=== PATIENT | male | born 1935 | race Caucasian/White ===

== ENCOUNTER 2018-04-01 18:26 | Emergency (ER) | payer MEDICARE, BC ==
[~2018-04-01] VITALS: Ht 177.8 cm; Wt 78.5 kg
[~2018-04-01 18:26] MED LIST: ASPIR-LOW81 MG PO; CITALOPRAM HBR20 MG PO; HYDROCODON-ACE1 EA10; ISOSORBIDE DINIT5 MG PO; OYST CAL D; PLAQUENIL200 MG; PLAVIX75 MG PO; POTASSIUM CHLO10 MEQ PO; PREDNISONE5 MG PO; TOPROL XL25 MG PO; ZESTRIL10 MG PO; ZETIA10 MG PO
[2018-04-01] MEDS ORDERED: SULFASALAZINE500 MG PO (18:45)
== END 2018-04-01 19:06 | disposition home or self-care (01) ==
LOC: ED 18:26
DX: H11.32 Conjunctival hemorrhage, left eye (principal); I10 Essential (primary) hypertension; Z79.899 Other long term (current) drug therapy; Z79.82 Long term (current) use of aspirin; Z79.52 Long term (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 steroids; Z79.891 Long term (current) use of opiate analgesic
CPT/HCPCS: 99282

== ENCOUNTER 2018-04-07 17:38 | Emergency (ER) | payer MEDICARE, BC ==
[~2018-04-07] VITALS: Ht 177.8 cm; Wt 78.5 kg
[~2018-04-07 17:38] MED LIST changes: +SULFASALAZINE500 MG PO
--- NOTE | 2018-04-08 19:41 | EKG ---
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
--- NOTE | 2018-04-09 14:53 | EKG ---
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
== END 2018-04-07 20:02 | disposition short-term general hospital (02) ==
LOC: ED 17:38
DX: I20.0 Unstable angina (principal); I10 Essential (primary) hypertension; Z87.891 Personal history of nicotine dependence; Z79.899 Other long term (current) drug therapy; Z79.82 Long term (current) use of aspirin; Z79.52 Long term (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 steroids; Z79.891 Long term (current) use of opiate analgesic
CPT/HCPCS: 71045; 80053; 84484; 85025; 93005; 93010; 96374; 99285

== ENCOUNTER 2020-02-05 21:24 | Emergency (ER) | payer MEDICARE, BC ==
[~2020-02-05] VITALS: Ht 177.8 cm; Wt 76.7 kg
--- OUTSIDE RECORDS SUMMARY | ~2020-02-05 | XMS | Clinical Summary ---
Demographics + + + | Address | [address] | | | [place] [address] | + + + | Home Phone | | + + + | Preferred Language | Unknown | + + + | Marital Status | | + + + | Roman Catholic Affiliation | Unknown | + + + | Race | White | + + + | Ethnic Group | Not or | + + + Author + + + | Author | [facility] | + + + | Organization | [facility] | + + + | Address | Unknown | + + + | Phone | Unavailable | + + + Care Team Providers + +------+ + | Care Aircraft Dispatcher Name | Role | Phone | + +------+ + PCP | Unavailable | + +------+ + Source Comments MAE is fully live on both [facility] Ambulatory and [facility] InPatient.[facility] Allergies Not on File Medications Not on file Active Problems Not on file Social History + +-------+ +--------+------+ | Tobacco Use | Types | Packs/Day | Years | Date | | | | | Used | | + +-------+ +--------+------+ | Never Assessed | | | | | + +-------+ +--------+------+ + + + | Sex Assigned at | Date Recorded | | | | + + + | Not on file | | + + + + + + + | Job Start Date | Occupation | Industry | + + + + | Not on file | Not on file | Not on file | + + + + + + + + | Travel History | Travel Start | Travel End | + + + + + + | No recent travel history available. | + + Last Filed Vital Signs Not on file Plan of Treatment Not on file Results Not on filefrom Last 3 Months Insurance + +--------+ +--------+ + +--------+ | Payer | Benefi | Subscriber | Effect | Phone | Address | Type | | | t Plan | ID | bc | | | | | | / | | Dates | | | | | | Group | | | | | | + +--------+ +--------+ + +--------+ | MEDICARE | MEDICA | xxxxxxxxxx | Effect | [phone] | [address] | Medica | | | RE A & | | bc | 1 | [address] | re | | | B | | for | | [place], [place] | | | | | | all | | [id number] | | | | | | dates | | | | + +--------+ +--------+ + +--------+ | [place] | BLUE | xxxxxxxxx | Effect | [phone] | [address] | PPO | | | CROSS | | bc | [address] | [address] | | | | [place] | | for | | [place], | | | | L | | all | | [place] [address] | | | | | | dates | | | | + +--------+ +--------+ + +--------+ + +--------+ +--------+ + + | Guarantor Name | Accoun | Relation to | Date | Phone | Billing Address | | | t Type | Patient | of | | | | | | | | | | + +--------+ +--------+ + + | Deep Ulloa | Person | Self | [birth year] | [address] | | | al/Fernando | | 1936 | [phone] | [place] [address] | | | sonny | | | 0 (Home) | | + +--------+ +--------+ + +"
--- OUTSIDE RECORDS SUMMARY | ~2020-02-05 | XMS | Encounter Summary ---
Demographics + + + | Address | [address] | | | [place] [address] | + + + | Home Phone | | + + + | Preferred Language | Unknown | + + + | Marital Status | | + + + | Congregational Affiliation | 1077 | + + + | Race | Unknown | + + + | Ethnic Group | Unknown | + + + Author + + + | Author | [facility] | | | and [place] | + + + | Organization | [facility] | | | and [place] | + + + | Address | Unknown | + + + | Phone | Unavailable | + + + Support + + + + + | Name | Relationship | Address | Phone | + + + + + | Aleida Ulloa | ECON | [address] | | | | | [place] | | | | | [address] | | + + + + + | Arin Ulloa | ECON | Unknown | | + + + + + Care Team Providers + +------+ + | Care Supply Requirements Officer Name | Role | Phone | + +------+ + PCP | Unavailable | + +------+ + Encounter Details +--------+ + + + + | Date | Type | Department | Care Team | Description | +--------+ + + + + | 03/10/ | Hospital | [facility] | Sathish Appiah S | | | 1999 | Encounter | [facility] | MD | | | | | GENERIC CONV DEPT | | | | | | [address] | | | | | | [place] | | | | | | [address] | | | | | | [phone] | | | +--------+ + + + [...] as of this encounter Plan of Treatment +--------+---------+ + + + | Date | Type | Specialty | Care Team | Description | +--------+---------+ + + + | 03/20/ | Office | Rheumatology | Roxi, | | | 2019 | Visit | | CHERELLE [address] | | | | | | [address] | | | | | | [place] [address] | | | | | | [phone] | | | | | | | | +--------+---------+ + + + | 04/05/ | Office | Cardiology | Andrade Hobbs, | | | 2019 | Visit | | MD Curtis ESPARZA | | | | | | [place] | | | | | | [phone] | | | | | | | | +--------+---------+ + + + documented as of this encounter Visit Diagnoses Not on filedocumented in this encounter"
--- OUTSIDE RECORDS SUMMARY | ~2020-02-05 | XMS | Encounter Summary ---
Demographics + + + | Address | [address] | | | [place] [address] | + + + | Home Phone | | + + + | Preferred Language | Unknown | + + + | Marital Status | | + + + | Gnosticism Affiliation | 1077 | + + + | Race | Unknown | + + + | Ethnic Group | Unknown | + + + Author + + + | Author | [facility] | | | and [place] | + + + | Organization | [facility] | | | and [...] [place] | | | | | [address] | | + + + + + | Arin Ulloa | ECON | Unknown | | + + + + + Care Team Providers + +------+ + | Care Wing Commander Name | Role | Phone | + +------+ + PCP | Unavailable | + +------+ + Encounter Details +--------+ + + + + | Date | Type | Department | Care Team | Description | +--------+ + + + + | 05/04/ | Hospital | [facility] | Derrek Darnell | | | 1998 | Encounter | DEBRA GENERIC | MD [place] | | | | | CONVERSION | [facility] | | | | | DEPARTMENT [address] | | | | | [facility] | [address] [place], [place] | | | | | [place], [place] | [id number] | | | | | [address] | | | | | | [phone] | | | +--------+ + + + [...] | | | | | [place] [address] | | | | | | [phone] | | | | | | | | +--------+---------+ + + + | 04/05/ | Office | Cardiology | Andrade Hobbs, | | | 2019 | Visit | | MD Curtis ESPARZA | | | | | | [place] | | | | | | [phone] | | | | | | | | +--------+---------+ + + + documented as of this encounter Visit Diagnoses Not on filedocumented in this encounter"
--- OUTSIDE RECORDS SUMMARY | ~2020-02-05 | XMS | Encounter Summary ---
Demographics + + + | Address | [address] | | | [place] [address] | + + + | Home Phone | | + + + | Preferred Language | Unknown | + + + | Marital Status | | + + + | Episcopal Affiliation | 1077 | + + + | Race | Unknown | + + + | Ethnic Group | Unknown | + + + Author + + + | Author | [facility] | | | and [place] | + + + | Organization | [facility] | | | and [...] [place] | | | | | [address] | | + + + + + | Arin Ulloa | ECON | Unknown | | + + + + + Care Team Providers + +------+ + | Care Quarry Manager Name | Role | Phone | + +------+ + PCP | Unavailable | + +------+ + Encounter Details +--------+ + + + + | Date | Type | Department | Care Team | Description | +--------+ + + + + | 03/24/ | Hospital | [facility] | Romero Ferguson | | | 1999 | Encounter | [facility] | [address] [place] | | | | | GENERIC CONV DEPT | [address] [place], [place] | | | | | [address] | [address] | | | | | [place] | | | | | | [address] | | | | | | [phone] | | | +--------+ + + + [...] | | | | | [place] [address] | | | | | | [phone] | | | | | | | | +--------+---------+ + + + | 04/05/ | Office | Cardiology | Andrade Hobbs, | | | 2019 | Visit | | MD Curtis ESPARZA | | | | | | [place] | | | | | | [address] | | | | | | | | +--------+---------+ + + + documented as of this encounter Visit Diagnoses Not on filedocumented in this encounter"
--- OUTSIDE RECORDS SUMMARY | ~2020-02-05 | XMS | Encounter Summary ---
Demographics + + + | Address | [address] | | | [place] [address] | + + + | Home Phone | | + + + | Preferred Language | Unknown | + + + | Marital Status | | + + + | Zoroastrianism Affiliation | 1077 | + + + | Race | Unknown | + + + | Ethnic Group | Unknown | + + + Author + + + | Author | [facility] | | | and [place] | + + + | Organization | [facility] | | | [...] [place] | | | | | [address] | | + + + + + | Arin Ulloa | ECON | Unknown | | + + + + + Care Team Providers + +------+ + | Care Metal Stud Framer Name | Role | Phone | + +------+ + PCP | Unavailable | + +------+ + Encounter Details +--------+ + + + + | Date | Type | Department | Care Team | Description | +--------+ + + + + | 10/03/ | Hospital | [facility] | Wilfrido Salazar MD | Unspecified | | 2009 | [facility] | | Tachycardia | | | | CLINICAL DECISION | | | | | | [address] | | | | | | [place], [place] | | | | | | [address] | | | | | | [phone] | | | +--------+ + + + [...] [address] | | | | | | [place] [address] | | | | | | [phone] | | | | | | | | +--------+---------+ + + + | 04/05/ | Office | Cardiology | Andrade Hobbs, | | | 2019 | Visit | | MD Curtis ESPARZA | | | | | | [place] | | | | | | [phone] | | | | | | | | +--------+---------+ + + + documented as of this encounter Procedures + +--------+ + + + | Procedure Name | Priori | Date/Time | Associated Diagnosis | Comments | | | ty | | | | + +--------+ + + + | CV CARDIAC PROCEDURE | Routin | 10/03/2009 | | Results for this | | | e | 2:55 PM | | procedure are in the | | | | PST | | results section. | + +--------+ + + + documented in this encounter Results CV CARDIAC PROCEDURE (10/03/2009 2:55 PM PST) + + | Specimen | + + | | + + + + + | Narrative | Performed At | + + + | [facility] | | | [facility] [address] | | | , | | | [id number]/CARDIOLOGY Patient Name: DEEP ULLOA Date of : | | | 1935 Medical Record: [id number] Account: [id number] | | | OPS/EDVINU [id number]/ Exam Date/Time: 10/03/2009 | | | 11:30 A Ordering Provider: WILFRIDO SALAZAR Order Detail: [id number] / | | | / HCL Exam Description: CCL HEART CATH LT RETRO PERC | | | | | | PROCEDURES 1. Selective coronary angiography. 2. Left heart | | | catheterization. 3. Left ventriculography. 4. Selective saphenous | | | vein graft angiography. 5. Selective left internal mammary artery | | | angiography. 6. Right femoral angiogram for possible closure device | | | deployment. 7. StarClose deployment at the right arteriotomy site. | | | INDICATIONS The patient is a very pleasant 73-year-old | | | gentleman with past medical history of coronary artery disease status | | | post a previous coronary artery bypass graft surgery who had a new | | | onset of atrial flutter and fibrillation. He was suspected of having | | | progression of his coronary artery disease and since he cannot | | | undergo a stress test in view of joint problems involving his upper | | | extremities, cardiac catheterization was advised to assess the status | | | of his coronary arteries as well as his bypass grafts. | | | DESCRIPTION OF PROCEDURE The patient presented to the cardiac | | | catheterization lab in the fasting state. An informed consent was | | | obtained from the patient after explaining the risks and benefits of | | | the procedure, as well as alternative options. The right groin area | | | was prepped and draped in the usual sterile fashion. Local anesthesia | | | was given to the right groin with 1% lidocaine. A 6-Kenyan vascular | | | sheath was inserted in the right femoral artery using the modified | | | Seldinger technique. A JL4 catheter was advanced over the wire under | | | fluoroscopic guidance and engaged selectively with the ostium of the | | | left main coronary artery. Contrast was injected and multiple | | | angiograms were obtained in different angles. The catheter was | | | exchanged over the wire to a JR4 catheter, which was engaged | | | selectively with the ostium of the right coronary artery. Contrast | | | was injected and multiple angiograms were obtained. The catheter was | | | then used to engage the saphenous vein graft to the RCA. Contrast was | | | injected and an angiogram was obtained. The same catheter was then | | | used to engage the saphenous vein graft to the ramus intermedius. | | | Contrast was injected and multiple angiograms were obtained in | | | different angles. The same catheter was then used to engage 2 other | | | saphenous vein graft stumps. Contrast was injected and angiogram was | | | obtained. The catheter was then exchanged over the wire to a 5-Kenyan | | | IM catheter which was engaged selectively with the ostium of the | | | RAM. Contrast was injected, multiple angiograms were obtained in | | | different angles. The catheter was then exchanged over the wire to a | | | pigtail catheter that was introduced into the left ventricular | | | cavity. A left ventriculogram was obtained in the 30-degree OATES | | | projection using 36 mL of contrast. The pigtail catheter was then | | | retrieved over a wire and a right femoral angiogram was obtained via | | | the side port of the vascular sheath. The sheath was pulled, and a | | | StarClose closure device was deployed at the right arteriotomy site | | | successfully. Hemostasis was achieved in the cardiac catheterization | | | lab, and the patient was transferred out of the catheterization lab | | | in stable condition. FINDINGS HEMODYNAMICS Aortic pressure | | | was 153/66 with a mean aortic pressure of 96. Left ventricular | | | pressure was 156/16 with a left ventricular end-diastolic pressure of | | | 16. There was no significant transaortic pressure gradient on | | | catheter pullback. CORONARY ANGIOGRAPHY 1. Left main had a mid | | | 40% plaque. 2. The LAD had mild diffuse calcification with mild | | | diffuse disease. The mid segment of the LAD had a discrete 70% | | | stenosis. The first diagonal branch was a small-caliber vessel | | | with a mid 90% stenosis. 3. The ramus intermedius was totally | | | occluded at its ostium. 4. The left circumflex was a very | | | small-caliber vessel with an ostial 99% stenosis. 5. The right | | | coronary artery was totally occluded at its ostium. The mid | | | segment of the RCA was filling via bridging collaterals. 6. The very | | | distal portion of the RCA was filling via collaterals from the | | | distal LAD, visualized upon injection of the RAM graft as well | | | as the comanche artery. 7. Two saphenous vein grafts to the RCA | | | appeared to be totally occluded. 8. The saphenous vein graft to | | | the diagonal or an obtuse marginal branch was totally occluded. | | | 9. Saphenous vein graft to the ramus intermedius was patent without | | | any significantly obstructive stenosis in the ramus intermedius. | | | 10. The RAM to the LAD was patent. The LAD beyond the RAM | | | anastomosis did not have any significantly obstructive stenosis. | | | LEFT VENTRICULOGRAM Left ventriculogram revealed a low normal | | | left ventricular systolic function with ejection fraction of 50% with | | | posterobasal hypokinesis. CONCLUSION 1. Coronary artery and | | | graft disease as discussed above. 2. Low normal left ventricular | | | systolic function, ejection fraction of 50%, with posterobasal | | | hypokinesis. 3. Mildly elevated left ventricular end-diastolic | | | pressure. RECOMMENDATIONS 1. Medical therapy. 2. Aggressive risk | | | factor modification. ESTIMATED BLOOD LOSS Less than 50 mL. | | | Read by WILFRIDO SALAZAR MD 10/04/2009 09:03 P Electronically Signed | | | by WILFRIDO SALAZAR MD 10/12/2009 09:12 P P | | | A /[id number]/ cc: MARIANNE SERRANO DO | | | DO WILFRIDO HARDING MD | | + + + + + | Procedure Note | + + | Reginaldo Valencia Conversion - 05/23/2019 6:36 PM PDT | | [facility] | | [facility] [address] | | , | | | | [id number]/CARDIOLOGY | | | | Patient Name: DEEP ULLOA | | Date of : 1935 | | Medical Record: [id number] | | Account: [id number] | | OPS/EDVINU [id number]/ | | | | | | Exam Date/Time: 10/03/2009 11:30 A | | Ordering Provider: WILFRIDO SALAZAR | | Order Detail: [id number] / / HCL | | Exam Description: CCL HEART CATH LT RETRO PERC | | | | PROCEDURES | | 1. Selective coronary angiography. | | 2. Left heart catheterization. | | 3. Left ventriculography. | | 4. Selective saphenous vein graft angiography. | | 5. Selective left internal mammary artery angiography. | | 6. Right femoral angiogram for possible closure device deployment. | | 7. StarClose deployment at the right arteriotomy site. | | | | INDICATIONS | | The patient is a very pleasant 73-year-old gentleman with past | | medical history of coronary artery disease status post a previous | | coronary artery bypass graft surgery who had a new onset of atrial | | flutter and fibrillation. He was suspected of having progression of his | | coronary artery disease and since he cannot undergo a stress test in | | view of joint problems involving his upper extremities, cardiac | | catheterization was advised to assess the status of his coronary | | arteries as well as his bypass grafts. | | | | DESCRIPTION OF PROCEDURE | | The patient presented to the cardiac catheterization lab in the fasting | | state. An informed consent was obtained from the patient after | | explaining the risks and benefits of the procedure, as well as | | alternative options. The right groin area was prepped and draped in the | | usual sterile fashion. Local anesthesia was given to the right groin | | with 1% lidocaine. A 6-Kenyan vascular sheath was inserted in the right | | femoral artery using the modified Seldinger technique. A JL4 catheter | | was advanced over the wire under fluoroscopic guidance and engaged | | selectively with the ostium of the left main coronary artery. Contrast | | was injected and multiple angiograms were obtained in different angles. | | The catheter was exchanged over the wire to a JR4 catheter, which was | | engaged selectively with the ostium of the right coronary artery. | | Contrast was injected and multiple angiograms were obtained. The | | catheter was then used to engage the saphenous vein graft to the RCA. | | Contrast was injected and an angiogram was obtained. The same catheter | | was then used to engage the saphenous vein graft to the ramus | | intermedius. Contrast was injected and multiple angiograms were obtained | | in different angles. The same catheter was then used to engage 2 other | | saphenous vein graft stumps. Contrast was injected and angiogram was | | obtained. The catheter was then exchanged over the wire to a 5-Kenyan IM | | catheter which was engaged selectively with the ostium of the RAM. | | Contrast was injected, multiple angiograms were obtained in different | | angles. The catheter was then exchanged over the wire to a pigtail | | catheter that was introduced into the left ventricular cavity. A left | | ventriculogram was obtained in the 30-degree OATES projection using 36 mL | | of contrast. The pigtail catheter was then retrieved over a wire and a | | right femoral angiogram was obtained via the side port of the vascular | | sheath. The sheath was pulled, and a StarClose closure device was | | deployed at the right arteriotomy site successfully. Hemostasis was | | achieved in the cardiac catheterization lab, and the patient was | | transferred out of the catheterization lab in stable condition. | | | | FINDINGS | | | | HEMODYNAMICS | | Aortic pressure was 153/66 with a mean aortic pressure of 96. | | Left ventricular pressure was 156/16 with a left ventricular | | end-diastolic pressure of 16. | | There was no significant transaortic pressure gradient on catheter | | pullback. | | | | CORONARY ANGIOGRAPHY | | 1. Left main had a mid 40% plaque. | | 2. The LAD had mild diffuse calcification with mild diffuse disease. The | | mid segment of the LAD had a discrete 70% stenosis. The first | | diagonal branch was a small-caliber vessel with a mid 90% stenosis. | | 3. The ramus intermedius was totally occluded at its ostium. | | 4. The left circumflex was a very small-caliber vessel with an ostial | | 99% stenosis. | | 5. The right coronary artery was totally occluded at its ostium. The mid | | segment of the RCA was filling via bridging collaterals. | | 6. The very distal portion of the RCA was filling via collaterals from | | the distal LAD, visualized upon injection of the RAM graft as well | | as the comanche artery. | | 7. Two saphenous vein grafts to the RCA appeared to be totally occluded. | | | | 8. The saphenous vein graft to the diagonal or an obtuse marginal branch | | was totally occluded. | | 9. Saphenous vein graft to the ramus intermedius was patent without any | | significantly obstructive stenosis in the ramus intermedius. | | 10. The RAM to the LAD was patent. The LAD beyond the ARM anastomosis | | did not have any significantly obstructive stenosis. | | | | LEFT VENTRICULOGRAM | | Left ventriculogram revealed a low normal left ventricular systolic | | function with ejection fraction of 50% with posterobasal hypokinesis. | | | | CONCLUSION | | 1. Coronary artery and graft disease as discussed above. | | 2. Low normal left ventricular systolic function, ejection fraction of | | 50%, with posterobasal hypokinesis. | | 3. Mildly elevated left ventricular end-diastolic pressure. | | | | RECOMMENDATIONS | | 1. Medical therapy. | | 2. Aggressive risk factor modification. | | | | ESTIMATED BLOOD LOSS | | Less than 50 mL. | | | | | | Read by | | WILFRIDO SALAZAR MD 10/04/2009 09:03 P | | Electronically Signed by | | WILFRIDO SALAZAR MD 10/12/2009 09:12 P | | | | P | | A | | /[id number]/ | | cc: MARIANNE SERRANO DO | | NAYAN RUANO DO | | WILFRIDO SALAZAR MD | + + documented in this encounter Visit Diagnoses + + | Diagnosis | + + | Tachycardia, unspecified | + + documented in this encounter"
--- OUTSIDE RECORDS SUMMARY | ~2020-02-05 | XMS | Encounter Summary ---
Demographics + + + | Address | [address] | | | [place] [address] | + + + | Home Phone | | + + + | Preferred Language | Unknown | + + + | Marital Status | | + + + | Bahai Affiliation | 1077 | + + + | Race | Unknown | + + + | Ethnic Group | Unknown | + + + Author + + + | Author | [facility] | | | and [place] | + + + | Organization | [facility] | | | and [place] | + + + | Address | Unknown | + + + | Phone | Unavailable | + + + Support + + + + + | Name | Relationship | Address | Phone | + + + + + | Aleida Ulloa | ECON | [address] | | | | | [place] | | | | | [address] | | + + + + + | Arin lUloa | ECON | Unknown | | + + + + + Care Team Providers + +------+ + | Care Physical Therapy Technician Name | Role | Phone | + +------+ + | Fabricio Bah | PCP | | | MD | | | + +------+ + Encounter Details +--------+ + + + + | Date | Type | Department | Care Team | Description | +--------+ + + + + | 10/23/ | Orders Only | [facility] | Roxi, | | | 2016 | | RHEUMATOLOGY [address] | [address] | | | | | [address] | [address] | | | | | [place], [place] | [place] [address] | | | | | [address] | [phone] | | | | | [phone] | | | +--------+ + + + [...] | | | | | [place] [address] | | | | | | [phone] | | | | | | | | +--------+---------+ + + + | 04/05/ | Office | Cardiology | Andrade Hobbs, | | | 2019 | Visit | | MD Curtis ESPARZA | | | | | | [place] | | | | | | [address] | | | | | | | | +--------+---------+ + + + documented as of this encounter Procedures + +--------+ + + + | Procedure Name | Priori | Date/Time | Associated Diagnosis | Comments | | | ty | | | | + +--------+ + + + | EXTERNAL LAB: CBC | Routin | 10/23/2015 | | Results for this | | | e | 10:35 AM | | procedure are in the | | | | PST | | results section. | + +--------+ + + + | SEDIMENTATION RATE, | Routin | 10/23/2015 | | Results for this | | AUTOMATED | e | 10:35 AM | | procedure are in the | | | | PST | | results section. | + +--------+ + + + | COMPREHENSIVE | Routin | 10/23/2015 | | Results for this | | METABOLIC PANEL | e | 10:35 AM | | procedure are in the | | | | PST | | results section. | + +--------+ + + + documented in this encounter Results Sedimentation rate, automated (10/23/2015 10:35 AM PST) + +-------+ + + + | Component | Value | Ref Range | Performed | Pathologist | | | | | At | Signature | + +-------+ + + + | Sed Rate | 7 | 0 - 20 | EXTERNAL | | | | | | LAB | | + +-------+ + + + + + | Specimen | + + | Blood specimen | | (specimen) | + + + +---------+ + + | Performing | Address | City/State/Zipcode | Phone Number | | Organization | | | | + +---------+ + + | EXTERNAL LAB | | | | + +---------+ + + External Lab: CBC (10/23/2015 10:35 AM PST) + + + + + + | Component | Value | Ref Range | Performed | Pathologist | | | | | At | Signature | + + + + + + | WBC | 7.4 | 3.8 - 11.0 | EXTERNAL | | | | | 10*3/uL | LAB | | + + + + + + | Red Blood | 4.60 | 4.20 - 5.70 | EXTERNAL | | | Cells | | | LAB | | | Counted | | | | | + + + + + + | Hemoglobin | 15.0 | 13.2 - 17.0 | EXTERNAL | | | | | g/dL | LAB | | + + + + + + | Hematocrit, | 43.0 | 39.0 - 50.0 % | EXTERNAL | | | POC | | | LAB | | + + + + + + | MCV | 93.0 | 80.0 - 100.0 fL | EXTERNAL | | | | | | LAB | | + + + + + + | MCH | 32.6 | 27.0 - 34.0 pg | EXTERNAL | | | | | | LAB | | + + + + + + | MCHC | 34.9 | 32.0 - 35.5 | EXTERNAL | | | | | g/dL | LAB | | + + + + + + | Platelet | 145 (L) | 150 - 400 | EXTERNAL | | | Count | | 10*3/uL | LAB | | | Plasma | | | | | + + + + + + | MPV | 8.8 | fL | EXTERNAL | | | | | | LAB | | + + + + + + | Differentia | AUTOMATED | | EXTERNAL | | | l Type | | | LAB | | + + + + + + | % Segmented | 76.4 | | EXTERNAL | | | | | | LAB | | | Neutrophils | | | | | + + + + + + | % | 14.0 | % | EXTERNAL | | | Lymphocytes | | | LAB | | + + + + + + | % Monocytes | 6.8 | % | EXTERNAL | | | | | | LAB | | + + + + + + | % | 2.3 | % | EXTERNAL | | | Eosinophils | | | LAB | | + + + + + + | % Basophils | 0.5 | % | EXTERNAL | | | | | | LAB | | + + + + + + | Absolute | 5.7 | 1.9 - 7.4 | EXTERNAL | | | Segmented | | 10*3/uL | LAB | | | Neutrophils | | | | | + + + + + + | Absolute | 1.0 | 1.0 - 3.9 | EXTERNAL | | | Lymphocytes | | 10*3/uL | LAB | | + + + + + + | Absolute | 0.5 | 0.0 - 0.8 | EXTERNAL | | | Monocytes | | 10*3/uL | LAB | | + + + + + + | Absolute | 0.2 | 0.0 - 0.5 | EXTERNAL | | | Eosinophils | | 10*3/uL | LAB | | + + + + + + | Absolute | 0.0 | 0.0 - 0.1 | EXTERNAL | | | Basophils | | 10*3/uL | LAB | | + + + + + + + + | Specimen | + + | Blood specimen | | (specimen) | + + + +---------+ + + | Performing | Address | City/State/Zipcode | Phone Number | | Organization | | | | + +---------+ + + | EXTERNAL LAB | | | | + +---------+ + + Comprehensive Metabolic Panel (10/23/2015 10:35 AM PST) + + + + + + | Component | Value | Ref Range | Performed | Pathologist | | | | | At | Signature | + + + + + + | Na | 143 | 135 - 143 | EXTERNAL | | | | | mmol/L | LAB | | + + + + + + | K | 4.4 | 3.5 - 4.9 | EXTERNAL | | | | | mmol/L | LAB | | + + + + + + | Cl | 102 | 99 - 109 mmol/L | EXTERNAL | | | | | | LAB | | + + + + + + | CO2 | 33 (H) | 23 - 32 mmol/L | EXTERNAL | | | | | | LAB | | + + + + + + | Anion Gap | 12 | 5 - 20 mmol/L | EXTERNAL | | | | | | LAB | | + + + + + + | Glucose, | 123 (H) | 65 - 99 mg/dL | EXTERNAL | | | Fasting | | | LAB | | + + + + + + | BUN | 22 | 8 - 25 mg/dL | EXTERNAL | | | | | | LAB | | + + + + + + | Creatinine | 1.2 | 0.70 - 1.30 | EXTERNAL | | | | | mg/dL | LAB | | + + + + + + | BUN/Creatin | 18 | | EXTERNAL | | | ine Ratio | | | LAB | | + + + + + + | Calcium | 9.6 | 8.5 - 10.5 | EXTERNAL | | | | | mg/dL | LAB | | + + + + + + | Protein, | 6.0 (L) | 6.3 - 8.2 g/dL | EXTERNAL | | | Total | | | LAB | | + + + + + + | Albumin | 4.2 | 3.3 - 4.8 g/dL | EXTERNAL | | | | | | LAB | | + + + + + + | Globulin | 1.8 | 1.3 - 4.9 g/dL | EXTERNAL | | | | | | LAB | | + + + + + + | A/G Ratio | 2.3 | 1.0 - 2.4 | EXTERNAL | | | | | | LAB | | + + + + + + | Bilirubin | 0.8 | 0.1 - 1.5 mg/dL | EXTERNAL | | | Total | | | LAB | | + + + + + + | ALP, | 86 | 35 - 115 U/L | EXTERNAL | | | External | | | LAB | | + + + + + + | AST | 16 | 10 - 45 U/L | EXTERNAL | | | | | | LAB | | + + + + + + | ALT | 15 | 10 - 65 U/L | EXTERNAL | | | | | | LAB | | + + + + + + | Estimated | >60Comment: GFR <60: | | EXTERNAL | | | GFR | CHRONIC KIDNEY DISEASE, | | LAB | | | | IF FOUND OVER A 3 MONTH | | | | | | PERIOD. GFR <15: KIDNEY | | | | | | FAILURE. FOR | | | | | | AMERICANS, MULTIPLY THE | | | | | | CALCULATED GFR BY 1.210. | | | | + + + + + + + + | Specimen | + + | Blood specimen | | (specimen) | + + + +---------+ + + | Performing | Address | City/State/Zipcode | Phone Number | | Organization | | | | + +---------+ + + | EXTERNAL LAB | | | | + +---------+ + + documented in this encounter Visit Diagnoses Not on filedocumented in this encounter"
--- OUTSIDE RECORDS SUMMARY | ~2020-02-05 | XMS | Encounter Summary ---
Demographics + + + | Address | [address] | | | [place] [address] | + + + | Home Phone | | + + + | Preferred Language | Unknown | + + + | Marital Status | | + + + | Pentecostal Affiliation | 1077 | + + + | Race | Unknown | + + + | Ethnic Group | Unknown | + + + Author + + + | Author | [facility] | | | and [place] | + + + | Organization | [facility] | | | and [...] [place] | | | | | [address] | | + + + + + | Arin Ulloa | ECON | Unknown | | + + + + + Care Team Providers + +------+ + | Care Compliance Engineer Products Name | Role | Phone | + +------+ + PCP | Unavailable | + +------+ + Encounter Details +--------+ + + + + | Date | Type | Department | Care Team | Description | +--------+ + + + + | 07/17/ | [facility] | Abram Templeton MD | | | [facility] | Encounter | [facility] | [address] | | | | | [address] | [place], [place] | | | | | [place], [place] | [phone] | | | | | [address] | | | | | | [phone] | | | +--------+ + + + [...] | | | | | [place] [address] | | | | | | [phone] | | | | | | | | +--------+---------+ + + + | 04/05/ | Office | Cardiology | Andrade Hobbs, | | | 2019 | Visit | | MD Curtis ESPARZA | | | | | | [place] | | | | | | [phone] | | | | | | | | +--------+---------+ + + + documented as of this encounter Visit Diagnoses Not on filedocumented in this encounter"
--- OUTSIDE RECORDS SUMMARY | ~2020-02-05 | XMS | Encounter Summary ---
Demographics + + + | Address | [address] | | | [place] [address] | + + + | Home Phone | | + + + | Preferred Language | Unknown | + + + | Marital Status | | + + + | Amish Affiliation | 1077 | + + + | Race | Unknown | + + + | Ethnic Group | Unknown | + + + Author + + + | Author | [facility] | | | and [place] | + + + | Organization | [facility] | | | [...] [place] | | | | | [address] | | + + + + + | Arin Ulloa | ECON | Unknown | | + + + + + Care Team Providers + +------+ + | Care Mechanical Integrity Engineer Name | Role | Phone | + +------+ + PCP | Unavailable | + +------+ + Encounter Details +--------+ + + + + | Date | Type | Department | Care Team | Description | +--------+ + + + + | 09/10/ | Hospital | [facility] | Aleida Marino, | | | 2005 | Encounter | FAMILY INTRA OP | MD [address] | | | | | [address] | [place] | | | | | [place] | [id number] | | | | | [address] | | | | | | [phone] | | | +--------+ + + + [...] | | | | | [place] [address] | | | | | | [phone] | | | | | | | | +--------+---------+ + + + | 04/05/ | Office | Cardiology | Andrade Hobbs, | | | 2019 | Visit | | MD Curtis ESPARZA | | | | | | [place] | | | | | | [phone] | | | | | | | | +--------+---------+ + + + documented as of this encounter Procedures + +--------+ + + + | Procedure Name | Priori | Date/Time | Associated Diagnosis | Comments | | | ty | | | | + +--------+ + + + | SURGICAL PATHOLOGY | Routin | 09/10/2005 | | Results for this | | EXAM | e | 12:00 AM | | procedure are in the | | | | PST | | results section. 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 | | | - NEGATIVE FOR HIGH-GRADE DYSPLASIA OR MALIGNANCY. - | | | MARGINS FREE OF INVOLVEMENT. C2NR Dictated by: Unknown | | | GROSS EXAMINATION The specimen labeled and designated | | | "Artemio - rectal polyp" is received fresh and subsequently placed in | | | formalin and consists of an irregular rubbery, oriented sheet of | | | tissue that is received sutured to a Telfa pad with the designations | | | clockwise, as follows, proximal L, distal R, with the proximal | | | designation in the 12 o'clock position. The specimen is partially | | | covered by a pink-solorzano to red-solorzano epithelium with an irregular solorzano | | | raised and roughened area up to 3.2 cm, coming to within 0.2 cm of | | | multiple margins, particularly on the left aspect. The deep surfaces | | | are dark red-brown, irregular and roughened. The specimen is inked in | | | quadrants as follows, 12-3 o'clock blue, 3-6 o'clock orange, 6-9 | | | o'clock yellow, 9-12 o'clock black. The specimen is sectioned with the | | | 12-3-6 o'clock half in (A1-A3) and the 6-9-12 o'clock half in | | | (A4-A6). pk/FM Dictated by: [email or web address] MICROSCOPIC | | | EXAMINATION Histologic sections of all submitted blocks are | | | examined by light microscopy. The microscopic findings, together | | | with the gross findings, support the pathologic diagnosis. | | | Dictated by: Unknown | | | | | | Signed By: Unknown 09/12/2005 | | | | | | | | + + + + + + + + | Performing | Address | City/State/Zipcode | Phone Number | | Organization | | | | + + + + + | [facility] | [address] | [place] [address] | | | [facility] | | | | | LAB[facility]ATORY | | | | + + + + + | [facility] | | | | [facility] | | [facility] | [facility]ORY | | | | + + + + + documented in this encounter Visit Diagnoses Not on filedocumented in this encounter
--- OUTSIDE RECORDS SUMMARY | ~2020-02-05 | XMS | Encounter Summary ---
Demographics + + + | Address | [address] | | | [place] [address] | + + + | Home Phone | | + + + | Preferred Language | Unknown | + + + | Marital Status | | + + + | Adventist Affiliation | 1077 | + + + | Race | Unknown | + + + | Ethnic Group | Unknown | + + + Author + + + | Author | [facility] | | | and [place] | + + + | Organization | [facility] | | | [...] [place] | | | | | [address] | | + + + + + | Arin Ulloa | ECON | Unknown | | + + + + + Care Team Providers + +------+ + | Care Runner Worker Name | Role | Phone | + +------+ + | Fabricio Bah | PCP | | | MD | | | + +------+ + Reason for Visit + + + | Reason | Comments | + + + | Medication Refill | | + + + Encounter Details +--------+--------+ + + + | Date | Type | Department | Care Team | Description | +--------+--------+ + + + | 06/26/ | Refill | [facility] | Philly Hanna | Medication Refill | | 2019 | | RHEUMATOLOGY [address] | MD Richie [address] | | | | | [address] | [address] | | | | | [place], [place] | [place] [address] | | | | | [address] | [phone] | | | | | [phone] | | | +--------+--------+ + + + Social History + +-------+ +--------+------+ | Tobacco Use | Types | Packs/Day | Years | Date | | | | | Used | | + +-------+ +--------+------+ | Never Smoker | | | | | + +-------+ +--------+------+ + +---+---+---+ | Smokeless Tobacco: | | | | | Never Used | | | | + +---+---+---+ + + + | Sex Assigned at [...] 2019 | Visit | | [address] | | | | | | [address] | | | | | | [place] [address] | | | | | | [phone] | | | | | | | | +--------+---------+ + + + | 04/05/ | Office | Cardiology | Andrade Hobbs, | | | 2019 | Visit | | MD Curtis ESPARZA | | | | | | [place] | | | | | | [address] | | | | | | | | +--------+---------+ + + + documented as of this encounter Visit Diagnoses Not on filedocumented in this encounter"
--- OUTSIDE RECORDS SUMMARY | ~2020-02-05 | XMS | Encounter Summary ---
Demographics + + + | Address | [address] | | | [place] [address] | + + + | Home Phone | | + + + | Preferred Language | Unknown | + + + | Marital Status | | + + + | Restoration Affiliation | 1077 | + + + | Race | Unknown | + + + | Ethnic Group | Unknown | + + + Author + + + | Author | [facility] | | | and [place] | + + + | Organization | [facility] | | | [...] [place] | | | | | [address] | | + + + + + | Arin Ulloa | ECON | Unknown | | + + + + + Care Team Providers + +------+ + | Care Guest History Clerk Name | Role | Phone | + +------+ + | Fabricio Bah | PCP | | | MD | | | + +------+ + Encounter Details +--------+ + + + + | Date | Type | Department | Care Team | Description | +--------+ + + + + | 03/29/ | Orders Only | [facility] | Philly Hanna | | | 2019 | | RHEUMATOLOGY [address] | MD Richie [address] | | | | | [address] | [address] | | | | | [place] | [place] [address] | | | | | [address] | [phone] | | | | | [phone] | | | +--------+ + + + [...] | | | | | [place] [address] | | | | | | [phone] | | | | | | | | +--------+---------+ + + + | 04/05/ | Office | Cardiology | Andrade Hobbs, | | | 2019 | Visit | | MD Curtis ESPARZA | | | | | | [place] | | | | | | [address] | | | | | | | | +--------+---------+ + + + documented as of this encounter Visit Diagnoses Not on filedocumented in this encounter"
--- OUTSIDE RECORDS SUMMARY | ~2020-02-05 | XMS | Encounter Summary ---
Demographics + + + | Address | [address] | | | [place] [address] | + + + | Home Phone | | + + + | Preferred Language | Unknown | + + + | Marital Status | | + + + | Mandaeism Affiliation | 1077 | + + + | Race | Unknown | + + + | Ethnic Group | Unknown | + + + Author + + + | Author | [facility] | | | and [place] | + + + | Organization | [facility] | | [...] [place] | | | | | [address] | | + + + + + | Arin Ulloa | ECON | Unknown | | + + + + + Care Team Providers + +------+ + | Care Food And Nutrition Teacher Name | Role | Phone | + +------+ + PCP | Unavailable | + +------+ + Encounter Details +--------+ + + + + | Date | Type | Department | Care Team | Description | +--------+ + + + + | 07/20/ | Hospital | [facility] | Derrek Darnell | | | 1997 | Encounter | [facility] | Zack Palmyra | | | | | [address] | [facility] | | | | | [place], [place] | [address] | | | | | [address] | Road [place], [place] | | | | | [phone] | [address] | | | | | | | | +--------+ + + + [...] | | | | | [place] [address] | | | | | | [phone] | | | | | | | | +--------+---------+ + + + | 04/05/ | Office | Cardiology | Andrade Hobbs, | | | 2019 | Visit | | MD Curtis ESPARZA | | | | | | [place] | | | | | | [id number] | | | | | | | | +--------+---------+ + + + documented as of this encounter Visit Diagnoses Not on filedocumented in this encounter"
--- OUTSIDE RECORDS SUMMARY | ~2020-02-05 | XMS | Encounter Summary ---
Demographics + + + | Address | [address] | | | [place] [address] | + + + | Home Phone | | + + + | Preferred Language | Unknown | + + + | Marital Status | | + + + | Moravian Affiliation | 1077 | + + + | Race | Unknown | + + + | Ethnic Group | Unknown | + + + Author + + + | Author | [facility] | | | and [place] | + + + | Organization | [facility] | | | [...] [place] | | | | | [address] | | + + + + + | Arin Ulloa | ECON | Unknown | | + + + + + Care Team Providers + +------+ + | Care Conference Director Name | Role | Phone | + +------+ + | Fabricio Bah | PCP | | | MD | | | + +------+ + Encounter Details +--------+ + + + + | Date | Type | Department | Care Team | Description | +--------+ + + + + | 11/27/ | Orders Only | [facility] | Conversion | | | 2016 | | RHEUMATOLOGY [address] | Transaction, | | | | | [address] | Provider Unknown | | | | | [place] | | | | | | [address] | (Fax) | | | | | [phone] | | | +--------+ + + + [...] | | | | | [place] [address] | | | | | | [phone] | | | | | | | | +--------+---------+ + + + | 04/05/ | Office | Cardiology | Andrade Hobbs, | | | 2019 | Visit | | MD Curtis ESPARZA | | | | | | [place] | | | | | | [address] | | | | | | | | +--------+---------+ + + + documented as of this encounter Procedures + +--------+ + + + | Procedure Name | Priori | Date/Time | Associated Diagnosis | Comments | | | ty | | | | + +--------+ + + + | EXTERNAL LAB: [facility] | Routin | 11/28/2015 | | Results for this | | | e | 12:00 AM | | procedure are in the | | | | PST | | results section. | + +--------+ + + + documented in this encounter Results External Lab: [facility] (11/28/2015 12:00 AM PST) + +-------+ + + + | Component | Value | Ref Range | Performed | Pathologist | | | | | At | Signature | + +-------+ + + + | WBC | 6.1 | 10 | EXTERNAL | | | | | | LAB | | + +-------+ + + + | Red Blood | 4.65 | 10 | EXTERNAL | | | Cells | | | LAB | | | Counted | | | | | + +-------+ + + + | Hemoglobin | 14.6 | g/dL | EXTERNAL | | | | | | LAB | | + +-------+ + + + | Hematocrit, | 42.7 | % | EXTERNAL | | | POC | | | LAB | | + +-------+ + + + | MCV | 91.9 | fL | EXTERNAL | | | | | | LAB | | + +-------+ + + + | MCH | 31 | pg | EXTERNAL | | | | | | LAB | | + +-------+ + + + | MCHC | 34 | g/dL | EXTERNAL | | | | | | LAB | | + +-------+ + + + | Platelet | 145 | K/ L | EXTERNAL | | | Count | | | LAB | | | Plasma | | | | | + +-------+ + + + | RDW-CV | 13.4 | % | EXTERNAL | | | | | | LAB | | + +-------+ + + + | MPV | | fL | EXTERNAL | | | | | | LAB | | + +-------+ + + + | Differentia | | | EXTERNAL | | | l Type | | | LAB | | + +-------+ + + + | % Segmented | 78.2 | % | EXTERNAL | | | | | | LAB | | | Neutrophils | | | | | + +-------+ + + + | % | 13.9 | % | EXTERNAL | | | Lymphocytes | | | LAB | | + +-------+ + + + | % Monocytes | 5.7 | % | EXTERNAL | | | | | | LAB | | + +-------+ + + + | % | 1.8 | % | EXTERNAL | | | Eosinophils | | | LAB | | + +-------+ + + + | % Basophils | 0.4 | % | EXTERNAL | | | | | | LAB | | + +-------+ + + + | Absolute | | / L | EXTERNAL | | | Segmented | | | LAB | | | Neutrophils | | | | | + +-------+ + + + | Absolute | | / L | EXTERNAL | | | Lymphocytes | | | LAB | | + +-------+ + + + | Absolute | | / L | EXTERNAL | | | Monocytes | | | LAB | | + +-------+ + + + | Absolute | | / L | EXTERNAL | | | Eosinophils | | | LAB | | + +-------+ + + + | Absolute | | / L | EXTERNAL | | | Basophils | | | LAB | | + [...]
--- OUTSIDE RECORDS SUMMARY | ~2020-02-05 | XMS | Encounter Summary ---
Demographics + + + | Address | [address] | | | [place] [address] | + + + | Home Phone | | + + + | Preferred Language | Unknown | + + + | Marital Status | | + + + | Hoahaoism Affiliation | 1077 | + + + | Race | Unknown | + + + | Ethnic Group | Unknown | + + + Author + + + | Author | [facility] | | | and [place] | + + + | Organization | [facility] | | | [...] [place] | | | | | [address] | | + + + + + | Arin Ulloa | ECON | Unknown | | + + + + + Care Team Providers + +------+ + | Care Public Health Epidemiologist Name | Role | Phone | + +------+ + PCP | Unavailable | + +------+ + Encounter Details +--------+ + + + + | Date | Type | Department | Care Team | Description | +--------+ + + + + | 08/29/ | Hospital | [facility] | Derrek Darnell | | | 2000 | Encounter | [facility] | MD Zack Munday | | | | | CONVERSION | [facility] | | | | | DEPARTMENT [address] | [address] | | | | | [facility] | Road [place], [place] | | | | | [place], [place] | [id number] | | | | | [address] | | | | | | [phone] | | | +--------+ + + + [...] | | | | | [place] [address] | | | | | | [phone] | | | | | | | | +--------+---------+ + + + | 04/05/ | Office | Cardiology | Andrade Hobbs, | | | 2019 | Visit | | MD Curtis ESPARZA | | | | | | [place] | | | | | | [phone] | | | | | | | | +--------+---------+ + + + documented as of this encounter Visit Diagnoses Not on filedocumented in this encounter"
--- OUTSIDE RECORDS SUMMARY | ~2020-02-05 | XMS | Encounter Summary ---
Demographics + + + | Address | [address] | | | [place] [address] | + + + | Home Phone | | + + + | Preferred Language | Unknown | + + + | Marital Status | | + + + | Caodaism Affiliation | 1077 | + + + | Race | Unknown | + + + | Ethnic Group | Unknown | + + + Author + + + | Author | [facility] | | | and [place] | + + + | Organization | [facility] | | | [...] [place] | | | | | [address] | | + + + + + | Arin Ulloa | ECON | Unknown | | + + + + + Care Team Providers + +------+ + | Care Program Facilitator Name | Role | Phone | + +------+ + PCP | Unavailable | + +------+ + Encounter Details +--------+ + + + + | Date | Type | Department | Care Team | Description | +--------+ + + + + | 06/09/ | Hospital | [facility] | Anthony Taylor, | | | 1999 | Encounter | DEBRA MEEK | [address] | | | | | [address] | [place], [place] | | | | | [place], [place] | [id number] | | | | | [address] | | | | | | [phone] | | | +--------+ + + + [...] | | | | | [place] [address] | | | | | | [phone] | | | | | | | | +--------+---------+ + + + | 04/05/ | Office | Cardiology | Andrade Hobbs, | | | 2019 | Visit | | MD Curtis ESPARZA | | | | | | [place] | | | | | | [id number] | | | | | | | | +--------+---------+ + + + documented as of this encounter Visit Diagnoses Not on filedocumented in this encounter"
--- OUTSIDE RECORDS SUMMARY | ~2020-02-05 | XMS | Encounter Summary ---
Demographics + + + | Address | [address] | | | [place] [address] | + + + | Home Phone | | + + + | Preferred Language | Unknown | + + + | Marital Status | | + + + | Methodist Affiliation | 1077 | + + + [...] [place] | | | | | [address] | | + + + + + | Arin Ulloa | ECON | Unknown | | + + + + + Care Team Providers + +------+ + | Care Draw Off Worker Name | Role | Phone | [...] Description | +--------+--------+ + + + | 07/20/ | Refill | [facility] | Andrade Hobbs, | Medication Refill | | 2019 | | CARDIOLOGY CARMEN | MD Curtis ESPARZA | | | | | [address] | [place], [place] | | | | | [place], [place] | [address] | | | | | [address] | | | | | | [phone] | | | +--------+--------+ + + + [...] 2019 | Visit | | CHERELLE [address] | | | | | | [address] | | | | | | [place] [address] | | | | | | [phone] | | | | | | | | +--------+---------+ + + + | 04/05/ | Office | Cardiology | Andrade Hobbs, | | | 2019 | Visit | | MD Curtis ESPARZA | | | | | | [place] | | | | | | [address] | | | | | | | | +--------+---------+ + + + documented as of this encounter Visit Diagnoses Not on filedocumented in this encounter"
--- OUTSIDE RECORDS SUMMARY | ~2020-02-05 | XMS | Encounter Summary ---
Demographics + + + | Address | [address] | | | [place] [address] | + + + | Home Phone | | + + + | Preferred Language | Unknown | + + + | Marital Status | | + + + | Advent Affiliation | 1077 | + + + | Race | Unknown | + + + | Ethnic Group | Unknown | + + + Author + + + | Author | [facility] | | | and [place] | + + + | Organization | [facility] | | | and [place] | + [...] [place] | | | | | [address] | | + + + + + | Arin Ulloa | ECON | Unknown | | + + + + + Care Team Providers + +------+ + | Care Residential Leasing Manager Name | Role | Phone | + +------+ + | Fabricio Bah | PCP | | | MD | | | + +------+ + Encounter Details +--------+ + + + + | Date | Type | Department | Care Team | Description | +--------+ + + + + | 10/06/ | Orders Only | [facility] | Andrade Hobbs, | | | 2019 | | CARDIOLOGY CARMEN | [address] | | | | | [address] | [place], [place] | | | | | [place], [place] | [address] | | | | | [address] | | | | | | [phone] | | | +--------+ + + + [...] | | | | | [place] [address] | | | | | | [phone] | | | | | | | | +--------+---------+ + + + | 04/05/ | Office | Cardiology | Andrade Hobbs | | | 2019 | Visit | | MD Curtis ESPARZA | | | | | | [place] | | | | | | [address] | | | | | | | | +--------+---------+ + + + documented as of this encounter Visit Diagnoses Not on filedocumented in this encounter"
--- OUTSIDE RECORDS SUMMARY | ~2020-02-05 | XMS | Encounter Summary ---
Demographics + + + | Address | [address] | | | [place] [address] | + + + | Home Phone | | + + + | Preferred Language | Unknown | + + + | Marital Status | | + + + | Confucianism Affiliation | 1077 | + + + | Race | Unknown | + + + | Ethnic Group | Unknown | + + + Author + + + | Author | [facility] | | | and [place] | + + + | Organization | [facility] | | [...] [place] | | | | | [address] | | + + + + + | Arin Ulloa | ECON | Unknown | | + + + + + Care Team Providers + +------+ + | Care Barrel Brander Name | Role | Phone | + +------+ + | Fabricio Bah | PCP | | | MD | | | + +------+ + Reason for Visit + + + | Reason | Comments | + + + | Follow-up | | + + + Encounter Details +--------+---------+ + + + | Date | Type | Department | Care Team | Description | +--------+---------+ + + + | 08/04/ | Office | [facility] | DevinAndrade, | Stable angina (HCC) | | 2019 | Visit | CARDIOLOGY ROSANA | MD Curtis ESPARZA | (Primary Dx); | | | | [address] | [place], [place] | Chronic systolic | | | | [address] [place] [address] | [address] | heart failure (HCC); | | | | [place] | | Essential | | | | [address] | | hypertension; | | | | [phone] | | Coronary artery | | | | | | disease of bypass | | | | | | graft of [place] | | | | | | heart with stable | | | | | | angina pectoris | | | | | | (HCC) | +--------+---------+ + + + Social History + +-------+ [...] + + +---------+ + | Yes | | | Alcoholic | | | | | Drinks/day: | | | | | occasional use | + + +---------+ + + + [...] + + documented as of this encounter Last Filed Vital Signs + + + + + | Vital Sign | Reading | Time Taken | Comments | + + + + + | Blood Pressure | 116/62 | 08/04/2019 11:26 AM | | | | | PST | | + + + + + | Pulse | 55 | 08/04/2019 11:26 AM | | | | | PST | | + + + + + | Temperature | - | - | | + + + + + | Respiratory Rate | - | - | | + + + + + | Oxygen Saturation | 96% | 08/04/2019 11:26 AM | | | | | PST | | + + + + + | Inhaled Oxygen | - | - | | | Concentration | | | | + + + + + | Weight | 80.9 kg (178 lb 6.4 | 08/04/2019 11:26 AM | | | | oz) | PST | | + + + + + | Height | 177.8 cm (5' 10") | 08/04/2019 11:26 AM | | | | | PST | | + + + + + | Body Mass Index | 25.6 | 08/04/2019 11:26 AM | | | | | PST | | + + + + + documented in this encounter Progress Notes Andrade Garcia MD - 08/04/2019 11:30 AM PSTFormatting of this note might be different f rom the original. Date of visit: 08/04/2019 Primary Care Physician: Fabricio Bah MD CHIEF COMPLAINT: Chief Complaint Patient presents with Follow-up HISTORY OF PRESENT ILLNESS: Deep is 83 y.o. here for Complex past medical history. Previous coronary artery disease, CA BG, unstable angina. No recurrent episodes of angina. Previous encounter metoprolol succinate was decreased to 25 mg once daily. Isosorbide was increased to 60 mm in a.m. and 13 p.m. Weight has been stable. Limited activity level due to hip and lower back pain. Monitor his blood pressure at home and it has been controlled. Since prior encounter no further hospitalization. No further GI bleed. Restarted on benzodiazepine secondary to depression. Has been having increased fatigue lately. Last hospitalization in [facility] on 07 April 2018 secondary to non-ST elevation IN. L eft heart catheterization showed severe three-vessel coronary artery disease, patent RAM to LAD however severely diseased SVG to ramus intermedius with heavy thrombus burden. Given th e above patient was placed on Integrilin IV, unfortuantely developed acute GI blood loss and that was stopped. Patient had history of CABG and redo, no recent cardiology follow-up since he felt well unt il recently. Past medical history, SH, FH, and medications were reviewed in the chart. Medications: Outpatient Encounter Medications as of 08/04/2019 Medication Sig Dispense Refill aspirin 81 MG tablet Take 81 mg by mouth daily. citalopram (CELEXA) 20 mg tablet Take 20 mg by mouth Daily. clopidogrel (PLAVIX) 75 mg tablet Take 1 tablet by mouth daily. 90 tablet 3 Fish Oil 1000 MG delayed release capsule Take 1 g by mouth daily. isosorbide mononitrate 60 mg ER tablet Take 1.5 tablets by mouth Daily. 135 tablet 3 lisinopril (PRINIVIL, ZESTRIL) 10 mg tablet TAKE 1 TABLET DAILY 90 tablet 1 metoprolol succinate (TOPROL-XL) 25 mg 24 hr tablet Take 1 tablet by mouth Daily. 90 ta blet 3 nitroglycerin (NITROSTAT) 0.[address] 1 tablet under the tongue every 5 (fiv e) minutes as needed for Chest pain. 25 tablet 11 predniSONE (DELTASONE) 5 mg tablet TAKE 1 TABLET DAILY WITH BREAKFAST 90 tablet 1 sulfaSALAzine (AZULFIDINE) 500 mg tablet take 1 tablet by mouth twice a day 180 tablet 0 zolpidem (AMBIEN) 10 mg tablet Take 10 mg by mouth nightly as needed for Insomnia. No facility-administered encounter medications on file as of 08/04/2019. Allergies Allergies Allergen Reactions Adhesive & Tape Other (See Comments) Adhesives in tape. Skin very fragile. Pravastatin Other (See Comments) Myalgias, myositis REVIEW OF SYSTEMS: Constitutional: Positive for fatigue. No fever, chills, and rigors. No report of weight ch jackelin. HEENT: Negative for nosebleeds, ear discharge, nasal congestion or soar throat. Eyes: Impaired vision. Respiratory: Negative for cough, sputum production, hemoptysis, wheezing. Cardiovascular: as HPI. Gastrointestinal: Negative for nausea, vomiting, diarrhea, abdominal pain and blood in stoo l. Genitourinary: Negative for dysuria or hematuria. Musculoskeletal: arthritic pain, chronic back pain. Skin: Negative for rash. Neurological: Negative for dizziness. No numbness. No recent falls. No slurred speech. Hematological: No significant bruising. Psychiatric/Behavioral: No depression or anxiety. PHYSICAL EXAM Vital Signs: BP 116/62 | Pulse 55 | Ht 1.778 m (5' 10") | Wt 80.9 kg (178 lb 6.4 oz) | SpO2 96% | B IN 25.60 kg/m GENERAL APPEARANCE: Alert, oriented, cooperative, no distress, appears stated age. HEENT: Extraocular movements were intact. No jaundice. Pupiles round and reactive. NECK: No JVD, lymphadenopathy. Carotid upstrokes normal. No carotid bruit heard. CARDIAC: Regular rhythm and rate. There is normal S1 and S2. No galop. No murmur. CHEST: Normal bilateral symmetrical chest excursion.ackles or wheezing. No evidence of dull ness. ABDOMEN: Soft.No tenderness or guarding. No palpable organs. Active bowel sounds. EXTREMITIES: Thickened ecchymosis and discoloration bilateral arms. NEURO: Alert and oriented times three with no focal deficit. Cranial nerves are grossly no rmal. SKIN: Warm and dry. No rash. Psych: Normal affect and mood. DATA Lab Results Component Value Date/Time NA 142 08/02/2019 14:17 NA 141 12/28/2018 13:13 NA 141 10/15/2018 13:45 K 4.4 08/02/2019 14:17 K 4.4 12/28/2018 13:13 K 4.8 10/15/2018 13:45 CO2 32 08/02/2019 14:17 CO2 33 (H) 12/28/2018 13:13 CO2 27 10/15/2018 13:45 BUN 25 08/02/2019 14:17 BUN 24 12/28/2018 13:13 BUN 25 (A) 10/15/2018 13:45 LABCREA 1.1 12/28/2018 13:13 LABCREA 1.14 (A) 10/15/2018 13:45 LABCREA 1.1 07/29/2018 13:08 CALCIUM 8.7 08/02/2019 14:17 CALCIUM 9.1 12/28/2018 13:13 CALCIUM 9.5 10/15/2018 13:45 CALCIUM 8.9 07/29/2018 13:08 MG 2.3 04/13/2018 04:01 MG 2.1 04/12/2018 04:26 MG 2.2 04/11/2018 04:18 Lab Results Component Value Date/Time WBC 8.66 08/02/2019 14:17 WBC 9.13 12/28/2018 13:13 WBC 9.5 10/15/2018 13:45 WBC 9.67 07/29/2018 13:08 HGB 14.3 08/02/2019 14:17 HGB 13.9 12/28/2018 13:13 HGB 15.0 10/15/2018 13:45 HGB 14.0 07/29/2018 13:08 HCT 41.9 08/02/2019 14:17 MCV 98.0 08/02/2019 14:17 MCV 95.9 12/28/2018 13:13 MCV 97.3 10/15/2018 13:45 MCV 94.3 07/29/2018 13:08 Lab Results Component Value Date GLUF 152 (H) 12/28/2018 GLUF 106 (A) 10/15/2018 EC06/09/2019 Ordered and reviewed by myself showed sinus bradycardia with long first-degree AV block, AR interval of almost 400 ms. Last Echo: 04/08/2018 1. This was a technically difficult study with suboptimal views. 2. Overall left ventricular systolic function is low-normal with, an EF between 50 - 55 %. 3. Wall motion abnormalities suggestive of CAD noted, posterior-lateral wall hypokinesis no andrae. Last Stress test: Last Cath: 04/08/2018 LM mild LAD severe proximal 75-89%, 70% mid, 80% D1. Patent RAM to LAD Ramus 100% ostium. 99% distal SVG to Ramus with long segment of high clot burden extending to Ramus post anastomosis. 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 Severe 3 vessel Coronary artery disease with CROSSBAR SWITCH ADJUSTER of RCA. CROSSBAR SWITCH ADJUSTER of RI. Patent RAM to LAD. Severe stenosis of the large SVG to RI with high clot burden. Known occluded SVG to RCA and OM. Last US carotid: Holter monitor 08/31/2018: 1. 4 hour Holter monitor, total of 90% diagnostic data, 82,801 beats recorded. 2. Patient was predominantly in sinus bradycardia. Total burden of bradycardia 61.35%. 3. Average heart rate was 56 bpm, minimal heart rate 45 bpm and maximal heart rate is 90 bp m. 4. Arrhythmia was noted as occasional premature ventricular contractions with total burden of 4.6%. Assessment: Patient is 83 y.o. with the following medical problems: 1. Severe coronary artery disease, as mentioned above. Stable anginal symptoms. 2. Chronic fatigue. 3. Hypertension. 4. History of GIB with no reoccurrence. Hemoglobin level are stable. 5. Dyslipidemia. 6. Mild ischemic cardiomyopathy. 7. Premature ventricular contractions with total burden of 4.6%. Plan: No further episodes of angina. Blood pressure trolled. Reviewed EKG that showed long first-degree AV block. New with metoprolol dose to 25 mg p.o. daily. Continue lisinopril 10 mg p.o. daily. 10 you with isosorbide mononitrate to 90 mg p.o. daily, can take 60 in the morning and 30 i n afternoon if needed. No evidence of volume overload. Tolerating antiplatelet therapy with clopidogrel and aspirin. May need eye surgery, mild risk, can proceed with above procedure with acceptable risk. Clopidogrel can be held 5 to 7 days prior to surgery. Follow-up in 3 to 4 months or sooner if needed. *This report has been prepared using a voice recognition system. The report was reviewed fo r accuracy, however, sound-alike word errors, addition and/or deletions may occur. If there is any question about this report please contact me. Andrade Garcia MD, MPH P M PSTdocumented in this encounter Plan of Treatment +--------+---------+ + + + | Date | Type | Specialty | Care Team | Description | +--------+---------+ + + + | 03/20/ | Office | Rheumatology | Roxi, | | 2019 | Visit | | Tiff Reina [facility] [address] | | | | | | [address] | | | | | | [place] [address] | | | | | | [phone] | | | | | | | | +--------+---------+ + + + | 04/05/ | Office | Cardiology | Andrade Garcia, | | 2019 | Visit | | MD Curtis ESPARZA | | | | | | [place] | | | | | | [address] | | | | | | | | +--------+---------+ + + + documented as of this encounter Visit Diagnoses + + | Diagnosis | + + | Stable angina (HCC) - Primary Other and unspecified angina pectoris | + + | Chronic systolic heart failure (HCC) Chronic systolic heart failure | + + | Essential hypertension Unspecified essential hypertension | + + | Coronary artery disease of bypass graft of [place] heart with stable angina pectoris | | (HCC) | + + documented in this encounter
--- OUTSIDE RECORDS SUMMARY | ~2020-02-05 | XMS | Encounter Summary ---
Demographics + + + | Address | [address] | | | [place] [address] | + + + | Home Phone | | + + + | Preferred Language | Unknown | + + + | Marital Status | | + + + | Caodaism Affiliation | 1077 | + + + | Race | Unknown | + + + | Ethnic Group | Unknown | + + + Author + + + | Author | [facility] | | | and [place] | + + + | Organization | [facility] | | | [...] [place] | | | | | [address] | | + + + + + | Arin Ulloa | ECON | Unknown | | + + + + + Care Team Providers + +------+ + | Care Sharepoint Administrator Name | Role | Phone | + [...] Description | +--------+--------+ + + + | 12/09/ | Refill | [facility] | Schiefelbein, | Medication Refill | | 2020 | | RHEUMATOLOGY [address] | Tiff Reina, [facility] [address] | | | | | [address] | [address] | | | | | [place], [place] | [place] [address] | | | | | [address] | [phone] | | | | | [phone] | | | +--------+--------+ + + + [...] +---------+ + | Yes | | | Occasional | + + +---------+ + [...] [address] | | | | | | [address] | | | | | | [place] [address] | | | | | | [phone] | | | | | | | | +--------+---------+ + + + | 04/05/ | Office | Cardiology | Andrade Hobbs, | | | 2019 | Visit | | MD Curtis ESPARZA | | | | | | [facility] [place] | | | | | | [address] | | | | | | | | +--------+---------+ + + + documented as of this encounter Visit Diagnoses + + | Diagnosis | + + | Rheumatoid arthritis of multiple sites with negative rheumatoid factor (HCC) | + + documented in this encounter"
--- OUTSIDE RECORDS SUMMARY | ~2020-02-05 | XMS | Encounter Summary ---
Demographics + + + | Address | [address] | | | [place] [address] | + + + | Home Phone | | + + + | Preferred Language | Unknown | + + + | Marital Status | | + + + | Shinto Affiliation | 1077 | + + + [...] [place] | | | | | [address] | | + + + + + | Arin Ulloa | ECON | Unknown | | + + + + + Care Team Providers + +------+ + | Care Concrete Sculptor Name | Role | Phone | + +------+ + | Fabricio Bah | PCP | | | MD | | | + +------+ + Encounter Details +--------+ + + + + | Date | Type | Department | Care Team | Description | +--------+ + + + + | 12/30/ | Orders Only | [facility] | Conversion | | | 2019 | | CONVERSION DEP [address] | Transaction, | | | | | [address] | Provider Unknown | | | | | [facility] | [phone] | | | | | [address] | | | | | | [phone] | | | +--------+ + + + [...] | | | | | [place] [address] | | | | | | [phone] | | | | | | | | +--------+---------+ + + + | 04/05/ | Office | Cardiology | Andrade Hobbs, | | | 2019 | Visit | | MD Curtis ESPARZA | | | | | | [place] | | | | | | [address] | | | | | | | | +--------+---------+ + + + documented as of this encounter Visit Diagnoses Not on filedocumented in this encounter"
--- OUTSIDE RECORDS SUMMARY | ~2020-02-05 | XMS | Encounter Summary ---
Demographics + + + | Address | [address] | | | [place] [address] | + + + | Home Phone | | + + + | Preferred Language | Unknown | + + + | Marital Status | | + + + | Sikhism Affiliation | 1077 | + + + | Race | Unknown | + + + | Ethnic Group | Unknown | + + + Author + + + | Author | [facility] | | | and [place] | + + + | Organization | [facility] | | | and [...] [place] | | | | | [address] | | + + + + + | Arin Ulloa | ECON | Unknown | | + + + + + Care Team Providers + +------+ + | Care Environmental Health And Safety Manager Name | Role | Phone | + +------+ + PCP | Unavailable | + +------+ + Encounter Details +--------+ + + + + | Date | Type | Department | Care Team | Description | +--------+ + + + + | 03/12/ | Hospital | [facility] | Romero Ferguson | | | 2001 - | Encounter | [facility] | [address] [place] | | | | | CARDIAC TELEMETRY | [address] [place], [place] | | | 03/18/ | | [address] | [address] | | | 2001 | | [place], [place] | | | | | | [address] | | | | | | [phone] | | | +--------+ + + + [...] | | | | | [place] [address] | | | | | | [phone] | | | | | | | | +--------+---------+ + + + | 04/05/ | Office | Cardiology | Andrade Hobbs, | | | 2019 | Visit | | MD Curtis ESPARZA | | | | | | [place] | | | | | | [id number] | | | | | | | | +--------+---------+ + + + documented as of this encounter Visit Diagnoses Not on filedocumented in this encounter"
--- OUTSIDE RECORDS SUMMARY | ~2020-02-05 | XMS | Encounter Summary ---
Demographics + + + | Address | [address] | | | [place] [address] | + + + | Home Phone | | + + + | Preferred Language | Unknown | + + + | Marital Status | | + + + | Rastafari Affiliation | 1077 | + + + | Race | Unknown | + + + | Ethnic Group | Unknown | + + + Author + + + | Author | [facility] | | | and [place] | + + + | Organization | [facility] | | | [...] [place] | | | | | [address] | | + + + + + | Arin Ulloa | ECON | Unknown | | + + + + + Care Team Providers + +------+ + | Care Director Of Group Counseling Program Name | Role | Phone | + +------+ + | Fabricio Bah | PCP | | | MD | | | + +------+ + Encounter Details +--------+ + + + + | Date | Type | Department | Care Team | Description | +--------+ + + + + | 03/25/ | Orders Only | [facility] | Conversion | | | 2016 | | CONVERSION DEP [address] | Transaction, | | | | | [address] | Provider Unknown | | | | | [address] | [phone] | | | | | [address] | | | | | | [phone] | | | +--------+ + + + [...] | | | | | [place] [address] | | | | | | [phone] | | | | | | | | +--------+---------+ + + + | 04/05/ | Office | Cardiology | Andrade Hobbs, | | | 2019 | Visit | | MD Curtis ESPARZA | | | | | | [place] | | | | | | [address] | | | | | | | | +--------+---------+ + + + documented as of this encounter Visit Diagnoses Not on filedocumented in this encounter"
--- OUTSIDE RECORDS SUMMARY | ~2020-02-05 | XMS | Encounter Summary ---
Demographics + + + | Address | [address] | | | [place] [address] | + + + | Home Phone | | + + + | Preferred Language | Unknown | + + + | Marital Status | | + + + | Orthodox Affiliation | 1077 | + + + [...] [place] | | | | | [address] | | + + + + + | Arin Ulloa | ECON | Unknown | | + + + + + Care Team Providers + +------+ + | Care Ship Boss Name | Role | Phone | + +------+ + PCP | Unavailable | + +------+ + Encounter Details +--------+ + + + + | Date | Type | Department | Care Team | Description | +--------+ + + + + | 03/01/ | Hospital | [facility] | Derrek Darnell | | | 2001 - | Encounter | [place] [address] | MD Zack Cusseta | | | | | [facility] | [facility] | | | 03/02/ | | [place], [place] | [address] | | | 2001 | | [address] | [address] [place], [place] | | | | | [phone] | [address] | | | | | | | | | | | | Tom Douglas MD | | | | | | [address] [facility] | | | | | | [place] [address] | | | | | | [phone] | | | | | | | [...] | | | | | [place] [address] | | | | | | [phone] | | | | | | | | +--------+---------+ + + + | 04/05/ | Office | Cardiology | Andrade Hobbs, | | | 2019 | Visit | | MD Curtis ESPARZA | | | | | | [place] | | | | | | [id number] | | | | | | | | +--------+---------+ + + + documented as of this encounter Visit Diagnoses Not on filedocumented in this encounter"
--- OUTSIDE RECORDS SUMMARY | ~2020-02-05 | XMS | Encounter Summary ---
Demographics + + + | Address | [address] | | | [place] [address] | + + + | Home Phone | | + + + | Preferred Language | Unknown | + + + | Marital Status | | + + + | Zoroastrianism Affiliation | 1077 | + + + | Race | Unknown | + + + | Ethnic Group | Unknown | + + + Author + + + | Author | [facility] | | | and [place] | + + + | Organization | [facility] | | | [...] [place] | | | | | [address] | | + + + + + | Arin Ulloa | ECON | Unknown | | + + + + + Care Team Providers + +------+ + | Care Operations Research Engineer Name | Role | Phone | + +------+ + | Fabricio Bah | PCP | | | MD | | | + +------+ + Encounter Details +--------+ + + + + | Date | Type | Department | Care Team | Description | +--------+ + + + + | 10/14/ | Orders Only | [facility] | Andrade Hobbs, | | | 2019 | | CARDIOLOGY CARMEN | [address] | | | | | [address] | [place], [place] | | | | | [place], [place] | [address] | | | | | [address] | | | | | | [phone] | | | +--------+ + + + [...] | | | | | [place] [address] | | | | | | [phone] | | | | | | | | +--------+---------+ + + + | 04/05/ | Office | Cardiology | Andrade Hobbs | | | 2019 | Visit | | MD Curtis ESPARZA | | | | | | [place] | | | | | | [address] | | | | | | | | +--------+---------+ + + + documented as of this encounter Visit Diagnoses Not on filedocumented in this encounter"
--- OUTSIDE RECORDS SUMMARY | ~2020-02-05 | XMS | Encounter Summary ---
Demographics + + + | Address | [address] | | | [place] [address] | + + + | Home Phone | | + + + | Preferred Language | Unknown | + + + | Marital Status | | + + + | Confucianist Affiliation | 1077 | + + + | Race | Unknown | + + + | Ethnic Group | Unknown | + + + Author + + + | Author | [facility] | | | and [place] | + + + | Organization | [facility] | | | [...] [place] | | | | | [address] | | + + + + + | Arin Ulloa | ECON | Unknown | | + + + + + Care Team Providers + +------+ + | Care Bar Manager Name | Role | Phone | + +------+ + PCP | Unavailable | + +------+ + Encounter Details +--------+ + + + + | Date | Type | Department | Care Team | Description | +--------+ + + + + | 04/16/ | Hospital | [facility] | Sathish Appiah S | | | 1999 | Encounter | [facility] | MD | | | | | ULTRASOUND [address] | | | | | | [address] [place] | | | | | | [address] | | | | | | [phone] | | | +--------+ + + + [...] | | | | | [place] [address] | | | | | | [phone] | | | | | | | | +--------+---------+ + + + | 04/05/ | Office | Cardiology | Andrade Hobbs, | | | 2019 | Visit | | MD Curtis ESPARZA | | | | | | [place] | | | | | | [phone] | | | | | | | | +--------+---------+ + + + documented as of this encounter Visit Diagnoses Not on filedocumented in this encounter"
--- OUTSIDE RECORDS SUMMARY | ~2020-02-05 | XMS | Encounter Summary ---
Demographics + + + | Address | [address] | | | [place] [address] | + + + | Home Phone | | + + + | Preferred Language | Unknown | + + + | Marital Status | | + + + | Sabianist Affiliation | 1077 | + + + | Race | Unknown | + + + | Ethnic Group | Unknown | + + + Author + + + | Author | [facility] | | | and [place] | + + + | Organization | [facility] | | | [...] [place] | | | | | [address] | | + + + + + | Arin Ulloa | ECON | Unknown | | + + + + + Care Team Providers + +------+ + | Care Oil Tank Car Cleaner Name | Role | Phone | + +------+ + | Fabricio Bah | PCP | | | MD | | | + +------+ + Encounter Details +--------+ + + + + | Date | Type | Department | Care Team | Description | +--------+ + + + + | 08/06/ | Hospital | [facility] | Esequiel Spencer | | | 2019 | Encounter | MED CTR OR INTRA OP | MD [address] | | | | | [address] | [place] | | | | | [place] | [place] [address] | | | | | [address] | [phone] | | | | | [phone] | | | +--------+ + + + [...] + + + | Blood Pressure | 123/64 | 08/06/2019 4:00 PM | | | | | PST | | + + + + + | Pulse | 52 | 08/06/2019 4:00 PM | | | | | PST [...] + + + | Oxygen Saturation | 97% | 08/06/2019 4:00 PM | | | | | PST | | + + + + + | Inhaled Oxygen | - | - | | | Concentration | | | | + + + + + | Weight | 80.1 kg (176 lb 9.4 | 08/06/2019 11:30 AM | | | | oz) | PST | | + + + + + | Height | 177.8 cm (5' 10") | 08/06/2019 11:30 AM | | | | | PST | | + + + + + | Body Mass Index | 25.34 | 08/06/2019 11:30 AM | | | | | PST | | + + + + + documented in this encounter Discharge Instructions Instructions Fabricio Velasquez RN - 08/06/2019FOLLOWING SURGERY: Wear the patch and shield until you get home or until your first post-op appointment, if same day. You may then discard the patch, but continue to wear the eye shield as noted sam sky Do not drive for at least 24 hours (longer if vision isn't clear enough to be safe) If prescribed the following eyedrops to use after surgery, then use as follows: Prednisolone acetate 1% - Shake well before using. Place 1 drop in your surgery ey e 4 times daily and continue for 1 month after surgery. Ofloxacin 0.3% - Place 1 drop in your surgery eye 4 times daily and continue for 1 week after surgery. Close your eye for 3-5 minutes after each eye drop. If your surgery eye has a dry, irritated, or "foreign body" sensation, you may use cold compresses or preservative free artificial tears (in individual vials) as needed. Drink water to stay well-hydrated and to promote healing. Most people need 8 glasses of water daily. Use your preferred non-prescription pain medicine as needed for mild discomfort. You will have appointments with your eye doctor as scheduled in future weeks/months. Marilin ng any eye drops you are taking to your first post-op appointment. THE FIRST DAYS AFTER SURGERY: The first few days are the most important after eye surgery t o be sure the eye heals well. Listed below are some things you should do or avoid doing: You may bend over, sleep on either side, read, go out to dinner, and resume most of your normal activities. Walking and gentle exercises are OK. Avoid strenuous activity for the first 3 days. Keep your eye clean with gentle lid scrubs and avoid wearing makeup for 3 days. Wear the eye shield for the first 3-4 nights to keep from bumping the eye while you are sleeping. Do not rub your eye. If you have an urge to rub your eye, wear the eye shield and carito nue using it when sleeping for even the first week after surgery. Avoid dry, aracelis or dirty environments for at least 3 days. You may shower, but keep you eye dry for 3 days. Avoid dunking your head under water. Avoid splashing your face or dunking your head under water for 3 days. You may shower, k eeping your eye dry. No swimming, water sports, Jacuzzi, spa, or pool for 1 week. EXPECTATIONS: You may experience strange sensations after surgery, such as numbness, halos around lights, blurred and/or double vision. These usually resolve in 2-6 hours. Your visi on will improve over time as your eye heals, but may fluctuate over the first few weeks. Re dness will usually be gone within a few weeks. A mild dry eye sensation may persist for thomas e months. IMPORTANT! If you have the following symptoms, immediately call your eye doctor or [facility] at (dial "9" after hours or on weekends): Bleeding or discharge from the eye. Vision suddenly becomes worse. Huge increase in floaters. Flashing lights or a curtain over part of or all of your vision. Severe pain not relieved by the pain reliever you've been instructed to take. Nausea, vomiting, chills, or fever over 100.4. documented in this encounter Medications at Time of Discharge + [...] | daily. | | | 16 | | + + + +---------+ + + | citalopram | Take 20 mg by mouth | | 0 | | | | (CELEXA) 20 mg | Daily. | | | | | | tablet | | | | | | + + + +---------+ + + | Fish Oil 1000 MG | Take 1 g by mouth | | 0 | 12/31/19 | | | delayed release | daily. | | | 19 | | | capsule | | | | | | + + + +---------+ + + | metoprolol | Take 1 tablet by | 90 | 3 | 07/26/20 | | | succinate | mouth Daily. | tablet | | 19 | 0 | | (TOPROL-XL) 25 mg 24 | | | | | | | hr tablet | | | | | | + + + +---------+ + + | nepafenac (ILEVRO) | Place 1 drop into | | 0 | | | | 0.3% ophthalmic | the right eye Daily. | | | | | | suspension | | | | | | + + + +---------+ + + | timolol maleate | Place 1 drop into | | 0 | | | | (TIMOPTIC) 0.5% | the right eye Daily. | | | | | | ophthalmic solution | | | | | | + + + +---------+ + + | zolpidem (AMBIEN) | Take 10 mg by mouth | | 0 | | | | 10 mg tablet | nightly as needed | | | | | | | for Insomnia. | | | | | + + + +---------+ + + | clopidogrel | Take 1 tablet by | 90 | 3 | 10/28/19 | | | (PLAVIX) 75 mg | mouth daily. | tablet | | 19 | 0 | | tablet | | | | | | + + + +---------+ + + | isosorbide | Take 1.5 tablets by | 135 | 3 | 07/20/20 | | | mononitrate 60 mg ER | mouth Daily. | tablet | | 19 | 0 | | tablet | | | | | | + + + +---------+ + + | latanoprost | Place 1 drop into | | 0 | | | | (XALATAN) 0.005% | the right eye | | | | 0 | | ophthalmic solution | nightly. | | | | | + + + +---------+ + + | lisinopril | TAKE 1 TABLET DAILY | 90 | 1 | 05/08/20 | | | (PRINIVIL, ZESTRIL) | | tablet | | 19 | 0 | | 10 mg tablet | | | | | | + + + +---------+ + + | nitroglycerin | Place 1 tablet under | 25 | 11 | 12/31/19 | | | (NITROSTAT) 0.4 mg | the tongue every 5 | tablet | | 19 | 0 | | SL tablet | (five) minutes as | | | | | | | needed for Chest | | | | | | | pain. | | | | | + + + +---------+ + + | predniSONE | TAKE 1 TABLET DAILY | 90 | 1 | 04/13/20 | | | (DELTASONE) 5 mg | WITH BREAKFAST | tablet | | 19 | 0 | | tablet | | | | | | + + + +---------+ + + | sulfaSALAzine | take 1 tablet by | 180 | 0 | 06/28/20 | | | (AZULFIDINE) 500 mg | mouth twice a day | tablet | | 19 | 9 | | tablet | | [...] | | | | | | [place] [address] | | | | | | [phone] | | | | | | | | +--------+---------+ + + + | 04/05/ | Office | Cardiology | Andrade Hobbs, | | | 2019 | Visit | | MD Curtis ESPARZA | | | | | | [place] | | | | | | [address] | | | | | | | | +--------+---------+ + + + documented as of this encounter Procedures + +--------+ + + + | Procedure Name | Priori | Date/Time | Associated Diagnosis | Comments | | | ty | | | | + +--------+ + + + | EXCHANGE IOL | | 08/06/2019 | Displacement of | | | | | 1:10 PM | intraocular lens, | | | | | PST | subsequent encounter | | + +--------+ + + + +---+--------+ | | | | | Specia | | | l | | | Needs | | | | | | Specia | | | l Lens | +---+--------+ documented in this encounter Visit Diagnoses + + | Diagnosis | + + | Rheumatoid arthritis (HCC) | + + | HTN (hypertension) Unspecified essential hypertension | + + | Chronic systolic heart failure (HCC) Chronic systolic heart failure | + + | Chews tobacco Tobacco use disorder | + + | AMANDEEP Inhibitors - Daily Use | + + | Hyperlipidemia, mixed Mixed hyperlipidemia | + + | Chronic renal insufficiency, stage 2 (mild) | + + documented in this encounter Administered Medications + +--------+---------+------+------+------+ | Medication Order | MAR | Action | Dose | Rate | Site | | | Action | Date | | | | + +--------+---------+------+------+------+ + +---+ | acetaminophen (TYLENOL) tablet | | | 325-650 mg 325-650 mg, Oral, | | | EVERY 4 HOURS PRN, Pain, Starting | | | Fri08/06/19 at 1554, | | | Post-op/Phase II | | + +---+ | | | + +---+ | albuterol 2.5 mg/3 mL nebulizer | | | solution 2.5 mg 2.5 mg, | | | Nebulization, ONCE PRN, Wheezing, | | | Starting Fri08/06/19 at 1130, | | | For 1 dose, RT will administer., | | | Pre-op | | + +---+ | | | + +---+ | albuterol 2.5 mg/3 mL nebulizer | | | solution 2.5 mg 2.5 mg, | | | Nebulization, ONCE PRN, Wheezing, | | | Starting Fri08/06/19 at 1502, | | | For 1 dose, Notify anesthesia if | | | patient is wheezing and does not | | | have a history of asthma or COPD | | | or current smoking., | | | Recovery/Phase I | | + +---+ | | | + +---+ | albuterol-ipratropium 2.5-0.5 | | | mg/3 mL nebulizer solution 3 mL | | | 3 mL, Nebulization, ONCE PRN, | | | Wheezing, Starting Fri08/06/19 at | | | 1130, For 1 dose, Pre-op | | + +---+ | | | + +---+ | albuterol-ipratropium 2.5-0.5 | | | mg/3 mL nebulizer solution 3 mL | | | 3 mL, Nebulization, ONCE PRN, | | | Wheezing, Shortness of Breath, | | | Starting Fri08/06/19 at 1502, For | | | 1 dose, Recovery/Phase I | | + +---+ | | | + +---+ | dextrose 50% injection 12.5-25 | | | g 12.5-25 g, Intravenous, EVERY | | | 15 MIN PRN, Low Blood Sugar, Give | | | 12.5g (25 mL) IV if blood | | | glucose 50-69 mg/dL. Give 25g | | | (50 mL) IV if blood glucose < 50, | | | Starting Fri08/06/19 at 1130, | | | Repeat in 15 min if blood glucose | | | remains < 70 mg/dL. Repeat | | | blood glucose in 30 min once | | | blood glucose > 70., Pre-op | | + +---+ | | | + +---+ | dextrose 50% injection 12.5-25 | | | g 12.5-25 g, Intravenous, EVERY | | | 15 MIN PRN, Low Blood Sugar, For | | | hypoglycemia. Give 12.5g (25ml) | | | IV if blood glucose 50-69 | | | mg/dL. Give 25g (50ml) IV if | | | blood glucose < 50, Starting Fri | | | 08/06/19 at 1502, Give over 2 min. | | | Repeat in 15 min if blood | | | glucose remains < 70 mg/dL. | | | Repeat blood glucose in 30 min | | | once blood glucose > 70., | | | Recovery/Phase I | | + +---+ | | | + +---+ | ePHEDrine (AKOVAZ) 50 mg/mL | | | injection 5 mg 5 mg, | | | Intravenous, EVERY 5 MIN PRN, if | | | SBP <90., Starting Fri08/06/19 at | | | 1502, Hold if HR > 100. Maximum | | | total dose 20mg., Recovery/Phase | | | I | | + +---+ | | | + +---+ | fentaNYL (PF) injection 25-50 | | | mcg 25-50 mcg, Intravenous, | | | EVERY 5 MIN PRN, Pain, Initial | | | postop urgent pain or escalating | | | pain, Starting Fri08/06/19 at | | | 1502, For 4 doses, Every 5 | | | minutes PRN for initial postop | | | urgent pain or escalating pain up | | | to 2 doses maximum. If patient | | | meets opioid tolerant definition, | | | can give up to 4 doses maximum. | | | First dose must be lowest dose. | | | Use Pasero Sedation Scale. | | | [Opioid tolerant = One week or | | | longer, jyivda-gos-igiud use of | | | at least the following DAILY | | | dose: 60mg oral morphine, 60mg | | | oral hydrocodone, 30mg oral | | | oxycodone, 8mg oral | | | hydromorphone, fentanyl patch | | | 25mcg/hr, or equivalent dose of | | | another opioid], Recovery/Phase I | | + +---+ | | | + +---+ | hydrALAZINE (APRESOLINE) | | | injection 5 mg 5 mg, | | | Intravenous, EVERY 20 MINUTES | | | PRN, For SBP > 180, DBP > 100, | | | Starting Fri08/06/19 at 1502, | | | Hold if HR > 100. Maximum total | | | dose 40 mg. Use labetalol first | | | if available., Recovery/Phase I | | + +---+ | | | + +---+ | HYDROmorphone (DILAUDID) | | | injection 0.2-0.6 mg 0.2-0.6 mg, | | | Intravenous, EVERY 5 MIN PRN, | | | Pain, Starting Fri08/06/19 at | | | 1502, First dose must be lowest | | | dose, can increase subsequent | | | doses by 0.2mg within dosing | | | range. If patient meets opioid | | | tolerant definition, can start | | | with 0.4mg dose. [Maximum total | | | PACU dose 4mg] Use Pasero | | | Sedation Scale. [Opioid tolerant | | | = One week or longer, | | | qahtyk-tcy-xllyo use of at least | | | the following DAILY dose: 60mg | | | oral morphine, 60mg oral | | | hydrocodone, 30mg oral oxycodone, | | | 8mg oral hydromorphone, fentanyl | | | patch 25mcg/hr, or equivalent | | | dose of another opioid], | | | Recovery/Phase I | | + +---+ | | | + +---+ | labetalol (TRANDATE) 5 mg/mL | | | injection 5 mg 5 mg, | | | Intravenous, EVERY 5 MIN PRN, For | | | SBP > 180, DBP > 100, Starting | | | Fri08/06/19 at 1502, Hold if HR < | | | 60. Maximum total dose 300mg. | | | Notify anesthesia if patient | | | requires more than 50mg., | | | Recovery/Phase I | | + +---+ | | | + +---+ + +---------+ +---+-------+---+ | lactated ringers (LR) infusion | New Bag | 08/06/20 | | 100 | | | at 10-100 mL/hr, Intravenous, | | 19 12:00 | | mL/hr | | | CONTINUOUS, Starting Fri08/06/19 | | PM PST | | | | | at 1200, TKO., Pre-op | | | | | | + +---------+ +---+-------+---+ +---+---+ | | | +---+---+ + +-------+ +--------+---+---+ | lidocaine (AKTEN) 3.5% | Given | 08/06/20 | 1 drop | | | | ophthalmic gel 1 drop 1 drop, | | 19 12:02 | | | | | Right Eye, Prior to Incision, | | PM PST | | | | | Starting Fri08/06/19 at 1130, For | | | | | | | 2 doses, Begin after | | | | | | | proparacaine. Begin 10 minutes | | | | | | | prior to leaving SDS for | | | | | | | operating room. Repeat jelly just | | | | | | | prior to leaving SDS and Q10 | | | | | | | minutes until in the operating | | | | | | | room. Keep eye closed after | | | | | | | placing medication., Pre-op | | | | | | + +-------+ +--------+---+---+ + +---+ | | | + +---+ | meperidine (DEMEROL) injection | | | 12.5-25 mg 12.5-25 mg, | | | Intravenous, PRN, Shivering, | | | Starting 08/06/19 at 1502, For | | | 2 doses, May Repeat once in 5 | | | min., Recovery/Phase I | | + +---+ | | | + +---+ | metoclopramide (REGLAN) 5 mg/mL | | | injection 10 mg 10 mg, | | | Intravenous, EVERY 6 HOURS PRN, | | | Nausea, Vomiting, Starting Fri | | | 08/06/19 at 1502, For 2 doses, | | | Protect from light., | | | Recovery/Phase I | | + +---+ | | | + +---+ | ondansetron (ZOFRAN) injection | | | 4 mg 4 mg, Intravenous, ONCE | | | PRN, Nausea, Starting Fri08/06/19 | | | at 1502, For 1 dose, | | | Recovery/Phase I | | + +---+ | | | + +---+ + +-------+ +--------+---+---+ | phenylephrine (LISS-SYNEPHRINE) | Given | 08/06/20 | 1 drop | | | | 2.5% ophthalmic solution 1 drop | | 19 12:02 | | | | | 1 drop, Right Eye, Prior to | | PM PST | | | | | Incision, Starting Fri08/06/19 at | | | | | | | 1130, For 3 doses, Begin after | | | | | | | proparacaine. 1 drop every 10 | | | | | | | minutes for 3 doses. (May | | | | | | | alternate every 5 minutes with | | | | | | | tropicamide) Remind patient to | | | | | | | keep eye closed after placing | | | | | | | each drop., Pre-op | | | | | | + +-------+ +--------+---+---+ +-------+ +--------+---+---+ | Given | 08/06/20 | 1 drop | | | | | 19 11:54 | | | | | | AM PST | | | | +-------+ +--------+---+---+ | Given | 08/06/20 | 1 drop | | | | | 19 11:47 | | | | | | AM PST | | | | +-------+ +--------+---+---+ + +---+ | | | + +---+ | promethazine (PHENERGAN) (IV | | | ONLY) injection 6.25 mg 6.25 mg, | | | Intravenous, EVERY 15 MIN PRN, | | | Nausea, Vomiting, Starting Fri | | | 08/06/19 at 1502, For 4 doses, | | | TAKE PRECAUTIONS WHEN | | | ADMINISTERING Dilute to 10-20mL | | | with NS. Give over 2-3 minutes | | | into large vein. Use ondansetron | | | first if both are ordered., | | | Recovery/Phase I | | + +---+ | | | + +---+ + +-------+ +--------+---+---+ | proparacaine (ALCAINE) 0.5% | Given | 08/06/20 | 1 drop | | | | ophthalmic solution 1 drop 1 | | 19 11:47 | | | | | drop, Right Eye, Prior to | | AM PST | | | | | Incision, Starting Fri08/06/19 at | | | | | | | 1130, For 1 dose, After placing | | | | | | | anesthetic, keep eye closed | | | | | | | except for when placing | | | | | | | additional medications. All other | | | | | | | drops/gel should follow this | | | | | | | drop., Pre-op | | | | | | + +-------+ +--------+---+---+ +---+---+ | | | +---+---+ + +-------+ +--------+---+---+ | tropicamide (MYDRIACYL) 1% | Given | 08/06/20 | 1 drop | | | | ophthalmic solution 1 drop 1 | | 19 12:02 | | | | | drop, Right Eye, Prior to | | PM PST | | | | | Incision, Starting Fri08/06/19 at | | | | | | | 1130, For 3 doses, Begin after | | | | | | | proparacaine. 1 drop every 10 | | | | | | | minutes for 3 doses. (May | | | | | | | alternate every 5 minutes with | | | | | | | phenylephrine) Remind patient to | | | | | | | keep eye closed after placing | | | | | | | each drop., Pre-op | | | | | | + +-------+ +--------+---+---+ +-------+ +--------+---+---+ | Given | 08/06/20 | 1 drop | | | | | 19 11:54 | | | | | | AM PST | | | | +-------+ +--------+---+---+ | Given | 08/06/20 | 1 drop | | | | | 19 11:47 | | | | | | AM PST | | | | +-------+ +--------+---+---+ +---+---+ | | | +---+---+ documented in this encounter
--- OUTSIDE RECORDS SUMMARY | ~2020-02-05 | XMS | Encounter Summary ---
Demographics + + + | Address | [address] | | | [place] [address] | + + + | Home Phone | | + + + | Preferred Language | Unknown | + + + | Marital Status | | + + + | Voodoo Affiliation | 1077 | + + + | Race | Unknown | + + + | Ethnic Group | Unknown | + + + Author + + + | Author | [facility] | | | and [place] | + + + | Organization | [facility] | | | and [...] [place] | | | | | [address] | | + + + + + | Arin Ulloa | ECON | Unknown | | + + + + + Care Team Providers + +------+ + | Care Chicken Buyer Name | Role | Phone | + [...] Description | +--------+--------+ + + + | 01/01/ | Refill | [facility] | Chasity Vanegas | Medication Refill | | 2020 | | CARDIOLOGY [facility] | MD Samina [address] | | | | | [address] | [place], [place] | | | | | [place], [place] | [address] | | | | | [address] | | | | | | [phone] | | | +--------+--------+ + + + [...] | | | | | [place] [address] | | | | | | [phone] | | | | | | | | +--------+---------+ + + + | 04/05/ | Office | Cardiology | Andrade Hobbs, | | | 2019 | Visit | | MD Curtis ESPARZA | | | | | | [place] | | | | | | [address] | | | | | | | | +--------+---------+ + + + documented as of this encounter Visit Diagnoses Not on filedocumented in this encounter"
--- OUTSIDE RECORDS SUMMARY | ~2020-02-05 | XMS | Encounter Summary ---
Demographics + + + | Address | [address] | | | [place] [address] | + + + | Home Phone | | + + + | Preferred Language | Unknown | + + + | Marital Status | | + + + | Orthodoxy Affiliation | 1077 | + + + | Race | Unknown | + + + | Ethnic Group | Unknown | + + + Author + + + | Author | [facility] | | | and [place] | + + + | Organization | [facility] | | [...] [place] | | | | | [address] | | + + + + + | Arin Ulloa | ECON | Unknown | | + + + + + Care Team Providers + +------+ + | Care Online Communications Manager Name | Role | Phone | + +------+ + PCP | Unavailable | + +------+ + Encounter Details +--------+ + + + + | Date | Type | Department | Care Team | Description | +--------+ + + + + | 07/17/ | Hospital | [facility] | Brad Cooper | | | 1998 | Encounter | [facility] | [place] [address] | | | | | [address] | [address] | | | | [address] [place], [place] | [place] [address] | | | | | [address] | [phone] | | | | | [phone] | | | +--------+ + + + [...] | | | | | [place] [address] | | | | | | [phone] | | | | | | | | +--------+---------+ + + + | 04/05/ | Office | Cardiology | Andrade Hobbs, | | | 2019 | Visit | | MD Curtis ESPARZA | | | | | | [place] | | | | | | [address] | | | | | | | | +--------+---------+ + + + documented as of this encounter Visit Diagnoses Not on filedocumented in this encounter"
--- OUTSIDE RECORDS SUMMARY | ~2020-02-05 | XMS | Encounter Summary ---
Demographics + + + | Address | [address] | | | [place] [address] | + + + | Home Phone | | + + + | Preferred Language | Unknown | + + + | Marital Status | | + + + | Hinduism Affiliation | 1077 | + + + | Race | Unknown | + + + | Ethnic Group | Unknown | + + + Author + + + | Author | [facility] | | | and [place] | + + + | Organization | [facility] | | | [...] [place] | | | | | [address] | | + + + + + | Arin Ulloa | ECON | Unknown | | + + + + + Care Team Providers + +------+ + | Care Band Master Name | Role | Phone | + +------+ + | Fabricio Bah | PCP | | | MD | | | + +------+ + Encounter Details +--------+ + + + + | Date | Type | Department | Care Team | Description | +--------+ + + + + | 03/25/ | Orders Only | [facility] | Roxi, | | | 2016 | | RHEUMATOLOGY [address] | [address] | | | | | [address] | [address] | | | | | [place], [place] | [place] [address] | | | | | [address] | [phone] | | | | | [phone] | | | +--------+ + + + [...] | | | | | [place] [address] | | | | | | [phone] | | | | | | | | +--------+---------+ + + + | 04/05/ | Office | Cardiology | Andrade Hobbs, | | | 2019 | Visit | | MD Curtis ESPARZA | | | | | | [place] | | | | | | [address] | | | | | | | | +--------+---------+ + + + documented as of this encounter Procedures + +--------+ + + + | Procedure Name | Priori | Date/Time | Associated Diagnosis | Comments | | | ty | | | | + +--------+ + + + | EXTERNAL LAB: CBC | Routin | 03/25/2016 | | Results for this | | | e | 12:29 PM | | procedure are in the | | | | PDT | | results section. | + +--------+ + + + | SEDIMENTATION RATE, | Routin | 03/25/2016 | | Results for this | | AUTOMATED | e | 12:29 PM | | procedure are in the | | | | PDT | | results section. | + +--------+ + + + | COMPREHENSIVE | Routin | 03/25/2016 | | Results for this | | METABOLIC PANEL | e | 12:29 PM | | procedure are in the | | | | PDT | | results section. | + +--------+ + + + documented in this encounter Results Sedimentation rate, automated (03/25/2016 12:29 PM PDT) + +-------+ + + + | Component | Value | Ref Range | Performed | Pathologist | | | | | At | Signature | + +-------+ + + + | Sed Rate | 6 | 0 - 20 mm/h | EXTERNAL | | | | | [...] + +---------+ + + External Lab: CBC (03/25/2016 12:29 PM PDT) + + + + + + | Component | Value | Ref Range | Performed | Pathologist | | | | | At | Signature | + + + + + + | WBC | 9.1 | 3.8 - 11.0 | EXTERNAL | | | | | 10*3/uL | LAB | | + + + + + + | Red Blood | 4.63 | 4.20 - 5.70 | EXTERNAL | | | Cells | | 10*6/uL | LAB | | | Counted | | | | | + + + + + + | Hemoglobin | 14.8 | 13.2 - 17.0 | EXTERNAL | | | | | g/dL | LAB | | + + + + + + | Hematocrit, | 43.5 | 39.0 - 50.0 % | EXTERNAL | | | POC | | | LAB | | + + + + + + | MCV | 94.0 | 80.0 - 100.0 fL | EXTERNAL | | | | | | LAB | | + + + + + + | MCH | 31.9 | 27.0 - 34.0 pg | EXTERNAL | | | | | | LAB | | + + + + + + | MCHC | 34.0 | 32.0 - 35.5 | EXTERNAL | | | | | g/dL | LAB | | + + + + + + | Platelet | 156 | 150 - 400 | EXTERNAL | | | Count | | 10*3/uL | LAB | | | Plasma | | | | | + + + + + + | MPV | 9.3 | fL | EXTERNAL | | | | | | LAB | | + + + + + + | Differentia | AUTOMATED | | EXTERNAL | | | l Type | | | LAB | | + + + + + + | % Segmented | 84.4 | | EXTERNAL | | | | | | LAB | | | Neutrophils | | | | | + + + + + + | % | 10.1 | % | EXTERNAL | | | Lymphocytes | | | LAB | | + + + + + + | % Monocytes | 4.2 | % | EXTERNAL | | | | | | LAB | | + + + + + + | % | 0.9 | % | EXTERNAL | | | Eosinophils | | | LAB | | + + + + + + | % Basophils | 0.4 | % | EXTERNAL | | | | | | LAB | | + + + + + + | Absolute | 7.7 (H) | 1.9 - 7.4 | EXTERNAL | | | Segmented | | 10*3/uL | LAB | | | Neutrophils | | | | | + + + + + + | Absolute | 0.9 (L) | 1.0 - 3.9 | EXTERNAL | | | Lymphocytes | | 10*3/uL | LAB | | + + + + + + | Absolute | 0.4 | 0.0 - 0.8 | EXTERNAL | | | Monocytes | | 10*3/uL | LAB | | + + + + + + | Absolute | 0.1 | 0.0 - 0.5 | EXTERNAL | [...] + +---------+ + + Comprehensive Metabolic Panel (03/25/2016 12:29 PM PDT) + + + + + + | Component | Value | Ref Range | Performed | Pathologist | | | | | At | Signature | + + + + + + | Na | 141Comment: NOTE NEW | 135 - 145 | EXTERNAL | | | | REFERENCE RANGE | mmol/L | LAB | | + + + + + + | K | 4.5 | 3.5 - 4.9 | EXTERNAL | | | | | mmol/L | LAB | | + + + + + + | Cl | 103 | 99 - 109 mmol/L | EXTERNAL | | | | | | LAB | | + + + + + + | CO2 | 29 | 23 - 32 mmol/L | EXTERNAL | | | | | | LAB | | + + + + + + | Anion Gap | 14 | 5 - 20 mmol/L | EXTERNAL | | | | | | LAB | | + + + + + + | Glucose, | 117 (H) | 65 - 99 mg/dL | EXTERNAL | | | Fasting | | | LAB | | + + + + + + | BUN | 28 (H) | 8 - 25 mg/dL | EXTERNAL | | | | | | LAB | | + + + + + + | Creatinine | 1.0 | 0.70 - 1.30 | EXTERNAL | | | | | mg/dL | LAB | | + + + + + + | BUN/Creatin | 28 | | EXTERNAL | | | ine [...] + + + + | Albumin | 4.1 | 3.3 - 4.8 g/dL | EXTERNAL | | | | | | LAB | | + + + + + + | Globulin | 1.9 | 1.3 - 4.9 g/dL | EXTERNAL | | | | | | LAB | | + + + + + + | A/G Ratio | 2.2 | 1.0 - 2.4 | EXTERNAL | | | | | | LAB | | + + + + + + | Bilirubin | 0.7 | 0.1 - 1.5 mg/dL | EXTERNAL | | | Total | | | LAB | | + + + + + + | ALP, | 77 | 35 - 115 U/L | EXTERNAL | | | External | | | LAB | | + + + + + + | AST | 13 | 10 - 45 U/L | EXTERNAL | | | | | | LAB | | + + + + + + | ALT | 18 | 10 - 65 U/L | EXTERNAL | | | | | | LAB | | + + + + + + | Estimated | >60Comment: GFR <60: | mL/min/{1.73_m2 | EXTERNAL | | | GFR | CHRONIC KIDNEY DISEASE, | } | LAB | | | | IF [...]
--- OUTSIDE RECORDS SUMMARY | ~2020-02-05 | XMS | Encounter Summary ---
Demographics + + + | Address | [address] | | | [place] [address] | + + + | Home Phone | | + + + | Preferred Language | Unknown | + + + | Marital Status | | + + + | Scientology Affiliation | 1077 | + + + | Race | Unknown | + + + | Ethnic Group | Unknown | + + + Author + + + | Author | [facility] | | | and [place] | + + + | Organization | [facility] | | | [...] [place] | | | | | [address] | | + + + + + | Arin Ulloa | ECON | Unknown | | + + + + + Care Team Providers + +------+ + | Care Blender Conveyor Operator Name | Role | Phone | [...] Description | +--------+--------+ + + + | 09/18/ | Refill | [facility] | Schiefelbein, | Medication Refill | | 2019 | | RHEUMATOLOGY [address] | Tiff Reina, [facility] [address] | | | | | [address] | [address] | | | | | [place], [place] | [place] [address] | | | | | [address] | [phone] | | | | | [phone] | | | +--------+--------+ + + + [...] | | | | | | [place] [address] | | | | | | [phone] | | | | | | | | +--------+---------+ + + + | 04/05/ | Office | Cardiology | Andrade Hobbs, | | | 2019 | Visit | | MD Curtis ESPARZA | | | | | | [place] | | | | | | [address] | | | | | | | | +--------+---------+ + + + documented as of this encounter Visit Diagnoses + + | Diagnosis | + + | Rheumatoid arthritis of multiple sites with negative rheumatoid factor (HCC) - Primary | + + documented in this encounter"
--- OUTSIDE RECORDS SUMMARY | ~2020-02-05 | XMS | Clinical Summary ---
Demographics + + + | Address | [address] | | | [place] [address] | + + + | Home Phone | | + + + | Preferred Language | Unknown | + + + | Marital Status | | + + + | Religion Affiliation | Unknown | + + + | Race | White | + + + | Ethnic Group | Not or | + + + Author + + + | Author | [facility] | + + + | Organization | [facility] | + + + | Address | Unknown | + + + | Phone | Unavailable | + + + Care Team Providers + +------+ + | Care Behavioral Health Professional Name | Role | Phone | + +------+ + PCP | Unavailable | + +------+ + Source Comments [facility] is fully live on both [facility] Ambulatory and [facility] InPatient.[facility] Allergies Not on File Medications Not on [...] | | | | all | | [address] | | | | | | dates | | | | + +--------+ +--------+ + +--------+ | [place] | BLUE | [phone] | Effect | [phone] | [address] | [address] | | | CROSS | | [address] | [address] | [address] | | | | [place] | | for | | [place], | | | | L | | all | | [place] [address] | | | | | | dates [...] | 1936 | [phone] | [place] [address] | | | sonny | | | 0 (Home) | | + +--------+ +--------+ + +"
--- OUTSIDE RECORDS SUMMARY | ~2020-02-05 | XMS | Encounter Summary ---
Demographics + + + | Address | [address] | | | [place] [address] | + + + | Home Phone | | + + + | Preferred Language | Unknown | + + + | Marital Status | | + + + | Yarsanism Affiliation | 1077 | + + + | Race | Unknown | + + + | Ethnic Group | Unknown | + + + Author + + + | Author | [facility] | | | and [place] | + + + | Organization | [facility] | | | and [...] [place] | | | | | [address] | | + + + + + | Arin Ulloa | ECON | Unknown | | + + + + + Care Team Providers + +------+ + | Care Butcherette Name | Role | Phone | + +------+ + | Fabricio Bah | PCP | | | MD | | | + +------+ + Encounter Details +--------+ + + + + | Date | Type | Department | Care Team | Description | +--------+ + + + + | 07/26/ | Documentati | [facility] | Andrade Hobbs, | | | 2019 | on | CARDIOLOGY [place] | [address] | | | | | [address] | [place], [place] | | | | | [place], [place] | [address] | | | | | [address] | | | | | | [phone] | | | +--------+ + + + [...] | | | | | | [place] [address] | | | | | | [phone] | | | | | | | | +--------+---------+ + + + | 04/05/ | Office | Cardiology | Andrade Hobbs, | | | 2019 | Visit | | MD Curtis ESPARZA | | | | | | [place] | | | | | | [id number] | | | | | | | | +--------+---------+ + + + documented as of this encounter Visit Diagnoses Not on filedocumented in this encounter"
--- OUTSIDE RECORDS SUMMARY | ~2020-02-05 | XMS | Encounter Summary ---
Demographics + + + | Address | [address] | | | [place] [address] | + + + | Home Phone | | + + + | Preferred Language | Unknown | + + + | Marital Status | | + + + | Confucianist Affiliation | 1077 | + + + | Race | Unknown | + + + | Ethnic Group | Unknown | + + + Author + + + | Author | [facility] | | | and [place] | + + + | Organization | [facility] | | | and [...] [place] | | | | | [address] | | + + + + + | Arin Ulloa | ECON | Unknown | | + + + + + Care Team Providers + +------+ + | Care Assembler Arranger Name | Role | Phone | + [...] Description | +--------+---------+ + + + | 06/09/ | Office | [facility] | DevinAndrade, | Chronic systolic | | 2019 | Visit | CARDIOLOGY [place] | MD Curtis ESPARZA | heart failure (HCC) | | | | [address] | [place], [place] | (Primary Dx); | | | | [address] [facility] [address] | [id number] | Coronary artery | | | | [place] | | disease of bypass | | | | [address] | | graft of [place]ankton | | | | [phone] | | heart with stable | | | | | | angina pectoris | | | | | | (HCC); Stable angina | | | | | | (HCC); Essential | | | | | | hypertension | +--------+---------+ + + + Social History [...] + + + | Blood Pressure | 128/64 | 06/09/2019 12:49 PM | | | | | PDT | | + + + + + | Pulse | 54 | 06/09/2019 12:49 PM | | | | | PDT | | + + + + + | Temperature | - | - | | + + + + + | Respiratory Rate | - | - | | + + + + + | Oxygen Saturation | 94% | 06/09/2019 12:49 PM | | | | | PDT | | + + + + + | Inhaled Oxygen | - | - | | | Concentration | | | | + + + + + | Weight | 77.4 kg (170 lb 11.2 | 06/09/2019 12:49 PM | | | | oz) | PDT | | + + + + + | Height | 177.8 cm (5' 10") | 06/09/2019 12:49 PM | | | | | PDT | | + + + + + | Body Mass Index | 24.49 | 06/09/2019 12:49 PM | | | | | PDT | | + + + + + documented in this encounter Progress Notes Andrade Garcia MD - 06/09/2019 1:00 PM PDTFormatting of this note might be different f rom the original. Date of visit: 06/09/2019 Primary Care Physician: Fabricio Bah MD CHIEF COMPLAINT: Chief Complaint Patient presents with Follow-up HISTORY OF PRESENT ILLNESS: Deep is 83 y.o. here for Complex past medical history. Had one episode of chest pain while preparing for pentecostal on Friday, took 2 nitroglycerin at that time. No symptoms since then. Weight has been stable. No lower extremity edema orthopnea. Limited activity level due to hip and lower back pain. Monitor his blood pressure at home and it has been controlled. Since prior encounter no further hospitalization, no change in medication. No further GI bleed. Restarted on benzodiazepine secondary to depression. Has been having increased fatigue lately. Last hospitalization in [facility] on 07 April 2018 secondary to non-ST elevation GA. L eft heart catheterization showed severe three-vessel [...] chart. Medications: Outpatient Encounter Medications as of 06/09/2019 Medication Sig Dispense Refill aspirin 81 MG tablet Take 81 mg by mouth daily. [DISCONTINUED] Cholecalciferol (VITAMIN D PO) Take 1 tablet by mouth daily. (Patient no t taking: Reported on 06/09/2019) citalopram (CELEXA) 20 mg tablet Take 20 mg by mouth Daily. clopidogrel (PLAVIX) 75 mg tablet Take 1 tablet by mouth daily. 90 tablet 3 Fish Oil 1000 MG delayed release capsule Take 1 g by mouth daily. [DISCONTINUED] HYDROcodone-acetaminophen (NORCO) 5-325 mg per tablet Take 1 tablet by m outh 2 (two) times daily as needed for Pain. (Patient not taking: Reported on 06/09/2019) isosorbide mononitrate 60 mg ER tablet Take 1 tablet by mouth daily. 90 tablet 3 lisinopril (PRINIVIL, ZESTRIL) 10 mg tablet TAKE 1 TABLET DAILY 90 tablet 1 metoprolol succinate (TOPROL-XL) 50 mg 24 hr tablet Take 1 tablet by mouth daily. 90 ta blet 3 nitroglycerin (NITROSTAT) 0.[address] 1 tablet under the tongue every 5 (fiv e) minutes as needed for Chest pain. 25 tablet 11 predniSONE (DELTASONE) 5 mg tablet TAKE 1 TABLET DAILY WITH BREAKFAST 90 tablet 1 [DISCONTINUED] predniSONE (DELTASONE) 5 mg tablet Take 1-2 tablets daily with breakfast (Patient not taking: Reported on 06/09/2019) 60 tablet 2 sulfaSALAzine (AZULFIDINE) 500 mg tablet take 1 tablet by mouth twice a day 180 tablet 0 zolpidem (AMBIEN) 10 mg tablet Take 10 mg by mouth nightly as needed for Insomnia. No facility-administered encounter medications on file as of 06/09/2019. Allergies Allergies Allergen Reactions Adhesive & Tape Other (See Comments) Adhesives in tape. Skin very fragile. Pravastatin Other (See Comments) Myalgias, myositis REVIEW OF SYSTEMS: Constitutional: Positive for increased fatigue. No fever, chills, and rigors. No report of weight change. HEENT: Negative for nosebleeds, ear discharge, nasal [...] or anxiety. PHYSICAL EXAM Vital Signs: BP 128/64 | Pulse 54 | Ht 1.778 m (5' 10") | Wt 77.4 kg (170 lb 11.2 oz) | SpO2 94% | BMI 24.49 kg/m GENERAL APPEARANCE: Alert, oriented, cooperative, no [...] No palpable organs. Active bowel sounds. EXTREMITIES: No lower extremities edema, cyanosis or clubbing. NEURO: Alert and oriented times three with no focal deficit. Cranial nerves are grossly no rmal. SKIN: Warm and dry. No rash. Psych: Normal affect and mood. DATA Lab Results Component Value Date/Time NA 141 12/28/2018 13:13 NA 141 10/15/2018 13:45 NA 140 07/29/2018 13:08 K 4.4 12/28/2018 13:13 K 4.8 10/15/2018 13:45 K 4.4 07/29/2018 13:08 CO2 33 (H) 12/28/2018 13:13 CO2 27 10/15/2018 13:45 CO2 31 07/29/2018 13:08 BUN 24 12/28/2018 13:13 BUN 25 (A) 10/15/2018 13:45 BUN 25 07/29/2018 13:08 LABCREA 1.1 12/28/2018 13:13 LABCREA 1.14 (A) 10/15/2018 13:45 LABCREA 1.1 07/29/2018 13:08 CALCIUM 9.1 12/28/2018 13:13 CALCIUM 9.5 10/15/2018 13:45 CALCIUM 8.9 07/29/2018 13:08 MG 2.3 04/13/2018 04:01 MG 2.1 04/12/2018 04:26 MG 2.2 04/11/2018 04:18 Lab Results Component Value Date/Time WBC 9.13 12/28/2018 13:13 WBC 9.5 10/15/2018 13:45 WBC 9.67 07/29/2018 13:08 HGB 13.9 12/28/2018 13:13 HGB 15.0 10/15/2018 13:45 HGB 14.0 07/29/2018 13:08 MCV 95.9 12/28/2018 13:13 MCV 97.3 10/15/2018 13:45 MCV 94.3 07/29/2018 13:08 Lab Results Component Value Date GLUF 152 (H) 12/28/2018 GLUF 106 (A) 10/15/2018 EC06/09/2019 Ordered and reviewed by myself showed sinus bradycardia with long first-degree AV block, OR interval of almost 400 ms. 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 JITNEY DRIVER of [place]. Patent RAM to LAD. Severe [...] above. Stable anginal symptoms. 2. Chronic fatigue. Which has been increasing lately. 3. Hypertension. 4. History of GIB with no reoccurrence. Hemoglobin level are stable. 5. Dyslipidemia. 6. Mild ischemic cardiomyopathy. 7. Premature ventricular contractions with total burden of 4.6%. Plan: Patient had one episode of chest pain since prior evaluation. Blood pressure trolled. Reviewed EKG that showed long first-degree AV block. At this time will decrease metoprolol dose to 25 mg p.o. daily. Continue lisinopril 10 mg p.o. daily. Increase isosorbide mononitrate to 90 mg p.o. daily, can take 60 in the morning and 30 in a fternoon if needed. No evidence of volume overload. Tolerating antiplatelet therapy with clopidogrel and aspirin. May need eye surgery, mild risk, can proceed with above procedure with acceptable risk. Clopidogrel can be held 5 to 7 days prior to surgery. Will reevaluate the patient in 1 month. Needs screening for depression. *This report has been prepared using a voice recognition system. The report was reviewed fo r accuracy, however, sound-alike word errors, addition and/or deletions may occur. If there is any question about this report please contact me. Andrade Garcia MD, MPH P M PDTdocumented in this encounter Plan of Treatment +--------+---------+ + + + | Date | Type | Specialty | Care Team | Description | +--------+---------+ + + + | 03/20/ | Office | Rheumatology | Roxi, | | | 2019 | Visit | | [address] | | | | | [address] | | | | | | [place] [address] | | | | | | [phone] | | | | | | | | +--------+---------+ + + + | 04/05/ | Office | Cardiology | Andrade Garcia, | | | 2019 | Visit | | MD Curtis ESPARZA | | | | | | [place] | | | | | | [address] | | | | | | | | +--------+---------+ + + + documented as of this encounter Procedures + +--------+ + + + | Procedure Name | Priori | Date/Time | Associated Diagnosis | Comments | | | ty | | | | + +--------+ + + + | ECG 12 LEAD | Routin | 06/09/2019 | Chronic systolic | Results for this | | | e | 1:04 PM | heart failure (HCC) | procedure are in the | | | | PDT | Coronary artery | results section. | | | | | disease of bypass | | | | | | graft of [place] | | | | | | heart with stable | | | | | | angina pectoris | | | | | | (HCC) Stable angina | | | | | | (HCC) | | + +--------+ + + + | LABS - EXTERNAL SCAN | | 10/15/2018 | | Results for this | | | | 12:00 AM | | procedure are in the | | | | PST | | results section. | + +--------+ + + + documented in this encounter Results ECG 12 lead (06/09/2019 1:04 PM PDT) + + + + + + | Component | Value | Ref Range | Performed | Pathologist | | | | | At | Signature | + + + + + + | VENTRICULAR | 55 | BPM | [facility] | | | RATE EKG | | | | | + + + + + + | ATRIAL RATE | 55 | BPM | [facility] | | + + + + + + | QRS | 82 | ms | [facility] | | | DURATION | | | | | + + + + + + | Q-T | 454 | ms | [facility] | | | INTERVAL | | | | | + + + + + + | Q-T | 434 | ms | [facility] | | | INTERVAL | | | | | | (CORRECTED) | | | | | + + + + + + | QRS AXIS | 44 | degrees | [facility] | | + + + + + + | T AXIS | 28 | degrees | [facility] | | + + + + + + | INTERPRETAT | Please refer to | | [facility] | | | ION TEXT | Providers office visit | | | | | | note for Providers | | | | | | Interpretation.Confirmed | | | | | | by [facility] [place] Read Only, | | | | | | [facility] ([id number]), | | | | | | electronic news gathering editor LARRY DARLING | | | | | | ([phone]) on 06/10/2019 | | | | | | 12:06:07 PM | | | | + + [...] | | | + +---------+ + + LABS - EXTERNAL SCAN (10/15/2018 12:00 AM PST) + + + | Narrative | Performed At | + + + | Ordered by an | | | unspecified provider. | | + + + documented in this encounter Visit Diagnoses + + | Diagnosis | + + | Chronic systolic heart failure (HCC) - Primary Chronic systolic heart failure | + + | Coronary artery disease of bypass graft of [place] heart with stable angina pectoris | | (HCC) | + + | Stable angina (HCC) Other and unspecified angina pectoris | + + | Essential hypertension Unspecified essential hypertension | + + documented in this encounter
--- OUTSIDE RECORDS SUMMARY | ~2020-02-05 | XMS | Encounter Summary ---
Demographics + + + | Address | [address] | | | [place] [address] | + + + | Home Phone | | + + + | Preferred Language | Unknown | + + + | Marital Status | | + + + | Orthodoxy Affiliation | 1077 | + + + | Race | Unknown | + + + | Ethnic Group | Unknown | + + + Author + + + | Author | [facility] | | | and [place] | + + + | Organization | [facility] | | [...] [place] | | | | | [address] | | + + + + + | Arin Ulloa | ECON | Unknown | | + + + + + Care Team Providers + +------+ + | Care End Worker Name | Role | Phone | + +------+ + | Fabricio Bah | PCP | | | MD | | | + +------+ + Encounter Details +--------+---------+ + + + | Date | Type | Department | Care Team | Description | +--------+---------+ + + + | 08/06/ | Surgery | [facility] | Esequiel Spencer | RIGHT EYE LENS | | 2019 | | [facility] | MD [address] | EXCHANGE W/ | | | | [address] | [place] | VITRECTOMY | | | | [place] | [place] [address] | | | | | [address] | [phone] | | | | | [phone] | | | +--------+---------+ + + + Social History [...] symptoms, immediately call your eye doctor or [facility] at (dial "9" after hours [...] | | | | | | [address] | | | | | | [place] [address] | | | | | | [phone] | | | | | | | | +--------+---------+ + + + | 04/05/ | Office | Cardiology | Andrade Hobbs, | | | 2019 | Visit | | MD Curtis ESPARZA | | | | | | [place] | | | | | | [address] | | | | | | | [...] + | Diagnosis | + + | Displacement of intraocular lens, subsequent encounter | + + documented in this encounter [...] | | | + +---+ + +-------+ + +---+ + | balanced salts sterile | Given | 08/06/20 | 1 | | Surgical | | ophthalmic irrigation solution | | 19 1:53 | Applicat | | Site | | PRN, Starting Fri08/06/19 at | | PM PST | ion | | | | 1353, Intra-op | | | | | | + +-------+ + +---+ + +---+---+ | | | +---+---+ + +-------+ +------+---+---+ | BSS 2.25mL + lidocaine PF 2% | Given | 08/06/20 | 1 mL | | | | 0.75mL + EPINEPHrine (1:1000) 1mL | | 19 1:53 | | | | | one step ophthalmic solution | | PM PST | | | | | PRN, Starting 08/06/19 at | | | | | | | 1353, Intra-op | | | | | | + +-------+ +------+---+---+ + +---+ | | | + +---+ | dextrose 50% injection 12.5-25 | | | g 12.5-25 g, Intravenous, EVERY | | | 15 MIN PRN, Low Blood Sugar, Give | | | 12.5g (25 mL) IV if blood | | | glucose 50-69 mg/dL. Give 25g | | | (50 mL) IV if blood glucose < 50, | | | Starting 08/06/19 at 1130, | | | Repeat in [...] One week or | | | longer, mhwgpr-wdi-wevev use of | | | at least the following DAILY | | | dose: 60mg oral morphine, 60mg | | | oral hydrocodone, 30mg oral | | | oxycodone, 8mg oral | | | hydromorphone, fentanyl patch | | | 25mcg/hr, or equivalent dose of | | | another opioid], Recovery/Phase I | | + +---+ | | | + +---+ + +-------+ +-------+---+---+ | hyaluronate & chondroitin | Given | 08/06/20 | 1 kit | | | | hyaluronate (DUOVISC) intraocular | | 19 1:53 | | | | | kit PRN, Starting Fri08/06/19 | | PM PST | | | | | at 1353, Intra-op | | | | | | + +-------+ +-------+---+---+ + +---+ | | | + +---+ [...] One week or longer, | | | axwrxn-oiv-vblif use of at least | | | [...] +---+---+ | | | +---+---+ + +-------+ + +---+ + | lidocaine (XYLOCAINE) 2% jelly | Given | 08/06/20 | 1 | | Surgical | | (uro-jet) PRN, Starting Fri | | 19 1:32 | Applicat | | Site | | 08/06/19 at 1332, Intra-op | | PM PST | ion | | | + +-------+ + +---+ + + +---+ | | | + +---+ [...] | | | + +---+ + +-------+ +--------+---+ + | moxifloxacin (VIGAMOX) 0.5 % | Given | 08/06/20 | 0.5 mg | | [facility] | | intracameral injection PRN, | | 19 1:55 | | | t | | Starting Fri08/06/19 at 1355, | | PM PST | | | | | Intra-op | | | | | | + +-------+ +--------+---+ + + +---+ | | | + +---+ [...] | | | | | Incision, Starting 08/06/19 at | | | | | | [...] | | +---+---+ + +-------+ +--------+---+---+ | povidone-iodine 5 % ophthalmic | Given | 08/06/20 | 1 drop | | | | solution PRN, Starting Fri | | 19 1:17 | | | | | 08/06/19 at 1317, Intra-op | | PM PST | | | | + +-------+ +--------+---+---+ [...] | | | | | Incision, Starting 08/06/19 at | | | | | | [...] | | +---+---+ + +-------+ +--------+---+---+ | proparacaine (ALCAINE) 0.5% | Given | 08/06/20 | 1 drop | | | | ophthalmic solution PRN, | | 19 1:09 | | | | | Starting Fri08/06/19 at 1309, | | PM PST | | | | | Intra-op | | | | | | + +-------+ +--------+---+---+ +---+---+ | | | +---+---+ + +-------+ +------+---+ + | triamcinolone acetonide | Given | 08/06/20 | 5 mg | | [facility] | | (KENALOG-10) 10 mg/mL injection | | 19 1:57 | | | t | | PRN, Starting Fri08/06/19 at | | PM PST | | | | | 1357, Intra-op | | | | | | + +-------+ +------+---+ + +---+---+ | | | +---+---+ + +-------+ +--------+---+---+ | tropicamide (MYDRIACYL) 1% | Given | 08/06/20 | 1 drop | | | | ophthalmic solution 1 drop 1 | | 19 12:02 | | | | | drop, Right Eye, Prior to | | PM PST | | | | | Incision, Starting 08/06/19 at | | | | | | [...]
--- OUTSIDE RECORDS SUMMARY | ~2020-02-05 | XMS | Encounter Summary ---
Demographics + + + | Address | [address] | | | [place] [address] | + + + | Home Phone | | + + + | Preferred Language | Unknown | + + + | Marital Status | | + + + | Oriental Orthodox Affiliation | 1077 | + + + | Race | Unknown | + + + | Ethnic Group | Unknown | + + + Author + + + | Author | [facility] | | | and [place] | + + + | Organization | [facility] | | | [...] [place] | | | | | [address] | | + + + + + | Arin Ulloa | ECON | Unknown | | + + + + + Care Team Providers + +------+ + | Care Director Risk Name | Role | Phone | + +------+ + | Fabricio Bah | PCP | | | MD | | | + +------+ + Encounter Details +--------+ + + + + | Date | Type | Department | Care Team | Description | +--------+ + + + + | 08/02/ | Orders Only | [facility] | Tejinder Lau, | Other long-term | | 2019 | | [address] | Delivery Analyst | (current) drug | | | | [place] | | therapy; Rheumatoid | | | | [address] | | arthritis of | | | | [phone] | | multiple sites | | | [...] | | | | | | [place] [address] | | | | | | [phone] | | | | | | | | +--------+---------+ + + + | 04/05/ | Office | Cardiology | Andrade Hobbs, | | | 2019 | Visit | | MD Curtis ESPARZA | | | | | | [place] | | | | | | [address] | | | | | | | | +--------+---------+ + + + documented as of this encounter Procedures + +--------+ + + + | Procedure Name | Priori | Date/Time | Associated Diagnosis | Comments | | | ty | | | | + +--------+ + + + | SEDIMENTATION RATE | Routin | 08/02/2019 | Other long-term | Results for this | | | e | 2:17 PM | (current) drug | procedure are in the | | | | PST | therapy Rheumatoid | results section. | | | | | arthritis of | | | | | | multiple sites | | | | | | without rheumatoid | | | | | | factor (HCC) | | + +--------+ + + + | CBC WITH | Routin | 08/02/2019 | Other long-term | Results for this | | DIFFERENTIAL | e | 2:17 PM | (current) drug | procedure are in the | | | | PST | therapy Rheumatoid | results section. | | | | | arthritis of | | | | | | multiple sites | | | | | | without rheumatoid | | | | | | factor (HCC) | | + +--------+ + + + | COMPREHENSIVE | Routin | 08/02/2019 | Other long-term | Results for this | | METABOLIC PANEL | e | 2:17 PM | (current) drug | procedure are in the | | | | PST | therapy Rheumatoid | results section. | | | | | arthritis of | | | | | | multiple sites | | | | | | without rheumatoid | | | | | | factor (HCC) | | + +--------+ + + + documented in this encounter Results CBC with Differential (08/02/2019 2:17 PM PST) [...] + + + + + + | RBC | 4.27 | 4.20 - 5.70 | REFERENCE | | | | | M/uL | LAB | | [...] | | | Absolute | performed at [facility];[address] | [address] | LAB | | | | [place] | | [facility] | | | | [address];[place] [address] | | LABORATORY | | + + + + + + + + | Specimen | + + | Blood | + + + + + + + | Performing | Address | City/State/Zipcode | Phone Number | | Organization | | | | + + + + + | REFERENCE LAB | [address] | [place] | [phone] | | [facility] [address] | [address] | | | LABORATORY | | | | + + + + + | REFERENCE LAB | [address] | [place] | | | [facility] | [address] | [address] | | | LABORATORY | | | [...] | | | | | performed at [facility];[address] | | | | | | [facility] | | | | | | [facility];[place] [address] | | | | | | | | | | + + + + + + + + | Specimen | + + | Blood | + + + + + + + | Performing | Address | City/State/Zipcode | Phone Number | | Organization | | | | + + + + + | REFERENCE LAB | [address] [place] [address] | [place] | [phone] | | [facility] | [address] | [address] | | | LABORATORY | | | | + + + + + | REFERENCE LAB | [address] [place] [address] | [place] | | | [facility] | [address] | [address] | | | LABORATORY | | | | + + + + + Sedimentation Rate (08/02/2019 2:17 PM PST) + + + + + + | Component | Value | Ref Range | Performed | Pathologist | | | | | At | Signature | + + + + + + | ESR | 8Comment: Testing | 0 - 20 mm/Hr | REFERENCE | | | | performed at [facility];[address] | | LAB | | | | [place] | | [facility] | | | | [address];[place] [address] | | LABORATORY | | + + + + + + + + | Specimen | + + | Blood | + + + + + + + | Performing | Address | City/State/Zipcode | Phone Number | | Organization | | | | + + + + + | REFERENCE LAB | [address] [place] [address] | [place] | [phone] | | [facility] | [address] | [address] | | | LABORATORY | | | | + + + + + | REFERENCE LAB | [address] [place] [address] | [place], [place] | | | [facility] | [address] 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
--- OUTSIDE RECORDS SUMMARY | ~2020-02-05 | XMS | Encounter Summary ---
Demographics + + + | Address | [address] | | | [place] [address] | + + + | Home Phone | | + + + | Preferred Language | Unknown | + + + | Marital Status | | + + + | Nondenominational Affiliation | 1077 | + + + | Race | Unknown | + + + | Ethnic Group | Unknown | + + + Author + + + | Author | [facility] | | | and [place] | + + + | Organization | [facility] | | | [...] [place] | | | | | [address] | | + + + + + | Arin Ulloa | ECON | Unknown | | + + + + + Care Team Providers + +------+ + | Care Rehabilitation Engineer Name | Role | Phone | + +------+ + | Fabricio Bah | PCP | | | MD | | | + +------+ + Encounter Details +--------+ + + + + | Date | Type | Department | Care Team | Description | +--------+ + + + + | 03/18/ | Orders Only | [facility] | Roxi, | | | 2016 | | [address] | [place] [address] | | | | | [place], [place] | [address] | | | | | [address] | [place] [address] | | | | | [phone] | [phone] | | | | | | | [...] | | | | | [place] [address] | | | | | | [phone] | | | | | | | | +--------+---------+ + + + | 04/05/ | Office | Cardiology | Andrade Hobbs, | | | 2019 | Visit | | MD Curtis ESPARZA | | | | | | [place] | | | | | | [address] | | | | | | | | +--------+---------+ + + + documented as of this encounter Procedures + +--------+ + + + | Procedure Name | Priori | Date/Time | Associated Diagnosis | Comments | | | ty | | | | + +--------+ + + + | EXTERNAL LAB: CBC | Routin | 03/18/2017 | | Results for this | | | e | 12:46 PM | | procedure are in the | | | | PDT | | results section. | + +--------+ + + + | SEDIMENTATION RATE, | Routin | 03/18/2017 | | Results for this | | AUTOMATED | e | 12:46 PM | | procedure are in the | | | | PDT | | results section. | + +--------+ + + + | C-REACTIVE PROTEIN | Routin | 03/18/2017 | | Results for this | | | e | 12:46 PM | | procedure are in the | | | | PDT | | results section. | + +--------+ + + + | COMPREHENSIVE | Routin | 03/18/2017 | | Results for this | | METABOLIC PANEL | e | 12:46 PM | | procedure are in the | | | | PDT | | results section. | + +--------+ + + + documented in this encounter Results Sedimentation rate, automated (03/18/2017 12:46 PM PDT) + +-------+ + + + | Component | Value | Ref Range | Performed | Pathologist | | | | | At | Signature | + +-------+ + + + | Sed Rate | 10 | 0 - 20 mm/h | EXTERNAL [...] + +---------+ + + External Lab: CBC (03/18/2017 12:46 PM PDT) + + + + + + | Component | Value | Ref Range | Performed | Pathologist | | | | | At | Signature | + + + + + + | WBC | 9.72 | 3.80 - 11.00 | EXTERNAL | | | | | 10*3/uL | LAB | | + + + + + + | Red Blood | 4.73 | 4.20 - 5.70 | EXTERNAL | | | Cells | | 10*6/uL | LAB | | | Counted | | | | | + + + + + + | Hemoglobin | 15.2 | 13.2 - 17.0 | EXTERNAL | | | | | g/dL | LAB | | + + + + + + | Hematocrit, | 45.3 | 39.0 - 50.0 % | EXTERNAL | | | POC | | | LAB | | + + + + + + | MCV | 95.9 | 80.0 - 100.0 fL | EXTERNAL | | | | | | LAB | | + + + + + + | MCH | 32.1 | 27.0 - 34.0 pg | EXTERNAL | | | | | | LAB | | + + + + + + | MCHC | 33.4 | 32.0 - 35.5 | EXTERNAL | | | | | g/dL | LAB | | + + + + + + | RDW-CV | 43.3 | 37 - 53 fL | EXTERNAL | | | | | | LAB | | + + + + + + | Platelet | 160 | 150 - 400 | EXTERNAL | | | Count | | 10*3/uL | LAB | | | Plasma | | | | | + + + + + + | MPV | 9.8 | fL | EXTERNAL | | | | | | LAB | | + + + + + + | Differentia | AUTOMATED | | EXTERNAL | | | l Type | | | LAB | | + + + + + + | % Segmented | 84.52 | % | EXTERNAL | | | | | | LAB | | | Neutrophils | | | | | + + + + + + | % | 7.99 | % | EXTERNAL | | | Lymphocytes | | | LAB | | + + + + + + | % Monocytes | 6.30 | % | EXTERNAL | | | | | | LAB | | + + + + + + | % | 0.78 | % | EXTERNAL | | | Eosinophils | | | LAB | | + + + + + + | % Basophils | 0.41 | % | EXTERNAL | | | | | | LAB | | + + + + + + | Absolute | 8.22 (H) | 1.90 - 7.40 | EXTERNAL | | | Segmented | | 10*3/uL | LAB | | | Neutrophils | | | | | + + + + + + | Absolute | 0.78 (L) | 1.00 - 3.90 | EXTERNAL | | | Lymphocytes | | 10*3/uL | LAB | | + + + + + + | Absolute | 0.61 | 0.00 - 0.80 | EXTERNAL | | | Monocytes | | 10*3/uL | LAB | | + + + + + + | Absolute | 0.08 | 0.00 - 0.50 | EXTERNAL | | | Eosinophils | | 10*3/uL | LAB | | + + + + + + | Absolute | 0.04 | 0.00 - 0.10 | EXTERNAL | [...] | | | + +---------+ + + C-Reactive Protein (03/18/2017 12:46 PM PDT) + +-------+ + + + | Component | Value | Ref Range | Performed | Pathologist | | | | | At | Signature | + +-------+ + + + | CRP | 0.4 | mg/dL | EXTERNAL | | | | [...] + +---------+ + + Comprehensive Metabolic Panel (03/18/2017 12:46 PM PDT) + + + + + + | Component | Value | Ref Range | Performed | Pathologist | | | | | At | Signature | + + + + + + | Na | 141 | 135 - 145 | EXTERNAL | | | | | mmol/L | LAB | | + + + + + + | K | 4.2 | 3.5 - 4.9 | EXTERNAL | | | | | mmol/L | LAB | | + + + + + + | Cl | 103 | 99 - 109 mmol/L | EXTERNAL | | | | | | LAB | | + + + + + + | CO2 | 31 | 23 - 32 mmol/L | EXTERNAL [...] + + + + | BUN | 30 (H) | 8 - 25 mg/dL | EXTERNAL | | | | | | LAB | | + + + + + + | Creatinine | 1.2 | 0.70 - 1.30 | EXTERNAL | | | | | mg/dL | LAB | | + + + + + + | BUN/Creatin | 25 | | EXTERNAL | | | ine [...] + + + + | Albumin | 3.9 | 3.3 - 4.8 g/dL | EXTERNAL | | | | | | LAB | | + + + + + + | Globulin | 2.4 | 1.3 - 4.9 g/dL | EXTERNAL | | | | | | LAB | | + + + + + + | A/G Ratio | 1.6 | 1.0 - 2.4 | EXTERNAL | | | | | | LAB | | + + + + + + | Bilirubin | 0.9 | 0.1 - 1.5 mg/dL | EXTERNAL | | | Total | | | LAB | | + + + + + + | ALP, | 75 | 35 - 115 U/L | EXTERNAL | | | External | | | LAB | | + + + + + + | AST | 19 | 10 - 45 U/L | EXTERNAL | | | | | | LAB | | + + + + + + | ALT | 25 | 10 - 65 U/L | EXTERNAL | | | | | | LAB | | + + + + + + | Estimated | >60Comment: GFR <60: | mL/min/1.73_m2 | EXTERNAL | | | GFR | [...]
--- OUTSIDE RECORDS SUMMARY | ~2020-02-05 | XMS | Clinical Summary ---
Demographics + + + | Address | [address] | | | [place] [address] | + + + | Home Phone | | + + + | Preferred Language | Unknown | + + + | Marital Status | | + + + | Orthodox Affiliation | 1077 | + + + | Race | Unknown | + + + | Ethnic Group | Unknown | + + + Author + + + | Author | [facility] | | | and [place] | + + + | Organization | [facility] | | | [...] [place] | | | | | [address] | | + + + + + | Arin Ulloa | ECON | Unknown | | + + + + + Care Team Providers + +------+ + | Care Broiler Supervisor Name | Role | Phone | [...] mouth | | 0 | 06/2 | | Activ | | tablet | daily. | | | 7/20 | | e | | | | | | 16 | | | + + + +---------+------+------+-------+ | Fish Oil 1000 MG | Take 1 g by mouth | | 0 | 04/0 | | Activ | | delayed release | daily. | | | 3/20 | | e | | capsule | | | | 19 | | | + + + +---------+------+------+-------+ [...] | | + + + +---------+------+------+-------+ | metoprolol | Take 1 tablet by | 90 | 3 | 10/2 | 10/2 | Activ | | succinate | mouth Daily. | tablet | | 8/20 | 7/20 | e | | (TOPROL-XL) 25 mg 24 | | | | 19 | 20 | | | hr tablet | | [...] 0 | | | Activ | | 0.3% ophthalmic | the right eye Daily. | | | | | e | | suspension | | | | | | | + + + +---------+------+------+-------+ | predniSONE | TAKE 1 TABLET DAILY | 90 | 1 | 01/0 | | Activ | | (DELTASONE) 5 mg | WITH BREAKFAST | tablet | | 6/20 | | e | | tablet | [...] | | + + + +---------+------+------+-------+ | sodium chloride | 1 drop as needed. | | 0 | | | Activ | | (LORIN 128) 5% | | | | | | e | | ophthalmic solution | | | | | | | + + + +---------+------+------+-------+ | prednisoLONE (PRED | 1 drop 4 times | | 0 | | | Activ | | FORTE) 1% | daily. | | | | | e | | ophthalmic | | | | | | | | suspension | | | | | | | + + + +---------+------+------+-------+ | clopidogrel | Take 1 tablet by | 90 | 3 | 02/2 | 02 | Activ | | (PLAVIX) 75 mg | mouth Daily. | tablet | | 0/20 | 9/20 | e | | tablet | | | | 20 | 21 | | + + + +---------+------+------+-------+ | sulfaSALAzine | take 1 tablet by | 180 | 0 | 03/ | | Activ | | (AZULFIDINE) 500 mg | mouth twice a day | tablet | | 6/20 | | e | | tabletIndications: | [...] | 150 | 3 | 04/1 | | Activ | | mononitrate 60 mg ER | mouth Daily. Take 90 | tablet | | 3/20 | | e | | tablet | mg in am and 30 mg | | | 20 | | | | | in pm. | | | | | | + + + +---------+------+------+-------+ | isosorbide | Take 1.5 tablets by | 135 | 3 | 10/2 | 04/1 | Disco | | mononitrate 60 mg ER | mouth Daily. | tablet | | 2/20 | 3/20 | ntinu | | tablet | | | | 19 | 20 | ed | | | | | | | | (Reor | | | | | | | | lynn) | + + + +---------+------+------+-------+ | isosorbide | Take 1.5 tablets by | 150 | 3 | 12/28 | 12/28 | Disco | | mononitrate 60 mg ER | mouth Daily. Take 90 | tablet | | 3/20 | 3/ | ntinu | | tablet | mg in am and 30 mg | | | 20 | 20 | ed | | | in pm. 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 Responding | | well to current treatment plan. No change in treatment plan. 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 | | Counseled regarding medication compliance as well as potential | | toxicities with medications such as cytopenias, liver | | abnormalities and risks for infection, and the need for routine | | blood work monitoring. | + + + + + + | NSTEMI (non-ST [...] | Roxi, | Other (Called for | 2019 | | | [place] | Virtual Visit) | +--------+ + + + + | 01/09/ | Documentati | Cardiology | Andrade Hobbs, | | | 2019 | on | | MD | | +--------+ + + + + | 01/01/ | Refill | Cardiology | Chasity Vanegas | Medication Refill | | 2019 | | | OMD | | +--------+ + + + + | 12/09/ | Refill | Rheumatology | Roxi, | Medication Refill | | 2020 | | | [place] | | +--------+ + + + + | 11/17/ | Refill | Cardiology | Andrade Hobbs, | Medication Refill | | 2020 | | | MD | (Clopidogrel) | +--------+ + + + + from [...] | + + Last Filed Vital Signs + [...] | | | | | | [place] [address] | | | | | | [phone] | | | | | | | | +--------+---------+ + + + | 04/05/ | Office | Cardiology | Andrade Hobbs, | | 2019 | Visit | | MD Curtis ESPARZA | | | | | | [place] | | | | | | [address] | | | | | | | | +--------+---------+ + + + + + + + + | Health Maintenance | Due Date | Last Done | Comments | + + + + + | Vaccine: | | | | | Dtap/Tdap/Td (1 - | 5 | | | | Tdap) | | | | + + + + + | Vaccine: Zoster (1 | | | | | of 2) | 4 | | | + + + + + | Vaccine: | | | | | Pneumococcal 65+ (1 | 9 | | | | of 2 - PCV13) | | | | + + + + + | Adult Annual | | | | | Wellness Visit | 9 | | | + + + + + | Vaccine: Influenza | | | | | (Season Ended) | 0 | | | + + [...] | | 02/26/ | [id number] | | [id number]: Qty: 1 | c | Eye | - [facility] | | 2023 | 21.0 | | on 08/06/2019 by Johanna, | | | | | | /[id number] | | Esequiel John MD at [facility] | | | | | | [id number] | | [facility] | | | | | | / | | CENTER | | | | | | | + +--------+--------+ +--------+--------+--------+ Results Not on filefrom Last 3 Months [...] +--------+ +---------+--------+ | BCBS | BCBS | [id number] | 09/29/19 | | | PPO | | | FEDERA | | 02-Pre | | | | | | L FEP | | sent | | | | + +--------+ +--------+ +---------+--------+ | MEDICARE | MEDICA | [id number] | 05/30/19 | [phone] | | Medica | | | RE | | 96-Pre | 5 | | re | | | PART A | | sent | | | | | | AND B | | | | | | + +--------+ +--------+ +---------+--------+ | MEDICARE | MEDICA | [id number] | 05/30/19 | [phone] | | Medica | | | RE | | 96-Pre | 5 | | re | | | PART A | | sent | | | | | | AND B | | | | | | + +--------+ +--------+ +---------+--------+ | BCBS | BCBS | [id number] | 09/29/19 | | | PPO | [...] sonny | | | 0 (Home) | [phone] | + +--------+ +--------+ + + | Deep Ulloa | Person | Self | [birth year] | [address] | | | al/Fam | | [phone] | [phone] | [place], [place] | | | sonny | | | 0 (Home) | [phone] | + +--------+ +--------+ + + Advance Directives + + + + + | Type | Date Recorded | Patient | Explanation | | | | Busperson | | + + + + + | Power of | | | | | [employer] Installer | | | | + + + [...]
--- OUTSIDE RECORDS SUMMARY | ~2020-02-05 | XMS | Encounter Summary ---
Demographics + + + | Address | [address] | | | [place] [address] | + + + | Home Phone | | + + + | Preferred Language | Unknown | + + + | Marital Status | | + + + | Scientologist Affiliation | 1077 | + + + | Race | Unknown | + + + | Ethnic Group | Unknown | + + + Author + + + | Author | [facility] | | | and [place] | + + + | Organization | [facility] | | [...] [place] | | | | | [address] | | + + + + + | Arin Ulloa | ECON | Unknown | | + + + + + Care Team Providers + +------+ + | Care Customer Relations Coordinator Name | Role | Phone | + +------+ + PCP | Unavailable | + +------+ + Encounter Details +--------+ + + + + | Date | Type | Department | Care Team | Description | +--------+ + + + + | 07/17/ | Hospital | [facility] | Abram Templeton MD | | | 1999 | Encounter | [facility] | [address] | | | | | [address] | [place], [place] | | | | | [place], [place] | [phone] | | | | | [address] | | | | | | [phone] | | | +--------+ + + + [...] | | | | | [place] [address] | | | | | | [phone] | | | | | | | | +--------+---------+ + + + | 04/05/ | Office | Cardiology | Andrade Hobbs, | | | 2019 | Visit | | MD Curtis ESPARZA | | | | | | [place] | | | | | | [id number] | | | | | | | | +--------+---------+ + + + documented as of this encounter Visit Diagnoses Not on filedocumented in this encounter"
--- OUTSIDE RECORDS SUMMARY | ~2020-02-05 | XMS | Encounter Summary ---
Demographics + + + | Address | [address] | | | [place] [address] | + + + | Home Phone | | + + + | Preferred Language | Unknown | + + + | Marital Status | | + + + | Amish Affiliation | 1077 | + + + | Race | Unknown | + + + | Ethnic Group | Unknown | + + + Author + + + | Author | [facility] | | | and [place] | + + + | Organization | [facility] | | [...] [place] | | | | | [address] | | + + + + + | Arin Ulloa | ECON | Unknown | | + + + + + Care Team Providers + +------+ + | Care Load Blocker Name | Role | Phone | + +------+ + PCP | Unavailable | + +------+ + Encounter Details +--------+ + + + + | Date | Type | Department | Care Team | Description | +--------+ + + + + | 04/24/ | Hospital | [facility] [address] | Derrek Darnell | | | 2000 | Encounter | DEBRA GENERIC | MD Zack Princeton | | | | | CONVERSION | [facility] | | | | | DEPARTMENT [address] | [address] | | | | | [facility] | Road [place], [place] | | | | | [place], [place] | [id number] | | | | | [address] | | | | | | [phone] | | | +--------+ + + + [...] | | | | | [place] [address] | | | | | | [phone] | | | | | | | | +--------+---------+ + + + | 04/05/ | Office | Cardiology | Andrade Hobbs, | | | 2019 | Visit | | MD Curtis ESPARZA | | | | | | [place] | | | | | | [id number] | | | | | | | | +--------+---------+ + + + documented as of this encounter Visit Diagnoses Not on filedocumented in this encounter"
--- OUTSIDE RECORDS SUMMARY | ~2020-02-05 | XMS | Encounter Summary ---
Demographics + + + | Address | [address] | | | [place] [address] | + + + | Home Phone | | + + + | Preferred Language | Unknown | + + + | Marital Status | | + + + | Gnosticist Affiliation | 1077 | + + + | Race | Unknown | + + + | Ethnic Group | Unknown | + + + Author + + + | Author | [facility] | | | and [place] | + + + | Organization | [facility] | | | [...] [place] | | | | | [address] | | + + + + + | Arin Ulloa | ECON | Unknown | | + + + + + Care Team Providers + +------+ + | Care Shell Core And Molding Supervisor Name | Role | Phone | + +------+ + | Fabricio Bah | PCP | | | MD | | | + +------+ + Encounter Details +--------+ + + + + | Date | Type | Department | Care Team | Description | +--------+ + + + + | 10/14/ | Orders Only | [facility] | Andrade Hobbs, | | | 2019 | | CARDIOLOGY CARMEN | [address] | | | | | [address] | [place], [place] | | | | | [place], [place] | [address] | | | | | [address] | | | | | | [phone] | | | +--------+ + + + [...] | | | | | [place] [address] | | | | | | [phone] | | | | | | | | +--------+---------+ + + + | 04/05/ | Office | Cardiology | Andrade Hobbs | | | 2019 | Visit | | MD Curtis ESPARZA | | | | | | [place] | | | | | | [address] | | | | | | | | +--------+---------+ + + + documented as of this encounter Visit Diagnoses Not on filedocumented in this encounter"
--- OUTSIDE RECORDS SUMMARY | ~2020-02-05 | XMS | Encounter Summary ---
Demographics + + + | Address | [address] | | | [place] [address] | + + + | Home Phone | | + + + | Preferred Language | Unknown | + + + | Marital Status | | + + + | Restoration Affiliation | 1077 | + + + | Race | Unknown | + + + | Ethnic Group | Unknown | + + + Author + + + | Author | [facility] | | | and [place] | + + + | Organization | [facility] | | | [...] [place] | | | | | [address] | | + + + + + | Arin Ulloa | ECON | Unknown | | + + + + + Care Team Providers + +------+ + | Care Private Detective Name | Role | Phone | + +------+ + | Fabricio Bah | PCP | | | MD | | | + +------+ + Encounter Details +--------+ + + + + | Date | Type | Department | Care Team | Description | +--------+ + + + + | 10/28/ | Orders Only | [facility] | Andrade Hobbs, | | | 2019 | | CARDIOLOGY CARMEN | [address] | | | | | [address] | [place], [place] | | | | | [place], [place] | [address] | | | | | [address] | | | | | | [phone] | | | +--------+ + + + [...] | | | | | [place] [address] | | | | | | [phone] | | | | | | | | +--------+---------+ + + + | 04/05/ | Office | Cardiology | Andrade Hobbs | | | 2019 | Visit | | MD Curtis ESPARZA | | | | | | [place] | | | | | | [address] | | | | | | | | +--------+---------+ + + + documented as of this encounter Visit Diagnoses Not on filedocumented in this encounter"
--- OUTSIDE RECORDS SUMMARY | ~2020-02-05 | XMS | Encounter Summary ---
Demographics + + + | Address | [address] | | | [place] [address] | + + + | Home Phone | | + + + | Preferred Language | Unknown | + + + | Marital Status | | + + + | Druze Affiliation | 1077 | + + + [...] [place] | | | | | [address] | | + + + + + | Arin Ulloa | ECON | Unknown | | + + + + + Care Team Providers + +------+ + | Care Mold Technician Name | Role | Phone | + +------+ + PCP | Unavailable | + +------+ + Encounter Details +--------+ + + + + | Date | Type | Department | Care Team | Description | +--------+ + + + + | 03/21/ | Hospital | [facility] | Derrek Darnell | | | 1999 | Encounter | [facility] | MD Zack Hurley | | | | | [address] | [facility] | | | | | [place], [place] | [address] | | | | | [address] | Road [place], [place] | | | | | [phone] | [address] | | | | | [...] | | | | | [place] [address] | | | | | | [phone] | | | | | | | | +--------+---------+ + + + | 04/05/ | Office | Cardiology | Andrade Hobbs, | | | 2019 | Visit | | MD Curtis ESPARZA | | | | | | [place] | | | | | | [phone] | | | | | | | | +--------+---------+ + + + documented as of this encounter Visit Diagnoses Not on filedocumented in this encounter"
--- OUTSIDE RECORDS SUMMARY | ~2020-02-05 | XMS | Encounter Summary ---
Demographics + + + | Address | [address] | | | [place] [address] | + + + | Home Phone [...] [place] | | | | | [address] | | + + + + + | Arin Ulloa | ECON | Unknown | | + + + + + Care Team Providers + +------+ + | Care Skip Load Driver Name | Role | Phone | + +------+ + PCP | Unavailable | + +------+ + Encounter Details +--------+ + + + + | Date | Type | Department | Care Team | Description | +--------+ + + + + | 08/17/ | Hospital | [facility] | Tom Booth, | | | 1996 | Encounter | DEBRA STUART | MD [address] | | | | | CONVERSION | [address] | | | | | [address]PART[address] | [place] [address] | | | | | [place] | [phone] | | | | | [place] | | | | | | [address] | | | | | | [phone] | | | +--------+ + + + [...] | | | | | [place] [address] | | | | | | [phone] | | | | | | | | +--------+---------+ + + + | 04/05/ | Office | Cardiology | Andrade Hobbs, | | | 2019 | Visit | | MD Curtis ESPARZA | | | | | | [place] | | | | | | [address] | | | | | | | | +--------+---------+ + + + documented as of this encounter Visit Diagnoses Not on filedocumented in this encounter"
--- OUTSIDE RECORDS SUMMARY | ~2020-02-05 | XMS | Encounter Summary ---
Demographics + + + | Address | [address] | | | [place] [address] | + + + | Home Phone | | + + + | Preferred Language | Unknown | + + + | Marital Status | | + + + | Anabaptist Affiliation | 1077 | + + + [...] [place] | | | | | [address] | | + + + + + | Arin Ulloa | ECON | Unknown | | + + + + + Care Team Providers + +------+ + | Care Stop Attacher Name | Role | Phone | + [...] + + | 11/17/ | Refill | [facility] | Andrade Hobbs, | Medication Refill | | 2020 | | CARDIOLOGY [place] | MD Curtis ESPARZA | (Clopidogrel) | | | | [address] | [place], [place] | | | | | [place] [address] | [id number] | | | | | [place] | | | | | | [address] | | | | | | [phone] | | | +--------+--------+ + + + [...] | | | | | [place] [address] | | | | | | [phone] | | | | | | | | +--------+---------+ + + + | 04/05/ | Office | Cardiology | Andrade Hobbs, | | | 2019 | Visit | | MD Curtis ESPARZA | | | | | | [place] | | | | | | [phone] | | | | | | | | +--------+---------+ + + + documented as of this encounter Visit Diagnoses Not on filedocumented in this encounter"
--- OUTSIDE RECORDS SUMMARY | ~2020-02-05 | XMS | Encounter Summary ---
Demographics + + + | Address | [address] | | | [place] [address] | + + + | Home Phone | | + + + | Preferred Language | Unknown | + + + | Marital Status | | + + + | Denominational Affiliation | 1077 | + + + [...] [place] | | | | | [address] | | + + + + + | Arin Ulloa | ECON | Unknown | | + + + + + Care Team Providers + +------+ + | Care Rf Design Engineer Name | Role | Phone | + +------+ + PCP | Unavailable | + +------+ + Encounter Details +--------+ + + + + | Date | Type | Department | Care Team | Description | +--------+ + + + + | 08/17/ | Hospital | [facility] [facility] [address] | Tom Booth, | | | 1998 | Encounter | DEBRA STUART | MD [address] [facility] [facility] | | | | | CONVERSION | [address] | | | | | [address]PART[address] | [place] [address] | | | | | [place] | [phone] | | | | | [place] | | | | | | [address] | | | | | | [phone] | | | +--------+ + + + [...] | | | | | [place] [address] | | | | | | [phone] | | | | | | | | +--------+---------+ + + + | 04/05/ | Office | Cardiology | Andrade Hobbs, | | | 2019 | Visit | | MD Curtis ESPARZA | | | | | | [place] | | | | | | [address] | | | | | | | | +--------+---------+ + + + documented as of this encounter Visit Diagnoses Not on filedocumented in this encounter"
--- OUTSIDE RECORDS SUMMARY | ~2020-02-05 | XMS | Encounter Summary ---
Demographics + + + | Address | [address] | | | [place] [address] | + + + | Home Phone [...] [place] | | | | | [address] | | + + + + + | Arin Ulloa | ECON | Unknown | | + + + + + Care Team Providers + +------+ + | Care Managing Cognitive Engineer Name | Role | Phone | + +------+ + | Fabricio Bah | PCP | | | MD | | | + +------+ + Encounter Details +--------+ + + + + | Date | Type | Department | Care Team | Description | +--------+ + + + + | 10/23/ | Orders Only | [facility] | Roxi, | | | 2016 | | RHEUMATOLOGY [address] | [address] | | | | | [address] | [address] | | | | | [place], [place] | [place] [address] | | | | | [address] | [phone] | | | | | [phone] | | | +--------+ + + + [...] | | | | | [place] [address] | | | | | | [phone] | | | | | | | | +--------+---------+ + + + | 04/05/ | Office | Cardiology | Andrade Hobbs, | | | 2019 | Visit | | MD Curtis ESPARZA | | | | | | [place] | | | | | | [address] | | | | | | | [...]
--- OUTSIDE RECORDS SUMMARY | ~2020-02-05 | XMS | Encounter Summary ---
Demographics + + + | Address | [address] | | | [place] [address] | + + + | Home Phone | | + + + | Preferred Language | Unknown | + + + | Marital Status | | + + + | Cheondoism Affiliation | 1077 | + + + | Race | Unknown | + + + | Ethnic Group | Unknown | + + + Author + + + | Author | [facility] | | | and [place] | + + + | Organization | [facility] | | | and [...] [place] | | | | | [address] | | + + + + + | Arin Ulloa | ECON | Unknown | | + + + + + Care Team Providers + +------+ + | Care Ornamenter Hand Name | Role | Phone | + +------+ + PCP | Unavailable | + +------+ + Encounter Details +--------+ + + + + | Date | Type | Department | Care Team | Description | +--------+ + + + + | 06/09/ | Hospital | [facility] | Anthony Taylor, | | | 1999 | Encounter | DEBRA MEEK | [address] | | | | | [address] | [place], [place] | | | | | [place], [place] | [id number] | | | | | [address] | | | | | | [phone] | | | +--------+ + + + [...] | | | | | [place] [address] | | | | | | [phone] | | | | | | | | +--------+---------+ + + + | 04/05/ | Office | Cardiology | Andrade Hobbs, | | | 2019 | Visit | | MD Curtis ESPARZA | | | | | | [place] | | | | | | [address] | | | | | | | | +--------+---------+ + + + documented as of this encounter Visit Diagnoses Not on filedocumented in this encounter"
--- OUTSIDE RECORDS SUMMARY | ~2020-02-05 | XMS | Encounter Summary ---
Demographics + + + | Address | [address] | | | [place] [address] | + + + | Home Phone [...] + + | Author | [facility] | | | and [place] | + + + | Organization | [facility] | | | [...] [place] | | | | | [address] | | + + + + + | Arin Ulloa | ECON | Unknown | | + + + + + Care Team Providers + +------+ + | Care Geologist Petroleum Name | Role | Phone | + +------+ + PCP | Unavailable | + +------+ + Encounter Details +--------+ + + + + | Date | Type | Department | Care Team | Description | +--------+ + + + + | 04/07/ | Hospital | [facility] | Conversion | Diagnosis unknown | | 2018 | Encounter | CONVERSION [address] | Transaction, | | | | | [address] | Provider Unknown | | | | | [place], [place] | [phone] | | | | | [address] | | | | | | [phone] | | | +--------+ + + + [...] + + documented as of this encounter Medications at Time of Discharge [...] | | | | | | [place] [address] | | | | | | [phone] | | | | | | | | +--------+---------+ + + + | 04/05/ | Office | Cardiology | Andrade Hobbs, | | | 2019 | Visit | | MD Curtis ESPARZA | | | | | | [place] | | | | | | [address] | | | | | | | | +--------+---------+ + + + documented as of this encounter Procedures + +--------+ + + + | Procedure Name | Priori | Date/Time | Associated Diagnosis | Comments | | | ty | | | | + +--------+ + + + | XR CHEST 1 VIEW | Routin | 04/07/2018 | | Results for this | | | e | 7:52 PM | | procedure are in the | | | | PDT | | results section. | + +--------+ + + + documented in this encounter Results XR Chest 1 Vw (04/07/2018 7:52 PM PDT) + + | Specimen | + + | | + + + + + | Narrative | Performed At | + + + | This is a non-reportable procedure without a radiologist report and | | | is used for image storage only | | + + + + + | Procedure Note | + + | Reginaldo Valencia - 05/12/2019 5:53 AM PDT This is a non-reportable procedure | | without a radiologist report and isused for image storage only | + + documented in this encounter Visit Diagnoses + + | Diagnosis | + + | Diagnosis unknown Other unknown and unspecified cause of morbidity or mortality | + + documented in this encounter"
--- OUTSIDE RECORDS SUMMARY | ~2020-02-05 | XMS | Encounter Summary ---
Demographics + + + | Address | [address] | | | [place] [address] | + + + | Home Phone | | + + + | Preferred Language | Unknown | + + + | Marital Status | | + + + | Bahai Affiliation | 1077 | + + + | Race | Unknown | + + + | Ethnic Group | Unknown | + + + Author + + + | Author | [facility] | | | and [place] | + + + | Organization | [facility] | | [...] [place] | | | | | [address] | | + + + + + | Arin Ulloa | ECON | Unknown | | + + + + + Care Team Providers + +------+ + | Care Academic Affairs Dean Name | Role | Phone | + +------+ + | Fabricio Bah | PCP | | | MD | | | + +------+ + Encounter Details +--------+ + + + + | Date | Type | Department | Care Team | Description | +--------+ + + + + | 04/07/ | Orders Only | [facility] | Conversion | | | 2018 | | CONVERSION [address] | Transaction, | | | | | [address] | Provider Unknown | | | | | [facility] | [phone] | | | | | [address] | | | | | | [phone] | | | +--------+ + + + [...] | | | | | | [address] | | | | | | [place] [address] | | | | | | [phone] | | | | | | | | +--------+---------+ + + + | 04/05/ | Office | Cardiology | Andrade Hobbs, | | | 2019 | Visit | | MD Curtis ESPARZA | | | | | | [place] | | | | | | [address] | | | | | | | | +--------+---------+ + + + documented as of this encounter Visit Diagnoses Not on filedocumented in this encounter"
--- OUTSIDE RECORDS SUMMARY | ~2020-02-05 | XMS | Encounter Summary ---
Demographics + + + | Address | [address] | | | [place] [address] | + + + | Home Phone | | + + + | Preferred Language | Unknown | + + + | Marital Status | | + + + | Baptist Affiliation | 1077 | + + + | Race | Unknown | + + + | Ethnic Group | Unknown | + + + Author + + + | Author | [facility] | | | and [place] | + + + | Organization | [facility] | | | [...] [place] | | | | | [address] | | + + + + + | Arin Ulloa | ECON | Unknown | | + + + + + Care Team Providers + +------+ + | Care Avp Name | Role | Phone | + +------+ + | Fabricio Bah | PCP | | | MD | | | + +------+ + Encounter Details +--------+ + + + + | Date | Type | Department | Care Team | Description | +--------+ + + + + | 08/02/ | Orders Only | [facility] | Tejinder Lau, | Other custodial | | 2019 | | [address] | Digital Sales Assistant | (current) drug | | | | [place] | | therapy; Rheumatoid | | | | [address] | | arthritis of | | | | [phone] | | multiple sites | | | [...] | | | | | [place] [address] | | | | | | [phone] | | | | | | | | +--------+---------+ + + + | 04/05/ | Office | Cardiology | Andrade Hobbs, | | | 2019 | Visit | | MD Curtis ESPARZA | | | | | | [place] | | | | | | [address] | | | | | | | | +--------+---------+ + + + documented as of this encounter Procedures + +--------+ + + + | Procedure Name | Priori | Date/Time | Associated Diagnosis | Comments | | | ty | | | | + +--------+ + + + | SEDIMENTATION RATE | Routin | 08/02/2019 | Other custodial | Results for this | | | [...] WITH | Routin | 08/02/2019 | Other custodial | Results for this | | DIFFERENTIAL [...] COMPREHENSIVE | Routin | 08/02/2019 | Other custodial | Results for this | | METABOLIC [...] | | | Absolute | performed at [facility];[address] | LAB | | | | [place] | | [facility] | | | | [address];[place] [address] | | LABORATORY | | + + + + + + + + | Specimen | + + | Blood | + + + + + + + | Performing | Address | City/State/Zipcode | Phone Number | | Organization | | | | + + + + + | REFERENCE LAB | [address] | [place] | [phone] | | [facility] | [address] | [address] | | | LABORATORY | | | | + + + + + | REFERENCE LAB | [address] | [place] | | | [facility] | Bl[address] | [address] | | | LABORATORY | | | [...] | | | | | performed at [facility];[address] | | | | | | [facility] | | | | | | [facility];[place] [address] | | | | | | | | | | + + + + + + + + | Specimen | + + | Blood | + + + + + + + | Performing | Address | City/State/Zipcode | Phone Number | | Organization | | | | + + + + + | REFERENCE LAB | [address] [place] [address] | [place] | [phone] | | [facility] | Bl[address] | [address] | | | LABORATORY | | | | + + + + + | REFERENCE LAB | [address] [place] [address] | [place] | | | [facility] | [address] | [address] | | | LABORATORY | | | [...] | | [facility] | | | | Blvd;[place] [address] | | LABORATORY | | + + + + + + + + | Specimen | + + | Blood | + + + + + + + | Performing | Address | City/State/Zipcode | Phone Number | | Organization | | | | + + + + + | REFERENCE LAB | [address] [place] [address] | [place] | [phone] | | [facility] | [address] | [address] | | | LABORATORY | | | | + + + + + | REFERENCE LAB | [address] [place] [address] | [place], [place] | | | [facility] | Bl[address] 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
--- OUTSIDE RECORDS SUMMARY | ~2020-02-05 | XMS | Encounter Summary ---
Demographics + + + | Address | [address] | | | [place] [address] | + + + | Home Phone | | + + + | Preferred Language | Unknown | + + + | Marital Status | | + + + | Mormon Affiliation | 1077 | + + + | Race | Unknown | + + + | Ethnic Group | Unknown | + + + Author + + + | Author | [facility] | | | and [place] | + + + | Organization | [facility] | | [...] [place] | | | | | [address] | | + + + + + | Arin Ulloa | ECON | Unknown | | + + + + + Care Team Providers + +------+ + | Care Service Or Work Dispatcher Name | Role | Phone | + +------+ + | Fabricio Bah | PCP | | | MD | | | + +------+ + Encounter Details +--------+ + + + + | Date | Type | Department | Care Team | Description | +--------+ + + + + | 05/08/ | Orders Only | [facility] | Chasity Vanegas | 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 | | | | [address] | [address] [place], [place] | (HCC); Essential | | | | [place], [place] | [address] | (primary) | | | | [address] | | hypertension; | | | | [phone] | | Atherosclerosis of | | | [...] | | | | | heart failure ([facility]); | | | | | | Other m[facility] | | | | | | (current) [...] 2019 | Visit | | CHERELLE Morris [address] | | | | | | [address] | | | | | | [place] [address] | | | | | | [phone] | | | | | | | | +--------+---------+ + + + | 04/05/ | Office | Cardiology | Anjel Andrade, | | | 2019 | Visit | | MD Curtis ESPARZA | | | | | | [place] | | | | | | [address] | | | | | | | [...] with | Lab | Routin | Other m[facility] | 3 Occurrences | | Differential | [...] Comprehensive | Lab | Routin | Other m[facility] | 3 Occurrences | | Metabolic Panel [...] Rate | Lab | Routin | Other m[facility] | 3 Occurrences | | | | [...] | | [facility] | | | | Blvd;[place] [address] | | LABORATORY | | + + + + + + + + | Specimen | + + | Blood | + + + + + + + | Performing | Address | City/State/Zipcode | Phone Number | | Organization | | | | + + + + + | REFERENCE LAB | [address] [place] [address] | [place], [place] | [phone] | | [facility] | Bl[address] | [address] | | | LABORATORY | | | | + + + + + | REFERENCE LAB | [address] [place] [address] | [place], [place] | | | [facility] | [address]. | [address] | | | LABORATORY | | | [...] | | | | | | MDRD IDME traceable | | | | | | equation.Testing | | | | | | performed at [facility];[address] | | | | | [facility] | | | | | | [facility] [address] | | | | | | | | | | + + + + + + + + | Specimen | + + | Blood | + + + + + + + | Performing | Address | City/State/Zipcode | Phone Number | | Organization | | | | + + + + + | REFERENCE LAB | [address] | [place] | [phone] | | [facility] | [address] | [address] | | | LABORATORY | | | | + + + + + | REFERENCE LAB | [address] | [place] | | | [facility] | Bl[address] | [address] | | | LABORATORY | | | [...] | | | Absolute | performed at [facility];[address] | [address] | LAB | | | | [place] | | [facility] | | | | [address];[place] [address] | | LABORATORY | | + + + + + + + + | Specimen | + + | Blood | + + + + + + + | Performing | Address | City/State/Zipcode | Phone Number | | Organization | | | | + + + + + | REFERENCE LAB | [address] | [place] | [phone] | | [facility] | [address] | [address] | | | LABORATORY | | | | + + + + + | REFERENCE LAB | [address] | [place] | | | [facility] | [address] 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
--- OUTSIDE RECORDS SUMMARY | ~2020-02-05 | XMS | Encounter Summary ---
Demographics + + + | Address | [address] | | | [place] [address] | + + + | Home Phone [...] [place] | | | | | [address] | | + + + + + | Arin Ulloa | ECON | Unknown | | + + + + + Care Team Providers + +------+ + | Care Flight Kitchen Manager Name | Role | Phone | + +------+ + PCP | Unavailable | + +------+ + Encounter Details +--------+ + + + + | Date | Type | Department | Care Team | Description | +--------+ + + + + | 04/24/ | Hospital | [address] | Derrek Darnell | | | 2000 | Encounter | DEBRA GENERIC | MD Zack [place] | | | | | CONVERSION | [facility] | | | | | DEPARTMENT [address] | [address] | | | | | [facility] | Road [place], [place] | | | | | [place], [place] | [id number] | | | | | [address] | | | | | | [phone] | | | +--------+ + + + [...] | | | | | [place] [address] | | | | | | [phone] | | | | | | | | +--------+---------+ + + + | 04/05/ | Office | Cardiology | Andrade Hobbs, | | | 2019 | Visit | | MD Curtis ESPARZA | | | | | | [place] | | | | | | [id number] | | | | | | | | +--------+---------+ + + + documented as of this encounter Visit Diagnoses Not on filedocumented in this encounter"
--- OUTSIDE RECORDS SUMMARY | ~2020-02-05 | XMS | Encounter Summary ---
Demographics + + + | Address | [address] | | | [place] [address] | + + + | Home Phone [...] [place] | | | | | [address] | | + + + + + | Arin Ulloa | ECON | Unknown | | + + + + + Care Team Providers + +------+ + | Care Mainspring Torque Tester Name | Role | Phone | + +------+ + | Fabricio Bah | PCP | | | MD | | | + +------+ + Encounter Details +--------+ + + + + | Date | Type | Department | Care Team | Description | +--------+ + + + + | 03/29/ | Orders Only | [facility] | Philly Hanna | | | 2019 | | RHEUMATOLOGY [address] | MD Richie [address] | | | | | [address] | [address] | | | | | [place] | [place] [address] | | | | | [address] | [phone] | | | | | [phone] | | | +--------+ + + + [...] | | | | | [place] [address] | | | | | | [phone] | | | | | | | | +--------+---------+ + + + | 04/05/ | Office | Cardiology | Andrade Hobbs, | | | 2019 | Visit | | MD Curtis ESPARZA | | | | | | [place] | | | | | | [address] | | | | | | | | +--------+---------+ + + + documented as of this encounter Visit Diagnoses Not on filedocumented in this encounter"
--- OUTSIDE RECORDS SUMMARY | ~2020-02-05 | XMS | Encounter Summary ---
Demographics + + + | Address | [address] | | | [place] [address] | + + + | Home Phone [...] [place] | | | | | [address] | | + + + + + | Arin Ulloa | ECON | Unknown | | + + + + + Care Team Providers + +------+ + | Care Research Animal Attendant Name | Role | Phone | [...] + + | 07/20/ | Refill | [facility] | Andrade Hobbs, | Medication Refill | | 2019 | | CARDIOLOGY CARMEN | MD Curtis ESPARZA | | | | | [address] | [place], [place] | | | | | [place], [place] | [address] | | | | | [address] | | | | | | [phone] | | | +--------+--------+ + + + [...] 2019 | Visit | | CHERELLE [address] | | | | | | [address] | | | | | | [place] [address] | | | | | | [phone] | | | | | | | | +--------+---------+ + + + | 04/05/ | Office | Cardiology | Andrade Hobbs, | | | 2019 | Visit | | MD Curtis ESPARZA | | | | | | [place] | | | | | | [address] | | | | | | | | +--------+---------+ + + + documented as of this encounter Visit Diagnoses Not on filedocumented in this encounter"
--- OUTSIDE RECORDS SUMMARY | ~2020-02-05 | XMS | Encounter Summary ---
Demographics + + + | Address | [address] | | | [place] [address] | + + + | Home Phone | | + + + | Preferred Language | Unknown | + + + | Marital Status | | + + + | Uatsdin Affiliation | 1077 | + + + | Race | Unknown | + + + | Ethnic Group | Unknown | + + + Author + + + | Author | [facility] | | | and [place] | + + + | Organization | [facility] | | | [...] [place] | | | | | [address] | | + + + + + | Arin Ulloa | ECON | Unknown | | + + + + + Care Team Providers + +------+ + | Care Infection Preventionist Name | Role | Phone | + +------+ + PCP | Unavailable | + +------+ + Encounter Details +--------+ + + + + | Date | Type | Department | Care Team | Description | +--------+ + + + + | 07/20/ | Hospital | [facility] | Derrek Darnell | | | 1997 | Encounter | DEBRA LABORATORY | Zack Wallace | | | | | [address] | [facility] | | | | | [place], [place] | [address] | | | | | [address] | Road [place], [place] | | | | | [phone] | [address] | | | | | [...] | | | | | [place] [address] | | | | | | [phone] | | | | | | | | +--------+---------+ + + + | 04/05/ | Office | Cardiology | Andrade Hobbs, | | | 2019 | Visit | | MD Curtis ESPARZA | | | | | | [place] | | | | | | [id number] | | | | | | | | +--------+---------+ + + + documented as of this encounter Visit Diagnoses Not on filedocumented in this encounter"
--- OUTSIDE RECORDS SUMMARY | ~2020-02-05 | XMS | Encounter Summary ---
Demographics + + + | Address | [address] | | | [place] [address] | + + + | Home Phone [...] [place] | | | | | [address] | | + + + + + | Arin Ulloa | ECON | Unknown | | + + + + + Care Team Providers + +------+ + | Care Timers Inspector Name | Role | Phone | + +------+ + PCP | Unavailable | + +------+ + Encounter Details +--------+ + + + + | Date | Type | Department | Care Team | Description | +--------+ + + + + | 08/09/ | Hospital | [facility] | Derrek Darnell | | | 1996 | Encounter | DEBRA GENERIC | MD Zack [place] | | | | | CONVERSION | [facility] | | | | | DEPARTMENT [address] | [address] | | | | | [facility] | Road [place], [place] | | | | | [place], [place] | [id number] | | | | | [address] | | | | | | [phone] | | | +--------+ + + + [...] | | | | | [place] [address] | | | | | | [phone] | | | | | | | | +--------+---------+ + + + | 04/05/ | Office | Cardiology | Andrade Hobbs, | | | 2019 | Visit | | MD Curtis ESPARZA | | | | | | [place] | | | | | | [phone] | | | | | | | | +--------+---------+ + + + documented as of this encounter Visit Diagnoses Not on filedocumented in this encounter"
--- OUTSIDE RECORDS SUMMARY | ~2020-02-05 | XMS | Encounter Summary ---
Demographics + + + | Address | [address] | | | [place] [address] | + + + | Home Phone [...] + | Author | [facility] | | | and [place] | + + + | Organization | [facility] | | | [...] [place] | | | | | [address] | | + + + + + | Arin Ulloa | ECON | Unknown | | + + + + + Care Team Providers + +------+ + | Care Liberal Arts And Humanities Chair Name | Role | Phone | + +------+ + PCP | Unavailable | + +------+ + Encounter Details +--------+ + + + + | Date | Type | Department | Care Team | Description | +--------+ + + + + | 08/04/ | Hospital | [address] | Derrek Darnell | | | 1998 | Encounter | DEBRA GENERIC | MD Zack [place] | | | | | CONVERSION | [facility] | | | | | DEPARTMENT [address] | [address] | | | | | [facility] | Road [place], [place] | | | | | [place], [place] | [id number] | | | | | [address] | | | | | | [phone] | | | +--------+ + + + [...] | | | | | [place] [address] | | | | | | [phone] | | | | | | | | +--------+---------+ + + + | 04/05/ | Office | Cardiology | Andrade Hobbs, | | | 2019 | Visit | | MD Curtis ESPARZA | | | | | | [place] | | | | | | [phone] | | | | | | | | +--------+---------+ + + + documented as of this encounter Visit Diagnoses Not on filedocumented in this encounter"
--- OUTSIDE RECORDS SUMMARY | ~2020-02-05 | XMS | Encounter Summary ---
Demographics + + + | Address | [address] | | | [place] [address] | + + + | Home Phone | | + + + | Preferred Language | Unknown | + + + | Marital Status | | + + + | Caodaism Affiliation | 1077 | + + + | Race | Unknown | + + + | Ethnic Group | Unknown | + + + Author + + + | Author | [facility] | | | and [place] | + + + | Organization | [facility] | | | and [place] | + + + | Address | Unknown | + + + | Phone | Unavailable | + + + Support + + + + + | Name | Relationship | Address | Phone | + + + + + | Aleida Ulloa | ECON | [address] | | | | | [place] | | | | | [address] | | + + + + + | Arin Ulloa | ECON | Unknown | | + + + + + Care Team Providers + +------+ + | Care Fashion Designer Name | Role | Phone | + +------+ + | Fabricio Bah | PCP | | | MD | | | + +------+ + Reason for Visit +--------+ + | Reason | Comments | +--------+ + | Other | Called for Virtual Visit | +--------+ + Encounter Details +--------+ + + + + | Date | Type | Department | Care Team | Description | +--------+ + + + + | 01/26/ | Telephone | [facility] | Roxi, | Other (Called for | | 2019 | | RHEUMATOLOGY [address] | [address] | Virtual Visit) | | | | [address] | [address] | | | | | [place] | [place] [address] | | | | | [address] | [phone] | | | | | [phone] | | | +--------+ + + + [...] | | | | | [place] [address] | | | | | | [phone] | | | | | | | | +--------+---------+ + + + | 04/05/ | Office | Cardiology | Andrade Hobbs, | | | 2019 | Visit | | MD Curtis ESPARZA | | | | | | [place] | | | | | | [phone] | | | | | | | | +--------+---------+ + + + documented as of this encounter Visit Diagnoses Not on filedocumented in this encounter"
--- OUTSIDE RECORDS SUMMARY | ~2020-02-05 | XMS | Encounter Summary ---
Demographics + + + | Address | [address] | | | [place] [address] | + + + | Home Phone | | + + + | Preferred Language | Unknown | + + + | Marital Status | | + + + | Islam Affiliation | 1077 | + + + | Race | Unknown | + + + | Ethnic Group | Unknown | + + + Author + + + | Author | [facility] | | | and [place] | + + + | Organization | [facility] | | | [...] [place] | | | | | [address] | | + + + + + | Arin Ulloa | ECON | Unknown | | + + + + + Care Team Providers + +------+ + | Care Meat Slicer Name | Role | Phone | + [...] W/ | | | | [address] | [place] | VITRECTOMY | | | | [place] | [place] [address] | | | | | [address] | [phone] | | | | | [phone] | | | +--------+---------+ + + + [...] symptoms, immediately call your eye doctor or [facility] at (dial "9" after hours [...] [address] | | | | | | [place] [address] | | | | | | [phone] | | | | | | | | +--------+---------+ + + + | 04/05/ | Office | Cardiology | Andrade Hobbs, | | | 2019 | Visit | | MD Curtis ESPARZA | | | | | | [place] | | | | | | [address] | | | | | | | [...] One week or | | | longer, [id number]-[id number]-[id number] use of | | | at least [...] One week or longer, | | | btfryc-hif-knipy use of at least | | | [...]
--- OUTSIDE RECORDS SUMMARY | ~2020-02-05 | XMS | Encounter Summary ---
Demographics + + + | Address | [address] | | | [place] [address] | + + + | Home Phone | | + + + | Preferred Language | Unknown | + + + | Marital Status | | + + + | Pentecostal Affiliation | 1077 | + + + | Race | Unknown | + + + | Ethnic Group | Unknown | + + + Author + + + | Author | [facility] | | | and [place] | + + + | Organization | [facility] | | | [...] [place] | | | | | [address] | | + + + + + | Arin Ulloa | ECON | Unknown | | + + + + + Care Team Providers + +------+ + | Care Information Systems Project Manager Name | Role | Phone | + +------+ + | Fabricio Bah | PCP | | | MD | | | + +------+ + Encounter Details +--------+ + + + + | Date | Type | Department | Care Team | Description | +--------+ + + + + | 08/06/ | Hospital | [facility] | Esequiel Spencer | | | 2019 | Encounter | MED CTR OR INTRA OP | MD Al[address] | | | | | [address] | [place] | | | | | [place] | [place] [address] | | | | | [address] | [phone] | | | | | [phone] | | | +--------+ + + + [...] symptoms, immediately call your eye doctor or [facility] at (dial "9" after [...] | | | | | | [place] [address] | | | | | | [phone] | | | | | | | | +--------+---------+ + + + | 04/05/ | Office | Cardiology | Andrade Hobbs, | | | 2019 | Visit | | MD Curtis ESPARZA | | | | | | [place] | | | | | | [address] | | | | | | | [...] One week or | | | longer, gmqnla-nbk-ngvis use of | | | at least [...] One week or longer, | | | nvkfkj-iun-dsjpc use of at least | | | [...]
--- OUTSIDE RECORDS SUMMARY | ~2020-02-05 | XMS | Encounter Summary ---
Demographics + + + | Address | [address] | | | [place] [address] | + + + | Home Phone | | + + + | Preferred Language | Unknown | + + + | Marital Status | | + + + | Jainism Affiliation | [id number] | + + + [...] [place] | | | | | [id number] | | + + + + + | Arin Ulloa | ECON | Unknown | | + + + + + Care Team Providers + +------+ + | Care Tractor Crane Operator Name | Role | Phone | + +------+ + PCP | Unavailable | + +------+ + Encounter Details +--------+ + + + + | Date | Type | Department | Care Team | Description | +--------+ + + + + | 04/07/ | Hospital | [facility] | Wade Lake DO | | | 2018 - | Encounter | [facility] | [address] | | | | | CARE FLOOR [address] | [place] [address] | | | 04/13/ | | [address] | [phone] | | | 2017 | | [place], [place] | | | | | | [address] | | | | | | [phone] | | | +--------+ + + + [...] Discharge Summaries by John Herring MD at 04/13/18 0948 Author: John Herring MD Service: Hospitalist Author Type: Physician Filed: 04/13/18 1557 Date of Service: 04/13/1848 Status: Signed Program Development Manager: John Herring MD (Physician) Related Notes: Original Note by John Herring MD (Physician) filed at 04/13/18 1059 [facility] Service: Hospitalist Physician Discharge Summary Patient ID: Bayron Ulloa 1935 82 y.o. Admit date: 04/07/2018 Discharge date: 04/13/2018 Admitting Physician: Wade Lake DO Discharge Physician: John Herring MD Consultants: Treatment Team: Consulting Physician: Ry Scales MD Consulting Physician: Clau Ríos MD Admitting Provider: Wade Lake DO Primary [...] of present illness: came to ED at [facility] in [place], [place] today mckay use of sudden onset [...] patient's cardiac history and requested transfer to [facility] for further workup. 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 He used to follow with Dr Jenkins, who has now retired. He hasn't established care with a new cd mixer helper vicky borrego "everything's been going well." He [...] the RAM graft as well as the pinoleville artery. 7. Two saphenous vein grafts to [...] Lake on 04/07 Mr. Ulloa presented to [facility] on 04/07/2018 with chief diagnosis of a non-ST elevation AL in the context of rheumatoid arthritis (on [...] ramus, with extension of the thrombus to pinoleville ramus. Due t o extensive coronary artery [...] of EGD due to recent non-ST elevation AL. The patient did well with conservative therapy, [...] Hobbs (the patient to establish a new [facility] care with Dr. Hobbs) in [place] where the patient prefers to see cd mixer helper. T he patient lives in the [place] area. Throughout this hospitalization the patient was managed from the cardiology standpoint by Romero Scales, whose care and recommendations were greatly appreciated, along with Dr. Warren , who performed cardiac catheterization. At the present time the patient will not proceed with any endoscopic GI evaluation due to b eing high risk for any anesthesia-based procedures following his non-ST elevation AL [facility] ed. Prior to discharge patient was given K replacement 40 mEq po qday and daily dose 20 mEq per day was provided for the patient. Recommend to recheck BMP with electrolytes and CBC shanin g follow up visit in 1-2 weeks. Please note that : Patient was previously given prescription for Brilianta ( script was e- scripted to [facility] in [facility] ) by Dr. Warren but due to patient's GI blood loss this medication has been cancelled and the recommendation is for the patient to contin ue combination of ASA/Plavix for now. I personally called the pharmacy and talked to repres entjohan Layle who made specific notes to cancel this medication and [facility] This order / to cancel Brilinata was documented by the premium service representative in the [employer] system. Past Medical History: Past Medical History Diagnosis Date Coronary artery disease Osteoarthritis Rheumatoid arthritis (HCC) Past Surgical History Procedure Laterality Date CARDIAC SURGERY CHOLECYSTECTOMY CORONARY ARTERY BYPASS GRAFT HAND SURGERY Discharged Condition: Stable for discharge as stated above. Significant Diagnostic Studies: X-ray Chest 1 View Result Date: 04/07/2018 This is a non-reportable procedure without a radiologist report and is used for image [place] [employer] Riskalyze only Cl Left Heart Cath With Coronary [...] prepped and draped in the usual sterile [facility] ion. Timeout for patient safety was performed. One percent lidocaine was used for local an esthesia of the right groin. The right femoral artery was accessed using a micropuncture ne edle. There was a lot of scar in the femoral artery. We used a stiff wire and were able to advance the 6-Irish sheath. A 5-Irish FL4 catheter was advanced; however, unable to [...] ao rtic arch. Then I tried a 5-Irish AL1 catheter after again trying the FL5 catheter without success. Multiple angiographic views of the left coronary system were obtained. Then using the 5-Irish AL1 catheter, I engaged the vein graft [...] some fresh blood clots extending into the pinoleville ramus. Subsequently a 5-Irish FR4 catheter was advanced over the guidewire into the left ventricle. Left ventric ular pressures and pullback pressures were obtained. The 5-Irish FR4 catheter was used for selective engagement of the right coronary artery and angiographic views were obtained. Th e 5-Irish FR4 catheter was used for selective engagement of the left subclavian artery. Ex change length wire was advanced into the left subclavian artery and a 5-Irish RAM catheter was used for selective engagement of the RAM to LAD graft and multiple angiographic views were obtained. Given the large thrombus burden in all the vein grafts, I felt that PCI at t his point would carry a high risk of occlusion of the pinoleville vein graft with distal emboliza tion and high risk of no-reflow phenomenon, I decided to stop here and treat him medically w ith Integrilin and heparin. Subsequently the long sheath was exchanged for a short 6-Irish 11 cm sheath. Left femoral artery angiogram [...] the range of 99 perc ent. The pinoleville ramus intermedius is about a 2 to 2.5 mm vessel with fresh thrombus extendi ng just after the anastomotic site. There is TIMI3 flow, however, in this graft. 3. Two vei n grafts, likely to the right coronary artery, were occluded. 1. Severe 3-vessel pinoleville coronary artery disease with occluded right coronary [...] burden and extension of thrombus into the pinoleville ramus intermedius. 4. Occluded other vein grafts. [...] TV A Jason: 0.32 m/s TV Dec Dundy: 3.84 m/s2 TV Dec Time: 131.55 ms TV E Jason: 0.50 m/s TV E/A Ratio: 1.55 Spinning Doffer: XAVIER yarbrough y: Ry Korimerla Report Date/Time: 04-08-2018 10:14:18 1. This was [...] allor. LABS: Recent Labs Lab 04/13/18 0401 04/12/18 0426 04/11/18 0418 WBC 7.09 7.62 8.72 HGB 12.7* 13.4 13.2 HCT 36.2* 39.1 38.2* PLT 158 157 157 NEUTOPHILPCT 70.75 72.29 74.32 MONOPCT 9.50 7.65 8.49 Recent Labs Lab 04/13/18 0914 04/13/18 0401 04/12/18 0426 04/11/18 0418 NA -- 140 138 -- 142 [...] under care of the family Follow up: Fabricio Bah MD [address] [place] [address] Schedule an appointment as soon as possible for a visit in 1 week For hospitalization re-evaluation ; Andrade Hobbs MD [address] [place] [address] Schedule an appointment as soon as possible [...] These medications were sent to [facility] [facility] [place] - [address] [facility] [place] [address] aluminum-magnesium hydroxide-simethicone 200-200-20 MG/5ML Susp calcium carbonate [...] Progress Notes by Ry Scales MD at 04/13/181251 Author: Ry Scales MD Service: Cardiology Author Type: Physician Filed: 04/13/18 000 Date of Service: 04/13/181251 Status: Signed Program Development Manager: Ry Scales MD (Physician) [facility] Service: Cardiology Progress Note Hospital Day: LOS: [...] smaller Ramus with extension of thrombus to pinoleville ramus, PCI carry high risk of failure, [...] up with Dr. Hobbs on discharge in [place] on discharge. Code Status: Full Code Ry Scales MD 04/13/2018 onversion Pierre saction, Provider Unknown - 04/13/2018 11:08 AM PDTFormatting of this note might be differen t from the original. Nurse Progress Note by Say De Los Santos RN at 04/13/18 1108 Author: Say De Los Santos RN Service: (none) Author Type: Registered Nurse Filed: 04/13/18 1315 Date of Service: 04/13/18 1108 Status: Signed Program Development Manager: Say De Los Santos RN (Registered Nurse) Patient stable for discharge per Dr Herring. Medications and AVS reviewed with patient, all belongings accounted for. All questions answered. Reviewed importance of daily wts, blood pr essure and heart rate checks and appropriate administration of SL ntg. itzrime finch, Ry Wolf MD - 04/12/2018 10:33 PM PDT Progress Notes by Ry Scales MD at 04/12/182232 Author: Ry Scales MD Service: Cardiology Author Type: Physician Filed: 04/12/182234 Date of Service: 04/12/182232 Status: Signed Program Development Manager: Ry Scales MD (Physician) [facility] Service: Cardiology Progress Note Hospital Day: LOS: [...] sodium chloride (IV) 30 mL/hr at 04/09/18 3528 PRN Medications acetaminophen OR acetaminophen, aluminum-magnesium hydroxide-simethicone, [...] smaller Ramus with extension of thrombus to pinoleville ramus, PCI carry high risk of failure, [...] up with Dr. Hobbs on discharge in [place] on discharge. Code Status: Full Code Ry Scales MD 04/12/2018 Mindy Bolanos MD - 04/12/2018 9:00 AM PDTFormatting of this note might be different from the darleen floyd Progress Notes by John Herring MD at 04/12/18899 Author: John Herring MD Service: Hospitalist Author Type: Physician Filed: 04/12/181953 Date of Service: 04/12/18899 Status: Signed Program Development Manager: John Herring MD (Physician) Related Notes: Original Note by John Herring MD (Physician) filed at 04/12/18 1234 [facility] Service: Hospitalist Progress Note Pt: Bayron Ulloa AGE/SEX: 82 y.o. male : 1935 ROOM: 4440/[facility] " Chief complaint: chest pain History of present illness: came to ED at [facility] in [place], [place] today mckay use of sudden onset chest [...] patient's cardiac history and requested transfer to [facility] for further workup. 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 He used to follow with Dr Jenkins, who has now retired. He hasn't established care with a new cd mixer helper vicky borrego "everything's been going well." He [...] the RAM graft as well as the pinoleville artery. 7. Two saphenous vein grafts to [...] the next 24 hrs. Will further d/w cd mixer helper. Stool to be tested for heme occult ( first samples were discarded by the pt ). 04/11/18: No chest pain. He had 1 bowel movement today which was formed and brown without m selwyn or hematochezia. H and H remain stable. Appreciate Dr. Scales's and Dr. Trice Ríos's input and recommendations. For now we will [...] mood and affect. LABS: Recent Labs Lab 04/12/1842504/11/1841704/10/185 04/10/1841504/09/18 0245 WBC 7.62 8.72 -- -- 9.03 9.37 HGB 13.4 13.2 13.0* < > 12.3* 14.2 HCT 39.1 38.2* 38.9* < > 35.8* 41.0 PLT 157 157 -- -- 152 167 NEUTOPHILPCT 72.29 74.32 -- -- -- 78.82 MONOPCT 7.65 8.49 -- -- -- 8.52 < > = values in this interval not displayed. Recent Labs Lab 04/12/1842504/11/18 0918 04/11/1841704/10/18415 NA 138 -- 142 142 K 3.9 [...] radiologist report and is used for image [place] only Past Medical History Diagnosis Date Coronary artery disease Osteoarthritis Rheumatoid arthritis (HCC) Past Surgical History Procedure Laterality Date CARDIAC SURGERY CHOLECYSTECTOMY CORONARY ARTERY BYPASS GRAFT HAND SURGERY PROBLEM LIST Principal Problem: NSTEMI (non-ST elevated myocardial infarction) ([facility]) Active Problems: Rheumatoid arthritis of multiple sites with negative rheumatoid factor (HCC) History of acute myocardial infarction Hypertension CAD (coronary artery disease) Fatigue GI (gastrointestinal bleed) ASSESSMENT & PLAN 82-year-old male with history of coronary artery disease, previous CABG, rheumatoid arthrit is on chronic anti-inflammatory therapy, hypertension, who presents with the followin. Non-ST elevation AL with diffuse coronary artery disease with previous [...] Dr. Scales's and Dr. Warren's and Dr. Ríos's input and recommen dations. 2. Acute GI blood loss. No further episodes of melena or hematochezia. Hemoglobin and hem atocrit stable. Continue high-dose PPI. Appreciate Dr. Ríos's input and recomme ndations. 3. Hypertension. Continue [...] 04/11/182118 Date of Service: 04/11/182057 Status: Signed Program Development Manager: Ry Scales MD (Physician) [facility] Service: Cardiology Progress Note Hospital Day: LOS: [...] smaller Ramus with extension of thrombus to pinoleville ramus, PCI carry high risk of failure, [...] Status: Full Code Ry Scales MD 04/11/2018 Cici, Mindy Shin MD - 04/11/2018 8:26 AM PDTFormatting of this note might be different from the darleen floyd Progress Notes by John Herring MD at 04/11/18 08 Author: John Herring MD Service: Hospitalist Author Type: Physician Filed: 04/12/18 0855 Date of Service: 04/11/18825 Status: Signed Program Development Manager: John Herring MD (Physician) Related Notes: Original Note by John Herring MD (Physician) filed at 04/11/18 7420 [facility] Service: Hospitalist Progress Note Pt: Bayron Ulloa AGE/SEX: 82 y.o. male : 1935 ROOM: [address] [place] [address] " Chief complaint: chest pain History of present illness: came to ED at [facility] in [place], [place] today mckay use of sudden onset [...] patient's cardiac history and requested transfer to [facility] for further workup. 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 He used to follow with Dr Jenkins, who has now retired. He hasn't established care with a new cd mixer helper vicky borrego "everything's been going well." He [...] the RAM graft as well as the pinoleville artery. 7. Two saphenous vein grafts to [...] 13.7. Cardiology was consulted by Dr. Lake yesterromero ay. Today, patient is proceeding to planned [...] the next 24 hrs. Will further d/w cd mixer helper. Stool to be tested for heme occult ( first samples were discarded by the pt ). 04/11/18: No chest pain. He had 1 bowel movement today which was formed and brown without m selwyn or hematochezia. H and H remain stable. Appreciate Dr. Scales's and Dr. Trice Ríos's input and recommendations. For now we will [...] Recent Labs Lab 04/11/1841704/10/18 2115 04/10/18 1451 04/10/186 04/09/18 0245 04/08/18 0231 WBC 8.72 -- -- 9.03 9.37 10.32 HGB 13.2 13.0* 13.5 12.3* 14.2 13.6 HCT 38.2* 38.9* 40.7 35.8* 41.0 39.8 PLT 157 -- -- 152 167 172 NEUTOPHILPCT 74.32 -- -- -- 78.82 77.55 MONOPCT 8.49 -- -- -- 8.52 6.83 Recent Labs Lab 04/11/1841704/10/1841504/09/18 1528 04/09/18 0245 NA 142 142 -- [...] report and is used for image stora ge only Past Medical History Diagnosis Date Coronary [...] who presents with the followin. Non-ST elevation AL with diffuse coronary artery disease with previous [...] Dr. Bjorn pavon's, Dr. Warren's, and Dr. Ríos's input and recommendation. We will recheck labs in the morning. 2. Acute GI blood loss. Continue lab checks daily. Discontinued heparin and Integrilin d rips yesterday morning. Continue high-dose PPI empirically. Appreciate Dr. Ríos 's input and recommendations. For now, conservative [...] Nurse Filed: 04/10/18 1502 Date of Service: 04/10/181500 Status: Addendum Program Development Manager: aCrina Armas RN (Registered Nurse) Related Notes: Original Note by Carina Armas RN (Registered Nurse) filed at 04/10/18 150 2 Per primary RN and Dr Herring, holding off anticoagulation at this time due to bloody stools Per Dr Warren's note, pt may d/c on Brilinta. Will conitnue to monitor, pt will not d/c ov mayelin Bianchi onver bridget Transaction, Provider Unknown - 04/10/2018 9:38 AM PDT Nurse Progress Note by Cary Gardiner RN at 04/10/18937 Author: Cary Gardiner RN Service: (none) Author Type: Registered Nurse Filed: 04/10/1841 Date of Service: 04/10/18937 Status: Signed Program Development Manager: Cary Gardiner RN (Registered Nurse) Pt reports that he started having bloody looking BMs last evening. He is instructed to noti fy the nurse when having a BM to assess color etc. He voices understanding. CARY GARDINER RN John Shields MD - 04/10/2018 8:17 AM PDTFormatting of this note might be different from amanda borrego original. Progress Notes by John Herring MD at 04/10/18816 Author: John Herring MD Service: Hospitalist Author Type: Physician Filed: 04/11/18817 Date of Service: 04/10/18816 Status: Signed Program Development Manager: John Herring MD (Physician) Related Notes: Original Note by John Herring MD (Physician) filed at 04/10/18 1728 [facility] Service: Hospitalist Progress Note Pt: Bayron Ulloa AGE/SEX: 82 y.o. male : 1935 ROOM: [address] [place] [address] " Chief complaint: chest pain History of present illness: came to ED at [facility] in [place], [place] today mckay use of sudden onset [...] patient's cardiac history and requested transfer to [facility] for further workup. 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 He used to follow with Dr Jenkins, who has now retired. He hasn't established care with a new cd mixer helper vicky borrego "everything's been going well." He [...] the RAM graft as well as the pinoleville artery. 7. Two saphenous vein grafts to [...] the next 24 hrs. Will further d/w cd mixer helper. Stool to be tested for heme occult [...] report and is used for image stora ge only Past Medical History Diagnosis Date Coronary [...] who presents with the followin. Non-ST elevation AL, diffuse coronary artery disease with previous CABG [...] GI bleed. GI consulted - Dr. Trice Ríos for opinion. Fo r now, conservative therapy in view of patient's recent non-ST elevation AL. 3. Hypertension. Tolerating increased doses of beta [...] 04/09/181929 Date of Service: 04/09/181849 Status: Signed Program Development Manager: Pily Sloan RN (Registered Nurse) Patient denies CP throughout shift. Heparin gtt therapeutic x1. PO metoprolol dose increase d today, tolerated well. PILY SLOAN RN Nanci , Chasity Bunn MD - 04/09/2018 6:04 PM PDTFormatting of this note might be different fr om the original. Progress Notes by Chasity Warren MD at 04/09/181803 Author: Chasity Warren MD Service: Interventional Cardiology Author Type: Physicia n Filed: 04/09/181818 Date of Service: 04/09/181803 Status: Signed Program Development Manager: Chasity Warren MD (Physician) [facility] Service: Cardiology Progress Note Hospital Day: LOS: 2 days - Patient remains hemodynamically stable and chest pain free - Discussed with patient and family in length coronary anatomy and options for management. - Given large thrombus burden in large, old marvel graft to much smaller Ramus with extension of thrombus to pinoleville ramus, PCI carry high risk of failure, [...] Case Management by Carina Armas RN at 04/09/18 158 Author: Carina Armas RN Service: (none) Author Type: Registered Nurse Filed: 04/09/18 1247 Date of Service: 04/09/181246 Status: Signed Program Development Manager: Carina Armas RN (Registered Nurse) Met with pt and spouse re d/c planning. Pt will have cath tomorrow. Pt is from home, has dm e and is established on Plavix. Tash y Britton MD - 04/09/2018 11:02 AM PDT Progress Notes by Ry Scales MD at 04/09/18 1102 Author: Ry Scales MD Service: Cardiology Author Type: Physician Filed: 04/09/18 1111 Date of Service: 04/09/18 110 Status: Signed Program Development Manager: Ry Scales MD (Physician) [facility] Service: Cardiology Progress Note Hospital Day: LOS: 2 days Post-Op Day: * No surgery found * SUBJECTIVE Patient Summary: Patient seen by the bedside no new complaints. No overnight events, n o chest pain currently. Underwent cath yesterday showed large fresh thrombus noted in the mi d to distal SVG to Ramus also involving pinoleville ostial ramus, given extensive clot burden dec ision was made to not proceed with PCI and was started on Integrilin drip hoping soften the clot and re evaluate for PCI in 2-3 days. Denies any chest pain, SOB, palpitations, dizzine ss, syncope, orthopnea, PND. 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 Progress Notes by John Herring MD at 04/09/18826 Author: John Herring MD Service: Hospitalist Author Type: Physician Filed: 04/10/18 0753 Date of Service: 04/09/18826 Status: Signed Program Development Manager: John Herring MD (Physician) Related Notes: Original Note by John Herring MD (Physician) filed at 04/09/18 1810 [facility] Service: Hospitalist Progress Note Pt: Bayron Ulloa AGE/SEX: 82 y.o. male : 1935 ROOM: [facility]/4440- " Chief complaint: chest pain History of present illness: came to ED at [facility] in [place], [place] today mckay use of sudden onset chest [...] patient's cardiac history and requested transfer to [facility] for further workup. 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 He used to follow with Dr Jenkins, who has now retired. He hasn't established care with a new cd mixer helper vicky borrego "everything's been going well." He [...] the RAM graft as well as the pinoleville artery. 7. Two saphenous vein grafts to [...] 13.7. Cardiology was consulted by Dr. Lake yeskatie ay. Today, patient is proceeding to planned [...] report and is used for image stora Riskalyze only Past Medical History Diagnosis Date Coronary [...] therapy, hypertension, who presents with the followin. Aks-GE-pwyojwufj AL. Diffuse coronary artery disease with previous CABG [...] PM PDT Progress Notes by Milagros Camp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 Integrelin gtt running at 2 mcg/kg/hr per order. Heparin gtt to be restarted at 1500 per report. Femstop in place on R groin mynx access site, to remain on until 1500 per report. RLE pulses palpable. Pt educated on safety precautions. Kandi Godinez RN onver bridget Transaction, Provider Unknown - 04/08/2018 12:58 PM PDT Nurse Progress Note by Juan Blood RN at 04/08/18 9778 Author: Juan lBood RN Service: Cardiac, Thoracic, and Vascular Surgery Author T ype: Registered Nurse Filed: 04/08/18 1258 Date of Service: 04/08/18 1258 Status: Signed Program Development Manager: Juan Blood RN (Registered Nurse) Dr. Warren gave VO for heparin gtt to restart in 2 hours post end of case at 1235. onver bridget Transaction, Provider Unknown - 04/08/2018 10:55 AM PDT Case Management by Kandi Gonzalez RN at 04/08/18 1058 Author: Kandi Gonzalez RN Service: (none) Author Type: Registered Nurse Filed: 04/08/18 1107 Date of Service: 04/08/181054 Status: Signed Program Development Manager: Kandi Gonzalez RN (Registered Nurse) 04/08/18 1059 Discharge Planning Evaluation Living Arrangements Spouse/significant other Support Systems Spouse/significant other Type of Residence Private residence Independent with ADL's Yes Independent with Mobility Yes Home Care Services No Caregiver after Discharge No Mental Status Oriented Resources Financial concerns No Transportation issues No Patient/Family concerns No Prescription Plan Yes Name of Pharmacy [facility] Previous home health equipment Yes CM attempted to meet with pt but 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 CM discussed discharge planning, Pt is a 82 y.o., male admitted with NSTE AL. Pt and live in [place], [place]. Pt is independent at baseline with walker/cane. W juan states they have no home care services currently. Pt was on Plavix prior to admit. 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 Patient's PCP is: Fabricio Bah Patient's insurance: Medicare/[employer] Coverage concerns: no Medication coverage/concerns: no concerns Rx Bedside Delivery: tbd Community resources utilized / needed: no Assistance in transportation: tbd; family to transport Identification of any specific education / training: tbd Barriers to Discharge / Alternative housing needed: tbd Anticipated DCP: tbd pending clinical course-CM to follow Kandi Gonzalez [phone] onver bridget Transaction, Provider Unknown - 04/08/2018 10:25 AM PDT Nurse Progress Note by Elisabeth Rueda RN at 04/08/181024 Author: Elisabeth Rueda RN Service: (none) Author Type: Registered Nurse Filed: 04/08/181025 Date of Service: 04/08/181024 Status: Signed Program Development Manager: Elisabeth Rueda RN (Registered Nurse) 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 Tele notified. Groin sites prepped, no addit ional IV in place. dental lab technician notified. onver bridget Transaction, Provider Unknown - 04/08/2018 9:00 AM PDT Nurse Progress Note by Elisabeth Rueda RN at 04/08/18899 Author: Elisabeth Rueda RN Service: (none) Author Type: Registered Nurse Filed: 04/08/18900 Date of Service: 04/08/18899 Status: Signed Program Development Manager: Elisabeth Rueda RN (Registered Nurse) Dr. Scales [...] 04/08/18832 Date of Service: 04/08/18829 Status: Signed Program Development Manager: Elisabeth Rueda RN (Registered Nurse) Called and left message with Dr. Scales, no answer. Per Dr. Herring, Dr. Scales should be seeing the patient today for a consult and possible heart cath. Went to [facility] and called Dr. Charles, who stated he is doing the in-hospital cardiology consults today, but stated th e hospitalist should just call him to regarding the patient. Dr. Herring paged with updated i nformation. John Shields MD - 04/08/2018 8:11 AM PDTFormatting of this note might be different from e original. Progress Notes by John Herring MD at 04/08/18 08 Author: John Herring MD Service: Hospitalist Author Type: Physician Filed: 04/08/182001 Date of Service: 04/08/18810 Status: Signed Program Development Manager: John Herring MD (Physician) Related Notes: Original Note by John Herring MD (Physician) filed at 04/08/18 1704 [facility] Service: Hospitalist Progress Note Pt: Bayron Ulloa AGE/SEX: 82 y.o. male : 1935 ROOM: [address] [place] [address] " Chief complaint: chest pain History of present illness: came to ED at [facility] in [place], [place] today mckay use of sudden onset chest [...] patient's cardiac history and requested transfer to [facility] for further workup. 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 He used to follow with Dr Jenkins, who has now retired. He hasn't established care with a new cd mixer helper vicky borrego "everything's been going well." He [...] the RAM graft as well as the [place] artery. 7. Two saphenous vein grafts to [...] Vitals for the past 96 hrs: Weight 04/07/182137 81.2 kg (179 lb) Hemodynamics Last 24hrs: [...] INR -- 1.0 Recent Labs Lab 04/08/18 0231 TSH 0.725 Recent Labs Lab 04/08/18 0231 04/07/18 2232 TROPONINI 13.7* 2.36* Diagnostic: X-ray Chest 1 View Result Date: 04/07/2018 This is a non-reportable procedure without a radiologist report and is used for image stora ge only Past Medical History Diagnosis Date Coronary [...] who presents with the followin. Non-ST elevation AL. The patient had a significant rise in [...] 04/08/18754 Date of Service: 04/08/18751 Status: Addendum Program Development Manager: Elisabeth Rueda RN (Registered Nurse) Related Notes: Original Note by Elisabeth Rueda RN (Registered Nurse) filed at 04/08/18754 Tele called this RN to notify that patient had 15 beats of Vtach and 5 beats of AIVR. Check ed on patient, who denies any chest pain, SOB, palpitations or lightheadedness. ECHO in the room, technical specialist cytology also noticed abnormal rhythm and asked pt if he was experiencing any symptom s, to which pt denied. Dr. Herring notified. onver bridget Transaction, Provider Unknown - 04/08/2018 3:41 AM PDT Pharmacy Note by Rasheeda Owens RPH at 04/08/18340 Author: Rasheeda Owens RPH Service: Pharmacy Author Type: Pharmacist Filed: 04/08/18340 Date of Service: 04/08/18340 Status: Signed Program Development Manager: Rasheeda Owens RPH (Pharmacist) Clinical Pharmacy Note: Renal Monitoring Height: 177.8 cm Weight: 81.2 kg Serum Creatinine: 1.14 mg/dL (from [facility]) Estimated creatinine clearance - Cockcroft-Gault CrCl: 50 mL/min Pharmacy dosing for renal function per Dr. Lake. Currently there are no medications needing to be adjusted. Pharmacy will continue to monito r for changes in medication orders and in renal function and adjust accordingly. Rasheeda Owens, PharmD 04/08/2018 3:41 AM onver bridget Transaction, Provider Unknown - 04/08/2018 3:29 AM PDT Nurse Progress Note by Jessi Benoit RN at 04/08/18328 Author: Jessi Benoit RN Service: (none) Author Type: Registered Nurse Filed: 04/08/18 0330 Date of Service: 04/08/18328 Status: Signed Program Development Manager: Jessi Benoit RN (Registered Nurse) I notified Dr. Lake of another elevated troponin level, no new orders at this time. onver bridget Transaction, Provider Unknown - 04/08/2018 2:41 AM PDT Nurse Progress Note by Jessi Benoit RN at 04/08/18240 Author: Jessi Benoit RN Service: (none) Author Type: Registered Nurse Filed: 04/08/183 Date of Service: 04/08/18240 Status: Signed Program Development Manager: Jessi Benoit RN (Registered Nurse) PTT was 87 at 0041, but this was 10 minutes after we started the heparin drip and after the heparin bolus. Dr. Lake aware. Next PTT is 0630. (6 hours after the heparin drip was sta rted). onver bridget Transaction, Provider Unknown - 04/07/2018 11:31 PM PDT Nurse Progress Note by Jessi Benoit RN at 04/07/182330 Author: eJssi Benoit RN Service: (none) Author Type: Registered Nurse Filed: 04/07/182331 Date of Service: 04/07/182330 Status: Signed Program Development Manager: Jessi Benoit RN (Registered Nurse) I talked [...] 04/07/182245 Date of Service: 04/07/182245 Status: Signed Program Development Manager: Jessi Benoit RN (Registered Nurse) Dr. Lake is at the bedside onver bridget Transaction, Provider Unknown - 04/07/2018 9:54 PM PDT Nurse Progress Note by Jessi Benoit RN at 04/07/182153 Author: Jessi Benoit RN Service: (none) Author Type: Registered Nurse Filed: 04/07/182154 Date of Service: 04/07/182153 Status: Signed Program Development Manager: Jessi Benoit RN (Registered Nurse) I talked to Dr. Lake and let him know that the pt is here, he is aware. onver bridget Transaction, Provider Unknown - 04/07/2018 9:37 PM PDT Nurse Progress Note by Jessi Benoit RN at 04/07/182136 Author: Jessi Benoit RN Service: (none) Author Type: Registered Nurse Filed: 04/07/182137 Date of Service: 04/07/182136 Status: Signed Program Development Manager: Jessi Benoit RN (Registered Nurse) Pt ambulated to the bathroom and tolerated well docume nted in this encounter Plan of Treatment +--------+---------+ + + + | Date | Type | Specialty | Care Team | Description | +--------+---------+ + + + | 03/20/ | Office | Rheumatology | Roxi, | | | 2019 | Visit | | [address] | | | | | | [address] | | | | | | [place] [address] | | | | | | [phone] | | | | | | | | +--------+---------+ + + + | 04/05/ | Office | Cardiology | Andrade Hobbs, | | | 2019 | Visit | | [address] | | | | | | [place] | | | | | | [address] | | | | | | | [...] EXTERNAL | | | | performed at [facility];[address] | mmol/L | LAB | | | | [address];[place], [place] | | | | | | [address] | | | | + + + [...] + + + | Red Blood | 4.07 (L) | 4.20 - 5.70 | EXTERNAL | | | Cells | | M/uL | LAB | | | Counted | [...] | | | Basophils | performed at [facility], [address] | K/uL | LAB | | | | [address], | | | | | | [place] [address] | | | | + + + [...] EXTERNAL | | | | performed at [facility], [address] | | LAB | | | | [address], | | | | | | [place] [address] | | | | + + + [...] EXTERNAL | | | | performed at [facility], [address] | | LAB | | | | [address], | | | | | | [place] [address] | | | | + + + [...] | | | | | performed at [facility], [address] | | | | | | [facility], | | | | | | [place] [address] | | | | + + + [...] + + + | Red Blood | 4.30 | 4.20 - 5.70 | EXTERNAL | | | Cells | | M/uL | LAB | | | Counted | [...] | | | Basophils | performed at [facility], [address] | K/uL | LAB | | | | [address], | | | | | | [place] [address] | | | | + + + [...] EXTERNAL | | | | performed at [facility], [address] | | LAB | | | | [address], | | | | | | [place] [address] | | | | + + + [...] EXTERNAL | | | | performed at [facility], [address] | | LAB | | | | [address], | | | | | | [place] [address] | | | | + + + [...] | | | | | performed at [facility], [address] | | | | | | [facility], | | | | | | [place] [address] | | | | + + + [...] | | | | | [place] [address] | | | | + + + [...] + + + | Red Blood | 4.22 | 4.20 - 5.70 | EXTERNAL | | | Cells | | M/uL | LAB | | | Counted | [...] | | | Basophils | performed at [facility], [address] | K/uL | LAB | | | | [facility], | | | | | | [place] [address] | | | | + + + [...] EXTERNAL | | | | performed at [facility], [address] | | LAB | | | | [address], | | | | | | [place] [address] | | | | + + + [...] EXTERNAL | | | | performed at [facility], [address] | | LAB | | | | [address], | | | | | | [place] [address] | | | | + + + [...] | | | | | performed at [facility], [address] | | | | | | [facility], | | | | | | [place] [address] | | | | + + + [...] | | | POC | performed at [facility];[address] | | LAB | | | | [address];[place], [place] | | | | | | [address] | | | | + + + [...] | | | POC | performed at [facility];[address] | | LAB | | | | [address] [facility];[place], [place] | | | | | | [address] | | | | + + + [...] | | | Patient | performed at [facility];[address] | | LAB | | | | [address];[place], [place] | | | | | | [address] | | | | + + + [...] EXTERNAL LAB | | Testing performed at [facility];[address] [facility];[place] [address] | | + + + + +---------+ [...] + + + | Red Blood | 3.95 (L) | 4.20 - 5.70 | EXTERNAL | | | Cells | | M/uL | LAB | | | Counted | [...] EXTERNAL | | | | performed at [facility], [address] | | LAB | | | | [address], | | | | | | [place] [address] | | | | + + + [...] | | | Patient | performed at [facility];[address] | | LAB | | | | [address];[place] | | | | | | [address] | | | | + + + [...] EXTERNAL | | | | performed at [facility], [address] | | LAB | | | | [address], | | | | | | [place] [address] | | | | + + + [...] EXTERNAL | | | | performed at [facility] | | LAB | | | | [address];[place] | | | | | | [address] | | | | + + + [...] | | | | | [place] [address] | | | | + + + [...] | | | | | performed at [facility], [address] | | | | | | [facility], | | | | | | [place] [address] | | | | + + + [...] | | | Patient | performed at [facility];[address] | | LAB | | | | [address];[place] | | | | | | [address] | | | | + + + [...] | | | Patient | performed at [facility];[address] | | LAB | | | | [address];[place] | | | | | | [address] | | | | + + + [...] EXTERNAL | | | | performed at [facility];[address] | mmol/L | LAB | | | | [address];[place], [place] | | | | | | [address] | | | | + + + [...] EXTERNAL | | | | performed at [facility];[address] | mmol/L | LAB | | | | [address];[place] | | | | | | [address] | | | | + + + [...] | | | Patient | performed at [facility];[address] | | LAB | | | | [address] [facility];[place], [place] | | | | | | [address] | | | | + + + [...] | | | Patient | performed at [facility];[address] | | LAB | | | | [address];[place] | | | | | | [address] | | | | + + + [...] + + + | Red Blood | 4.55 | 4.20 - 5.70 | EXTERNAL | | | Cells | | M/uL | LAB | | | Counted | [...] | | | Basophils | performed at [facility], [address] | K/uL | LAB | | | | [address], | | | | | | [place] [address] | | | | + + + [...] EXTERNAL | | | | performed at [facility], [address] | | LAB | | | | [address], | | | | | | [place] [address] | | | | + + + [...] EXTERNAL | | | | performed at [facility];[address] | | LAB | | | | [address];[place] | | | | | | [address] | | | | + + + [...] EXTERNAL | | | | performed at [facility], [address] | | LAB | | | | [address], | | | | | | [place] [address] | | | | + + + [...] | | | | | performed at [facility], [address] | | | | | | [facility], | | | | | | [place] [address] | | | | + + + [...] | | | Patient | performed at [facility];[address] | | LAB | | | | [address];[place] | | | | | | [address] | | | | + + + [...] + + + | 1. Severe 3-vessel pinoleville coronary artery disease with occluded | | [...] | | extension of thrombus into the pin[place]ville ramus intermedius. 4. Occluded | | | [...] wire and were able to advance the 6-Irish sheath. A 5-Irish | | | FL4 catheter was advanced; [...] | aortic arch. Then I tried a 5-Irish AL1 catheter after again | | | trying the FL5 catheter without success. Multiple angiographic views | | | of the left coronary system were obtained. Then using the 5-Irish | | | AL1 catheter, I engaged [...] | fresh blood clots extending into the pinoleville ramus. Subsequently a | | | 5-Irish FR4 catheter was advanced over the guidewire into the left | | | ventricle. Left ventricular pressures and pullback pressures were | | | obtained. The 5-Irish FR4 catheter was used for selective | | | engagement of the right coronary artery and angiographic views were | | | obtained. The 5-Irish FR4 catheter was used for selective | | | engagement of the left subclavian artery. Exchange length wire was | | | advanced into the left subclavian artery and a 5-Irish RAM catheter | | | was used for selective engagement of the RAM to LAD graft and | | | multiple angiographic views were obtained. Given the large thrombus | | | burden in all the vein grafts, I felt that PCI at this point would | | | carry a high risk of occlusion of the pinole[place] vein graft with distal | | | embolization and high risk of no-reflow phenomenon, I decided to stop | | | here and treat him medically with Integrilin and heparin. | | | Subsequently the long sheath was exchanged for a short 6-Irish 11 cm | | | sheath. Left [...] of 99 percent. The | | | pinoleville ramus intermedius is about a 2 to [...] | + + | Reginaldo Valencia - 05/19/2019 3:42 PM PDT | | [...] wire and were able to advance the 6-Irish sheath. A 5-Irish | | FL4 catheter was advanced; however, [...] arch. Then I tried a | | 5-Irish AL1 catheter after again trying the FL5 catheter without success. | | Multiple angiographic views of the left coronary system were obtained. | | Then using the 5-Irish AL1 catheter, I engaged the vein graft [...] blood | | clots extending into the pinoleville ramus. | | | | Subsequently a 5-Irish FR4 catheter was advanced over the guidewire into | | the left ventricle. Left ventricular pressures and pullback pressures were | | obtained. The 5-Irish FR4 catheter was used for selective engagement of | | the right coronary artery and angiographic views were obtained. The | | 5-Irish FR4 catheter was used for selective engagement of the left | | subclavian artery. Exchange length wire was advanced into the left | | subclavian artery and a 5-Irish RAM catheter was used for selective | | engagement of the RAM to LAD graft and multiple angiographic views were | | obtained. Given the large thrombus burden in all the vein grafts, I felt | | that PCI at this point would carry a high risk of occlusion of the pinoleville | | vein graft with distal embolization and high risk of no-reflow phenomenon, | | I decided to stop here and treat him medically with Integrilin and heparin. | | Subsequently the long sheath was exchanged for a short 6-Irish 11 cm | | sheath. Left femoral [...] range of 99 | | percent. The pinoleville ramus intermedius is about a 2 to 2.5 mm vessel | | with fresh thrombus extending just after the anastomotic site. There is | | TIMI3 flow, however, in this graft. | | 3. Two vein grafts, likely to the right coronary artery, were occluded. | | | | IMPRESSION: | | 1. Severe 3-vessel pinoleville coronary artery disease with occluded right | [...] extension of thrombus into the | | pinoleville ramus intermedius. | | 4. Occluded other [...] | | | Clotting | performed at [facility];[address] | seconds | LAB | | | time, POC | [address];[place] | | | | | | [address] | | | | + + + [...] | | | Clotting | performed at [facility];[address] | seconds | LAB | | | time, POC | [address];[place], [place] | | | | | | [address] | | | | + + + [...] | | | Clotting | performed at [facility];[address] | seconds | LAB | | | time, POC | [address];[place] | | | | | | [address] | | | | + + + [...] 0.32 m/s TV Dec | | | Dundy: 3.84 m/s2 TV Dec Time: 131.55 ms TV E Jason: 0.50 m/s | | | TV E/A Ratio: 1.55 Spinning Doffer: XAVIER Authenticated by: Ry | | | [...] (A-L): | | 15.96 ml/m2LAAs A2C: 12.09 [id number] A-L A2C: 28.17 mlLALs A2C: 4.41 cmLAAs A4C: | | 13.64 [id number] A-L A4C: 34.73 mlLALs A4C: 4.54 cmAo [...] A Jason: 0.32 m/sTV Dec | | Dundy: 3.84 m/s2TV Dec Time: 131.55 msTV E Jason: 0.50 m/sTV E/A Ratio: 1.55 | | Spinning Doffer: THEODORAuthenticated by: Ry Vazquez Date/Time: 04-08-2018 10:14:18 | [...] A Jason: 0.32 m/s | |TV Dec Dundy: 3.84 m/s2 | |TV Dec Time: 131.55 ms | |TV E Jason: 0.50 m/s | |TV E/A Ratio: 1.55 | | | |Spinning Doffer: KVW | |Authenticated by: Ry Scales | [...] | | | Patient | performed at [facility];[address] | | LAB | | | | [address];[place], [place] | | | | | | [address] | | | | + + + [...] + + | Historically [facility] [facility] | EXTERNAL LAB | + + [...] | | | | | | ACUTE AL CALLED NURSING | | | | | | IDALMIS CHEATHAM AT 0317 | | | | | | BY [employer] PharmaceuticalsREAD BACK RESULTS | | | | | | VERIFIEDTesting | | | | | | performed at [facility];[address] | | | | | | [address];[place], [place] | | | | | | [address] | | | | + + + [...] + + + | Red Blood | 4.42 | 4.20 - 5.70 | EXTERNAL | | | Cells | | M/uL | LAB | | | Counted | [...] | | | Basophils | performed at [facility], [address] | K/uL | LAB | | | | [address], | | | | | | [place] [address] | | | | + + + [...] EXTERNAL | | | | performed at [facility], [address] | uIU/mL | LAB | | | | [address], | | | | | | [place] [address] | | | | + + + [...] EXTERNAL | | | | performed at [facility] | | LAB | | | | [address];[place] | | | | | | [address] | | | | + + + [...] | | | | | performed at [facility], [address] | | | | | | [facility], | | | | | | [place] [address] | | | | + + + [...] | | | Patient | PHONED TO [facility] M | | LAB | | | | AT 0150 BY [employer] Book ClubREAD BACK | | | | | | RESULTS VERIFIEDTesting | | | | | | performed at [facility];[address] | | | | | | [address];[place], [place] | | | | | | [address] | | | | + + + [...] | | | | | performed at [facility];[address] | | | | | | [address];[place], [place] | | | | | | [address] | | | | + + + [...] | | | | | | ACUTE AL CALLED | | | | | | RESULTSREAD BACK RESULTS | | | | | | ARSH Shin/NIYA AT | | | | | | 2325 BY Jose Miguel | | | | | | performed at [facility];[address] | | | | | | [address];[place], [place] | | | | | | [address] | | | | + + + [...]
--- OUTSIDE RECORDS SUMMARY | ~2020-02-05 | XMS | Encounter Summary ---
Demographics + + + | Address | [address] | | | [place] [address] | + + + | Home Phone | | + + + | Preferred Language | Unknown | + + + | Marital Status | | + + + | Alevism Affiliation | 1077 | + + + | Race | Unknown | + + + | Ethnic Group | Unknown | + + + Author + + + | Author | [facility] | | | and [place] | + + + | Organization | [facility] | | | [...] [place] | | | | | [address] | | + + + + + | Arin Ulloa | ECON | Unknown | | + + + + + Care Team Providers + +------+ + | Care Forest Nursery Supervisor Name | Role | Phone | + +------+ + PCP | Unavailable | + +------+ + Encounter Details +--------+ + + + + | Date | Type | Department | Care Team | Description | +--------+ + + + + | 10/15/ | Orders Only | [facility] | RyneghazalAndrade, | | | 2019 | | CARDIOLOGY [place] | [address] | | | | | [address] | [place], [place] | | | | | [place], [place] | [address] | | | | | [address] | | | | | | [phone] | | | +--------+ + + + [...] | | | | | [place] [address] | | | | | | [phone] | | | | | | | | +--------+---------+ + + + | 04/05/ | Office | Cardiology | Andrade Hobbs, | | | 2019 | Visit | | MD Curtis ESPARZA | | | | | | [facility] [place] | | | | | | [address] | | | | | | | | +--------+---------+ + + + documented as of this encounter Procedures + +--------+ + + + | Procedure Name | Priori | Date/Time | Associated Diagnosis | Comments | | | ty | | | | + +--------+ + + + | CBC WITH MANUAL | Routin | 10/15/2018 | | Results for this | | DIFFERENTIAL | e | 1:45 PM | | procedure are in the | | | | PST | | results section. | + +--------+ + + + | B TYPE NATRIURETIC | Routin | 10/15/2018 | | Results for this | | PEPTIDE | e | 1:45 PM | | procedure are in the | | | | PST | | results section. | + +--------+ + + + | BASIC METABOLIC | Routin | 10/15/2018 | | Results for this | | PANEL | e | 1:45 PM | | procedure are in the | | | | PST | | results section. | + +--------+ + + + documented in this encounter Results CBC with Manual Differential (10/15/2018 1:45 PM PST) + + + + + + | Component | Value | Ref Range | Performed | Pathologist | | | | | At | Signature | + + + + + + | WBC | 9.5 | 4.5 - 11.0 10 | EXTERNAL | | | | | | LAB | | + + + + + + | Red Blood | 4.65 | 4.3 - 5.7 10 | EXTERNAL | | | Cells | | | LAB | | | Counted | | | | | + + + + + + | Hemoglobin | 15.0 | 13.5 - 18.0 | EXTERNAL | | | | | g/dL | LAB | | + + + + + + | Hematocrit, | 45.2 | 41 - 50 % | EXTERNAL | | | POC | | | LAB | | + + + + + + | MCV | 97.3 | 81 - 99 fL | EXTERNAL | | | | | | LAB | | + + + + + + | MCH | 32 | 27 - 33 pg | EXTERNAL | | | | | | LAB | | + + + + + + | MCHC | 33 | 30 - 36 g/dL | EXTERNAL | | | | | | LAB | | + + + + + + | RDW-CV | 13.2 | 10.5 - 15.0 % | EXTERNAL | | | | | | LAB | | + + + + + + | Platelet | 164 | 140 - 440 K/ L | EXTERNAL | | | Count | | | LAB | | | Plasma | | | | | + + + + + + | MPV | | fL | EXTERNAL | | | | | | LAB | | + + + + + + | % Segmented | 81.8 (A) | 39 - 80 % | EXTERNAL | | | | | | LAB | | | Neutrophils | | | | | + + + + + + | % | 10.5 (A) | 24 - 44 % | EXTERNAL | | | Lymphocytes | | | LAB | | + + + + + + | % Monocytes | 6.4 | 0 - 12 % | EXTERNAL | | | | | | LAB | | + + + + + + | % | 1.0 | 0 - 6 % | EXTERNAL | | | Eosinophils | | | LAB | | + + + + + + | % Basophils | 0.3 | 0 - 2 % | EXTERNAL | | | | | | LAB | | + + + + + + | Absolute | | / L | EXTERNAL | | | Neutrophils | | | LAB | | + + + + + + | Absolute | | / L | EXTERNAL | | | Lymphocytes | | | LAB | | + + + + + + | Absolute | | / L | EXTERNAL | | | Monocytes | | | LAB | | + + + + + + | Absolute | | / L | EXTERNAL | | | Eosinophils | | | LAB | | + + + + + + | Absolute | | [...] +---------+ + + B Type Natriuretic Peptide (10/15/2018 1:45 PM PST) + +---------+ + + + | Component | Value | Ref Range | Performed | Pathologist | | | | | At | Signature | + +---------+ + + + | BNP | 160 (A) | 0 - 100 pg/mL | EXTERNAL | | | | | | LAB | | + +---------+ + + + + + | Specimen | + + | Blood specimen | | (specimen) | + + + +---------+ + + | Performing | Address | City/State/Zipcode | Phone Number | | Organization | | | | + +---------+ + + | EXTERNAL LAB | | | | + +---------+ + + Basic Metabolic Panel (10/15/2018 1:45 PM PST) + + + + + + | Component | Value | Ref Range | Performed | Pathologist | | | | | At | Signature | + + + + + + | Glucose, | 106 (A) | 70 - 100 mg/dL | EXTERNAL | | | Fasting | | | LAB | | + + + + + + | BUN | 25 (A) | 6 - 23 mg/dL | EXTERNAL | | | | | | LAB | | + + + + + + | Creatinine | 1.14 (A) | 0.70 - 1.11 | EXTERNAL | | | | | mg/dL | LAB | | + + + + + + | BUN/Creatin | 21.9 | 6.0 - 28.6 | EXTERNAL | | | ine Ratio | | | LAB | | + + + + + + | Calcium | 9.5 | 8.5 - 10.3 | EXTERNAL | | | | | mg/dL | LAB | | + + + + + + | Na | 141 | 132 - 143 | EXTERNAL | | | | | mmol/L | LAB | | + + + + + + | K | 4.8 | 3.6 - 5.1 | EXTERNAL | | | | | mmol/L | LAB | | + + + + + + | Cl | 101 | 95 - 112 mmol/L | EXTERNAL | | | | | | LAB | | + + + + + + | CO2 | 27 | 19 - 31 mmol/L | EXTERNAL | | | | | | LAB | | + + + + + + | Anion Gap | 17.8 | 7 - 21 mmol/L | EXTERNAL | | | | | | LAB | | + + + + + + | Estimated | 61 | mg/dL | EXTERNAL | | | GFR | | | LAB | | + [...]
--- OUTSIDE RECORDS SUMMARY | ~2020-02-05 | XMS | Encounter Summary ---
Demographics + + + | Address | [address] | | | [place] [address] | + + + | Home Phone | | + + + | Preferred Language | Unknown | + + + | Marital Status | | + + + | Evangelical Affiliation | Unknown | + + + | Race | White | + + + | Ethnic Group | Not or | + + + Author + + + | Author | [facility] | + + + | Organization | [facility] | + + + | Address | Unknown | + + + | Phone | Unavailable | + + + Care Team Providers + +------+ + | Care Lpn Cma Name | Role | Phone | + [...] [id number] | | | | | | [facility] | | | | | | and Healing, | | | | | | Building [address], [address]th | | | | | | Floor [place], [place] | | | | | | [address] | | | | | | [phone] | | | +--------+ + + + [...] papular | | | | | | tdzou-nrpt-bio skin, | | | | | | [id number]. Thesurgical | | | | | | [...] | | | | | | papular jones-solorzano skin, | | | | | | [id number]. The surgical | | | | | [...] | | | | | | papular [id number]-[id number] | | | | | | skin, [id number]. The | | | | | | [...] [facility] | [address] | [place] [address] | | | DERMATOPATHOLOGY | [address] [...]
--- OUTSIDE RECORDS SUMMARY | ~2020-02-05 | XMS | Encounter Summary ---
Demographics + + + | Address | [address] | | | [place] [address] | + + + | Home Phone | | + + + | Preferred Language | Unknown | + + + | Marital Status | | + + + | Advent Affiliation | 1077 | + + + | Race | Unknown | + + + | Ethnic Group | Unknown | + + + Author + + + | Author | [facility] | | | and [place] | + + + | Organization | [facility] | | | [...] [place] | | | | | [address] | | + + + + + | Arin Ulloa | ECON | Unknown | | + + + + + Care Team Providers + +------+ + | Care Manager Installation Name | Role | Phone | + +------+ + | Fabricio Bah | PCP | | | MD | | | + +------+ + Encounter Details +--------+ + + + + | Date | Type | Department | Care Team | Description | +--------+ + + + + | 10/28/ | Orders Only | [facility] | Andrade Hobbs, | | | 2019 | | CARDIOLOGY [place] | [address] | | | | | [address] | [place], [place] | | | | | [place], [place] | [address] | | | | | [address] | | | | | | [phone] | | | +--------+ + + + [...] | | | | | [place] [address] | | | | | | [phone] | | | | | | | | +--------+---------+ + + + | 04/05/ | Office | Cardiology | Andrade Hobbs | | | 2019 | Visit | | MD Curtis ESPARZA | | | | | | [place] | | | | | | [address] | | | | | | | | +--------+---------+ + + + documented as of this encounter Visit Diagnoses Not on filedocumented in this encounter"
--- OUTSIDE RECORDS SUMMARY | ~2020-02-05 | XMS | Encounter Summary ---
Demographics + + + | Address | [address] | | | [place] [address] | + + + | Home Phone | | + + + | Preferred Language | Unknown | + + + | Marital Status | | + + + | Tenriism Affiliation | 1077 | + + + [...] [place] | | | | | [address] | | + + + + + | Arin Ulloa | ECON | Unknown | | + + + + + Care Team Providers + +------+ + | Care Game And Fish Protector Name | Role | Phone | + +------+ + PCP | Unavailable | + +------+ + Encounter Details +--------+ + + + + | Date | Type | Department | Care Team | Description | +--------+ + + + + | 01/26/ | Hospital | [facility] | Wilfrido Salazar MD | [facility] [place] | | 2006 - | Encounter | [facility] | | [facility] ([facility]) | | | | CARE FLOOR [address] | | | | 01/28/ | | [address] | | | | 2006 | | [place] | | | | | | [address] | | | | | | [phone] | | | +--------+ + + + [...] | | | | | | [place] [address] | | | | | | [phone] | | | | | | | | +--------+---------+ + + + | 04/05/ | Office | Cardiology | Andrade Hobbs, | | | 2019 | Visit | | MD Curtis ESPARZA | | | | | | [place] | | | | | | [phone] | | | | | | | | +--------+---------+ + + + documented as of this encounter Visit Diagnoses + + | Diagnosis | + + | Acute myocardial infarction, subendocardial infarction, initial episode of care (HCC) | | Acute myocardial infarction, subendocardial infarction, initial episode of care | + + documented in this encounter"
--- OUTSIDE RECORDS SUMMARY | ~2020-02-05 | XMS | Encounter Summary ---
Demographics + + + | Address | [address] | | | [place] [address] | + + + | Home Phone | | + + + | Preferred Language | Unknown | + + + | Marital Status | | + + + | Baptist Affiliation | 1077 | + + + | Race | Unknown | + + + | Ethnic Group | Unknown | + + + Author + + + | Author | [facility] | | | and [place] | + + + | Organization | [facility] | | [...] [place] | | | | | [address] | | + + + + + | Arin Ulloa | ECON | Unknown | | + + + + + Care Team Providers + +------+ + | Care Steam Hoist Operator Name | Role | Phone | + +------+ + PCP | Unavailable | + +------+ + Encounter Details +--------+ + + + + | Date | Type | Department | Care Team | Description | +--------+ + + + + | 10/01/ | Hospital | [facility] | Derrek Darnell | | | 2001 | Encounter | [facility] | MD Zack Grant | | | | | CONVERSION | [facility] | | | | | DEPARTMENT [address] | | | | | [facility] | Road [place], [place] | | | | | [place], [place] | [id number] | | | | | [address] | | | | | | [phone] | | | +--------+ + + + [...] | | | | | [place] [address] | | | | | | [phone] | | | | | | | | +--------+---------+ + + + | 04/05/ | Office | Cardiology | Andrade Hobbs, | | | 2019 | Visit | | MD Curtis ESPARZA | | | | | | [place] | | | | | | [phone] | | | | | | | | +--------+---------+ + + + documented as of this encounter Visit Diagnoses Not on filedocumented in this encounter"
--- OUTSIDE RECORDS SUMMARY | ~2020-02-05 | XMS | Encounter Summary ---
Demographics + + + | Address | [address] | | | [place] [address] | + + + | Home Phone | | + + + | Preferred Language | Unknown | + + + | Marital Status | | + + + | Mu-Ism Affiliation | 1077 | + + + [...] [place] | | | | | [address] | | + + + + + | Arin Ulloa | ECON | Unknown | | + + + + + Care Team Providers + +------+ + | Care Identification Officer Name | Role | Phone | + +------+ + | Fabricio Bah | PCP | | | MD | | | + +------+ + Encounter Details +--------+ + + + + | Date | Type | Department | Care Team | Description | +--------+ + + + + | 03/31/ | Orders Only | [facility] | Roxi, | | | 2018 | | RHEUMATOLOGY [address] | [address] | | | | | [address] | [address] | | | | | [place], [place] | [place] [address] | | | | | [address] | [phone] | | | | | [phone] | | | +--------+ + + + [...] | | | | | [place] [address] | | | | | | [phone] | | | | | | | | +--------+---------+ + + + | 04/05/ | Office | Cardiology | Andrade Hobbs, | | | 2019 | Visit | | MD Curtis ESPARZA | | | | | | [place] | | | | | | [address] | | | | | | | | +--------+---------+ + + + documented as of this encounter Visit Diagnoses Not on filedocumented in this encounter"
--- OUTSIDE RECORDS SUMMARY | ~2020-02-05 | XMS | Encounter Summary ---
Demographics + + + | Address | [address] | | | [place] [address] | + + + | Home Phone | | + + + | Preferred Language | Unknown | + + + | Marital Status | | + + + | Spiritism Affiliation | 1077 | + + + | Race | Unknown | + + + | Ethnic Group | Unknown | + + + Author + + + | Author | [facility] | | | and [place] | + + + | Organization | [facility] | | [...] [place] | | | | | [address] | | + + + + + | Arin Ulloa | ECON | Unknown | | + + + + + Care Team Providers + +------+ + | Care Physical Chemist Name | Role | Phone | + +------+ + PCP | Unavailable | + +------+ + Encounter Details +--------+ + + + + | Date | Type | Department | Care Team | Description | +--------+ + + + + | 03/24/ | Hospital | [facility] | Romero Ferguson | | | 1999 | Encounter | [facility] | [address] [place] | | | | | GENERIC CONV DEPT | [address] [place], [place] | | | | | [address] | [address] | | | | | [place] | | | | | | [address] | | | | | | [phone] | | | +--------+ + + + [...] | | | | | [place] [address] | | | | | | [phone] | | | | | | | | +--------+---------+ + + + | 04/05/ | Office | Cardiology | Andrade Hobbs, | | | 2019 | Visit | | MD Curtis ESPARZA | | | | | | [place] | | | | | | [address] | | | | | | | | +--------+---------+ + + + documented as of this encounter Visit Diagnoses Not on filedocumented in this encounter"
--- OUTSIDE RECORDS SUMMARY | ~2020-02-05 | XMS | Encounter Summary ---
Demographics + + + | Address | [address] | | | [place] [address] | + + + | Home Phone | | + + + | Preferred Language | Unknown | + + + | Marital Status | | + + + | Sikh Affiliation | 1077 | + + + | Race | Unknown | + + + | Ethnic Group | Unknown | + + + Author + + + | Author | [facility] | | | and [place] | + + + | Organization | [facility] | | [...] [place] | | | | | [address] | | + + + + + | Arin Ulloa | ECON | Unknown | | + + + + + Care Team Providers + +------+ + | Care Lap Maker Name | Role | Phone | + +------+ + PCP | Unavailable | + +------+ + Encounter Details +--------+ + + + + | Date | Type | Department | Care Team | Description | +--------+ + + + + | 01/26/ | Hospital | [facility] | Wilfrido Salazar MD | [facility] [place] | | 2006 - | Encounter | [facility] | | [facility] | | | | CARE FLOOR [address] | | | | 01/28/ | | [address] | | | | 2006 | | [place] | | | | | | [address] | | | | | | [phone] | | | +--------+ + + + [...] | | | | | | [place] [address] | | | | | | [phone] | | | | | | | | +--------+---------+ + + + | 04/05/ | Office | Cardiology | Andrade Hobbs, | | | 2019 | Visit | | MD Curtis ESPARZA | | | | | | [place] | | | | | | [phone] | | | | | | | | +--------+---------+ + + + documented as of this encounter Visit Diagnoses + + | Diagnosis | + + | Acute myocardial infarction, subendocardial infarction, initial episode of care (HCC) | | Acute myocardial infarction, subendocardial infarction, initial episode of care | + + documented in this encounter"
--- OUTSIDE RECORDS SUMMARY | ~2020-02-05 | XMS | Encounter Summary ---
Demographics + + + | Address | [address] | | | [place] [address] | + + + | Home Phone | | + + + | Preferred Language | Unknown | + + + | Marital Status | | + + + | Caodaism Affiliation | 1077 | + + + | Race | Unknown | + + + | Ethnic Group | Unknown | + + + Author + + + | Author | [facility] | | | and [place] | + + + | Organization | [facility] | | [...] [place] | | | | | [address] | | + + + + + | Arin Ulloa | ECON | Unknown | | + + + + + Care Team Providers + +------+ + | Care Batch Weigher Name | Role | Phone | + [...] + + | 11/03/ | Office | [facility] | [facility] | Stable angina (HCC) | | 2020 | Visit | CARDIOLOGY [place] | MD Curtis ESPARZA | (Primary Dx); | | | | [address] | [place], [place] | Chronic systolic | | | | [address] | [address] | heart failure (HCC); | | | | [place] | | Coronary artery | | | | [address] | | disease of bypass | | | | [phone] | | graft of twenty-nine palms | | | | | | heart [...] + + documented in this encounter Progress Andrade Kovacs MD - 11/03/2019 11:00 AM PSTFormatting of [...] having increased fatigue lately. Last hospitalization in [facility] on 07 April 2018 secondary to non-ST elevation [place]. 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 Last Echo: [...] Severe 3 vessel Coronary artery disease with ARM MAKER of RCA. ARM MAKER of [place]. Patent RAM to LAD. Severe [...] 2019 | Visit | | Tiff Reina STITCH MARK[address] | | | | | | [address] | | | | | | [place] [address] | | | | | | [phone] | | | | | | | | +--------+---------+ + + + | 04/05/ | Office | Cardiology | Andrade Garcia, | | | 2019 | Visit | | MD Curtis ESPARZA | | | | | | [place], [place] | | | | | | [address] | | | | | | | | +--------+---------+ + + + documented as of this encounter Visit Diagnoses + + | Diagnosis | + + | Stable angina (HCC) - Primary Other and unspecified angina pectoris | + + | Chronic systolic heart failure (HCC) Chronic systolic heart failure | + + | 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
--- OUTSIDE RECORDS SUMMARY | ~2020-02-05 | XMS | Encounter Summary ---
Demographics + + + | Address | [address] | | | [place] [address] | + + + | Home Phone [...] [place] | | | | | [address] | | + + + + + | Arin Ulloa | ECON | Unknown | | + + + + + Care Team Providers + +------+ + | Care Environmental Safety Specialist Name | Role | Phone | + [...] + + | 11/03/ | Office | [facility] | [facility] | Stable angina (HCC) | | 2020 | Visit | CARDIOLOGY [place] | MD Curtis ESPARZA | (Primary Dx); | | | | [address] | [place], [place] | Chronic systolic | | | | [address] | [address] | heart failure (HCC); | | | | [place] | | Coronary artery | | | | [address] | | disease of bypass | | | | [phone] | | graft of tyonek | | | | | | heart [...] having increased fatigue lately. Last hospitalization in [facility] on 07 April 2018 secondary to non-ST elevation [place]. L eft heart catheterization showed severe three-vessel [...] sinus bradycardia with long first-degree AV block, ME interval of almost 400 ms. Last Echo: [...] Severe 3 vessel Coronary artery disease with DIRECTOR SELECTION AND ADMINISTRATION of RCA. DIRECTOR SELECTION AND ADMINISTRATION of RI. Patent RAM to LAD. Severe [...] 2019 | Visit | | Tiff Reina OFFSHORE WIND OPERATIONS MANAGER [address] | | | | | | [address] | | | | | | [place] [address] | | | | | | [phone] | | | | | | | | +--------+---------+ + + + | 04/05/ | Office | Cardiology | Andrade Garcia, | | | 2019 | Visit | | MD Curtis ESPARZA | | | | | | [place], [place] | | | | | | [address] | | | | | | | | +--------+---------+ + + + documented as of this encounter Visit Diagnoses + + | Diagnosis | + + | Stable angina (HCC) - Primary Other and unspecified angina pectoris | + + | Chronic systolic heart failure (HCC) Chronic systolic heart failure | + + | 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
--- OUTSIDE RECORDS SUMMARY | ~2020-02-05 | XMS | Encounter Summary ---
Demographics + + + | Address | [address] | | | [place] [address] | + + + | Home Phone | | + + + | Preferred Language | Unknown | + + + | Marital Status | | + + + | Mosque Affiliation | 1077 | + + + | Race | Unknown | + + + | Ethnic Group | Unknown | + + + Author + + + | Author | [facility] | | | and [place] | + + + | Organization | [facility] | | [...] [place] | | | | | [address] | | + + + + + | Arin Ulloa | ECON | Unknown | | + + + + + Care Team Providers + +------+ + | Care Vocational Training Director Name | Role | Phone | + +------+ + | Fabricio aBh | PCP | | | MD | [...] [address] | | | | | [place], [place] | [address] | | | | | [address] | [place] [address] | | | | | [phone] | [phone] | | | | | | | [...] | | | | | [place] [address] | | | | | | [phone] | | | | | | | | +--------+---------+ + + + | 04/05/ | Office | Cardiology | Andrade Hobbs, | | | 2019 | Visit | | MD Curtis ESPARZA | | | | | | [place] | | | | | | [address] | | | | | | | [...]
--- OUTSIDE RECORDS SUMMARY | ~2020-02-05 | XMS | Encounter Summary ---
Demographics + + + | Address | [address] | | | [place] [address] | + + + | Home Phone | | + + + | Preferred Language | Unknown | + + + | Marital Status | | + + + | Synagogue Affiliation | 1077 | + + + [...] [place] | | | | | [address] | | + + + + + | Arin Ulloa | ECON | Unknown | | + + + + + Care Team Providers + +------+ + | Care Field Mechanical Meter Tester Name | Role | Phone | + +------+ + PCP | Unavailable | + +------+ + Encounter Details +--------+ + + + + | Date | Type | Department | Care Team | Description | +--------+ + + + + | 10/15/ | Hospital | [facility] [address] | Divya Ochoa | | | 2001 | Encounter | [facility] | R | | | | | CONVERSION | | | | | | DEPARTMENT [address] | | | | | | [address] | | | | | | [place] | | | | | | [address] | | | | | | [phone] | | | +--------+ + + + [...] | | | | | [place] [address] | | | | | | [phone] | | | | | | | | +--------+---------+ + + + | 04/05/ | Office | Cardiology | Andrade Hobbs, | | | 2019 | Visit | | MD Curtis ESPARZA | | | | | | [place] | | | | | | [phone] | | | | | | | | +--------+---------+ + + + documented as of this encounter Visit Diagnoses Not on filedocumented in this encounter"
--- OUTSIDE RECORDS SUMMARY | ~2020-02-05 | XMS | Encounter Summary ---
Demographics + + + | Address | [address] | | | [place] [address] | + + + | Home Phone | | + + + | Preferred Language | Unknown | + + + | Marital Status | | + + + | Amish Affiliation | 1077 | + + + | Race | Unknown | + + + | Ethnic Group | Unknown | + + + Author + + + | Author | [facility] | | | and [place] | + + + | Organization | [facility] | | [...] [place] | | | | | [address] | | + + + + + | Arin Ulloa | ECON | Unknown | | + + + + + Care Team Providers + +------+ + | Care Neon Tube Pumper Name | Role | Phone | + +------+ + PCP | Unavailable | + +------+ + Encounter Details +--------+ + + + + | Date | Type | Department | Care Team | Description | +--------+ + + + + | 07/17/ | Hospital | [facility] | Brad Cooper | | | 1998 | Encounter | [facility] | [address] | | | | | LABORATORY [address] | [address] | | | | | [address] [place], [place] | [place] [address] | | | | | [address] | [phone] | | | | | [phone] | | | +--------+ + + + [...] | | | | | [place] [address] | | | | | | [phone] | | | | | | | | +--------+---------+ + + + | 04/05/ | Office | Cardiology | Andrade Hobbs, | | | 2019 | Visit | | MD Curtis ESPARZA | | | | | | [place] | | | | | | [address] | | | | | | | | +--------+---------+ + + + documented as of this encounter Visit Diagnoses Not on filedocumented in this encounter"
--- OUTSIDE RECORDS SUMMARY | ~2020-02-05 | XMS | Encounter Summary ---
Demographics + + + | Address | [address] | | | [place] [address] | + + + | Home Phone | | + + + | Preferred Language | Unknown | + + + | Marital Status | | + + + | Yazidi Affiliation | 1077 | + + + [...] [place] | | | | | [address] | | + + + + + | Arin Ulloa | ECON | Unknown | | + + + + + Care Team Providers + +------+ + | Care Medical Education Specialist Name | Role | Phone | + +------+ + PCP | Unavailable | + +------+ + Encounter Details +--------+ + + + + | Date | Type | Department | Care Team | Description | +--------+ + + + + | 10/01/ | Hospital | [facility] | Derrek Darnell | | | 2001 | Encounter | DEBRA GENERIC | MD Zack Joiner | | | | | CONVERSION | [facility] | | | | | DEPARTMENT [address] | [address] | | | | | [facility] | Road [place], [place] | | | | | [place], [place] | [id number] | | | | | [address] | | | | | | [phone] | | | +--------+ + + + [...] | | | | | [place] [address] | | | | | | [phone] | | | | | | | | +--------+---------+ + + + | 04/05/ | Office | Cardiology | Andrade Hobbs, | | | 2019 | Visit | | MD Curtis ESPARZA | | | | | | [place] | | | | | | [phone] | | | | | | | | +--------+---------+ + + + documented as of this encounter Visit Diagnoses Not on filedocumented in this encounter"
--- OUTSIDE RECORDS SUMMARY | ~2020-02-05 | XMS | Encounter Summary ---
Demographics + + + | Address | [address] | | | [place] [address] | + + + | Home Phone | | + + + | Preferred Language | Unknown | + + + | Marital Status | | + + + | Zoroastrianism Affiliation | 1077 | + + + | Race | Unknown | + + + | Ethnic Group | Unknown | + + + Author + + + | Author | [facility] | | | and [place] | + + + | Organization | [facility] | | | [...] [place] | | | | | [address] | | + + + + + | Arin Ulloa | ECON | Unknown | | + + + + + Care Team Providers + +------+ + | Care Director Music Name | Role | Phone | + +------+ + PCP | Unavailable | + +------+ + Encounter Details +--------+ + + + + | Date | Type | Department | Care Team | Description | +--------+ + + + + | 06/05/ | Hospital | [facility] | Anthony Juarez, | | | 1999 | Encounter | HEART MED CTR | MD [address] | | | | | LABORATORY [address] | [address], | | | | | [address] [place], [place] | [place] [address] | | | | | [address] | [phone] | | | | | [phone] | | | +--------+ + + + [...] | | | | | [place] [address] | | | | | | [phone] | | | | | | | | +--------+---------+ + + + | 04/05/ | Office | Cardiology | Andrade Hobbs, | | | 2019 | Visit | | MD Curtis ESPARZA | | | | | | [place] | | | | | | [address] | | | | | | | | +--------+---------+ + + + documented as of this encounter Visit Diagnoses Not on filedocumented in this encounter"
--- OUTSIDE RECORDS SUMMARY | ~2020-02-05 | XMS | Encounter Summary ---
Demographics + + + | Address | [address] | | | [place] [address] | + + + | Home Phone | | + + + | Preferred Language | Unknown | + + + | Marital Status | | + + + | Yazdanism Affiliation | 1077 | + + + | Race | Unknown | + + + | Ethnic Group | Unknown | + + + Author + + + | Author | [facility] | | | and [place] | + + + | Organization | [facility] | | | and [...] [place] | | | | | [address] | | + + + + + | Arin Ulloa | ECON | Unknown | | + + + + + Care Team Providers + +------+ + | Care Senior Statistician Name | Role | Phone | + [...] | | [address] | [place], [place] | | | | | [place], [place] | [address] | | | | | [address] | | | | | | [phone] | | | +--------+ + + + [...] | | | | | | [place] [address] | | | | | | [phone] | | | | | | | | +--------+---------+ + + + | 04/05/ | Office | Cardiology | Andrade Hobbs, | | | 2019 | Visit | | MD Curtis ESPARZA | | | | | | [place] | | | | | | [phone] | | | | | | | | +--------+---------+ + + + documented as of this encounter Visit Diagnoses Not on filedocumented in this encounter"
--- OUTSIDE RECORDS SUMMARY | ~2020-02-05 | XMS | Clinical Summary ---
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 | + + + + + | Primary osteoarthritis involving multiple joints | 10/23/2015 | + + + | Hx of CABG | | + + + | superintendent terminal (current) use of anticoagulants - clopidogrel (PLAVIX) | | | | | + + + + + | Overview: clopidogrel (PLAVIX) | + + + +---+ | Chronic renal insufficiency, stage 2 (mild) | | + +---+ + + | Overview: [id number]: GFR 50's-80's | + + Resolved Problems [...] | | | | | | [place] [address] | | | | | | [phone] | | | | | | | | +--------+---------+ + + + | 04/05/ | Office | Cardiology | Andrade Hobbs, | | 2019 | Visit | | MD Curtis ESPARZA | | | | | | [place] | | | | | | [address] | | | | | | | [...] | | 02/26/ | [id number] | | [id number]: Qty: 1 | c | Eye | - [facility] | | 2023 | 21.0 | | on 08/06/2019 by Johanna, | | | | | | /[address] | | Esequiel John MD at [facility] | | | | | | [id number] | | [facility] | | | | | | / [...] +--------+ +---------+--------+ | BCBS | BCBS | [id number] | 09/29/19 | | | PPO | | | FEDERA | | 02-Pre | | | | | | L FEP | | sent | | | | + +--------+ +--------+ +---------+--------+ | MEDICARE | MEDICA | [id number] | 05/30/19 | [phone] | | Medica | | | RE | | 96-Pre | 5 | | re | | | PART A | | sent | | | | | | AND B | | | | | | + +--------+ +--------+ +---------+--------+ | MEDICARE | MEDICA | [id number] | 05/30/19 | [phone] | | Medica | | | RE | | 96-Pre | 5 | | re | | | PART A | | sent | | | | | | AND B | | | | | | + +--------+ +--------+ +---------+--------+ | BCBS | BCBS | [id number] | 09/29/19 | | | PPO | [...] sonny | | | 0 (Home) | [address] | + +--------+ +--------+ + + | Deep Ulloa | Person | Self | [birth year] | [address] | | | al/Fam | | [phone] | [phone] | [place], [place] | | | sonny | | | 0 (Home) | [address] | + +--------+ +--------+ + + Advance Directives + + + + + | Type | Date Recorded | Patient | Explanation | | | | Vice Admiral | | + + + + + | Power of | | | | | Certified Pediatric Nurse Practitioner | | | | + + + [...]
--- OUTSIDE RECORDS SUMMARY | ~2020-02-05 | XMS | Encounter Summary ---
Demographics + + + | Address | [address] | | | [place] [address] | + + + | Home Phone | | + + + | Preferred Language | Unknown | + + + | Marital Status | | + + + | Amish Affiliation | 1077 | + + + | Race | Unknown | + + + | Ethnic Group | Unknown | + + + Author + + + | Author | [facility] | | | and [place] | + + + | Organization | [facility] | | [...] [place] | | | | | [address] | | + + + + + | Arin Ulloa | ECON | Unknown | | + + + + + Care Team Providers + +------+ + | Care Finisher Wallboard And Plasterboard Name | Role | Phone | + +------+ + | Fabricio Bah | PCP | | | MD | | | + +------+ + Encounter Details +--------+ + + + + | Date | Type | Department | Care Team | Description | +--------+ + + + + | 04/13/ | Orders Only | [facility] | Roxi, | | | 2019 | | RHEUMATOLOGY [address] | [address] [address] | | | | | [address] | [address] | | | | | [place], [place] | [place] [address] | | | | | [address] | [phone] | | | | | [phone] | | | +--------+ + + + [...] | | | | | [place] [address] | | | | | | [phone] | | | | | | | | +--------+---------+ + + + | 04/05/ | Office | Cardiology | Andrade Hobbs, | | | 2019 | Visit | | MD Curtis ESPARZA | | | | | | [place] | | | | | | [address] | | | | | | | | +--------+---------+ + + + documented as of this encounter Visit Diagnoses Not on filedocumented in this encounter"
--- OUTSIDE RECORDS SUMMARY | ~2020-02-05 | XMS | Encounter Summary ---
Demographics + + + | Address | [address] | | | [place] [address] | + + + | Home Phone [...] [place] | | | | | [address] | | + + + + + | Arin lUloa | ECON | Unknown | | + + + + + Care Team Providers + +------+ + | Care First Responder Name | Role | Phone | + +------+ + PCP | Unavailable | + +------+ + Encounter Details +--------+ + + + + | Date | Type | Department | Care Team | Description | +--------+ + + + + | 03/10/ | Hospital | [facility] | Sathish Appiah S | | | 1999 | Encounter | HEART MED CTR | | | | | | LABORATORY [address] | | | | | | [address] [place] | | | | | | [address] | | | | | | [phone] | | | +--------+ + + + [...] | | | | | [place] [address] | | | | | | [phone] | | | | | | | | +--------+---------+ + + + | 04/05/ | Office | Cardiology | Andrade Hobbs, | | | 2019 | Visit | | MD Curtis ESPARZA | | | | | | [place] | | | | | | [phone] | | | | | | | | +--------+---------+ + + + documented as of this encounter Visit Diagnoses Not on filedocumented in this encounter"
--- OUTSIDE RECORDS SUMMARY | ~2020-02-05 | XMS | Encounter Summary ---
Demographics + + + | Address | [address] | | | [place] [address] | + + + | Home Phone | | + + + | Preferred Language | Unknown | + + + | Marital Status | | + + + | Tenriism Affiliation | 1077 | + + + | Race | Unknown | + + + | Ethnic Group | Unknown | + + + Author + + + | Author | [facility] | | | and [place] | + + + | Organization | [facility] | | [...] [place] | | | | | [address] | | + + + + + | Arin Ulloa | ECON | Unknown | | + + + + + Care Team Providers + +------+ + | Care Fishing Manager Name | Role | Phone | [...] + + | 01/01/ | Refill | [facility] | Chasity Vanegas | Medication Refill | | 2020 | | CARDIOLOGY CARMEN | MD Samina [address] | | | | | [address] | [place], [place] | | | | | [place], [place] | [address] | | | | | [address] | | | | | | [phone] | | | +--------+--------+ + + + [...] | | | | | [place] [address] | | | | | | [phone] | | | | | | | | +--------+---------+ + + + | 04/05/ | Office | Cardiology | Andrade Hobbs, | | | 2019 | Visit | | MD Curtis ESPARZA | | | | | | [place] | | | | | | [address] | | | | | | | | +--------+---------+ + + + documented as of this encounter Visit Diagnoses Not on filedocumented in this encounter"
--- OUTSIDE RECORDS SUMMARY | ~2020-02-05 | XMS | Encounter Summary ---
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 | | | | [address] | [address] [place], [place] | (HCC); Essential | | | | [place], [place] | [address] | (primary) | | | | [address] | | hypertension; | | | | [phone] | | Atherosclerosis of | | | [...] | | | | | heart failure ([facility]); | | | | | | Other fdc | | | | | | (current) [...] 2019 | Visit | | [address] | | | | | | [address] | | | | | | [place] [address] | | | | | | [phone] | | | | | | | | +--------+---------+ + + + | 04/05/ | Office | Cardiology | Anjel Andrade, | | | 2019 | Visit | | MD Curtis ESPARZA | | | | | | [place] | | | | | | [address] | | | | | | | [...] with | Lab | Routin | Other fdc | 3 Occurrences | | Differential | [...] Comprehensive | Lab | Routin | Other fdc | 3 Occurrences | | Metabolic Panel [...] Rate | Lab | Routin | Other fdc | 3 Occurrences | | | | [...] | | [facility] | | | | Blvd;[place] [address] | | LABORATORY | | + + + + + + + + | Specimen | + + | Blood | + + + + + + + | Performing | Address | City/State/Zipcode | Phone Number | | Organization | | | | + + + + + | REFERENCE LAB | [address] [place] [address] | [place], [place] | [phone] | | [facility] | Bl[address] | [address] | | | LABORATORY | | | | + + + + + | REFERENCE LAB | [address] [place] [address] | [place], [place] | | | [facility] | Blvd. | [address] | | | LABORATORY | | | [...] | | | | | | MDRD IDCT traceable | | | | | | equation.Testing | | | | | | performed at [facility];[address] | | | | | | [facility] | | | | | | [facility];[place] [address] | | | | | | | | | | + + + + + + + + | Specimen | + + | Blood | + + + + + + + | Performing | Address | City/State/Zipcode | Phone Number | | Organization | | | | + + + + + | REFERENCE LAB | [address] | [place] | [phone] | | [facility] | [address] | [address] | | | LABORATORY | | | | + + + + + | REFERENCE LAB | [address] | [place] | | | [facility] | Blvd. | [address] | | | LABORATORY | | | [...] | | | Absolute | performed at [facility];[address] | [address] | LAB | | | | [place] | | [facility] | | | | [address];[place] [address] | | LABORATORY | | + + + + + + + + | Specimen | + + | Blood | + + + + + + + | Performing | Address | City/State/Zipcode | Phone Number | | Organization | | | | + + + + + | REFERENCE LAB | [address] | [place] | [phone] | | [facility] | [address] | [address] | | | LABORATORY | | | | + + + + + | REFERENCE LAB | [address] | [place] | | | [facility] | Blvd. 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
--- OUTSIDE RECORDS SUMMARY | ~2020-02-05 | XMS | Encounter Summary ---
Demographics + + + | Address | [address] | | | [place] [address] | + + + | Home Phone | | + + + | Preferred Language | Unknown | + + + | Marital Status | | + + + | Jew Affiliation | 1077 | + + + [...] [place] | | | | | [address] | | + + + + + | Arin Ulloa | ECON | Unknown | | + + + + + Care Team Providers + +------+ + | Care Emergency Doctor Name | Role | Phone | + [...] + + | 01/26/ | Telephone | [facility] | Roxi, | Other (Called for | | 2019 | | RHEUMATOLOGY [address] | [address] | Virtual Visit) | | | | [address] | [address] | | | | | [place] | [place] [address] | | | | | [address] | [phone] | | | | | [phone] | | | +--------+ + + + [...] | | | | | [place] [address] | | | | | | [phone] | | | | | | | | +--------+---------+ + + + | 04/05/ | Office | Cardiology | Andrade Hobbs, | | | 2019 | Visit | | MD Curtis ESPARZA | | | | | | [place] | | | | | | [phone] | | | | | | | | +--------+---------+ + + + documented as of this encounter Visit Diagnoses Not on filedocumented in this encounter"
--- OUTSIDE RECORDS SUMMARY | ~2020-02-05 | XMS | Encounter Summary ---
Demographics + + + | Address | [address] | | | [place] [address] | + + + | Home Phone [...] [place] | | | | | [address] | | + + + + + | Arin Ulloa | ECON | Unknown | | + + + + + Care Team Providers + +------+ + | Care Structural Steel Equipment Erector Name | Role | Phone | + [...] Provider Unknown | | | | | [facility] [place] | [phone] | | | | | [address] | | | | | | [phone] | | | +--------+ + + + [...] | | | | | [place] [address] | | | | | | [phone] | | | | | | | | +--------+---------+ + + + | 04/05/ | Office | Cardiology | Andrade Hobbs, | | | 2019 | Visit | | MD Curtis ESPARZA | | | | | | [place] | | | | | | [address] | | | | | | | | +--------+---------+ + + + documented as of this encounter Visit Diagnoses Not on filedocumented in this encounter"
--- OUTSIDE RECORDS SUMMARY | ~2020-02-05 | XMS | Encounter Summary ---
Demographics + + + | Address | [address] | | | [place] [address] | + + + | Home Phone | | + + + | Preferred Language | Unknown | + + + | Marital Status | | + + + | Restorationism Affiliation | 1077 | + + + [...] [place] | | | | | [address] | | + + + + + | Arin Ulloa | ECON | Unknown | | + + + + + Care Team Providers + +------+ + | Care Sharepoint Solutions Developer Name | Role | Phone | + +------+ + PCP | Unavailable | + +------+ + Encounter Details +--------+ + + + + | Date | Type | Department | Care Team | Description | +--------+ + + + + | 05/10/ | Hospital | [facility] | Derrek Darnell | | | 1998 | Encounter | DEBRA GENERIC | MD Zack Leakey | | | | | CONVERSION | [facility] | | | | | DEPARTMENT [address] | [address] | | | | | [facility] | Road [place], [place] | | | | | [place], [place] | [id number] | | | | | [address] | | | | | | [phone] | | | +--------+ + + + [...] | | | | | [place] [address] | | | | | | [phone] | | | | | | | | +--------+---------+ + + + | 04/05/ | Office | Cardiology | Andrade Hobbs, | | | 2019 | Visit | | MD Curtis ESPARZA | | | | | | [place] | | | | | | [phone] | | | | | | | | +--------+---------+ + + + documented as of this encounter Visit Diagnoses Not on filedocumented in this encounter"
--- OUTSIDE RECORDS SUMMARY | ~2020-02-05 | XMS | Encounter Summary ---
Demographics + + + | Address | [address] | | | [place] [address] | + + + | Home Phone [...] [place] | | | | | [address] | | + + + + + | Arin Ulloa | ECON | Unknown | | + + + + + Care Team Providers + +------+ + | Care District Medical Examiner Name | Role | Phone | + +------+ + | Fabricio Bah | PCP | | | MD | | | + +------+ + Encounter Details +--------+ + + + + | Date | Type | Department | Care Team | Description | +--------+ + + + + | 01/09/ | Documentati | [facility] | Andrade Hobbs, | | | 2020 | on | CARDIOLOGY CARMEN | [address] | | | | | [address] | [place], [place] | | | | | [place], [place] | [address] | | | | | [address] | | | | | | [phone] | | | +--------+ + + + [...] documented as of this encounter Progress Notes Andrade Hobbs MD - 01/10/2020 2:18 PM PDTCalled in with increased anginal symptoms. Isosorbide dosage increased. 2 :19 PM PDTdocumented in this encounter Plan of Treatment +--------+---------+ + + + | Date | Type | Specialty | Care Team | Description | +--------+---------+ + + + | 03/20/ | Office | Rheumatology | Roxi, | | | 2019 | Visit | | [address] | | | | | | [address] | | | | | | [place] [address] | | | | | | [phone] | | | | | | | | +--------+---------+ + + + | 04/05/ | Office | Cardiology | Andrade Hobbs, | | | 2019 | Visit | | MD Curtis ESPARZA | | | | | | [place] | | | | | | [phone] | | | | | | | | +--------+---------+ + + + documented as of this encounter Visit Diagnoses Not on filedocumented in this encounter"
--- OUTSIDE RECORDS SUMMARY | ~2020-02-05 | XMS | Encounter Summary ---
Demographics + + + | Address | [address] | | | [place] [address] | + + + | Home Phone | | + + + | Preferred Language | Unknown | + + + | Marital Status | | + + + | Hindu Affiliation | 1077 | + + + [...] [place] | | | | | [address] | | + + + + + | Arin Ulloa | ECON | Unknown | | + + + + + Care Team Providers + +------+ + | Care Qual Research Manager Name | Role | Phone | + +------+ + | Fabricio Bah | PCP | | | MD | | | + +------+ + Encounter Details +--------+ + + + + | Date | Type | Department | Care Team | Description | +--------+ + + + + | 08/06/ | Anesthesia | [facility] | Manan Self | | | 2019 | Event | [facility] | MD Candelario [address] | | | | | [address] | [address] [facility] | | | | | [place], [place] | [place] [address] | | | | | [address] | [phone] | | | | | [phone] | | | +--------+ + + + + Anesthesia Record + + + + + | Procedure Name | Responsible | Anesthesia Start | Anesthesia Stop Time | | | Anesthesiologist | Time | | + + + + + | RIGHT EYE LENS | Manan Palomino | 08/06/19 1306 | 08/06/19 1528 | | EXCHANGE W/ | MD Clair | | | | VITRECTOMY (Right | | | | | Eye) | | | | + + + + + +----+---+ + + | Da | T | Event | Comment | | te | i | | | | | m | | | | | e | | | +----+---+ + + | 11 | 1 | | | | /0 | 2 | | | | 8/ | 5 | | | | 20 | 8 | | | | 19 | | | | +----+---+ + + | | 1 | An Checkout | Pre-use anesthesia machine/equipment checkout. | | | 3 | | | | | 0 | | | | | 5 | | | +----+---+ + + | | 1 | an annie now | | | | 3 | | | | | 0 | | | | | 6 | | | +----+---+ + + | | 1 | Quick Note | Discussed with Dr. Spencer and with patient's preference, will | | | 3 | | proceed with GA | | | 0 | | | | | 6 | | | +----+---+ + + | | 1 | An Start | Reassessment prior to anesthesia induction/procedure. | | | 3 | | | | | 0 | | | | | 6 | | | +----+---+ + + | | 1 | Preoxygenat | | | | 3 | ed | | | | 1 | | | | | 1 | | | +----+---+ + + | | 1 | An | | | | 3 | Induction | | | | 1 | | | | | 4 | | | +----+---+ + + | | 1 | An | | | | 3 | Intubation | | | | 1 | | | | | 6 | | | +----+---+ + + | | 1 | AN | Per surgeon request | | | 3 | Antibiotic | | | | 1 | declined | | | | 8 | | | +----+---+ + + | | 1 | Pre-Procedu | | | | 3 | ral Timeout | | | | 3 | Completed | | | | 1 | | | +----+---+ + + | | 1 | First | | | | 3 | Inc/Proc St | | | | 3 | | | | | 2 | | | +----+---+ + + | | 1 | Breathing | | | | 5 | Spontaneous | | | | 2 | ly | | | | 3 | | | +----+---+ + + | | 1 | Extubation/ | | | | 5 | Airway LDA | | | | 2 | Removal | | | | 3 | | | +----+---+ + + | | 1 | an stop | | | | 5 | data | | | | 2 | | | | | 3 | | | +----+---+ + + | | 1 | An Stop | Patient handed off to recovery nurse. | | | 2 | | | | | 8 | | | +----+---+ + + +------+ | Meds | +------+ + + + | Name | Total | + + + | lidocaine 2% | 75 mg | + + + | propofol | 150 mg | + + + | ondansetron | 4 mg | + + + | dexamethasone (PF) injection 10 | 5 mg | | mg/mL | | + + + | ePHEDrine (AKOVAZ) injection 50 | 5 mg | | mg/mL | | + + + | lactated ringers (LR) infusion | 1,100 mL | + + + + + | Name | + + | N2O Flow Rate (L/Min) | + + | O2 Flow Rate (L/Min) | + + | Insp O2 | + + | Exp SEV | + + | Air Flow Rate (L/Min) | + + + + | No blood administrations on file. | + + +--------+ + + + | Type | Details | Placement | Removal | +--------+ + + + | Periph | 08/06/19; 1204; Left; Forearm; | 08/06/19 1204 by | 08/06/19 1627 by | | eral | [id number] catheter system; | Vira Carney, | Fabricio Velasquez RN | | IV | 20 gauge, 1 1/4 in length; | RN | | | | intradermal injection, tolerated | | | | | well; 08/06/19; 1627 | | | +--------+ + + + | Airway | Placement Date: 08/06/19; | 08/06/19 131 by | 08/06/19 1523 by | | | Placement Time: 1315 (created via | Manan Palomino | Manan Palomino | | | procedure documentation); Mask | MD Clair | MD Clair | | | Ventilation: EZ; Attempts: 1; | | | | | Airway Type: laryngeal mask; | | | | | Size: 4; Trauma: none; Placement | | | | | Check: exhaled CO2 detection | | | | | device, bilateral chest rise, | | | | | breath sounds equal bilaterally; | | | | | Removal Date: 08/06/19; Removal | | | | | Time: 152; Additional Comments: | | | | | Atraumatic LMA placement with | | | | | quality seat and seal. | | | +--------+ + + + | Wound | 08/06/19; 1350; Incision; Right; | 08/06/19 1350 by | 08/06/19 1627 by | | | eye; Healing; 08/06/19; 1627 | Amada Mahmood RN | Fabricio Velasquez RN | +--------+ + + + documented in this encounter Social History + +-------+ +--------+------+ | Tobacco [...] 2019 | Visit | | [address] | | | | | | [address] | | | | | | [place] [address] | | | | | | [phone] | | | | | | | | +--------+---------+ + + + | 04/05/ | Office | Cardiology | Andrade Hobbs, | | | 2019 | Visit | | MD Curtis ESPARZA | | | | | | [place] | | | | | | [address] | | | | | | | | +--------+---------+ + + + documented as of this encounter Procedures + +--------+ + + + | Procedure Name | Priori | Date/Time | Associated Diagnosis | Comments | | | ty | | | | + +--------+ + + + | ANE AIRWAY NOTE | Routin | 08/06/2019 | | Results for this | | | e | 1:28 PM | | procedure are in the | | | | PST | | results section. | + +--------+ + + + documented in this encounter Results Airway (08/06/2019 1:28 PM PST) + + + | Narrative | Performed At | + + + | Manan Self MD 08/06/2019 13:28 Anesthesia Airway | | | Placement 08/06/2019 13:16 Preprocedure check: patient identified, | | | oxygen, airway assessed, suction, airway equipment checked and | | | patient reassessment prior to induction Mask ventilation: easy | | | Attempts: 1 Airway type: laryngeal mask Size: 4 Cuffed: cuffed | | | Route, reference point: center of mouth Tube secured with: adhesive | | | tape Trauma: none Tube placement verification: bilateral chest rise, | | | equal bilateral breath sounds and carbon dioxide detection | | | Performing provider: Manan Self MD Comments: Atraumatic | | | LMA placement with quality seat and seal. Please see | | | intraoperative grid for any additional medication documentation. | | + + + + + | Procedure Note | + + | Manan Self MD - 08/06/2019 1:28 PM PST Anesthesia Airway | | Zyaalnxuj02/8/2019 13:16Preprocedure check: patient identified, oxygen, airway assessed, | | suction, airway equipment checked and patient reassessment prior to inductionMask | | ventilation: easyAttempts: 1Airway type: laryngeal maskSize: 4Cuffed: cuffedRoute, | | reference point: center of mouthTube secured with: adhesive tapeTrauma: noneTube | | placement verification: bilateral chest rise, equal bilateral breath sounds and carbon | | dioxide detectionPerforming provider: Manan Self MDComments: Atraumatic LMA | | placement with quality seat and seal.Please see intraoperative grid for any additional | | medication documentation. | |Route, reference point: center of mouth | |Tube secured with: adhesive tape | |Trauma: none | |Tube placement verification: bilateral chest rise, equal bilateral breath sounds and carbon dioxide detection | |Performing provider: Manan Self MD | | | |Comments: Atraumatic LMA placement with quality seat and seal. | | | | | | | |Please see intraoperative grid for any additional medication documentation. | + + documented in this encounter Visit Diagnoses Not on filedocumented in this encounter Administered Medications + +--------+ +------+------+------+ | Medication Order | MAR | Action | Dose | Rate | Site | | | Action | Date | | | | + +--------+ +------+------+------+ | dexamethasone (PF) 10 mg/mL | Given | 08/06/20 | 5 mg | | | | injection Intravenous, PRN, | | 19 1:23 | | | | | Starting 08/06/19 at 1323, | | PM PST | | | | | Anesthesia Intra-op | | | | | | + +--------+ +------+------+------+ +---+---+ | | | +---+---+ + +-------+ +------+---+---+ | ePHEDrine (AKOVAZ) 50 mg/mL | Given | 08/06/20 | 5 mg | | | | injection Intravenous, PRN, | | 19 2:11 | | | | | Starting 08/06/19 at 1411, | | PM PST | | | | | Anesthesia Intra-op | | | | | | + +-------+ +------+---+---+ +---+---+ | | | +---+---+ + +-------+ +-------+---+---+ | lidocaine (PF) 2% injection | Given | 08/06/20 | 75 mg | | | | Intravenous, PRN, Starting Fri | | 19 1:14 | | | | | 08/06/19 at 1314, Anesthesia | | PM PST | | | | | Intra-op | | | | | | + +-------+ +-------+---+---+ +---+---+ | | | +---+---+ + +-------+ +------+---+---+ | ondansetron (ZOFRAN) injection | Given | 08/06/20 | 4 mg | | | | Intravenous, PRN, Starting Fri | | 19 1:23 | | | | | 08/06/19 at 1323, Anesthesia | | PM PST | | | | | Intra-op | | | | | | + +-------+ +------+---+---+ +---+---+ | | | +---+---+ + +-------+ +--------+---+---+ | propofol (DIPRIVAN) injection | Given | 08/06/20 | 150 mg | | | | Intravenous, PRN, Starting Fri | | 19 1:14 | | | | | 08/06/19 at 1314, Anesthesia | | PM PST | | | | | Intra-op | | | | | | + +-------+ +--------+---+---+ +---+---+ | | | +---+---+ documented in this encounter"
--- OUTSIDE RECORDS SUMMARY | ~2020-02-05 | XMS | Encounter Summary ---
Demographics + + + | Address | [address] | | | [place] [address] | + + + | Home Phone | | + + + | Preferred Language | Unknown | + + + | Marital Status | | + + + | Baptist Affiliation | 1077 | + + + | Race | Unknown | + + + | Ethnic Group | Unknown | + + + Author + + + | Author | [facility] | | | and [place] | + + + | Organization | [facility] | | | and [place] | + + + | Address | Unknown | + + + | Phone | Unavailable | + + + Support + + + + + | Name | Relationship | Address | Phone | + + + + + | Aleida Ulloa | ECON | [address] | | | | | [place] | | | | | [address] | | + + + + + | Arin Ulloa | ECON | Unknown | | + + + + + Care Team Providers + +------+ + | Care Metalsmith Helper Name | Role | Phone | + +------+ + | Fabricio Bah | PCP | | | MD | | | + +------+ + Encounter Details +--------+ + + + + | Date | Type | Department | Care Team | Description | +--------+ + + + + | 11/27/ | Orders Only | [facility] | Conversion | | | 2016 | | RHEUMATOLOGY [address] | Transaction, | | | | | [address] | Provider Unknown | | | | | [place] | | | | | | [address] | (Fax) | | | | | [phone] | | | +--------+ + + + [...] | | | | | [place] [address] | | | | | | [phone] | | | | | | | | +--------+---------+ + + + | 04/05/ | Office | Cardiology | Andrade Hobbs, | | | 2019 | Visit | | MD Curtis ESPARZA | | | | | | [place] | | | | | | [address] | | | | | | | [...]
--- OUTSIDE RECORDS SUMMARY | ~2020-02-05 | XMS | Encounter Summary ---
Demographics + + + | Address | [address] | | | [place] [address] | + + + | Home Phone | | + + + | Preferred Language | Unknown | + + + | Marital Status | | + + + | Taoism Affiliation | 1077 | + + + | Race | Unknown | + + + | Ethnic Group | Unknown | + + + Author + + + | Author | [facility] | | | and [place] | + + + | Organization | [facility] | | | [...] [place] | | | | | [address] | | + + + + + | Arin Ulloa | ECON | Unknown | | + + + + + Care Team Providers + +------+ + | Care It Security Administrator Name | Role | Phone | [...] + + | 11/17/ | Refill | [facility] | Andrade Hobbs, | Medication Refill | | 2020 | | CARDIOLOGY [place] | MD Curtis ESPARZA | (Clopidogrel) | | | | [address] | [place], [place] | | | | | [place] [address] | [address] | | | | | [place] | | | | | | [address] | | | | | | [phone] | | | +--------+--------+ + + + [...] | | | | | [place] [address] | | | | | | [phone] | | | | | | | | +--------+---------+ + + + | 04/05/ | Office | Cardiology | Andrade Hobbs, | | | 2019 | Visit | | MD Curtis ESPARZA | | | | | | [place] | | | | | | [phone] | | | | | | | | +--------+---------+ + + + documented as of this encounter Visit Diagnoses Not on filedocumented in this encounter"
--- OUTSIDE RECORDS SUMMARY | ~2020-02-05 | XMS | Clinical Summary ---
Demographics + + + | Address | [address] | | | [place] [address] | + + + | Home Phone | | + + + | Preferred Language | Unknown | + + + | Marital Status | | + + + | Mormon Affiliation | 1077 | + + + | Race | Unknown | + + + | Ethnic Group | Unknown | + + + Author + + + | Author | [facility] (Historical as of | | | 05-15-19) | + + + | Organization | [facility] (Historical as of | | | 05-15-19) | + + + | Address | Unknown | + + + | Phone | Unavailable | + + + Support + + + + + | Name | Relationship | Address | Phone | + + + + + | Aleida Ulloa | ECON | [address] | | | | | [place] | | | | | [address] | | + + + + + Care Team Providers + +------+ + | Care Asset Card Clerk Name | Role | Phone | + +------+ + | Fabricio Bah MD | PP | | + +------+ + Allergies + + + + + + | Active Allergy | Reactions | Severity | Noted | Comments | | | | | Date | | + + + + + + | Adhesive Tape | Other (See Comments) | Medium | 07/31/20 | Adhesives in tape. | | | | | 17 | Skin very fragile. | + + + + + + | Pravastatin | Other (See Comments) | Medium | 07/31/20 | Myalgias, myositis | | | | | 17 | | + + + + + + Current Medications + + +--------+---------+------+------+-------+ | Prescription | Sig. | Disp. | Refills | Star | End | Statu | | | | | | t | Date | s | | | | | | Date | | | + + +--------+---------+------+------+-------+ | aspirin 81 MG | Take 81 mg by mouth | | | | | Activ | | tablet | daily. | | | | | e | + + +--------+---------+------+------+-------+ | predniSONE | Take 1-2 tablets | 60 | 2 | 07/0 | | Activ | | (DELTASONE) 5 MG | daily with breakfast | tablet | | 3/20 | | e | | tablet | | | | 18 | | | + + +--------+---------+------+------+-------+ | | Take 1 tablet by | | | | | Activ | | HYDROcodone-acetamin | mouth 2 (two) times | | | | | e | | ophen (NORCO) 5-325 | daily as needed for | | | | | | | MG per tablet | Pain. | | | | | | + + +--------+---------+------+------+-------+ | VITAMIN E PO | Take 1 tablet by | | | | | Activ | | | mouth daily. | | | | | e | + + +--------+---------+------+------+-------+ | metoprolol | Take 1 tablet by | 90 | 3 | 01/0 | | Activ | | (TOPROL-XL) 50 MG 24 | mouth daily. | tablet | | 8/20 | | e | | hr tablet | | | | 19 | | | + + +--------+---------+------+------+-------+ | isosorbide | Take 1 tablet by | 90 | 3 | 01/1 | | Activ | | mononitrate (IMDUR) | mouth daily. | tablet | | 6/20 | | e | | 60 MG 24 hr tablet | | | | 19 | | | + + +--------+---------+------+------+-------+ | clopidogrel | Take 1 tablet by | 90 | 3 | 01/3 | | Activ | | (PLAVIX) 75 MG | mouth daily. | tablet | | 0/20 | | e | | tablet | | | | 19 | | | + + +--------+---------+------+------+-------+ | Cholecalciferol | Take 1 tablet by | | | | | Activ | | (VITAMIN D PO) | mouth daily. | | | | | e | + + +--------+---------+------+------+-------+ | fish oil omega-3 | Take 1 g by mouth | | | | | Activ | | fatty acids 1000 MG | daily. | | | | | e | | capsule | | | | | | | + + +--------+---------+------+------+-------+ | nitroGLYCERIN | Place 1 tablet under | 25 | 11 | 04/0 | | Activ | | (NITROSTAT) 0.4 MG | the tongue every 5 | tablet | | 3/20 | | e | | SL tablet | (five) minutes as | | | 19 | | | | | needed for Chest | | | | | | | | pain. | | | | | | + + +--------+---------+------+------+-------+ | sulfaSALAzine | take 1 tablet by | 180 | 0 | 07/0 | | Activ | | (AZULFIDINE) 500 MG | mouth twice a day | tablet | | 1/20 | | e | | tablet | | | | 19 | | | + + +--------+---------+------+------+-------+ | predniSONE | TAKE 1 TABLET DAILY | 90 | 1 | 07/ | | Activ | | (DELTASONE) 5 MG | WITH BREAKFAST | tablet | | 6/20 | | e | | tablet | | | | 19 | | | + + +--------+---------+------+------+-------+ | lisinopril | TAKE 1 TABLET DAILY | 90 | 1 | 04/29 | | Activ | | (ZESTRIL) 10 MG | | tablet | | 0/20 | | e | | tablet | | | | 19 | | | + + +--------+---------+------+------+-------+ Active Problems + + + | Problem | Noted Date | + + + | Chronic systolic heart failure (HCC) | 10/14/2018 | + + + | [...] | + + + | Stable angina (HCC) | 04/17/2018 | + + + | Tobacco use disorder | 04/13/2018 | + + + + + | Overview: For past 65 years | + + + + + | 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) | | + + + | NSTEMI (non-ST elevated myocardial infarction) (HCC) | 04/07/2018 | + + + | Fatigue | 04/07/2018 | + + + | Asthma | 07/30/2017 | + + + | Combined form of senile cataract of left eye | 07/30/2017 | + + + | Cystoid macular edema, right eye | 07/30/2017 | + + + | Hearing loss | 07/30/2017 | + + + | Hyperlipidemia | 07/30/2017 | + + + | Hypertension | 07/30/2017 | + + + | Pseudophakia | 07/30/2017 | + + + | Retinal detachment with retinal defect of right eye | 07/30/2017 | + + + | 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 He has | | been on this medication for a number of years.Return to clinic in | | 6 months | + + + + + | Primary osteoarthritis involving multiple joints | 10/23/2015 | + + + + + | Last Assessment & Plan: Stable. Patient is taking OTC | | analgesics PRN for pain. | + + Resolved Problems + + + + | Problem | Noted | Resolved | | | Date | Date | + + + + | GI (gastrointestinal bleed) | 04/10/20 | | | | 18 | 8 | + + + + | Wound of skin | 02/04/20 | | | | 18 | 8 | + + + + + + | Last Assessment & Plan: The patient has a minor tear in his | | skin due to chronic steroid use and fragile skin - advised him to | | keep the area covered and use antibiotic cream and needed. | + + + + + + | History of acute myocardial infarction | 07/30/20 | | | | 17 | 8 | + + + + Social History + +-------+ +--------+------+ | Tobacco Use | Types | Packs/Day | Years | Date | | | | | Used | | + +-------+ +--------+------+ | Never Smoker | | | | | + +-------+ +--------+------+ + +---+---+---+ | Smokeless Tobacco: | | | | | Current User | | | | + +---+---+---+ + + | Tobacco Cessation: Ready to Quit: No; Counseling Given: Yes | + + + + +---------+ + | Alcohol Use | Drinks/We | oz/Week | Comments | | | ek | | | + + +---------+ + | Yes | | | occasional use | + + +---------+ + + + + | Sex Assigned at | Date Recorded | | | | + + + | Not on file | | + + + Last Filed Vital Signs + + + + | Vital Sign | Reading | Time Taken | + + + + | Blood Pressure | 124/72 | 04/21/2019 8:36 AM PDT | + + + + | Pulse | 53 | 04/21/2019 8:36 AM PDT | + + + + | Temperature | 36.7 C (98 F) | 12/28/2018 1:05 PM PDT | + + + + | Respiratory Rate | 20 | 04/13/2018 7:19 AM PDT | + + + + | Oxygen Saturation | 97% | 04/21/2019 8:36 AM PDT | + + + + | Inhaled Oxygen | - | - | | Concentration | | | + + + + | Weight | 78.4 kg (172 lb 14.4 | 04/21/2019 8:36 AM PDT | | | oz) | | + + + + | Height | 177.8 cm (5' 10") | 04/21/2019 8:36 AM PDT | + + + + | Body Mass Index | 24.81 | 04/21/2019 8:36 AM PDT | + + + + Plan of Treatment + + + + + | Health [...] | | | | | Pneumococcal 65+ | 9 | | | | Low/Medium Risk (1 | | | | | of 2 - PCV13) | | | | + + + + + | Vaccine: Influenza | | | | | (Season Ended) | 0 | | | + + + + + Results Not on filefrom Last 3 Months Insurance + +--------+ +------+-------+ + | Payer | Benefi | Subscriber | Type | Phone | Address | | | t Plan | ID | | | | | | / | | | | | | | Group | | | | | + +--------+ +------+-------+ + | MEDICARE | MEDICA | [id number] | | | [address] | | | RE | | | | [place] [address] | | | IP-OP | | | | | + +--------+ +------+-------+ + | PREMERA | PREMER | [id number] | | | [address] [address] | | | [employer] BLUE | | | | [place], [place] | | | [place] | | | | [address] | | | FED | | | | | | | PPO | | | | | + +--------+ +------+-------+ + + +--------+ +--------+ + + | Guarantor Name | Accoun | Relation to | Date | Phone | Billing Address | | | t Type | Patient | of | | | | | | | | | | + +--------+ +--------+ + + | BAYRON ULLOA | Person | Self [birth year] Home: | [address], [address] | | | al/Fam | | 1936 | [phone] | [place] | | | sonny | | | [phone] | [phone] | + +--------+ +--------+ + +
--- OUTSIDE RECORDS SUMMARY | ~2020-02-05 | XMS | Encounter Summary ---
Demographics + + + | Address | [address] | | | [place] [address] | + + + | Home Phone | | + + + | Preferred Language | Unknown | + + + | Marital Status | | + + + | Pentecostal Affiliation | 1077 | + + + | Race | Unknown | + + + | Ethnic Group | Unknown | + + + Author + + + | Author | [facility] | | | and [place] | + + + | Organization | [facility] | | | [...] [place] | | | | | [address] | | + + + + + | Arin Ulloa | ECON | Unknown | | + + + + + Care Team Providers + +------+ + | Care Public Service Director Name | Role | Phone | [...] | | | CARDIAC TELEMETRY | [address], [place] | | | 03/18/ | | [address] | [address] | | | 2001 | | [place], [place] | | | | | | [address] | | | | | | [phone] | | | +--------+ + + + [...] | | | | | [place] [address] | | | | | | [phone] | | | | | | | | +--------+---------+ + + + | 04/05/ | Office | Cardiology | Andrade Hobbs, | | | 2019 | Visit | | MD Curtis ESPARZA | | | | | | [place] | | | | | | [phone] | | | | | | | | +--------+---------+ + + + documented as of this encounter Visit Diagnoses Not on filedocumented in this encounter"
--- OUTSIDE RECORDS SUMMARY | ~2020-02-05 | XMS | Encounter Summary ---
Demographics + + + | Address | [address] | | | [place] [address] | + + + | Home Phone | | + + + | Preferred Language | Unknown | + + + | Marital Status | | + + + | Mu-Ism Affiliation | 1077 | + + + | Race | Unknown | + + + | Ethnic Group | Unknown | + + + Author + + + | Author | [facility] | | | and [place] | + + + | Organization | [facility] | | | [...] [place] | | | | | [address] | | + + + + + | Arin Ulloa | ECON | Unknown | | + + + + + Care Team Providers + +------+ + | Care License Registration Examiner Name | Role | Phone | + +------+ + PCP | Unavailable | + +------+ + Encounter Details +--------+ + + + + | Date | Type | Department | Care Team | Description | +--------+ + + + + | 09/10/ | Hospital | [facility] | Aleida Marino, | | | 2005 | Encounter | [facility] | MD [address] | | | | | [address] | [place] | | | | | [place] | [id number] | | | | | [address] | | | | | | [phone] | | | +--------+ + + + [...] | | | | | [place] [address] | | | | | | [phone] | | | | | | | | +--------+---------+ + + + | 04/05/ | Office | Cardiology | Andrade Hobbs, | | | 2019 | Visit | | MD Curtis ESPARZA | | | | | | [place] | | | | | | [phone] | | | | | | | [...] + + + | [facility] | [address] | [place] [address] | | | [facility] | | [...]
--- OUTSIDE RECORDS SUMMARY | ~2020-02-05 | XMS | Encounter Summary ---
Demographics + + + | Address | [address] | | | [place] [address] | + + + | Home Phone | | + + + | Preferred Language | Unknown | + + + | Marital Status | | + + + | Sabianism Affiliation | 1077 | + + + [...] [place] | | | | | [address] | | + + + + + | Arin Ulloa | ECON | Unknown | | + + + + + Care Team Providers + +------+ + | Care High Density Press Operator Name | Role | Phone | + +------+ + | Fabricio Bah | PCP | | | MD | | | + +------+ + Reason for Visit + + + | Reason | Comments | + + + | Medication Refill | Metoprolol | + + + Encounter Details +--------+--------+ + + + | Date | Type | Department | Care Team | Description | +--------+--------+ + + + | 07/26/ | Refill | [facility] | Addi Nix, | Medication Refill | | 2018 | | CARDIOLOGY [place] | Disability Counselor | (Metoprolol) | | | | [address] | | | | | | [place], [place] | | | | | | [address] | | | | | | [phone] | | | +--------+--------+ + + + [...] 2019 | Visit | | [address] | | | | | | [address] | | | | | | [place] [address] | | | | | | [phone] | | | | | | | | +--------+---------+ + + + | 04/05/ | Office | Cardiology | Andrade Hobbs, | | | 2019 | Visit | | MD Curtis ESPARZA | | | | | | [place] | | | | | | [address] | | | | | | | | +--------+---------+ + + + documented as of this encounter Visit Diagnoses Not on filedocumented in this encounter"
--- OUTSIDE RECORDS SUMMARY | ~2020-02-05 | XMS | Encounter Summary ---
Demographics + + + | Address | [address] | | | [place] [address] | + + + | Home Phone | | + + + | Preferred Language | Unknown | + + + | Marital Status | | + + + | Oriental Orthodox Affiliation | 1077 | + + + | Race | Unknown | + + + | Ethnic Group | Unknown | + + + Author + + + | Author | [facility] | | | and [place] | + + + | Organization | [facility] | | [...] [place] | | | | | [address] | | + + + + + | Arin Ulloa | ECON | Unknown | | + + + + + Care Team Providers + +------+ + | Care Sales Agent Pest Control Service Name | Role | Phone | + +------+ + PCP | Unavailable | + +------+ + Encounter Details +--------+ + + + + | Date | Type | Department | Care Team | Description | +--------+ + + + + | 10/15/ | Hospital | [facility] | Divya Ochoa | | | 2001 | Encounter | [facility] | R | | | | | CONVERSION | | | | | | DEPARTMENT [address] | | | | | | [address] | | | | | | [place] | | | | | | [address] | | | | | | [phone] | | | +--------+ + + + [...] | | | | | [place] [address] | | | | | | [phone] | | | | | | | | +--------+---------+ + + + | 04/05/ | Office | Cardiology | Andrade Hobbs, | | | 2019 | Visit | | MD Curtis ESPARZA | | | | | | [place] | | | | | | [id number] | | | | | | | | +--------+---------+ + + + documented as of this encounter Visit Diagnoses Not on filedocumented in this encounter"
--- OUTSIDE RECORDS SUMMARY | ~2020-02-05 | XMS | Encounter Summary ---
Demographics + + + | Address | [address] | | | [place] [address] | + + + | Home Phone | | + + + | Preferred Language | Unknown | + + + | Marital Status | | + + + | Pentecostal Affiliation | 1077 | + + + | Race | Unknown | + + + | Ethnic Group | Unknown | + + + Author + + + | Author | [facility] | | | and [place] | + + + | Organization | [facility] | | | and [...] [place] | | | | | [address] | | + + + + + | Arin Ulloa | ECON | Unknown | | + + + + + Care Team Providers + +------+ + | Care Furniture Servicer Name | Role | Phone | + +------+ + PCP | Unavailable | + +------+ + Encounter Details +--------+ + + + + | Date | Type | Department | Care Team | Description | +--------+ + + + + | 03/10/ | Hospital | [facility] | Sathish Appiah S | | | 1999 | Encounter | [facility] | MD | | | | | GENERIC CONV DEPT | | | | | | [address] | | | | | | [place] | | | | | | [address] | | | | | | [phone] | | | +--------+ + + + [...] | | | | | [place] [address] | | | | | | [phone] | | | | | | | | +--------+---------+ + + + | 04/05/ | Office | Cardiology | Andrade Hobbs, | | | 2019 | Visit | | MD Curtis ESPARZA | | | | | | [place] | | | | | | [id number] | | | | | | | | +--------+---------+ + + + documented as of this encounter Visit Diagnoses Not on filedocumented in this encounter"
--- OUTSIDE RECORDS SUMMARY | ~2020-02-05 | XMS | Encounter Summary ---
Demographics + + + | Address | [address] | | | [place] [address] | + + + | Home Phone | | + + + | Preferred Language | Unknown | + + + | Marital Status | | + + + | Jewish Affiliation | 1077 | + + + | Race | Unknown | + + + | Ethnic Group | Unknown | + + + Author + + + | Author | [facility] | | | and [place] | + + + | Organization | [facility] | | | [...] [place] | | | | | [address] | | + + + + + | Arin Ulloa | ECON | Unknown | | + + + + + Care Team Providers + +------+ + | Care Mine Patrol Name | Role | Phone | + +------+ + PCP | Unavailable | + +------+ + Encounter Details +--------+ + + + + | Date | Type | Department | Care Team | Description | +--------+ + + + + | 03/10/ | Hospital | [facility] | Sathish Appiah S | | | 1999 | Encounter | HEART MED CTR | | | | | | LABORATORY [address] | | | | | | [address] [place] | | | | | | [address] | | | | | | [phone] | | | +--------+ + + + [...] | | | | | [place] [address] | | | | | | [phone] | | | | | | | | +--------+---------+ + + + | 04/05/ | Office | Cardiology | Andrade Hobbs, | | | 2019 | Visit | | MD Curtis ESPARZA | | | | | | [place] | | | | | | [id number] | | | | | | | | +--------+---------+ + + + documented as of this encounter Visit Diagnoses Not on filedocumented in this encounter"
--- OUTSIDE RECORDS SUMMARY | ~2020-02-05 | XMS | Encounter Summary ---
Demographics + + + | Address | [address] | | | [place] [address] | + + + | Home Phone | | + + + | Preferred Language | Unknown | + + + | Marital Status | | + + + | Church Affiliation | 1077 | + + + | Race | Unknown | + + + | Ethnic Group | Unknown | + + + Author + + + | Author | [facility] | | | and [place] | + + + | Organization | [facility] | | [...] [place] | | | | | [address] | | + + + + + | Arin Ulloa | ECON | Unknown | | + + + + + Care Team Providers + +------+ + | Care Psychiatric Aides Teacher Name | Role | Phone | + +------+ + PCP | Unavailable | + +------+ + Encounter Details +--------+ + + + + | Date | Type | Department | Care Team | Description | +--------+ + + + + | 08/29/ | Hospital | [facility] | Derrek Darnell | | | 2000 | Encounter | DEB[facility] GENERIC | MD Zack [place] | | | | | CONVERSION | [facility] | | | | | DEPARTMENT [address] | [address] | | | | | [facility] | Road [place], [place] | | | | | [place], [place] | [id number] | | | | | [address] | | | | | | [phone] | | | +--------+ + + + [...] | | | | | [place] [address] | | | | | | [phone] | | | | | | | | +--------+---------+ + + + | 04/05/ | Office | Cardiology | Andrade Hobbs, | | | 2019 | Visit | | MD Curtis ESPARZA | | | | | | [place] | | | | | | [id number] | | | | | | | | +--------+---------+ + + + documented as of this encounter Visit Diagnoses Not on filedocumented in this encounter"
--- OUTSIDE RECORDS SUMMARY | ~2020-02-05 | XMS | Encounter Summary ---
Demographics + + + | Address | [address] | | | [place] [address] | + + + | Home Phone | | + + + | Preferred Language | Unknown | + + + | Marital Status | | + + + | Congregation Affiliation | 1077 | + + + | Race | Unknown | + + + | Ethnic Group | Unknown | + + + Author + + + | Author | [facility] | | | and [place] | + + + | Organization | [facility] | | | [...] [place] | | | | | [address] | | + + + + + | Arin Ulloa | ECON | Unknown | | + + + + + Care Team Providers + +------+ + | Care Geography Instructor Name | Role | Phone | + [...] + + | 08/04/ | Office | [facility] | DevinAndrade, | Stable angina (HCC) | | 2019 | Visit | CARDIOLOGY [place] | MD Curtis ESPARZA | (Primary Dx); | | | | [address] | [place], [place] | Chronic systolic | | | | [address] | [address] | heart failure (HCC); | | | | [place] | | Essential | | | | [address] | | hypertension; | | | | [phone] | | Coronary artery | | | | | | disease of bypass | | | | | | graft of [place] | | | | | | heart [...] having increased fatigue lately. Last hospitalization in [facility] on 07 April 2018 secondary to non-ST elevation WI. 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 MACHINE PACKER of [place]. Patent RAM to LAD. Severe [...] 2019 | Visit | | Tiff Reina [facility] [address] | | | | | | [address] | | | | | | [place] [address] | | | | | | [phone] | | | | | | | | +--------+---------+ + + + | 04/05/ | Office | Cardiology | Andrade Garcia, | | 2019 | Visit | | MD Curtis ESPARZA | | | | | | [place] | | | | | | [address] | | | | | | | [...] Coronary artery disease of bypass graft of [place] heart with stable angina pectoris | | (HCC) | + + documented in this encounter
--- OUTSIDE RECORDS SUMMARY | ~2020-02-05 | XMS | Encounter Summary ---
Demographics + + + | Address | [address] | | | [place] [address] | + + + | Home Phone [...] [place] | | | | | [address] | | + + + + + | Arin Ulloa | ECON | Unknown | | + + + + + Care Team Providers + +------+ + | Care Agricultural Science Professor Name | Role | Phone | + [...] | | | | | [address] | [address] [facility] | | | | | [place], [place] | [place] [address] | | | | | [address] | [phone] | | | | | [phone] | | | +--------+ + + + [...] 08/06/19 1627 by | | eral | cwjf-olw-lnllth catheter system; | Vira Carney, | Fabricio [...] 2019 | Visit | | [address] | | | | | | [address] | | | | | | [place] [address] | | | | | | [phone] | | | | | | | | +--------+---------+ + + + | 04/05/ | Office | Cardiology | Andrade Hobbs, | | | 2019 | Visit | | MD Curtis ESPARZA | | | | | | [place] | | | | | | [address] | | | | | | | [...] 1:28 PM PST Anesthesia Airway | | [id number]/8/2019 13:16Preprocedure check: patient identified, oxygen, airway assessed, [...]
--- OUTSIDE RECORDS SUMMARY | ~2020-02-05 | XMS | Clinical Summary ---
Demographics + + + | Address | [address] | | | [place] [address] | + + + | Home Phone | | + + + | Preferred Language | Unknown | + + + | Marital Status | | + + + | Uatsdin Affiliation | 1077 | + + + | Race | Unknown | + + + | Ethnic Group | Unknown | + + + Author + + + | Author | [facility] [employer] (Historical as of | | | 05-15-19) | + + + | Organization | [facility] (Historical as of | | | 05-15-19) [...] [place] | | | | | [address] | | + + + + + Care Team Providers + +------+ + | Care Hand Turner Name | Role | Phone | + [...] Coronary artery disease of bypass graft of [place] heart with | 04/07/2018 | | stable [...] +------+-------+ + | MEDICARE | MEDICA | [id number] | | | [address] | | | RE | | | | [place] [address] | | | IP-OP | | | | | + +--------+ +------+-------+ + | PREMERA | PREMER | [id number] | | | [address] [address] | | | A BLUE | | | | [place], [place] | | | CROSS | | | | [address] | | | FED | | | [...] Self | [birth year] | Home: | [address] | | | al/Fam | | 1936 | [phone] | [place] | | | sonny | | | [address] | [address] | + +--------+ +--------+ + +
--- OUTSIDE RECORDS SUMMARY | ~2020-02-05 | XMS | Encounter Summary ---
Demographics + + + | Address | [address] | | | [place] [address] | + + + | Home Phone [...] [place] | | | | | [address] | | + + + + + | Arin Ulloa | ECON | Unknown | | + + + + + Care Team Providers + +------+ + | Care Photographer Still Name | Role | Phone | + [...] Provider Unknown | | | | | [facility] | [phone] | | | | | [address] | | | | | | [phone] | | | +--------+ + + + [...] | | | | | [place] [address] | | | | | | [phone] | | | | | | | | +--------+---------+ + + + | 04/05/ | Office | Cardiology | Andrade Hobbs, | | | 2019 | Visit | | MD Curtis ESPARZA | | | | | | [place] | | | | | | [address] | | | | | | | | +--------+---------+ + + + documented as of this encounter Visit Diagnoses Not on filedocumented in this encounter"
--- OUTSIDE RECORDS SUMMARY | ~2020-02-05 | XMS | Encounter Summary ---
Demographics + + + | Address | [address] | | | [place] [address] | + + + | Home Phone | | + + + | Preferred Language | Unknown | + + + | Marital Status | | + + + | Judaism Affiliation | 1077 | + + + | Race | Unknown | + + + | Ethnic Group | Unknown | + + + Author + + + | Author | [facility] | | | and [place] | + + + | Organization | [facility] | | [...] [place] | | | | | [address] | | + + + + + | Arin Ulloa | ECON | Unknown | | + + + + + Care Team Providers + +------+ + | Care Manager Electrical Name | Role | Phone | + +------+ + | Fabircio Bah | PCP | | | MD | | | + +------+ + Encounter Details +--------+ + + + + | Date | Type | Department | Care Team | Description | +--------+ + + + + | 01/09/ | Documentati | [facility] | Andrade Hobbs, | | | 2020 | on | CARDIOLOGY [place] | [address] | | | | | [address] | [place], [place] | | | | | [place], [place] | [address] | | | | | [address] | | | | | | [phone] | | | +--------+ + + + [...] documented as of this encounter Progress Notes nAdrade Hobbs MD - 01/10/2020 2:18 PM PDTCalled [...] | | | | | [place] [address] | | | | | | [phone] | | | | | | | | +--------+---------+ + + + | 04/05/ | Office | Cardiology | Andrade Hobbs, | | | 2019 | Visit | | MD Curtis ESPARZA | | | | | | [place] | | | | | | [id number] | | | | | | | | +--------+---------+ + + + documented as of this encounter Visit Diagnoses Not on filedocumented in this encounter"
--- OUTSIDE RECORDS SUMMARY | ~2020-02-05 | XMS | Encounter Summary ---
Demographics + + + | Address | [address] | | | [place] [address] | + + + | Home Phone | | + + + | Preferred Language | Unknown | + + + | Marital Status | | + + + | Scientologist Affiliation | 1077 | + + + | Race | Unknown | + + + | Ethnic Group | Unknown | + + + Author + + + | Author | [facility] | | | and [place] | + + + | Organization | [facility] | | | [...] [place] | | | | | [address] | | + + + + + | Arin Ulloa | ECON | Unknown | | + + + + + Care Team Providers + +------+ + | Care Political Geographer Name | Role | Phone | + [...] + + | 08/02/ | Office | [facility] | Roxi, | Rheumatoid arthritis | | 2019 | Visit | RHEUMATOLOGY [address] | [address] | of multiple sites | | | | [address] | [address] | with negative | | | | 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 If you have any questions you can send us a message/request using [employer] or call our o ffice at [phone]. To reach Maki FABIAN type extension [phone]. If you are unable to reach a [...] can also look at your results on Kchart. If you are experiencing an emergency, please [...] headaches. Psychiatric/Behavioral: The patient is not nervous/anxious. I, Tiff VILLARREAL, reviewed the above ROS, all other systems [...] behavior is normal. AGUILAR-28 (ESR): 1.01 (Remission) I Maki FABIAN am personally using the homunculus tool during Tiff LE patient exam. Labs reviewed in [facility] --12/28/2018 Reviewed chart notes, labs and imaging form other provider(s) since the last visit. Assessment and Plan: Visit Diagnoses and Associated Orders: Rheumatoid arthritis of multiple sites with negative rheumatoid factor (HCC) (Primary) Assessment & Plan: No clinical evidence of active disease on today's exam. Responding well to current treatment plan. No change in treatment plan. 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 senior living systemic steroid user Assessment & Plan: Steroids: [...] symptoms. This document has been prepared with [employer] voice recognition system. The possibility of "s ound alike" vascular technician errors, and additions, or deletions may occur. If there is any que stion with respect to clarity of the message being conveyed, please contact me directly for clarification. documented in this encounter Plan of Treatment +--------+---------+ + + + | Date | Type | Specialty | Care Team | Description | +--------+---------+ + + + | 03/20/ | Office | Rheumatology | Roxi, | | | 2019 | Visit | | [address] | | | | | | [address] | | | | | | [place] [address] | | | | | | [phone] | | | | | | | | +--------+---------+ + + + | 04/05/ | Office | Cardiology | Lobo Hobbsjosé miguel, | | | 2019 | Visit | | MD Curtis ESPARZA | | | | | | [place], [place] | | | | | | [address] | | | | | | | | +--------+---------+ + + + documented as of this encounter Visit Diagnoses + + | Diagnosis | + + | Rheumatoid arthritis of multiple sites with negative rheumatoid factor (HCC) - Primary | + + | High risk medication use Encounter for long-term (current) use of other medications | + + | senior living systemic steroid user | + + documented in this encounter
--- OUTSIDE RECORDS SUMMARY | ~2020-02-05 | XMS | Encounter Summary ---
Demographics + + + | Address | [address] | | | [place] [address] | + + + | Home Phone | | + + + | Preferred Language | Unknown | + + + | Marital Status | | + + + | Jainism Affiliation | 1077 | + + + | Race | Unknown | + + + | Ethnic Group | Unknown | + + + Author + + + | Author | [facility] | | | and [place] | + + + | Organization | [facility] | [...] [place] | | | | | [address] | | + + + + + | Arin Ulloa | ECON | Unknown | | + + + + + Care Team Providers + +------+ + | Care Glaze Sprayer Name | Role | Phone | + [...] + + | 10/03/ | Refill | [facility] | Schiefelbein, | Medication Refill | | 2020 | | RHEUMATOLOGY [address] | Tiff Reina, [facility] [address] | | | | | [address] | [address] | | | | | [place], [place] | [place] [address] | | | | | [address] | [phone] | | | | | [phone] | | | +--------+--------+ + + + [...] | | | | | [place] [address] | | | | | | [phone] | | | | | | | | +--------+---------+ + + + | 04/05/ | Office | Cardiology | Andrade Hobbs, | | | 2019 | Visit | | MD Curtis ESPARZA | | | | | | [place] | | | | | | [address] | | | | | | | | +--------+---------+ + + + documented as of this encounter Visit Diagnoses Not on filedocumented in this encounter"
--- OUTSIDE RECORDS SUMMARY | ~2020-02-05 | XMS | Encounter Summary ---
Demographics + + + | Address | [address] | | | [place] [address] | + + + | Home Phone [...] [place] | | | | | [address] | | + + + + + | Arin Ulloa | ECON | Unknown | | + + + + + Care Team Providers + +------+ + | Care Statistical Machine Servicer Name | Role | Phone | [...] + + | 09/18/ | Refill | [facility] | Schiefelbein, | Medication Refill | | 2019 | | RHEUMATOLOGY [address] | Tiff Reina, [facility] [address] | | | | | [address] | [address] | | | | | [place], [place] | [place] [address] | | | | | [address] | [phone] | | | | | [phone] | | | +--------+--------+ + + + [...] | | | | | | [place] [address] | | | | | | [phone] | | | | | | | | +--------+---------+ + + + | 04/05/ | Office | Cardiology | Andrade Hobbs, | | | 2019 | Visit | | MD Curtis ESPARZA | | | | | | [place] | | | | | | [address] | | | | | | | | +--------+---------+ + + + documented as of this encounter Visit Diagnoses + + | Diagnosis | + + | Rheumatoid arthritis of multiple sites with negative rheumatoid factor (HCC) - Primary | + + documented in this encounter"
--- OUTSIDE RECORDS SUMMARY | ~2020-02-05 | XMS | Encounter Summary ---
Demographics + + + | Address | [address] | | | [place] [address] | + + + | Home Phone | | + + + | Preferred Language | Unknown | + + + | Marital Status | | + + + | Adventism Affiliation | 1077 | + + + [...] [place] | | | | | [address] | | + + + + + | Arin Ulloa | ECON | Unknown | | + + + + + Care Team Providers + +------+ + | Care Provider Relations Advocate Name | Role | Phone | + +------+ + PCP | Unavailable | + +------+ + Encounter Details +--------+ + + + + | Date | Type | Department | Care Team | Description | +--------+ + + + + | 03/21/ | Hospital | [facility] | Derrek Darnell | | | 1999 | Encounter | [facility] | MD Zack [place] | | | | | [address] | [facility] | | | | | [place], [place] | [address] | | | | | [address] | Road [place], [place] | | | | | [phone] | [address] | | | | | [...] | | | | | [place] [address] | | | | | | [phone] | | | | | | | | +--------+---------+ + + + | 04/05/ | Office | Cardiology | Andrade Hobbs, | | | 2019 | Visit | | MD Curtis ESPARZA | | | | | | [place] | | | | | | [id number] | | | | | | | | +--------+---------+ + + + documented as of this encounter Visit Diagnoses Not on filedocumented in this encounter"
--- OUTSIDE RECORDS SUMMARY | ~2020-02-05 | XMS | Encounter Summary ---
Demographics + + + | Address | [address] | | | [place] [address] | + + + | Home Phone | | + + + | Preferred Language | Unknown | + + + | Marital Status | | + + + | Yazdanism Affiliation | 1077 | + + + | Race | Unknown | + + + | Ethnic Group | Unknown | + + + Author + + + | Author | [facility] | | | and [place] | + + + | Organization | [facility] | | [...] [place] | | | | | [address] | | + + + + + | Arin Ulloa | ECON | Unknown | | + + + + + Care Team Providers + +------+ + | Care Medical Reviewer Name | Role | Phone | + [...] + + | 10/03/ | Refill | [facility] | Schiefelbein, | Medication Refill | | 2020 | | RHEUMATOLOGY [address] | Tiff Reina, [facility] [address] | | | | | [address] | [address] | | | | | [place], [place] | [place] [address] | | | | | [address] | [phone] | | | | | [phone] | | | +--------+--------+ + + + [...] | | | | | [place] [address] | | | | | | [phone] | | | | | | | | +--------+---------+ + + + | 04/05/ | Office | Cardiology | Andrade Hobbs, | | | 2019 | Visit | | MD Curtis ESPARZA | | | | | | [place] | | | | | | [address] | | | | | | | | +--------+---------+ + + + documented as of this encounter Visit Diagnoses Not on filedocumented in this encounter"
--- OUTSIDE RECORDS SUMMARY | ~2020-02-05 | XMS | Encounter Summary ---
Demographics + + + | Address | [address] | | | [place] [address] | + + + | Home Phone | | + + + | Preferred Language | Unknown | + + + | Marital Status | | + + + | Mu-Ism Affiliation | Unknown | + + + | Race | White | + + + | Ethnic Group | Not or | + + + Author + + + | Author | [facility] | + + + | Organization | [facility] | + + + | Address | Unknown | + + + | Phone | Unavailable | + + + Care Team Providers + +------+ + | Care Jacquard Loom Fixer Name | Role | Phone | + +------+ + PCP | Unavailable | + +------+ + Encounter Details +--------+ + + + + | Date | Type | Department | Care Team | Description | +--------+ + + + + | 03/09/ | Documentati | UNKNOWN DEPARTMENT | Unknown . | | | 2018 | on | [address] | | | | | | [place]ull[place] | | | | | | [place], [place] | | | | | | [address] | | | +--------+ + + + [...]
--- OUTSIDE RECORDS SUMMARY | ~2020-02-05 | XMS | Encounter Summary ---
Demographics + + + | Address | [address] | | | [place] [address] | + + + | Home Phone | | + + + | Preferred Language | Unknown | + + + | Marital Status | | + + + | Latter-Day Affiliation | 1077 | + + + | Race | Unknown | + + + | Ethnic Group | Unknown | + + + Author + + + | Author | [facility] | | | and [place] | + + + | Organization | [facility] | | | [...] [place] | | | | | [address] | | + + + + + | Arin Ulloa | ECON | Unknown | | + + + + + Care Team Providers + +------+ + | Care Drywall Carrier Name | Role | Phone | + +------+ + PCP | Unavailable | + +------+ + Encounter Details +--------+ + + + + | Date | Type | Department | Care Team | Description | +--------+ + + + + | 06/05/ | Hospital | [facility] | Anthony Juarez, | | | 1999 | Encounter | [facility] | MD [address] | | | | | LABORATORY [address] | [address] [place], | | | | | [address] [place], [place] | [place] [address] | | | | | [address] | [phone] | | | | | [phone] | | | +--------+ + + + [...] | | | | | [place] [address] | | | | | | [phone] | | | | | | | | +--------+---------+ + + + | 04/05/ | Office | Cardiology | Andrade Hobbs, | | | 2019 | Visit | | MD Curtis ESPARZA | | | | | | [place] | | | | | | [address] | | | | | | | | +--------+---------+ + + + documented as of this encounter Visit Diagnoses Not on filedocumented in this encounter"
--- OUTSIDE RECORDS SUMMARY | ~2020-02-05 | XMS | Encounter Summary ---
Demographics + + + | Address | [address] | | | [place] [address] | + + + | Home Phone [...] [place] | | | | | [address] | | + + + + + | Arin Ulloa | ECON | Unknown | | + + + + + Care Team Providers + +------+ + | Care Staffing Manager Name | Role | Phone | + +------+ + PCP | Unavailable | + +------+ + Encounter Details +--------+ + + + + | Date | Type | Department | Care Team | Description | +--------+ + + + + | 09/26/ | Hospital | [facility] | Derrek Darnell | | | 1997 | Encounter | [facility] | Zack Lucinda | | | | | [address] | [facility] | | | | | [place], [place] | [address] | | | | | [address] | Road [place], [place] | | | | | [phone] | [address] | | | | | [...] | | | | | [place] [address] | | | | | | [phone] | | | | | | | | +--------+---------+ + + + | 04/05/ | Office | Cardiology | Andrade Hobbs, | | | 2019 | Visit | | MD Curtis ESPARZA | | | | | | [place] | | | | | | [id number] | | | | | | | | +--------+---------+ + + + documented as of this encounter Visit Diagnoses Not on filedocumented in this encounter"
--- OUTSIDE RECORDS SUMMARY | ~2020-02-05 | XMS | Encounter Summary ---
Demographics + + + | Address | [address] | | | [place] [address] | + + + | Home Phone [...] [place] | | | | | [address] | | + + + + + | Arin Ulloa | ECON | Unknown | | + + + + + Care Team Providers + +------+ + | Care Carpet Installer Helper Name | Role | Phone | [...] Provider Unknown | | | | | [place] | [phone] | | | | | [address] | | | | | | [phone] | | | +--------+ + + + [...] | | | | | [place] [address] | | | | | | [phone] | | | | | | | | +--------+---------+ + + + | 04/05/ | Office | Cardiology | Andrade Hobbs, | | | 2019 | Visit | | MD Curtis ESPARZA | | | | | | [place] | | | | | | [address] | | | | | | | | +--------+---------+ + + + documented as of this encounter Visit Diagnoses Not on filedocumented in this encounter"
--- OUTSIDE RECORDS SUMMARY | ~2020-02-05 | XMS | Encounter Summary ---
Demographics + + + | Address | [address] | | | [place] [address] | + + + | Home Phone [...] [place] | | | | | [address] | | + + + + + | Arin Ulloa | ECON | Unknown | | + + + + + Care Team Providers + +------+ + | Care Subway Conductor Name | Role | Phone | + +------+ + PCP | Unavailable | + +------+ + Encounter Details +--------+ + + + + | Date | Type | Department | Care Team | Description | +--------+ + + + + | 08/04/ | Hospital | [facility] | Derrek Darnell | | | 1998 | Encounter | [facility] | MD [place] | | | | | CONVERSION | [facility] | | | | | DEPARTMENT [address] | [address] | | | | | [facility] | Road [place], [place] | | | | | [place], [place] | [id number] | | | | | [address] | | | | | | [phone] | | | +--------+ + + + [...] | | | | | [place] [address] | | | | | | [phone] | | | | | | | | +--------+---------+ + + + | 04/05/ | Office | Cardiology | Andrade Hobbs, | | | 2019 | Visit | | MD Curtis ESPARZA | | | | | | [place] | | | | | | [id number] | | | | | | | | +--------+---------+ + + + documented as of this encounter Visit Diagnoses Not on filedocumented in this encounter"
--- OUTSIDE RECORDS SUMMARY | ~2020-02-05 | XMS | Encounter Summary ---
Demographics + + + | Address | [address] | | | [place] [address] | + + + | Home Phone | | + + + | Preferred Language | Unknown | + + + | Marital Status | | + + + | Yazdanism Affiliation | 1077 | + + + | Race | Unknown | + + + | Ethnic Group | Unknown | + + + Author + + + | Author | [facility] | | | and [place] | + + + | Organization | [facility] | | [...] [place] | | | | | [address] | | + + + + + | Arin Ulloa | ECON | Unknown | | + + + + + Care Team Providers + +------+ + | [employer] Executive Cloud Sales Name | Role | Phone | + +------+ + | Fabricio Bah | PCP | | | MD | | | + +------+ + Encounter Details +--------+ + + + + | Date | Type | Department | Care Team | Description | +--------+ + + + + | 04/13/ | Orders Only | [facility] | Rox[place], | | | 2019 | | RHEUMATOLOGY [address] | [address] | | | | | [address] | [address] | | | | | [place], [place] | [place] [address] | | | | | [address] | [phone] | | | | | [phone] | | | +--------+ + + + [...] | | | | | [place] [address] | | | | | | [phone] | | | | | | | | +--------+---------+ + + + | 04/05/ | Office | Cardiology | Andrade Hobbs, | | | 2019 | Visit | | MD Curtis ESPARZA | | | | | | [place] | | | | | | [address] | | | | | | | | +--------+---------+ + + + documented as of this encounter Visit Diagnoses Not on filedocumented in this encounter"
--- OUTSIDE RECORDS SUMMARY | ~2020-02-05 | XMS | Encounter Summary ---
Demographics + + + | Address | [address] | | | [place] [address] | + + + | Home Phone [...] [place] | | | | | [address] | | + + + + + | Arin Ulloa | ECON | Unknown | | + + + + + Care Team Providers + +------+ + | Care Intermission Coordinator Name | Role | Phone | + +------+ + PCP | Unavailable | + +------+ + Encounter Details +--------+ + + + + | Date | Type | Department | Care Team | Description | +--------+ + + + + | 04/07/ | Hospital | [facility] | Wade Lake DO | | | 2018 - | Encounter | [facility] | [address] | | | | | CARE FLOOR [address] | [place] [address] | | | 04/13/ | | [address] | [phone] | | | 2017 | | [place], [place] | | | | | | [address] | | | | | | [phone] | | | +--------+ + + + [...] 1557 Date of Service: 04/13/1848 Status: Signed Machine Coil Assembler: John Herring MD (Physician) Related Notes: Original Note by John Herring MD (Physician) filed at 04/13/18 1059 [facility] Service: Hospitalist Physician Discharge Summary Patient [...] of present illness: came to ED at [facility] in [place], [place] today mckay use of sudden onset [...] patient's cardiac history and requested transfer to [facility] for further workup. The patient has had multiple HI's in the past and had 2 CABG's, as well. He used to follow with Dr Jenkins, who has now retired. He hasn't established care with a new collector of port vicky borrego "everything's been going well." He [...] the RAM graft as well as the seneca artery. 7. Two saphenous vein grafts to [...] Lake on 04/07 Mr. Ulloa presented to [facility] on 04/07/2018 with chief diagnosis of a non-ST elevation HI in the context of rheumatoid arthritis (on [...] ramus, with extension of the thrombus to seneca ramus. Due t o extensive coronary artery [...] of EGD due to recent non-ST elevation HI. The patient did well with conservative therapy, [...] Hobbs (the [facility] to [facility] Hobbs) in [place] where the patient prefers to see collector of port. T he patient lives in the [place] area. Throughout this hospitalization the patient was managed from the cardiology standpoint by Romero Scales, whose care and recommendations were greatly appreciated, along with Dr. Warren , who performed cardiac catheterization. At the present time the patient will not proceed with any endoscopic GI evaluation due to b eing high risk for any anesthesia-based procedures following his non-ST elevation HI [facility] ed. Prior to discharge patient was given K replacement 40 mEq po qday and daily dose 20 mEq per day was provided for the patient. Recommend to recheck BMP with electrolytes and CBC shanin g follow up visit in 1-2 weeks. Please note that : Patient was previously given prescription for Brilianta ( script was e- scripted to [facility] mail pharmacy in [facility] ) by Dr. Warren but due to patient's GI blood loss this medication has been cancelled and the recommendation is for the patient to contin ue combination of ASA/Plavix for now. I personally called the pharmacy and talked to repres entjohan Layle who made specific notes to cancel this [facility] This order / to cancel Brilinata was documented by the underwriting sales representative in the [employer] system. Past Medical History: Past Medical History Diagnosis Date Coronary artery disease Osteoarthritis Rheumatoid arthritis (HCC) Past Surgical History Procedure Laterality Date CARDIAC SURGERY CHOLECYSTECTOMY CORONARY ARTERY BYPASS GRAFT HAND SURGERY Discharged Condition: Stable for discharge as stated above. Significant Diagnostic Studies: X-ray Chest 1 View Result Date: 04/07/2018 This is a non-reportable procedure without a radiologist report and is used for image VIAPa StatSheet only Cl Left Heart Cath With Coronary [...] prepped and draped in the usual sterile [facility] ion. Timeout for patient safety was performed. One percent lidocaine was used for local an esthesia of the right groin. The right femoral artery was accessed using a micropuncture ne edle. There was a lot of scar in the femoral artery. We used a stiff wire and were able to advance the 6-Guyanese sheath. A 5-Guyanese FL4 catheter was advanced; however, unable to [...] ao rtic arch. Then I tried a 5-Guyanese AL1 catheter after again trying the FL5 catheter without success. Multiple angiographic views of the left coronary system were obtained. Then using the 5-Guyanese AL1 catheter, I engaged the vein graft [...] some fresh blood clots extending into the seneca ramus. Subsequently a 5-Guyanese FR4 catheter was advanced over the guidewire into the left ventricle. Left ventric ular pressures and pullback pressures were obtained. The 5-Guyanese FR4 catheter was used for selective engagement of the right coronary artery and angiographic views were obtained. Th e 5-Guyanese FR4 catheter was used for selective engagement of the left subclavian artery. Ex change length wire was advanced into the left subclavian artery and a 5-Guyanese RAM catheter was used for selective engagement of the RAM to LAD graft and multiple angiographic views were obtained. Given the large thrombus burden in all the vein grafts, I felt that PCI at t his point would carry a high risk of occlusion of the seneca vein graft with distal emboliza tion and high risk of no-reflow phenomenon, I decided to stop here and treat him medically w ith Integrilin and heparin. Subsequently the long sheath was exchanged for a short 6-Guyanese 11 cm sheath. Left femoral artery angiogram [...] the range of 99 perc ent. The seneca ramus intermedius is about a 2 to 2.5 mm vessel with fresh thrombus extendi ng just after the anastomotic site. There is TIMI3 flow, however, in this graft. 3. Two vei n grafts, likely to the right coronary artery, were occluded. 1. Severe 3-vessel seneca coronary artery disease with occluded right coronary [...] burden and extension of thrombus into the seneca ramus intermedius. 4. Occluded other vein grafts. [...] TV A Jason: 0.32 m/s TV Dec Greer: 3.84 m/s2 TV Dec Time: 131.55 ms TV E Jason: 0.50 m/s TV E/A Ratio: 1.55 Supervisory Historian: XAVIER yarbrough y: Ry Korimerla Report Date/Time: [...] the family Follow up: Fabricio Bah MD [address] [place] [address] Schedule an appointment as soon as possible for a visit in 1 week For hospitalization re-evaluation ; Andrade Hobbs MD [address] [place] [address] Schedule an appointment as soon as [...] These medications were sent to [facility] [place] - [address] [facility] [place] [place] [address] aluminum-magnesium hydroxide-simethicone 200-200-20 MG/5ML Susp calcium carbonate [...] Service: Cardiology Author Type: Physician Filed: 04/13/18 572 Date of Service: 04/13/181251 Status: Signed Machine Coil Assembler: Ry Scales MD (Physician) [facility]: Cardiology Progress Note Hospital Day: [...] smaller Ramus with extension of thrombus to seneca ramus, PCI carry high risk of failure, [...] Date of Service: 04/13/18 1108 Status: Signed Machine Coil Assembler: Say De Los Santos RN (Registered Nurse) [...] 04/12/182234 Date of Service: 04/12/182232 Status: Signed Machine Coil Assembler: Ry Scales MD (Physician) [facility]: Cardiology Progress Note Hospital Day: [...] sodium chloride (IV) 30 mL/hr at 04/09/18 2981 PRN Medications acetaminophen OR acetaminophen, aluminum-magnesium hydroxide-simethicone, [...] smaller Ramus with extension of thrombus to seneca ramus, PCI carry high risk of failure, [...] up with Dr. Hobbs on discharge in [place] on discharge. Code Status: Full Code Ry Scales MD 04/12/2018 Mindy Bolanos MD - 04/12/2018 9:00 AM PDTFormatting of this note might be different from the darleen floyd Progress Notes by John Herring MD at 04/12/18899 Author: John Herring MD Service: Hospitalist Author Type: Physician Filed: 04/12/181953 Date of Service: 04/12/18899 Status: Signed Machine Coil Assembler: John Herring MD (Physician) Related Notes: Original Note by John Herring MD (Physician) filed at 04/12/18 1234 [facility] Service: Hospitalist Progress Note Pt: Byaron Ulloa AGE/SEX: 82 y.o. male : 1935 ROOM: 4440/[facility] " Chief complaint: chest pain History of present illness: came to ED at [facility] in [place], [place] today mckay use of sudden onset chest [...] patient's cardiac history and requested transfer to [facility] for further workup. The patient has had multiple HI's in the past and had 2 CABG's, as well. He used to follow with Dr Jenkins, who has now retired. He hasn't established care with a new collector of port vicky borrego "everything's been going well." He [...] the RAM graft as well as the seneca artery. 7. Two saphenous vein grafts to [...] the next 24 hrs. Will further d/w collector of port. Stool to be tested for heme occult [...] radiologist report and is used for image Shareholder InSite only Past Medical History Diagnosis Date Coronary artery disease Osteoarthritis Rheumatoid arthritis (HCC) Past Surgical History Procedure Laterality Date CARDIAC SURGERY CHOLECYSTECTOMY CORONARY ARTERY BYPASS GRAFT HAND SURGERY PROBLEM LIST Principal Problem: NSTEMI (non-ST elevated myocardial infarction) ([facility]) Active Problems: Rheumatoid arthritis of multiple sites with negative rheumatoid factor (HCC) History of acute myocardial infarction Hypertension CAD (coronary artery disease) Fatigue GI (gastrointestinal bleed) ASSESSMENT & PLAN 82-year-old male with history of coronary artery disease, previous CABG, rheumatoid arthrit is on chronic anti-inflammatory therapy, hypertension, who presents with the followin. Non-ST elevation HI with diffuse coronary artery disease with previous [...] 04/11/182118 Date of Service: 04/11/182057 Status: Signed Machine Coil Assembler: Ry Scales MD (Physician) [facility]: Cardiology Progress Note Hospital Day: [...] smaller Ramus with extension of thrombus to seneca ramus, PCI carry high risk of failure, [...] 0855 Date of Service: 04/11/18825 Status: Signed Machine Coil Assembler: John Herring MD (Physician) Related Notes: Original Note by John Herring MD (Physician) filed at 04/11/18 0420 [facility]: Hospitalist Progress Note Pt: Bayron Ulloa AGE/SEX: 82 y.o. male : 1935 ROOM: [address] [place] [address] " Chief complaint: chest pain History of present illness: came to ED at [facility] in [place], [place] today mckay use of sudden onset [...] patient's cardiac history and requested transfer to [facility] for further workup. The patient has had multiple HI's in the past and had 2 CABG's, as well. He used to follow with Dr Jenkins, who has now retired. He hasn't established care with a new collector of port vicky borrego "everything's been going well." He [...] the RAM graft as well as the seneca artery. 7. Two saphenous vein grafts to [...] the next 24 hrs. Will further d/w collector of port. Stool to be tested for heme occult [...] who presents with the followin. Non-ST elevation HI with diffuse coronary artery disease with previous [...] 1502 Date of Service: 04/10/181500 Status: Addendum Machine Coil Assembler: Carina Armas RN (Registered Nurse) Related Notes: [...] 04/10/1841 Date of Service: 04/10/18937 Status: Signed Machine Coil Assembler: Cary Gardiner RN (Registered Nurse) Pt reports [...] 04/11/18817 Date of Service: 04/10/18816 Status: Signed Machine Coil Assembler: John Herring MD (Physician) Related Notes: Original Note by John Herring MD (Physician) filed at 04/10/18 1728 [facility]: Hospitalist Progress Note Pt: Bayron Ulloa AGE/SEX: 82 y.o. male : 1935 ROOM: [address] [place] [address] " Chief complaint: chest pain History of present illness: came to ED at [facility] in [place], [place] today mckay use of sudden onset [...] patient's cardiac history and requested transfer to [facility] for further workup. The patient has had multiple HI's in the past and had 2 CABG's, as well. He used to follow with Dr Jenkins, who has now retired. He hasn't established care with a new collector of port vicky borrego "everything's been going well." He [...] the RAM graft as well as the seneca artery. 7. Two saphenous vein grafts to [...] the next 24 hrs. Will further d/w collector of port. Stool to be tested for heme occult [...] who presents with the followin. Non-ST elevation HI, diffuse coronary artery disease with previous CABG [...] in view of patient's recent non-ST elevation HI. 3. Hypertension. Tolerating increased doses of beta [...] 04/09/181929 Date of Service: 04/09/181849 Status: Signed Machine Coil Assembler: Pily Sloan RN (Registered Nurse) Patient denies [...] 04/09/181818 Date of Service: 04/09/181803 Status: Signed Machine Coil Assembler: Chasity Warren MD (Physician) [facility]: Cardiology Progress Note Hospital Day: LOS: 2 days - Patient remains hemodynamically stable and chest pain free - Discussed with patient and family in length coronary anatomy and options for management. - Given large thrombus burden in large, old marvel graft to much smaller Ramus with extension of thrombus to seneca ramus, PCI carry high risk of failure, [...] Management by Carina Armas RN at 04/09/18 751 Author: Carina Armas RN Service: (none) Author Type: Registered Nurse Filed: 04/09/18 1247 Date of Service: 04/09/181246 Status: Signed Machine Coil Assembler: Carina Armas RN (Registered Nurse) Met with [...] Date of Service: 04/09/18 110 Status: Signed Machine Coil Assembler: Ry Scales MD (Physician) [facility]: Cardiology Progress Note Hospital Day: LOS: 2 days Post-Op Day: * No surgery found * SUBJECTIVE Patient Summary: Patient seen by the bedside no new complaints. No overnight events, n o chest pain currently. Underwent cath yesterday showed large fresh thrombus noted in the mi d to distal SVG to Ramus also involving seneca ostial ramus, given extensive clot burden dec ision was made to not proceed with PCI and was started on Integrilin drip hoping soften the clot and re evaluate for PCI in 2-3 days. Denies any chest pain, SOB, palpitations, dizzine ss, syncope, orthopnea, PND. He did not like to laborer wharf experience yesterday felt it was no isy [...] Principal Problem: NSTEMI (non-ST elevated myocardial infarction) ([facility]) Active Problems: Rheumatoid arthritis of multiple sites with negative rheumatoid factor ([facility]) History of acute myocardial infarction Hypertension CAD [...] anesthesia suppo rt Code Status: Full Code yR Scales MD 04/09/2018 Mindy Bolanos MD - 04/09/2018 8:27 AM PDTFormatting of this note might be different from the darleen l. Progress Notes by John Herring MD at 04/09/18826 Author: John Herring MD Service: Hospitalist Author Type: Physician Filed: 04/10/18 0753 Date of Service: 04/09/18826 Status: Signed Machine Coil Assembler: John Herring MD (Physician) Related Notes: Original Note by John Herring MD (Physician) filed at 04/09/18 1810 [facility]: Hospitalist Progress Note Pt: Bayron Ulloa AGE/SEX: 82 y.o. male : 1935 ROOM: [facility]/4440- " Chief complaint: chest pain History of present illness: came to ED at [facility] in [place], [place] today mckay use of sudden onset chest [...] patient's cardiac history and requested transfer to [facility] for further workup. The patient has had multiple HI's in the past and had 2 CABG's, as well. He used to follow with Dr Jenkins, who has now retired. He hasn't established care with a new collector of port vicky borrego "everything's been going well." He [...] the RAM graft as well as the seneca artery. 7. Two saphenous vein grafts to [...] report and is used for image stora StatSheet only Past Medical History Diagnosis Date Coronary [...] therapy, hypertension, who presents with the followin. Euv-YW-fwmawpque HI. Diffuse coronary artery disease with previous CABG [...] PM PDT Progress Notes by Milagros Campoverde [facility] at 04/08/18 1456 Author: Milagros Campoverde RPH Service: Pharmacy Author Type: Pharmacist Filed: 04/08/18 1456 Date of Service: 04/08/181455 Status: Signed Machine Coil Assembler: Milagros Campoverde RPH (Pharmacist) Clinical Pharmacy Note: [...] Note by Kandi Godinez RN at 04/08/18 776 Author: Kandi Godinez RN Service: (none) Author Type: Registered Nurse Filed: 04/08/181437 Date of Service: 04/08/181436 Status: Signed Machine Coil Assembler: Kandi Godinez RN (Registered Nurse) Pt transferred from laborer wharf. Integrelin gtt running at 2 mcg/kg/hr per order. Heparin gtt to be restarted at 1500 per report. Femstop in place on R groin mynx access site, to remain on until 1500 per report. RLE pulses palpable. Pt educated on safety precautions. Kandi Godinez RN onver bridget Transaction, Provider Unknown - 04/08/2018 12:58 PM PDT Nurse Progress Note by Juan Blood RN at 04/08/18 7639 Author: Juan Blood RN Service: Cardiac, Thoracic, and Vascular Surgery Author T ype: Registered Nurse Filed: 04/08/18 1258 Date of Service: 04/08/18 1258 Status: Signed Machine Coil Assembler: Juan Blood RN (Registered Nurse) Dr. Warren gave VO for heparin gtt to restart in 2 hours post end of case at 1235. onver bridget Transaction, Provider Unknown - 04/08/2018 10:55 AM PDT Case Management by Kandi Gonzalez RN at 04/08/18 1050 Author: Kandi Gonzalez RN Service: (none) Author Type: Registered Nurse Filed: 04/08/18 1108 Date of Service: 04/08/181054 Status: Signed Machine Coil Assembler: Kandi Gonzalez RN (Registered Nurse) 04/08/18 1051 Discharge Planning Evaluation Living Arrangements Spouse/significant other Support Systems Spouse/significant other Type of Residence Private residence Independent with ADL's Yes Independent with Mobility Yes Home Care Services No Caregiver after Discharge No Mental Status Oriented Resources Financial concerns No Transportation issues No Patient/Family concerns No Prescription Plan Yes Name of Pharmacy [facility] Previous home health equipment Yes CM attempted to meet with pt but he is in laborer wharf-CM called Aline and obtained asses sment information. CM discussed discharge planning, Pt is a 82 y.o., male admitted with NSTE HI. Pt and live in [place], [place]. Pt is independent at baseline with walker/cane. W juan states they have no home care services currently. Pt was on Plavix prior to admit. CM wi ll need to follow and assess for d/c needs after laborer wharf. Patient's PCP is: Fabricio Bah Patient's insurance: [...] 04/08/181025 Date of Service: 04/08/181024 Status: Signed Machine Coil Assembler: Elisabeth Rueda RN (Registered Nurse) Patient transferred to laborer wharf via stretcher. Tele notified. Groin sites prepped, no addit ional IV in place. equipment operator/laborer notified. onver bridget Transaction, Provider Unknown - 04/08/2018 9:00 AM PDT Nurse Progress Note by Elisabeth Rueda RN at 04/08/18899 Author: Elisabeth Rueda RN Service: (none) Author Type: Registered Nurse Filed: 04/08/18900 Date of Service: 04/08/18899 Status: Signed Machine Coil Assembler: Elisabeth Rueda RN (Registered Nurse) Dr. Scales [...] 04/08/18832 Date of Service: 04/08/18829 Status: Signed Machine Coil Assembler: Elisabeth Rueda RN (Registered Nurse) Called and left message with Dr. Scales, no answer. Per Dr. Herring, Dr. Scales should be seeing the patient today for a consult and possible heart cath. Went to [facility] and called Dr. Charles, who stated [...] 04/08/182001 Date of Service: 04/08/18810 Status: Signed Machine Coil Assembler: John Herring MD (Physician) Related Notes: Original Note by John Herring MD (Physician) filed at 04/08/18 1704 [facility] Service: Hospitalist Progress Note Pt: Bayron Ulloa AGE/SEX: 82 y.o. male : 1935 ROOM: [address] [place] [address] " Chief complaint: chest pain History of present illness: came to ED at [facility] in [place], [place] today mckay use of sudden onset chest [...] patient's cardiac history and requested transfer to [facility] for further workup. The patient has had multiple HI's in the past and had 2 CABG's, as well. He used to follow with Dr Jenkins, who has now retired. He hasn't established care with a new collector of port vicky borrego "everything's been going well." He [...] the RAM graft as well as the seneca artery. 7. Two saphenous vein grafts to [...] who presents with the followin. Non-ST elevation HI. The patient had a significant rise in [...] 04/08/18754 Date of Service: 04/08/18751 Status: Addendum Machine Coil Assembler: Elisabeth Rueda RN (Registered Nurse) Related Notes: Original Note by Elisabeth Rueda RN (Registered Nurse) filed at 04/08/18754 Tele called this RN to notify that patient had 15 beats of Vtach and 5 beats of AIVR. Check ed on patient, who denies any chest pain, SOB, palpitations or lightheadedness. ECHO in the room, biofuels processing technician also noticed abnormal rhythm and asked pt if he was experiencing any symptom s, to which pt denied. Dr. Herring notified. onver bridget Transaction, Provider Unknown - 04/08/2018 3:41 AM PDT Pharmacy Note by Rasheeda Owens RPH at 04/08/18340 Author: Rasheeda Owens RPH Service: Pharmacy Author Type: Pharmacist Filed: 04/08/18340 Date of Service: 04/08/18340 Status: Signed Machine Coil Assembler: Rasheeda Owens RPH (Pharmacist) Clinical Pharmacy Note: Renal Monitoring Height: 177.8 cm Weight: 81.2 kg Serum Creatinine: 1.14 mg/dL (from [facility]) Estimated creatinine clearance - Cockcroft-Gault CrCl: 50 [...] 0330 Date of Service: 04/08/18328 Status: Signed Machine Coil Assembler: Jessi Benoit RN (Registered Nurse) I notified Dr. Lake of another elevated troponin level, no new orders at this time. onver bridget Transaction, Provider Unknown - 04/08/2018 2:41 AM PDT Nurse Progress Note by Jessi Benoit RN at 04/08/18240 Author: Jessi Benoit RN Service: (none) Author Type: Registered Nurse Filed: 04/08/183 Date of Service: 04/08/18240 Status: Signed Machine Coil Assembler: Jessi Benoit RN (Registered Nurse) PTT was [...] 04/07/182331 Date of Service: 04/07/182330 Status: Signed Machine Coil Assembler: Jessi Benoit RN (Registered Nurse) I talked [...] 04/07/182245 Date of Service: 04/07/182245 Status: Signed Machine Coil Assembler: Jessi Benoit RN (Registered Nurse) Dr. Lake is at the bedside onver bridget Transaction, Provider Unknown - 04/07/2018 9:54 PM PDT Nurse Progress Note by Jessi Benoit RN at 04/07/182153 Author: Jessi Benoit RN Service: (none) Author Type: Registered Nurse Filed: 04/07/182154 Date of Service: 04/07/182153 Status: Signed Machine Coil Assembler: Jessi Benoit RN (Registered Nurse) I talked to Dr. Lake and let him know that the pt is here, he is aware. onver bridget Transaction, Provider Unknown - 04/07/2018 9:37 PM PDT Nurse Progress Note by Jessi Benoit RN at 04/07/182136 Author: Jessi Benoit RN Service: (none) Author Type: Registered Nurse Filed: 04/07/182137 Date of Service: 04/07/182136 Status: Signed Machine Coil Assembler: Jessi Benoit RN (Registered Nurse) Pt ambulated to the bathroom and tolerated well docume nted in this encounter Plan of Treatment +--------+---------+ + + + | Date | Type | Specialty | Care Team | Description | +--------+---------+ + + + | 03/20/ | Office | Rheumatology | Roxi, | | | 2019 | Visit | | [address] | | | | | | [address] | | | | | | [place] [address] | | | | | | [phone] | | | | | | | | +--------+---------+ + + + | 04/05/ | Office | Cardiology | Andrade Hobbs, | | | 2019 | Visit | | [address] | | | | | | [place] | | | | | | [address] | | | | | | | [...] EXTERNAL | | | | performed at [facility]888 | mmol/L | LAB | | | | Mateo Espinosa;[place], [place] | | | | | | [address] | | | | + + + [...] | | | Basophils | performed at [facility], [address] | K/uL | LAB | | | | [address], | | | | | | [place] [address] | | | | + + + [...] EXTERNAL | | | | performed at [facility], [address] | | LAB | | | | Gabby Espinosa, | | | | | | [place] [address] | | | | + + + [...] EXTERNAL | | | | performed at [facility], [address] | | LAB | | | | Gabby Espinosa, | | | | | | [place] [address] | | | | + + + [...] | | | | | performed at [facility], [address] | | | | | | [facility], | | | | | | [place] [address] | | | | + + + [...] | | | Basophils | performed at [facility], [address] | K/uL | LAB | | | | Gabby Espinosa, | | | | | | [place] [address] | | | | + + + [...] EXTERNAL | | | | performed at [facility], [address] | | LAB | | | | Gabby Espinosa, | | | | | | [place] [address] | | | | + + + [...] EXTERNAL | | | | performed at [facility], [address] | | LAB | | | | Gabby Espinosa, | | | | | | [place] [address] | | | | + + + [...] | | | | | performed at [facility], [address] | | | | | | [facility], | | | | | | [place] [address] | | | | + + + [...] | | | | | [place] [address] | | | | + + + [...] | | | Basophils | performed at [facility], [address] | K/uL | LAB | | | | [facility], | | | | | | [place] [address] | | | | + + + [...] EXTERNAL | | | | performed at [facility], [address] | | LAB | | | | Gabby Espinosa, | | | | | | [place] [address] | | | | + + + [...] EXTERNAL | | | | performed at [facility], [address] | | LAB | | | | Gabby Espinosa, | | | | | | [place] [address] | | | | + + + [...] | | | | | performed at [facility], [address] | | | | | | [facility], | | | | | | [place] [address] | | | | + + + [...] | | | POC | performed at [facility] | | LAB | | | | Gal[address];[place], [place] | | | | | | [address] | | | | + + + [...] | | | POC | performed at [facility];8 | | LAB | | | | [facility];[place], [place] | | | | | | [address] | | | | + + + [...] | | | Patient | performed at [facility];888 | | LAB | | | | Mateo Espinosa;[place], [place] | | | | | | [address] | | | | + + + [...] EXTERNAL LAB | | Testing performed at [facility] [facility];[place] [address] | | + + + + +---------+ [...] EXTERNAL | | | | performed at [facility], [address] | | LAB | | | | Gabby Espinosa, | | | | | | [place] [address] | | | | + + + [...] | | | Patient | performed at [facility];888 | | LAB | | | | Mateo Espinosa;[place] | | | | | | [address] | | | | + + + [...] EXTERNAL | | | | performed at [facility], [address] | | LAB | | | | Gabby Espinosa, | | | | | | [place] [address] | | | | + + + [...] EXTERNAL | | | | performed at [facility] | | LAB | | | | Mateo Espinosa;[place] | | | | | | [address] | | | | + + + [...] | | | | | [place] [address] | | | | + + + [...] | | | | | performed at [facility], [address] | | | | | | [facility], | | | | | | [place] [address] | | | | + + + [...] | | | Patient | performed at [facility];888 | | LAB | | | | [address];[place] | | | | | | [address] | | | | + + + [...] | | | Patient | performed at [facility];888 | | LAB | | | | Mateo Espinosa;[place] | | | | | | [address] | | | | + + + [...] EXTERNAL | | | | performed at [facility];888 | mmol/L | LAB | | | | Mateo Espinosa;[place], [place] | | | | | | [address] | | | | + + + [...] EXTERNAL | | | | performed at [facility];888 | mmol/L | LAB | | | | Mateo Espinosa;[place] | | | | | | [address] | | | | + + + [...] | | | Patient | performed at [facility];888 | | LAB | | | | [facility] [facility];[place], [place] | | | | | | [address] | | | | + + + [...] | | | Patient | performed at [facility];888 | | LAB | | | | Mateo Espinosa;[place] | | | | | | [address] | | | | + + + [...] | | | Basophils | performed at [facility], [address] | K/uL | LAB | | | | Gabby Espinosa, | | | | | | [place] [address] | | | | + + + [...] EXTERNAL | | | | performed at [facility], [address] | | LAB | | | | Gabby Espinosa, | | | | | | [place] [address] | | | | + + + [...] EXTERNAL | | | | performed at [facility];888 | | LAB | | | | Mateo Espinosa;[place] | | | | | | [address] | | | | + + + [...] EXTERNAL | | | | performed at [facility], [address] | | LAB | | | | Gabby Espinosa, | | | | | | [place] [address] | | | | + + + [...] | | | | | performed at [facility], [address] | | | | | | [facility], | | | | | | [place] [address] | | | | + + + [...] | | | Patient | performed at [facility];888 | | LAB | | | | Mateo Espinosa;[place] | | | | | | [address] | | | | + + + [...] + + + | 1. 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 4. Occluded | | | [...] wire and were able to advance the 6-Guyanese sheath. A 5-Guyanese | | | FL4 catheter was advanced; [...] | aortic arch. Then I tried a 5-Guyanese AL1 catheter after again | | | trying the FL5 catheter without success. Multiple angiographic views | | | of the left coronary system were obtained. Then using the 5-Guyanese | | | AL1 catheter, I engaged [...] | fresh blood clots extending into the seneca ramus. Subsequently a | | | 5-Guyanese FR4 catheter was advanced over the guidewire into the left | | | ventricle. Left ventricular pressures and pullback pressures were | | | obtained. The 5-Guyanese FR4 catheter was used for selective | | | engagement of the right coronary artery and angiographic views were | | | obtained. The 5-Guyanese FR4 catheter was used for selective | | | engagement of the left subclavian artery. Exchange length wire was | | | advanced into the left subclavian artery and a 5-Guyanese RAM catheter | | | was used for selective engagement of the RAM to LAD graft and | | | multiple angiographic views were obtained. Given the large thrombus | | | burden in all the vein grafts, I felt that PCI at this point would | | | carry a high risk of occlusion of the seneca vein graft with distal | | | embolization and high risk of no-reflow phenomenon, I decided to stop | | | here and treat him medically with Integrilin and heparin. | | | Subsequently the long sheath was exchanged for a short 6-Guyanese 11 cm | | | sheath. Left [...] of 99 percent. The | | | seneca ramus intermedius is about a 2 to [...] wire and were able to advance the 6-Guyanese sheath. A 5-Guyanese | | FL4 catheter was advanced; however, [...] arch. Then I tried a | | 5-Guyanese AL1 catheter after again trying the FL5 catheter without success. | | Multiple angiographic views of the left coronary system were obtained. | | Then using the 5-Guyanese AL1 catheter, I engaged the vein graft [...] blood | | clots extending into the seneca ramus. | | | | Subsequently a 5-Guyanese FR4 catheter was advanced over the guidewire into | | the left ventricle. Left ventricular pressures and pullback pressures were | | obtained. The 5-Guyanese FR4 catheter was used for selective engagement of | | the right coronary artery and angiographic views were obtained. The | | 5-Guyanese FR4 catheter was used for selective engagement of the left | | subclavian artery. Exchange length wire was advanced into the left | | subclavian artery and a 5-Guyanese RAM catheter was used for selective | | engagement of the RAM to LAD graft and multiple angiographic views were | | obtained. Given the large thrombus burden in all the vein grafts, I felt | | that PCI at this point would carry a high risk of occlusion of the seneca | | vein graft with distal embolization and high risk of no-reflow phenomenon, | | I decided to stop here and treat him medically with Integrilin and heparin. | | Subsequently the long sheath was exchanged for a short 6-Guyanese 11 cm | | sheath. Left femoral [...] range of 99 | | percent. The seneca ramus intermedius is about a 2 to 2.5 mm vessel | | with fresh thrombus extending just after the anastomotic site. There is | | TIMI3 flow, however, in this graft. | | 3. Two vein grafts, likely to the right coronary artery, were occluded. | | | | IMPRESSION: | | 1. 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 | | 4. Occluded other [...] | | | Clotting | performed at [facility];888 | seconds | LAB | | | time, POC | [address];[place] | | | | | | [address] | | | | + + + [...] | | | Clotting | performed at [facility];[address] | seconds | LAB | | | time, POC | [address];[place], [place] | | | | | | [address] | | | | + + + [...] | | | Clotting | performed at [facility];888 | seconds | LAB | | | time, POC | [address];[place] | | | | | | [address] | | | | + + + [...] 0.32 m/s TV Dec | | | Greer: 3.84 m/s2 TV Dec Time: 131.55 ms TV E Jason: 0.50 m/s | | | TV E/A Ratio: 1.55 Supervisory Historian: XAVIER Authenticated by: Ry | | | Lodya Report Date/Time: 04-08-2018 10:14:18 | | + [...] (A-L): | | 15.96 ml/m2LAAs A2C: 12.09 [id number] A-L A2C: 28.17 mlLALs A2C: 4.41 cmLAAs A4C: | | 13.64 [id number] A-L A4C: 34.73 mlLALs A4C: 4.54 cmAo [...] A Jason: 0.32 m/sTV Dec | | Greer: 3.84 m/s2TV Dec Time: 131.55 msTV E Jason: 0.50 m/sTV E/A Ratio: 1.55 | | Supervisory Historian: THEODORAuthenticated by: Ry Vazquez Date/Time: 04-08-2018 10:14:18 [...] A Jason: 0.32 m/s | |TV Dec Greer: 3.84 m/s2 | |TV Dec Time: 131.55 ms | |TV E Jason: 0.50 m/s | |TV E/A Ratio: 1.55 | | | |Supervisory Historian: KVW | |Authenticated by: Ry Scales | [...] | | | Patient | performed at [facility];[address] | | LAB | | | | [address];[place], [place] | | | | | | [address] | | | | + + + [...] + + | [facility] | EXTERNAL LAB | + + [...] | | | | | | ACUTE HI CALLED NURSING | | | | | | IDALMIS CHEATHAM AT 0317 | | | | | | BY PicanovaREAD BACK RESULTS | | | | | | VERIFIEDTesting | | | | | | performed at [facility];[address] | | | | | | [address];[place], [place] | | | | | | [address] | | | | + + + [...] | | | Basophils | performed at [facility], [address] | K/uL | LAB | | | | Gabby Espinosa, | | | | | | [place] [address] | | | | + + + [...] EXTERNAL | | | | performed at [facility], [address] | uIU/mL | LAB | | | | Gabby Espinosa, | | | | | | [place] [address] | | | | + + + [...] EXTERNAL | | | | performed at [facility] | | LAB | | | | Mateo Espinosa;[place] | | | | | | [address] | | | | + + + [...] | | | | | performed at [facility], [address] | | | | | | [facility], | | | | | | [place] [address] | | | | + + + [...] | | | | AT 0150 BY Remedy SystemsREAD BACK | | | | | | RESULTS VERIFIEDTesting | | | | | | performed at [facility];[address] | | | | | | [address]os;[place], [place] | | | | | | [address] | | | | + + + [...] | | | | | performed at [facility];[address] | | | | | | Mateo Matos;[place], [place] | | | | | | [address] | | | | + + + [...] | | | | | | ACUTE HI CALLED | | | | | | RESULTSREAD BACK RESULTS | | | | | | ARSH Shin/NIYA AT | | | | | | 2325 BY Jose Miguel | | | | | | performed at [facility];888 | | | | | | Mate[address]spin[address];[place], [place] | | | | | | [address] | | | | + + + [...]
--- OUTSIDE RECORDS SUMMARY | ~2020-02-05 | XMS | Encounter Summary ---
Demographics + + + | Address | [address] | | | [place] [address] | + + + | Home Phone [...] [place] | | | | | [address] | | + + + + + | Arin Ulloa | ECON | Unknown | | + + + + + Care Team Providers + +------+ + | Care Utility Maintenance Worker Name | Role | Phone | + +------+ + PCP | Unavailable | + +------+ + Encounter Details +--------+ + + + + | Date | Type | Department | Care Team | Description | +--------+ + + + + | 05/10/ | Hospital | [facility] [facility] | Derrek Darnell | | | 2000 | Encounter | DEBRA GENERIC | MD Zack Orleans | | | | | CONVERSION | [facility] | | | | | DEPARTMENT [address] | [address] | | | | | [facility] | Road [place], [place] | | | | | [place], [place] | [id number] | | | | | [address] | | | | | | [phone] | | | +--------+ + + + [...] | | | | | [place] [address] | | | | | | [phone] | | | | | | | | +--------+---------+ + + + | 04/05/ | Office | Cardiology | Andrade Hobbs, | | | 2019 | Visit | | MD Curtis ESPARZA | | | | | | [place] | | | | | | [phone] | | | | | | | | +--------+---------+ + + + documented as of this encounter Visit Diagnoses Not on filedocumented in this encounter"
--- OUTSIDE RECORDS SUMMARY | ~2020-02-05 | XMS | Encounter Summary ---
Demographics + + + | Address | [address] | | | [place] [address] | + + + | Home Phone [...] [place] | | | | | [address] | | + + + + + | Arin Ulloa | ECON | Unknown | | + + + + + Care Team Providers + +------+ + | Care Cloth Presser Name | Role | Phone | + +------+ + PCP | Unavailable | + +------+ + Encounter Details +--------+ + + + + | Date | Type | Department | Care Team | Description | +--------+ + + + + | 04/07/ | Hospital | [facility] | Conversion | Diagnosis unknown | | 2018 | Encounter | CONVERSION [address] | Transaction, | | | | | [address] | Provider Unknown | | | | | [place], [place] | [phone] | | | | | [address] | | | | | | [phone] | | | +--------+ + + + [...] | | | | | [place] [address] | | | | | | [phone] | | | | | | | | +--------+---------+ + + + | 04/05/ | Office | Cardiology | Andrade Hobbs, | | | 2019 | Visit | | MD Curtis ESPARZA | | | | | | [place] | | | | | | [address] | | | | | | | [...]
--- OUTSIDE RECORDS SUMMARY | ~2020-02-05 | XMS | Encounter Summary ---
Demographics + + + | Address | [address] | | | [place] [address] | + + + | Home Phone | | + + + | Preferred Language | Unknown | + + + | Marital Status | | + + + | Catholic Affiliation | 1077 | + + + [...] [place] | | | | | [address] | | + + + + + | Arni Ulloa | ECON | Unknown | | + + + + + Care Team Providers + +------+ + | Care Weather Strip Installer Name | Role | Phone | + +------+ + PCP | Unavailable | + +------+ + Encounter Details +--------+ + + + + | Date | Type | Department | Care Team | Description | +--------+ + + + + | 12/09/ | Hospital | [facility] | Derrek Darnell | | | 2000 | Encounter | DEBRA GENERIC | MD Zack Balmorhea | | | | | CONVERSION | [facility] | | | | | DEPARTMENT [address] | [address] | | | | | [facility] | Road [place], [place] | | | | | [place], [place] | [id number] | | | | | [address] | | | | | | [phone] | | | +--------+ + + + [...] | | | | | [place] [address] | | | | | | [phone] | | | | | | | | +--------+---------+ + + + | 04/05/ | Office | Cardiology | Andrade Hobbs, | | | 2019 | Visit | | MD Curtis ESPARZA | | | | | | [place] | | | | | | [phone] | | | | | | | | +--------+---------+ + + + documented as of this encounter Visit Diagnoses Not on filedocumented in this encounter"
--- OUTSIDE RECORDS SUMMARY | ~2020-02-05 | XMS | Encounter Summary ---
Demographics + + + | Address | [address] | | | [place] [address] | + + + | Home Phone | | + + + | Preferred Language | Unknown | + + + | Marital Status | | + + + | Buddhist Affiliation | 1077 | + + + [...] [place] | | | | | [address] | | + + + + + | Arin Ulloa | ECON | Unknown | | + + + + + Care Team Providers + +------+ + | Care Battery Repairer Name | Role | Phone | + +------+ + PCP | Unavailable | + +------+ + Encounter Details +--------+ + + + + | Date | Type | Department | Care Team | Description | +--------+ + + + + | 09/26/ | Hospital | [facility] | Derrek Darnell | | | 1997 | Encounter | DEBRA LABORATORY | Zack Verona | | | | | [address] | [facility] | | | | | [place], [place] | [address] | | | | | [address] | Road [place], [place] | | | | | [phone] | [address] | | | | | [...] | | | | | [place] [address] | | | | | | [phone] | | | | | | | | +--------+---------+ + + + | 04/05/ | Office | Cardiology | Andrade Hobbs, | | | 2019 | Visit | | MD Curtis ESPARZA | | | | | | [place] | | | | | | [phone] | | | | | | | | +--------+---------+ + + + documented as of this encounter Visit Diagnoses Not on filedocumented in this encounter"
--- OUTSIDE RECORDS SUMMARY | ~2020-02-05 | XMS | Encounter Summary ---
Demographics + + + | Address | [address] | | | [place] [address] | + + + | Home Phone | | + + + | Preferred Language | Unknown | + + + | Marital Status | | + + + | Lutheran Affiliation | Unknown | + + + | Race | White | + + + | Ethnic Group | Not or | + + + Author + + + | Author | [facility] | + + + | Organization | [facility] | + + + | Address | Unknown | + + + | Phone | Unavailable | + + + Care Team Providers + +------+ + | Care Team Assistant Name | Role | Phone | + [...] [facility] | | | | | | [facility] | | | | | | and Healing, | | | | | | Building [address], [address]th | | | | | | Floor [place], [place] | | | | | | [address] | | | | | | [phone] | | | +--------+ + + + [...] papular | | | | | | [id number] skin, | | | | | | [id number]. Thesurgical | | | | | | [...] skin, | | | | | | [id number]. The surgical | | | | | [...] | | | | | | papular [id number] | | | | | | skin, [id number]. The | | | | | | [...] [facility] | [address] | [place] [address] | | | DERMATOPATHOLOGY | [address] [...]
--- OUTSIDE RECORDS SUMMARY | ~2020-02-05 | XMS | Encounter Summary ---
Demographics + + + | Address | [address] | | | [place] [address] | + + + | Home Phone [...] [place] | | | | | [address] | | + + + + + | Arin Ulloa | ECON | Unknown | | + + + + + Care Team Providers + +------+ + | Care Senior Sales Compensation Analyst Name | Role | Phone | + +------+ + PCP | Unavailable | + +------+ + Encounter Details +--------+ + + + + | Date | Type | Department | Care Team | Description | +--------+ + + + + | 03/01/ | Hospital | [facility] | Derrek Darnell | | | 1999 - | Encounter | [place] [address] | MD Zack [place] | | | | | [facility] | [facility] | | | 03/02/ | | [place], [place] | [address] | | | 1999 | | [address] | Road [place], [place] | | | | | [phone] | [address] | | | | | | | | | | | | Tom Douglas MD | | | | | | [address] [facility] | | | | | | [place] [address] | | | | | | [phone] | | | | | | | [...] | | | | | [place] [address] | | | | | | [phone] | | | | | | | | +--------+---------+ + + + | 04/05/ | Office | Cardiology | Andrade Hobbs, | | | 2019 | Visit | | MD Curtis ESPARZA | | | | | | [place] | | | | | | [address] | | | | | | | | +--------+---------+ + + + documented as of this encounter Visit Diagnoses Not on filedocumented in this encounter"
--- OUTSIDE RECORDS SUMMARY | ~2020-02-05 | XMS | Encounter Summary ---
Demographics + + + | Address | [address] | | | [place] [address] | + + + | Home Phone | | + + + | Preferred Language | Unknown | + + + | Marital Status | | + + + | Hoahaoism Affiliation | 1077 | + + + | Race | Unknown | + + + | Ethnic Group | Unknown | + + + Author + + + | Author | [facility] | | | and [place] | + + + | Organization | [facility] | | [...] [place] | | | | | [address] | | + + + + + | Arin Ulloa | ECON | Unknown | | + + + + + Care Team Providers + +------+ + | Care Electrical Engineering Director Name | Role | Phone | + +------+ + PCP | Unavailable | + +------+ + Encounter Details +--------+ + + + + | Date | Type | Department | Care Team | Description | +--------+ + + + + | 04/16/ | Hospital | [facility] | Sathish Appiah S | | | 2001 | Encounter | [facility] | MD | | | | | ULTRASOUND [address] | | | | | | [address] [place] | | | | | | [address] | | | | | | [phone] | | | +--------+ + + + [...] | | | | | [place] [address] | | | | | | [phone] | | | | | | | | +--------+---------+ + + + | 04/05/ | Office | Cardiology | Andrade Hobbs, | | | 2019 | Visit | | MD Curtis ESPARZA | | | | | | [place] | | | | | | [phone] | | | | | | | | +--------+---------+ + + + documented as of this encounter Visit Diagnoses Not on filedocumented in this encounter"
--- OUTSIDE RECORDS SUMMARY | ~2020-02-05 | XMS | Encounter Summary ---
Demographics + + + | Address | [address] | | | [place] [address] | + + + | Home Phone [...] [place] | | | | | [address] | | + + + + + | Arin Ulloa | ECON | Unknown | | + + + + + Care Team Providers + +------+ + | Care Transit Specialist Name | Role | Phone | + +------+ + PCP | Unavailable | + +------+ + Encounter Details +--------+ + + + + | Date | Type | Department | Care Team | Description | +--------+ + + + + | 08/09/ | Hospital | [facility] | Derrek Darnell | | | 1998 | Encounter | DEBRA GENERIC | MD Zack Quinnesec | | | | | CONVERSION | [facility] | | | | | DEPARTMENT [address] | [address] | | | | | [facility] | Road [place], [place] | | | | | [place], [place] | [id number] | | | | | [address] | | | | | | [phone] | | | +--------+ + + + [...] | | | | | [place] [address] | | | | | | [phone] | | | | | | | | +--------+---------+ + + + | 04/05/ | Office | Cardiology | Andrade Hobbs, | | | 2019 | Visit | | MD Curtis ESPARZA | | | | | | [place] | | | | | | [phone] | | | | | | | | +--------+---------+ + + + documented as of this encounter Visit Diagnoses Not on filedocumented in this encounter"
--- OUTSIDE RECORDS SUMMARY | ~2020-02-05 | XMS | Encounter Summary ---
Demographics + + + | Address | [address] | | | [place] [address] | + + + | Home Phone [...] [place] | | | | | [address] | | + + + + + | Arin Ulloa | ECON | Unknown | | + + + + + Care Team Providers + +------+ + | Care Support Teacher Name | Role | Phone | [...] + + | 07/26/ | Refill | [facility] | Addi Nix, | Medication Refill | | 2018 | | [facility] [place] | Masking Machine Feeder | (Metoprolol) | | | | [address] | | | | | | [place], [place] | | | | | | [address] | | | | | | [phone] | | | +--------+--------+ + + + [...] 2019 | Visit | | [address] | | | | | | [address] | | | | | | [place] [address] | | | | | | [phone] | | | | | | | | +--------+---------+ + + + | 04/05/ | Office | Cardiology | Andrade Hobbs, | | | 2019 | Visit | | MD Curtis ESPARZA | | | | | | [place] | | | | | | [address] | | | | | | | | +--------+---------+ + + + documented as of this encounter Visit Diagnoses Not on filedocumented in this encounter"
--- OUTSIDE RECORDS SUMMARY | ~2020-02-05 | XMS | Encounter Summary ---
Demographics + + + | Address | [address] | | | [place] [address] | + + + | Home Phone | | + + + | Preferred Language | Unknown | + + + | Marital Status | | + + + | Yazdanism Affiliation | 1077 | + + + | Race | Unknown | + + + | Ethnic Group | Unknown | + + + Author + + + | Author | [facility] | | | and [place] | + + + | Organization | [facility] | | | [...] [place] | | | | | [address] | | + + + + + | Arin Ulloa | ECON | Unknown | | + + + + + Care Team Providers + +------+ + | Care Educational Psychology Professor Name | Role | Phone | [...] + + | 08/02/ | Office | [facility] | Roxi, | Rheumatoid arthritis | | 2019 | Visit | RHEUMATOLOGY [address] | [address] | of multiple sites | | | | [address] | [address] | with negative | | | | [facility] | [place] [address] | rheumatoid factor | | | | [address] | [phone] | ([facility]) (Primary Dx); | | | | [phone] | | High risk medication | | | | | | use; parts counterman | | | | | | systemic [...] encounter Patient Instructions Patient Instructions Maki Mccloud, Ski Patrol - 08/02/2019 2:00 PM PSTWe hope that you have experienced exceptional care today and that you found our service to be courte ous and helpful. If you have any questions you can send us a message/request using Nestio or call our o ffice at [phone]. To reach Maki FABIAN type extension [phone]. If you are unable to reach a [...] personally using the homunculus tool during Tiff EL patient exam. Labs reviewed in [facility] --12/28/2018 Reviewed chart notes, labs and imaging form other provider(s) since the last visit. Assessment and Plan: Visit Diagnoses and Associated Orders: Rheumatoid arthritis of multiple sites with negative rheumatoid factor (HCC) (Primary) Assessment & Plan: No clinical evidence of active disease on today's exam. Responding well to current treatment plan. No change in treatment plan. Patient understands that treatment is machine long goods helper and if patient fails to continue regimen [...] need for routine blood work monitoring. senior care systemic steroid user Assessment & Plan: Steroids: [...] symptoms. This document has been prepared with Citizengine voice recognition system. The possibility of "s ound alike" technical support assistant errors, and additions, or deletions may occur. [...] | | | | | [place] [address] | | | | | | [phone] | | | | | | | | +--------+---------+ + + + | 04/05/ | Office | Cardiology | Lobo Hobbsjosé miguel, | | | 2019 | Visit | | MD Curtis ESPARZA | | | | | | [place], [place] | | | | | | [address] | | | | | | | | +--------+---------+ + + + documented as of this encounter Visit Diagnoses + + | Diagnosis | + + | Rheumatoid arthritis of multiple sites with negative rheumatoid factor (HCC) - Primary | + + | High risk medication use Encounter for long-term (current) use of other medications | + + | senior care systemic steroid user | + + documented in this encounter
--- OUTSIDE RECORDS SUMMARY | ~2020-02-05 | XMS | Encounter Summary ---
Demographics + + + | Address | [address] | | | [place] [address] | + + + | Home Phone | | + + + | Preferred Language | Unknown | + + + | Marital Status | | + + + | Anglican Affiliation | 1077 | + + + [...] [place] | | | | | [address] | | + + + + + | Arin Ulloa | ECON | Unknown | | + + + + + Care Team Providers + +------+ + | Care Co Founder And Director Name | Role | Phone | [...] + + | 06/26/ | Refill | [facility] | Philly Hanna | Medication Refill | | 2019 | | RHEUM[address]OLOGY [address] | MD Richie [address] | | | | | [address] | [address] | | | | | [place], [place] | [place] [address] | | | | | [address] | [phone] | | | | | [phone] | | | +--------+--------+ + + + [...] 2019 | Visit | | [address] | | | | | | [address] | | | | | | [place] [address] | | | | | | [phone] | | | | | | | | +--------+---------+ + + + | 04/05/ | Office | Cardiology | Andrade Hobbs, | | | 2019 | Visit | | MD Curtis ESPARZA | | | | | | [place] | | | | | | [address] | | | | | | | | +--------+---------+ + + + documented as of this encounter Visit Diagnoses Not on filedocumented in this encounter"
--- OUTSIDE RECORDS SUMMARY | ~2020-02-05 | XMS | Encounter Summary ---
Demographics + + + | Address | [address] | | | [place] [address] | + + + | Home Phone [...] [place] | | | | | [address] | | + + + + + | Arin Ulloa | ECON | Unknown | | + + + + + Care Team Providers + +------+ + | Care Press Writer Name | Role | Phone | + +------+ + PCP | Unavailable | + +------+ + Encounter Details +--------+ + + + + | Date | Type | Department | Care Team | Description | +--------+ + + + + | 10/15/ | Orders Only | [facility] | RyneghazalAndrade, | | | 2019 | | CARDIOLOGY BANGS | [address] | | | | [address] | [place], [place] | | | | | [place], [place] | [address] | | | | | [address] | | | | | | [phone] | | | +--------+ + + + [...] | | | | | [place] [address] | | | | | | [phone] | | | | | | | | +--------+---------+ + + + | 04/05/ | Office | Cardiology | Andrade Hobbs, | | | 2019 | Visit | | MD Curtis ESPARZA | | | | | | [place] [facility] [place] | | | | | | [address] | | | | | | | [...]
--- OUTSIDE RECORDS SUMMARY | ~2020-02-05 | XMS | Encounter Summary ---
Demographics + + + | Address | [address] | | | [place] [address] | + + + | Home Phone | | + + + | Preferred Language | Unknown | + + + | Marital Status | | + + + | Taoist Affiliation | 1077 | + + + | Race | Unknown | + + + | Ethnic Group | Unknown | + + + Author + + + | Author | [facility] | | | and [place] | + + + | Organization | [facility] | | [...] [place] | | | | | [address] | | + + + + + | Arin Ulloa | ECON | Unknown | | + + + + + Care Team Providers + +------+ + | Care Manager Packaging Name | Role | Phone | + +------+ + | Fabricio Bah | PCP | | | MD | | | + +------+ + Encounter Details +--------+ + + + + | Date | Type | Department | Care Team | Description | +--------+ + + + + | 10/06/ | Orders Only | [facility] | Andrade Hobbs, | | | 2019 | | CARDIOLOGY [place]MEN | [address] | | | | | [address] | [place], [place] | | | | | [place], [place] | [address] | | | | | [address] | | | | | | [phone] | | | +--------+ + + + [...] | | | | | [place] [address] | | | | | | [phone] | | | | | | | | +--------+---------+ + + + | 04/05/ | Office | Cardiology | Andrade Hobbs | | | 2019 | Visit | | MD Curtis ESPARZA | | | | | | [place] | | | | | | [address] | | | | | | | | +--------+---------+ + + + documented as of this encounter Visit Diagnoses Not on filedocumented in this encounter"
--- OUTSIDE RECORDS SUMMARY | ~2020-02-05 | XMS | Encounter Summary ---
Demographics + + + | Address | [address] | | | [place] [address] | + + + | Home Phone [...] [place] | | | | | [address] | | + + + + + | Arin Ulloa | ECON | Unknown | | + + + + + Care Team Providers + +------+ + | Care Supervisor Data Processing Name | Role | Phone | + +------+ + PCP | Unavailable | + +------+ + Encounter Details +--------+ + + + + | Date | Type | Department | Care Team | Description | +--------+ + + + + | 10/03/ | Hospital | [facility] | Wilfrido Salazar MD | Unspecified | | 2009 | [facility] | | Tachycardia | | | | CLINICAL DECISION | | | | | | [address] | | | | | | [place], [place] | | | | | | [address] | | | | | | [phone] | | | +--------+ + + + [...] | | | | | [place] [address] | | | | | | [phone] | | | | | | | | +--------+---------+ + + + | 04/05/ | Office | Cardiology | Andrade oHbbs, | | | 2019 | Visit | | MD Curtis ESPARZA | | | | | | [place] | | | | | | [id number] | | | | | | | [...] Performed At | + + + | [facility] | | | [facility] [place] [address] | | | , | | | [id number]/CARDIOLOGY Patient Name: DEEP ULLOA Date of : | | | 1935 Medical Record: [id number] Account: [id number] | | | OPS/EDVINU [id number]/ Exam Date/Time: 10/03/2009 | | | 11:30 [...] the right groin with 1% lidocaine. A 6-Swedish vascular | | | sheath was inserted [...] then exchanged over the wire to a 5-Swedish | | | IM catheter which was [...] as well | | | as the [place] artery. 7. Two saphenous vein grafts to [...] 09:12 P P | | | A /[id number]/ cc: MARIANNE SERRANO DO | | | DO WILFRIDO HARDING MD | | + + + + + | Procedure Note | + + | Reginaldo Valencia Conversion - 05/23/2019 6:36 PM PDT | | [facility] | | [facility] [place] [address] | | , | | | | [id number]/CARDIOLOGY | | | | Patient Name: DEEP ULLOA | | Date of : 1935 | | Medical Record: [id number] | | Account: [id number] | | OPS/EDVINU [id number]/ | | | | | | Exam [...] groin | | with 1% lidocaine. A 6-Swedish vascular sheath was inserted in the right [...] then exchanged over the wire to a 5-Swedish IM | | catheter which was engaged [...] graft as well | | as the [place] artery. | | 7. Two saphenous vein [...] | P | | A | | /mary/[id number]/ | | cc: MARIANNE SERRANO DO | | NAYAN RUANO DO | | WILFRIDO SALAZAR MD | + + documented in this encounter Visit Diagnoses + + | Diagnosis | + + | Tachycardia, unspecified | + + documented in this encounter"
--- OUTSIDE RECORDS SUMMARY | ~2020-02-05 | XMS | Encounter Summary ---
Demographics + + + | Address | [address] | | | [place] [address] | + + + | Home Phone [...] [place] | | | | | [address] | | + + + + + | Arin Ulloa | ECON | Unknown | | + + + + + Care Team Providers + +------+ + | Care Medical Device Name | Role | Phone | + +------+ + | Fabricio Bah | PCP | | | MD | | | + +------+ + Encounter Details +--------+ + + + + | Date | Type | Department | Care Team | Description | +--------+ + + + + | 03/31/ | Orders Only | [facility] | Roxi, | | | 2018 | | RHEUMATOLOGY [address] | [address] | | | | | [address] | [address] | | | | | [place], [place] | [place] [address] | | | | | [address] | [phone] | | | | | [phone] | | | +--------+ + + + [...] | | | | | [place] [address] | | | | | | [phone] | | | | | | | | +--------+---------+ + + + | 04/05/ | Office | Cardiology | Andrade Hobbs, | | | 2019 | Visit | | MD Curtis ESPARZA | | | | | | [place] | | | | | | [address] | | | | | | | | +--------+---------+ + + + documented as of this encounter Visit Diagnoses Not on filedocumented in this encounter"
--- OUTSIDE RECORDS SUMMARY | ~2020-02-05 | XMS | Encounter Summary ---
Demographics + + + | Address | [address] | | | [place] [address] | + + + | Home Phone [...] | Author | [facility] | | | and [place] | + + + | Organization | [facility] | | | and [...] [place] | | | | | [address] | | + + + + + | Arin Ulloa | ECON | Unknown | | + + + + + Care Team Providers + +------+ + | Care Web Manager Name | Role | Phone | + +------+ + PCP | Unavailable | + +------+ + Encounter Details +--------+ + + + + | Date | Type | Department | Care Team | Description | +--------+ + + + + | 12/09/ | Hospital | [facility] | Derrek Darnell | | | 1998 | Encounter | DEBRA GENERIC | MD [place] | | | | | CONVERSION | [facility] | | | | | DEPARTMENT [address] | [address] | | | | | [facility] | Road [place], [place] | | | | | [place], [place] | [id number] | | | | | [address] | | | | | | [phone] | | | +--------+ + + + [...] | | | | | [place] [address] | | | | | | [phone] | | | | | | | | +--------+---------+ + + + | 04/05/ | Office | Cardiology | Andrade Hobbs, | | | 2019 | Visit | | MD Curtis ESPARZA | | | | | | [place] | | | | | | [id number] | | | | | | | | +--------+---------+ + + + documented as of this encounter Visit Diagnoses Not on filedocumented in this encounter"
--- OUTSIDE RECORDS SUMMARY | ~2020-02-05 | XMS | Encounter Summary ---
Demographics + + + | Address | [address] | | | [place] [address] | + + + | Home Phone [...] [place] | | | | | [address] | | + + + + + | Arin Ulloa | ECON | Unknown | | + + + + + Care Team Providers + +------+ + | Care Employment Legal Assistant Name | Role | Phone | + +------+ + | Fabricio Bah | PCP | | | MD | | | + +------+ + Encounter Details +--------+ + + + + | Date | Type | Department | Care Team | Description | +--------+ + + + + | 03/25/ | Orders Only | [facility] | Roxi, | | | 2016 | | RHEUMATOLOGY [address] | [address] | | | | | [address] | [address] | | | | | [place], [place] | [place] [address] | | | | | [address] | [phone] | | | | | [phone] | | | +--------+ + + + [...] | | | | | [place] [address] | | | | | | [phone] | | | | | | | | +--------+---------+ + + + | 04/05/ | Office | Cardiology | Andrade Hobbs, | | | 2019 | Visit | | MD Curtis ESPARZA | | | | | | [place] | | | | | | [address] | | | | | | | [...]
--- OUTSIDE RECORDS SUMMARY | ~2020-02-05 | XMS | Encounter Summary ---
Demographics + + + | Address | [address] | | | [place] [address] | + + + | Home Phone | | + + + | Preferred Language | Unknown | + + + | Marital Status | | + + + | Yazdanism Affiliation | Unknown | + + + | Race | White | + + + | Ethnic Group | Not or | + + + Author + + + | Author | [facility] | + + + | Organization | [facility] | + + + | Address | Unknown | + + + | Phone | Unavailable | + + + Care Team Providers + +------+ + | Care Cns Name | Role | Phone | + +------+ + PCP | Unavailable | + +------+ + Encounter Details +--------+ + + + + | Date | Type | Department | Care Team | Description | +--------+ + + + + | 03/09/ | Documentati | UNKNOWN DEPARTMENT | Unknown . | | | 2018 | on | [address] [facility] | | | | | | [address] | | | | | | [place], [place] | | | | | | [address] | | | +--------+ + + + [...]
--- OUTSIDE RECORDS SUMMARY | ~2020-02-05 | XMS | Encounter Summary ---
Demographics + + + | Address | [address] | | | [place] [address] | + + + | Home Phone [...] [place] | | | | | [address] | | + + + + + | Arin Ulloa | ECON | Unknown | | + + + + + Care Team Providers + +------+ + | Care Corporate Paralegal Name | Role | Phone | + +------+ + PCP | Unavailable | + +------+ + Encounter Details +--------+ + + + + | Date | Type | Department | Care Team | Description | +--------+ + + + + | 05/04/ | Hospital | [facility] | Derrek Darnell | | | 1998 | Encounter | DEBRA GENERIC | MD Zack [place] | | | | | CONVERSION | [facility] | | | | | DEPARTMENT [address] | [address] | | | | | [facility] | Road [place], [place] | | | | | [place], [place] | [id number] | | | | | [address] | | | | | | [phone] | | | +--------+ + + + [...] | | | | | [place] [address] | | | | | | [phone] | | | | | | | | +--------+---------+ + + + | 04/05/ | Office | Cardiology | Andrade Hobbs, | | | 2019 | Visit | | MD Curtis ESPARZA | | | | | | [place] | | | | | | [phone] | | | | | | | | +--------+---------+ + + + documented as of this encounter Visit Diagnoses Not on filedocumented in this encounter"
--- OUTSIDE RECORDS SUMMARY | ~2020-02-05 | XMS | Encounter Summary ---
Demographics + + + | Address | [address] | | | [place] [address] | + + + | Home Phone [...] [place] | | | | | [address] | | + + + + + | Arin Ulloa | ECON | Unknown | | + + + + + Care Team Providers + +------+ + | Care Injector Assembler Name | Role | Phone | + [...] + + | 06/09/ | Office | [facility] | DevinAndrade, | Chronic systolic | | 2019 | Visit | CARDIOLOGY [place] | MD Curtis ESPARZA | heart failure (HCC) | | | | [address] | [place], [place] | (Primary Dx); | | | | [facility] [address] | [id number] | Coronary artery | | | | [place] | | disease of bypass | | | | [address] | | graft of [place] | | | | [phone] | | heart with stable | | [...] episode of chest pain while preparing for episcopal on Friday, took 2 nitroglycerin at that [...] fatigue lately. Last hospitalization in [facility] on 07 April 2018 secondary to non-ST elevation OH. L eft heart catheterization showed severe three-vessel [...] sinus bradycardia with long first-degree AV block, OH interval of almost 400 ms. 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 KICKING MACHINE OPERATOR of RI. Patent RAM to LAD. [...] | | | | | [place] [address] | | | | | | [phone] | | | | | | | | +--------+---------+ + + + | 04/05/ | Office | Cardiology | Andrade Garcia, | | | 2019 | Visit | | MD Curtis ESPARZA | | | | | | [place] | | | | | | [address] | | | | | | | [...] | | | | | graft of [place] | | | | | | heart [...] | | | | | by [facility] [place] Read Only, | | | | | | [facility] [place] ([id number]), | | | | | | managing editor LARRY DARLING | | | | [...] Coronary artery disease of bypass graft of [place] heart with stable angina pectoris | | (HCC) | + + | Stable angina (HCC) Other and unspecified angina pectoris | + + | Essential hypertension Unspecified essential hypertension | + + documented in this encounter
--- OUTSIDE RECORDS SUMMARY | ~2020-02-05 | XMS | Encounter Summary ---
Demographics + + + | Address | [address] | | | [place] [address] | + + + | Home Phone [...] [place] | | | | | [address] | | + + + + + | Arin Ulloa | ECON | Unknown | | + + + + + Care Team Providers + +------+ + | Care Earth Auger Operator Name | Role | Phone | [...] + + | 12/09/ | Refill | [facility] | Schiefelbein, | Medication Refill | | 2020 | | RHEUMATOLOGY [address] | Tiff Reina, [facility] [address] | | | | | [address] | [address] | | | | | [place], [place] | [place] [address] | | | | | [address] | [phone] | | | | | [phone] | | | +--------+--------+ + + + [...] | | | | | | [place] [address] | | | | | | [phone] | | | | | | | | +--------+---------+ + + + | 04/05/ | Office | Cardiology | Andrade Hobbs, | | | 2019 | Visit | | MD Curtis ESPARZA | | | | | | [facility] [place] | | | | | | [address] | | | | | | | | +--------+---------+ + + + documented as of this encounter Visit Diagnoses + + | Diagnosis | + + | Rheumatoid arthritis of multiple sites with negative rheumatoid factor (HCC) | + + documented in this encounter"
--- OUTSIDE RECORDS SUMMARY | 2020-02-05 21:26 | XMS ---
PreManage Notification: BAYRON ELLER Security Career And Guidance Counselor Events No recent Security Events currently on file [facility] There are no care providers on record at this time. Duane has no Care Guidelines for this patient. Ayse VISIT COUNT (12 MO.) 1 RAFAEL Cerrato TOTAL 1 NOTE: Visits indicate total known visits. ED/UCC VISIT TRACKING (12 MO.) 02/05/2020 21:24 RAFAEL Burger [place] TYPE: Emergency COMPLAINT: - WEAKNESS INPATIENT VISIT TRACKING (12 MO.) No inpatient visits to display in this time frame [id number]
[2020-02-05] MEDS ORDERED: METOPROLOL SUCC25 MG PO (22:03)
[2020-02-05] MEDS ORDERED: ISOSORBIDE MONO60 MG PO (22:05)
[2020-02-05] MEDS ORDERED: MECLIZINE HCL12.5 MG PO (23:30)
--- NOTE | 2020-02-06 11:38 | EKG ---
[facility] [address] [facility] [place] [address] Signed Accelerated Junctional rhythm Septal infarct (cited on or before 07-APR-2018) Abnormal ECG When compared with ECG of 07-APR-2018 18:07, Junctional rhythm has replaced Sinus rhythm Confirmed by GIANLUCA EWBSTER MD ([id number]) on 02/06/2020 11:38:10 AM Electronically Signed By: GIANLUCA WEBSTER MD 02/06/20 1138 PATIENT NAME: BAYRON ELLER JC Electrocardiogram DATE OF : 31 PHYSICIAN: GIANLUCA WEBSTER MD REPORT #: [id number] REPORT IS CONFIDENTIAL AND NOT TO BE RELEASED WITHOUT AUTHORIZATION
== END 2020-02-05 23:41 | disposition home or self-care (01) ==
LOC: ED 21:24
DX: H81.20 Vestibular neuronitis, unspecified ear (principal); I10 Essential (primary) hypertension; Z79.899 Other long term (current) drug therapy
CPT/HCPCS: 70450; 71045; 80053; 81001; 83735; 84484; 85025; 85610; 85730; 99285-25; J7030

== ENCOUNTER 2020-04-22 09:10 | Emergency (ER) | payer MEDICARE, BC ==
[~2020-04-22] VITALS: Ht 177.8 cm; Wt 76.7 kg
--- OUTSIDE RECORDS SUMMARY | ~2020-04-22 | XMS | Encounter Summary ---
Demographics + + + | Address | [address] | | | [place] [address] | + + + | Home Phone | | + + + | Preferred Language | Unknown | + + + | Marital Status | | + + + | Worship Affiliation | Unknown | + + + | Race | White | + + + | Ethnic Group | Not or | + + + Author + + + | Author | [facility] | + + + | Organization | [facility] | + + + | Address | Unknown | + + + | Phone | Unavailable | + + + Care Team Providers + +------+ + | Care Charge Rn Name | Role | Phone | + +------+ + PCP | Unavailable | + +------+ + Encounter Details +--------+ + + + + | Date | Type | Department | Care Team | Description | +--------+ + + + + | 07/07/ | Hospital | Dermatopathology | | | | 2017 | Encounter | [address] | | | | | | Mailcode: [id number] | | | | | | [facility] | | | | | | and Healing, | | | | | | Building [address], [address] | | | | | | Floor [place], [place] | | | | | | [address] | | | | | | [phone] | | | +--------+ + + + + Social History + +-------+ +--------+------+ | Tobacco [...] recent travel history available. | + + documented as of this encounter Plan of Treatment Not on filedocumented as of this encounter Procedures + +--------+ + + + | Procedure Name | Priori | Date/Time | Associated Diagnosis | Comments | | | ty | | | | + +--------+ + + + | DERM PATHOLOGY | Routin | 07/07/2017 | Carcinoma in situ | Results for this | | | e | | of skin of scalp and | procedure are in the | | | | | neck Squamous cell | results section. | | | | | carcinoma of skin | | | | | | of other parts of | | | | | | face | | + +--------+ + + + documented in this encounter Results DERM PATHOLOGY (07/07/2017) + + + + + + | Component | Value | Ref Range | Performed | Pathologist | | | | | At | Signature | + + + + + + | DERMATOPATH | SOURCE OF SPECIMEN:A | | [facility] | | | OLOGY(WET | Medial frontal scalp, | | DERMATOPATH | | | MNT) | shave biopsySOURCE OF | | OLOGY | | | | SPECIMEN:B Rt. Lateral | | | | | | neck, shave biopsySOURCE | | | | | | OF SPECIMEN:C Lt. | | | | | | Preauricular, shave | | | | | | biopsy CLINICAL | | | | | | DESCRIPTION:A: 1.3 x 1.0 | | | | | | cm erythematous | | | | | | hyperkeratotic papule; | | | | | | R/O AK vs SCC.B: 1.2 x | | | | | | 0.7 cm erythematous | | | | | | indurated hyperkeratotic | | | | | | papule; R/O SCC.C: 3.3 | | | | | | x 2.2 cm erythematous | | | | | | hyperkeratotic plaque; | | | | | | R/O AK vs SCC. | | | | | | GROSS | | | | | | DESCRIPTION:Received in | | | | | | formalin are three | | | | | | specimens labeled Artemio, | | | | | | Deep:A: Specimen is | | | | | | labeled "A | | | | | | | | | | | | Medial frontal scalp" | | | | | | and consists of | | | | | | anirregular shave of | | | | | | scaly papular | | | | | | ezybt-hamd-rkf skin, | | | | | | [id number]. Thesurgical | | | | | | margin is inked blue; | | | | | | the tissue is | | | | | | quadrisected, and | | | | | | entirelysubmitted in | | | | | | cassette A1.B: Specimen | | | | | | is labeled "B | | | | | | | | | | | | R lateral neck" and | | | | | | consists of an | | | | | | irregularshave of scaly | | | | | | papular jones-sloorzano skin, | | | | | | [id number]. The surgical | | | | | | margin isinked blue; the | | | | | | tissue is bisected, and | | | | | | entirely submitted in | | | | | | cassette B1.C: Specimen | | | | | | is labeled "C | | | | | | | | | | | | L preauricular" and | | | | | | consists of an | | | | | | irregularshave of scaly | | | | | | papular onsdgd-sujm-bix | | | | | | skin, [id number]. The | | | | | | surgical marginis inked | | | | | | blue; the tissue is | | | | | | quadrisected, and | | | | | | entirely submitted | | | | | | incassette C1. | | | | | | MICROSCOPIC | | | | | | DESCRIPTION:A: There is | | | | | | an asymmetric and poorly | | | | | | circumscribed neoplasm | | | | | | characterizedby | | | | | | parakeratosis overlying | | | | | | atypical keratinocytes | | | | | | at all levels of | | | | | | theepidermis. Most of | | | | | | the cells have | | | | | | pleomorphic, | | | | | | hyperchromatic nuclei, | | | | | | someare in mitosis, and | | | | | | most have eosinophilic | | | | | | cytoplasm. B: | | | | | | There is an asymmetric | | | | | | and poorly circumscribed | | | | | | neoplasm | | | | | | characterizedby | | | | | | parakeratosis overlying | | | | | | atypical keratinocytes | | | | | | at all levels of | | | | | | theepidermis. Most of | | | | | | the cells have | | | | | | pleomorphic, | | | | | | hyperchromatic nuclei, | | | | | | someare in mitosis, and | | | | | | most have eosinophilic | | | | | | cytoplasm. C: | | | | | | There is an asymmetric, | | | | | | poorly circumscribed | | | | | | neoplasm characterized | | | | | | byirregularly sized | | | | | | aggregates of atypical | | | | | | epithelial cells within | | | | | | the upperdermis. The | | | | | | epithelial cell nuclei | | | | | | are pleomorphic and | | | | | | hyperchromatic andmost | | | | | | of the cells have | | | | | | eosinophilic cytoplasm. 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 | | | | | | NOTE: The medial | | | | | | frontal scalp SQUAMOUS | | | | | | CELL CARCINOMA IN SITU | | | | | | extends tothe surgical | | | | | | margins of the shave | | | | | | specimen and additional | | | | | | treatment toassure | | | | | | complete removal would | | | | | | be prudent. B: | | | | | | SQUAMOUS CELL CARCINOMA | | | | | | IN SITU. NOTE: The | | | | | | squamous cell carcinoma | | | | | | in situ is transected | | | | | | at the base of theshave | | | | | | specimen making it | | | | | | difficult to exclude | | | | | | superficial | | | | | | dermalinvolvement. The | | | | | | right lateral neck | | | | | | SQUAMOUS CELL CARCINOMA | | | | | | IN SITU extendsto the | | | | | | surgical margins of the | | | | | | shave specimen and | | | | | | additional treatment | | | | | | toassure complete | | | | | | removal would be | | | | | | prudent. C: | | | | | | SQUAMOUS CELL CARCINOMA, | | | | | | SUPERFICIAL, | | | | | | ACANTHOLYTIC TYPE. | | | | | | NOTE: The left | | | | | | preauricular SQUAMOUS | | | | | | CELL CARCINOMA extends | | | | | | to the surgicalmargins | | | | | | of the shave specimen | | | | | | and additional treatment | | | | | | to assure | | | | | | completeremoval would be | | | | | | prudent. My | | | | | | electronic signature | | | | | | indicates that I have | | | | | | personally reviewed | | | | | | alldiagnostic slides, | | | | | | the gross and/or | | | | | | microscopic portion of | | | | | | thisreport and | | | | | | formulated the final | | | | | | diagnosis. 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
--- OUTSIDE RECORDS SUMMARY | ~2020-04-22 | XMS | Encounter Summary ---
Demographics + + + | Address | [address] | | | [place] [address] | + + + | Home Phone | | + + + | Preferred Language | Unknown | + + + | Marital Status | | + + + | Jain Affiliation | 1077 | + + + | Race | Unknown | + + + | Ethnic Group | Unknown | + + + Author + + + | Author | [facility] | | | and [place] | + + + | Organization | [facility] | | | and [...] [place] | | | | | [address] | | + + + + + | Arin Ulloa | ECON | Unknown | | + + + + + Care Team Providers + +------+ + | Care Loss Prevention/Safety District Manager Name | Role | Phone | + +------+ + PCP | Unavailable | + +------+ + Encounter Details +--------+ + + + + | Date | Type | Department | Care Team | Description | +--------+ + + + + | 03/21/ | Hospital | [facility] | Derrek Darnell | | | 1999 | Encounter | DEBRA MEEK | MD [address] | | | | | [address] | [address] | | | | | [place] | [place] [address] | | | | | [address] | [phone] | | | | | [phone] | | | +--------+ + + + [...] on file | | + + + documented as of this encounter Plan of Treatment +--------+---------+ + + + | Date | Type | Specialty | Care Team | Description | +--------+---------+ + + + | 08/23/ | Office | Cardiology | Andrade Hobbs, | | | 2019 | Visit | | MD Curtis [address]AR[address] | | | | | | [place] | | | | | | [address] | | | | | | | | +--------+---------+ + + + documented as of this encounter Visit Diagnoses Not on filedocumented in this encounter"
--- OUTSIDE RECORDS SUMMARY | ~2020-04-22 | XMS | Encounter Summary ---
Demographics + + + | Address | [address] | | | [place] [address] | + + + | Home Phone | | + + + | Preferred Language | Unknown | + + + | Marital Status | | + + + | Holiness Affiliation | 1077 | + + + | Race | Unknown | + + + | Ethnic Group | Unknown | + + + Author + + + | Author | [facility] | | | and [place] | + + + | Organization | [facility] | | [...] [place] | | | | | [address] | | + + + + + | Arin Ulloa | ECON | Unknown | | + + + + + Care Team Providers + +------+ + | Care Fiscal Clerk Name | Role | Phone | + +------+ + PCP | Unavailable | + +------+ + Encounter Details +--------+ + + + + | Date | Type | Department | Care Team | Description | +--------+ + + + + | 03/10/ | Hospital | [facility] | Sathish Appiah S | | | 2001 | Encounter | [facility] | | | | | | LABORATORY [address] | | | | | | [address] [place] | | | | | | [address] | | | | | | [phone] | | | +--------+ + + + [...] [place] | | | | | | [address] | | | | | | | | +--------+---------+ + + + documented as of this encounter Visit Diagnoses Not on filedocumented in this encounter"
--- OUTSIDE RECORDS SUMMARY | ~2020-04-22 | XMS | Clinical Summary ---
Demographics + + + | Address | [address] | | | [place] [address] | + + + | Home Phone | | + + + | Preferred Language | Unknown | + + + | Marital Status | | + + + | Jehovah'S Witness Affiliation | 1077 | + + + | Race | Unknown | + + + | Ethnic Group | Unknown | + + + Author + + + | Author | [facility] | | | and [place] | + + + | Organization | [facility] | | | [...] [place] | | | | | [address] | | + + + + + | Arin Ulloa | ECON | Unknown | | + + + + + Care Team Providers + +------+ + | Care Shell Machine Operator Name | Role | Phone | + +------+ + | Fabricio Bah | PCP | | | MD | | | + +------+ + Allergies + + + + + + | Active Allergy | Reactions | Severity | Noted | Comments | | | | | Date | | + + + + + + | Adhesive & Tape | Other (See Comments) | Medium | 07/31/20 | Adhesives in tape. | | | | | 17 | Skin very fragile. | + + + + + + | Pravastatin | Other (See Comments) | Medium | 07/31/20 | Myalgias, myositis | | | | | 17 | | + + + + + + Medications + + + +---------+------+------+-------+ | Medication | Sig | Dispensed | Refills | Star | End | Statu | | | | | | t | Date | s | | | | | | Date | | | + + + +---------+------+------+-------+ | zolpidem (AMBIEN) | Take 10 mg by mouth | | 0 | | | Activ | | 10 mg tablet | nightly as needed | | | | | e | | | for Insomnia. | | | | | | + + + +---------+------+------+-------+ | citalopram | Take 20 mg by mouth | | 0 | | | Activ | | (CELEXA) 20 mg | Daily. | | | | | e | | tablet | | | | | | | + + + +---------+------+------+-------+ | timolol maleate | Place 1 drop into | | 0 | | | Activ | | (TIMOPTIC) 0.5% | the right eye Daily. | | | | | e | | ophthalmic solution | | | | | | | + + + +---------+------+------+-------+ | cholecalciferol | Take 25 mcg by mouth | | 0 | | | Activ | | (VITAMIN D-3) 25 mcg | Daily. | | | | | e | | (1,000 units) | | | | | | | | tablet | | | | | | | + + + +---------+------+------+-------+ | clopidogrel | Take 1 tablet by | 90 | 3 | 02/2 | / | Activ | | (PLAVIX) 75 mg | mouth Daily. | tablet | | 0/20 | 9/20 | e | | tablet | | | | 20 | 21 | | + + + +---------+------+------+-------+ | lisinopril | TAKE 1 TABLET DAILY | 90 | 3 | 04/0 | | Activ | | (PRINIVIL, ZESTRIL) | | tablet | | 6/20 | | e | | 10 mg tablet | | | | 20 | | | + + + +---------+------+------+-------+ | predniSONE | TAKE 1 TABLET DAILY | 90 | 1 | 06/2 | | Activ | | (DELTASONE) 5 mg | WITH BREAKFAST | tablet | | 2/20 | | e | | tablet | | | | 20 | | | + + + +---------+------+------+-------+ | sulfaSALAzine | take 1 tablet by | 180 | 0 | 06/ | | Activ | | (AZULFIDINE) 500 mg | mouth twice a day | tablet | | 2/20 | | e | | tabletIndications: | | | | 20 | | | | Rheumatoid arthritis | | | | | | | | of multiple sites | | | | | | | | with negative | | | | | | | | rheumatoid factor | | | | | | | | (HCC) | | | | | | | + + + +---------+------+------+-------+ | nitroglycerin | Place 0.4 mg under | | 0 | | | Activ | | (NITROSTAT) 0.4 mg | the tongue every 5 | | | | | e | | SL tablet | minutes as needed | | | | | | | | for Chest pain. | | | | | | + + + +---------+------+------+-------+ | ascorbic acid | Take 500 mg by mouth | | 0 | | | Activ | | (VITAMIN C) 500 mg | Daily. | | | | | e | | tablet | | | | | | | + + + +---------+------+------+-------+ | isosorbide | Take 1.5 tablets by | 180 | 3 | 07/0 | | Activ | | mononitrate 60 mg ER | mouth Daily Take 90 | tablet | | 8/20 | | e | | tablet | mg in am and 30 mg | | | 20 | | | | | in pm.. | | | | | | + + + +---------+------+------+-------+ | aspirin 81 MG | Take 81 mg by mouth | | 0 | 06/2 | 07/0 | Disco | | tablet | daily. | | | 7/20 | 8/20 | ntinu | | | | | | 16 | 20 | ed | + + + +---------+------+------+-------+ | metoprolol | Take 1 tablet by | 90 | 3 | 10/2 | 07/0 | Disco | | succinate | mouth Daily. | tablet | | 8/20 | 8/20 | ntinu | | (TOPROL-XL) 25 mg 24 | | | | 19 | 20 | ed | | hr tablet | | | | | | | + + + +---------+------+------+-------+ | nepafenac (ILEVRO) | Place 1 drop into | | 0 | | 07/0 | Disco | | 0.3% ophthalmic | the right eye Daily. | | | | 8/20 | ntinu | | suspension | | | | | 20 | ed | | | | | | | | (Ther | | | | | | | | apy | | | | | | | | compl | | | | | | | | eted) | + + + +---------+------+------+-------+ | sodium chloride | 1 drop as needed. | | 0 | | 07/0 | Disco | | (LORIN 128) 5% | | | | | 8/20 | ntinu | | ophthalmic solution | | | | | 20 | ed | | | | | | | | (Ther | | | | | | | | apy | | | | | | | | compl | | | | | | | | eted) | + + + +---------+------+------+-------+ | prednisoLONE (PRED | 1 drop 4 times | | 0 | | 07/0 | Disco | | FORTE) 1% | daily. | | | | 8/20 | ntinu | | ophthalmic | | | | | 20 | ed | | suspension | | | | | | (Ther | | | | | | | | apy | | | | | | | | compl | | | | | | | | eted) | + + + +---------+------+------+-------+ | isosorbide | Take 1.5 tablets by | 150 | 3 | 04/1 | 07/0 | Disco | | mononitrate 60 mg ER | mouth Daily. Take 90 | tablet | | 3/20 | 8/20 | ntinu | | tablet | mg in am and 30 mg | | | 20 | 20 | ed | | | in pm. | | | | | (Reor | | | | | | | | lynn | | | | | | | | (no | | | | | | | | Cance | | | | | | | | l Rx | | | | | | | | msg)) | + + + +---------+------+------+-------+ Active Problems + + + | Problem | Noted Date | + + + | management scientist systemic steroid user - Prednisone | 08/02/2019 | + + + + + | Last Assessment & Plan: Steroids: I had a lengthy discussion | | with the patient about the potential side effects of steroids. | | Most common side effects are weight gain and mood instability | | (worsened anxiety). Other side effects include but not limited to | | - development of facial hair (in women), hyperglycemia, | | hyperlipidemia, glaucoma, cataracts, weight gain, hypertension, | | acne, infection, skin fragility and poor wound healing, skin | | bruising, muscle weakness, development of gastritis and gastric | | ulcers, and increased risk for developing osteopenia/osteoporosis | | and osteonecrosis (AVN), which may need joint replacements | | .Patient understands to avoid NSAIDs while taking steroids. | + + + + + | Chronic systolic heart failure | 10/14/2018 | + + + | High risk medication use | 07/29/2018 | + + + + + | Last Assessment & Plan: Update labs next week- will fax to | | [facility] in [place], and continue to monitor closely while | | on DMARD and/or biologic medication. Counseled regarding | | medication compliance as well as potential toxicities with | | medications such as cytopenias, liver abnormalities and risks for | | infection, and the need for routine blood work monitoring. 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 Responding well to current treatment | | plan. No change in treatment plan. Patient understands that | | treatment is penitentiary and if patient fails to continue regimen , | | the disease has propensity to flare.RTC 3-4 mos | + + + + + | Primary osteoarthritis involving multiple joints | 10/23/2015 | + + + | Hx of CABG | | + + + | penitentiary (current) use of anticoagulants - clopidogrel (PLAVIX) | | | | | + + + + + | Overview: clopidogrel (PLAVIX) | + + + +---+ | Chronic renal insufficiency, stage 2 (mild) | | + +---+ + + | Overview: 3140-5855: GFR 50's-80's | + + Resolved Problems + + + + | Problem | Noted | Resolved | | | Date | Date | + + + + | NSTEMI (non-ST elevated myocardial infarction) | 04/07/20 | | | | 18 | 9 | + + + + | Fatigue | 04/07/20 | | | | 18 | 0 | + + + + | AMANDEEP Inhibitors - Daily Use | | | | | | 0 | + + + + | Beta Blockers - Daily Use | | | | | | 0 | + + + + Encounters +--------+ + + + + | Date | Type | Specialty | Care Team | Description | +--------+ + + + + | 04/13/ | Telephone | Cardiology | Uma Hobbs, | LABS (LAB ENTRY | | 2019 | | | MD | 02/05/2020, 03/21/2020) | +--------+ + + + + | 04/05/ | Office | Cardiology | Uma Hobbs, | Chronic systolic | | 2019 | Visit | | MD | heart failure (HCC) | | | | | | (Primary Dx); | | | | | | Coronary artery | | | | | | disease of bypass | | | | | | graft of rampart | | | | | | heart with stable | | | | | | angina pectoris | | | | | | ([facility]); Stable angina | | | | | | (HCC); Essential | | | | | | hypertension | +--------+ + + + + | 03/29/ | Telephone | Rheumatology | Roxi, | | | 2019 | | | [place] | | +--------+ + + + + | 03/20/ | Virtual | Rheumatology | Roxi, | Rheumatoid arthritis | | 2019 | Office | | [place] | of multiple sites | | | Visit | | | with negative | | | | | | rheumatoid factor | | | | | | ([facility]) (Primary Dx); | | | | | | Rheumatoid | | | | | | arthritis, involving | | | | | | unspecified site, | | | | | | unspecified | | | | | | rheumatoid factor | | | | | | presence ([facility]); High | | | | | | risk medication use | +--------+ + + + + | 01/26/ | Telephone | Rheumatology | Roxi, | Other (Called for | | 2019 | | | [place] | Virtual Visit) | +--------+ + + + + from Last 3 Months Social History + +-------+ +--------+------+ | Tobacco Use | Types | Packs/Day | Years | Date | | | | | Used | | + +-------+ +--------+------+ | Never Smoker | | | | | + +-------+ +--------+------+ + +------+---+---+ | Smokeless Tobacco: | Chew | | | | Current User | | | | + +------+---+---+ + + +---------+ + | Alcohol Use | Drinks/Week | oz/Week | Comments | + + +---------+ + | Yes | 1 Glasses of wine | 1.0 | Occasional | + + +---------+ + + + + | Sex Assigned at | Date Recorded | | | | + + + | Not on file | | + + + Last Filed Vital Signs + + + + + | Vital Sign | Reading | Time Taken | Comments | + + + + + | Blood Pressure | 126/72 | 04/05/2020 12:59 PM | | | | | PDT | | + + + + + | Pulse | 55 | 04/05/2020 12:59 PM | | | | | PDT | | + + + + + | Temperature | 36 C (96.8 F) | 08/06/2019 3:45 PM | | | | | PST | | + + + + + | Respiratory Rate | 14 | 08/06/2019 3:45 PM | | | | | PST | | + + + + + | Oxygen Saturation | 96% | 04/05/2020 12:59 PM | | | | | PDT | | + + + + + | Inhaled Oxygen | - | - | | | Concentration | | | | + + + + + | Weight | 78 kg (172 lb) | 04/05/2020 12:59 PM | | | | | PDT | | + + + + + | Height | 177.8 cm (5' 10") | 04/05/2020 12:59 PM | | | | | PDT | | + + + + + | Body Mass Index | 24.68 | 04/05/2020 12:59 PM | | | | | PDT | | + + + + + Plan of Treatment +--------+---------+ + + + | Date | Type | Specialty | Care Team | Description | +--------+---------+ + + + | 08/23/ | Office | Cardiology | Uma Hobbs, | | | 2019 | Visit | | MD Curtis ESPARZA | | | | | | [place] | | | | | | [address] | | | | | | | | +--------+---------+ + + + + + + + + | Health Maintenance | Due Date | Last | Comments | | | | Done | | + + + + + | Med Mgmt: Vit D | | | | | | 4 | | | + + + + + | Medication | | | | | Management | 4 | | | + + + + + | Vaccine: | | | | | Dtap/Tdap/Td (1 - | 3 | | | | Tdap) | | | | + + + + + | Vaccine: Zoster (1 | | | | | of 2) | 4 | | | + + + + + | Vaccine: | | | | | Pneumococcal 65+ (1 | 9 | | | | of 1 - PPSV23) | | | | + + + + + | Adult Annual | | | | | Wellness Visit | 9 | | | + + + + + | Med Mgmt: ALT | | 08/02/20 | | | | 0 | 19, | | | | | 12/29/19 | | | | | 19, | | | | | 07/29/20 | | | | | 18, | | | | | Addition | | | | | al | | | | | history | | | | | exists | | + + + + + | Med Mgmt: AST | | 08/02/20 | | | | 0 | 19, | | | | | 12/29/19 | | | | | 19, | | | | | 07/29/20 | | | | | 18, | | | | | Addition | | | | | al | | | | | history | | | | | exists | | + + + + + | Vaccine: Influenza | | | | | (#1) | 0 | | | + + + + + | Med Mgmt: Cr | | 08/02/20 | | | | 0 | 19, | | | | | 12/29/19 | | | | | 19, | | | | | 10/15/19 | | | | | 19, | | | | | Addition | | | | | al | | | | | history | | | | | exists | | + + + + + | Med Mgmt: K | | 08/02/20 | | | | 0 | 19, | | | | | 12/29/19 | | | | | 19, | | | | | 10/15/19 | | | | | 19, | | | | | Addition | | | | | al | | | | | history | | | | | exists | | + + + + + Implants + +--------+--------+ +--------+--------+--------+ | Implanted | Type | Area | Manufacture | Device | Shelf | Model | | | | | r | | Expira | / | | | | | | Identi | tion | Serial | | | | | | fier | Date | / Lot | + +--------+--------+ +--------+--------+--------+ | Lens [id number] 21.0 Diopter - | Generi | Right: | [facility] | | 02/26/ | [id number] | | [id number]: Qty: 1 | c | Eye | - ALCN | | 4 | 21.0 | | on 08/06/2019 by Johanna | | | | | | /[id number] | | Esequiel John MD at [facility] | | | | | | [id number] | | [facility] | | | | | | / | | [facility] | | | | | | | + +--------+--------+ +--------+--------+--------+ Procedures + +--------+ + + + | Procedure Name | Priori | Date/Time | Associated Diagnosis | Comments | | | ty | | | | + +--------+ + + + | ECG 12 LEAD | Routin | 04/05/2020 | Chronic systolic | Results for this | | | e | 1:07 PM | heart failure (HCC) | procedure are in the | | | | PDT | Coronary artery | results section. | | | | | disease of bypass | | | | | | graft of rampart | | | | | | heart with stable | | | | | | angina pectoris | | | | | | (HCC) Stable angina | | | | | | (HCC) Essential | | | | | | hypertension | | + +--------+ + + + from Last 3 Months Results ECG 12 lead (04/05/2020 1:07 PM PDT) + + + + + + | Component | Value | Ref Range | Performed | Pathologist | | | | | At | Signature | + + + + + + | VENTRICULAR | 53 | BPM | [facility] | | | RATE EKG | | | | | + + + + + + | ATRIAL RATE | 53 | BPM | [facility] | | + + + + + + | P-R | 584 | ms | [facility] | | | INTERVAL | | | | | + + + + + + | QRS | 84 | ms | [facility] | | | DURATION | | | | | + + + + + + | Q-T | 460 | ms | [facility] | | | INTERVAL | | | | | + + + + + + | Q-T | 431 | ms | [facility] | | | INTERVAL | | | | | | (CORRECTED) | | | | | + + + + + + | QRS AXIS | 59 | degrees | [facility] | | + + + + + + | T AXIS | 57 | degrees | [facility] | | + + + + + + | INTERPRETAT | Sinus bradycardia with | | [facility] | | | ION TEXT | 1st degree A-V | | | | | | blockSeptal infarct , | | | | | | age undeterminedAbnormal | | | | | | ECGWhen compared with | | | | | | ECG of 09-JUN-2019 | | | | | | 13:04,No significant | | | | | | change was found | | | | | | Confirmed by OLGA | | | | | | UMA SHETH ([id number]) on | | | | | | 04/06/2020 8:12:16 AM | | | | + + + + + + + + | Specimen | + + | | + + + + + | Narrative | Performed At | + + + | | | + + + + +---------+ + + | Performing | Address | City/State/Zipcode | Phone Number | | Organization | | | | + +---------+ + + | [facility] | | | | + +---------+ + + from Last 3 Months Insurance + +--------+ +--------+ +---------+--------+ | Payer | Benefi | Subscriber | Effect | Phone | Address | Type | | | t Plan | ID | bc | | | | | | / | | Dates | | | | | | Group | | | | | | + +--------+ +--------+ +---------+--------+ | BCBS | BCBS | [id number] | 09/29/19 | | | PPO | | | FEDERA | | 02-Pre | | | | | | L FEP | | sent | | | | + +--------+ +--------+ +---------+--------+ | MEDICARE | MEDICA | [id number] | 05/30/19 | [phone] | | Medica | | | RE | | 96-Pre | 5 | | re | | | PART A | | sent | | | | | | AND B | | | | | | + +--------+ +--------+ +---------+--------+ | MEDICARE | MEDICA | [id number] | 05/30/19 | [phone] | | Medica | | | RE | | 96-Pre | 5 | | re | | | PART A | | sent | | | | | | AND B | | | | | | + +--------+ +--------+ +---------+--------+ | BCBS | BCBS | [id number] | 09/29/19 | | | PPO | | | FEDERA | | 02-Pre | | | | | | L FEP | | sent | | | | + +--------+ +--------+ +---------+--------+ + +--------+ +--------+ + + | Guarantor Name | Accoun | Relation to | Date | Phone | Billing Address | | | t Type | Patient | of | | | | | | | | | | + +--------+ +--------+ + + | Deep Ulloa | Person | Self [birth year] | [address] | | | al/Fam | | 1936 | [phone] | [place], [place] | | | sonny | | | 0 (Home) | [address] | + +--------+ +--------+ + + | Deep Ulloa | Person | Self [birth year] | [address] | | | al/Fam | | 1936 | [phone] | [place], [place] | | | sonny | | | 0 (Home) | [address] | + +--------+ +--------+ + + Advance Directives + + + + + | Type | Date Recorded | Patient | Explanation | | | | Sand Blaster | | + + + + + | Power of | | | | | Sand Cutter Operator | | | | + + + + + | Advance | 08/06/2019 10:28 | | | | Directive | AM | | | + + + + + + + + + + | Code Status | Date | Date | Comments | | | Activated | Inactivated | | + + + + + | Full Code | 08/06/2019 | 08/06/2019 | | | | 3:54 PM | 6:32 PM | | + + + + +
--- OUTSIDE RECORDS SUMMARY | ~2020-04-22 | XMS | Encounter Summary ---
Demographics + + + | Address | [address] | | | [place] [address] | + + + | Home Phone | | + + + | Preferred Language | Unknown | + + + | Marital Status | | + + + | Jain Affiliation | 1077 | + + + | Race | Unknown | + + + | Ethnic Group | Unknown | + + + Author + + + | Author | [facility] | | | and [place] | + + + | Organization | [facility] | | | and [...] [place] | | | | | [address] | | + + + + + | Arin Ulloa | ECON | Unknown | | + + + + + Care Team Providers + +------+ + | Care Band Tier Name | Role | Phone | + +------+ + PCP | Unavailable | + +------+ + Encounter Details +--------+ + + + + | Date | Type | Department | Care Team | Description | +--------+ + + + + | 05/04/ | Hospital | [facility] | Derrek Darnell | | | 1998 | Encounter | [facility] | MD Zack [address] | | | | | CONVERSION | [address] | | | | | DEPART[address] | [place] [address] | | | | | [address] | [phone] | | | | | [place], [place] | | | | | | [address] | | | | | | [phone] | | | +--------+ + + + [...] [place] | | | | | | [address] | | | | | | | | +--------+---------+ + + + documented as of this encounter Visit Diagnoses Not on filedocumented in this encounter"
--- OUTSIDE RECORDS SUMMARY | ~2020-04-22 | XMS | Encounter Summary ---
Demographics + + + | Address | [address] | | | [place] [address] | + + + | Home Phone | | + + + | Preferred Language | Unknown | + + + | Marital Status | | + + + | Presybeterian Affiliation | 1077 | + + + | Race | Unknown | + + + | Ethnic Group | Unknown | + + + Author + + + | Author | [facility] | | | and [place] | + + + | Organization | [facility] | | [...] [place] | | | | | [address] | | + + + + + | Arin Ulloa | ECON | Unknown | | + + + + + Care Team Providers + +------+ + | Care Plant Manager Name | Role | Phone | + +------+ + | Fabricio Bah | PCP | | | MD | | | + +------+ + Encounter Details +--------+ + + + + | Date | Type | Department | Care Team | Description | +--------+ + + + + | 04/13/ | Orders Only | [facility] | Roxi, | | | 2019 | | RHEUMATOLOGY [address] | [address] [address] | | | | | [address] | [address] | | | | | [place], [place] | [place] [address] | | | | | [address] | [phone] | | | | | [phone] | | | +--------+ + + + [...] [place] | | | | | | [address] | | | | | | | | +--------+---------+ + + + documented as of this encounter Visit Diagnoses Not on filedocumented in this encounter"
--- OUTSIDE RECORDS SUMMARY | ~2020-04-22 | XMS | Encounter Summary ---
Demographics + + + | Address | [address] | | | [place] [address] | + + + | Home Phone | | + + + | Preferred Language | Unknown | + + + | Marital Status | | + + + | Evangelical Affiliation | 1077 | + + + | Race | Unknown | + + + | Ethnic Group | Unknown | + + + Author + + + | Author | [facility] | | | and [place] | + + + | Organization | [facility] | | | [...] [place] | | | | | [address] | | + + + + + | Arin Ulloa | ECON | Unknown | | + + + + + Care Team Providers + +------+ + | Care Management Aide Name | Role | Phone | + +------+ + | Fabricio Bah | PCP | | | MD | | | + +------+ + Encounter Details +--------+ + + + + | Date | Type | Department | Care Team | Description | +--------+ + + + + | 10/23/ | Orders Only | [facility] | Roxi, | | | 2016 | | RHEUMATOLOGY [address] | [address] | | | | | [address] | [address] | | | | | [place], [place] | [place] [address] | | | | | [address] | [phone] | | | | | [phone] | | | +--------+ + + + [...] [place] | | | | | | [address] | | | | | | | [...] + + + + + + | Non- | 4.60 | 4.20 - 5.70 | EXTERNAL | | | Red Blood | | | LAB | | | Cells | | | | | | Counted | | | [...]
--- OUTSIDE RECORDS SUMMARY | ~2020-04-22 | XMS | Encounter Summary ---
Demographics + + + | Address | [address] | | | [place] [address] | + + + | Home Phone [...] [place] | | | | | [address] | | + + + + + | Arin Ulloa | ECON | Unknown | | + + + + + Care Team Providers + +------+ + | Care Dealer Analyst Name | Role | Phone | + [...] + + | 12/09/ | Refill | [facility] | Schiefelbein, | Medication Refill | | 2020 | | RHEUMATOLOGY [address] | Tiff Reina, [facility] [address] | | | | [address] | [address] | | | | | [place], [place] | [place] [address] | | | | | [address] | [phone] | | | | | [phone] | | | +--------+--------+ + + + [...] + + documented as of this encounter Miscellaneous Notes Telephone Encounter - Maki Mccloud, Line Maintenance Supervisor - 12/13/2019 1:43 PM PDTMedicat ion requested: SSZ By:alexandru morrison Last filled:09/20/2019 Last Labs:08/02/2019 Last visit:08/02/2019 Next visit: 01/31/2020 Eye exam:na No result notes Last chart note stated:No clinical evidence of active disease on today's exam. Responding well to current treatment plan. No change in treatment plan. 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 Please advise docu mented in this encounter Plan of Treatment +--------+---------+ + + + | Date | Type | Specialty | Care Team | Description | +--------+---------+ + + + | 08/23/ | Office | Cardiology | Andrade Hobbs, | | | 2019 | Visit | | MD Curtis ESPARZA | | | | | | [place] | | | | | | [id number] | | | | | | | | +--------+---------+ + + + documented as of this encounter Visit Diagnoses + + | Diagnosis | + + | Rheumatoid arthritis of multiple sites with negative rheumatoid factor (HCC) | + + documented in this encounter"
--- OUTSIDE RECORDS SUMMARY | ~2020-04-22 | XMS | Encounter Summary ---
Demographics + + + | Address | [address] | | | [place] [address] | + + + | Home Phone [...] | Organization | [facility] | | | and [place] | + [...] [place] | | | | | [phone] | | + + + + + | Arin Ulloa | ECON | Unknown | | + + + + + Care Team Providers + +------+ + | Care Manager French Name | Role | Phone | + +------+ + PCP | Unavailable | + +------+ + Encounter Details +--------+ + + + + | Date | Type | Department | Care Team | Description | +--------+ + + + + | 04/07/ | Hospital | [facility] | Wade Lake DO | | | 2018 - | Encounter | [facility] | [address] | | | | | CARE FLOOR [address] | [place] [address] | | | 04/13/ | | [address] | [phone] | | | 2017 | | [place], [place] | | | | | | [address] | | | | | | [phone] | | | +--------+ + + + [...] + + + | Blood Pressure | 133/66 | 04/13/2018 11:01 AM | | | | | PDT | | + + + + + | Pulse | 79 | 04/13/2018 11:01 AM | | | | | PDT | | + + + + + | Temperature | 36.8 C (98.3 F) | 04/13/2018 11:01 AM | | | | | PDT | | + + + + + | Respiratory Rate | 20 | 04/13/2018 11:01 AM | | | | | PDT | | + + + + + | Oxygen Saturation | - | - | | + + + + + | Inhaled Oxygen | - | - | | | Concentration | | | | + + + + + | Weight | 79.2 kg (174 lb 9.6 | 04/13/2018 11:01 AM | | | | oz) | PDT | | + + + + + | Height | 177.8 cm (5' 10") | 04/13/2018 11:01 AM | | | | | PDT | | + + + + + | Body Mass Index | 25.05 | 04/13/2018 11:01 AM | | | | | PDT | | + + + + + documented in this encounter Discharge Summaries John Fuentes MD - 04/13/2018 9:48 AM PDT Discharge Summaries by John Herring MD at 04/13/1848 Author: John Herring MD Service: Hospitalist Author Type: Physician Filed: 04/13/18 1557 Date of Service: 04/13/18947 Status: Signed Clearing Supervisor: John Herring MD (Physician) Related Notes: Original Note by John Herring MD (Physician) filed at 04/13/18 1059 [facility]: Hospitalist Physician Discharge Summary Patient ID: Bayron Ulloa 1935 82 y.o. Admit date: 04/07/2018 Discharge date: 04/13/2018 Admitting Physician: Wade Lake DO Discharge Physician: John Herring MD Consultants: Treatment Team: Consulting Physician: Ry Scales MD Consulting Physician: Luis Tse MD Admitting Provider: Wade Lake DO Primary Discharge Diagnoses: Principal Problem: NSTEMI (non-ST elevated myocardial infarction) ([facility]) Active Problems: Rheumatoid arthritis of multiple sites with negative rheumatoid factor (HCC) History of acute myocardial infarction Hypertension CAD (coronary artery disease) Fatigue GI (gastrointestinal bleed) Tobacco use disorder Resolved Problems: * No resolved hospital problems. * HPI and Hospital Course: Chief complaint: chest pain History of present illness: came to ED at [facility] in [place], [place] today mckay use of sudden onset chest pain at 5 PM today. He was eating dinner in his home with spouse charly nd had just finished the meal and developed uncomfortable burning sensation in L-[address] [place] [address]. It radiated into both arms. There was no associated dyspnea, nausea, or sweats. 911 was called and EMS gave him nitro x3, which did not affect the symptoms. He further got nitro pa missael in ED and also heartburn medication. His symptoms improved at that point. Now the sympto ms are gone. ED noted the patient's cardiac history and requested transfer to [facility] for further workup. The patient has had multiple UT's in the past and had 2 CABG's, as well. He used to follow with Dr Jenkins, who has now retired. He hasn't established care with a new compliance field technician vicky borrego "everything's been going well." He last had heart cath in 2009 for, as the patient describ es, cardiac clearance to get cholecystectomy. I have included some of the cath report here: Exam Date/Time: 10/03/2009 11:30 A Ordering Provider: SWAPNA CARRERA Order Detail: 5410 / / HCL Exam Description: CCL HEART CATH LT RETRO PERC ... INDICATIONS The patient is a very pleasant 73-year-old gentleman with past medical history of coronary artery disease status post a previous coronary artery bypass graft surgery who had a new onset of atrial flutter and fibrillation. He was suspected of having progression of his coronary artery disease and since he cannot undergo a stress test in view of joint problems involving his upper extremities, cardiac catheterization was advised to assess the status of his coronary arteries as well as his bypass grafts. ... CORONARY ANGIOGRAPHY 1. Left main had a mid 40% plaque. 2. The LAD had mild diffuse calcification with mild diffuse disease. The mid segment of the LAD had a discrete 70% stenosis. The first diagonal branch was a small-caliber vessel with a mid 90% stenosis. 3. The ramus intermedius was totally occluded at its ostium. 4. The left circumflex was a very small-caliber vessel with an ostial 99% stenosis. 5. The right coronary artery was totally occluded at its ostium. The mid segment of the RCA was filling via bridging collaterals. 6. The very distal portion of the RCA was filling via collaterals from the distal LAD, visualized upon injection of the RAM graft as well as the [place] artery. 7. Two saphenous vein grafts to the RCA appeared to be totally occluded. 8. The saphenous vein graft to the diagonal or an obtuse marginal branch was totally occluded. 9. Saphenous vein graft to the ramus intermedius was patent without any significantly obstructive stenosis in the ramus intermedius. 10. The RAM to the LAD was patent. The LAD beyond the RAM anastomosis did not have any significantly obstructive stenosis. LEFT VENTRICULOGRAM Left ventriculogram revealed a low normal left ventricular systolic function with ejection fraction of 50% with posterobasal hypokinesis. CONCLUSION 1. Coronary artery and graft disease as discussed above. 2. Low normal left ventricular systolic function, ejection fraction of 50%, with posterobasal hypokinesis. 3. Mildly elevated left ventricular end-diastolic pressure. RECOMMENDATIONS 1. Medical therapy. 2. Aggressive risk factor modification."..............per admission HP by Dr. Lake on 04/07 Mr. Ulloa presented to [facility] on 04/07/2018 with chief diagnosis of a non-ST elevation UT in the context of rheumatoid arthritis (on active therapy with predni sone and sulfasalazine), a history of coronary artery disease with previous CABG with 1 redo surgery in the remote past, hypertension, chronic tobacco use disorder (tried quitting for the past 65 years). [address] Lake's history and physical for presentation detail. The patient was admit andrae and treated with aggressive medical therapy. Cardiology was consulted. The patient und erwent cardiac catheterization by Dr. Warren, which revealed large thrombus burden in large old vein graft to much smaller ramus, with extension of the thrombus to [place] ramus. Due t o extensive coronary artery disease, PCI carried very high risk of failure and vessel occlus ion, with resultant no-reflow phenomenon. Following careful consideration, Dr. Warren recom mended optimization of medical therapy only and continuation post cardiac catheterization of heparin and Integrilin drips for 48 hours. This was continued. At the end of 48-hour period, the patient developed acute GI blood loss with bright red blo od in stools. Heparin and Integrilin were discontinued. The patient was started on high-do se intravenous PPI therapy. His antiplatelet treatment was continued. GI was consulted and recommended conservative therapy without option of EGD due to recent non-ST elevation UT. The patient did well with conservative therapy, with resolution of hematochezia and maintain ing normal or relatively normal hemoglobin and hematocrit levels. He subsequently had sever al bowel movements which were neither melenic nor with bright red blood. He had no nausea o r vomiting and no hematochezia. He had no epigastric discomfort. He was continued, in the post cardiac catheterization and after onset of acute GI blood los s, only on aspirin. After 48 hours of no evidence of blood loss or further bleeding, Plavix was reinitiated and the patient was observed on both antiplatelets and antibiotic therapy f or the next 24 hours prior to discharge. On the day of discharge, he maintained normal hemoglobin and hematocrit and no evidence of further bleeding. He was chest pain free and able to ambulate short distances. The patient's medical therapy was optimized by increasing metoprolol dose to 50 mg daily as well as isosorbide mononitrate to 60 mg daily, along with continuation of low-dose lisinopr il and statin therapy. The systolic blood pressures at discharge remained as outlined below at 120 to 130 range, with HR 55 to 79, but normal oxygen saturation on room air. The patient will follow up with cardiology, Dr. Hobbs (the patient to establish a new nd tient care with Dr. Hobbs) in [place] where the patient prefers to see compliance field technician. T he patient lives in the [place] area. Throughout this hospitalization the patient was managed from the cardiology standpoint by Romero Scales, whose care and recommendations were greatly appreciated, along with Dr. Warren , who performed cardiac catheterization. At the present time the patient will not proceed with any endoscopic GI evaluation due to b eing high risk for any anesthesia-based procedures following his non-ST elevation UT [facility] ed. Prior to discharge patient was given K replacement 40 mEq po qday and daily dose 20 mEq per day was provided for the patient. Recommend to recheck BMP with electrolytes and CBC sejal rice follow up visit in 1-2 weeks. Please note that : Patient was previously given prescription for Brilianta ( script was e- scripted to [facility] mail pharmacy in [facility] ) by Dr. Warren but due to patient's GI blood loss this medication has been cancelled and the recommendation is for the patient to contin ue combination of ASA/Plavix for now. I personally called the pharmacy and talked to repres angel Calderon who made specific notes to cancel this [facility] / to cancel Brilinata was documented by the outside energy sales representatives in the [facility] [employer] system. Past Medical History: Past Medical History Diagnosis Date Coronary artery disease Osteoarthritis Rheumatoid arthritis (HCC) Past Surgical History Procedure Laterality Date CARDIAC SURGERY CHOLECYSTECTOMY CORONARY ARTERY BYPASS GRAFT HAND SURGERY Discharged Condition: Stable for discharge as stated above. Significant Diagnostic Studies: X-ray Chest 1 View Result Date: 04/07/2018 This is a non-reportable procedure without a radiologist report and is used for image stora [employer] only Cl Left Heart Cath With Coronary Angio And Grafts Result Date: 04/12/2018 DA TE OF PROCEDURE: 04/08/2018. PROCEDURES PERFORMED: 1. Left heart catheterization. 2. Select bc left and right coronary artery angiogram. 3. Selective RAM to LAD graft angiogram. 4. S elective saphenous vein graft to ramus intermedius angiogram. 5. Selective vein graft to rig ht coronary artery angiogram. INDICATION: Non-ST elevation myocardial infarction. HISTORY O F PRESENT ILLNESS: This is an 82-year-old male with history of coronary artery bypass surge ry twice who was admitted with chest pain, was found to have elevated troponin that went up to 13. Patient was referred for coronary angiogram, possible angioplasty and stenting. Ple ase refer to Dr. Scales's full cardiology consultation note for more details. TECHNIQUE: The patient was brought to the cardiac catheterization laboratory in a fasting nonsedated s cartwright. After informed obtained, the patient was prepped and draped in the usual sterile fash ion. Timeout for patient safety was performed. One percent lidocaine was used for local an esthesia of the right groin. The right femoral artery was accessed using a micropuncture ne edle. There was a lot of scar in the femoral artery. We used a stiff wire and were able to advance the 6-Paraguayan sheath. A 5-Paraguayan FL4 catheter was advanced; however, unable to enga ge the left coronary system. There is tortuosity in the aorta, including the aortic arch. Then I tried an FL5 catheter and again I was not able to engage. At this point I used a long sheath and a 65 cm Destination sheath was advanced over the guidewire all the way to the ao rtic arch. Then I tried a 5-Paraguayan AL1 catheter after again trying the FL5 catheter without success. Multiple angiographic views of the left coronary system were obtained. Then using the 5-Paraguayan AL1 catheter, I engaged the vein graft to the right coronary artery, which is o ccluded and engaged another vein graft which was also occluded that appeared to be going to the right coronary artery. Subsequently the AL1 catheter was used for selective engagement o f the vein graft to the ramus intermedius and multiple angiographic views were obtained. Th e graft is a large graft with an organized large amount of thrombus in the long segment in t he distal third with some fresh blood clots extending into the [place] ramus. Subsequently a 5-Paraguayan FR4 catheter was advanced over the guidewire into the left ventricle. Left ventric ular pressures and pullback pressures were obtained. The 5-Paraguayan FR4 catheter was used for selective engagement of the right coronary artery and angiographic views were obtained. Th e 5-Paraguayan FR4 catheter was used for selective engagement of the left subclavian artery. Ex change length wire was advanced into the left subclavian artery and a 5-Paraguayan RAM catheter was used for selective engagement of the RAM to LAD graft and multiple angiographic views were obtained. Given the large thrombus burden in all the vein grafts, I felt that PCI at t his point would carry a high risk of occlusion of the [place] vein graft with distal emboliza tion and high risk of no-reflow phenomenon, I decided to stop here and treat him medically w ith Integrilin and heparin. Subsequently the long sheath was exchanged for a short 6-Paraguayan 11 cm sheath. Left femoral artery angiogram was obtained. Subsequently Mynx closure of the left common femoral artery was done successfully. The patient tolerated the procedure well without complications. TOTAL CONTRAST: 95 mL of Isovue. ESTIMATED BLOOD LOSS: Less than 10 cc. RESULTS: Hemodynamics: 1. Left ventricular systolic pressure 171 with left ventricular end-diastolic pressure of 15. 2. Aortic pressure is 168/67. 3. There was no significant gra dient across the aortic valve on pullback. CORONARY ANATOMY: 1. Left main coronary artery tr ifurcates and gives rise to the left anterior descending, ramus intermedius, and left circum flex artery. The left main coronary artery has mild disease in the range of 20 percent. 2. Left anterior descending artery had severe 75 percent diffuse disease proximally. Before th e first diagonal there is another 70 percent disease after the first diagonal. The first di agonal itself had 70 percent proximally and 80 percent in the mid portion. There is competi tive flow seen toward the RAM. Also there is filling of the RAM from the LAD visualized. 3. Ramus intermedius is not visualized, likely totally occluded at the ostium. 4. Left circu mflex artery is a small vessel that gives rise to small marginal branches with a 90 percent ostial lesion. 5. Right coronary artery is totally occluded proximally with left to right co llaterals visualized to the posterolateral and posterior descending artery as well as right bridging collaterals to the mid right coronary artery. GRAFT ANATOMY: 1. RAM to LAD is wide ly patent. It fills the LAD antegradely. The LAD after the RAM anastomosis is without obs tructive disease. Also the RAM graft fills the LAD retrogradely, filling the diagonal and the left circumflex artery and left main. There are collaterals seen again from the left an terior descending artery going to the right coronary artery. No collaterals are seen to the ramus. 2. Saphenous vein graft to the ramus intermedius is a large graft, probably 4.5 to 5 mm in diameter. There is a long segment distally that has a large amount of clots. Part of it is likely organized and part of it is fresh. There is severe narrowing because of the t hrombosis, probably 90 percent, and distally at the anastomotic site in the range of 99 perc ent. The [place] ramus intermedius is about a 2 to 2.5 mm vessel with fresh thrombus extendi ng just after the anastomotic site. There is TIMI3 flow, however, in this graft. 3. Two vei n grafts, likely to the right coronary artery, were occluded. 1. Severe 3-vessel [place] coronary artery disease with occluded right coronary artery with left to right collaterals, occluded ramus intermedius at the ostium, severe disease of the l eft anterior descending artery, and a small left circumflex artery. 2. Patent RAM to LAD gr aft. 3. Severe stenosis of the distal 3rd of a large saphenous graft to ramus intermedius wi th high clot burden and extension of thrombus into the [place] ramus intermedius. 4. Occluded other vein grafts. PLAN: Given the high thrombus burden in a very large graft, old graft, PCI would carry a high risk of vessel closure, distal embolization, no-reflow phenomenon. E robert AngioJet with mechanical thrombectomy would not be enough to treat this large thrombus linnea moncada. The best option at this point would be medical therapy. I would start him on Integr ilin drip, continue heparin drip, antiplatelets. Will consider bringing the patient back if the patient had recurrent chest pain. He is currently chest pain free and hemodynamically stable. Read by CHASITY WARREN MD 04/10/2018 12:34 P Echo Cardiac Adult Complete Result Date: 04/08/2018 Patient Name: BAYRON ULLOA Date of : 1935 Performing Physici an: Ry Scales KIMBERLEY CATIONS CHF, CHEST PAIN, HX CAD CONCLUSIONS 1. This was a technicall y difficult study with suboptimal views. 2. Overall left ventricular systolic function is lo w-normal with, an EF between 50 - 55 %. 3. Wall motion abnormalities suggestive of CAD noted , posterior-lateral wall hypokinesis noted. FINDINGS -------- ECG rhythm: Sinus rhythm. ECG rhythm: SEE CLIPS 1,2. Study: A 2-dimensional transthoracic echocardiogram with m-mode, spec tral and color flow Doppler was perfomed. Study: This was a technically difficult study with suboptimal views. Left Ventricle: Overall left ventricular systolic function is low-normal with, an EF between 50 - 55 %. Left Ventricle: The left ventricle cavity size is normal. Lef t Ventricle: Left ventricular wall thickness is normal. Left Ventricle: Wall motion abnormal ities suggestive of CAD noted, posterior-lateral wall hypokinesis noted. Right Ventricle: Th e right ventricle is mildly enlarged measuring between 3.4 - 3.7 cm. Right Ventricle: The ri ght ventricular systolic function is at the low end of normal. Left Atrium: The left atrial size is normal. Right Atrium: The right atrium is normal in size. Aortic Valve: The aortic v alve is trileaflet. Aortic Valve: The aortic valve is mildly calcified. Aortic Valve: Trace amount of aortic regurgitation. Aortic Valve: There is no evidence of aortic stenosis. Mitr al Valve: The mitral valve is normal. Mitral Valve: Mild mitral regurgitation is present. Tr icuspid Valve: The tricuspid valve appears structurally normal. Tricuspid Valve: Mild tricus pid regurgitation present. Tricuspid Valve: Right ventricular systolic pressure (pulmonary a rtery systolic pressure) is normal at < 35 mmHg. Pulmonic Valve: Moderate pulmonic regurgita tion. Pericardium: There is no pericardial effusion. IVC/Hepatic Veins: The IVC is normal si ze (1.5-2.5cm) and collapses >50% with sniff, consistent with central venous pressures of 5- 10mmHg. MEASUREMENTS RA Area: 16.46 cm2 Ao asc: 2.31 cm Ao Diam: 2.27 cm Ao sinus: 3.[address] junct: 2.40 cm LA Major: 4.47 cm EDV(Teich): 101.37 ml IVSd : 1.11 cm LVIDd: 4.68 cm LVPWd: 0.94 cm %FS: 26.68 % EF(Teich): 52.15 % ESV(Teich) : 48.50 ml IVSs: 1.42 cm LVIDs: 3.43 cm LVPWs: 1.42 cm SV(Teich): 52.87 ml RA Monica r: 4.57 cm RVIDd: 3.67 cm LAESV(A-L): 31.77 ml LAESV Index (A-L): 15.96 ml/m2 LAAs A 2C: 12.09 cm2 LAESV A-L A2C: 28.17 ml LALs A2C: 4.41 cm LAAs A4C: 13.64 cm2 LAESV A- L A4C: 34.73 ml LALs A4C: 4.54 cm Ao Diam: 3.29 cm AV Cusp: 1.81 cm LA Diam: 4.20 cm LA/Ao: 1.27 TAPSE: 1.43 cm IVC diameter: 1.82 cm IVC collapse: 0.89 cm IVC % rubina apse: 49.33 % HR: 61.92 BPM AV maxP.01 mmHg AV meanP.66 mmHg AV Vmax: 1.41 m/s AV Vmean: 1.04 m/s AV VTI: 31.77 cm HR: 59.58 BPM LVOT maxP.24 mmHg LVOT me anP.65 mmHg LVOT Vmax: 0.90 m/s LVOT Vmean: 0.60 m/s LVOT VTI: 18.51 cm MCO: 6 78.20 ms MV A Jason: 0.96 m/s MV DecT: 104.89 ms MV E Jason: 0.79 m/s MV E/A Ratio: 0.82 MV PHT: 32.61 ms MVA By PHT: 6.74 cm2 MV A Dur: 128.02 ms Septal e': 0.05 m/s Septa l E/e': 14.91 Lateral e': 0.10 m/s Lateral E/e': 7.70 P Vein D: 0.45 m/s P Vein S/D Ratio: 0.96 P Vein S: 0.43 m/s PAEDP: 14.16 mmHg PRend P.16 mmHg PRend Vmax: 1 .51 m/s HR: 57.8 BPM PV maxP.03 mmHg PV meanP.56 mmHg PV Vmax: 0.50 m/s PV V mean: 0.35 m/s PV VTI: 12.26 cm RAP: 5 mmHg RV S': 0.08 m/s RVSP: 32.40 mmHg TR ma xP.40 mmHg TR Vmax: 2.61 m/s TV A Jason: 0.32 m/s TV Dec Sevier: 3.84 m/s2 TV Dec Time: 131.55 ms TV E Jason: 0.50 m/s TV E/A Ratio: 1.55 Project Estimator: XAVIER Authenticated b y: Ry Scales Report Date/Time: 04-08-2018 10:14:18 1. This was a technically difficult study with suboptimal views. 2. Overall left ventricula r systolic function is low-normal with, an EF between 50 - 55 %. 3. Wall motion abnormalitie s suggestive of CAD noted, posterior-lateral wall hypokinesis noted. Discharge Vitals: Vitals: 04/12/18 1923 04/12/18 2328 04/13/18 0318 04/13/18 0719 BP: 123/58 124/66 128/77 133/66 BP Location: Right upper arm Right upper arm Left upper arm Right upper arm Pulse: 59 55 73 79 Resp: 20 20 20 20 Temp: 98 F (36.7 C) 97.8 F (36.6 C) 98 F (36.7 C) 98.3 F (36.8 C) TempSrc: Oral Oral Oral Oral SpO2: 97% 97% 95% 97% Weight: 79.2 kg (174 lb 9.7 oz) Height: Discharge Exam: Physical Exam Constitutional: He is oriented to person, place, and time. HENT: Head: Normocephalic. Mouth/Throat: Oropharynx is clear and moist. No oropharyngeal exudate. Eyes: Pupils are equal, round, and reactive to light. No scleral icterus. Neck: Normal range of motion. Cardiovascular: Normal rate. No murmur heard. Pulmonary/Chest: Effort normal and breath sounds normal. No stridor. No respiratory distres s. He has no wheezes. Abdomina/Gl: Soft. Bowel sounds are normal. He exhibits no distension. There is no tenderne ss. There is no guarding. Musculoskeletal: He exhibits no edema. Neurological: He is alert and oriented to person, place, and time. He displays normal refle xes. No cranial nerve deficit. Coordination normal. Skin: Skin is warm. Capillary refill takes less than 2 seconds. He is not diaphoretic. No p allor. LABS: Recent Labs Lab 04/13/18 0401 04/12/1842504/11/18 0418 WBC 7.09 7.62 8.72 HGB 12.7* 13.4 13.2 HCT 36.2* 39.1 38.2* PLT 158 157 157 NEUTOPHILPCT 70.75 72.29 74.32 MONOPCT 9.50 7.65 8.49 Recent Labs Lab 04/13/18 0914 04/13/18 04004/12/1842504/11/18 0418 NA -- 140 138 -- 142 K 3.5 3.5 3.9 < > 3.6 CL -- 103 101 -- 106 CO2 -- 30 28 -- 30 BUN -- 16 13 -- 13 CREATININE -- 1.0 1.0 -- 0.9 PROT -- 5.8* 6.3 -- 5.7* BILITOT -- 0.6 1.0 -- 0.8 ALT -- 83* 111* -- 59 AST -- 52* 123* -- 80* < > = values in this interval not displayed. Phosphorus: Recent Labs Lab 04/13/18 0401 PHOS 3.8 Recent Labs Lab 04/13/18 0401 04/12/18 0426 04/11/18 0418 MG 2.3 2.1 2.2 Recent Labs Lab 04/10/18 1119 04/10/18 0416 04/09/18 2134 04/08/18 0041 APTT 32 59* 40* < > 87* INR -- -- -- -- 1.0 < > = values in this interval not displayed. Recent Labs Lab 04/08/18 0231 TSH 0.725 Recent Labs Lab 04/08/18 0231 04/07/18 2232 TROPONINI 13.7* 2.36* Disposition: Home under care of the family Follow up: Stanislaw Harper MD [address] [place] [address] Schedule an appointment as soon as possible for a visit in 1 week For hospitalization re-evaluation ; Andrade Hobbs MD [address] [place] [id number] Schedule an appointment as soon as possible for a visit in 1 week For hospitalization re-evaluation ; Medication List START taking these medications aluminum-magnesium hydroxide-simethicone 200-200-20 MG/5ML Susp QTY: 355 mL Refills: 1 Commonly known as: MAALOX Take 30 mLs by mouth every 6 (six) hours as needed (GERD / reflux). calcium carbonate 500 MG chewable tablet QTY: 90 tablet Refills: 3 Commonly known as: TUMS Take 2 tablets by mouth every 6 (six) hours as needed for Heartburn. nicotine 21 MG/24HR QTY: 28 patch Refills: 0 Commonly known as: NICODERM CQ Place 1 patch onto the skin daily for 30 days. nitroGLYCERIN 0.4 MG SL tablet QTY: 60 tablet Refills: 11 Commonly known as: NITROSTAT Place 1 tablet under the tongue every 5 (five) minutes as needed for Chest pain. pantoprazole 40 MG tablet QTY: 60 tablet Refills: 3 Commonly known as: PROTONIX Take 1 tablet by mouth 2 (two) times daily before meals for 60 days. polyethylene glycol packet QTY: 14 each Refills: 2 Commonly known as: GLYCOLAX Take 17 g by mouth daily as needed for up to 3 days. potassium chloride SA 20 MEQ tablet QTY: 30 tablet Refills: 0 Commonly known as: K-DUR,KLOR-CON Take 1 tablet by mouth daily. CHANGE how you take these medications isosorbide mononitrate 60 MG 24 hr tablet QTY: 30 tablet Refills: 11 Commonly known as: IMDUR Take 1 tablet by mouth daily. What changed: medication strength how much to take how to take this when to take this metoprolol 50 MG 24 hr tablet QTY: 30 tablet Refills: 11 Commonly known as: TOPROL-XL Take 1 tablet by mouth daily. What changed: medication strength how much to take predniSONE 5 MG tablet QTY: 60 tablet Refills: 2 Commonly known as: DELTASONE Take 1-2 tablets daily with breakfast What changed: how much to take how to take this when to take this additional instructions CONTINUE taking these medications aspirin 81 MG tablet Refills: 0 clopidogrel 75 MG tablet Refills: 0 Commonly known as: PLAVIX HYDROcodone-acetaminophen 5-325 MG per tablet Refills: 0 Commonly known as: NORCO lisinopril 2.5 MG tablet Refills: 0 Commonly known as: ZESTRIL sulfaSALAzine 500 MG tablet QTY: 60 tablet Refills: 2 Commonly known as: AZULFIDINE Take 1 tablet by mouth 2 (two) times daily. Vitamin D3 3000 units Tabs Refills: 0 You might also be taking other medications not listed above. If you have questions about an y of your other medications, talk to the person who prescribed them or your Primary Care Pro vider. Where to Get Your Medications These medications were sent to [id number] [facility] [place] [address] [facility] [address] [facility] [id number] aluminum-magnesium hydroxide-simethicone 200-200-20 MG/5ML Susp calcium carbonate 500 MG chewable tablet isosorbide mononitrate 60 MG 24 hr tablet metoprolol 50 MG 24 hr tablet nicotine 21 MG/24HR nitroGLYCERIN 0.4 MG SL tablet pantoprazole 40 MG tablet polyethylene glycol packet potassium chloride SA 20 MEQ tablet John Herring MD 04/13/2018 10:39 AM Discharge took more than 35 minutes, to include final examination, discussion of admission, and preparation of prescriptions, instructions for ongoing care, follow up and dictation of summary. documented in thi s encounter Medications at Time of Discharge + + + +---------+ + + | Medication | Sig | Dispensed | Refills | Start | End Date | | | | | | Date | | + + + +---------+ + + | aspirin 81 MG | Take 81 mg by mouth | | 0 | 03/25/20 | | | tablet | daily. | | | 16 | 0 | + + + +---------+ + + | | Take 1 tablet by | | 0 | 04/07/20 | | | HYDROcodone-acetamin | mouth 2 (two) times | | | 18 | 9 | | ophen (NORCO) 5-325 | daily as needed for | | | | | | mg per tablet | Pain. | | | | | + + + +---------+ + + | predniSONE | Take 1-2 tablets | 60 | 2 | 03/31/20 | | | (DELTASONE) 5 mg | daily with breakfast | tablet | | 18 | 9 | | tablet | | | | | | + + + +---------+ + + documented as of this encounter Progress Notes Ry Scales MD - 04/13/2018 12:52 PM PDTFormatting of this note might be differen t from the original. Progress Notes by Ry Scales MD at 04/13/18 1252 Author: Ry Scales MD Service: Cardiology Author Type: Physician Filed: 04/13/18 125 Date of Service: 04/13/181251 Status: Signed Clearing Supervisor: Ry Scales MD (Physician) [facility]: Cardiology Progress Note Hospital Day: LOS: 6 days Post-Op Day: * No surgery found * SUBJECTIVE Patient Summary: Patient seen by the bedside no new complaints. No overnight events, n o chest pain currently. No further drop in H/H overnight and no events of GI bleeding. Scheduled Medications aspirin 162 mg Oral Daily with breakfast clopidogrel 75 mg Oral Daily isosorbide mononitrate 60 mg Oral Daily lisinopril 2.5 mg Oral Daily metoprolol 50 mg Oral Daily nicotine 1 patch Transdermal Daily pantoprazole 40 mg Intravenous BID AC predniSONE 10 mg Oral Daily with breakfast sulfaSALAzine 500 mg Oral BID Continuous Infusions sodium chloride (IV) 30 mL/hr at 04/09/18 1756 PRN Medications acetaminophen OR acetaminophen, aluminum-magnesium hydroxide-simethicone, calcium carbo keisha, guaiFENesin, hydrALAZINE, HYDROcodone-acetaminophen, LORazepam OR LORazepam, magne sium sulfate OR magnesium sulfate OR magnesium sulfate, nitroGLYCERIN, ondansetron * *OR ondansetron, polyethylene glycol, potassium OR potassium OR potassium OR p otassium chloride OR potassium chloride OR potassium chloride, zolpidem OBJECTIVE Vital Signs: BP 133/66 (BP Location: Right upper arm) | Pulse 79 | Temp 98.3 F (36.8 C) (Oral) | Resp 20 | Ht 1.778 m (5' 10") | Wt 79.2 kg (174 lb 9.7 oz) | SpO2 97% | BMI 25.05 kg/m Constitutional: Well-developed. Neck: No JVD present. No thyromegaly present. Cardiovascular: Regular rhythm, S1 normal and S2 normal. +ve systolic murmur heard. Pulses:+2 B/L Pulmonary/Chest: Effort normal and breath sounds normal. No wheezes. No rales. Abdominal: Soft. No tenderness. Musculoskeletal: No edema. Neurological: Alert. No cranial nerve deficit. Skin: Warm and dry. Access site no complications, good pulses, no bleeding, discharge DATA CBC: Lab Results Component Value Date WBC 7.09 04/13/2018 RBC 4.07 (L) 04/13/2018 HGB 12.7 (L) 04/13/2018 HCT 36.2 (L) 04/13/2018 MCV 88.9 04/13/2018 MCH 31.3 04/13/2018 MCHC 35.2 04/13/2018 RDW 44.6 04/13/2018 PLT 158 04/13/2018 MPV 8.4 04/13/2018 DIFFTYPE AUTOMATED 04/13/2018 BMP: Lab Results Component Value Date NA 140 04/13/2018 K 3.5 04/13/2018 CL 103 04/13/2018 CO2 30 04/13/2018 ANIONGAP 11 04/13/2018 GLUF 119 (H) 04/13/2018 BUN 16 04/13/2018 CREATININE 1.0 04/13/2018 BCR 16 04/13/2018 CA 9.2 04/13/2018 EGFR >60 04/13/2018 PT/INR: Lab Results Component Value Date INR 1.0 04/08/2018 PROBLEM LIST Principal Problem: NSTEMI (non-ST elevated myocardial infarction) ([facility]) Active Problems: Rheumatoid arthritis of multiple sites with negative rheumatoid factor (HCC) History of acute myocardial infarction Hypertension CAD (coronary artery disease) Fatigue GI (gastrointestinal bleed) Tobacco use disorder ASSESSMENT & PLAN NSTEMI- with large thrombus in SVG to ramus- Given large thrombus burden in large, old marvel graft to much smaller Ramus with extension of thrombus to [place] ramus, PCI carry high risk of failure, vessel occlusion and no reflow phenomenon- interventional cardiology recommendi ng medical management only- currently chest pain free Patent RAM to LAD Non sustained VT Melena with drop in H/H- no further drop in H/H Hx of CABGX5 in 1998, last cath 2009 showed patent RAM to LAD, SVG to Ramus, known occlude d SVG X2 to RCA and SVG to D1 Preserved LV systolic function with posterior lateral wall hypokinesis Marked first degree AVB HTN HLD Rheumatoid arthritis Continue ASA, Plavix, Lisinopril, Metoprolol. Titrate BP medication for better BP control On Protonix, GI on board- endoscopic work up if any further events of bleeding Supportive care. Monitor electrolytes, cr, H/H, weights, I/Os Close monitoring for signs of respiratory distress. Dc planning home follow up with Dr. Hobbs on discharge in [place] on discharge. Code Status: Full Code Ry Sclaes MD 04/13/2018 onversion Pierre saction, Provider Unknown - 04/13/2018 11:08 AM PDTFormatting of this note might be differen t from the original. Nurse Progress Note by Say De Los Santos RN at 04/13/181107 Author: Say De Los Santos RN Service: (none) Author Type: Registered Nurse Filed: 04/13/18 1315 Date of Service: 04/13/181107 Status: Signed Clearing Supervisor: Say De Los Santos RN (Registered Nurse) Patient stable for discharge per Dr Herring. Medications and AVS reviewed with patient, all belongings accounted for. All questions answered. Reviewed importance of daily wts, blood pr essure and heart rate checks and appropriate administration of SL ntg. oriRy parker MD - 04/12/2018 10:33 PM PDT Progress Notes by Ry Scales MD at 04/12/18 7264 Author: Ry Scales MD Service: Cardiology Author Type: Physician Filed: 04/12/18 6281 Date of Service: 04/12/182232 Status: Signed Clearing Supervisor: Ry Scales MD (Physician) [facility]: Cardiology Progress Note Hospital Day: LOS: 5 days Post-Op Day: * No surgery found * SUBJECTIVE Patient Summary: Patient seen by the bedside no new complaints. No overnight events, n o chest pain currently. No further drop in H/H overnight and no events of GI bleeding. Scheduled Medications [START ON 04/13/2018] aspirin 162 mg Oral Daily with breakfast clopidogrel 75 mg Oral Daily isosorbide mononitrate 60 mg Oral Daily lisinopril 2.5 mg Oral Daily metoprolol 50 mg Oral Daily nicotine 1 patch Transdermal Daily pantoprazole 40 mg Intravenous BID AC predniSONE 10 mg Oral Daily with breakfast sulfaSALAzine 500 mg Oral BID Continuous Infusions sodium chloride (IV) 30 mL/hr at 04/09/18 1756 PRN Medications acetaminophen OR acetaminophen, aluminum-magnesium hydroxide-simethicone, calcium carbo keisha, guaiFENesin, hydrALAZINE, HYDROcodone-acetaminophen, LORazepam OR LORazepam, magne sium sulfate OR magnesium sulfate OR magnesium sulfate, nitroGLYCERIN, ondansetron * *OR ondansetron, polyethylene glycol, potassium OR potassium OR potassium OR p otassium chloride OR potassium chloride OR potassium chloride, zolpidem OBJECTIVE Vital Signs: BP 123/58 (BP Location: Right upper arm) | Pulse 59 | Temp 98 F (36.7 C) (Oral) | Re sp 20 | Ht 1.778 m (5' 10") | Wt 79.4 kg (175 lb 0.7 oz) | SpO2 97% | BMI 25.12 kg/m Constitutional: Well-developed. Neck: No JVD present. No thyromegaly present. Cardiovascular: Regular rhythm, S1 normal and S2 normal. +ve systolic murmur heard. Pulses:+2 B/L Pulmonary/Chest: Effort normal and breath sounds normal. No wheezes. No rales. Abdominal: Soft. No tenderness. Musculoskeletal: No edema. Neurological: Alert. No cranial nerve deficit. Skin: Warm and dry. Access site no complications, good pulses, no bleeding, discharge DATA CBC: Lab Results Component Value Date WBC 7.62 04/12/2018 RBC 4.30 04/12/2018 HGB 13.4 04/12/2018 HCT 39.1 04/12/2018 MCV 90.8 04/12/2018 MCH 31.2 04/12/2018 MCHC 34.3 04/12/2018 RDW 43.8 04/12/2018 PLT 157 04/12/2018 MPV 8.8 04/12/2018 DIFFTYPE AUTOMATED 04/12/2018 BMP: Lab Results Component Value Date NA 138 04/12/2018 K 3.9 04/12/2018 CL 101 04/12/2018 CO2 28 04/12/2018 ANIONGAP 13 04/12/2018 GLUF 104 (H) 04/12/2018 BUN 13 04/12/2018 CREATININE 1.0 04/12/2018 BCR 13 04/12/2018 CA 9.8 04/12/2018 EGFR >60 04/12/2018 PT/INR: Lab Results Component Value Date INR 1.0 04/08/2018 PROBLEM LIST Principal Problem: NSTEMI (non-ST elevated myocardial infarction) (HCC) Active Problems: Rheumatoid arthritis of multiple sites with negative rheumatoid factor (HCC) History of acute myocardial infarction Hypertension CAD (coronary artery disease) Fatigue GI (gastrointestinal bleed) ASSESSMENT & PLAN NSTEMI- with large thrombus in SVG to ramus- Given large thrombus burden in large, old marvel graft to much smaller Ramus with extension of thrombus to [place] ramus, PCI carry high risk of failure, vessel occlusion and no reflow phenomenon- interventional cardiology recommendi ng medical management only- currently chest pain free Patent RAM to LAD Non sustained VT Melena with drop in H/H- no further drop in H/H Hx of CABGX5 in 1998, last cath 2009 showed patent RAM to LAD, SVG to Ramus, known occlude d SVG X2 to RCA and SVG to D1 Preserved LV systolic function with posterior lateral wall hypokinesis Marked first degree AVB HTN HLD Rheumatoid arthritis Continue ASA, Plavix (resumed today), Lisinopril, Metoprolol. Titrate BP medication for better BP control On Protonix, GI on board- endoscopic work up if any further events of bleeding Supportive care. Monitor electrolytes, cr, H/H, weights, I/Os Close monitoring for signs of respiratory distress. Dc planning home follow up with Dr. Hobbs on discharge in [place] on discharge. Code Status: Full Code Ry Scales MD 04/12/2018 indy Fuentes MD - 04/12/2018 9:00 AM PDTFormatting of this note might be different from the darleen pruett. Progress Notes by John Herring MD at 04/12/18899 Author: John Herring MD Service: Hospitalist Author Type: Physician Filed: 04/12/181953 Date of Service: 04/12/18899 Status: Signed Clearing Supervisor: John Herring MD (Physician) Related Notes: Original Note by John Herring MD (Physician) filed at 04/12/18 1234 [facility]: Hospitalist Progress Note Pt: Bayron Ulloa AGE/SEX: 82 y.o. male : 1935 ROOM: [address] [place] [address] " Chief complaint: chest pain History of present illness: came to ED at [facility] in [place], [place] today mckay use of sudden onset chest pain at 5 PM today. He was eating dinner in his home with spouse a nd had just finished the meal and developed uncomfortable burning sensation in [place]. It radiated into both arms. There was no associated dyspnea, nausea, or sweats. 911 was called and EMS gave him nitro x3, which did not affect the symptoms. He further got nitro pa missael in ED and also heartburn medication. His symptoms improved at that point. Now the sympto ms are gone. ED noted the patient's cardiac history and requested transfer to [facility] for further workup. The patient has had multiple UT's in the past and had 2 CABG's, as well. He used to follow with Dr Jenkins, who has now retired. He hasn't established care with a new compliance field technician vicky borrego "everything's been going well." He last had heart cath in 2009 for, as the patient describ es, cardiac clearance to get cholecystectomy. I have included some of the cath report here: Exam Date/Time: 10/03/2009 11:30 A Ordering Provider: SWAPNA CARRERA Order Detail: 5410 / / HCL Exam Description: CCL HEART CATH LT RETRO PERC ... INDICATIONS The patient is a very pleasant 73-year-old gentleman with past medical history of coronary artery disease status post a previous coronary artery bypass graft surgery who had a new onset of atrial flutter and fibrillation. He was suspected of having progression of his coronary artery disease and since he cannot undergo a stress test in view of joint problems involving his upper extremities, cardiac catheterization was advised to assess the status of his coronary arteries as well as his bypass grafts. ... CORONARY ANGIOGRAPHY 1. Left main had a mid 40% plaque. 2. The LAD had mild diffuse calcification with mild diffuse disease. The mid segment of the LAD had a discrete 70% stenosis. The first diagonal branch was a small-caliber vessel with a mid 90% stenosis. 3. The ramus intermedius was totally occluded at its ostium. 4. The left circumflex was a very small-caliber vessel with an ostial 99% stenosis. 5. The right coronary artery was totally occluded at its ostium. The mid segment of the RCA was filling via bridging collaterals. 6. The very distal portion of the RCA was filling via collaterals from the distal LAD, visualized upon injection of the RAM graft as well as the [place] artery. 7. Two saphenous vein grafts to the RCA appeared to be totally occluded. 8. The saphenous vein graft to the diagonal or an obtuse marginal branch was totally occluded. 9. Saphenous vein graft to the ramus intermedius was patent without any significantly obstructive stenosis in the ramus intermedius. 10. The RAM to the LAD was patent. The LAD beyond the RAM anastomosis did not have any significantly obstructive stenosis. LEFT VENTRICULOGRAM Left ventriculogram revealed a low normal left ventricular systolic function with ejection fraction of 50% with posterobasal hypokinesis. CONCLUSION 1. Coronary artery and graft disease as discussed above. 2. Low normal left ventricular systolic function, ejection fraction of 50%, with posterobasal hypokinesis. 3. Mildly elevated left ventricular end-diastolic pressure. RECOMMENDATIONS 1. Medical therapy. 2. Aggressive risk factor modification."..............per admission HP by Dr. Lake on 04/07 TODAY'S DATE: 04/12/2018 Hospital Day: LOS: 5 days SUBJECTIVE: 04/08/18: Patient had no episodes of chest pain ever since 7 p.m. last night. Hemodynamica lly stable. His troponins increased to 13.7. Cardiology was consulted by Dr. Jaya sheets. Today, patient is proceeding to planned cardiac catheterization by Dr. Warren. Family a nd patient at the bedside. All questions answered to their satisfaction. 04/09/18: Denies any chest pain. Currently on isosorbide mononitrate but also on heparin an d Integrilin infusion to limit the clot burden, as recommended by cardiology. Patient in re latively good spirits but concerned about the overall prognosis. Cardiologists Dr. Guilherme parks nd Dr. Scales are discussing at this point any risks of additional interventions. Dr. Gentry traylor or Dr. Scales will further discuss these issues and the risks with the patient and the family today. 04/10/18: Pt c/o "bloody looking" stools. Will for now stop heparin gtt and intergrilin gtt ; continue ASA and will add plavix should no more bleeding occur in the next 24 hrs. Will further d/w compliance field technician. Stool to be tested for heme occult ( first samples were discarded by the pt ). 04/11/18: No chest pain. He had 1 bowel movement today which was formed and brown without m selwyn or hematochezia. H and H remain stable. Appreciate Dr. Scales's and Dr. Trice Tse's input and recommendations. For now we will continue with aspirin and hig h-dose PPI therapy. We will consider to start Plavix tomorrow if patient will not have any more episodes of bleeding. Subsequently, we will monitor him for another 24-48 hours before discharge home can be considered in view of patient's quite complicated clinical status. B oth patient and the family were updated at bedside. Plan of care explained. 04/12/18: Mr. Ulloa is doing quite well. No chest pain, no shortness of breath. He had no further episodes of hematochezia or melena. His H and H is staying stable. Today, we are s tarting patient on Plavix and continuing aspirin and will monitor for any occurrence of marleny rointestinal bleed. We are also going to advance patient's diet to a cardiac from previousl y used full liquids. Review of Systems: Review of Systems Constitutional: Negative for fever, malaise/fatigue and weight loss. HENT: Negative for hearing loss. Eyes: Negative for blurred vision, double vision, photophobia and redness. Respiratory: Negative for cough, hemoptysis and sputum production. Cardiovascular: Positive for chest pain (resolved ). Negative for palpitations, claudicatio n, leg swelling and PND. Gastrointestinal: Negative for abdominal pain, blood in stool, heartburn, melena, nausea an d vomiting. Genitourinary: Negative for dysuria, flank pain, frequency and urgency. Musculoskeletal: Negative for myalgias and neck pain. Neurological: Negative for dizziness, tingling, speech change, focal weakness, seizures, lo ss of consciousness and headaches. Endo/Heme/Allergies: Negative for polydipsia. Psychiatric/Behavioral: Negative for depression and suicidal ideas. Scheduled Medications aspirin 325 mg Oral Daily with breakfast isosorbide mononitrate 60 mg Oral Daily lisinopril 2.5 mg Oral Daily metoprolol 50 mg Oral Daily nicotine 1 patch Transdermal Daily pantoprazole 40 mg Intravenous BID AC predniSONE 10 mg Oral Daily with breakfast sulfaSALAzine 500 mg Oral BID Continuous Infusions sodium chloride (IV) 30 mL/hr at 04/09/18 1756 PRN Medications acetaminophen OR acetaminophen, aluminum-magnesium hydroxide-simethicone, calcium carbo keisha, guaiFENesin, hydrALAZINE, HYDROcodone-acetaminophen, LORazepam OR LORazepam, magne sium sulfate OR magnesium sulfate OR magnesium sulfate, nitroGLYCERIN, ondansetron * *OR ondansetron, polyethylene glycol, potassium OR potassium OR potassium OR p otassium chloride OR potassium chloride OR potassium chloride, zolpidem Allergy: Allergies Allergen Reactions Adhesive Tape Other (See Comments) Adhesives in tape. Skin very fragile. Pravastatin Other (See Comments) Myalgias, myositis OBJECTIVE Vitals: Patient Vitals for the past 24 hrs: BP Temp Temp src Pulse Resp SpO2 Weight 04/12/18 0750 139/64 97 F (36.1 C) Oral 75 19 97 % - 04/12/18 0327 119/55 97.5 F (36.4 C) Oral 64 22 98 % 79.4 kg (175 lb 0.7 oz) 04/11/18 2256 132/71 98.4 F (36.9 C) Oral - 18 98 % - 04/11/18 1923 156/68 98.6 F (37 C) Oral - 20 99 % - 04/11/18 1547 125/67 97.3 F (36.3 C) Oral 58 18 99 % - 04/11/18 1105 115/58 97.9 F (36.6 C) Oral 57 19 99 % - I&O Detailed Table: Intake/Output Summary (Last 24 hours) at 04/12/18 0900 Last data filed at 04/12/18 0750 Gross per 24 hour Intake 600 ml Output 1500 ml Net -900 ml Patient Vitals for the past 96 hrs: Weight 04/12/18 0327 79.4 kg (175 lb 0.7 oz) 04/11/18 0323 79.2 kg (174 lb 9.7 oz) 04/10/18 0338 79 kg (174 lb 2.6 oz) 04/09/18 0528 78.6 kg (173 lb 4.5 oz) Hemodynamics Last 24hrs: Examination: Physical Exam Constitutional: He is oriented to person, place, and time. No distress. HENT: Head: Normocephalic. Mouth/Throat: Oropharynx is clear and moist. Eyes: Pupils are equal, round, and reactive to light. No scleral icterus. Neck: Normal range of motion. Cardiovascular: Normal rate. Murmur heard. Pulmonary/Chest: Effort normal and breath sounds normal. No stridor. No respiratory distres s. He has no wheezes. Abdomina/Gl: Soft. Bowel sounds are normal. He exhibits no distension. There is no guarding . Musculoskeletal: Normal range of motion. He exhibits no edema. Neurological: He is alert and oriented to person, place, and time. He displays normal refle xes. No cranial nerve deficit. Coordination normal. Skin: Skin is warm and dry. Capillary refill takes less than 2 seconds. No rash noted. He i s not diaphoretic. Psychiatric: He has a normal mood and affect. LABS: Recent Labs Lab 04/12/18 0426 04/11/18 0418 04/10/18 2115 04/10/18 0416 04/09/18 0245 WBC 7.62 8.72 -- -- 9.03 9.37 HGB 13.4 13.2 13.0* < > 12.3* 14.2 HCT 39.1 38.2* 38.9* < > 35.8* 41.0 PLT 157 157 -- -- 152 167 NEUTOPHILPCT 72.29 74.32 -- -- -- 78.82 MONOPCT 7.65 8.49 -- -- -- 8.52 < > = values in this interval not displayed. Recent Labs Lab 04/12/18 0426 04/11/18 0918 04/11/18 0418 04/10/18 0416 NA 138 -- 142 142 K 3.9 4.0 3.6 3.7 CL 101 -- 106 105 CO2 28 -- 30 28 BUN 13 -- 13 20 CREATININE 1.0 -- 0.9 0.9 PROT 6.3 -- 5.7* 5.2* BILITOT 1.0 -- 0.8 0.6 ALT 111* -- 59 22 AST 123* -- 80* 38 Phospho Recent Labs Lab 04/10/18 1119 04/10/18 0416 04/09/18 2134 04/08/18 0041 APTT 32 59* 40* < > 87* INR -- -- -- -- 1.0 < > = values in this interval not displayed. Recent Labs Lab 04/08/18 0231 TSH 0.725 Recent Labs Lab 04/08/18 0231 04/07/18 2232 TROPONINI 13.7* 2.36* Diagnostic: X-ray Chest 1 View Result Date: 04/07/2018 This is a non-reportable procedure without a radiologist report and is used for image [facility] only Past Medical History Diagnosis Date Coronary artery disease Osteoarthritis Rheumatoid arthritis (HCC) Past Surgical History Procedure Laterality Date CARDIAC SURGERY CHOLECYSTECTOMY CORONARY ARTERY BYPASS GRAFT HAND SURGERY PROBLEM LIST Principal Problem: NSTEMI (non-ST elevated myocardial infarction) (HCC) Active Problems: Rheumatoid arthritis of multiple sites with negative rheumatoid factor (HCC) History of acute myocardial infarction Hypertension CAD (coronary artery disease) Fatigue GI (gastrointestinal bleed) ASSESSMENT & PLAN 82-year-old male with history of coronary artery disease, previous CABG, rheumatoid arthrit is on chronic anti-inflammatory therapy, hypertension, who presents with the followin. Non-ST elevation UT with diffuse coronary artery disease with previous CABG, including 1 redo surgery in the remote past. Continue optimal medical therapy at the present time, wit h addition of clopidogrel to aspirin today. The antiplatelet therapy has been temporarily p artially suspended due to GI bleeding. No further episodes of chest pain. Appears to be he modynamically stable. Should patient tolerate both aspirin and Plavix together over the nex t 24 hours without evidence of further bleeding, then perhaps he can be discharged home. Ad starr diet to cardiac today. Appreciate Dr. Scales's and Dr. Warren's and Dr. Tse's input and recommen dations. 2. Acute GI blood loss. No further episodes of melena or hematochezia. Hemoglobin and hem atocrit stable. Continue high-dose PPI. Appreciate Dr. Tse's input and recomme ndations. 3. Hypertension. Continue current medical therapy. Systolic blood pressures in the 119 to 139 mmHg range with heart rate of 64 to 75. 4. History of rheumatoid arthritis. Continue low-dose prednisone and sulfasalazine. Curre ntly symptoms are controlled. 5. Deconditioning. Continue to mobilize with therapeutic walk t.i.d. 6. DVT prophylaxis. SCDs and no subcutaneous heparin, secondary to risk of bleeding. DISPOSITION: Potential discharge home tomorrow, should the patient have no further episode s of GI blood loss. John Herring MD 04/12/2018 9:00 AM Giovani Arce MD - 04/11/2018 8:58 PM PDTFormatting of this note might be different from the origina l. Progress Notes by Ry Scales MD at 04/11/182057 Author: Ry Scales MD Service: Cardiology Author Type: Physician Filed: 04/11/182118 Date of Service: 04/11/182057 Status: Signed Clearing Supervisor: Ry Scales MD (Physician) [facility]: Cardiology Progress Note Hospital Day: LOS: 4 days Post-Op Day: * No surgery found * SUBJECTIVE Patient Summary: Patient seen by the bedside no new complaints. No overnight events, n o chest pain currently. No further drop in H/H overnight and no events of GI bleeding. Scheduled Medications aspirin 325 mg Oral Daily with breakfast famotidine 20 mg Oral BID isosorbide mononitrate 60 mg Oral Daily lisinopril 2.5 mg Oral Daily metoprolol 50 mg Oral Daily nicotine 1 patch Transdermal Daily pantoprazole 40 mg Intravenous BID AC predniSONE 10 mg Oral Daily with breakfast sulfaSALAzine 500 mg Oral BID Continuous Infusions sodium chloride (IV) 30 mL/hr at 04/09/18 1756 PRN Medications acetaminophen OR acetaminophen, aluminum-magnesium hydroxide-simethicone, calcium carbo keisha, guaiFENesin, hydrALAZINE, HYDROcodone-acetaminophen, LORazepam OR LORazepam, magne sium sulfate OR magnesium sulfate OR magnesium sulfate, nitroGLYCERIN, ondansetron * *OR ondansetron, polyethylene glycol, potassium OR potassium OR potassium OR p otassium chloride OR potassium chloride OR potassium chloride, zolpidem OBJECTIVE Vital Signs: BP 156/68 (BP Location: Left upper arm) | Pulse 58 | Temp 98.6 F (37 C) (Oral) | Res p 20 | Ht 1.778 m (5' 10") | Wt 79.2 kg (174 lb 9.7 oz) | SpO2 99% | BMI 25.05 kg/m Constitutional: Well-developed. Neck: No JVD present. No thyromegaly present. Cardiovascular: Regular rhythm, S1 normal and S2 normal. +ve systolic murmur heard. Pulses:+2 B/L Pulmonary/Chest: Effort normal and breath sounds normal. No wheezes. No rales. Abdominal: Soft. No tenderness. Musculoskeletal: No edema. Neurological: Alert. No cranial nerve deficit. Skin: Warm and dry. Access site no complications, good pulses, no bleeding, discharge DATA CBC: Lab Results Component Value Date WBC 8.72 04/11/2018 RBC 4.22 04/11/2018 HGB 13.2 04/11/2018 HCT 38.2 (L) 04/11/2018 MCV 90.5 04/11/2018 MCH 31.2 04/11/2018 MCHC 34.4 04/11/2018 RDW 45.5 04/11/2018 PLT 157 04/11/2018 MPV 8.8 04/11/2018 DIFFTYPE AUTOMATED 04/11/2018 BMP: Lab Results Component Value Date NA 142 04/11/2018 K 4.0 04/11/2018 CL 106 04/11/2018 CO2 30 04/11/2018 ANIONGAP 10 04/11/2018 GLUF 122 (H) 04/11/2018 BUN 13 04/11/2018 CREATININE 0.9 04/11/2018 BCR 14 04/11/2018 CA 9.4 04/11/2018 EGFR >60 04/11/2018 PT/INR: Lab Results Component Value Date INR 1.0 04/08/2018 PROBLEM LIST Principal Problem: NSTEMI (non-ST elevated myocardial infarction) (HCC) Active Problems: Rheumatoid arthritis of multiple sites with negative rheumatoid factor (HCC) History of acute myocardial infarction Hypertension CAD (coronary artery disease) Fatigue GI (gastrointestinal bleed) ASSESSMENT & PLAN NSTEMI- with large thrombus in SVG to ramus- Given large thrombus burden in large, old marvel graft to much smaller Ramus with extension of thrombus to [place] ramus, PCI carry high risk of failure, vessel occlusion and no reflow phenomenon- interventional cardiology recommendi ng medical management only- currently chest pain free Patent RAM to LAD Non sustained VT Melena with drop in H/H- no further drop in H/H Hx of CABGX5 in 1998, last cath 2009 showed patent RAM to LAD, SVG to Ramus, known occlude d SVG X2 to RCA and SVG to D1 Preserved LV systolic function with posterior lateral wall hypokinesis Marked first degree AVB HTN HLD Rheumatoid arthritis Off Brilinta Continue ASA, Lisinopril, Metoprolol. Titrate BP medication for better BP control On Protonix, GI on board- endoscopic work up if any further events of bleeding Supportive care. Monitor electrolytes, cr, H/H, weights, I/Os Close monitoring for signs of respiratory distress. Code Status: Full Code Ry Scales MD 04/11/2018 awlick, Mindy Shin MD - 04/11/2018 8:26 AM PDTFormatting of this note might be different from the darleen floyd Progress Notes by John Herring MD at 04/11/18825 Author: John Herring MD Service: Hospitalist Author Type: Physician Filed: 04/12/1855 Date of Service: 04/11/18825 Status: Signed Clearing Supervisor: John Herring MD (Physician) Related Notes: Original Note by John Herring MD (Physician) filed at 04/11/18 1720 [facility]: Hospitalist Progress Note Pt: Bayron Ulloa AGE/SEX: 82 y.o. male : 1935 ROOM: [address] [place] [address] " Chief complaint: chest pain History of present illness: came to ED at [facility] in [place], [place] today mckay use of sudden onset chest pain at 5 PM today. He was eating dinner in his home with spouse a nd had just finished the meal and developed uncomfortable burning sensation in L-central precious [address]. It radiated into both arms. There was no associated dyspnea, nausea, or sweats. 911 was called and EMS gave him nitro x3, which did not affect the symptoms. He further got nitro pa missael in ED and also heartburn medication. His symptoms improved at that point. Now the sympto ms are gone. ED noted the patient's cardiac history and requested transfer to [facility] for further workup. The patient has had multiple UT's in the past and had 2 CABG's, as well. He used to follow with Dr Jenkins, who has now retired. He hasn't established care with a new compliance field technician vicky borrego "everything's been going well." He last had heart cath in 2009 for, as the patient describ es, cardiac clearance to get cholecystectomy. I have included some of the cath report here: Exam Date/Time: 10/03/2009 11:30 A Ordering Provider: SWAPNA CARRERA Order Detail: 5410 / / HCL Exam Description: CCL HEART CATH LT RETRO PERC ... INDICATIONS The patient is a very pleasant 73-year-old gentleman with past medical history of coronary artery disease status post a previous coronary artery bypass graft surgery who had a new onset of atrial flutter and fibrillation. He was suspected of having progression of his coronary artery disease and since he cannot undergo a stress test in view of joint problems involving his upper extremities, cardiac catheterization was advised to assess the status of his coronary arteries as well as his bypass grafts. ... CORONARY ANGIOGRAPHY 1. Left main had a mid 40% plaque. 2. The LAD had mild diffuse calcification with mild diffuse disease. The mid segment of the LAD had a discrete 70% stenosis. The first diagonal branch was a small-caliber vessel with a mid 90% stenosis. 3. The ramus intermedius was totally occluded at its ostium. 4. The left circumflex was a very small-caliber vessel with an ostial 99% stenosis. 5. The right coronary artery was totally occluded at its ostium. The mid segment of the RCA was filling via bridging collaterals. 6. The very distal portion of the RCA was filling via collaterals from the distal LAD, visualized upon injection of the RAM graft as well as the [place] artery. 7. Two saphenous vein grafts to the RCA appeared to be totally occluded. 8. The saphenous vein graft to the diagonal or an obtuse marginal branch was totally occluded. 9. Saphenous vein graft to the ramus intermedius was patent without any significantly obstructive stenosis in the ramus intermedius. 10. The RAM to the LAD was patent. The LAD beyond the RAM anastomosis did not have any significantly obstructive stenosis. LEFT VENTRICULOGRAM Left ventriculogram revealed a low normal left ventricular systolic function with ejection fraction of 50% with posterobasal hypokinesis. CONCLUSION 1. Coronary artery and graft disease as discussed above. 2. Low normal left ventricular systolic function, ejection fraction of 50%, with posterobasal hypokinesis. 3. Mildly elevated left ventricular end-diastolic pressure. RECOMMENDATIONS 1. Medical therapy. 2. Aggressive risk factor modification."..............per admission HP by Dr. Lake on 04/07 TODAY'S DATE: 04/11/2018 Hospital Day: LOS: 4 days SUBJECTIVE: 04/08/18: Patient had no episodes of chest pain ever since 7 p.m. last night. Hemodynamica lly stable. His troponins increased to 13.7. Cardiology was consulted by Dr. Lake yesterd ay. Today, patient is proceeding to planned cardiac catheterization by Dr. aWrren. Family a nd patient at the bedside. All questions answered to their satisfaction. 04/09/18: Denies any chest pain. Currently on isosorbide mononitrate but also on heparin an d Integrilin infusion to limit the clot burden, as recommended by cardiology. Patient in re latively good spirits but concerned about the overall prognosis. Cardiologists Dr. Guilherme parks nd Dr. Scales are discussing at this point any risks of additional interventions. Dr. Gentry traylor or Dr. Scales will further discuss these issues and the risks with the patient and the family today. 04/10/18: Pt c/o "bloody looking" stools. Will for now stop heparin gtt and intergrilin gtt ; continue ASA and will add plavix should no more bleeding occur in the next 24 hrs. Will further d/w compliance field technician. Stool to be tested for heme occult ( first samples were discarded by the pt ). 04/11/18: No chest pain. He had 1 bowel movement today which was formed and brown without m selwyn or hematochezia. H and H remain stable. Appreciate Dr. Scales's and Dr. Trice Tse's input and recommendations. For now we will continue with aspirin and hig h-dose PPI therapy. We will consider to start Plavix tomorrow if patient will not have any more episodes of bleeding. Subsequently, we will monitor him for another 24-48 hours before discharge home can be considered in view of patient's quite complicated clinical status. B oth patient and the family were updated at bedside. Plan of care explained. Review of Systems: Review of Systems Constitutional: Negative for fever, malaise/fatigue and weight loss. HENT: Negative for hearing loss. Eyes: Negative for blurred vision, double vision, photophobia and redness. Respiratory: Negative for cough, hemoptysis and sputum production. Cardiovascular: Positive for chest pain (resolved ). Negative for palpitations, claudicatio n, leg swelling and PND. Gastrointestinal: Negative for abdominal pain, blood in stool, heartburn, melena, nausea an d vomiting. Genitourinary: Negative for dysuria, flank pain, frequency and urgency. Musculoskeletal: Negative for myalgias and neck pain. Neurological: Negative for dizziness, tingling, speech change, focal weakness, seizures, lo ss of consciousness and headaches. Endo/Heme/Allergies: Negative for polydipsia. Psychiatric/Behavioral: Negative for depression and suicidal ideas. Scheduled Medications aspirin 325 mg Oral Daily with breakfast famotidine 20 mg Oral BID isosorbide mononitrate 60 mg Oral Daily lisinopril 2.5 mg Oral Daily metoprolol 50 mg Oral Daily nicotine 1 patch Transdermal Daily pantoprazole 40 mg Intravenous BID AC predniSONE 10 mg Oral Daily with breakfast sulfaSALAzine 500 mg Oral BID Continuous Infusions sodium chloride (IV) 30 mL/hr at 04/09/18 1756 PRN Medications acetaminophen OR acetaminophen, aluminum-magnesium hydroxide-simethicone, calcium carbo keisha, guaiFENesin, hydrALAZINE, HYDROcodone-acetaminophen, LORazepam OR LORazepam, magne sium sulfate OR magnesium sulfate OR magnesium sulfate, nitroGLYCERIN, ondansetron * *OR ondansetron, polyethylene glycol, potassium OR potassium OR potassium OR p otassium chloride OR potassium chloride OR potassium chloride, zolpidem Allergy: Allergies Allergen Reactions Adhesive Tape Other (See Comments) Adhesives in tape. Skin very fragile. Pravastatin Other (See Comments) Myalgias, myositis OBJECTIVE Vitals: Patient Vitals for the past 24 hrs: BP Temp Temp src Pulse Resp SpO2 Weight 04/11/18 0805 142/68 - - 70 - - - 04/11/18 0323 123/65 98.7 F (37.1 C) Oral 75 20 96 % 79.2 kg (174 lb 9.7 oz) 04/10/18 2300 125/67 98.4 F (36.9 C) Oral 79 16 95 % - 04/10/18 1922 148/75 98 F (36.7 C) Oral 66 20 96 % - 04/10/18 1538 141/64 97.9 F (36.6 C) Oral 61 19 100 % - 04/10/18 1139 108/54 97.8 F (36.6 C) Oral 60 19 95 % - 04/10/18 0841 - - - 56 - - - I&O Detailed Table: Intake/Output Summary (Last 24 hours) at 04/11/18 0826 Last data filed at 04/11/18 0327 Gross per 24 hour Intake 700 ml Output 3700 ml Net -3000 ml Patient Vitals for the past 96 hrs: Weight 04/11/18 0323 79.2 kg (174 lb 9.7 oz) 04/10/18 0338 79 kg (174 lb 2.6 oz) 04/09/18 0528 78.6 kg (173 lb 4.5 oz) 04/07/18 2138 81.2 kg (179 lb) Hemodynamics Last 24hrs: Examination: Physical Exam Constitutional: He is oriented to person, place, and time. No distress. HENT: Head: Normocephalic. Mouth/Throat: Oropharynx is clear and moist. Eyes: Pupils are equal, round, and reactive to light. No scleral icterus. Neck: Normal range of motion. Cardiovascular: Normal rate. Murmur heard. Pulmonary/Chest: Effort normal and breath sounds normal. No stridor. No respiratory distres s. He has no wheezes. Abdomina/Gl: Soft. Bowel sounds are normal. He exhibits no distension. There is no guarding . Musculoskeletal: Normal range of motion. He exhibits no edema. Neurological: He is alert and oriented to person, place, and time. He displays normal refle xes. No cranial nerve deficit. Coordination normal. Skin: Skin is warm and dry. Capillary refill takes less than 2 seconds. No rash noted. He i s not diaphoretic. Psychiatric: He has a normal mood and affect. LABS: Recent Labs Lab 04/11/1841704/10/18 2115 04/10/18 1451 04/10/18 0416 04/09/18 0245 04/08/18 0231 WBC 8.72 -- -- 9.03 9.37 10.32 HGB 13.2 13.0* 13.5 12.3* 14.2 13.6 HCT 38.2* 38.9* 40.7 35.8* 41.0 39.8 PLT 157 -- -- 152 167 172 NEUTOPHILPCT 74.32 -- -- -- 78.82 77.55 MONOPCT 8.49 -- -- -- 8.52 6.83 Recent Labs Lab 04/11/18 0418 04/10/18 0416 04/09/18 1528 04/09/18 0245 NA 142 142 -- -- 141 K 3.6 3.7 3.9 < > 3.6 CL 106 105 -- -- 104 CO2 30 28 -- -- 27 BUN 13 20 -- -- 15 CREATININE 0.9 0.9 -- -- 0.9 PROT 5.7* 5.2* -- -- -- BILITOT 0.8 0.6 -- -- -- ALT 59 22 -- -- -- AST 80* 38 -- -- -- < > = values in this interval not displayed. Phospho Recent Labs Lab 04/10/18 1119 04/10/18 0416 04/09/18 2134 04/08/18 0041 APTT 32 59* 40* < > 87* INR -- -- -- -- 1.0 < > = values in this interval not displayed. Recent Labs Lab 04/08/18 0231 TSH 0.725 Recent Labs Lab 04/08/18 0231 04/07/18 2232 TROPONINI 13.7* 2.36* Diagnostic: X-ray Chest 1 View Result Date: 04/07/2018 This is a non-reportable procedure without a radiologist report and is used for image Hartman Wright only Past Medical History Diagnosis Date Coronary artery disease Osteoarthritis Rheumatoid arthritis (HCC) Past Surgical History Procedure Laterality Date CARDIAC SURGERY CHOLECYSTECTOMY CORONARY ARTERY BYPASS GRAFT HAND SURGERY PROBLEM LIST Principal Problem: NSTEMI (non-ST elevated myocardial infarction) (HCC) Active Problems: Rheumatoid arthritis of multiple sites with negative rheumatoid factor (HCC) History of acute myocardial infarction Hypertension CAD (coronary artery disease) Fatigue GI (gastrointestinal bleed) ASSESSMENT & PLAN 82-year-old male with history of coronary artery disease, previous CABG, rheumatoid arthrit is on chronic anti-inflammatory therapy, hypertension, who presents with the followin. Non-ST elevation UT with diffuse coronary artery disease with previous CABG including 1 redo surgery in the remote past. Continue optimal medical therapy as recommended by cardio logy. Patient's heparin and Integrilin infusion was discontinued yesterday as it was a temp orary measure in that reduction of clot burden noted in the coronaries during the coronary a ngiography. The end of infusion coincided with appearance of bloody stools which tested pos itive for occult blood. For now, continue on the aspirin. Plavix was initiated but then he ld and patient now currently is only aspirin. We will restart Plavix most likely tomorrow i f there is no further evidence of GI bleeding and H and H remain stable. Appreciate Dr. Bjorn pavon's, Dr. Warren's, and Dr. Tse's input and recommendation. We will recheck labs in the morning. 2. Acute GI blood loss. Continue lab checks daily. Discontinued heparin and Integrilin d rips yesterday morning. Continue high-dose PPI empirically. Appreciate Dr. Tse 's input and recommendations. For now, conservative measures therapy without any endoscopic evaluation at this time secondary to #1. 3. Hypertension. Continue to optimize medical therapy. Currently tolerating metoprolol X L 50 mg by mouth daily and lisinopril 2.5 mg by mouth daily and isosorbide mononitrate 60 mg daily. 4. History of rheumatoid arthritis. Continue low-dose prednisone and sulfasalazine. 5. Deconditioning. Start mobilizing/therapeutic walk three times daily. 6. DVT prophylaxis. SCDs; no heparin secondary to risk of bleeding. John Herring MD 04/11/2018 8:26 AM onversion Transa ction, Provider Unknown - 04/10/2018 3:01 PM PDT Case Management by Carina Armas RN at 04/10/18 1501 Author: Carina Armas RN Service: (none) Author Type: Registered Nurse Filed: 04/10/18 1502 Date of Service: 04/10/18 1501 Status: Addendum Clearing Supervisor: Carina Armas RN (Registered Nurse) Related Notes: Original Note by Carina Armas RN (Registered Nurse) filed at 04/10/18 150 2 Per primary RN and Dr Herring, holding off anticoagulation at this time due to bloody stools Per Dr Warren's note, pt may d/c on Brilinta. Will conitnue to monitor, pt will not d/c ov er wknd Tash onver bridget Transaction, Provider Unknown - 04/10/2018 9:38 AM PDT Nurse Progress Note by Cary Gardiner RN at 04/10/18937 Author: Cary Gardiner RN Service: (none) Author Type: Registered Nurse Filed: 04/10/18940 Date of Service: 04/10/18937 Status: Signed Clearing Supervisor: Cary Gardiner RN (Registered Nurse) Pt reports that he started having bloody looking BMs last evening. He is instructed to noti fy the nurse when having a BM to assess color etc. He voices understanding. CARY GARDINER RN John Shields MD - 04/10/2018 8:17 AM PDTFormatting of this note might be different from th e original. Progress Notes by John Herring MD at 04/10/18816 Author: John Herring MD Service: Hospitalist Author Type: Physician Filed: 04/11/18817 Date of Service: 04/10/18816 Status: Signed Clearing Supervisor: John Herring MD (Physician) Related Notes: Original Note by John Herring MD (Physician) filed at 04/10/18 1728 [facility]: Hospitalist Progress Note Pt: Bayron Ulloa AGE/SEX: 82 y.o. male : 1935 ROOM: [facility] " Chief complaint: chest pain History of present illness: came to ED at [facility] in [place], [place] today mckay use of sudden onset chest pain at 5 PM today. He was eating dinner in his home with spouse a nd had just finished the meal and developed uncomfortable burning sensation in L-central precious st. It radiated into both arms. There was no associated dyspnea, nausea, or sweats. 911 was called and EMS gave him nitro x3, which did not affect the symptoms. He further got nitro pa missael in ED and also heartburn medication. His symptoms improved at that point. Now the sympto ms are gone. ED noted the patient's cardiac history and requested transfer to [facility] for further workup. The patient has had multiple UT's in the past and had 2 CABG's, as well. He used to follow with Dr Jenkins, who has now retired. He hasn't established care with a new compliance field technician vicky borrego "everything's been going well." He last had heart cath in 2009 for, as the patient describ es, cardiac clearance to get cholecystectomy. I have included some of the cath report here: Exam Date/Time: 10/03/2009 11:30 A Ordering Provider: SWAPNA CARRERA Order Detail: 5410 / / HCL Exam Description: CCL HEART CATH LT RETRO PERC ... INDICATIONS The patient is a very pleasant 73-year-old gentleman with past medical history of coronary artery disease status post a previous coronary artery bypass graft surgery who had a new onset of atrial flutter and fibrillation. He was suspected of having progression of his coronary artery disease and since he cannot undergo a stress test in view of joint problems involving his upper extremities, cardiac catheterization was advised to assess the status of his coronary arteries as well as his bypass grafts. ... CORONARY ANGIOGRAPHY 1. Left main had a mid 40% plaque. 2. The LAD had mild diffuse calcification with mild diffuse disease. The mid segment of the LAD had a discrete 70% stenosis. The first diagonal branch was a small-caliber vessel with a mid 90% stenosis. 3. The ramus intermedius was totally occluded at its ostium. 4. The left circumflex was a very small-caliber vessel with an ostial 99% stenosis. 5. The right coronary artery was totally occluded at its ostium. The mid segment of the RCA was filling via bridging collaterals. 6. The very distal portion of the RCA was filling via collaterals from the distal LAD, visualized upon injection of the RAM graft as well as the [place] artery. 7. Two saphenous vein grafts to the RCA appeared to be totally occluded. 8. The saphenous vein graft to the diagonal or an obtuse marginal branch was totally occluded. 9. Saphenous vein graft to the ramus intermedius was patent without any significantly obstructive stenosis in the ramus intermedius. 10. The RAM to the LAD was patent. The LAD beyond the RAM anastomosis did not have any significantly obstructive stenosis. LEFT VENTRICULOGRAM Left ventriculogram revealed a low normal left ventricular systolic function with ejection fraction of 50% with posterobasal hypokinesis. CONCLUSION 1. Coronary artery and graft disease as discussed above. 2. Low normal left ventricular systolic function, ejection fraction of 50%, with posterobasal hypokinesis. 3. Mildly elevated left ventricular end-diastolic pressure. RECOMMENDATIONS 1. Medical therapy. 2. Aggressive risk factor modification."..............per admission HP by Dr. Lake on 04/07 TODAY'S DATE: 04/10/2018 Hospital Day: LOS: 3 days SUBJECTIVE: 04/08/18: Patient had no episodes of chest pain ever since 7 p.m. last night. Hemodynamica lly stable. His troponins increased to 13.7. Cardiology was consulted by Dr. Lake yesterd ay. Today, patient is proceeding to planned cardiac catheterization by Dr. Warren. Family a nd patient at the bedside. All questions answered to their satisfaction. 04/09/18: Denies any chest pain. Currently on isosorbide mononitrate but also on heparin an d Integrilin infusion to limit the clot burden, as recommended by cardiology. Patient in re latively good spirits but concerned about the overall prognosis. Cardiologists Dr. Guilherme Scales are discussing at this point any risks of additional interventions. Dr. Gentry traylor or Dr. Scales will further discuss these issues and the risks with the patient and the family today. 04/10/18: Pt c/o "bloody looking" stools. Will for now stop heparin gtt and intergrilin gtt ; continue ASA and will add plavix should no more bleeding occur in the next 24 hrs. Will further d/w compliance field technician. Stool to be tested for heme occult ( first samples were discarded by the pt ). Review of Systems: Review of Systems Constitutional: Negative for fever, malaise/fatigue and weight loss. HENT: Negative for hearing loss. Eyes: Negative for blurred vision, double vision, photophobia and redness. Respiratory: Negative for cough, hemoptysis and sputum production. Cardiovascular: Positive for chest pain (resolved ). Negative for palpitations, claudicatio n, leg swelling and PND. Gastrointestinal: Negative for abdominal pain, blood in stool, heartburn, melena, nausea an d vomiting. Genitourinary: Negative for dysuria, flank pain, frequency and urgency. Musculoskeletal: Negative for myalgias and neck pain. Neurological: Negative for dizziness, tingling, speech change, focal weakness, seizures, lo ss of consciousness and headaches. Endo/Heme/Allergies: Negative for polydipsia. Psychiatric/Behavioral: Negative for depression and suicidal ideas. Scheduled Medications aspirin 325 mg Oral Daily with breakfast famotidine 20 mg Oral BID isosorbide mononitrate 60 mg Oral Daily lisinopril 2.5 mg Oral Daily metoprolol 50 mg Oral Daily nicotine 1 patch Transdermal Daily pantoprazole 40 mg Intravenous BID AC predniSONE 10 mg Oral Daily with breakfast sulfaSALAzine 500 mg Oral BID Continuous Infusions sodium chloride (IV) 30 mL/hr at 04/09/18 1756 PRN Medications acetaminophen OR acetaminophen, aluminum-magnesium hydroxide-simethicone, calcium carbo keisha, guaiFENesin, hydrALAZINE, HYDROcodone-acetaminophen, LORazepam OR LORazepam, magne sium sulfate OR magnesium sulfate OR magnesium sulfate, nitroGLYCERIN, ondansetron * *OR ondansetron, polyethylene glycol, potassium OR potassium OR potassium OR p otassium chloride OR potassium chloride OR potassium chloride, zolpidem Allergy: Allergies Allergen Reactions Adhesive Tape Other (See Comments) Adhesives in tape. Skin very fragile. Pravastatin Other (See Comments) Myalgias, myositis OBJECTIVE Vitals: Patient Vitals for the past 24 hrs: BP Temp Temp src Pulse Resp SpO2 Weight 04/10/18 1538 141/64 97.9 F (36.6 C) Oral 61 19 100 % - 04/10/18 1139 108/54 97.8 F (36.6 C) Oral 60 19 95 % - 04/10/18 0841 - - - 56 - - - 04/10/18 0734 113/55 97.9 F (36.6 C) Oral 59 19 96 % - 04/10/18 0338 116/57 98.6 F (37 C) Oral 67 20 98 % 79 kg (174 lb 2.6 oz) 04/09/18 2314 122/66 98.5 F (36.9 C) Oral 66 18 98 % - 04/09/18 1929 138/62 98 F (36.7 C) Oral 85 16 98 % - I&O Detailed Table: Intake/Output Summary (Last 24 hours) at 04/10/18 1723 Last data filed at 04/10/18 1655 Gross per 24 hour Intake 3581.59 ml Output 2050 ml Net 1531.59 ml Patient Vitals for the past 96 hrs: Weight 04/10/18 0338 79 kg (174 lb 2.6 oz) 04/09/18 0528 78.6 kg (173 lb 4.5 oz) 04/07/18 2138 81.2 kg (179 lb) Hemodynamics Last 24hrs: Examination: Physical Exam Constitutional: He is oriented to person, place, and time. No distress. HENT: Head: Normocephalic. Mouth/Throat: Oropharynx is clear and moist. Eyes: Pupils are equal, round, and reactive to light. No scleral icterus. Neck: Normal range of motion. Cardiovascular: Normal rate. Murmur heard. Pulmonary/Chest: Effort normal and breath sounds normal. No stridor. No respiratory distres s. He has no wheezes. Abdomina/Gl: Soft. Bowel sounds are normal. He exhibits no distension. There is no guarding . Musculoskeletal: Normal range of motion. He exhibits no edema. Neurological: He is alert and oriented to person, place, and time. He displays normal refle xes. No cranial nerve deficit. Coordination normal. Skin: Skin is warm and dry. Capillary refill takes less than 2 seconds. No rash noted. He i s not diaphoretic. Psychiatric: He has a normal mood and affect. LABS: Recent Labs Lab 04/10/18 1451 04/10/18 0416 04/09/18 0245 04/08/18 0231 WBC -- 9.03 9.37 10.32 HGB 13.5 12.3* 14.2 13.6 HCT 40.7 35.8* 41.0 39.8 PLT -- 152 167 172 NEUTOPHILPCT -- -- 78.82 77.55 MONOPCT -- -- 8.52 6.83 Recent Labs Lab 04/10/18 0416 04/09/18 1528 04/09/18 1150 04/09/18 0245 04/08/18 0231 NA 142 -- -- 141 141 K 3.7 3.9 3.6 3.6 3.6 CL 105 -- -- 104 104 CO2 28 -- -- 27 30 BUN 20 -- -- 15 21 CREATININE 0.9 -- -- 0.9 1.0 PROT 5.2* -- -- -- -- BILITOT 0.6 -- -- -- -- ALT 22 -- -- -- -- AST 38 -- -- -- -- Phospho Recent Labs Lab 04/10/18 1119 04/10/18 0416 04/09/18 2134 04/08/18 0041 APTT 32 59* 40* < > 87* INR -- -- -- -- 1.0 < > = values in this interval not displayed. Recent Labs Lab 04/08/18 0231 TSH 0.725 Recent Labs Lab 04/08/18 0231 04/07/18 2232 TROPONINI 13.7* 2.36* Diagnostic: X-ray Chest 1 View Result Date: 04/07/2018 This is a non-reportable procedure without a radiologist report and is used for image Hartman Wright only Past Medical History Diagnosis Date Coronary artery disease Osteoarthritis Rheumatoid arthritis (HCC) Past Surgical History Procedure Laterality Date CARDIAC SURGERY CHOLECYSTECTOMY CORONARY ARTERY BYPASS GRAFT HAND SURGERY PROBLEM LIST Principal Problem: NSTEMI (non-ST elevated myocardial infarction) (HCC) Active Problems: Rheumatoid arthritis of multiple sites with negative rheumatoid factor (HCC) History of acute myocardial infarction Hypertension CAD (coronary artery disease) Fatigue GI (gastrointestinal bleed) ASSESSMENT & PLAN 82-year-old male with history of coronary artery disease, previous CABG, rheumatoid arthrit is on chronic anti-inflammatory therapy, hypertension, who presents with the followin. Non-ST elevation UT, diffuse coronary artery disease with previous CABG times 2 (one re do or with redo already) in the remote past. Continue optimal medical therapy as recommende d by cardiology. We have discontinued patient's heparin and Integrilin infusion this mornin g as recommended by cardiology. This coincided with appearance of bloody stools which teste d positive for occult blood. For now, continue aspirin. The patient already received a dos e of Plavix. There was a plan to continue patient on aspirin and Plavix versus aspirin and Brilinta. Dr. Warren initiated effort to supply patient with Brilinta but now with appearan ce of bloody stools this plan is on hold. For now, we will continue aspirin and monitor H a nd H closely. Any plan for any additional cardiac intervention such as repeat angiography w ould only occur if the patient would develop recurrent chest pain, so I discussed it with Dr Pillo Warren. This is due to patient's very high risk of any additional interventions at the pr esent time. 2. Acute GI blood loss. Continue to check H and H every 8 hours. Discontinued Integrilin and heparin drips this morning. Initiate high-dose PPI therapy in case the patient has upp er GI source of the GI bleed. GI consulted - Dr. Trice Tse for opinion. Fo r now, conservative therapy in view of patient's recent non-ST elevation UT. 3. Hypertension. Tolerating increased doses of beta blockers, now at metoprolol XL 50 mg by mouth daily, lisinopril 2.5 mg by mouth daily, isosorbide mononitrate 60 mg by mouth samina y. 4. History of rheumatoid arthritis. Continue low-dose prednisone and sulfasalazine. Dyan ent at risk of peptic ulcer disease in view of chronic prednisone therapy. 5. Deconditioning. Start therapeutic walks three times daily as tolerated. John Herring MD 04/10/2018 5:23 PM onversion Transa ction, Provider Unknown - 04/09/2018 6:50 PM PDT Nurse Progress Note by Pily Sloan RN at 04/09/181849 Author: Pily Sloan RN Service: (none) Author Type: Registered Nurse Filed: 04/09/181929 Date of Service: 04/09/181849 Status: Signed Clearing Supervisor: Pily Sloan RN (Registered Nurse) Patient denies CP throughout shift. Heparin gtt therapeutic x1. PO metoprolol dose increase d today, tolerated well. PILY SLOAN RN Chasity Christine MD - 04/09/2018 6:04 PM PDTFormatting of this note might be different fr om the original. Progress Notes by Chasity Warren MD at 04/09/181803 Author: Chasity Warren MD Service: Interventional Cardiology Author Type: Yvonne n Filed: 04/09/181818 Date of Service: 04/09/181803 Status: Signed Clearing Supervisor: Chasity Warren MD (Physician) [facility]: Cardiology Progress Note Hospital Day: LOS: 2 days - Patient remains hemodynamically stable and chest pain free - Discussed with patient and family in length coronary anatomy and options for management. - Given large thrombus burden in large, old marvel graft to much smaller Ramus with extension of thrombus to [place] ramus, PCI carry high risk of failure, vessel occlusion and no reflow phenomenon. - The best option at this point is medical management - LVEF is low normal and he has been chest pain free - Toprol dose increased to 50 mg today - Continue aspirin, plavix imdur and lisinopril - Continue heparin and integrelin drip till tomorrow then stop - Switch plavix to brilinta if covered by insurance - Will send prescription [facility]ilinta [facility], if covered then discharge on brilint a and change aspirin to 81 mg and discontinue plavix - If had recurrent chest pain despite medical therapy then consider repeat SVG to ramus ang iogram Code Status: Full Code Chasity Warren MD 04/09/2018 onversion T ransaction, Provider Unknown - 04/09/2018 12:47 PM PDTFormatting of this note might be diffe rent from the original. Case Management by Carina Armas RN at 04/09/181246 Author: Carina Armas RN Service: (none) Author Type: Registered Nurse Filed: 04/09/187 Date of Service: 04/09/181246 Status: Signed Clearing Supervisor: Carina Armas RN (Registered Nurse) Met with pt and spouse re d/c planning. Pt will have cath tomorrow. Pt is from home, has dm e and is established on Plavix. Tash Ry Barajas MD - 04/09/2018 11:02 AM PDT Progress Notes by Ry Scales MD at 04/09/18 1102 Author: Ry Scales MD Service: Cardiology Author Type: Physician Filed: 04/09/18 1111 Date of Service: 04/09/18 110 Status: Signed Clearing Supervisor: Ry Scales MD (Physician) [facility]: Cardiology Progress Note Hospital Day: LOS: 2 days Post-Op Day: * No surgery found * SUBJECTIVE Patient Summary: Patient seen by the bedside no new complaints. No overnight events, n o chest pain currently. Underwent cath yesterday showed large fresh thrombus noted in the mi d to distal SVG to Ramus also involving [place] ostial ramus, given extensive clot burden dec ision was made to not proceed with PCI and was started on Integrilin drip hoping soften the clot and re evaluate for PCI in 2-3 days. Denies any chest pain, SOB, palpitations, dizzine ss, syncope, orthopnea, PND. 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 Scheduled Medications aspirin 325 mg Oral Daily with breakfast clopidogrel 75 mg Oral Daily famotidine 20 mg Oral BID isosorbide mononitrate 60 mg Oral Daily lisinopril 2.5 mg Oral Daily [START ON 04/10/2018] metoprolol 50 mg Oral Daily nicotine 1 patch Transdermal Daily predniSONE 10 mg Oral Daily with breakfast sulfaSALAzine 500 mg Oral BID Continuous Infusions eptifibatide 0.75 mg/mL 2 mcg/kg/min (04/09/18 0254) heparin 50 units/mL 10 Units/kg/hr (04/09/18 0944) sodium chloride (IV) 75 mL/hr at 04/09/18 0626 PRN Medications acetaminophen OR acetaminophen, aluminum-magnesium hydroxide-simethicone, atropine sulf ate, calcium carbonate, guaiFENesin, heparin (porcine) 5000 unit/0.5mL, heparin (porcine) 50 00 unit/0.5mL, hydrALAZINE, HYDROcodone-acetaminophen, LORazepam, magnesium sulfate OR m agnesium sulfate OR magnesium sulfate, nitroGLYCERIN, ondansetron OR ondansetron, po lyethylene glycol, potassium OR potassium OR potassium OR potassium chloride O R potassium chloride OR potassium chloride, sodium chloride (bolus), zolpidem OBJECTIVE Vital Signs: BP 116/74 | Pulse 110 | Temp 97.4 F (36.3 C) (Oral) | Resp 19 | Ht 1.778 m (5' 10") | Wt 78.6 kg (173 lb 4.5 oz) | SpO2 96% | BMI 24.86 kg/m Constitutional: Well-developed. Neck: No JVD present. No thyromegaly present. Cardiovascular: Regular rhythm, S1 normal and S2 normal. +ve systolic murmur heard. Pulses:+2 B/L Pulmonary/Chest: Effort normal and breath sounds normal. No wheezes. No rales. Abdominal: Soft. No tenderness. Musculoskeletal: No edema. Neurological: Alert. No cranial nerve deficit. Skin: Warm and dry. Access site no complications, good pulses, no bleeding, discharge DATA CBC: Lab Results Component Value Date WBC 9.37 04/09/2018 RBC 4.55 04/09/2018 HGB 14.2 04/09/2018 HCT 41.0 04/09/2018 MCV 90.1 04/09/2018 MCH 31.2 04/09/2018 MCHC 34.7 04/09/2018 RDW 44.2 04/09/2018 PLT 167 04/09/2018 MPV 8.9 04/09/2018 DIFFTYPE AUTOMATED 04/09/2018 BMP: Lab Results Component Value Date NA 141 04/09/2018 K 3.6 04/09/2018 CL 104 04/09/2018 CO2 27 04/09/2018 ANIONGAP 14 04/09/2018 GLUF 94 04/09/2018 BUN 15 04/09/2018 CREATININE 0.9 04/09/2018 BCR 17 04/09/2018 CA 8.8 04/09/2018 EGFR >60 04/09/2018 PT/INR: Lab Results Component Value Date INR 1.0 04/08/2018 PROBLEM LIST Principal Problem: NSTEMI (non-ST elevated myocardial infarction) ([facility]) Active Problems: Rheumatoid arthritis of multiple sites with negative rheumatoid factor (HCC) History of acute myocardial infarction Hypertension CAD (coronary artery disease) Fatigue ASSESSMENT & PLAN NSTEMI- with large thrombus in SVG to ramus - currently on Integrilin and heparin drip, pos sible re attempt for PCI in two to three days if clot burden improves- Dr. Warren will deter mine Patent RAM to LAD Non sustained VT- no significant events overnight Hx of CABGX5 in 1998, last cath 2009 showed patent RAM to LAD, SVG to Ramus, known occlude d SVG X2 to RCA and SVG to D1 Preserved LV systolic function with posterior lateral wall hypokinesis Marked first degree AVB HTN HLD Rheumatoid arthritis Continue heparin drip. Integrelin can be stopped but Dr. Dr. Warren will decide on this matter. Continue ASA, Plavix, Lisinopril, Imdur, Metoprolol Titrate BP medication for better BP control Supportive care. Monitor electrolytes, cr, H/H, weights, I/Os Close monitoring for signs of respiratory distress. He will need better sedation if angiogram is to be attempted- may consider anesthesia suppo rt Code Status: Full Code Ry Scales MD 04/09/2018 Mindy Bolanos MD - 04/09/2018 8:27 AM PDTFormatting of this note might be different from the darleen floyd Progress Notes by John Herring MD at 04/09/1837 Author: John Herring MD Service: Hospitalist Author Type: Physician Filed: 04/10/18 0753 Date of Service: 04/09/18826 Status: Signed Clearing Supervisor: John Herring MD (Physician) Related Notes: Original Note by John Herring MD (Physician) filed at 04/09/18 1810 [facility]: Hospitalist Progress Note Pt: Bayron Ulloa AGE/SEX: 82 y.o. male : 1935 ROOM: [facility]/4440-1 " Chief complaint: chest pain History of present illness: came to ED at [facility] in [place], [place] today mckay use of sudden onset chest pain at 5 PM today. He was eating dinner in his home with spouse charly nd had just finished the meal and developed uncomfortable burning sensation in L[place]. It radiated into both arms. There was no associated dyspnea, nausea, or sweats. 911 was called and EMS gave him nitro x3, which did not affect the symptoms. He further got nitro pa missael in ED and also heartburn medication. His symptoms improved at that point. Now the sympto ms are gone. ED noted the patient's cardiac history and requested transfer to [facility] for further workup. The patient has had multiple UT's in the past and had 2 CABG's, as well. He used to follow with Dr Jenkins, who has now retired. He hasn't established care with a new compliance field technician vicky borrego "everything's been going well." He last had heart cath in 2009 for, as the patient describ , cardiac clearance to get cholecystectomy. I have included some of the cath report here: Exam Date/Time: 10/03/2009 11:30 A Ordering Provider: SWAPNA CARRERA Order Detail: 5410 / / HCL Exam Description: CCL HEART CATH LT RETRO PERC ... INDICATIONS The patient is a very pleasant 73-year-old gentleman with past medical history of coronary artery disease status post a previous coronary artery bypass graft surgery who had a new onset of atrial flutter and fibrillation. He was suspected of having progression of his coronary artery disease and since he cannot undergo a stress test in view of joint problems involving his upper extremities, cardiac catheterization was advised to assess the status of his coronary arteries as well as his bypass grafts. ... CORONARY ANGIOGRAPHY 1. Left main had a mid 40% plaque. 2. The LAD had mild diffuse calcification with mild diffuse disease. The mid segment of the LAD had a discrete 70% stenosis. The first diagonal branch was a small-caliber vessel with a mid 90% stenosis. 3. The ramus intermedius was totally occluded at its ostium. 4. The left circumflex was a very small-caliber vessel with an ostial 99% stenosis. 5. The right coronary artery was totally occluded at its ostium. The mid segment of the RCA was filling via bridging collaterals. 6. The very distal portion of the RCA was filling via collaterals from the distal LAD, visualized upon injection of the RAM graft as well as the [place] artery. 7. Two saphenous vein grafts to the RCA appeared to be totally occluded. 8. The saphenous vein graft to the diagonal or an obtuse marginal branch was totally occluded. 9. Saphenous vein graft to the ramus intermedius was patent without any significantly obstructive stenosis in the ramus intermedius. 10. The RAM to the LAD was patent. The LAD beyond the RAM anastomosis did not have any significantly obstructive stenosis. LEFT VENTRICULOGRAM Left ventriculogram revealed a low normal left ventricular systolic function with ejection fraction of 50% with posterobasal hypokinesis. CONCLUSION 1. Coronary artery and graft disease as discussed above. 2. Low normal left ventricular systolic function, ejection fraction of 50%, with posterobasal hypokinesis. 3. Mildly elevated left ventricular end-diastolic pressure. RECOMMENDATIONS 1. Medical therapy. 2. Aggressive risk factor modification."..............per admission HP by Dr. Lake on 04/07 TODAY'S DATE: 04/09/2018 Hospital Day: LOS: 2 days SUBJECTIVE: 04/08/18: Patient had no episodes of chest pain ever since 7 p.m. last night. Hemodynamica lly stable. His troponins increased to 13.7. Cardiology was consulted by Dr. Lake yesterd ay. Today, patient is proceeding to planned cardiac catheterization by Dr. Warren. Family a nd patient at the bedside. All questions answered to their satisfaction. 04/09/18: Denies any chest pain. Currently on isosorbide mononitrate but also on heparin an d Integrilin infusion to limit the clot burden, as recommended by cardiology. Patient in re latively good spirits but concerned about the overall prognosis. Cardiologists Dr. Guilherme Scales are discussing at this point any risks of additional interventions. Dr. Gentry traylor or Dr. Scales will further discuss these issues and the risks with the patient and the family today. Review of Systems: Review of Systems Constitutional: Negative for fever, malaise/fatigue and weight loss. HENT: Negative for hearing loss. Eyes: Negative for blurred vision, double vision, photophobia and redness. Respiratory: Negative for cough, hemoptysis and sputum production. Cardiovascular: Positive for chest pain (resolved ). Negative for palpitations, claudicatio n, leg swelling and PND. Gastrointestinal: Negative for abdominal pain, blood in stool, heartburn, melena, nausea an d vomiting. Genitourinary: Negative for dysuria, flank pain, frequency and urgency. Musculoskeletal: Negative for myalgias and neck pain. Neurological: Negative for dizziness, tingling, speech change, focal weakness, seizures, lo ss of consciousness and headaches. Endo/Heme/Allergies: Negative for polydipsia. Psychiatric/Behavioral: Negative for depression and suicidal ideas. Scheduled Medications aspirin 325 mg Oral Daily with breakfast clopidogrel 75 mg Oral Daily famotidine 20 mg Oral BID isosorbide mononitrate 60 mg Oral Daily lisinopril 2.5 mg Oral Daily [START ON 04/10/2018] metoprolol 50 mg Oral Daily nicotine 1 patch Transdermal Daily predniSONE 10 mg Oral Daily with breakfast sulfaSALAzine 500 mg Oral BID Continuous Infusions eptifibatide 0.75 mg/mL 2 mcg/kg/min (04/09/18 1309) heparin 50 units/mL 10 Units/kg/hr (04/09/18 1616) sodium chloride (IV) 30 mL/hr at 04/09/18 1756 PRN Medications acetaminophen OR acetaminophen, aluminum-magnesium hydroxide-simethicone, calcium carbo keisha, guaiFENesin, heparin (porcine) 5000 unit/0.5mL, heparin (porcine) 5000 unit/0.5mL, hyd rALAZINE, HYDROcodone-acetaminophen, LORazepam, magnesium sulfate OR magnesium sulfate * *OR magnesium sulfate, nitroGLYCERIN, ondansetron OR ondansetron, polyethylene glycol, potassium OR potassium OR potassium OR potassium chloride OR potassium chlo ride OR potassium chloride, zolpidem Allergy: Allergies Allergen Reactions Adhesive Tape Other (See Comments) Adhesives in tape. Skin very fragile. Pravastatin Other (See Comments) Myalgias, myositis OBJECTIVE Vitals: Patient Vitals for the past 24 hrs: BP Temp Temp src Pulse Resp SpO2 Weight 04/09/18 1610 110/63 97.5 F (36.4 C) Oral 75 18 98 % - 04/09/18 1131 113/66 97.8 F (36.6 C) Oral 109 19 100 % - 04/09/18 1049 116/74 - - 110 - - - 04/09/18 0830 126/72 - - 110 - - - 04/09/18 0744 151/74 97.4 F (36.3 C) Oral 100 19 96 % - 04/09/18 0528 - - - - - - 78.6 kg (173 lb 4.5 oz) 04/09/18 0334 152/74 98.8 F (37.1 C) Oral 82 20 97 % - 04/08/18 2331 149/73 97.8 F (36.6 C) Oral 110 21 98 % - 04/08/18 1948 154/75 98.3 F (36.8 C) Oral 77 16 96 % - I&O Detailed Table: Intake/Output Summary (Last 24 hours) at 04/09/18 1807 Last data filed at 04/09/18 1756 Gross per 24 hour Intake 4641.8 ml Output 1740 ml Net 2901.8 ml Patient Vitals for the past 96 hrs: Weight 04/09/18 0528 78.6 kg (173 lb 4.5 oz) 04/07/18 2138 81.2 kg (179 lb) Hemodynamics Last 24hrs: Examination: Physical Exam Constitutional: He is oriented to person, place, and time. No distress. HENT: Head: Normocephalic. Mouth/Throat: Oropharynx is clear and moist. Eyes: Pupils are equal, round, and reactive to light. No scleral icterus. Neck: Normal range of motion. Cardiovascular: Normal rate. Murmur heard. Pulmonary/Chest: Effort normal and breath sounds normal. No stridor. No respiratory distres s. He has no wheezes. Abdomina/Gl: Soft. Bowel sounds are normal. He exhibits no distension. There is no guarding . Musculoskeletal: Normal range of motion. He exhibits no edema. Neurological: He is alert and oriented to person, place, and time. He displays normal refle xes. No cranial nerve deficit. Coordination normal. Skin: Skin is warm and dry. Capillary refill takes less than 2 seconds. No rash noted. He i s not diaphoretic. Psychiatric: He has a normal mood and affect. LABS: Recent Labs Lab 04/09/18 0245 04/08/18 0231 WBC 9.37 10.32 HGB 14.2 13.6 HCT 41.0 39.8 PLT 167 172 NEUTOPHILPCT 78.82 77.55 MONOPCT 8.52 6.83 Recent Labs Lab 04/09/18 1528 04/09/18 1150 04/09/18 0245 04/08/18 0231 NA -- -- 141 141 K 3.9 3.6 3.6 3.6 CL -- -- 104 104 CO2 -- -- 27 30 BUN -- -- 15 21 CREATININE -- -- 0.9 1.0 Phospho Recent Labs Lab 04/09/18 1528 04/09/18 0915 04/09/18 0245 04/08/18 0041 APTT 46* 57* 68* < > 87* INR -- -- -- -- 1.0 < > = values in this interval not displayed. Recent Labs Lab 04/08/18 0231 TSH 0.725 Recent Labs Lab 04/08/18 0231 04/07/18 2232 TROPONINI 13.7* 2.36* Diagnostic: X-ray Chest 1 View Result Date: 04/07/2018 This is a non-reportable procedure without a radiologist report and is used for image Hartman Wright only Past Medical History Diagnosis Date Coronary artery disease Osteoarthritis Rheumatoid arthritis (HCC) Past Surgical History Procedure Laterality Date CARDIAC SURGERY CHOLECYSTECTOMY CORONARY ARTERY BYPASS GRAFT HAND SURGERY PROBLEM LIST Principal Problem: NSTEMI (non-ST elevated myocardial infarction) (HCC) Active Problems: Rheumatoid arthritis 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 [id number] UT. Diffuse coronary artery disease with previous CABG with a redo in the past. Continue optimal medical therapy as recommended/ordered by cardiology. Currentl y on heparin and Integrilin infusion, along with aspirin, Plavix, isosorbide mononitrate, li sinopril. We have increased patient's from metoprolol XL 25 to 50 mg by mouth daily. 2. History of rheumatoid arthritis - continue prednisone and sulfasalazine. 3. Hypertension: Increase metoprolol from 25 to 50 mg by mouth daily. 4. DVT prophylaxis - patient already anticoagulated. 5. Anxiety: Patient reports intermittent anxiety, particularly during the procedure time frame. He had state of anxiety which he recalls during the cardiac catheterization yesterda y. He is requesting as-needed antianxiety therapy, in particularly during the procedure lizeth uld it be repeated again. John Herring MD 04/09/2018 6:07 PM onversion Transa ction, Provider Unknown - 04/08/2018 2:56 PM PDT Progress Notes by Milagros Campoverde RPH at 04/08/181455 Author: Milagros Campoverde RPH Service: Pharmacy Author Type: Pharmacist Filed: 04/08/181455 Date of Service: 04/08/181455 Status: Signed Clearing Supervisor: Milagros Campoverde RPH (Pharmacist) Clinical Pharmacy Note: Renal Monitoring Bayron Ulloa 82 y.o. male Ht Readings from Last 1 Encounters: 04/07/18 1.778 m (5' 10") Wt Readings from Last 1 Encounters: 04/07/18 81.2 kg (179 lb) Serum creatinine: 1 mg/dL 04/08/18 0231 Estimated creatinine clearance: 56.8 mL/min Pharmacy dosing for renal function per Dr. Warren. Currently, there are no medications needing to be adjusted. Pharmacy will continue to monit or for changes in medication orders and in renal function and adjust accordingly. Milagros Campoverde PharmD 04/08/2018 2:56 PM onver bridget Transaction, Provider Unknown - 04/08/2018 2:37 PM PDT Nurse Progress Note by Kandi Godinez RN at 04/08/18 454 Author: Kandi Godinez RN Service: (none) Author Type: Registered Nurse Filed: 04/08/18 1438 Date of Service: 04/08/181436 Status: Signed Clearing Supervisor: Kandi Godinez RN (Registered Nurse) Pt transferred from laborer landscape. Integrelin gtt running at 2 mcg/kg/hr per order. Heparin gtt to be restarted at 1500 per report. Femstop in place on R groin mynx access site, to remain on until 1500 per report. RLE pulses palpable. Pt educated on safety precautions. Kandi Godinez RN onver bridget Transaction, Provider Unknown - 04/08/2018 12:58 PM PDT Nurse Progress Note by Jaun Blood RN at 04/08/181257 Author: Juan Blood RN Service: Cardiac, Thoracic, and Vascular Surgery Author T ype: Registered Nurse Filed: 04/08/181257 Date of Service: 04/08/181257 Status: Signed Clearing Supervisor: Juan Blood RN (Registered Nurse) Dr. Warren gave VO for heparin gtt to restart in 2 hours post end of case at 1235. onver bridget Transaction, Provider Unknown - 04/08/2018 10:55 AM PDT Case Management by Kandi Gonzalez RN at 04/08/18 1055 Author: Kandi Gonzalez RN Service: (none) Author Type: Registered Nurse Filed: 04/08/18 1106 Date of Service: 04/08/181054 Status: Signed Clearing Supervisor: Kandi Gonzalez RN (Registered Nurse) 04/08/18 1053 Discharge Planning Evaluation Living Arrangements Spouse/significant other Support Systems Spouse/significant other Type of Residence Private residence Independent with ADL's Yes Independent with Mobility Yes Home Care Services No Caregiver after Discharge No Mental Status Oriented Resources Financial concerns No Transportation issues No Patient/Family concerns No Prescription Plan Yes Name of Pharmacy [facility] [place] Previous home health equipment Yes CM attempted to meet with pt but he is in laborer landscape-CM called Aline and obtained asses sment information. CM discussed discharge planning, Pt is a 82 y.o., male admitted with NSTE UT. Pt and live in [place], [place]. Pt is independent at baseline with walker/cane. W juan states they have no home care services currently. Pt was on Plavix prior to admit. CM wi ll need to follow and assess for d/c needs after laborer landscape. Patient's PCP is: Stanislaw Harper Patient's insurance: Medicare/[employer] Coverage concerns: no Medication coverage/concerns: no concerns Rx Bedside Delivery: tbd Community resources utilized / needed: no Assistance in transportation: tbd; family to transport Identification of any specific education / training: tbd Barriers to Discharge / Alternative housing needed: tbd Anticipated DCP: tbd pending clinical course-CM to follow Kandi Gonzalez [phone] onver bridget Transaction, Provider Unknown - 04/08/2018 10:25 AM PDT Nurse Progress Note by Elisabeth Rueda RN at 04/08/18 1025 Author: Elisabeth Rueda RN Service: (none) Author Type: Registered Nurse Filed: 04/08/18 1026 Date of Service: 04/08/181024 Status: Signed Clearing Supervisor: Elisabeth Rueda RN (Registered Nurse) Patient transferred to laborer landscape via stretcher. Tele notified. Groin sites prepped, no addit ional IV in place. cemetery laborer notified. onver bridget Transaction, Provider Unknown - 04/08/2018 9:00 AM PDT Nurse Progress Note by Elisabeth Rueda RN at 04/08/18 09 Author: Elisabeth Rueda RN Service: (none) Author Type: Registered Nurse Filed: 04/08/18900 Date of Service: 04/08/18899 Status: Signed Clearing Supervisor: Elisabeth Rueda RN (Registered Nurse) Dr. Scales at the bedside to see patient. Verified if all cardiac meds need to be held o r given, pt's BP in the 140's to 150's. Okay to hold all meds per Dr. Scales, will take p t for heart catheterization later today. onver bridget Transaction, Provider Unknown - 04/08/2018 8:30 AM PDT Nurse Progress Note by Elisabeth Rueda RN at 04/08/18829 Author: Elisabeth Rueda RN Service: (none) Author Type: Registered Nurse Filed: 04/08/18832 Date of Service: 04/08/18829 Status: Signed Clearing Supervisor: Elisabeth Rueda RN (Registered Nurse) Called and left message with Dr. Scales, no answer. Per Dr. Herring, Dr. Scales should be seeing the patient today for a consult and possible heart cath. Went to [facility] and called Dr. Charles, who stated he is doing the in-hospital cardiology consults today, but stated e hospitalist should just call him to regarding the patient. Dr. Herring paged with updated i nformation. John Shields MD - 04/08/2018 8:11 AM PDTFormatting of this note might be different from th e original. Progress Notes by John Herring MD at 04/08/18810 Author: John Herring MD Service: Hospitalist Author Type: Physician Filed: 04/08/182001 Date of Service: 04/08/18810 Status: Signed Clearing Supervisor: John Herring MD (Physician) Related Notes: Original Note by John Herring MD (Physician) filed at 04/08/18 1704 [facility] Service: Hospitalist Progress Note Pt: Bayron Ulloa AGE/SEX: 82 y.o. male : 1935 ROOM: [address] [place] [address] " Chief complaint: chest pain History of present illness: came to ED at [facility] in [place], [place] today mckay use of sudden onset chest pain at 5 PM today. He was eating dinner in his home with spouse a nd had just finished the meal and developed uncomfortable burning sensation in L-central precious [address]. It radiated into both arms. There was no associated dyspnea, nausea, or sweats. 911 was called and EMS gave him nitro x3, which did not affect the symptoms. He further got nitro pa missael in ED and also heartburn medication. His symptoms improved at that point. Now the sympto ms are gone. ED noted the patient's cardiac history and requested transfer to [facility] for further workup. The patient has had multiple UT's in the past and had 2 CABG's, as well. He used to follow with Dr Jenkins, who has now retired. He hasn't established care with a new compliance field technician vicky borrego "everything's been going well." He last had heart cath in 2009 for, as the patient describ es, cardiac clearance to get cholecystectomy. I have included some of the cath report here: Exam Date/Time: 10/03/2009 11:30 A Ordering Provider: SWAPNA CARRERA Order Detail: 5410 / / HCL Exam Description: CCL HEART CATH LT RETRO PERC ... INDICATIONS The patient is a very pleasant 73-year-old gentleman with past medical history of coronary artery disease status post a previous coronary artery bypass graft surgery who had a new onset of atrial flutter and fibrillation. He was suspected of having progression of his coronary artery disease and since he cannot undergo a stress test in view of joint problems involving his upper extremities, cardiac catheterization was advised to assess the status of his coronary arteries as well as his bypass grafts. ... CORONARY ANGIOGRAPHY 1. Left main had a mid 40% plaque. 2. The LAD had mild diffuse calcification with mild diffuse disease. The mid segment of the LAD had a discrete 70% stenosis. The first diagonal branch was a small-caliber vessel with a mid 90% stenosis. 3. The ramus intermedius was totally occluded at its ostium. 4. The left circumflex was a very small-caliber vessel with an ostial 99% stenosis. 5. The right coronary artery was totally occluded at its ostium. The mid segment of the RCA was filling via bridging collaterals. 6. The very distal portion of the RCA was filling via collaterals from the distal LAD, visualized upon injection of the RAM graft as well as the [place] artery. 7. Two saphenous vein grafts to the RCA appeared to be totally occluded. 8. The saphenous vein graft to the diagonal or an obtuse marginal branch was totally occluded. 9. Saphenous vein graft to the ramus intermedius was patent without any significantly obstructive stenosis in the ramus intermedius. 10. The RAM to the LAD was patent. The LAD beyond the RAM anastomosis did not have any significantly obstructive stenosis. LEFT VENTRICULOGRAM Left ventriculogram revealed a low normal left ventricular systolic function with ejection fraction of 50% with posterobasal hypokinesis. CONCLUSION 1. Coronary artery and graft disease as discussed above. 2. Low normal left ventricular systolic function, ejection fraction of 50%, with posterobasal hypokinesis. 3. Mildly elevated left ventricular end-diastolic pressure. RECOMMENDATIONS 1. Medical therapy. 2. Aggressive risk factor modification."..............per admission HP by Dr. Lake on 04/07 TODAY'S DATE: 04/08/2018 Hospital Day: LOS: 1 day SUBJECTIVE: Patient had no episodes of chest pain ever since 7 p.m. last night. Hemodynami chelo stable. His troponins increased to 13.7. Cardiology was consulted by Dr. Jaya workman. Today, patient is proceeding to planned cardiac catheterization by Dr. Warren. Family and patient at the bedside. All questions answered to their satisfaction. Review of Systems: Review of Systems Constitutional: Negative for fever, malaise/fatigue and weight loss. HENT: Negative for hearing loss. Eyes: Negative for blurred vision, double vision, photophobia and redness. Respiratory: Negative for cough, hemoptysis and sputum production. Cardiovascular: Positive for chest pain (resolved ). Negative for palpitations, claudicatio n, leg swelling and PND. Gastrointestinal: Negative for abdominal pain, blood in stool, heartburn, melena, nausea an d vomiting. Genitourinary: Negative for dysuria, flank pain, frequency and urgency. Musculoskeletal: Negative for myalgias and neck pain. Neurological: Negative for dizziness, tingling, speech change, focal weakness, seizures, lo ss of consciousness and headaches. Endo/Heme/Allergies: Negative for polydipsia. Psychiatric/Behavioral: Negative for depression and suicidal ideas. Scheduled Medications aspirin 325 mg Oral Daily with breakfast clopidogrel 75 mg Oral Daily heparin (porcine) 5000 unit/0.5mL 5,000 Units Subcutaneous 3 times per day isosorbide mononitrate 30 mg Oral Daily lisinopril 2.5 mg Oral Daily metoprolol 25 mg Oral Daily nitroGLYCERIN 0.5 inch Topical Q6H predniSONE 10 mg Oral Daily with breakfast sulfaSALAzine 500 mg Oral BID Continuous Infusions heparin 50 units/mL 12 Units/kg/hr (04/08/18 0031) PRN Medications acetaminophen OR acetaminophen, aluminum-magnesium hydroxide-simethicone, heparin (porc ine) 5000 unit/0.5mL, heparin (porcine) 5000 unit/0.5mL, HYDROcodone-acetaminophen, ondanset manoj OR ondansetron, polyethylene glycol, zolpidem Allergy: Allergies Allergen Reactions Adhesive Tape Other (See Comments) Adhesives in tape. Skin very fragile. Pravastatin Other (See Comments) Myalgias, myositis OBJECTIVE Vitals: Patient Vitals for the past 24 hrs: BP Temp Temp src Pulse Resp SpO2 Height Weight 04/08/18 0730 150/71 97.5 F (36.4 C) Oral 63 20 95 % - - 04/08/18 0412 155/81 98.4 F (36.9 C) Oral 65 19 98 % - - 04/08/18 0108 145/72 98.9 F (37.2 C) Oral 62 18 97 % - - 04/07/18 2352 - - - 59 - - - - 04/07/18 2138 177/79 98.1 F (36.7 C) Oral 74 16 95 % 1.778 m (5' 10") 81.2 kg (179 lb) I&O Detailed Table: No intake or output data in the 24 hours ending 04/08/18 0811 Patient Vitals for the past 96 hrs: Weight 04/07/18 2138 81.2 kg (179 lb) Hemodynamics Last 24hrs: Examination: Physical Exam Constitutional: He is oriented to person, place, and time. No distress. HENT: Head: Normocephalic. Mouth/Throat: Oropharynx is clear and moist. Eyes: Pupils are equal, round, and reactive to light. No scleral icterus. Neck: Normal range of motion. Cardiovascular: Normal rate. Murmur heard. Pulmonary/Chest: Effort normal and breath sounds normal. No stridor. No respiratory distres s. He has no wheezes. Abdomina/Gl: Soft. Bowel sounds are normal. He exhibits no distension. There is no guarding . Musculoskeletal: Normal range of motion. He exhibits no edema. Neurological: He is alert and oriented to person, place, and time. He displays normal refle xes. No cranial nerve deficit. Coordination normal. Skin: Skin is warm and dry. Capillary refill takes less than 2 seconds. No rash noted. He i s not diaphoretic. Psychiatric: He has a normal mood and affect. LABS: Recent Labs Lab 04/08/18 0231 WBC 10.32 HGB 13.6 HCT 39.8 PLT 172 NEUTOPHILPCT 77.55 MONOPCT 6.83 Recent Labs Lab 04/08/18 0231 NA 141 K 3.6 CL 104 CO2 30 BUN 21 CREATININE 1.0 Phospho Recent Labs Lab 04/08/18 0635 04/08/18 0041 APTT 62* 87* INR -- 1.0 Recent Labs Lab 04/08/18 023 TSH 0.725 Recent Labs Lab 04/08/18 0231 04/07/18 2232 TROPONINI 13.7* 2.36* Diagnostic: X-ray Chest 1 View Result Date: 04/07/2018 This is a non-reportable procedure without a radiologist report and is used for image Hartman Wright only Past Medical History Diagnosis Date Coronary artery disease Osteoarthritis Rheumatoid arthritis (HCC) Past Surgical History Procedure Laterality Date CARDIAC SURGERY CHOLECYSTECTOMY CORONARY ARTERY BYPASS GRAFT HAND SURGERY PROBLEM LIST Principal Problem: NSTEMI (non-ST elevated myocardial infarction) (HCC) Active Problems: Rheumatoid arthritis 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 Non-ST elevation UT. The patient had a significant rise in troponins. Optimal medical therapy has been instituted. Cardiology was consulted and recommended cardiac catheterizat ion, which will be conducted by Dr. Warren. Further recommendations as per cardiology. Con tinue telemetry monitoring. Patient is already admitted to inpatient status. Await results of echocardiogram as well. 2. History of rheumatoid arthritis. Continue prednisone, sulfasalazine. 3. Hypertension. Continue patient's usual cardiac medications including metoprolol, lisin opril. Adjust medical therapy as tolerated. 4. DVT prophylaxis. Patient already anticoagulated. John Herring MD 04/08/2018 8:11 AM onversion Transa ction, Provider Unknown - 04/08/2018 7:52 AM PDT Nurse Progress Note by Elisabeth Rueda RN at 04/08/18751 Author: Elisabeth Rueda RN Service: (none) Author Type: Registered Nurse Filed: 04/08/18754 Date of Service: 04/08/18751 Status: Addendum Clearing Supervisor: Elisabeth Rueda RN (Registered Nurse) Related Notes: Original Note by Elisabeth Rueda RN (Registered Nurse) filed at 04/08/18754 Tele called this RN to notify that patient had 15 beats of Vtach and 5 beats of AIVR. Check ed on patient, who denies any chest pain, SOB, palpitations or lightheadedness. ECHO in the room, factory maintenance technician also noticed abnormal rhythm and asked pt if he was experiencing any symptom s, to which pt denied. Dr. Herring notified. onver bridget Transaction, Provider Unknown - 04/08/2018 3:41 AM PDT Pharmacy Note by Rasheeda Owens RPH at 04/08/18340 Author: Rasheeda Owens RPH Service: Pharmacy Author Type: Pharmacist Filed: 04/08/18340 Date of Service: 04/08/18340 Status: Signed Clearing Supervisor: Rasheeda Owens RPH (Pharmacist) Clinical Pharmacy Note: Renal Monitoring Height: 177.8 cm Weight: 81.2 kg Serum Creatinine: 1.14 mg/dL (from [facility]) Estimated creatinine clearance - Cockcroft-Gault CrCl: 50 mL/min Pharmacy dosing for renal function per Dr. Lake. Currently there are no medications needing to be adjusted. Pharmacy will continue to monito r for changes in medication orders and in renal function and adjust accordingly. Rasheeda Owens [facility] 04/08/2018 3:41 AM onver bridget Transaction, Provider Unknown - 04/08/2018 3:29 AM PDT Nurse Progress Note by Jessi Benoit RN at 04/08/18328 Author: Jessi Benoit RN Service: (none) Author Type: Registered Nurse Filed: 04/08/18 0330 Date of Service: 04/08/18328 Status: Signed Clearing Supervisor: Jessi Benoit RN (Registered Nurse) I notified Dr. Lake of another elevated troponin level, no new orders at this time. onver bridget Transaction, Provider Unknown - 04/08/2018 2:41 AM PDT Nurse Progress Note by Jessi Benoit RN at 04/08/18240 Author: Jessi Benoit RN Service: (none) Author Type: Registered Nurse Filed: 04/08/183 Date of Service: 04/08/18240 Status: Signed Clearing Supervisor: Jessi Benoit RN (Registered Nurse) PTT was 87 at 0041, but this was 10 minutes after we started the heparin drip and after the heparin bolus. Dr. Lake aware. Next PTT is 0630. (6 hours after the heparin drip was sta rted). onver bridget Transaction, Provider Unknown - 04/07/2018 11:31 PM PDT Nurse Progress Note by Jessi Benoit RN at 04/07/182330 Author: Jessi Benoit RN Service: (none) Author Type: Registered Nurse Filed: 04/07/182331 Date of Service: 04/07/182330 Status: Signed Clearing Supervisor: Jessi Benoit RN (Registered Nurse) I talked to Dr. Lake and let him know that the pt's troponin came back elevated, no new or ders at this time. onver bridget Transaction, Provider Unknown - 04/07/2018 10:46 PM PDT Nurse Progress Note by Jessi Benoit RN at 04/07/182245 Author: Jessi Benoit RN Service: (none) Author Type: Registered Nurse Filed: 04/07/182245 Date of Service: 04/07/182245 Status: Signed Clearing Supervisor: Jessi Benoit RN (Registered Nurse) Dr. Lake is at the bedside onver bridget Transaction, Provider Unknown - 04/07/2018 9:54 PM PDT Nurse Progress Note by Jessi Benoit RN at 04/07/182153 Author: Jessi Benoit RN Service: (none) Author Type: Registered Nurse Filed: 04/07/182154 Date of Service: 04/07/182153 Status: Signed Clearing Supervisor: Jessi Benoit RN (Registered Nurse) I talked to Dr. Lake and let him know that the pt is here, he is aware. onver bridget Transaction, Provider Unknown - 04/07/2018 9:37 PM PDT Nurse Progress Note by Jessi Benoit RN at 04/07/182136 Author: Jessi Benoit RN Service: (none) Author Type: Registered Nurse Filed: 04/07/182137 Date of Service: 04/07/182136 Status: Signed Clearing Supervisor: Jessi Benoit RN (Registered Nurse) Pt ambulated to the bathroom and tolerated well docume nted in this encounter H&P Notes Wade Lake DO - 04/07/2018 10:24 PM PDT H&P by Wade Lake DO at 04/07/182223 Author: Wade Lake DO Service: Hospitalist Author Type: Physician Filed: 04/08/18 0041 Date of Service: 04/07/182223 Status: Addendum Clearing Supervisor: Wade Lake DO (Physician) Related Notes: Original Note by Wade Lake DO (Physician) filed at 04/07/18 7312 HISTORY AND PHYSICAL for Bayron Ulloa male 1935 82 y.o. who is being admitted to the adult hospitalist service at [facility]. Chief complaint: chest pain History of present illness: came to ED at [facility] in [place], [place] today mckay use of sudden onset chest pain at 5 PM today. He was eating dinner in his home with spouse a nd had just finished the meal and developed uncomfortable burning sensation in L-central precious st. It radiated into both arms. There was no associated dyspnea, nausea, or sweats. 911 was called and EMS gave him nitro x3, which did not affect the symptoms. He further got nitro pa missael in ED and also heartburn medication. His symptoms improved at that point. Now the sympto ms are gone. ED noted the patient's cardiac history and requested transfer to [facility] for further workup. The patient has had multiple UT's in the past and had 2 CABG's, as well. He used to follow with Dr Jenkins, who has now retired. He hasn't established care with a new compliance field technician vicky borrego "everything's been going well." He last had heart cath in 2009 for, as the patient describ es, cardiac clearance to get cholecystectomy. I have included some of the cath report here: Exam Date/Time: 10/03/2009 11:30 A Ordering Provider: SWAPNA CARRERA Order Detail: 5410 / / HCL Exam Description: CCL HEART CATH LT RETRO PERC ... INDICATIONS The patient is a very pleasant 73-year-old gentleman with past medical history of coronary artery disease status post a previous coronary artery bypass graft surgery who had a new onset of atrial flutter and fibrillation. He was suspected of having progression of his coronary artery disease and since he cannot undergo a stress test in view of joint problems involving his upper extremities, cardiac catheterization was advised to assess the status of his coronary arteries as well as his bypass grafts. ... CORONARY ANGIOGRAPHY 1. Left main had a mid 40% plaque. 2. The LAD had mild diffuse calcification with mild diffuse disease. The mid segment of the LAD had a discrete 70% stenosis. The first diagonal branch was a small-caliber vessel with a mid 90% stenosis. 3. The ramus intermedius was totally occluded at its ostium. 4. The left circumflex was a very small-caliber vessel with an ostial 99% stenosis. 5. The right coronary artery was totally occluded at its ostium. The mid segment of the RCA was filling via bridging collaterals. 6. The very distal portion of the RCA was filling via collaterals from the distal LAD, visualized upon injection of the RAM graft as well as the [place] artery. 7. Two saphenous vein grafts to the RCA appeared to be totally occluded. 8. The saphenous vein graft to the diagonal or an obtuse marginal branch was totally occluded. 9. Saphenous vein graft to the ramus intermedius was patent without any significantly obstructive stenosis in the ramus intermedius. 10. The RAM to the LAD was patent. The LAD beyond the RAM anastomosis did not have any significantly obstructive stenosis. LEFT VENTRICULOGRAM Left ventriculogram revealed a low normal left ventricular systolic function with ejection fraction of 50% with posterobasal hypokinesis. CONCLUSION 1. Coronary artery and graft disease as discussed above. 2. Low normal left ventricular systolic function, ejection fraction of 50%, with posterobasal hypokinesis. 3. Mildly elevated left ventricular end-diastolic pressure. RECOMMENDATIONS 1. Medical therapy. 2. Aggressive risk factor modification. Review of systems: Constitutional - negative HENT - negative Eyes - negative Respiratory - negative Cardiovascular - as above Gastrointestinal - negative Genitourinary - negative Musculoskeletal - negative Neurological - negative Hematologic - negative Psychiatric - negative Past medical history: Past Medical History Diagnosis Date Coronary artery disease Osteoarthritis Rheumatoid arthritis (HCC) Past surgical history: Past Surgical History Procedure Laterality Date CARDIAC SURGERY CHOLECYSTECTOMY CORONARY ARTERY BYPASS GRAFT HAND SURGERY Home medications: Prior to Admission medications Medication Sig Start Date End Date Taking? Authorizing Provider aspirin 81 MG tablet Take 81 mg by mouth daily. Historical Provider CALCIUM-VITAMIN D PO Take by mouth. Historical Provider Cholecalciferol (VITAMIN D3) 3000 UNITS TABS Take by mouth. Historical Provider citalopram (CELEXA) 20 MG tablet 09/19/15 Historical Provider clopidogrel (PLAVIX) 75 MG tablet 01/14/18 Historical Provider Clopidogrel Bisulfate (PLAVIX PO) Take by mouth. Historical Provider HYDROcodone-acetaminophen (NORCO) 10-325 MG per tablet 09/19/15 Historical Provider isosorbide mononitrate (IMDUR) 30 MG 24 hr tablet 08/14/15 Historical Provider lisinopril (ZESTRIL) 2.5 MG tablet 07/18/15 Historical Provider metoprolol (TOPROL-XL) 50 MG 24 hr tablet 50 mg daily. Take half tablet evening 10/20/15 H istorical Provider nitroGLYCERIN (NITROSTAT) 0.[address] 0.4 mg under the tongue. Historical Pro vider prednisoLONE acetate (PRED FORTE) 1 % ophthalmic suspension 03/20/18 Historical Provider predniSONE (DELTASONE) 5 MG tablet Take two tabs daily for one week then one tab daily for one week then stop 01/26/18 Linnea Gonzalez PA-C predniSONE (DELTASONE) 5 MG tablet Take 1-2 tablets daily with breakfast 03/31/18 CHERELLE Mcrae sulfaSALAzine (AZULFIDINE) 500 MG tablet Take 1 tablet by mouth 2 (two) times daily. 03/31/18 03/31/19 CHERELLE Arechiga zolpidem (AMBIEN) 10 MG tablet 07/31/15 Historical Provider Allergies: Allergies Allergen Reactions Adhesive Tape Other (See Comments) Adhesives in tape. Skin very fragile. Pravastatin Other (See Comments) Myalgias, myositis Family history: History reviewed. No pertinent family history. Social history: History Alcohol Use No History Smoking Status Never Smoker Smokeless Tobacco Current User History Drug Use No Vitals: Vitals: 04/07/18 2138 BP: 177/79 Pulse: 74 Resp: 16 Temp: 98.1 F (36.7 C) TempSrc: Oral SpO2: 95% Weight: 81.2 kg (179 lb) Height: 1.778 m (5' 10") Physical exam: Well-appearing, AOx3, no acute distress HENT: atraumatic, mucus membranes moist, conjunctivae normal, neck supple, no JVD Heart: Regular rate and rhythm, no murmur, radial and dorsalis pedis pulses are palpable an d equal Lungs: Clear to auscultation without wheezes, rales, rhonci, good effort, no respiratory di stress, no accessory muscle use Abdomen: Soft, nontender, nondistended, +bowel sounds in all 4 quadrants Extremities: No cyanosis, clubbing, tenderness, or edema 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 1, hemoglobin 14.5, hematocrit 42.7, platelets 213. Glucose 180, BUN 24, creatinine 1.14, s odium 135, potassium 4.2, chloride 100, carbon dioxide 28, calcium 9.5, total protein 6.2, a lbumin 3.9, total bilirubin 0.9, AST 17, ALT 19, alk phos 67. Troponin less than 0.01. Chest x-ray was negative. EKG showed a normal sinus rhythm with a ventricular rate of about 71 with a first-degree AV block with a normal axis, narrow QRS, Q waves in V1 and inverted T waves in V1, 2, and 3. Assessment/Plan: Chest pain in the setting of HTN and known CAD and hx UT's & CABG's Complex cardiac history with significant CAD. Admit to obs on telemetry, repeat cardiac enz ymes x2, repeat EKG in AM. Ordering a stress test doesn't seem beneficial at this time as th e symptoms are atypical and we know the patient's coronary anatomy pretty well from cath in 2009. Consider consultation with cardiology, Dr Javier, in the AM to discuss further. This could be GI pain which could be caused by prednisone therapy. I will start BID Protoni x and PRN Maalox. Addendum: Repeat troponin elevated at 2.[address] Scales I started IV heparin infusion I DC'd Protonix I continued nitro paste started in [place] NPO after midnight Fatigue Nonspecific. Check echo for development of ischemic (or other) cardiomyopathy. Check TSH. C ould be related to RA, too. RA Currently being treated with prednisone 10 mg/day. Recently started on sulfasalazine. Can't take plaquenil because of retinal complication. Plan to wean prednisone in near future if s ulfasalazine is working. Date of admission: 04/07/2018 Code Status: Full code Disposition: Admit to obs Problem list: Principal Problem: Chest pain Active Problems: Rheumatoid arthritis of multiple sites with negative rheumatoid factor (HCC) History of acute myocardial infarction Hypertension CAD (coronary artery disease) Shaun Lake, DO 04/07/2018 10:24 PM documented in this enc ounter Consult Notes Luis Tse MD - 04/11/2018 9:44 AM PDTFormatting of this note might be differ ent from the original. Consult* by Luis Tse MD at 04/11/18 0944 Author: Luis Tse MD Service: Gastroenterology Author Type: Physician Filed: 04/11/18 1000 Date of Service: 04/11/1844 Status: Signed Clearing Supervisor: Luis Tse MD (Physician) [facility] Service: Gastroenterology Initial Consult Note Date of Admission: 04/07/2018 Reason for Consultation: Melena Requesting Physician: Hospitalist History Obtained From: patient, chart review CHIEF COMPLAINT: Chest pain HISTORY OF PRESENT ILLNESS The patient is 82 y.o. male with significant past medical history of CAD with history of CA BG, RA ( on Prednisone ) who initially presented to ED at [facility] in [place], [place] today because of sudden onset chest pain at 5 PM on the day of admission. He was eatin g dinner in his home with spouse and had just finished the meal and developed uncomfortable burning sensation in L-central chest. It radiated into both arms. There was no associated dy spnea, nausea, or sweats. 911 was called and EMS gave him nitro x3, which did not affect the symptoms. He further got nitro paste in ED and also heartburn medication. His symptoms impr ese at that point. ED noted the patient's cardiac history and requested transfer to [facility] for further workup. The patient has had multiple UT's in the past and had 2 CABG's, as well. He hasn't establis hed care with a new compliance field technician because "everything's been going well." He last had heart c ath in 2009 for, as the patient describes, cardiac clearance to get cholecystectomy. After a dmission, further work up revealed he has non ST elevation UT. He was started on dual antipl atelet agents. He started having small amount of dark blood mixed with stool once 2 night ag o and 2 more episodes of dark stool until 18:00 yesterday. The last BM, the amount of dark b lood was small. He denies having upper or lower abdominal pain. He had normal colonoscopy 5 to 6 years ago. He has never had EGD done.With 3 episodes of dark stool, he denies weakness, lightheadedness. Serial Hb/Hct remains stable REVIEW OF SYSTEMS Review of Systems All other systems reviewed and are negative. Past Medical History Diagnosis Date Coronary artery disease Osteoarthritis Rheumatoid arthritis (HCC) Past Surgical History Procedure Laterality Date CARDIAC SURGERY CHOLECYSTECTOMY CORONARY ARTERY BYPASS GRAFT HAND SURGERY Allergies Allergen Reactions Adhesive Tape Other (See Comments) Adhesives in tape. Skin very fragile. Pravastatin Other (See Comments) Myalgias, myositis Prescriptions Prior to Admission Medication Sig Dispense Refill Last Dose aspirin 81 MG tablet Take 81 mg by mouth daily. Taking Cholecalciferol (VITAMIN D3) 3000 UNITS TABS Take by mouth. Taking clopidogrel (PLAVIX) 75 MG tablet Taking HYDROcodone-acetaminophen (NORCO) 5-325 MG per tablet Take 1 tablet by mouth 2 (two) ti mes daily as needed for Pain. isosorbide mononitrate (IMDUR) 30 MG 24 hr tablet Taking lisinopril (ZESTRIL) 2.5 MG tablet Taking metoprolol (TOPROL-XL) 25 MG 24 hr tablet Take 25 mg by mouth daily. predniSONE (DELTASONE) 5 MG tablet Take 1-2 tablets daily with breakfast (Patient margaret rice differently: Take 10 mg by mouth daily. Take 1-2 tablets daily with breakfast) 60 tablet 2 sulfaSALAzine (AZULFIDINE) 500 MG tablet Take 1 tablet by mouth 2 (two) times daily. 60 tablet 2 Scheduled Medications aspirin 325 mg Oral Daily with breakfast famotidine 20 mg Oral BID isosorbide mononitrate 60 mg Oral Daily lisinopril 2.5 mg Oral Daily metoprolol 50 mg Oral Daily nicotine 1 patch Transdermal Daily pantoprazole 40 mg Intravenous BID AC predniSONE 10 mg Oral Daily with breakfast sulfaSALAzine 500 mg Oral BID Continuous Infusions sodium chloride (IV) 30 mL/hr at 04/09/18 2246 PRN Medications acetaminophen OR acetaminophen, aluminum-magnesium hydroxide-simethicone, calcium carbo keisha, guaiFENesin, hydrALAZINE, HYDROcodone-acetaminophen, LORazepam OR LORazepam, magne sium sulfate OR magnesium sulfate OR magnesium sulfate, nitroGLYCERIN, ondansetron * *OR ondansetron, polyethylene glycol, potassium OR potassium OR potassium OR p otassium chloride OR potassium chloride OR potassium chloride, zolpidem History reviewed. No pertinent family history. History Smoking Status Never Smoker Smokeless Tobacco Current User History Alcohol Use Yes Comment: occasional use PHYSICAL EXAM Vital Signs: BP 142/68 | Pulse 70 | Temp 98.7 F (37.1 C) (Oral) | Resp 20 | Ht 1.778 m (5' 10") | Wt 79.2 kg (174 lb 9.7 oz) | SpO2 96% | BMI 25.05 kg/m Temp: [97.8 F (36.6 C)-98.7 F (37.1 C)] 98.7 F (37.1 C) (04/11 323) BP: (108-148)/(54-75) 142/68 (04/11 805) Heart Rate: [60-79] 70 (04/11 805) Resp: [16-20] 20 (04/11 323) SpO2: [95 %-100 %] 96 % (04/11 323) Weight: [79.2 kg (174 lb 9.7 oz)] 79.2 kg (174 lb 9.7 oz) (04/11 323) Physical Exam Constitutional: He is oriented to person, place, and time. He appears well-developed and we ll-nourished. HENT: Head: Normocephalic and atraumatic. Eyes: Conjunctivae and EOM are normal. Pupils are equal, round, and reactive to light. No s cleral icterus. Neck: Normal range of motion. Neck supple. Cardiovascular: Normal rate and regular rhythm. Pulmonary/Chest: Effort normal and breath sounds normal. No respiratory distress. He has no wheezes. Abdomina/Gl: Soft. Bowel sounds are normal. Musculoskeletal: He exhibits no edema, tenderness or deformity. Neurological: He is alert and oriented to person, place, and time. Skin: Skin is warm and dry. No rash noted. No erythema. No pallor. DATA CBC: Lab Results Component Value Date WBC 8.72 04/11/2018 RBC 4.22 04/11/2018 HGB 13.2 04/11/2018 HCT 38.2 (L) 04/11/2018 MCV 90.5 04/11/2018 MCH 31.2 04/11/2018 MCHC 34.4 04/11/2018 RDW 45.5 04/11/2018 PLT 157 04/11/2018 MPV 8.8 04/11/2018 DIFFTYPE AUTOMATED 04/11/2018 CMP: Lab Results Component Value Date NA 142 04/11/2018 K 3.6 04/11/2018 CL 106 04/11/2018 CO2 30 04/11/2018 ANIONGAP 10 04/11/2018 GLUF 122 (H) 04/11/2018 BUN 13 04/11/2018 CREATININE 0.9 04/11/2018 BCR 14 04/11/2018 CA 9.4 04/11/2018 PROT 5.7 (L) 04/11/2018 ALB 3.0 (L) 04/11/2018 GLOB 2.7 04/11/2018 BILITOT 0.8 04/11/2018 ALP 59 04/11/2018 AST 80 (H) 04/11/2018 ALT 59 04/11/2018 EGFR >60 04/11/2018 PT/INR: Lab Results Component Value Date INR 1.0 04/08/2018 PTT: Lab Results Component Value Date APTT 32 04/10/2018 [APTT} PROBLEM LIST Principal Problem: NSTEMI (non-ST elevated myocardial infarction) (HCC) Active Problems: Rheumatoid arthritis of multiple sites with negative rheumatoid factor (HCC) History of acute myocardial infarction Hypertension CAD (coronary artery disease) Fatigue GI (gastrointestinal bleed) ASSESSMENT & PLAN Melena status post dual antiplatelet therapy most likely mucosal related damage from antipl atelet agents NSTEMI Recommendation Continue empiric IV PPI continuous drip x 48 hours then bid Could continue baby aspirin and resume other antiplatelet agents in 48 hours if hemodynamic is stable and stable Hb/Hct. Endoscopy evaluation only if he has active GI bleeding or having significant drop in Hb/Hct . The patient agreed with this plan. Code Status: Full Code Primary Care Physician: STANISLAW HARPER Thank you for allowing me to participate in the care of this patient. LUIS TSE MD 04/11/2018 Ry Arce MD - 04/08/2018 8:10 AM PDT Consult* by Ry Scales MD at 04/08/18 0810 Author: Ry Scales MD Service: Cardiology Author Type: Physician Filed: 04/08/182011 Date of Service: 04/08/18809 Status: Signed Clearing Supervisor: Ry Scales MD (Physician) [facility] Service: Cardiology Initial Consult Note Name of Assisted Sales Representative: Ry Scales MD Date of Admission: 04/07/2018 Reason for Consultation: Chest pain Requesting Physician: Dr. Herring History Obtained From: patient ASSESSMENT & PLAN NSTEMI Non sustained VT Hx of CABGX5 in 1998, last cath 2009 showed patent RAM to LAD, SVG to Ramus, known occlude d SVG X2 to RCA and SVG to D1 Preserved LV systolic function with posterior lateral wall hypokinesis Marked first degree AVB HTN HLD Rheumatoid arthritis He will benefit from coronary angiogram to define anatomy, discussed coronary angiogram ris ks, benefits and alternatives to patient and family. Discussed risks including but not limit ed to , UT, CPR, emergency surgery, vessel injury, bleeding, infection, renal injury et c. He consents to procedure verbally expressing understanding of risks. Continue heparin drip. Continue ASA, Plavix, Lisinopril, Imdur, Metoprolol Titrate BP medication for better BP control Supportive care. Monitor electrolytes, cr, H/H, weights, I/Os Close monitoring for signs of respiratory distress. CHIEF COMPLAINT: Chest pain HISTORY OF PRESENT ILLNESS: 82 yr old male with hx of CABG X5 in [facility] (RAM to LAD, SVG to Ramus, SVG to RCA X2 , SVG to Diag)1998 and since underwent two angiograms last in 2009 showed occluded SVG X2 to RCA, SVG to Diag, SVG to Ramus and RAM to LAD are patent and is treated medically since no significant angina symptoms followed with Dr. Jenkins for several years till his retireme nt. Presents to ED at [facility] in [place], [place] today because of sudden onset c hest pain at 5 PM yesterday. He was eating dinner in his home with spouse and had just finis hed the meal and developed uncomfortable burning sensation in L-central chest. It radiated i nto both arms. There was no associated dyspnea, nausea, or sweats. 911 was called and EMS ga ve him nitro x3, which did not affect the symptoms. He further got nitro paste in ED and als o heartburn medication. His symptoms improved at that point. Now the symptoms are gone. ED n oted the patient's cardiac history and requested transfer to [facility] for further workup. He i s currently chest pain free, he was told after angiogram in 2009 that major arteries are pat ent and small vessel disease is present and recommended only medical management. He denies a ny orthopnea, PND, edema, syncope, palpitations. REVIEW OF SYSTEMS Negative except for pertinent items noted in HPI. PAST MEDICAL & SURGICAL HISTORY Past Medical History Diagnosis Date Coronary artery disease Osteoarthritis Rheumatoid arthritis (HCC) Past Surgical History Procedure Laterality Date CARDIAC SURGERY CHOLECYSTECTOMY CORONARY ARTERY BYPASS GRAFT HAND SURGERY MEDICATIONS Home Medications Prescriptions Prior to Admission Medication Sig Dispense Refill Last Dose aspirin 81 MG tablet Take 81 mg by mouth daily. Taking Cholecalciferol (VITAMIN D3) 3000 UNITS TABS Take by mouth. Taking clopidogrel (PLAVIX) 75 MG tablet Taking HYDROcodone-acetaminophen (NORCO) 5-325 MG per tablet Take 1 tablet by mouth 2 (two) ti mes daily as needed for Pain. isosorbide mononitrate (IMDUR) 30 MG 24 hr tablet Taking lisinopril (ZESTRIL) 2.5 MG tablet Taking metoprolol (TOPROL-XL) 25 MG 24 hr tablet Take 25 mg by mouth daily. predniSONE (DELTASONE) 5 MG tablet Take 1-2 tablets daily with breakfast (Patient margaret rice differently: Take 10 mg by mouth daily. Take 1-2 tablets daily with breakfast) 60 tablet 2 sulfaSALAzine (AZULFIDINE) 500 MG tablet Take 1 tablet by mouth 2 (two) times daily. 60 tablet 2 Inhospital Medications aspirin 325 mg Oral Daily with breakfast clopidogrel 75 mg Oral Daily heparin (porcine) 5000 unit/0.5mL 5,000 Units Subcutaneous 3 times per day isosorbide mononitrate 30 mg Oral Daily lisinopril 2.5 mg Oral Daily metoprolol 25 mg Oral Daily nitroGLYCERIN 0.5 inch Topical Q6H predniSONE 10 mg Oral Daily with breakfast sulfaSALAzine 500 mg Oral BID heparin 50 units/mL 12 Units/kg/hr (04/08/18 0031) Allergies Allergies Allergen Reactions Adhesive Tape Other (See Comments) Adhesives in tape. Skin very fragile. Pravastatin Other (See Comments) Myalgias, myositis FAMILY HISTORY History reviewed. No pertinent family history. SOCIAL HISTORY Social History Social History Marital status: Spouse name: N/A Number of children: N/A Years of education: N/A Occupational History Not on file. Social History Main Topics Smoking status: Never Smoker Smokeless tobacco: Current User Alcohol use Yes Comment: occasional use Drug use: No Sexual activity: Not on file Other Topics Concern Not on file Social History Narrative No narrative on file PHYSICAL EXAM Vital Signs: BP 150/71 (BP Location: Right upper arm) | Pulse 63 | Temp 97.5 F (36.4 C) (Oral) | Resp 20 | Ht 1.778 m (5' 10") | Wt 81.2 kg (179 lb) | SpO2 95% | BMI 25.68 kg/m No intake or output data in the 24 hours ending 04/08/18 0810 Constitutional: Well-developed. Neck: No JVD present. No thyromegaly present. Cardiovascular: Regular rhythm, S1 normal and S2 normal. +ve systolic murmur heard. Pulses:+2 B/L Pulmonary/Chest: Effort normal and breath sounds normal. No wheezes. No rales. Abdominal: Soft. No tenderness. Musculoskeletal: No edema. Neurological: Alert. No cranial nerve deficit. Skin: Warm and dry. DATA Recent Labs Lab 04/08/18 0231 NA 141 K 3.6 CO2 30 BUN 21 CREATININE 1.0 Recent Labs Lab 04/08/18 0231 04/07/18 2232 TROPONINI 13.7* 2.36* Recent Labs Lab 04/08/18 0231 WBC 10.32 HGB 13.6 HCT 39.8 MCV 89.9 PLT 172 EKG: Last Echo: Impression 1. This was a technically difficult study with suboptimal views. 2. Overall left ventricular systolic function is low-normal with, an EF between 50 - 55 %. 3. Wall motion abnormalities suggestive of CAD noted, posterior-lateral wall hypokinesis no andrae. Last cath: CORONARY ANGIOGRAPHY 1. Left main had a mid 40% plaque. 2. The LAD had mild diffuse calcification with mild diffuse disease. The mid segment of the LAD had a discrete 70% stenosis. The first diagonal branch was a small-caliber vessel with a mid 90% stenosis. 3. The ramus intermedius was totally occluded at its ostium. 4. The left circumflex was a very small-caliber vessel with an ostial 99% stenosis. 5. The right coronary artery was totally occluded at its ostium. The mid segment of the RCA was filling via bridging collaterals. 6. The very distal portion of the RCA was filling via collaterals from the distal LAD, visualized upon injection of the RAM graft as well as the [place] artery. 7. Two saphenous vein grafts to the RCA appeared to be totally occluded. 8. The saphenous vein graft to the diagonal or an obtuse marginal branch was totally occluded. 9. Saphenous vein graft to the ramus intermedius was patent without any significantly obstructive stenosis in the ramus intermedius. 10. The RAM to the LAD was patent. The LAD beyond the RAM anastomosis did not have any significantly obstructive stenosis. LEFT VENTRICULOGRAM Left ventriculogram revealed a low normal left ventricular systolic function with ejection fraction of 50% with posterobasal hypokinesis. CONCLUSION 1. Coronary artery and graft disease as discussed above. 2. Low normal left ventricular systolic function, ejection fraction of 50%, with posterobasal hypokinesis. 3. Mildly elevated left ventricular end-diastolic pressure. RECOMMENDATIONS 1. Medical therapy. 2. Aggressive risk factor modification. Thank you for allowing me to participate in the care of this patient. Code Status: Full Code Primary Care Physician: STANISLAW Scales MD documented in t his encounter Miscellaneous Notes Plan of Care - Conversion Transaction, Provider Unknown - 04/13/2018 4:19 AM PDT Plan of Care by Vicky Lake RN at 04/13/18 0419 Author: Vicky Lake RN Service: (none) Author Type: Registered Nurse Filed: 04/13/18 0652 Date of Service: 04/13/18418 Status: Addendum Clearing Supervisor: Vicky R Brown, RN (Registered Nurse) Related Notes: Original Note by Vicky Lake RN (Registered Nurse) filed at 04/13/18 04 19 Problem: Safety Goal: Patient will be injury free during hospitalization Assess and monitor vitals signs, neurological status including level of consciousness and o rientation. Assess patient's risk for falls and implement fall prevention plan of care and i nterventions per hospital policy. Ensure arm band on, uncluttered walking paths in room, adequate room lighting, call light a nd overbed table within reach, bed in low position, wheels locked, side rails up per policy, and non-skid footwear provided. Outcome: Progressing Fall prevention measures in place per protocol No s/s of bleeding noted this shift. Pt reports that he slept most of shift. Up in chair th is morning denies pain. Potassium replacement this morning per protocol. lan o f Care - Conversion Transaction, Provider Unknown - 04/12/2018 8:58 AM PDTFormatting of thi s note might be different from the original. Plan of Care by Say De Los Santos RN at 04/12/18857 Author: Say De Los Santos RN Service: (none) Author Type: Registered Nurse Filed: 04/12/18857 Date of Service: 04/12/18857 Status: Signed Clearing Supervisor: Say De Los Santos RN (Registered Nurse) Problem: Safety Goal: Patient will be injury free during hospitalization Assess and monitor vitals signs, neurological status including level of consciousness and o rientation. Assess patient's risk for falls and implement fall prevention plan of care and i nterventions per hospital policy. Ensure arm band on, uncluttered walking paths in room, adequate room lighting, call light a nd overbed table within reach, bed in low position, wheels locked, side rails up per policy, and non-skid footwear provided. Outcome: Progressing Patient up ad donna in room, maintains safe environment and habits, calls for assistance as n eeded. lan o f Care - Conversion Transaction, Provider Unknown - 04/12/2018 3:28 AM PDTFormatting of thi s note might be different from the original. Plan of Care by Vicky Lake RN at 04/12/18327 Author: Vicky Lake RN Service: (none) Author Type: Registered Nurse Filed: 04/12/18327 Date of Service: 04/12/18327 Status: Signed Clearing Supervisor: Vicky Lake RN (Registered Nurse) Problem: Pain Goal: Patient's pain/discomfort is manageable Assess and monitor patient's pain using appropriate pain scale. Collaborate with interdisci plinary team and initiate plan and interventions as ordered. Re-assess patient's pain level approximately 1-2 hours after pain management intervention. Premedicate as needed. Outcome: Progressing Pt able to verbalize pain on 0-10 scale. lan o f Care - Conversion Transaction, Provider Unknown - 04/11/2018 1:08 PM PDTFormatting of thi s note might be different from the original. Plan of Care by Say De Los Santos RN at 04/11/181307 Author: Say De Los Santos RN Service: (none) Author Type: Registered Nurse Filed: 04/11/181307 Date of Service: 04/11/181307 Status: Signed Clearing Supervisor: Say De Los Santos RN (Registered Nurse) Problem: Pain Goal: Patient's pain/discomfort is manageable Assess and monitor patient's pain using appropriate pain scale. Collaborate with interdisci plinary team and initiate plan and interventions as ordered. Re-assess patient's pain level approximately 1-2 hours after pain management intervention. Premedicate as needed. Outcome: Progressing Patient with chronic back and shoulder pain, given prn medications as patient needs providi ng adequate pain control. lan o f Care - Conversion Transaction, Provider Unknown - 04/11/2018 12:05 AM PDTFormatting of thi s note might be different from the original. Plan of Care by Vicky Lake RN at 04/11/184 Author: Vicky Lake RN Service: (none) Author Type: Registered Nurse Filed: 04/11/184 Date of Service: 04/11/184 Status: Signed Clearing Supervisor: Vicky Lake RN (Registered Nurse) Problem: Safety Goal: Patient will be injury free during hospitalization Assess and monitor vitals signs, neurological status including level of consciousness and o rientation. Assess patient's risk for falls and implement fall prevention plan of care and i nterventions per hospital policy. Ensure arm band on, uncluttered walking paths in room, adequate room lighting, call light a nd overbed table within reach, bed in low position, wheels locked, side rails up per policy, and non-skid footwear provided. Outcome: Progressing Fall prevention measures in place per protocol Problem: UT Day 1 - UT Management Goal: Pain level Minimal reported or demonstrated pain related to myocardial infarction. Intervention: Assess anginal symptoms Pt denies chest pain at this time. Will continue to assess lan o f Care - Conversion Transaction, Provider Unknown - 04/10/2018 4:03 PM PDTFormatting of thi s note might be different from the original. Plan of Care by Cary Gardiner RN at 04/10/18 1603 Author: Cary Gardiner RN Service: (none) Author Type: Registered Nurse Filed: 04/10/18 160 Date of Service: 04/10/181602 Status: Signed Clearing Supervisor: Cary Gardiner RN (Registered Nurse) Problem: Safety Goal: Patient will be injury free during hospitalization Assess and monitor vitals signs, neurological status including level of consciousness and o rientation. Assess patient's risk for falls and implement fall prevention plan of care and i nterventions per hospital policy. Ensure arm band on, uncluttered walking paths in room, adequate room lighting, call light a nd overbed table within reach, bed in low position, wheels locked, side rails up per policy, and non-skid footwear provided. Outcome: Progressing Safety checks performed per policy. Pt independent with ADL's. Assistance provided PRN. Occ ult blood positive, will continue to monitor for s/s of bleeding lan o f Care - Conversion Transaction, Provider Unknown - 04/09/2018 11:13 PM PDTFormatting of thi s note might be different from the original. Plan of Care by Vicky Merino RN at 04/09/182312 Author: Vicky Merino RN Service: (none) Author Type: Registered Nurse Filed: 04/09/182312 Date of Service: 04/09/182312 Status: Signed Clearing Supervisor: Vicky Merino RN (Registered Nurse) Problem: Safety Goal: Patient will be injury free during hospitalization Assess and monitor vitals signs, neurological status including level of consciousness and o rientation. Assess patient's risk for falls and implement fall prevention plan of care and i nterventions per hospital policy. Ensure arm band on, uncluttered walking paths in room, adequate room lighting, call light a nd overbed table within reach, bed in low position, wheels locked, side rails up per policy, and non-skid footwear provided. Outcome: Progressing Pt is alert and oriented and ambulates well in room. Agrees to call for help if needed. All cares met at this time. lan o f Care - Conversion Transaction, Provider Unknown - 04/09/2018 10:29 AM PDTFormatting of thi s note might be different from the original. Plan of Care by Pily Sloan RN at 04/09/18 102 Author: Pily Sloan RN Service: (none) Author Type: Registered Nurse Filed: 04/09/18 1030 Date of Service: 04/09/181028 Status: Signed Clearing Supervisor: Pily Sloan RN (Registered Nurse) UT Day 1 - UT Management Hemodynamically stable Progressing No life threatening arrhythmia Progressing Pain level Progressing Safety Patient will be injury free during hospitalization Progressing ADL needs met, pain manageable at this time. Patient hemodynamically stable and remains ingrid e of CP/SOB. Will continue to monitor. PILY SLOAN RN lan o f Care - Conversion Transaction, Provider Unknown - 04/09/2018 4:42 AM PDTFormatting of thi s note might be different from the original. Plan of Care by Gwen Yin RN at 04/09/18 1702 Author: Gwen Yin RN Service: (none) Author Type: Registered Nurse Filed: 04/09/18441 Date of Service: 04/09/18441 Status: Signed Clearing Supervisor: Gwen Yin RN (Registered Nurse) Problem: Safety Goal: Patient will be injury free during hospitalization Assess and monitor vitals signs, neurological status including level of consciousness and o rientation. Assess patient's risk for falls and implement fall prevention plan of care and i nterventions per hospital policy. Ensure arm band on, uncluttered walking paths in room, adequate room lighting, call light a nd overbed table within reach, bed in low position, wheels locked, side rails up per policy, and non-skid footwear provided. Outcome: Progressing Pt calls appropriately and is aware of his limitations, no falls or other acute injuries ye t during this hospital stay. lan o f Care - Conversion Transaction, Provider Unknown - 04/08/2018 4:53 PM PDTFormatting of thi s note might be different from the original. Plan of Care by Kandi Godinez RN at 04/08/181652 Author: Kandi Godinez RN Service: (none) Author Type: Registered Nurse Filed: 04/08/181654 Date of Service: 04/08/181652 Status: Signed Clearing Supervisor: Kandi Godinez RN (Registered Nurse) Straight cath for 550 ml. R groin mynx, soft, no signs of bleeding. Heparin gtt and integre angel gtt running. Kandi Godinez RN Safety Patient will be injury free during hospitalization Progressing p Not e - Guilherme, Chasity Bunn MD - 04/08/2018 12:56 PM PDTFormatting of this note might be di fferent from the original. Brief Op Note by Chasity Warren MD at 04/08/18 7478 Author: Chasity Warren MD Service: Cardiology Author Type: Physician Filed: 04/08/18 9151 Date of Service: 04/08/18 6126 Status: Signed Clearing Supervisor: Chasity Warren MD (Physician) [facility] Service: Cardiology Brief Op Note Results LM mild LAD severe proximal 75-89%, 70% mid, 80% D1. Patent RAM to LAD Ramus 100% ostium. 99% distal SVG to Ramus with long segment of high clot burden extending to Ramus post anastomosis. 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 Recommend - Currently chest pain free, hemodynamically stable - PCI carry high risk for distal embolization, vessel closure and no reflow given very high thrombus burden - Heparin and integrellin drips - Continue ASA, plavix, toprol, imdur - H/O intolerance to statins - Will consider repeat angiogram in 2-3 days to assess for any decrease in thrombus burden and possible PCI SVG to Ramus Chasity Warren MD 04/08/2018 lan of Care - Conversion Transaction, Provider Unknown - 04/08/2018 7:15 AM PDT Plan of Care by Elisabeth Rueda RN at 04/08/18714 Author: Elisabeth Rueda RN Service: (none) Author Type: Registered Nurse Filed: 04/08/18 1058 Date of Service: 04/08/18714 Status: Signed Clearing Supervisor: Elisabeth Rueda RN (Registered Nurse) Problem: UT Day 1 - UT Management Goal: Hemodynamically stable Outcome: Progressing Patient has Heparin gtt infusing and Nitro Paste to chest. Hand off given at shift change julio césar Bowen RN. Goal: No life threatening arrhythmia Outcome: Progressing Patient's tele rhythm is NSR with 1st degree AV Block. No arrhythmias noted overnight. Goal: Pain level Minimal reported or demonstrated pain related to myocardial infarction. Outcome: Progressing Patient denies any chest pain or associated symptoms. Patient educated to notify RN of new or worsening symptoms, patient agreeable. Problem: UT Day 1 - Education/Support Goal: Patient aware of UT and rule-out UT process Outcome: Progressing Patient updated on plan of care today. All questions answered and needs addressed. lan o f Care - Conversion Transaction, Provider Unknown - 04/07/2018 10:00 PM PDTFormatting of thi s note might be different from the original. Plan of Care by Jessi Benoit RN at 04/07/182199 Author: Jessi Benoit RN Service: (none) Author Type: Registered Nurse Filed: 04/07/182199 Date of Service: 04/07/182199 Status: Signed Clearing Supervisor: Jessi Benoit RN (Registered Nurse) Problem: Safety Goal: Patient will be injury free during hospitalization Assess and monitor vitals signs, neurological status including level of consciousness and o rientation. Assess patient's risk for falls and implement fall prevention plan of care and i nterventions per hospital policy. Ensure arm band on, uncluttered walking paths in room, adequate room lighting, call light a nd overbed table within reach, bed in low position, wheels locked, side rails up per policy, and non-skid footwear provided. Outcome: Progressing Bed in lowest position, wheels locked, call light in reach docume nted in this encounter Plan of Treatment +--------+---------+ + + + | Date | Type | Specialty | Care Team | Description | +--------+---------+ + + + | 08/23/ | Office | Cardiology | Andrade Hobbs, | | | 2019 | Visit | | MD Curtis ESPARZA | | | | | | [place] | | | | | | [address] | | | | | | | | +--------+---------+ + + + documented as of this encounter Procedures + +--------+ + + + | Procedure Name | Priori | Date/Time | Associated Diagnosis | Comments | | | ty | | | | + +--------+ + + + | POTASSIUM | Routin | 04/13/2018 | | Results for this | | | e | 9:14 AM | | procedure are in the | | | | PDT | | results section. | + +--------+ + + + | EXTERNAL LAB: CBC | Routin | 04/13/2018 | | Results for this | | | e | 4:01 AM | | procedure are in the | | | | PDT | | results section. | + +--------+ + + + | PHOSPHORUS | Routin | 04/13/2018 | | Results for this | | | e | 4:01 AM | | procedure are in the | | | | PDT | | results section. | + +--------+ + + + | MAGNESIUM | Routin | 04/13/2018 | | Results for this | | | e | 4:01 AM | | procedure are in the | | | | PDT | | results section. | + +--------+ + + + | COMPREHENSIVE | Routin | 04/13/2018 | | Results for this | | METABOLIC PANEL | e | 4:01 AM | | procedure are in the | | | | PDT | | results section. | + +--------+ + + + | EXTERNAL LAB: CBC | Routin | 04/12/2018 | | Results for this | | | e | 4:26 AM | | procedure are in the | | | | PDT | | results section. | + +--------+ + + + | PHOSPHORUS | Routin | 04/12/2018 | | Results for this | | | e | 4:26 AM | | procedure are in the | | | | PDT | | results section. | + +--------+ + + + | MAGNESIUM | Routin | 04/12/2018 | | Results for this | | | e | 4:26 AM | | procedure are in the | | | | PDT | | results section. | + +--------+ + + + | COMPREHENSIVE | Routin | 04/12/2018 | | Results for this | | METABOLIC PANEL | e | 4:26 AM | | procedure are in the | | | | PDT | | results section. | + +--------+ + + + | POTASSIUM | Routin | 04/11/2018 | | Results for this | | | e | 9:18 AM | | procedure are in the | | | | PDT | | results section. | + +--------+ + + + | EXTERNAL LAB: CBC | Routin | 04/11/2018 | | Results for this | | | e | 4:18 AM | | procedure are in the | | | | PDT | | results section. | + +--------+ + + + | PHOSPHORUS | Routin | 04/11/2018 | | Results for this | | | e | 4:18 AM | | procedure are in the | | | | PDT | | results section. | + +--------+ + + + | MAGNESIUM | Routin | 04/11/2018 | | Results for this | | | e | 4:18 AM | | procedure are in the | | | | PDT | | results section. | + +--------+ + + + | COMPREHENSIVE | Routin | 04/11/2018 | | Results for this | | METABOLIC PANEL | e | 4:18 AM | | procedure are in the | | | | PDT | | results section. | + +--------+ + + + | HEMOGLOBIN AND | Routin | 04/10/2018 | | Results for this | | HEMATOCRIT | e | 9:15 PM | | procedure are in the | | | | PDT | | results section. | + +--------+ + + + | HEMOGLOBIN AND | Routin | 04/10/2018 | | Results for this | | HEMATOCRIT | e | 2:51 PM | | procedure are in the | | | | PDT | | results section. | + +--------+ + + + | PTT | Routin | 04/10/2018 | | Results for this | | | e | 11:19 AM | | procedure are in the | | | | PDT | | results section. | + +--------+ + + + | EXTERNAL LAB: OCCULT | DEANGELO | 04/10/2018 | | Results for this | | BLOOD, SCREENING | | 10:48 AM | | procedure are in the | | | | PDT | | results section. | + +--------+ + + + | PTT | Routin | 04/10/2018 | | Results for this | | | e | 4:16 AM | | procedure are in the | | | | PDT | | results section. | + +--------+ + + + | CBC NO DIFFERENTIAL | Routin | 04/10/2018 | | Results for this | | | e | 4:16 AM | | procedure are in the | | | | PDT | | results section. | + +--------+ + + + | PHOSPHORUS | Routin | 04/10/2018 | | Results for this | | | e | 4:16 AM | | procedure are in the | | | | PDT | | results section. | + +--------+ + + + | B TYPE NATRIURETIC | Routin | 04/10/2018 | | Results for this | | PEPTIDE | e | 4:16 AM | | procedure are in the | | | | PDT | | results section. | + +--------+ + + + | MAGNESIUM | Routin | 04/10/2018 | | Results for this | | | e | 4:16 AM | | procedure are in the | | | | PDT | | results section. | + +--------+ + + + | COMPREHENSIVE | Routin | 04/10/2018 | | Results for this | | METABOLIC PANEL | e | 4:16 AM | | procedure are in the | | | | PDT | | results section. | + +--------+ + + + | PTT | Routin | 04/09/2018 | | Results for this | | | e | 9:34 PM | | procedure are in the | | | | PDT | | results section. | + +--------+ + + + | PTT | Routin | 04/09/2018 | | Results for this | | | e | 3:28 PM | | procedure are in the | | | | PDT | | results section. | + +--------+ + + + | POTASSIUM | Routin | 04/09/2018 | | Results for this | | | e | 3:28 PM | | procedure are in the | | | | PDT | | results section. | + +--------+ + + + | POTASSIUM | Routin | 04/09/2018 | | Results for this | | | e | 11:50 AM | | procedure are in the | | | | PDT | | results section. | + +--------+ + + + | PTT | Routin | 04/09/2018 | | Results for this | | | e | 9:15 AM | | procedure are in the | | | | PDT | | results section. | + +--------+ + + + | EXTERNAL LAB: CBC | Routin | 04/09/2018 | | Results for this | | | e | 2:45 AM | | procedure are in the | | | | PDT | | results section. | + +--------+ + + + | PTT | Routin | 04/09/2018 | | Results for this | | | e | 2:45 AM | | procedure are in the | | | | PDT | | results section. | + +--------+ + + + | PHOSPHORUS | Routin | 04/09/2018 | | Results for this | | | e | 2:45 AM | | procedure are in the | | | | PDT | | results section. | + +--------+ + + + | B TYPE NATRIURETIC | Routin | 04/09/2018 | | Results for this | | PEPTIDE | e | 2:45 AM | | procedure are in the | | | | PDT | | results section. | + +--------+ + + + | MAGNESIUM | Routin | 04/09/2018 | | Results for this | | | e | 2:45 AM | | procedure are in the | | | | PDT | | results section. | + +--------+ + + + | BASIC METABOLIC | Routin | 04/09/2018 | | Results for this | | PANEL | e | 2:45 AM | | procedure are in the | | | | PDT | | results section. | + +--------+ + + + | PTT | Routin | 04/08/2018 | | Results for this | | | e | 5:55 PM | | procedure are in the | | | | PDT | | results section. | + +--------+ + + + | CV CARDIAC PROCEDURE | Routin | 04/08/2018 | | Results for this | | | e | 12:45 PM | | procedure are in the | | | | PDT | | results section. | + +--------+ + + + | ACTIVATED CLOTTING | Routin | 04/08/2018 | | Results for this | | TIME | e | 11:42 AM | | procedure are in the | | | | PDT | | results section. | + +--------+ + + + | ACTIVATED CLOTTING | Routin | 04/08/2018 | | Results for this | | TIME | e | 11:30 AM | | procedure are in the | | | | PDT | | results section. | + +--------+ + + + | ACTIVATED CLOTTING | Routin | 04/08/2018 | | Results for this | | TIME | e | 11:19 AM | | procedure are in the | | | | PDT | | results section. | + +--------+ + + + | ECHO COMPLETE | Routin | 04/08/2018 | | Results for this | | | e | 8:10 AM | | procedure are in the | | | | PDT | | results section. | + +--------+ + + + | PTT | Routin | 04/08/2018 | | Results for this | | | e | 6:35 AM | | procedure are in the | | | | PDT | | results section. | + +--------+ + + + | ECG 12 LEAD | Routin | 04/08/2018 | | Results for this | | | e | 4:00 AM | | procedure are in the | | | | PDT | | results section. | + +--------+ + + + | EXTERNAL LAB: CBC | Routin | 04/08/2018 | | Results for this | | | e | 2:31 AM | | procedure are in the | | | | PDT | | results section. | + +--------+ + + + | TROPONIN I | Routin | 04/08/2018 | | Results for this | | | e | 2:31 AM | | procedure are in the | | | | PDT | | results section. | + +--------+ + + + | TSH | Routin | 04/08/2018 | | Results for this | | | e | 2:31 AM | | procedure are in the | | | | PDT | | results section. | + +--------+ + + + | B TYPE NATRIURETIC | Routin | 04/08/2018 | | Results for this | | PEPTIDE | e | 2:31 AM | | procedure are in the | | | | PDT | | results section. | + +--------+ + + + | BASIC METABOLIC | Routin | 04/08/2018 | | Results for this | | PANEL | e | 2:31 AM | | procedure are in the | | | | PDT | | results section. | + +--------+ + + + | PTT | Routin | 04/08/2018 | | Results for this | | | e | 12:41 AM | | procedure are in the | | | | PDT | | results section. | + +--------+ + + + | PROTIME INR | Routin | 04/08/2018 | | Results for this | | | e | 12:41 AM | | procedure are in the | | | | PDT | | results section. | + +--------+ + + + | TROPONIN I | Routin | 04/07/2018 | | Results for this | | | e | 10:32 PM | | procedure are in the | | | | PDT | | results section. | + +--------+ + + + documented in this encounter Results Potassium (04/13/2018 9:14 AM PDT) + + + + + + | Component | Value | Ref Range | Performed | Pathologist | | | | | At | Signature | + + + + + + | K | 3.5Comment: Testing | 3.5 - 4.9 | EXTERNAL | | | | performed at [facility];[address] | mmol/L | LAB | | | | [address];[place], [place] | | | | | | [address] | | | | + + + [...] + +---------+ + + External Lab: CBC (04/13/2018 4:01 AM PDT) + + + + + + | Component | Value | Ref Range | Performed | Pathologist | | | | | At | Signature | + + + + + + | WBC | 7.09 | 3.80 - 11.00 | EXTERNAL | | | | | K/uL | LAB | | + + + + + + | Non- | 4.07 (L) | 4.20 - 5.70 | EXTERNAL | | | Red Blood | | M/uL | LAB | | | Cells | | | | | | Counted | | | | | + + + + + + | Hemoglobin | 12.7 (L) | 13.2 - 17.0 | EXTERNAL | | | | | g/dL | LAB | | + + + + + + | Hematocrit, | 36.2 (L) | 39.0 - 50.0 % | EXTERNAL | | | POC | | | LAB | | + + + + + + | MCV | 88.9 | 80.0 - 100.0 fl | EXTERNAL | | | | | | LAB | | + + + + + + | MCH | 31.3 | 27.0 - 34.0 pg | EXTERNAL | | | | | | LAB | | + + + + + + | MCHC | 35.2 | 32.0 - 35.5 | EXTERNAL | | | | | g/dL | LAB | | + + + + + + | RDW-CV | 44.6 | 37 - 53 fl | EXTERNAL | | | | | | LAB | | + + + + + + | Platelet | 158 | 150 - 400 K/uL | EXTERNAL | | | Count | | | LAB | | | Plasma | | | | | + + + + + + | MPV | 8.4 | fl | EXTERNAL | | | | | | LAB | | + + + + + + | Differentia | AUTOMATED | | EXTERNAL | | | l Type | | | LAB | | + + + + + + | % Segmented | 70.75 | % | EXTERNAL | | | | | | LAB | | | Neutrophils | | | | | + + + + + + | % | 17.78 | % | EXTERNAL | | | Lymphocytes | | | LAB | | + + + + + + | % Monocytes | 9.50 | % | EXTERNAL | | | | | | LAB | | + + + + + + | % | 1.47 | % | EXTERNAL | | | Eosinophils | | | LAB | | + + + + + + | % Basophils | 0.50 | % | EXTERNAL | | | | | | LAB | | + + + + + + | Absolute | 5.02 | 1.90 - 7.40 | EXTERNAL | | | Segmented | | K/uL | LAB | | | Neutrophils | | | | | + + + + + + | Absolute | 1.26 | 1.00 - 3.90 | EXTERNAL | | | Lymphocytes | | K/uL | LAB | | + + + + + + | Absolute | 0.67 | 0.00 - 0.80 | EXTERNAL | | | Monocytes | | K/uL | LAB | | + + + + + + | Absolute | 0.10 | 0.00 - 0.50 | EXTERNAL | | | Eosinophils | | K/uL | LAB | | + + + + + + | Absolute | 0.04Comment: Testing | 0.00 - 0.10 | EXTERNAL | | | Basophils | performed at [facility], [address] | K/uL | LAB | | | | [address], | | | | | | [place] [address] | | | | + + + + + + + + | Specimen | + + | Blood specimen | | (specimen) | + + + +---------+ + + | Performing | Address | City/State/Zipcode | Phone Number | | Organization | | | | + +---------+ + + | EXTERNAL LAB | | | | + +---------+ + + Phosphorus (04/13/2018 4:01 AM PDT) + + + + + + | Component | Value | Ref Range | Performed | Pathologist | | | | | At | Signature | + + + + + + | PHOSPHORUS | 3.8Comment: Testing | 2.3 - 4.8 mg/dL | EXTERNAL | | | | performed at [facility], [address] | | LAB | | | | [address], | | | | | | [place] [address] | | | | + + + + + + + + | Specimen | + + | Blood specimen | | (specimen) | + + + +---------+ + + | Performing | Address | City/State/Zipcode | Phone Number | | Organization | | | | + +---------+ + + | EXTERNAL LAB | | | | + +---------+ + + Magnesium (04/13/2018 4:01 AM PDT) + + + + + + | Component | Value | Ref Range | Performed | Pathologist | | | | | At | Signature | + + + + + + | Magnesium | 2.3Comment: Testing | 1.7 - 2.4 mg/dL | EXTERNAL | | | | performed at [facility], [address] | | LAB | | | | [address], | | | | | | [place] [address] | | | | + + + [...] + +---------+ + + Comprehensive Metabolic Panel (04/13/2018 4:01 AM PDT) + + + + + + | Component | Value | Ref Range | Performed | Pathologist | | | | | At | Signature | + + + + + + | Na | 140 | 135 - 145 | EXTERNAL | | | | | mmol/L | LAB | | + + + + + + | K | 3.5 | 3.5 - 4.9 | EXTERNAL | | | | | mmol/L | LAB | | + + + + + + | Cl | 103 | 99 - 109 mmol/L | EXTERNAL | | | | | | LAB | | + + + + + + | CO2 | 30 | 23 - 32 mmol/L | EXTERNAL | | | | | | LAB | | + + + + + + | Anion Gap | 11 | 5 - 20 mmol/L | EXTERNAL | | | | | | LAB | | + + + + + + | Glucose, | 119 (H) | 65 - 99 mg/dL | EXTERNAL | | | Fasting | | | LAB | | + + + + + + | BUN | 16 | 8 - 25 mg/dL | EXTERNAL | | | | | | LAB | | + + + + + + | Creatinine | 1.0 | 0.70 - 1.30 | EXTERNAL | | | | | mg/dL | LAB | | + + + + + + | BUN/Creatin | 16 | | EXTERNAL | | | ine Ratio | | | LAB | | + + + + + + | Calcium | 9.2 | 8.5 - 10.5 | EXTERNAL | | | | | mg/dL | LAB | | + + + + + + | Protein, | 5.8 (L) | 6.3 - 8.2 g/dL | EXTERNAL | | | Total | | | LAB | | + + + + + + | Albumin | 3.0 (L) | 3.3 - 4.8 g/dL | EXTERNAL | | | | | | LAB | | + + + + + + | Globulin | 2.8 | 1.3 - 4.9 g/dL | EXTERNAL | | | | | | LAB | | + + + + + + | A/G Ratio | 1.1 | 1.0 - 2.4 | EXTERNAL | | | | | | LAB | | + + + + + + | Bilirubin | 0.6 | 0.1 - 1.5 mg/dL | EXTERNAL | | | Total | | | LAB | | + + + + + + | ALP, | 76 | 35 - 115 U/L | EXTERNAL | | | External | | | LAB | | + + + + + + | AST | 52 (H) | 10 - 45 U/L | EXTERNAL | | | | | | LAB | | + + + + + + | ALT | 83 (H) | 10 - 65 U/L | EXTERNAL | | | | | | LAB | | + + + + + + | Estimated | >60Comment: GFR <60: | mL/min/1.73m2 | EXTERNAL | | | GFR | CHRONIC KIDNEY DISEASE, | | LAB | | | | IF FOUND OVER A 3 MONTH | | | | | | PERIOD.GFR <15: KIDNEY | | | | | | FAILURE.FOR | | | | | | AMERICANS, MULTIPLY THE | | | | | | CALCULATED GFR BY | | | | | | 1.210.This eGFR is | | | | | | calculated using the | | | | | | MDRD IDMS traceable | | | | | | equation.Testing | | | | | | performed at [facility], [address] | | | | | | [facility], | | | | | | [place] [address] | | | | + + + [...] + +---------+ + + External Lab: CBC (04/12/2018 4:26 AM PDT) + + + + + + | Component | Value | Ref Range | Performed | Pathologist | | | | | At | Signature | + + + + + + | WBC | 7.62 | 3.80 - 11.00 | EXTERNAL | | | | | K/uL | LAB | | + + + + + + | Non- | 4.30 | 4.20 - 5.70 | EXTERNAL | | | Red Blood | | M/uL | LAB | | | Cells | | | | | | Counted | | | | | + + + + + + | Hemoglobin | 13.4 | 13.2 - 17.0 | EXTERNAL | | | | | g/dL | LAB | | + + + + + + | Hematocrit, | 39.1 | 39.0 - 50.0 % | EXTERNAL | | | POC | | | LAB | | + + + + + + | MCV | 90.8 | 80.0 - 100.0 fl | EXTERNAL | | | | | | LAB | | + + + + + + | MCH | 31.2 | 27.0 - 34.0 pg | EXTERNAL | | | | | | LAB | | + + + + + + | MCHC | 34.3 | 32.0 - 35.5 | EXTERNAL | | | | | g/dL | LAB | | + + + + + + | RDW-CV | 43.8 | 37 - 53 fl | EXTERNAL | | | | | | LAB | | + + + + + + | Platelet | 157 | 150 - 400 K/uL | EXTERNAL | | | Count | | | LAB | | | Plasma | | | | | + + + + + + | MPV | 8.8 | fl | EXTERNAL | | | | | | LAB | | + + + + + + | Differentia | AUTOMATED | | EXTERNAL | | | l Type | | | LAB | | + + + + + + | % Segmented | 72.29 | % | EXTERNAL | | | | | | LAB | | | Neutrophils | | | | | + + + + + + | % | 17.77 | % | EXTERNAL | | | Lymphocytes | | | LAB | | + + + + + + | % Monocytes | 7.65 | % | EXTERNAL | | | | | | LAB | | + + + + + + | % | 1.70 | % | EXTERNAL | | | Eosinophils | | | LAB | | + + + + + + | % Basophils | 0.59 | % | EXTERNAL | | | | | | LAB | | + + + + + + | Absolute | 5.51 | 1.90 - 7.40 | EXTERNAL | | | Segmented | | K/uL | LAB | | | Neutrophils | | | | | + + + + + + | Absolute | 1.35 | 1.00 - 3.90 | EXTERNAL | | | Lymphocytes | | K/uL | LAB | | + + + + + + | Absolute | 0.58 | 0.00 - 0.80 | EXTERNAL | | | Monocytes | | K/uL | LAB | | + + + + + + | Absolute | 0.13 | 0.00 - 0.50 | EXTERNAL | | | Eosinophils | | K/uL | LAB | | + + + + + + | Absolute | 0.05Comment: Testing | 0.00 - 0.10 | EXTERNAL | | | Basophils | performed at [facility], [address] | K/uL | LAB | | | | [address], | | | | | | [place] [address] | | | | + + + + + + + + | Specimen | + + | Blood specimen | | (specimen) | + + + +---------+ + + | Performing | Address | City/State/Zipcode | Phone Number | | Organization | | | | + +---------+ + + | EXTERNAL LAB | | | | + +---------+ + + Phosphorus (04/12/2018 4:26 AM PDT) + + + + + + | Component | Value | Ref Range | Performed | Pathologist | | | | | At | Signature | + + + + + + | PHOSPHORUS | 3.1Comment: Testing | 2.3 - 4.8 mg/dL | EXTERNAL | | | | performed at [facility], [address] | | LAB | | | | [address], | | | | | | [place] [address] | | | | + + + + + + + + | Specimen | + + | Blood specimen | | (specimen) | + + + +---------+ + + | Performing | Address | City/State/Zipcode | Phone Number | | Organization | | | | + +---------+ + + | EXTERNAL LAB | | | | + +---------+ + + Magnesium (04/12/2018 4:26 AM PDT) + + + + + + | Component | Value | Ref Range | Performed | Pathologist | | | | | At | Signature | + + + + + + | Magnesium | 2.1Comment: Testing | 1.7 - 2.4 mg/dL | EXTERNAL | | | | performed at [facility], [address] | | LAB | | | | [address], | | | | | | [place] [address] | | | | + + + [...] + +---------+ + + Comprehensive Metabolic Panel (04/12/2018 4:26 AM PDT) + + + + + + | Component | Value | Ref Range | Performed | Pathologist | | | | | At | Signature | + + + + + + | Na | 138 | 135 - 145 | EXTERNAL | | | | | mmol/L | LAB | | + + + + + + | K | 3.9 | 3.5 - 4.9 | EXTERNAL | | | | | mmol/L | LAB | | + + + + + + | Cl | 101 | 99 - 109 mmol/L | EXTERNAL | | | | | | LAB | | + + + + + + | CO2 | 28 | 23 - 32 mmol/L | EXTERNAL | | | | | | LAB | | + + + + + + | Anion Gap | 13 | 5 - 20 mmol/L | EXTERNAL | | | | | | LAB | | + + + + + + | Glucose, | 104 (H) | 65 - 99 mg/dL | EXTERNAL | | | Fasting | | | LAB | | + + + + + + | BUN | 13 | 8 - 25 mg/dL | EXTERNAL | | | | | | LAB | | + + + + + + | Creatinine | 1.0 | 0.70 - 1.30 | EXTERNAL | | | | | mg/dL | LAB | | + + + + + + | BUN/Creatin | 13 | | EXTERNAL | | | ine Ratio | | | LAB | | + + + + + + | Calcium | 9.8 | 8.5 - 10.5 | EXTERNAL | | | | | mg/dL | LAB | | + + + + + + | Protein, | 6.3 | 6.3 - 8.2 g/dL | EXTERNAL | | | Total | | | LAB | | + + + + + + | Albumin | 3.3 | 3.3 - 4.8 g/dL | EXTERNAL | | | | | | LAB | | + + + + + + | Globulin | 3.0 | 1.3 - 4.9 g/dL | EXTERNAL | | | | | | LAB | | + + + + + + | A/G Ratio | 1.1 | 1.0 - 2.4 | EXTERNAL | | | | | | LAB | | + + + + + + | Bilirubin | 1.0 | 0.1 - 1.5 mg/dL | EXTERNAL | | | Total | | | LAB | | + + + + + + | ALP, | 67 | 35 - 115 U/L | EXTERNAL | | | External | | | LAB | | + + + + + + | AST | 123 (H) | 10 - 45 U/L | EXTERNAL | | | | | | LAB | | + + + + + + | ALT | 111 (H) | 10 - 65 U/L | EXTERNAL | | | | | | LAB | | + + + + + + | Estimated | >60Comment: GFR <60: | mL/min/1.73m2 | EXTERNAL | | | GFR | CHRONIC KIDNEY DISEASE, | | LAB | | | | IF FOUND OVER A 3 MONTH | | | | | | PERIOD.GFR <15: KIDNEY | | | | | | FAILURE.FOR | | | | | | AMERICANS, MULTIPLY THE | | | | | | CALCULATED GFR BY | | | | | | 1.210.This eGFR is | | | | | | calculated using the | | | | | | MDRD IDMS traceable | | | | | | equation.Testing | | | | | | performed at [facility], [address] | | | | | | [address], | | | | | | [place] [address] | | | | + + + + + + + + | Specimen | + + | Blood specimen | | (specimen) | + + + +---------+ + + | Performing | Address | City/State/Zipcode | Phone Number | | Organization | | | | + +---------+ + + | EXTERNAL LAB | | | | + +---------+ + + Potassium (04/11/2018 9:18 AM PDT) + + + + + + | Component | Value | Ref Range | Performed | Pathologist | | | | | At | Signature | + + + + + + | K | 4.0Comment: Testing | 3.5 - 4.9 | EXTERNAL | | | | performed at [facility], [address] | mmol/L | LAB | | | | [address], | | | | | | [place] [address] | | | | + + + [...] + +---------+ + + External Lab: CBC (04/11/2018 4:18 AM PDT) + + + + + + | Component | Value | Ref Range | Performed | Pathologist | | | | | At | Signature | + + + + + + | WBC | 8.72 | 3.80 - 11.00 | EXTERNAL | | | | | K/uL | LAB | | + + + + + + | Non- | 4.22 | 4.20 - 5.70 | EXTERNAL | | | Red Blood | | M/uL | LAB | | | Cells | | | | | | Counted | | | | | + + + + + + | Hemoglobin | 13.2 | 13.2 - 17.0 | EXTERNAL | | | | | g/dL | LAB | | + + + + + + | Hematocrit, | 38.2 (L) | 39.0 - 50.0 % | EXTERNAL | | | POC | | | LAB | | + + + + + + | MCV | 90.5 | 80.0 - 100.0 fl | EXTERNAL | | | | | | LAB | | + + + + + + | MCH | 31.2 | 27.0 - 34.0 pg | EXTERNAL | | | | | | LAB | | + + + + + + | MCHC | 34.4 | 32.0 - 35.5 | EXTERNAL | | | | | g/dL | LAB | | + + + + + + | RDW-CV | 45.5 | 37 - 53 fl | EXTERNAL | | | | | | LAB | | + + + + + + | Platelet | 157 | 150 - 400 K/uL | EXTERNAL | | | Count | | | LAB | | | Plasma | | | | | + + + + + + | MPV | 8.8 | fl | EXTERNAL | | | | | | LAB | | + + + + + + | Differentia | AUTOMATED | | EXTERNAL | | | l Type | | | LAB | | + + + + + + | % Segmented | 74.32 | % | EXTERNAL | | | | | | LAB | | | Neutrophils | | | | | + + + + + + | % | 14.80 | % | EXTERNAL | | | Lymphocytes | | | LAB | | + + + + + + | % Monocytes | 8.49 | % | EXTERNAL | | | | | | LAB | | + + + + + + | % | 1.79 | % | EXTERNAL | | | Eosinophils | | | LAB | | + + + + + + | % Basophils | 0.60 | % | EXTERNAL | | | | | | LAB | | + + + + + + | Absolute | 6.48 | 1.90 - 7.40 | EXTERNAL | | | Segmented | | K/uL | LAB | | | Neutrophils | | | | | + + + + + + | Absolute | 1.29 | 1.00 - 3.90 | EXTERNAL | | | Lymphocytes | | K/uL | LAB | | + + + + + + | Absolute | 0.74 | 0.00 - 0.80 | EXTERNAL | | | Monocytes | | K/uL | LAB | | + + + + + + | Absolute | 0.16 | 0.00 - 0.50 | EXTERNAL | | | Eosinophils | | K/uL | LAB | | + + + + + + | Absolute | 0.05Comment: Testing | 0.00 - 0.10 | EXTERNAL | | | Basophils | performed at [facility], [address] | K/uL | LAB | | | | [address], | | | | | | [place] [address] | | | | + + + + + + + + | Specimen | + + | Blood specimen | | (specimen) | + + + +---------+ + + | Performing | Address | City/State/Zipcode | Phone Number | | Organization | | | | + +---------+ + + | EXTERNAL LAB | | | | + +---------+ + + Phosphorus (04/11/2018 4:18 AM PDT) + + + + + + | Component | Value | Ref Range | Performed | Pathologist | | | | | At | Signature | + + + + + + | PHOSPHORUS | 2.9Comment: Testing | 2.3 - 4.8 mg/dL | EXTERNAL | | | | performed at [facility], [address] | | LAB | | | | [facility], | | | | | | [place] [address] | | | | + + + + + + + + | Specimen | + + | Blood specimen | | (specimen) | + + + +---------+ + + | Performing | Address | City/State/Zipcode | Phone Number | | Organization | | | | + +---------+ + + | EXTERNAL LAB | | | | + +---------+ + + Magnesium (04/11/2018 4:18 AM PDT) + + + + + + | Component | Value | Ref Range | Performed | Pathologist | | | | | At | Signature | + + + + + + | Magnesium | 2.2Comment: Testing | 1.7 - 2.4 mg/dL | EXTERNAL | | | | performed at [facility], [address] | | LAB | | | | [address], | | | | | | [place] [address] | | | | + + + [...] + +---------+ + + Comprehensive Metabolic Panel (04/11/2018 4:18 AM PDT) + + + + + + | Component | Value | Ref Range | Performed | Pathologist | | | | | At | Signature | + + + + + + | Na | 142 | 135 - 145 | EXTERNAL | | | | | mmol/L | LAB | | + + + + + + | K | 3.6 | 3.5 - 4.9 | EXTERNAL | | | | | mmol/L | LAB | | + + + + + + | Cl | 106 | 99 - 109 mmol/L | EXTERNAL | | | | | | LAB | | + + + + + + | CO2 | 30 | 23 - 32 mmol/L | EXTERNAL | | | | | | LAB | | + + + + + + | Anion Gap | 10 | 5 - 20 mmol/L | EXTERNAL | | | | | | LAB | | + + + + + + | Glucose, | 122 (H) | 65 - 99 mg/dL | EXTERNAL | | | Fasting | | | LAB | | + + + + + + | BUN | 13 | 8 - 25 mg/dL | EXTERNAL | | | | | | LAB | | + + + + + + | Creatinine | 0.9 | 0.70 - 1.30 | EXTERNAL | | | | | mg/dL | LAB | | + + + + + + | BUN/Creatin | 14 | | EXTERNAL | | | ine Ratio | | | LAB | | + + + + + + | Calcium | 9.4 | 8.5 - 10.5 | EXTERNAL | | | | | mg/dL | LAB | | + + + + + + | Protein, | 5.7 (L) | 6.3 - 8.2 g/dL | EXTERNAL | | | Total | | | LAB | | + + + + + + | Albumin | 3.0 (L) | 3.3 - 4.8 g/dL | EXTERNAL | | | | | | LAB | | + + + + + + | Globulin | 2.7 | 1.3 - 4.9 g/dL | EXTERNAL | | | | | | LAB | | + + + + + + | A/G Ratio | 1.1 | 1.0 - 2.4 | EXTERNAL | | | | | | LAB | | + + + + + + | Bilirubin | 0.8 | 0.1 - 1.5 mg/dL | EXTERNAL | | | Total | | | LAB | | + + + + + + | ALP, | 59 | 35 - 115 U/L | EXTERNAL | | | External | | | LAB | | + + + + + + | AST | 80 (H) | 10 - 45 U/L | EXTERNAL | | | | | | LAB | | + + + + + + | ALT | 59 | 10 - 65 U/L | EXTERNAL | | | | | | LAB | | + + + + + + | Estimated | >60Comment: GFR <60: | mL/min/1.73m2 | EXTERNAL | | | GFR | CHRONIC KIDNEY DISEASE, | | LAB | | | | IF FOUND OVER A 3 MONTH | | | | | | PERIOD.GFR <15: KIDNEY | | | | | | FAILURE.FOR | | | | | | AMERICANS, MULTIPLY THE | | | | | | CALCULATED GFR BY | | | | | | 1.210.This eGFR is | | | | | | calculated using the | | | | | | MDRD IDMS traceable | | | | | | equation.Testing | | | | | | performed at [facility], [address] | | | | | | [facility], | | | | | | [place] [address] | | | | + + + + + + + + | Specimen | + + | Blood specimen | | (specimen) | + + + +---------+ + + | Performing | Address | City/State/Zipcode | Phone Number | | Organization | | | | + +---------+ + + | EXTERNAL LAB | | | | + +---------+ + + Hemoglobin and Hematocrit (04/10/2018 9:15 PM PDT) + + + + + + | Component | Value | Ref Range | Performed | Pathologist | | | | | At | Signature | + + + + + + | Hemoglobin | 13.0 (L) | 13.2 - 17.0 | EXTERNAL | | | | | g/dL | LAB | | + + + + + + | Hematocrit, | 38.9 (L)Comment: Testing | 39.0 - 50.0 % | EXTERNAL | | | POC | performed at [facility];[address] | | LAB | | | | [address];[place] | | | | | | [address] | | | | + + + + + + + + | Specimen | + + | | + + + +---------+ + + | Performing | Address | City/State/Zipcode | Phone Number | | Organization | | | | + +---------+ + + | EXTERNAL LAB | | | | + +---------+ + + Hemoglobin and Hematocrit (04/10/2018 2:51 PM PDT) + + + + + + | Component | Value | Ref Range | Performed | Pathologist | | | | | At | Signature | + + + + + + | Hemoglobin | 13.5 | 13.2 - 17.0 | EXTERNAL | | | | | g/dL | LAB | | + + + + + + | Hematocrit, | 40.7Comment: Testing | 39.0 - 50.0 % | EXTERNAL | | | POC | performed at [facility];[address] | | LAB | | | | [address];[place], [place] | | | | | | [address] | | | | + + + + + + + + | Specimen | + + | | + + + +---------+ + + | Performing | Address | City/State/Zipcode | Phone Number | | Organization | | | | + +---------+ + + | EXTERNAL LAB | | | | + +---------+ + + PTT (04/10/2018 11:19 AM PDT) + + + + + + | Component | Value | Ref Range | Performed | Pathologist | | | | | At | Signature | + + + + + + | aPTT, | 32Comment: Testing | 23 - 32 seconds | EXTERNAL | | | Patient | performed at [facility];[address] | | LAB | | | | [address];[place], [place] | | | | | | [address] | | | | + + + + + + + + | Specimen | + + | Blood specimen | | (specimen) | + + + +---------+ + + | Performing | Address | City/State/Zipcode | Phone Number | | Organization | | | | + +---------+ + + | EXTERNAL LAB | | | | + +---------+ + + External Lab: Occult Blood, Screening (04/10/2018 10:48 AM PDT) + + | Specimen | + + | Stool specimen | | (specimen) | + + + + + | Narrative | Performed At | + + + | Fecal Occult Blood POSITIVE Abnormal | EXTERNAL LAB | | Testing performed at [facility];[address] [place] [address];[place] [address] | | + + + + +---------+ + + | Performing | Address | City/State/Zipcode | Phone Number | | Organization | | | | + +---------+ + + | EXTERNAL LAB | | | | + +---------+ + + CBC no Differential (04/10/2018 4:16 AM PDT) + + + + + + | Component | Value | Ref Range | Performed | Pathologist | | | | | At | Signature | + + + + + + | WBC | 9.03 | 3.80 - 11.00 | EXTERNAL | | | | | K/uL | LAB | | + + + + + + | Non- | 3.95 (L) | 4.20 - 5.70 | EXTERNAL | | | Red Blood | | M/uL | LAB | | | Cells | | | | | | Counted | | | | | + + + + + + | Hemoglobin | 12.3 (L) | 13.2 - 17.0 | EXTERNAL | | | | | g/dL | LAB | | + + + + + + | Hematocrit, | 35.8 (L) | 39.0 - 50.0 % | EXTERNAL | | | POC | | | LAB | | + + + + + + | MCV | 90.7 | 80.0 - 100.0 fl | EXTERNAL | | | | | | LAB | | + + + + + + | MCH | 31.2 | 27.0 - 34.0 pg | EXTERNAL | | | | | | LAB | | + + + + + + | MCHC | 34.4 | 32.0 - 35.5 | EXTERNAL | | | | | g/dL | LAB | | + + + + + + | RDW-CV | 45.1 | 37 - 53 fl | EXTERNAL | | | | | | LAB | | + + + + + + | Platelet | 152 | 150 - 400 K/uL | EXTERNAL | | | Count | | | LAB | | | Plasma | | | | | + + + + + + | MPV | 9.0Comment: Testing | fl | EXTERNAL | | | | performed at [facility], [address] | | LAB | | | | [address], | | | | | | [place] [address] | | | | + + + + + + + + | Specimen | + + | | + + + +---------+ + + | Performing | Address | City/State/Zipcode | Phone Number | | Organization | | | | + +---------+ + + | EXTERNAL LAB | | | | + +---------+ + + PTT (04/10/2018 4:16 AM PDT) + + + + + + | Component | Value | Ref Range | Performed | Pathologist | | | | | At | Signature | + + + + + + | aPTT, | 59 (H)Comment: Testing | 23 - 32 seconds | EXTERNAL | | | Patient | performed at [facility];[address] | | LAB | | | | [address];[place], [place] | | | | | | [address] | | | | + + + + + + + + | Specimen | + + | Blood specimen | | (specimen) | + + + +---------+ + + | Performing | Address | City/State/Zipcode | Phone Number | | Organization | | | | + +---------+ + + | EXTERNAL LAB | | | | + +---------+ + + Phosphorus (04/10/2018 4:16 AM PDT) + + + + + + | Component | Value | Ref Range | Performed | Pathologist | | | | | At | Signature | + + + + + + | PHOSPHORUS | 2.8Comment: Testing | 2.3 - 4.8 mg/dL | EXTERNAL | | | | performed at [facility], [address] | | LAB | | | | [address], | | | | | | [place] [address] | | | | + + + + + + + + | Specimen | + + | Blood specimen | | (specimen) | + + + +---------+ + + | Performing | Address | City/State/Zipcode | Phone Number | | Organization | | | | + +---------+ + + | EXTERNAL LAB | | | | + +---------+ + + B Type Natriuretic Peptide (04/10/2018 4:16 AM PDT) + + + + + + | Component | Value | Ref Range | Performed | Pathologist | | | | | At | Signature | + + + + + + | BNP | 414 (H)Comment: Testing | 0 - 100 pg/mL | EXTERNAL | | | | performed at [facility];[address] | | LAB | | | | [address];[place], [place] | | | | | | [address] | | | | + + + + + + + + | Specimen | + + | Blood specimen | | (specimen) | + + + +---------+ + + | Performing | Address | City/State/Zipcode | Phone Number | | Organization | | | | + +---------+ + + | EXTERNAL LAB | | | | + +---------+ + + Magnesium (04/10/2018 4:16 AM PDT) + + + + + + | Component | Value | Ref Range | Performed | Pathologist | | | | | At | Signature | + + + + + + | Magnesium | 2.2Comment: Testing | 1.7 - 2.4 mg/dL | EXTERNAL | | | | performed at [facility], [address] | | LAB | | | | [address], | | | | | | [place] [address] | | | | + + + [...] + +---------+ + + Comprehensive Metabolic Panel (04/10/2018 4:16 AM PDT) + + + + + + | Component | Value | Ref Range | Performed | Pathologist | | | | | At | Signature | + + + + + + | Na | 142 | 135 - 145 | EXTERNAL | | | | | mmol/L | LAB | | + + + + + + | K | 3.7 | 3.5 - 4.9 | EXTERNAL | | | | | mmol/L | LAB | | + + + + + + | Cl | 105 | 99 - 109 mmol/L | EXTERNAL | | | | | | LAB | | + + + + + + | CO2 | 28 | 23 - 32 mmol/L | EXTERNAL | | | | | | LAB | | + + + + + + | Anion Gap | 13 | 5 - 20 mmol/L | EXTERNAL | | | | | | LAB | | + + + + + + | Glucose, | 115 (H) | 65 - 99 mg/dL | EXTERNAL | | | Fasting | | | LAB | | + + + + + + | BUN | 20 | 8 - 25 mg/dL | EXTERNAL | | | | | | LAB | | + + + + + + | Creatinine | 0.9 | 0.70 - 1.30 | EXTERNAL | | | | | mg/dL | LAB | | + + + + + + | BUN/Creatin | 22 | | EXTERNAL | | | ine Ratio | | | LAB | | + + + + + + | Calcium | 8.9 | 8.5 - 10.5 | EXTERNAL | | | | | mg/dL | LAB | | + + + + + + | Protein, | 5.2 (L) | 6.3 - 8.2 g/dL | EXTERNAL | | | Total | | | LAB | | + + + + + + | Albumin | 2.6 (L) | 3.3 - 4.8 g/dL | EXTERNAL | | | | | | LAB | | + + + + + + | Globulin | 2.6 | 1.3 - 4.9 g/dL | EXTERNAL | | | | | | LAB | | + + + + + + | A/G Ratio | 1.0 | 1.0 - 2.4 | EXTERNAL | | | | | | LAB | | + + + + + + | Bilirubin | 0.6 | 0.1 - 1.5 mg/dL | EXTERNAL | | | Total | | | LAB | | + + + + + + | ALP, | 65 | 35 - 115 U/L | EXTERNAL | | | External | | | LAB | | + + + + + + | AST | 38 | 10 - 45 U/L | EXTERNAL | | | | | | LAB | | + + + + + + | ALT | 22 | 10 - 65 U/L | EXTERNAL | | | | | | LAB | | + + + + + + | Estimated | >60Comment: GFR <60: | mL/min/1.73m2 | EXTERNAL | | | GFR | CHRONIC KIDNEY DISEASE, | | LAB | | | | IF FOUND OVER A 3 MONTH | | | | | | PERIOD.GFR <15: KIDNEY | | | | | | FAILURE.FOR | | | | | | AMERICANS, MULTIPLY THE | | | | | | CALCULATED GFR BY | | | | | | 1.210.This eGFR is | | | | | | calculated using the | | | | | | MDRD IDMS traceable | | | | | | equation.Testing | | | | | | performed at [facility], [address] | | | | | | [facility], | | | | | | [place] [address] | | | | + + + + + + + + | Specimen | + + | Blood specimen | | (specimen) | + + + +---------+ + + | Performing | Address | City/State/Zipcode | Phone Number | | Organization | | | | + +---------+ + + | EXTERNAL LAB | | | | + +---------+ + + PTT (04/09/2018 9:34 PM PDT) + + + + + + | Component | Value | Ref Range | Performed | Pathologist | | | | | At | Signature | + + + + + + | aPTT, | 40 (H)Comment: Testing | 23 - 32 seconds | EXTERNAL | | | Patient | performed at [facility];[address] | | LAB | | | | [address];[place], [place] | | | | | | [address] | | | | + + + + + + + + | Specimen | + + | Blood specimen | | (specimen) | + + + +---------+ + + | Performing | Address | City/State/Zipcode | Phone Number | | Organization | | | | + +---------+ + + | EXTERNAL LAB | | | | + +---------+ + + PTT (04/09/2018 3:28 PM PDT) + + + + + + | Component | Value | Ref Range | Performed | Pathologist | | | | | At | Signature | + + + + + + | aPTT, | 46 (H)Comment: Testing | 23 - 32 seconds | EXTERNAL | | | Patient | performed at [facility];[address] | | LAB | | | | [address];[place] | | | | | | [address] | | | | + + + + + + + + | Specimen | + + | Blood specimen | | (specimen) | + + + +---------+ + + | Performing | Address | City/State/Zipcode | Phone Number | | Organization | | | | + +---------+ + + | EXTERNAL LAB | | | | + +---------+ + + Potassium (04/09/2018 3:28 PM PDT) + + + + + + | Component | Value | Ref Range | Performed | Pathologist | | | | | At | Signature | + + + + + + | K | 3.9Comment: Testing | 3.5 - 4.9 | EXTERNAL | | | | performed at [facility] [place];888 | mmol/L | LAB | | | | [address];[place] | | | | | | [id number] | | | | + + + + + + + + | Specimen | + + | Blood specimen | | (specimen) | + + + +---------+ + + | Performing | Address | City/State/Zipcode | Phone Number | | Organization | | | | + +---------+ + + | EXTERNAL LAB | | | | + +---------+ + + Potassium (04/09/2018 11:50 AM PDT) + + + + + + | Component | Value | Ref Range | Performed | Pathologist | | | | | At | Signature | + + + + + + | K | 3.6Comment: Testing | 3.5 - 4.9 | EXTERNAL | | | | performed at [facility] [place] [facility];888 | mmol/L | LAB | | | | [address];[place], [place] | | | | | | [address] | | | | + + + + + + + + | Specimen | + + | Blood specimen | | (specimen) | + + + +---------+ + + | Performing | Address | City/State/Zipcode | Phone Number | | Organization | | | | + +---------+ + + | EXTERNAL LAB | | | | + +---------+ + + PTT (04/09/2018 9:15 AM PDT) + + + + + + | Component | Value | Ref Range | Performed | Pathologist | | | | | At | Signature | + + + + + + | aPTT, | 57 (H)Comment: Testing | 23 - 32 seconds | EXTERNAL | | | Patient | performed at [facility] [place] [facility];[address] | | LAB | | | | [address];[place] | | | | | | [address] | | | | + + + + + + + + | Specimen | + + | Blood specimen | | (specimen) | + + + +---------+ + + | Performing | Address | City/State/Zipcode | Phone Number | | Organization | | | | + +---------+ + + | EXTERNAL LAB | | | | + +---------+ + + PTT (04/09/2018 2:45 AM PDT) + + + + + + | Component | Value | Ref Range | Performed | Pathologist | | | | | At | Signature | + + + + + + | aPTT, | 68 (H)Comment: Testing | 23 - 32 seconds | EXTERNAL | | | Patient | performed at [facility] [place] [facility];[address] | | LAB | | | | [address];[place], [place] | | | | | | [address] | | | | + + + [...] + +---------+ + + External Lab: CBC (04/09/2018 2:45 AM PDT) + + + + + + | Component | Value | Ref Range | Performed | Pathologist | | | | | At | Signature | + + + + + + | WBC | 9.37 | 3.80 - 11.00 | EXTERNAL | | | | | K/uL | LAB | | + + + + + + | Non- | 4.55 | 4.20 - 5.70 | EXTERNAL | | | Red Blood | | M/uL | LAB | | | Cells | | | | | | Counted | | | | | + + + + + + | Hemoglobin | 14.2 | 13.2 - 17.0 | EXTERNAL | | | | | g/dL | LAB | | + + + + + + | Hematocrit, | 41.0 | 39.0 - 50.0 % | EXTERNAL | | | POC | | | LAB | | + + + + + + | MCV | 90.1 | 80.0 - 100.0 fl | EXTERNAL | | | | | | LAB | | + + + + + + | MCH | 31.2 | 27.0 - 34.0 pg | EXTERNAL | | | | | | LAB | | + + + + + + | MCHC | 34.7 | 32.0 - 35.5 | EXTERNAL | | | | | g/dL | LAB | | + + + + + + | RDW-CV | 44.2 | 37 - 53 fl | EXTERNAL | | | | | | LAB | | + + + + + + | Platelet | 167 | 150 - 400 K/uL | EXTERNAL | | | Count | | | LAB | | | Plasma | | | | | + + + + + + | MPV | 8.9 | fl | EXTERNAL | | | | | | LAB | | + + + + + + | Differentia | AUTOMATED | | EXTERNAL | | | l Type | | | LAB | | + + + + + + | % Segmented | 78.82 | % | EXTERNAL | | | | | | LAB | | | Neutrophils | | | | | + + + + + + | % | 11.52 | % | EXTERNAL | | | Lymphocytes | | | LAB | | + + + + + + | % Monocytes | 8.52 | % | EXTERNAL | | | | | | LAB | | + + + + + + | % | 0.66 | % | EXTERNAL | | | Eosinophils | | | LAB | | + + + + + + | % Basophils | 0.48 | % | EXTERNAL | | | | | | LAB | | + + + + + + | Absolute | 7.39 | 1.90 - 7.40 | EXTERNAL | | | Segmented | | K/uL | LAB | | | Neutrophils | | | | | + + + + + + | Absolute | 1.08 | 1.00 - 3.90 | EXTERNAL | | | Lymphocytes | | K/uL | LAB | | + + + + + + | Absolute | 0.80 | 0.00 - 0.80 | EXTERNAL | | | Monocytes | | K/uL | LAB | | + + + + + + | Absolute | 0.06 | 0.00 - 0.50 | EXTERNAL | | | Eosinophils | | K/uL | LAB | | + + + + + + | Absolute | 0.05Comment: Testing | 0.00 - 0.10 | EXTERNAL | | | Basophils | performed at [facility], [address] | K/uL | LAB | | | | [address], | | | | | | [place] [address] | | | | + + + + + + + + | Specimen | + + | Blood specimen | | (specimen) | + + + +---------+ + + | Performing | Address | City/State/Zipcode | Phone Number | | Organization | | | | + +---------+ + + | EXTERNAL LAB | | | | + +---------+ + + Phosphorus (04/09/2018 2:45 AM PDT) + + + + + + | Component | Value | Ref Range | Performed | Pathologist | | | | | At | Signature | + + + + + + | PHOSPHORUS | 2.8Comment: Testing | 2.3 - 4.8 mg/dL | EXTERNAL | | | | performed at [facility], [address] | | LAB | | | | [address], | | | | | | [place] [address] | | | | + + + + + + + + | Specimen | + + | Blood specimen | | (specimen) | + + + +---------+ + + | Performing | Address | City/State/Zipcode | Phone Number | | Organization | | | | + +---------+ + + | EXTERNAL LAB | | | | + +---------+ + + B Type Natriuretic Peptide (04/09/2018 2:45 AM PDT) + + + + + + | Component | Value | Ref Range | Performed | Pathologist | | | | | At | Signature | + + + + + + | BNP | 464 (H)Comment: Testing | 0 - 100 pg/mL | EXTERNAL | | | | performed at [facility];[address] | | LAB | | | | [address];[place], [place] | | | | | | [address] | | | | + + + + + + + + | Specimen | + + | Blood specimen | | (specimen) | + + + +---------+ + + | Performing | Address | City/State/Zipcode | Phone Number | | Organization | | | | + +---------+ + + | EXTERNAL LAB | | | | + +---------+ + + Magnesium (04/09/2018 2:45 AM PDT) + + + + + + | Component | Value | Ref Range | Performed | Pathologist | | | | | At | Signature | + + + + + + | Magnesium | 2.1Comment: Testing | 1.7 - 2.4 mg/dL | EXTERNAL | | | | performed at [facility], [address] | | LAB | | | | [address], | | | | | | [place] [address] | | | | + + + + + + + + | Specimen | + + | Blood specimen | | (specimen) | + + + +---------+ + + | Performing | Address | City/State/Zipcode | Phone Number | | Organization | | | | + +---------+ + + | EXTERNAL LAB | | | | + +---------+ + + Basic Metabolic Panel (04/09/2018 2:45 AM PDT) + + + + + + | Component | Value | Ref Range | Performed | Pathologist | | | | | At | Signature | + + + + + + | Na | 141 | 135 - 145 | EXTERNAL | | | | | mmol/L | LAB | | + + + + + + | K | 3.6 | 3.5 - 4.9 | EXTERNAL | | | | | mmol/L | LAB | | + + + + + + | Cl | 104 | 99 - 109 mmol/L | EXTERNAL | | | | | | LAB | | + + + + + + | CO2 | 27 | 23 - 32 mmol/L | EXTERNAL | | | | | | LAB | | + + + + + + | Anion Gap | 14 | 5 - 20 mmol/L | EXTERNAL | | | | | | LAB | | + + + + + + | Glucose, | 94 | 65 - 99 mg/dL | EXTERNAL | | | Fasting | | | LAB | | + + + + + + | BUN | 15 | 8 - 25 mg/dL | EXTERNAL | | | | | | LAB | | + + + + + + | Creatinine | 0.9 | 0.70 - 1.30 | EXTERNAL | | | | | mg/dL | LAB | | + + + + + + | BUN/Creatin | 17 | | EXTERNAL | | | ine Ratio | | | LAB | | + + + + + + | Calcium | 8.8 | 8.5 - 10.5 | EXTERNAL | | | | | mg/dL | LAB | | + + + + + + | Estimated | >60Comment: GFR <60: | mL/min/1.73m2 | EXTERNAL | | | GFR | CHRONIC KIDNEY DISEASE, | | LAB | | | | IF FOUND OVER A 3 MONTH | | | | | | PERIOD.GFR <15: KIDNEY | | | | | | FAILURE.FOR | | | | | | AMERICANS, MULTIPLY THE | | | | | | CALCULATED GFR BY | | | | | | 1.210.This eGFR is | | | | | | calculated using the | | | | | | MDRD IDMS traceable | | | | | | equation.Testing | | | | | | performed at [facility], [address] | | | | | | [address], | | | | | | [place] [address] | | | | + + + + + + + + | Specimen | + + | Blood specimen | | (specimen) | + + + +---------+ + + | Performing | Address | City/State/Zipcode | Phone Number | | Organization | | | | + +---------+ + + | EXTERNAL LAB | | | | + +---------+ + + PTT (04/08/2018 5:55 PM PDT) + + + + + + | Component | Value | Ref Range | Performed | Pathologist | | | | | At | Signature | + + + + + + | aPTT, | 41 (H)Comment: Testing | 23 - 32 seconds | EXTERNAL | | | Patient | performed at [facility];[address] | | LAB | | | | [address];[place] | | | | | | [address] | | | | + + + + + + + + | Specimen | + + | Blood specimen | | (specimen) | + + + +---------+ + + | Performing | Address | City/State/Zipcode | Phone Number | | Organization | | | | + +---------+ + + | EXTERNAL LAB | | | | + +---------+ + + CV CARDIAC PROCEDURE (04/08/2018 12:45 PM PDT) + + | Specimen | + + | | + + + + + | Impressions | Performed At | + + + | 1. Severe 3-vessel [place] coronary artery disease with occluded | | | right coronary artery with left to right collaterals, occluded ramus | | | intermedius at the ostium, severe disease of the left anterior | | | descending artery, and a small left circumflex artery. 2. Patent RAM | | | to LAD graft. 3. Severe stenosis of the distal 3rd of a large | | | saphenous graft to ramus intermedius with high clot burden and | | | extension of thrombus into the [place] ramus intermedius. 4. Occluded | | | other vein grafts. PLAN: Given the high thrombus burden in a | | | very large graft, old graft, PCI would carry a high risk of vessel | | | closure, distal embolization, no-reflow phenomenon. Even AngioJet | | | with mechanical thrombectomy would not be enough to treat this large | | | thrombus burden. The best option at this point would be medical | | | therapy. I would start him on Integrilin drip, continue heparin | | | drip, antiplatelets. Will consider bringing the patient back if the | | | patient had recurrent chest pain. He is currently chest pain free | | | and hemodynamically stable. Read by CHASITY WARREN MD | | | 04/10/2018 12:34 P | | + + + + + + | Narrative | Performed At | + + + | | | | | | | DATE OF PROCEDURE: 04/08/2018. PROCEDURES PERFORMED: 1. Left | | | heart catheterization. 2. Selective left and right coronary artery | | | angiogram. 3. Selective RAM to LAD graft angiogram. 4. Selective | | | saphenous vein graft to ramus intermedius angiogram. 5. Selective | | | vein graft to right coronary artery angiogram. INDICATION: | | | Non-ST elevation myocardial infarction. HISTORY OF PRESENT | | | ILLNESS: This is an 82-year-old male with history of coronary | | | artery bypass surgery twice who was admitted with chest pain, was | | | found to have elevated troponin that went up to 13. Patient was | | | referred for coronary angiogram, possible angioplasty and stenting. | | | Please refer to Dr. Scales's full cardiology consultation note | | | for more details. TECHNIQUE: The patient was brought to the | | | cardiac catheterization laboratory in a fasting nonsedated state. | | | After informed obtained, the patient was prepped and draped in the | | | usual sterile fashion. Timeout for patient safety was performed. | | | One percent lidocaine was used for local anesthesia of the right | | | groin. The right femoral artery was accessed using a micropuncture | | | needle. There was a lot of scar in the femoral artery. We used a | | | stiff wire and were able to advance the 6-Paraguayan sheath. A 5-[place]aguayan | | | FL4 catheter was advanced; however, unable to engage the left | | | coronary system. There is tortuosity in the aorta, including the | | | aortic arch. Then I tried an FL5 catheter and again I was not able | | | to engage. At this point I used a long sheath and a 65 cm | | | Destination sheath was advanced over the guidewire all the way to the | | | aortic arch. Then I tried a 5-[place]aguayan AL1 catheter after again | | | trying the FL5 catheter without success. Multiple angiographic views | | | of the left coronary system were obtained. Then using the 5-[place]ayan | | | AL1 catheter, I engaged the vein graft to the right coronary artery, | | | which is occluded and engaged another vein graft which was also | | | occluded that appeared to be going to the right coronary artery. | | | Subsequently the AL1 catheter was used for selective engagement of the | | | vein graft to the ramus intermedius and multiple angiographic views | | | were obtained. The graft is a large graft with an organized large | | | amount of thrombus in the long segment in the distal third with some | | | fresh blood clots extending into the [place] ramus. Subsequently a | | | 5-[place] FR4 catheter was advanced over the guidewire into the left | | | ventricle. Left ventricular pressures and pullback pressures were | | | obtained. The 5-[place] FR4 catheter was used for selective | | | engagement of the right coronary artery and angiographic views were | | | obtained. The 5-[place] FR4 catheter was used for selective | | | engagement of the left subclavian artery. Exchange length wire was | | | advanced into the left subclavian artery and a 5-[place] RAM catheter | | | was used for selective engagement of the RAM to LAD graft and | | | multiple angiographic views were obtained. Given the large thrombus | | | burden in all the vein grafts, I felt that PCI at this point would | | | carry a high risk of occlusion of the [place] vein graft with distal | | | embolization and high risk of no-reflow phenomenon, I decided to stop | | | here and treat him medically with Integrilin and heparin. | | | Subsequently the long sheath was exchanged for a short 6-Paraguayan 11 cm | | | sheath. Left femoral artery angiogram was obtained. | | | Subsequently Mynx closure of the left common femoral artery was done | | | successfully. The patient tolerated the procedure well without | | | complications. TOTAL CONTRAST: 95 mL of Isovue. ESTIMATED | | | BLOOD LOSS: Less than 10 cc. RESULTS: Hemodynamics: 1. Left | | | ventricular systolic pressure 171 with left ventricular end-diastolic | | | pressure of 15. 2. Aortic pressure is 168/67. 3. There was no | | | significant gradient across the aortic valve on pullback. CORONARY | | | ANATOMY: 1. Left main coronary artery trifurcates and gives rise to | | | the left anterior descending, ramus intermedius, and left circumflex | | | artery. The left main coronary artery has mild disease in the range | | | of 20 percent. 2. Left anterior descending artery had severe 75 | | | percent diffuse disease proximally. Before the first diagonal there | | | is another 70 percent disease after the first diagonal. The first | | | diagonal itself had 70 percent proximally and 80 percent in the mid | | | portion. There is competitive flow seen toward the RAM. Also | | | there is filling of the RAM from the LAD visualized. 3. Ramus | | | intermedius is not visualized, likely totally occluded at the ostium. | | | 4. Left circumflex artery is a small vessel that gives rise to small | | | marginal branches with a 90 percent ostial lesion. 5. Right | | | coronary artery is totally occluded proximally with left to right | | | collaterals visualized to the posterolateral and posterior descending | | | artery as well as right bridging collaterals to the mid right | | | coronary artery. GRAFT ANATOMY: 1. RAM to LAD is widely patent. | | | It fills the LAD antegradely. The LAD after the RAM anastomosis | | | is without obstructive disease. Also the RAM graft fills the LAD | | | retrogradely, filling the diagonal and the left circumflex artery and | | | left main. There are collaterals seen again from the left anterior | | | descending artery going to the right coronary artery. No collaterals | | | are seen to the ramus. 2. Saphenous vein graft to the ramus | | | intermedius is a large graft, probably 4.5 to 5 mm in diameter. | | | There is a long segment distally that has a large amount of clots. | | | Part of it is likely organized and part of it is fresh. There is | | | severe narrowing because of the thrombosis, probably 90 percent, and | | | distally at the anastomotic site in the range of 99 percent. The | | | [place] ramus intermedius is about a 2 to 2.5 mm vessel with fresh | | | thrombus extending just after the anastomotic site. There is TIMI3 | | | flow, however, in this graft. 3. Two vein grafts, likely to the right | | | coronary artery, were occluded. | | + + + + + | Procedure Note | + + | Reginaldo Valencia Conversion - 05/19/2019 3:42 PM PDT | | | | | | DATE OF PROCEDURE: 04/08/2018. | | | | PROCEDURES PERFORMED: | | 1. Left heart catheterization. | | 2. Selective left and right coronary artery angiogram. | | 3. Selective RAM to LAD graft angiogram. | | 4. Selective saphenous vein graft to ramus intermedius angiogram. | | 5. Selective vein graft to right coronary artery angiogram. | | | | INDICATION: Non-ST elevation myocardial infarction. | | | | HISTORY OF PRESENT ILLNESS: This is an 82-year-old male with history of | | coronary artery bypass surgery twice who was admitted with chest pain, was | | found to have elevated troponin that went up to 13. Patient was referred | | for coronary angiogram, possible angioplasty and stenting. Please refer to | | Dr. Scales's full cardiology consultation note for more details. | | | | TECHNIQUE: The patient was brought to the cardiac catheterization | | laboratory in a fasting nonsedated state. After informed obtained, the | | patient was prepped and draped in the usual sterile fashion. Timeout for | | patient safety was performed. One percent lidocaine was used for local | | anesthesia of the right groin. The right femoral artery was accessed using | | a micropuncture needle. There was a lot of scar in the femoral artery. We | | used a stiff wire and were able to advance the 6-[place] sheath. A 5-[place]aguayan | | FL4 catheter was advanced; however, unable to engage the left coronary | | system. There is tortuosity in the aorta, including the aortic arch. Then | | I tried an FL5 catheter and again I was not able to engage. | | | | At this point I used a long sheath and a 65 cm Destination sheath was | | advanced over the guidewire all the way to the aortic arch. Then I tried a | | 5-[place]agu[place] AL1 catheter after again trying the FL5 catheter without success. | | Multiple angiographic views of the left coronary system were obtained. | | Then using the 5-Paraguayan AL1 catheter, I engaged the vein graft to the right | | coronary artery, which is occluded and engaged another vein graft which was | | also occluded that appeared to be going to the right coronary artery. | | Subsequently the AL1 catheter was used for selective engagement of the vein | | graft to the ramus intermedius and multiple angiographic views were | | obtained. The graft is a large graft with an organized large amount of | | thrombus in the long segment in the distal third with some fresh blood | | clots extending into the [place] ramus. | | | | Subsequently a 5-[place] FR4 catheter was advanced over the guidewire into | | the left ventricle. Left ventricular pressures and pullback pressures were | | obtained. The 5-[place] FR4 catheter was used for selective engagement of | | the right coronary artery and angiographic views were obtained. The | | 5-[place] FR4 catheter was used for selective engagement of the left | | subclavian artery. Exchange length wire was advanced into the left | | subclavian artery and a 5-[place] RAM catheter was used for selective | | engagement of the RAM to LAD graft and multiple angiographic views were | | obtained. Given the large thrombus burden in all the vein grafts, I felt | | that PCI at this point would carry a high risk of occlusion of the [place] | | vein graft with distal embolization and high risk of no-reflow phenomenon, | | I decided to stop here and treat him medically with Integrilin and heparin. | | Subsequently the long sheath was exchanged for a short 6-Par[place]ayan 11 cm | | sheath. Left femoral artery angiogram was obtained. | | | | Subsequently Mynx closure of the left common femoral artery was done | | successfully. The patient tolerated the procedure well without | | complications. | | | | TOTAL CONTRAST: 95 mL of Isovue. | | | | ESTIMATED BLOOD LOSS: Less than 10 cc. | | | | RESULTS: Hemodynamics: | | 1. Left ventricular systolic pressure 171 with left ventricular | | end-diastolic pressure of 15. | | 2. Aortic pressure is 168/67. | | 3. There was no significant gradient across the aortic valve on pullback. | | | | CORONARY ANATOMY: | | 1. Left main coronary artery trifurcates and gives rise to the left | | anterior descending, ramus intermedius, and left circumflex artery. The | | left main coronary artery has mild disease in the range of 20 percent. | | 2. Left anterior descending artery had severe 75 percent diffuse disease | | proximally. Before the first diagonal there is another 70 percent | | disease after the first diagonal. The first diagonal itself had 70 | | percent proximally and 80 percent in the mid portion. There is | | competitive flow seen toward the RAM. Also there is filling of the | | RAM from the LAD visualized. | | 3. Ramus intermedius is not visualized, likely totally occluded at the | | ostium. | | 4. Left circumflex artery is a small vessel that gives rise to small | | marginal branches with a 90 percent ostial lesion. | | 5. Right coronary artery is totally occluded proximally with left to right | | collaterals visualized to the posterolateral and posterior descending | | artery as well as right bridging collaterals to the mid right coronary | | artery. | | | | GRAFT ANATOMY: | | 1. RAM to LAD is widely patent. It fills the LAD antegradely. The LAD | | after the RAM anastomosis is without obstructive disease. Also the | | RAM graft fills the LAD retrogradely, filling the diagonal and the left | | circumflex artery and left main. There are collaterals seen again from | | the left anterior descending artery going to the right coronary artery. | | No collaterals are seen to the ramus. | | 2. Saphenous vein graft to the ramus intermedius is a large graft, probably | | 4.5 to 5 mm in diameter. There is a long segment distally that has a | | large amount of clots. Part of it is likely organized and part of it is | | fresh. There is severe narrowing because of the thrombosis, probably 90 | | percent, and distally at the anastomotic site in the range of 99 | | percent. The [place] ramus intermedius is about a 2 to 2.5 mm vessel | | with fresh thrombus extending just after the anastomotic site. There is | | TIMI3 flow, however, in this graft. | | 3. Two vein grafts, likely to the right coronary artery, were occluded. | | | | IMPRESSION: | | 1. Severe 3-vessel [place] coronary artery disease with occluded right | | coronary artery with left to right collaterals, occluded ramus | | intermedius at the ostium, severe disease of the left anterior | | descending artery, and a small left circumflex artery. | | 2. Patent RAM to LAD graft. | | 3. Severe stenosis of the distal 3rd of a large saphenous graft to ramus | | intermedius with high clot burden and extension of thrombus into the | | [place] ramus intermedius. | | 4. Occluded other vein grafts. | | | | PLAN: Given the high thrombus burden in a very large graft, old graft, PCI | | would carry a high risk of vessel closure, distal embolization, no-reflow | | phenomenon. Even AngioJet with mechanical thrombectomy would not be enough | | to treat this large thrombus burden. The best option at this point would | | be medical therapy. I would start him on Integrilin drip, continue heparin | | drip, antiplatelets. Will consider bringing the patient back if the | | patient had recurrent chest pain. He is currently chest pain free and | | hemodynamically stable. | | Read by CHASITY WARREN MD 04/10/2018 12:34 P | | | | | + + Activated clotting time (04/08/2018 11:42 AM PDT) + + + + + + | Component | Value | Ref Range | Performed | Pathologist | | | | | At | Signature | + + + + + + | Activated | 219 (H)Comment: Testing | 74 - 137 | EXTERNAL | | | Clotting | performed at [facility];[address] | seconds | LAB | | | time, POC | [address];[place] | | | | | | [address] | | | | + + + + + + + + | Specimen | + + | | + + + +---------+ + + | Performing | Address | City/State/Zipcode | Phone Number | | Organization | | | | + +---------+ + + | EXTERNAL LAB | | | | + +---------+ + + Activated clotting time (04/08/2018 11:30 AM PDT) + + + + + + | Component | Value | Ref Range | Performed | Pathologist | | | | | At | Signature | + + + + + + | Activated | 230 (H)Comment: Testing | 74 - 137 | EXTERNAL | | | Clotting | performed at [facility];[address] | seconds | LAB | | | time, POC | [address];[place], [place] | | | | | | [address] | | | | + + + + + + + + | Specimen | + + | | + + + +---------+ + + | Performing | Address | City/State/Zipcode | Phone Number | | Organization | | | | + +---------+ + + | EXTERNAL LAB | | | | + +---------+ + + Activated clotting time (04/08/2018 11:19 AM PDT) + + + + + + | Component | Value | Ref Range | Performed | Pathologist | | | | | At | Signature | + + + + + + | Activated | 131Comment: Testing | 74 - 137 | EXTERNAL | | | Clotting | performed at [facility] [place] [facility];[address] | seconds | LAB | | | time, POC | [address];[place] | | | | | | [address] | | | | + + + + + + + + | Specimen | + + | | + + + +---------+ + + | Performing | Address | City/State/Zipcode | Phone Number | | Organization | | | | + +---------+ + + | EXTERNAL LAB | | | | + +---------+ + + ECHO Complete (04/08/2018 8:10 AM PDT) + + | Specimen | + + | | + + + + + | Impressions | Performed At | + + + | 1. This was a technically difficult study with suboptimal views. 2. | | | Overall left ventricular systolic function is low-normal with, an EF | | | between 50 - 55 %. 3. Wall motion abnormalities suggestive of CAD | | | noted, posterior-lateral wall hypokinesis noted. | | + + + + + + | Narrative | Performed At | + + + | Patient Name: BAYRON ULLOA Date of : 1935 | | | Performing Physician: Ry Scales | | | | | | INDICATIONS CHF, CHEST PAIN, HX CAD CONCLUSIONS | | | 1. This was a technically difficult study with suboptimal | | | views. 2. Overall left ventricular systolic function is low-normal | | | with, an EF between 50 - 55 %. 3. Wall motion abnormalities | | | suggestive of CAD noted, posterior-lateral wall hypokinesis noted. | | | FINDINGS -------- ECG rhythm: Sinus rhythm. ECG rhythm: SEE CLIPS | | | 1,2. Study: A 2-dimensional transthoracic echocardiogram with m-mode, | | | spectral and color flow Doppler was perfomed. Study: This was a | | | technically difficult study with suboptimal views. Left Ventricle: | | | Overall left ventricular systolic function is low-normal with, an EF | | | between 50 - 55 %. Left Ventricle: The left ventricle cavity size is | | | normal. Left Ventricle: Left ventricular wall thickness is normal. | | | Left Ventricle: Wall motion abnormalities suggestive of CAD noted, | | | posterior-lateral wall hypokinesis noted. Right Ventricle: The right | | | ventricle is mildly enlarged measuring between 3.4 - 3.7 cm. Right | | | Ventricle: The right ventricular systolic function is at the low end | | | of normal. Left Atrium: The left atrial size is normal. Right | | | Atrium: The right atrium is normal in size. Aortic Valve: The aortic | | | valve is trileaflet. Aortic Valve: The aortic valve is mildly | | | calcified. Aortic Valve: Trace amount of aortic regurgitation. | | | Aortic Valve: There is no evidence of aortic stenosis. Mitral Valve: | | | The mitral valve is normal. Mitral Valve: Mild mitral regurgitation | | | is present. Tricuspid Valve: The tricuspid valve appears structurally | | | normal. Tricuspid Valve: Mild tricuspid regurgitation present. | | | Tricuspid Valve: Right ventricular systolic pressure (pulmonary artery | | | systolic pressure) is normal at < 35 mmHg. Pulmonic Valve: Moderate | | | pulmonic regurgitation. Pericardium: There is no pericardial | | | effusion. IVC/Hepatic Veins: The IVC is normal size (1.5-2.5cm) and | | | collapses >50% with sniff, consistent with central venous pressures of | | | 5-10mmHg. MEASUREMENTS RA Area: 16.46 cm2 Ao | | | asc: 2.31 cm Ao Diam: 2.27 cm Ao sinus: 3.[address] | | | junct: 2.40 cm LA Major: 4.47 cm EDV(Teich): 101.37 ml | | | IVSd: 1.11 cm LVIDd: 4.68 cm LVPWd: 0.94 cm %FS: 26.68 | | | % EF(Teich): 52.15 % ESV(Teich): 48.50 ml IVSs: 1.42 cm | | | LVIDs: 3.43 cm LVPWs: 1.42 cm SV(Teich): 52.87 ml RA | | | Major: 4.57 cm RVIDd: 3.67 cm LAESV(A-L): 31.77 ml LAESV | | | Index (A-L): 15.96 ml/m2 LAAs A2C: 12.09 cm2 LAESV A-L A2C: | | | 28.17 ml LALs A2C: 4.41 cm LAAs A4C: 13.64 cm2 LAESV A-L | | | A4C: 34.73 ml LALs A4C: 4.54 cm Ao Diam: 3.29 cm AV Cusp: | | | 1.81 cm LA Diam: 4.20 cm LA/Ao: 1.27 TAPSE: 1.43 cm | | | IVC diameter: 1.82 cm IVC collapse: 0.89 cm IVC % collapse: | | | 49.33 % HR: 61.92 BPM AV maxP.01 mmHg AV meanP.66 | | | mmHg AV Vmax: 1.41 m/s AV Vmean: 1.04 m/s AV VTI: 31.77 | | | cm HR: 59.58 BPM LVOT maxP.24 mmHg LVOT meanP.65 | | | mmHg LVOT Vmax: 0.90 m/s LVOT Vmean: 0.60 m/s LVOT VTI: | | | 18.51 cm MCO: 678.20 ms MV A Jason: 0.96 m/s MV DecT: 104.89 | | | ms MV E Jason: 0.79 m/s MV E/A Ratio: 0.82 MV PHT: 32.61 ms | | | MVA By PHT: 6.74 cm2 MV A Dur: 128.02 ms Septal e': 0.05 | | | m/s Septal E/e': 14.91 Lateral e': 0.10 m/s Lateral E/e': | | | 7.70 P Vein D: 0.45 m/s P Vein S/D Ratio: 0.96 P Vein S: | | | 0.43 m/s PAEDP: 14.16 mmHg PRend P.16 mmHg PRend Vmax: | | | 1.51 m/s HR: 57.8 BPM PV maxP.03 mmHg PV meanP.56 | | | mmHg PV Vmax: 0.50 m/s PV Vmean: 0.35 m/s PV VTI: 12.26 | | | cm RAP: 5 mmHg RV S': 0.08 m/s RVSP: 32.40 mmHg TR maxPG: | | | 27.40 mmHg TR Vmax: 2.61 m/s TV A Jason: 0.32 m/s TV Dec | | | Sevier: 3.84 m/s2 TV Dec Time: 131.55 ms TV E Jason: 0.50 m/s | | | TV E/A Ratio: 1.55 Project Estimator: [email or web address] Authenticated by: Ry | | | Loyda Report Date/Time: 04-08-2018 10:14:18 | | + + + + -----+ | Procedure Note | + -----+ | Erik, Rad Conversion - 05/12/2019 5:53 AM PDT Patient Name: Baldo ULLOA of | | : 1935 Performing Physician: Ry | | Korimerla INDICATIONS----- | | ------CHF, CHEST PAIN, HX CAD CONCLUSIONS 1. This was a technically difficult | | study with suboptimal views.2. Overall left ventricular systolic function is low-normal | | with, an EF between 50 - 55 %.3. Wall motion abnormalities suggestive of CAD noted, | | posterior-lateral wall hypokinesis noted. FINDINGS--------ECG rhythm: Sinus rhythm.ECG | | rhythm: SEE CLIPS 1,2.Study: A 2-dimensional transthoracic echocardiogram with m-mode, | | spectral and color flow Doppler was perfomed.Study: This was a technically difficult | | study with suboptimal views.Left Ventricle: Overall left ventricular systolic function | | is low-normal with, an EF between 50 - 55 %.Left Ventricle: The left ventricle cavity | | size is normal.Left Ventricle: Left ventricular wall thickness is normal.Left Ventricle: | | Wall motion abnormalities suggestive of CAD noted, posterior-lateral wall hypokinesis | | noted.Right Ventricle: The right ventricle is mildly enlarged measuring between 3.4 - | | 3.7 cm.Right Ventricle: The right ventricular systolic function is at the low end of | | normal.Left Atrium: The left atrial size is normal.Right Atrium: The right atrium is | | normal in size.Aortic Valve: The aortic valve is trileaflet.Aortic Valve: The aortic | | valve is mildly calcified.Aortic Valve: Trace amount of aortic regurgitation.Aortic | | Valve: There is no evidence of aortic stenosis.Mitral Valve: The mitral valve is | | normal.Mitral Valve: Mild mitral regurgitation is present.Tricuspid Valve: The tricuspid | | valve appears structurally normal.Tricuspid Valve: Mild tricuspid regurgitation | | present.Tricuspid Valve: Right ventricular systolic pressure (pulmonary artery systolic | | pressure) is normal at < 35 mmHg.Pulmonic Valve: Moderate pulmonic | | regurgitation.Pericardium: There is no pericardial effusion.IVC/Hepatic Veins: The IVC | | is normal size (1.5-2.5cm) and collapses >50% with sniff, consistent with central venous | | pressures of 5-10mmHg. MEASUREMENTS RA Area: 16.46 cm2Ao asc: 2.31 cmAo | | Diam: 2.27 cmAo sinus: 3.[address] junct: 2.40 cmLA Major: 4.47 cmEDV(Teich): | | 101.37 mlIVSd: 1.11 cmLVIDd: 4.68 cmLVPWd: 0.94 cm%FS: 26.68 %EF(Teich): | | 52.15 %ESV(Teich): 48.50 mlIVSs: 1.42 cmLVIDs: 3.43 cmLVPWs: 1.42 cmSV(Teich): | | 52.87 mlRA Major: 4.57 cmRVIDd: 3.67 cmLAESV(A-L): 31.77 mlLAESV Index (A-L): | | 15.96 ml/m2LAAs A2C: 12.09 dl2COVDO A-L A2C: 28.17 mlLALs A2C: 4.41 cmLAAs A4C: | | 13.64 mm7GDOJX A-L A4C: 34.73 mlLALs A4C: 4.54 cmAo Diam: 3.29 cmAV Cusp: 1.81 | | cmLA Diam: 4.20 cmLA/Ao: 1.27TAPSE: 1.43 cmIVC diameter: 1.82 cmIVC collapse: | | 0.89 cmIVC % collapse: 49.33 %HR: 61.92 BPMAV maxP.01 mmHgAV meanP.66 | | mmHgAV Vmax: 1.41 m/Jessica Vmean: 1.04 m/Jessica VTI: 31.77 cmHR: 59.58 BPMLVOT maxPG: | | 3.24 mmHgLVOT meanP.65 mmHgLVOT Vmax: 0.90 m/sLVOT Vmean: 0.60 m/sLVOT VTI: | | 18.51 cmMCO: 678.20 msMV A Jason: 0.96 m/sMV DecT: 104.89 msMV E Jason: 0.79 m/sMV | | E/A Ratio: 0.82MV PHT: 32.61 msMVA By PHT: 6.74 cm2MV A Dur: 128.02 msSeptal | | e': 0.05 m/sSeptal E/e': 14.91Lateral e': 0.10 m/sLateral E/e': 7.70P Vein D: | | 0.45 m/sP Vein S/D Ratio: 0.96P Vein S: 0.43 m/sPAEDP: 14.16 mmHgPRend P.16 | | mmHgPRend Vmax: 1.51 m/sHR: 57.8 BPMPV maxP.03 mmHgPV meanP.56 mmHgPV | | Vmax: 0.50 m/sPV Vmean: 0.35 m/sPV VTI: 12.26 cmRAP: 5 mmHgRV S': 0.08 | | m/sRVSP: 32.40 mmHgTR maxP.40 mmHgTR Vmax: 2.61 m/sTV A Jason: 0.32 m/sTV Dec | | Sevier: 3.84 m/s2TV Dec Time: 131.55 msTV E Jason: 0.50 m/sTV E/A Ratio: 1.55 | | Project Estimator: [email or web address] by: Ry Vazquez Date/Time: 04-08-2018 10:14:18 | | IMPRESSION: 1. This was a technically difficult study with suboptimal views.2. Overall | | left ventricular systolic function is low-normal with, an EF between 50 - 55 %.3. Wall | | motion abnormalities suggestive of CAD noted, posterior-lateral wall hypokinesis noted. | |Ao asc: 2.31 cm | |Ao Diam: 2.27 cm | |Ao sinus: 3.31 cm | |Ao st junct: 2.40 cm | |LA Major: 4.47 cm | |EDV(Teich): 101.37 ml | |IVSd: 1.11 cm | |LVIDd: 4.68 cm | |LVPWd: 0.94 cm | |%FS: 26.68 % | |EF(Teich): 52.15 % | |ESV(Teich): 48.50 ml | |IVSs: 1.42 cm | |LVIDs: 3.43 cm | |LVPWs: 1.42 cm | |SV(Teich): 52.87 ml | |RA Major: 4.57 cm | |RVIDd: 3.67 cm | |LAESV(A-L): 31.77 ml | |LAESV Index (A-L): 15.96 ml/m2 | |LAAs A2C: 12.09 cm2 | |LAESV A-L A2C: 28.17 ml | |LALs A2C: 4.41 cm | |LAAs A4C: 13.64 cm2 | |LAESV A-L A4C: 34.73 ml | |LALs A4C: 4.54 cm | |Ao Diam: 3.29 cm | |AV Cusp: 1.81 cm | |LA Diam: 4.20 cm | |LA/Ao: 1.27 | |TAPSE: 1.43 cm | |IVC diameter: 1.82 cm | |IVC collapse: 0.89 cm | |IVC % collapse: 49.33 % | |HR: 61.92 BPM | |AV maxP.01 mmHg | |AV meanP.66 mmHg | |AV Vmax: 1.41 m/s | |AV Vmean: 1.04 m/s | |AV VTI: 31.77 cm | |HR: 59.58 BPM | |LVOT maxP.24 mmHg | |LVOT meanP.65 mmHg | |LVOT Vmax: 0.90 m/s | |LVOT Vmean: 0.60 m/s | |LVOT VTI: 18.51 cm | |MCO: 678.20 ms | |MV A Jason: 0.96 m/s | |MV DecT: 104.89 ms | |MV E Jason: 0.79 m/s | |MV E/A Ratio: 0.82 | |MV PHT: 32.61 ms | |MVA By PHT: 6.74 cm2 | |MV A Dur: 128.02 ms | |Septal e': 0.05 m/s | |Septal E/e': 14.91 | |Lateral e': 0.10 m/s | |Lateral E/e': 7.70 | |P Vein D: 0.45 m/s | |P Vein S/D Ratio: 0.96 | |P Vein S: 0.43 m/s | |PAEDP: 14.16 mmHg | |PRend P.16 mmHg | |PRend Vmax: 1.51 m/s | |HR: 57.8 BPM | |PV maxP.03 mmHg | |PV meanP.56 mmHg | |PV Vmax: 0.50 m/s | |PV Vmean: 0.35 m/s | |PV VTI: 12.26 cm | |RAP: 5 mmHg | |RV S': 0.08 m/s | |RVSP: 32.40 mmHg | |TR maxP.40 mmHg | |TR Vmax: 2.61 m/s | |TV A Jason: 0.32 m/s | |TV Dec Sevier: 3.84 m/s2 | |TV Dec Time: 131.55 ms | |TV E Jason: 0.50 m/s | |TV E/A Ratio: 1.55 | | | |Project Estimator: [email or web address] | |Authenticated by: Ry Scales | |Report Date/Time: 04-08-2018 10:14:18 | | | |IMPRESSION: | |1. This was a technically difficult study with suboptimal views. | |2. Overall left ventricular systolic function is low-normal with, an EF between 50 - 55 %. | |3. Wall motion abnormalities suggestive of CAD noted, posterior-lateral wall hypokinesis no andrae. | + -----+ PTT (04/08/2018 6:35 AM PDT) + + + + + + | Component | Value | Ref Range | Performed | Pathologist | | | | | At | Signature | + + + + + + | aPTT, | 62 (H)Comment: Testing | 23 - 32 seconds | EXTERNAL | | | Patient | performed at [facility];[address] | | LAB | | | | [address] | | | | | | [address] | | | | + + + + + + + + | Specimen | + + | Blood specimen | | (specimen) | + + + +---------+ + + | Performing | Address | City/State/Zipcode | Phone Number | | Organization | | | | + +---------+ + + | EXTERNAL LAB | | | | + +---------+ + + ECG 12 lead (04/08/2018 4:00 AM PDT) + + + + + + | Component | Value | Ref Range | Performed | Pathologist | | | | | At | Signature | + + + + + + | DIAGNOSIS: | Sinus rhythm with 1st | | EXTERNAL | | | | degree A-V block with | | LAB | | | | occasional Premature | | | | | | ventricular | | | | | | complexesOtherwise | | | | | | normal ECGWhen compared | | | | | | with ECG of 28-JAN-2007 | | | | | | 05:24,Sinus rhythm has | | | | | | replaced Junctional | | | | | | rhythmConfirmed by | | | | | | SURINDER VASQUES MD ([id number]) | | | | | | on 04/08/2018 7:20:43 PM | | | | + + + + + + + + | Specimen | + + | | + + + + + | Narrative | Performed At | + + + | Historically converted procedure from [facility] environment | EXTERNAL LAB | + + + + +---------+ + + | Performing | Address | City/State/Zipcode | Phone Number | | Organization | | | | + +---------+ + + | EXTERNAL LAB | | | | + +---------+ + + Troponin I (04/08/2018 2:31 AM PDT) + + + + + + | Component | Value | Ref Range | Performed | Pathologist | | | | | At | Signature | + + + + + + | Troponin I, | 13.7 ()Comment: 0.00 | 0.00 - 0.10 | EXTERNAL | | | Qual | to 0.10 CONSISTENT | ng/mL | LAB | | | | WITH NORMAL | | | | | | POPULATION0.11 to 0.60 | | | | | | CONSISTENT WITH | | | | | | INCREASED RISK FOR | | | | | | ADVERSE OUTCOMES> 0.60 | | | | | | CONSISTENT | | | | | | WITH WHO CRITERIA FOR | | | | | | ACUTE UT CALLED NURSING | | | | | | LINDENIDALMIS M AT 0317 | | | | | | BY RHREAD BACK RESULTS | | | | | | VERIFIEDTesting | | | | | | performed at [facility];[address] | | | | | | [address];[place], [place] | | | | | | [address] | | | | + + + [...] + +---------+ + + External Lab: CBC (04/08/2018 2:31 AM PDT) + + + + + + | Component | Value | Ref Range | Performed | Pathologist | | | | | At | Signature | + + + + + + | WBC | 10.32 | 3.80 - 11.00 | EXTERNAL | | | | | K/uL | LAB | | + + + + + + | Non- | 4.42 | 4.20 - 5.70 | EXTERNAL | | | Red Blood | | M/uL | LAB | | | Cells | | | | | | Counted | | | | | + + + + + + | Hemoglobin | 13.6 | 13.2 - 17.0 | EXTERNAL | | | | | g/dL | LAB | | + + + + + + | Hematocrit, | 39.8 | 39.0 - 50.0 % | EXTERNAL | | | POC | | | LAB | | + + + + + + | MCV | 89.9 | 80.0 - 100.0 fl | EXTERNAL | | | | | | LAB | | + + + + + + | MCH | 30.7 | 27.0 - 34.0 pg | EXTERNAL | | | | | | LAB | | + + + + + + | MCHC | 34.2 | 32.0 - 35.5 | EXTERNAL | | | | | g/dL | LAB | | + + + + + + | RDW-CV | 43.3 | 37 - 53 fl | EXTERNAL | | | | | | LAB | | + + + + + + | Platelet | 172 | 150 - 400 K/uL | EXTERNAL | | | Count | | | LAB | | | Plasma | | | | | + + + + + + | MPV | 9.1 | fl | EXTERNAL | | | | | | LAB | | + + + + + + | Differentia | AUTOMATED | | EXTERNAL | | | l Type | | | LAB | | + + + + + + | % Segmented | 77.55 | % | EXTERNAL | | | | | | LAB | | | Neutrophils | | | | | + + + + + + | % | 14.35 | % | EXTERNAL | | | Lymphocytes | | | LAB | | + + + + + + | % Monocytes | 6.83 | % | EXTERNAL | | | | | | LAB | | + + + + + + | % | 0.71 | % | EXTERNAL | | | Eosinophils | | | LAB | | + + + + + + | % Basophils | 0.56 | % | EXTERNAL | | | | | | LAB | | + + + + + + | Absolute | 8.01 (H) | 1.90 - 7.40 | EXTERNAL | | | Segmented | | K/uL | LAB | | | Neutrophils | | | | | + + + + + + | Absolute | 1.48 | 1.00 - 3.90 | EXTERNAL | | | Lymphocytes | | K/uL | LAB | | + + + + + + | Absolute | 0.71 | 0.00 - 0.80 | EXTERNAL | | | Monocytes | | K/uL | LAB | | + + + + + + | Absolute | 0.07 | 0.00 - 0.50 | EXTERNAL | | | Eosinophils | | K/uL | LAB | | + + + + + + | Absolute | 0.06Comment: Testing | 0.00 - 0.10 | EXTERNAL | | | Basophils | performed at [facility], [address] | K/uL | LAB | | | | [address], | | | | | | [place] [address] | | | | + + + + + + + + | Specimen | + + | Blood specimen | | (specimen) | + + + +---------+ + + | Performing | Address | City/State/Zipcode | Phone Number | | Organization | | | | + +---------+ + + | EXTERNAL LAB | | | | + +---------+ + + TSH (04/08/2018 2:31 AM PDT) + + + + + + | Component | Value | Ref Range | Performed | Pathologist | | | | | At | Signature | + + + + + + | TSH | 0.725Comment: Testing | 0.450 - 5.100 | EXTERNAL | | | | performed at [facility], [address] | uIU/mL | LAB | | | | [address], | | | | | | [place] [address] | | | | + + + + + + + + | Specimen | + + | Blood specimen | | (specimen) | + + + +---------+ + + | Performing | Address | City/State/Zipcode | Phone Number | | Organization | | | | + +---------+ + + | EXTERNAL LAB | | | | + +---------+ + + B Type Natriuretic Peptide (04/08/2018 2:31 AM PDT) + + + + + + | Component | Value | Ref Range | Performed | Pathologist | | | | | At | Signature | + + + + + + | BNP | 277 (H)Comment: Testing | 0 - 100 pg/mL | EXTERNAL | | | | performed at [facility];[address] | | LAB | | | | [address] [facility];[place], [place] | | | | | | [address] | | | | + + + + + + + + | Specimen | + + | Blood specimen | | (specimen) | + + + +---------+ + + | Performing | Address | City/State/Zipcode | Phone Number | | Organization | | | | + +---------+ + + | EXTERNAL LAB | | | | + +---------+ + + Basic Metabolic Panel (04/08/2018 2:31 AM PDT) + + + + + + | Component | Value | Ref Range | Performed | Pathologist | | | | | At | Signature | + + + + + + | Na | 141 | 135 - 145 | EXTERNAL | | | | | mmol/L | LAB | | + + + + + + | K | 3.6 | 3.5 - 4.9 | EXTERNAL | | | | | mmol/L | LAB | | + + + + + + | Cl | 104 | 99 - 109 mmol/L | EXTERNAL | | | | | | LAB | | + + + + + + | CO2 | 30 | 23 - 32 mmol/L | EXTERNAL | | | | | | LAB | | + + + + + + | Anion Gap | 11 | 5 - 20 mmol/L | EXTERNAL | | | | | | LAB | | + + + + + + | Glucose, | 145 (H) | 65 - 99 mg/dL | EXTERNAL | | | Fasting | | | LAB | | + + + + + + | BUN | 21 | 8 - 25 mg/dL | EXTERNAL | | | | | | LAB | | + + + + + + | Creatinine | 1.0 | 0.70 - 1.30 | EXTERNAL | | | | | mg/dL | LAB | | + + + + + + | BUN/Creatin | 21 | | EXTERNAL | | | ine Ratio | | | LAB | | + + + + + + | Calcium | 8.9 | 8.5 - 10.5 | EXTERNAL | | | | | mg/dL | LAB | | + + + + + + | Estimated | >60Comment: GFR <60: | mL/min/1.73m2 | EXTERNAL | | | GFR | CHRONIC KIDNEY DISEASE, | | LAB | | | | IF FOUND OVER A 3 MONTH | | | | | | PERIOD.GFR <15: KIDNEY | | | | | | FAILURE.FOR | | | | | | AMERICANS, MULTIPLY THE | | | | | | CALCULATED GFR BY | | | | | | 1.210.This eGFR is | | | | | | calculated using the | | | | | | MDRD IDOK traceable | | | | | | equation.Testing | | | | | | performed at [facility], [address] | | | | | | [facility], | | | | | | [place] [address] | | | | + + + + + + + + | Specimen | + + | Blood specimen | | (specimen) | + + + +---------+ + + | Performing | Address | City[facility] | Phone Number | | Organization | | | | + +---------+ + + | EXTERNAL LAB | | | | + +---------+ + + PTT (04/08/2018 12:41 AM PDT) + + + + + + | Component | Value | Ref Range | Performed | Pathologist | | | | | At | Signature | + + + + + + | aPTT, | 87 ()Comment: PTT | 23 - 32 seconds | EXTERNAL | | | Patient | PHONED TO U VIV M | | LAB | | | | AT 0150 BY ASHVIN BACK | | | | | | RESULTS VERIFIEDTesting | | | | | | performed at [facility];[address] | | | | | | [address];[place] | | | | | | [address] | | | | + + + + + + + + | Specimen | + + | Blood specimen | | (specimen) | + + + +---------+ + + | Performing | Address | City/State/Zipcode | Phone Number | | Organization | | | | + +---------+ + + | EXTERNAL LAB | | | | + +---------+ + + Protime INR (04/08/2018 12:41 AM PDT) + + + + + + | Component | Value | Ref Range | Performed | Pathologist | | | | | At | Signature | + + + + + + | INR | 1.0Comment: REFERENCE | | EXTERNAL | | | | RANGE:0.9 - 1.2 | | LAB | | | | NON-ANTICOAGULATED2.0 | | | | | | - 3.0 ALL OTHER | | | | | | THERAPEUTIC | | | | | | INDICATIONS2.5 - 3.5 | | | | | | MECHANICAL HEART VALVES, | | | | | | RECURRENT OR SYSTEMIC | | | | | | EMBOLISMTesting | | | | | | performed at [facility];[address] | | | | | | [facility];[place], [place] | | | | | | [address] | | | | + + + + + + + + | Specimen | + + | Blood specimen | | (specimen) | + + + +---------+ + + | Performing | Address | City/State/Zipcode | Phone Number | | Organization | | | | + +---------+ + + | EXTERNAL LAB | | | | + +---------+ + + Troponin I (04/07/2018 10:32 PM PDT) + + + + + + | Component | Value | Ref Range | Performed | Pathologist | | | | | At | Signature | + + + + + + | Troponin I, | 2.36 ()Comment: 0.00 | 0.00 - 0.10 | EXTERNAL | | | Qual | to 0.10 CONSISTENT | ng/mL | LAB | | | | WITH NORMAL | | | | | | POPULATION0.11 to 0.60 | | | | | | CONSISTENT WITH | | | | | | INCREASED RISK FOR | | | | | | ADVERSE OUTCOMES> 0.60 | | | | | | CONSISTENT | | | | | | WITH WHO CRITERIA FOR | | | | | | ACUTE UT CALLED | | | | | | RESULTSREAD BACK RESULTS | | | | | | ARSH /NIYA AT | | | | | | 9285 BY MAHTesting | | | | | | performed at [facility];[address] | | | | | | [address];[place] | | | | | | [address] | | | | + + + [...]
--- OUTSIDE RECORDS SUMMARY | ~2020-04-22 | XMS | Encounter Summary ---
Demographics + + + | Address | [address] | | | [place] [address] | + + + | Home Phone | | + + + | Preferred Language | Unknown | + + + | Marital Status | | + + + | Evangelical Affiliation | 1077 | + + + | Race | Unknown | + + + | Ethnic Group | Unknown | + + + Author + + + | Author | [facility] | | | and [place] | + + + | Organization | [facility] | | | and [...] [place] | | | | | [address] | | + + + + + | Arin Ulloa | ECON | Unknown | | + + + + + Care Team Providers + +------+ + | Care Color Straining Bag Washer Name | Role | Phone | + +------+ + | Fabricio Bah | PCP | | | MD | | | + +------+ + Reason for Visit + + + | Reason | Comments | + + + | Medication Refill | Clopidogrel | + + + Encounter Details +--------+--------+ + + + | Date | Type | Department | Care Team | Description | +--------+--------+ + + + | 11/17/ | Refill | [facility] | Andrade Hobbs, | Medication Refill | | 2020 | | CARDIOLOGY [facility] | MD Curtis ESPARZA | (Clopidogrel) | | | | [address] | [address] [place], [place] | | | | | [place] [address] | [address] | | | | | [place] | | | | | | [address] | | | | | | [phone] | | | +--------+--------+ + + + [...] [place] | | | | | | [address] | | | | | | | | +--------+---------+ + + + documented as of this encounter Visit Diagnoses Not on filedocumented in this encounter"
--- OUTSIDE RECORDS SUMMARY | ~2020-04-22 | XMS | Encounter Summary ---
Demographics + + + | Address | [address] | | | [place] [address] | + + + | Home Phone | | + + + | Preferred Language | Unknown | + + + | Marital Status | | + + + | Gnosticist Affiliation | 1077 | + + + [...] [place] | | | | | [address] | | + + + + + | Arin Ulloa | ECON | Unknown | | + + + + + Care Team Providers + +------+ + | Care Artillery Maintenance Supervisor Name | Role | Phone | + [...] Description | +--------+---------+ + + + | 11/03/ | Office | [facility] | [facility] | Stable angina (HCC) | | 2020 | Visit | CARDIOLOGY [place] | MD Curtis ESPARZA | (Primary Dx); | | | | [address] | [place], [place] | Chronic systolic | | | | [address] [address] | [address] | heart failure (HCC); | | | | [place] | | Coronary artery | | | | [address] | | disease of bypass | | | | [phone] | | graft of douglas | | | | | | heart [...] + + + | Blood Pressure | 110/52 | 11/03/2019 10:59 AM | | | | | PST | | + + + + + | Pulse | 59 | 11/03/2019 10:59 AM | | | | | PST | | + + + + + | Temperature | - | - | | + + + + + | Respiratory Rate | - | - | | + + + + + | Oxygen Saturation | 95% | 11/03/2019 10:59 AM | | | | | PST | | + + + + + | Inhaled Oxygen | - | - | | | Concentration | | | | + + + + + | Weight | 80.3 kg (177 lb) | 11/03/2019 10:59 AM | | | | | PST | | + + + + + | Height | 175.3 cm (5' 9") | 11/03/2019 10:59 AM | | | | | PST | | + + + + + | Body Mass Index | 26.14 | 11/03/2019 10:59 AM | | | | | PST | | + + + + + documented in this encounter Progress Notes Andrade Garcia MD - 11/03/2019 11:00 AM PSTFormatting of this note might be different f rom the original. Date of visit: 11/03/2019 Primary Care Physician: Fabricio Bah MD CHIEF COMPLAINT: Chief Complaint Patient presents with Follow-up HISTORY OF PRESENT ILLNESS: Deep is 83 y.o. here for Complex past medical history. Previous coronary artery disease, CA BG, unstable angina. No recurrent episodes of angina. Currently on metoprolol succinate was decreased to 25 mg once daily. Isosorbide was increased to 60 mm in a.m. and 30 p.m. since last evaluation no change in me dication. No recurrent anginal symptoms. Weight has been stable. Limited activity level due to hip and lower back pain. Monitor his blood pressure at home and it has been controlled. Since prior encounter no further hospitalization. No further GI bleed. Restarted on benzodiazepine secondary to depression. Has been having increased fatigue lately. Last hospitalization in [facility] on 07 April 2018 secondary to non-ST elevation CO. L eft heart catheterization showed severe three-vessel [...] chart. Medications: Outpatient Encounter Medications as of 11/03/2019 Medication Sig Dispense Refill aspirin 81 MG tablet Take 81 mg by mouth daily. cholecalciferol (VITAMIN D-3) 25 mcg (1,000 units) tablet Take 25 mcg by mouth Daily. citalopram (CELEXA) 20 mg tablet Take 20 mg by mouth Daily. clopidogrel (PLAVIX) 75 mg tablet Take 1 tablet by mouth daily. 90 tablet 3 Fish Oil 1000 MG delayed release capsule Take 1 g by mouth daily. isosorbide mononitrate 60 mg ER tablet Take 1.5 tablets by mouth Daily. 135 tablet 3 [DISCONTINUED] latanoprost (XALATAN) 0.005% ophthalmic solution Place 1 drop into the r ight eye nightly. lisinopril (PRINIVIL, ZESTRIL) 10 mg tablet TAKE 1 TABLET DAILY 90 tablet 1 metoprolol succinate (TOPROL-XL) 25 mg 24 hr tablet Take 1 tablet by mouth Daily. 90 ta blet 3 nepafenac (ILEVRO) 0.3% ophthalmic suspension Place 1 drop into the right eye Daily. nitroglycerin (NITROSTAT) 0.[address] 1 tablet under the tongue every 5 (fiv e) minutes as needed for Chest pain. 25 tablet 11 prednisoLONE (PRED FORTE) 1% ophthalmic suspension 1 drop 4 times daily. predniSONE (DELTASONE) 5 mg tablet TAKE 1 TABLET DAILY WITH BREAKFAST 90 tablet 1 sodium chloride (LORIN 128) 5% ophthalmic solution 1 drop as needed. sulfaSALAzine (AZULFIDINE) 500 mg tablet take 1 tablet by mouth twice a day 180 tablet 0 timolol maleate (TIMOPTIC) 0.5% ophthalmic solution Place 1 drop into the right eye Claribel ly. zolpidem (AMBIEN) 10 mg tablet Take 10 mg by mouth nightly as needed for Insomnia. No facility-administered encounter medications on file as of 11/03/2019. Allergies Allergies Allergen Reactions Adhesive & Tape Other (See Comments) Adhesives in tape. Skin very fragile. Pravastatin Other (See Comments) Myalgias, myositis REVIEW OF SYSTEMS: Constitutional: Positive for fatigue. No fever, chills, and rigors. No report of weight ch jackelin. HEENT: Negative for nosebleeds, ear discharge, nasal congestion or soar throat. Eyes: Impaired vision, especially in the right eye. Respiratory: Negative for cough, sputum production, hemoptysis, [...] or anxiety. PHYSICAL EXAM Vital Signs: BP 110/52 | Pulse 59 | Ht 1.753 m (5' 9") | Wt 80.3 kg (177 lb) | SpO2 95% | BMI 26.14 kg/m GENERAL APPEARANCE: Alert, oriented, cooperative, no [...] Results Component Value Date/Time NA 142 08/02/2019 02:17 PM NA 141 12/28/2018 01:13 PM NA 141 10/15/2018 01:45 PM K 4.4 08/02/2019 02:17 PM K 4.4 12/28/2018 01:13 PM K 4.8 10/15/2018 01:45 PM CO2 32 08/02/2019 02:17 PM CO2 33 (H) 12/28/2018 01:13 PM CO2 27 10/15/2018 01:45 PM BUN 25 08/02/2019 02:17 PM BUN 24 12/28/2018 01:13 PM BUN 25 (A) 10/15/2018 01:45 PM LABCREA 1.1 12/28/2018 01:13 PM LABCREA 1.14 (A) 10/15/2018 01:45 PM LABCREA 1.1 07/29/2018 01:08 PM CALCIUM 8.7 08/02/2019 02:17 PM CALCIUM 9.1 12/28/2018 01:13 PM CALCIUM 9.5 10/15/2018 01:45 PM CALCIUM 8.9 07/29/2018 01:08 PM MG 2.3 04/13/2018 04:01 AM MG 2.1 04/12/2018 04:26 AM MG 2.2 04/11/2018 04:18 AM Lab Results Component Value Date/Time WBC 8.66 08/02/2019 02:17 PM WBC 9.13 12/28/2018 01:13 PM WBC 9.5 10/15/2018 01:45 PM WBC 9.67 07/29/2018 01:08 PM HGB 14.3 08/02/2019 02:17 PM HGB 13.9 12/28/2018 01:13 PM HGB 15.0 10/15/2018 01:45 PM HGB 14.0 07/29/2018 01:08 PM HCT 41.9 08/02/2019 02:17 PM MCV 98.0 08/02/2019 02:17 PM MCV 95.9 12/28/2018 01:13 PM MCV 97.3 10/15/2018 01:45 PM MCV 94.3 07/29/2018 01:08 PM Lab Results Component Value Date GLUF 152 (H) 12/28/2018 GLUF 106 (A) 10/15/2018 TSH 0.725 04/08/2018 EC06/09/2019 Ordered and reviewed by myself showed sinus bradycardia with long first-degree AV block, MO interval of almost 400 ms. Last Echo: [...] Severe 3 vessel Coronary artery disease with MANUSCRIPTS CURATOR of RCA. MANUSCRIPTS CURATOR of RI. Patent RAM to LAD. Severe [...] 4. History of GIB with no reoccurrence. 5. Dyslipidemia. 6. Mild ischemic cardiomyopathy. 7. Premature ventricular contractions with total burden of 4.6%. Plan: Symptoms have been controlled with isosorbide increased dose. Continue with metoprolol dose to 25 mg p.o. daily. Continue lisinopril 10 mg p.o. daily. Continue with isosorbide mononitrate to 90 mg p.o. daily, can take 60 in the morning and 30 in afternoon if needed. No evidence of volume overload. Tolerating antiplatelet therapy with clopidogrel and aspirin. Clopidogrel can be held 5 to 7 days prior to any surgical intervention. Follow-up in 3 to 4 months or [...] 08/23/ | Office | Cardiology | Andrade Garcia, | | | 2019 | Visit | | MD Curtis ESPARZA | | | | | | 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
--- OUTSIDE RECORDS SUMMARY | ~2020-04-22 | XMS | Encounter Summary ---
Demographics + + + | Address | [address] | | | [place] [address] | + + + | Home Phone [...] [place] | | | | | [address] | | + + + + + | Arin Ulloa | ECON | Unknown | | + + + + + Care Team Providers + +------+ + | Care General Maintenance Technician Name | Role | Phone | + +------+ + | Fabricio Bah | PCP | | | MD | | | + +------+ + Encounter Details +--------+ + + + + | Date | Type | Department | Care Team | Description | +--------+ + + + + | 05/08/ | Orders Only | [facility] | Chasity Vangeas | Other forms of | | 2019 | | CARDIOLOGY [place] | MD Samina [address] | angina pectoris | | | | [address] | [address] [place], [place] | (HCC); Essential | | | | [place], [place] | [address] | (primary) | | | | [address] | | hypertension; | | | | [phone] | | Atherosclerosis of | | | | | | coronary artery | | | | | | bypass graft(s), | | | | | | unspecified, with | | | | | | other forms of | | | | | | angina pectoris | | | | | | (HCC); Other | | | | | | fatigue; Chronic | | | | | | systolic congestive | | | | | | heart failure ([facility]); | | | | | | Other detention | | | | | | (current) drug | | | | | | therapy; Rheumatoid | | | | | | arthritis of | | | | | | multiple sites | | | | | | without rheumatoid | | | | | | factor (HCC) | +--------+ + + + + Social [...] | | 2019 | Visit | | [address] | | | | | | [place] | | | | | | [address] | | | | | | | | +--------+---------+ + + + + +------+--------+ + + | Name | Type | Priori | Associated Diagnoses | Order Schedule | | | | ty | | | + +------+--------+ + + | CBC with Manual | Lab | Routin | Other forms of | Expected: | | Differential | | e | angina pectoris | 10/14/2018, Expires: | | | | | (HCC) Essential | 10/14/2019 | | | | | (primary) | | | | | | hypertension | | | | | | Atherosclerosis of | | | | | | coronary artery | | | | | | bypass graft(s), | | | | | | unspecified, with | | | | | | other forms of | | | | | | angina pectoris | | | | | | (HCC) Other fatigue | | | | | | Chronic systolic | | | | | | congestive heart | | | | | | failure (HCC) | | + +------+--------+ + + | B Type Natriuretic | Lab | Routin | Other forms of | Expected: | | Peptide | | e | angina pectoris | 10/14/2018, Expires: | | | | | (HCC) Essential | 10/14/2019 | | | | | (primary) | | | | | | hypertension | | | | | | Atherosclerosis of | | | | | | coronary artery | | | | | | bypass graft(s), | | | | | | unspecified, with | | | | | | other forms of | | | | | | angina pectoris | | | | | | (HCC) Other fatigue | | | | | | Chronic systolic | | | | | | congestive heart | | | | | | failure (HCC) | | + +------+--------+ + + | Basic Metabolic | Lab | Routin | Other forms of | Expected: | | Panel | | e | angina pectoris | 10/14/2018, Expires: | | | | | (HCC) Essential | 10/14/2019 | | | | | (primary) | | | | | | hypertension | | | | | | Atherosclerosis of | | | | | | coronary artery | | | | | | bypass graft(s), | | | | | | unspecified, with | | | | | | other forms of | | | | | | angina pectoris | | | | | | (HCC) Other fatigue | | | | | | Chronic systolic | | | | | | congestive heart | | | | | | failure (HCC) | | + +------+--------+ + + | CBC with | Lab | Routin | Other detention | 3 Occurrences | | Differential | | e | (current) drug | starting 05/14/2019 | | | | | therapy Rheumatoid | until 12/26/2019, 1 | | | | | arthritis of | completed | | | | | multiple sites | | | | | | without rheumatoid | | | | | | factor (HCC) | | + +------+--------+ + + | Comprehensive | Lab | Routin | Other intermodal dispatcher | 3 Occurrences | | Metabolic Panel | | e | (current) drug | starting 05/14/2019 | | | | | therapy Rheumatoid | until 12/26/2019, 1 | | | | | arthritis of | completed | | | | | multiple sites | | | | | | without rheumatoid | | | | | | factor (HCC) | | + +------+--------+ + + | Sedimentation Rate | Lab | Routin | Other detention | 3 Occurrences | | | | e | (current) drug | starting 05/14/2019 | | | | | therapy Rheumatoid | until 12/26/2019, 1 | | | | | arthritis of | completed | | | | | multiple sites | | | | | | without rheumatoid | | | | | | factor (HCC) | | + +------+--------+ + + documented as of this encounter Results Sedimentation Rate (08/02/2019 2:17 PM PST) + + + + + + | Component | Value | Ref Range | Performed | Pathologist | | | | | At | Signature | + + + + + + | ESR | 8Comment: Testing | 0 - 20 mm/Hr | REFERENCE | | | | performed at [facility];[address] | | LAB | | | | [place] | | [facility] | | | | [address];[place] [address] | | LABORATORY | | + + + + + + + + | Specimen | + + | Blood | + + + + + + + | Performing | Address | City/State/Zipcode | Phone Number | | Organization | | | | + + + + + | REFERENCE LAB | [address] [place] [address] | [place], [place] | [phone] | | [facility] | [address] | [address] | | | LABORATORY | | | | + + + + + | REFERENCE LAB | [address] [place] [address] | [place], [place] | | | [facility] | [address] | [address] | | | LABORATORY | | | | + + + + + Comprehensive Metabolic Panel (08/02/2019 2:17 PM PST) + + + + + + | Component | Value | Ref Range | Performed | Pathologist | | | | | At | Signature | + + + + + + | Na | 142 | 135 - 145 | REFERENCE | | | | | mmol/L | LAB | | | | | | [facility] | | | | | | LABORATORY | | + + + + + + | K | 4.4 | 3.5 - 4.9 | REFERENCE | | | | | mmol/L | LAB | | | | | | [facility] | | | | | | LABORATORY | | + + + + + + | Cl | 105 | 99 - 109 mmol/L | REFERENCE | | | | | | LAB | | | | | | [facility] | | | | | | LABORATORY | | + + + + + + | CO2 | 32 | 23 - 32 mmol/L | REFERENCE | | | | | | LAB | | | | | | [facility] | | | | | | LABORATORY | | + + + + + + | Anion Gap | 9 | 5 - 20 mmol/L | REFERENCE | | | | | | LAB | | | | | | [facility] | | | | | | LABORATORY | | + + + + + + | Glucose | 117 (H) | 65 - 99 mg/dL | REFERENCE | | | | | | LAB | | | | | | [facility] | | | | | | LABORATORY | | + + + + + + | BUN | 25 | 8 - 25 mg/dL | REFERENCE | | | | | | LAB | | | | | | [facility] | | | | | | LABORATORY | | + + + + + + | Creatinine | 1.2 | 0.70 - 1.30 | REFERENCE | | | | | mg/dL | LAB | | | | | | [facility] | | | | | | LABORATORY | | + + + + + + | BUN/Creatin | 21 | | REFERENCE | | | ine Ratio | | | LAB | | | | | | [facility] | | | | | | LABORATORY | | + + + + + + | Calcium | 8.7 | 8.5 - 10.5 | REFERENCE | | | | | mg/dL | LAB | | | | | | [facility] | | | | | | LABORATORY | | + + + + + + | Protein, | 6.4 | 6.3 - 8.2 g/dL | REFERENCE | | | Total | | | LAB | | | | | | [facility] | | | | | | LABORATORY | | + + + + + + | Albumin | 3.6 | 3.3 - 4.8 g/dL | REFERENCE | | | | | | LAB | | | | | | [facility] | | | | | | LABORATORY | | + + + + + + | Globulin | 2.8 | 1.3 - 4.9 g/dL | REFERENCE | | | | | | LAB | | | | | | [facility] | | | | | | LABORATORY | | + + + + + + | A/G Ratio | 1.3 | 1.0 - 2.4 | REFERENCE | | | | | | LAB | | | | | | [facility] | | | | | | LABORATORY | | + + + + + + | BILIRUBIN, | 0.6 | 0.1 - 1.5 mg/dL | REFERENCE | | | TOTAL | | | LAB | | | | | | [facility] | | | | | | LABORATORY | | + + + + + + | ALK PHOS | 88 | 35 - 115 U/L | REFERENCE | | | | | | LAB | | | | | | [facility] | | | | | | LABORATORY | | + + + + + + | AST | 20 | 10 - 45 U/L | REFERENCE | | | | | | LAB | | | | | | [facility] | | | | | | LABORATORY | | + + + + + + | ALT | 23 | 10 - 65 U/L | REFERENCE | | | | | | LAB | | | | | | [facility] | | | | | | LABORATORY | | + + + + + + | Estimated | 58 (L)Comment: GFR <60: | >60 | REFERENCE | | | GFR | CHRONIC KIDNEY DISEASE, | mL/min/1.73m2 | LAB | | | | IF FOUND OVER A 3 MONTH | | [facility] | | | | PERIOD.GFR <15: KIDNEY | | LABORATORY | | | | FAILURE.FOR | | [...] | | | | | performed at [facility];[address] | | | | | | [facility] | | | | | | Blvd;[place] [address] | | | | | | | | | | + + + + + + + + | Specimen | + + | Blood | + + + + + + + | Performing | Address | City/State/Zipcode | Phone Number | | Organization | | | | + + + + + | REFERENCE LAB | [address] | [place] | [phone] | | [facility] | [address] | [address] | | | LABORATORY | | | | + + + + + | REFERENCE LAB | [address] | [place], [place] | | | [facility] | Blvd. | [address] | | | LABORATORY | | | | + + + + + CBC with Differential (08/02/2019 2:17 PM PST) + + + + + + | Component | Value | Ref Range | Performed | Pathologist | | | | | At | Signature | + + + + + + | WBC | 8.66 | 3.80 - 11.00 | REFERENCE | | | | | K/uL | LAB | | | | | | [facility] | | | | | | LABORATORY | | + + + + + + | Red Blood | 4.27 | 4.20 - 5.70 | REFERENCE | | | Cells | | M/uL | LAB | | | | | | [facility] | | | | | | LABORATORY | | + + + + + + | Hemoglobin | 14.3 | 13.2 - 17.0 | REFERENCE | | | | | g/dL | LAB | | | | | | [facility] | | | | | | LABORATORY | | + + + + + + | Hematocrit | 41.9 | 39.0 - 50.0 % | REFERENCE | | | | | | LAB | | | | | | [facility] | | | | | | LABORATORY | | + + + + + + | MCV | 98.0 | 80.0 - 100.0 fl | REFERENCE | | | | | | LAB | | | | | | [facility] | | | | | | LABORATORY | | + + + + + + | MCH | 33.6 | 27.0 - 34.0 pg | REFERENCE | | | | | | LAB | | | | | | [facility] | | | | | | LABORATORY | | + + + + + + | MCHC | 34.2 | 32.0 - 35.5 | REFERENCE | | | | | g/dL | LAB | | | | | | [facility] | | | | | | LABORATORY | | + + + + + + | RDW-SD | 44.6 | 37 - 53 fl | REFERENCE | | | | | | LAB | | | | | | [facility] | | | | | | LABORATORY | | + + + + + + | Platelet | 167 | 150 - 400 K/uL | REFERENCE | | | Count | | | LAB | | | | | | [facility] | | | | | | LABORATORY | | + + + + + + | MPV | 10.0 | fl | REFERENCE | | | | | | LAB | | | | | | [facility] | | | | | | LABORATORY | | + + + + + + | Diff Type | AUTOMATED | | REFERENCE | | | | | | LAB | | | | | | [facility] | | | | | | LABORATORY | | + + + + + + | % | 76.92 | % | REFERENCE | | | Neutrophils | | | LAB | | | | | | [facility] | | | | | | LABORATORY | | + + + + + + | % | 13.94 | % | REFERENCE | | | Lymphocytes | | | LAB | | | | | | [facility] | | | | | | LABORATORY | | + + + + + + | Monocyte % | 5.52 | % | REFERENCE | | | | | | LAB | | | | | | [facility] | | | | | | LABORATORY | | + + + + + + | Eosinophils | 2.71 | % | REFERENCE | | | % | | | LAB | | | | | | [facility] | | | | | | LABORATORY | | + + + + + + | Basophils % | 0.91 | % | REFERENCE | | | | | | LAB | | | | | | [facility] | | | | | | LABORATORY | | + + + + + + | Neutrophils | 6.66 | 1.90 - 7.40 | REFERENCE | | | , Absolute | | K/uL | LAB | | | | | | [facility] | | | | | | LABORATORY | | + + + + + + | Absolute | 1.21 | 1.00 - 3.90 | REFERENCE | | | Lymphocytes | | K/uL | LAB | | | | | | [facility] | | | | | | LABORATORY | | + + + + + + | Absolute | 0.48 | 0.00 - 0.80 | REFERENCE | | | Monocytes | | K/uL | LAB | | | | | | [facility] | | | | | | LABORATORY | | + + + + + + | Eosinophils | 0.24 | 0.00 - 0.50 | REFERENCE | | | , Absolute | | K/uL | LAB | | | | | | [facility] | | | | | | LABORATORY | | + + + + + + | Basophils, | 0.08Comment: Testing | 0.00 - 0.10 | REFERENCE | | | Absolute | performed at [facility];[address] | [address] | LAB | | | | [place] | | [facility] | | | | [address];[place] [address] | | LABORATORY | | + + + + + + + + | Specimen | + + | Blood | + + + + + + + | Performing | Address | City/State/Zipcode | Phone Number | | Organization | | | | + + + + + | REFERENCE LAB | [address] | [place] | [phone] | | [facility] | [address] | [address] | | | LABORATORY | | | | + + + + + | REFERENCE LAB | [address] | [place], [place] | | | [facility] | [address]vd[address] 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
--- OUTSIDE RECORDS SUMMARY | ~2020-04-22 | XMS | Encounter Summary ---
Demographics + + + | Address | [address] | | | [place] [address] | + + + | Home Phone | | + + + | Preferred Language | Unknown | + + + | Marital Status | | + + + | Yazidism Affiliation | Unknown | + + + | Race | White | + + + | Ethnic Group | Not or | + + + Author + + + | Author | [facility] | + + + | Organization | [facility] | + + + | Address | Unknown | + + + | Phone | Unavailable | + + + Care Team Providers + +------+ + | Care Manager Rail Name | Role | Phone | + +------+ + PCP | Unavailable | + +------+ + Encounter Details +--------+ + + + + | Date | Type | Department | Care Team | Description | +--------+ + + + + | 03/09/ | Documentati | UNKNOWN DEPARTMENT | Unknown . | | | 2018 | on | [address] [facility] | | | | | | [address] | | | | | | [place], [place] | | | | | | [address] | | | +--------+ + + + [...] Not on filedocumented as of this encounter Visit Diagnoses Not on filedocumented in this encounter"
--- OUTSIDE RECORDS SUMMARY | ~2020-04-22 | XMS | Encounter Summary ---
Demographics + + + | Address | [address] | | | [place] [address] | + + + | Home Phone | | + + + | Preferred Language | Unknown | + + + | Marital Status | | + + + | Cheondoism Affiliation | 1077 | + + + | Race | Unknown | + + + | Ethnic Group | Unknown | + + + Author + + + | Author | [facility] | | | and [place] | + + + | Organization | [facility] | | | [...] [place] | | | | | [address] | | + + + + + | Arin Ulloa | ECON | Unknown | | + + + + + Care Team Providers + +------+ + | Care Bathhouse Attendant Name | Role | Phone | + +------+ + PCP | Unavailable | + +------+ + Encounter Details +--------+ + + + + | Date | Type | Department | Care Team | Description | +--------+ + + + + | 03/12/ | Hospital | [facility] | Romero Ferguson | | | 1999 - | Encounter | [facility] | [address] [place] | | | | | CARDIAC TELEMETRY | [address] [place], [place] | | | 03/18/ | | [address] | [address] | | | 2001 | | [place], [place] | | | | | | [address] | | | | | | [phone] | | | +--------+ + + + [...] [place] | | | | | | [address] | | | | | | | | +--------+---------+ + + + documented as of this encounter Visit Diagnoses Not on filedocumented in this encounter"
--- OUTSIDE RECORDS SUMMARY | ~2020-04-22 | XMS | Encounter Summary ---
Demographics + + + | Address | [address] | | | [place] [address] | + + + | Home Phone | | + + + | Preferred Language | Unknown | + + + | Marital Status | | + + + | Voodoo Affiliation | 1077 | + + + | Race | Unknown | + + + | Ethnic Group | Unknown | + + + Author + + + | Author | [facility] | | | and [place] | + + + | Organization | [facility] | | [...] [place] | | | | | [address] | | + + + + + | Arin Ulloa | ECON | Unknown | | + + + + + Care Team Providers + +------+ + | Care Local Flatbed Driver Name | Role | Phone | + +------+ + PCP | Unavailable | + +------+ + Encounter Details +--------+ + + + + | Date | Type | Department | Care Team | Description | +--------+ + + + + | 01/26/ | Hospital | [facility] | Wilfrido Salazar MD | [facility] | | 2006 - | Encounter | [facility] | | [facility]) | | | | CARE FLOOR [phone] | | | | 01/28/ | | [place] | | | | 2006 | | [place] | | | | | | [phone] | | | | | | [phone] | | | +--------+ + + + [...] | | | | | | [place], [place] | | | | | | [phone] | | | | | | | | +--------+---------+ + + + documented as of this encounter Visit Diagnoses + + | Diagnosis | + + | Acute myocardial infarction, subendocardial infarction, initial episode of care (HCC) | | Acute myocardial infarction, subendocardial infarction, initial episode of care | + + documented in this encounter"
--- OUTSIDE RECORDS SUMMARY | ~2020-04-22 | XMS | Encounter Summary ---
Demographics + + + | Address | [address] | | | [place] [address] | + + + | Home Phone | | + + + | Preferred Language | Unknown | + + + | Marital Status | | + + + | Hoahaoism Affiliation | 1077 | + + + | Race | Unknown | + + + | Ethnic Group | Unknown | + + + Author + + + | Author | [facility] | | | and [place] | + + + | Organization | [facility] | [...] [place] | | | | | [address] | | + + + + + | Arin Ulloa | ECON | Unknown | | + + + + + Care Team Providers + +------+ + | Care Telecom Billing Analyst Name | Role | Phone | + +------+ + PCP | Unavailable | + +------+ + Encounter Details +--------+ + + + + | Date | Type | Department | Care Team | Description | +--------+ + + + + | 03/10/ | Hospital | [facility] | Sathish Appiah S | | | 1999 | Encounter | [facility] | MD | | | | | GENERIC CONV DEPT | | | | | | [address] | | | | | | [place] | | | | | | [address] | | | | | | [phone] | | | +--------+ + + + [...] | | | | | [place] | | | | | | [id number] | | | | | | | | +--------+---------+ + + + documented as of this encounter Visit Diagnoses Not on filedocumented in this encounter"
--- OUTSIDE RECORDS SUMMARY | ~2020-04-22 | XMS | Encounter Summary ---
Demographics + + + | Address | [address] | | | [place] [address] | + + + | Home Phone | | + + + | Preferred Language | Unknown | + + + | Marital Status | | + + + | Evangelical Affiliation | 1077 | + + + | Race | Unknown | + + + | Ethnic Group | Unknown | + + + Author + + + | Author | [facility] | | | and [place] | + + + | Organization | [facility] | | | and [...] [place] | | | | | [address] | | + + + + + | Arin Ulloa | ECON | Unknown | | + + + + + Care Team Providers + +------+ + | Care Employee Service Officer Name | Role | Phone | [...] W/ | | | | [address] | [place] | VITRECTOMY | | | | [place] | [place] [address] | | | | | [address] | [phone] | | | | | [phone] | | | +--------+---------+ + + + [...] + + + | Blood Pressure | 153/62 | 08/06/2019 11:30 AM | | | | | PST | | + + + + + | Pulse | 51 | 08/06/2019 11:30 AM | | | | | PST | | + + + + + | Temperature | 36.2 C (97.2 F) | 08/06/2019 11:30 AM | | | | | PST | | + + + + + | Respiratory Rate | 18 | 08/06/2019 11:30 AM | | | | | PST | | + + + + + | Oxygen Saturation | 96% | 08/06/2019 11:30 AM | | | [...] wear the eye shield as noted sam angela. Do not drive for at least 24 [...] symptoms, immediately call your eye doctor or [facility] at (dial "9" after hours [...] | daily. | | | 19 | 0 | | capsule | | | | [...] right eye Daily. | | | | 0 | | suspension | | | | [...] + + documented as of this encounter H&P Notes Esequiel Spencer MD - 08/06/2019 1:14 PM PSTSURGICAL INTERIM HISTORY & PHYSICAL UPDA TE Pt. Name/Age/: Deep Ulloa 83 y.o. 1935 Date of admission: 08/06/2019 The current H&P was reviewed. The patient was reexamined. Re-evaluation of the patient co nfirms the necessity for the scheduled procedure. No change has occurred in the patient s condition since the H&P was completed less than 30 days ago. VERIFICATION OF CONSENT (PARQ) The patient was counseled regarding the procedure, its indications, risks, potential compli cations and alternatives. Any questions were answered. Consent was obtained. Electronically signed by: Esequiel Spencer MD, 08/06/2019 13:14 [facility] documented in t his encounter Miscellaneous Notes Op Note - Esequiel Spencer MD - 08/06/2019 3:26 PM PSTPre-op Diagnosis: Displaced/lo ose intraocular lens, right eye Secondary corneal edema, right eye Post-op Diagnosis: same Procedure: Lens exchange with vitrectomy, right eye Implant: Hayder [id number] 21.0, SN [id number] Surgeon: Esequiel pSencer MD Anesthesia: General anesthesia Technique/Procedure Description: After the patient's eye prepped and draped in the usual [facility] ophthalmic manner, a lid speculum was placed between the eyelids. A 6 mm trochar was placed 3 mm posterior to the inferonasal limbus. A side port was placed on either side of th e planned temporal wound. Viscoat was placed between the anterior chamber intraocular lens a nd a conjunctival peritomy was made temporally followed by a scleral tunnel. The limbus was marked superonasal and inferotemporal for the future location of the lens sutures. The anter ior chamber lens was loose and was removed without difficulty. A pars plana vitrectomy was p erformed using triamcinolone to stain any vitreous. Small peritomies were made superonasal a nd inferotemporal for the planned suture sites. The lens implant was then sutured with 9-0 p rolene 2 mm posterior to the limbus, the knots tied and buried in the sclera. The trochar wa s removed. The conjunctival peritomies were sutured closed with 10-0 vicryl and the stable a nd self-sealing temporal wound sutured closed with a single 10-0 nylon stitch and the knot b uried. No vitreous was seen in the anterior chamber. Vigamox 0.1cc was placed in the anteri or chamber. Triamcinolone 3mg was placed in the subconjunctival space. A patch and shield w ere placed over the eye. Postoperative Plan: The patient was sent to recovery in good condition. Complications: none Estimated Blood Loss: <1cc documented in this encounter Plan of Treatment +--------+---------+ + + + | Date | Type | Specialty | Care Team | Description | +--------+---------+ + + + | 08/23/ | Office | Cardiology | Andrade Hobbs, | | | 2019 | Visit | | MD Curtis ESPARZA | | | | | | [place] | | | | | | [phone] | | | | | | | [...] | | | | | PRN, Starting Fri08/06/19 at | | | | [...] One week or | | | longer, tblypo-nmt-qhdev use of | | | at least [...] | | | | kit PRN, Starting 08/06/19 | | PM PST | | | | | at 1353, Intra-op | | | | | | + +-------+ +-------+---+---+ + +---+ | | | + +---+ | hydrALAZINE (APRESOLINE) | | | injection 5 mg 5 mg, | | | Intravenous, EVERY 20 MINUTES | | | PRN, For SBP > 180, DBP > 100, | | | Starting 08/06/19 at 1502, | | | Hold if [...] One week or longer, | | | vwoxus-wkt-uxtqh use of at least | | | [...] | mL/hr | | | CONTINUOUS, Starting 08/06/19 | | PM PST | | | [...] PST | | | | | Starting 08/06/19 at 1130, For | | | | [...] | | | t | | Starting 08/06/19 at 1355, | | PM PST | [...]
--- OUTSIDE RECORDS SUMMARY | ~2020-04-22 | XMS | Encounter Summary ---
Demographics + + + | Address | [address] | | | [place] [address] | + + + | Home Phone | | + + + | Preferred Language | Unknown | + + + | Marital Status | | + + + | Pentecostalism Affiliation | 1077 | + + + [...] [place] | | | | | [address] | | + + + + + | Arin Ulloa | ECON | Unknown | | + + + + + Care Team Providers + +------+ + | Care Veterinary Science Teacher Name | Role | Phone | + +------+ + PCP | Unavailable | + +------+ + Encounter Details +--------+ + + + + | Date | Type | Department | Care Team | Description | +--------+ + + + + | 05/10/ | Hospital | [facility] | Derrek Darnell | | | 1999 | Encounter | [facility] | MD Zack [address] | | | | | CONVERSION | [address] | | | | | [address]PART[address] | [place] [address] | | | | | [address] | [phone] | | | | | [place], [place] | | | | | | [address] | | | | | | [phone] | | | +--------+ + + + [...] [place] | | | | | | [address] | | | | | | | | +--------+---------+ + + + documented as of this encounter Visit Diagnoses Not on filedocumented in this encounter"
--- OUTSIDE RECORDS SUMMARY | ~2020-04-22 | XMS | Encounter Summary ---
Demographics + + + | Address | [address] | | | [place] [address] | + + + | Home Phone [...] [place] | | | | | [address] | | + + + + + | Arin Ulloa | ECON | Unknown | | + + + + + Care Team Providers + +------+ + | Care Lokie Engineer Name | Role | Phone | [...] + + | 06/09/ | Office | [facility] | DevinAndrade, | Chronic systolic | | 2019 | Visit | CARDIOLOGY [place] | MD Curtis ESPARZA | heart failure (HCC) | | | | [address] | [place], [place] | (Primary Dx); | | | | WAY [facility] [address] | [id number] | Coronary artery | | | | [place] | | disease of bypass | | | | [address] | | graft of [place] | | | | [phone] | | heart with stable | | [...] episode of chest pain while preparing for muslim on Friday, took 2 nitroglycerin at that [...] having increased fatigue lately. Last hospitalization in [facility] on 07 April 2018 secondary to non-ST elevation [place]. 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 HIGH SCHOOL COACH of [place]. Patent RAM to LAD. Severe [...] question about this report please contact me. Andraed Garcia MD, MPH P M PDTdocumented in this encounter Plan of Treatment +--------+---------+ + + + | Date | Type | Specialty | Care Team | Description | +--------+---------+ + + + | 08/23/ | Office | Cardiology | Andrade Garcia, | | | 2019 | Visit | | MD Curtis ESPARZA | | | | | | [place], [place] | | | | | | [phone] | | | | | | | [...] | | | | | graft of [place] | | | | | | heart [...] | | | | | by [employer] Read Only, | | | | | | [employer]a ([id number]), | | | | | | online content editor LARRY DARLING | | | | [...] Coronary artery disease of bypass graft of [place] heart with stable angina pectoris | | (HCC) | + + | Stable angina (HCC) Other and unspecified angina pectoris | + + | Essential hypertension Unspecified essential hypertension | + + documented in this encounter
--- OUTSIDE RECORDS SUMMARY | ~2020-04-22 | XMS | Encounter Summary ---
Demographics + + + | Address | [address] | | | [place] [address] | + + + | Home Phone [...] + | Author | [facility] | | | and [place] | + + + | Organization | [facility] | | | and [...] [place] | | | | | [address] | | + + + + + | Arin Ulloa | ECON | Unknown | | + + + + + Care Team Providers + +------+ + | Care Certified Adaptive Physical Educator Name | Role | Phone | + +------+ + | Fabricio Bah | PCP | | | MD | | | + +------+ + Reason for Visit +--------+--------+ + | Reason | Onset | Comments | | | Date | | +--------+--------+ + | Other | 01/26/ | Called for Virtual Visit | | | 2019 | | +--------+--------+ + Encounter Details +--------+ + + + + | Date | Type | Department | Care Team | Description | +--------+ + + + + | 01/26/ | Telephone | [facility] | Roxi, | Other (Called for | | 2019 | | RHEUMATOLOGY [address] | Tiff Reina [facility] [address] | Virtual Visit) | | | | [address] | [address] | | | | | [place] | [place] [address] | | | | | [address] | [phone] | | | | | [phone] | | | +--------+ + + + [...] this encounter Miscellaneous Notes Telephone Encounter - Soraida Niki - 01/27/2020 10:01 AM PDT1. For your safety and to he lp prevent further spread of the COVID-19, your provider would like to offer you a telephone /virtual visit. Would you like to change your office visit to a telephone/virtual visit? a. If no, see below b. If yes, skip 2 and 3 NO, wants to reschedule 2. Have you been exposed to anyone diagnosed with COVID-19? a. If yes, transfer to triage but ask #3 also b. If no, see below 3. Do you currently have a cough, SOB, a fever, sore throat or loss of taste or smell? a. If yes, transfer to triage b. If no, see below Remind patients of no visitor policy if they are coming to clinic When you change the apt to a telephonic/virtual visit please: -Confirm insurance -if telephone, Confirm what phone number they want called, check to making sure they get go od dental office receptionist in their area -Gather any questions ahead of time -They need to be in a quiet area, away from distractions -Tell them what time they should be expecting the call (just their scheduled apt time) -if virtual, send mychart message -computer needs to have webcam, microphone and speakers -smart phone should have webcam, microphone and speakers documented in this encoun ter Plan of Treatment +--------+---------+ + + + | Date | Type | Specialty | Care Team | Description | +--------+---------+ + + + | 08/23/ | Office | Cardiology | Andrade Hobbs, | | | 2019 | Visit | | MD Curtis ESPARZA | | | | | | [place] | | | | | | [phone] | | | | | | | | +--------+---------+ + + + documented as of this encounter Visit Diagnoses Not on filedocumented in this encounter"
--- OUTSIDE RECORDS SUMMARY | ~2020-04-22 | XMS | Encounter Summary ---
Demographics + + + | Address | [address] | | | [place] [address] | + + + | Home Phone [...] [place] | | | | | [address] | | + + + + + | Arin Ulloa | ECON | Unknown | | + + + + + Care Team Providers + +------+ + | Care Communication Manager Name | Role | Phone | [...] + + | 01/01/ | Refill | [facility] | Chasity Vanegas | Medication Refill | | 2020 | | CARDIOLOGY CARMEN | MD Samina [address] | | | | | [address] | [place], [place] | | | | | [place], [place] | [address] | | | | | [address] | | | | | | [phone] | | | +--------+--------+ + + + [...] [place] | | | | | | [address] | | | | | | | | +--------+---------+ + + + documented as of this encounter Visit Diagnoses Not on filedocumented in this encounter"
--- OUTSIDE RECORDS SUMMARY | ~2020-04-22 | XMS | Encounter Summary ---
Demographics + + + | Address | [address] | | | [place] [address] | + + + | Home Phone | | + + + | Preferred Language | Unknown | + + + | Marital Status | | + + + | Hoahaoism Affiliation | 1077 | + + + | Race | Unknown | + + + | Ethnic Group | Unknown | + + + Author + + + | Author | [facility] | | | and [place] | + + + | Organization | [facility] | | [...] [place] | | | | | [address] | | + + + + + | Arin Ulloa | ECON | Unknown | | + + + + + Care Team Providers + +------+ + | Care Barrel Handler Name | Role | Phone | + +------+ + PCP | Unavailable | + +------+ + Encounter Details +--------+ + + + + | Date | Type | Department | Care Team | Description | +--------+ + + + + | 08/17/ | Hospital | [facility] | Tom Booth, | | | 1996 | Encounter | DEBRA STUART | MD [address] | | | | | CONVERSION | [address] | | | | | [address]PART[address] | [place] [address] | | | | | [place] | [phone] | | | | | [place] | | | | | | [address] | | | | | | [phone] | | | +--------+ + + + [...] [place] | | | | | | [address] | | | | | | | | +--------+---------+ + + + documented as of this encounter Visit Diagnoses Not on filedocumented in this encounter"
--- OUTSIDE RECORDS SUMMARY | ~2020-04-22 | XMS | Encounter Summary ---
Demographics + + + | Address | [address] | | | [place] [address] | + + + | Home Phone | | + + + | Preferred Language | Unknown | + + + | Marital Status | | + + + | Mormonism Affiliation | 1077 | + + + | Race | Unknown | + + + | Ethnic Group | Unknown | + + + Author + + + | Author | [facility] | | | and [place] | + + + | Organization | [facility] | | [...] [place] | | | | | [address] | | + + + + + | Arin Ulloa | ECON | Unknown | | + + + + + Care Team Providers + +------+ + | Care Podiatrist Name | Role | Phone | + +------+ + PCP | Unavailable | + +------+ + Encounter Details +--------+ + + + + | Date | Type | Department | Care Team | Description | +--------+ + + + + | 07/20/ | Hospital | [facility] | Derrek Darnell | | | 1999 | Encounter | DE[facility]RA [facility] | MD [address] | | | | | [address] | [address] | | | | | [place] | [place] [address] | | | | | [address] | [phone] | | | | | [phone] | | | +--------+ + + + [...] [place] | | | | | | [address] | | | | | | | | +--------+---------+ + + + documented as of this encounter Visit Diagnoses Not on filedocumented in this encounter"
--- OUTSIDE RECORDS SUMMARY | ~2020-04-22 | XMS | Encounter Summary ---
Demographics + + + | Address | [address] | | | [place] [address] | + + + | Home Phone [...] [place] | | | | | [address] | | + + + + + | Arin Ulloa | ECON | Unknown | | + + + + + Care Team Providers + +------+ + | Care Business Transformation Analyst Name | Role | Phone | + +------+ + PCP | Unavailable | + +------+ + Encounter Details +--------+ + + + + | Date | Type | Department | Care Team | Description | +--------+ + + + + | 10/01/ | Hospital | [facility] | Derrek Darnell | | | 2001 | Encounter | DEBRA GENERIC | MD [address] | | | | | CONVERSION | [address] | | | | | [address]PART[address] | [place] [address] | | | | | [address] | [phone] | | | | | [place], [place] | | | | | | [address] | | | | | | [phone] | | | +--------+ + + + [...] [place] | | | | | | [address] | | | | | | | | +--------+---------+ + + + documented as of this encounter Visit Diagnoses Not on filedocumented in this encounter"
--- OUTSIDE RECORDS SUMMARY | ~2020-04-22 | XMS | Encounter Summary ---
Demographics + + + | Address | [address] | | | [place] [address] | + + + | Home Phone [...] [place] | | | | | [address] | | + + + + + | Arin Ulloa | ECON | Unknown | | + + + + + Care Team Providers + +------+ + | Care Canceling Machine Operator Name | Role | Phone | + +------+ + PCP | Unavailable | + +------+ + Encounter Details +--------+ + + + + | Date | Type | Department | Care Team | Description | +--------+ + + + + | 03/01/ | Hospital | [facility] [address] | Derrek Darnell | | | 2001 - | Encounter | [place] [address] | MD [address] | | | | | [address] | [address] | | | 03/02/ | | [place], [place] | [place] [address] | | | 1999 | | [address] | [phone] | | | | | [phone] | | | | | | | Tom Douglas MD | | | | | | [address] [facility] [facility] [facility] | | | | | | [place] [address] | | | | | | [phone] | | | | | | | [...] [place] | | | | | | [address] | | | | | | | | +--------+---------+ + + + documented as of this encounter Visit Diagnoses Not on filedocumented in this encounter"
--- OUTSIDE RECORDS SUMMARY | ~2020-04-22 | XMS | Clinical Summary ---
Demographics + + + | Address | [address] | | | [place] [address] | + + + | Home Phone | | + + + | Preferred Language | Unknown | + + + | Marital Status | | + + + | Nondenominational Affiliation | Unknown | + + + | Race | White | + + + | Ethnic Group | Not or | + + + Author + + + | Author | [facility] | + + + | Organization | [facility] | + + + | Address | Unknown | + + + | Phone | Unavailable | + + + Care Team Providers + +------+ + | Care Coke Oven Patcher Name | Role | Phone | + +------+ + PCP | Unavailable | + +------+ + Source Comments [facility] is fully live on both [facility] and [facility] InPatient.[facility] Allergies Not on File Medications Not [...] | | | | all | | [address] | | | | | | dates | | | | + +--------+ +--------+ + +--------+ | [place] | BLUE | [phone] | Effect | [phone] | [address] | PPO | | | CROSS | | bc | 8 | [address] | | | | [place] | | for | | [place], | | | | L | | all | | [place] [address] | | | | | | dates [...] Self | [birth year] | [address] | | | al/Fern[place] | | 1936 | [phone] | [place] [address] | | | sonny | | | 0 (Home) | | + +--------+ +--------+ + +"
--- OUTSIDE RECORDS SUMMARY | ~2020-04-22 | XMS | Encounter Summary ---
Demographics + + + | Address | [address] | | | [place] [address] | + + + | Home Phone [...] + | Author | [facility] | | | and [place] | + + + | Organization | [facility] | | | and [...] [place] | | | | | [address] | | + + + + + | Arin Ulloa | ECON | Unknown | | + + + + + Care Team Providers + +------+ + | Care Benefits Consulting Analyst Name | Role | Phone | + +------+ + | Fabricio Bah | PCP | | | MD | | | + +------+ + Reason for Visit + + + | Reason | Comments | + + + | Rheumatoid Arthritis | | + + + Encounter Details +--------+---------+ + + + | Date | Type | Department | Care Team | Description | +--------+---------+ + + + | 08/02/ | Office | [facility] | Roxi, | Rheumatoid arthritis | | 2019 | Visit | RHEUMATOLOGY [address] | [address] | of multiple sites | | | | [address] | [address] | with negative | | | | [facility] [place] | [place] [address] | rheumatoid factor | | | | [address] | [phone] | ([facility]) (Primary Dx); | | | | [phone] | | High risk medication | | | | | | use; 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 | | | | | | user | +--------+---------+ + + + Social History [...] + + + | Blood Pressure | 145/75 | 08/02/2019 1:56 PM | | | | | PST | | + + + + + | Pulse | 64 | 08/02/2019 1:56 PM | | | | | PST | | + + + + + | Temperature | 37 C (98.6 F) | 08/02/2019 1:56 PM | | | | | PST [...] + + + + | Weight | 79.8 kg (176 lb) | 08/02/2019 1:56 PM | | | | | PST | | + + + + + | Height | 177.8 cm (5' 10") | 08/02/2019 1:56 PM | | | | | PST | | + + + + + | Body Mass Index | 25.25 | 08/02/2019 1:56 PM | | | | | PST | | + + + + + documented in this encounter Patient Instructions Patient Instructions Maki Mccloud, Tank Filler - 08/02/2019 2:00 PM Virgil hope that you have experienced exceptional care today and that you found our service to be courte ous and helpful. If you have any questions you can send us a message/request using FanXT or call our o ffice at [phone]. To reach Maki CAREN type extension [phone]. If you are unable to reach a nurse during clinic hours, please leave a detailed message. We check our messages often and return calls in a timely manner during clinic hours. Medication refills- please contact your pharmacy first Orders for labs or imaging: Please remember that Tiff will only call you if something i s of concern AND needs to be addressed, otherwise results will be discussed at your next of fice visit. You can also look at your results on Klatcher. If you are experiencing an emergency, please call 911 Continue prednisone 5 mg once a day and sulfasalazine 1 tab twice a day documented in this encounter Progress Notes Tiff Diane ARNP - 08/02/2019 2:00 PM PSTFormatting of this note might be diffe rent from the original. Subjective: Patient ID: Deep Ulloa is a 83 y.o. male. Reason for visit: Rheumatoid Arthritis Here forFollow up Rheumatological History Patient was Initially diagnosed with PMR in 2010. Developed symptoms of RA in 2011. Serology: Elevated CRP/ESR, Neg.GÓMEZ, Neg.RF, Neg.CCP antibody Imagin- hands- possible early RA changes, mild OA changes HPI Last visit:12/28/2018 Changes in overall health since last visit: No Main Concern: RA-doing well on current regimen. Orts mild left-sided low back pain, but not significantly bothersome during the day. Sympt oms worse at night, reports that CBD oil is effective for pain relief Denies joint pain, swelling, AM stiffness > 30 minutes, fevers, illness, infection, rashes, oral ulcers, chest pain, SOB or abdominal pain Tried and failed oral DMARDs include:Plaquenil- developed detached retina. Tried and failed biologic DMARDs include:none Tried and failed NSAIDs:none Current rheumatological medications::Prednisone 5 mg QD, Sulfasalazine 500 mg BID The following portions of the patient's history were reviewed and updated as appropriate an d is available elsewhere in the record: allergies, current medications, past family history, past social history, past surgical history and problem list. Past Medical History: Diagnosis Date Coronary artery disease Osteoarthritis Rheumatoid arthritis (HCC) Review of Systems Constitutional: Negative for fatigue and fever. HENT: Negative for mouth sores. Eyes: Negative for pain and redness. Respiratory: Negative for cough and shortness of breath. Cardiovascular: Negative for chest pain. Gastrointestinal: Negative for abdominal pain and blood in stool. Genitourinary: Negative for dysuria and hematuria. Musculoskeletal: Positive for arthralgias (hips). Negative for joint swelling. Skin: Negative for rash. Neurological: Negative for numbness and headaches. Psychiatric/Behavioral: The patient is not nervous/anxious. ITiff, reviewed the above ROS, all other systems are reviewed and nega tive Objective: BP 145/75 | Pulse 64 | Temp 37 C (98.6 F) | Ht 1.778 m (5' 10") | Wt 79.8 kg (176 l b) | BMI 25.25 kg/m Physical Exam Constitutional: He is oriented to person, place, and time. He appears well-developed and we ll-nourished. HENT: Head: Normocephalic. Mouth/Throat: Oropharynx is clear and moist. Wears a hearing aid Eyes: Pupils are equal, round, and reactive to light. Cardiovascular: Normal rate, regular rhythm and normal heart sounds. Pulmonary/Chest: Effort normal and breath sounds normal. Musculoskeletal: Normal range of motion. 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 Skin: Skin is warm, dry and intact. Psychiatric: He has a normal mood and affect. His behavior is normal. AGUILAR-28 (ESR): 1.01 (Remission) Fede FABIAN am personally using the homunculus tool during Tiff Roca MULTIMEDIA EDUCATIONAL SPECIALIST patient exam. [facility] --12[facility]28[facility]2018 Reviewed chart notes, labs and imaging form other provider(s) since the last visit. Assessment and Plan: Visit Diagnoses and Associated Orders: Rheumatoid arthritis of multiple sites with negative rheumatoid factor (HCC) (Primary) Assessment & Plan: No clinical evidence of active disease on today's exam. Responding well to current treatment plan. No change in treatment plan. 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 High risk medication use Assessment & Plan: Update labs today and continue to monitor closely while on DMARD and/or biologic medication . Counseled regarding medication compliance as well as potential toxicities with medication s such as cytopenias, liver abnormalities and risks for infection, and the need for routine blood work monitoring. 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 Most common side effects are weight gain and mood instability (worsened anxiety). O ther side effects include but not limited to - development of facial hair (in women), hyp erglycemia, hyperlipidemia, glaucoma, cataracts, weight gain, hypertension, acne, infection, skin fragility and poor wound healing, skin bruising, muscle weakness, development of gastr itis and gastric ulcers, and increased risk for developing osteopenia/osteoporosis and osteo necrosis (AVN), which may need joint replacements .Patient understands to avoid NSAIDs while taking steroids. Risks and benefits of a treatment plan were explained to patient. Patient will follow up with their primary care physician in regards to non-rheumatological symptoms listed under review of systems. Patient was advised to contact our office if there are any change in their symptoms. This document has been prepared with SwipeGood voice recognition system. The possibility of "s ound alike" patents examiner errors, and additions, or deletions may occur. If there is any que stion with respect to clarity of the message being conveyed, please contact me directly for clarification. documented in this encounter Miscellaneous Notes Assessment & Plan Note - Tiff Diane ARNP - 08/02/2019 9:47 AM PSTAssociated Pr oblem(s): penitentiary systemic steroid user - PrednisoneSteroids: I had a lengthy discussion w ith the patient about the potential side effects of steroids. Most common side effects are w eight gain and mood instability (worsened anxiety). Other side effects include but not limit ed to - development of facial hair (in women), hyperglycemia, hyperlipidemia, glaucoma, c ataracts, weight gain, hypertension, acne, infection, skin fragility and poor wound healing, skin bruising, muscle weakness, development of gastritis and gastric ulcers, and increased risk for developing osteopenia/osteoporosis and osteonecrosis (AVN), which may need joint re placements .Patient understands to avoid NSAIDs while taking steroids. ssessment & Plan Note - Tiff Diane ARNP - 08/02/2019 9:46 AM PSTAssociated Problem(s): High risk medication useUpdate labs today and continue to monitor closely while on DMARD and/or biologic medication. Counseled regarding medication compliance as well as potential toxicit ies with medications such as cytopenias, liver abnormalities and risks for infection, and th e need for routine blood work monitoring. ssessment & Plan Note - Tiff Diane ARNP - 08/02/2019 9:46 AM PSTAssociated Problem(s): Rheu matoid arthritis (HCC)No clinical evidence of active disease on today's exam. Responding well to current treatment plan. No change in treatment plan. Patient understands that treatment is residential and if patient fails to continue regimen , the disease has propensity to flare. documented in this encounter Plan of Treatment +--------+---------+ + + + | Date | Type | Specialty | Care Team | Description | +--------+---------+ + + + | 08/23/ | Office | Cardiology | Andrade Hobbs, | | | 2019 | Visit | | MD Curtis ESPARZA | | | | | | [place], [place] | | | | | | [address] | | | | | | | | +--------+---------+ + + + documented as of this encounter Visit Diagnoses + + | Diagnosis | + + | Rheumatoid arthritis of multiple sites with negative rheumatoid factor (HCC) - Primary | + + | High risk medication use Encounter for long-term (current) use of other medications | + + | 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
--- OUTSIDE RECORDS SUMMARY | ~2020-04-22 | XMS | Encounter Summary ---
Demographics + + + | Address | [address] | | | [place] [address] | + + + | Home Phone | | + + + | Preferred Language | Unknown | + + + | Marital Status | | + + + | Caodaism Affiliation | 1077 | + + + | Race | Unknown | + + + | Ethnic Group | Unknown | + + + Author + + + | Author | [facility] | | | and [place] | + + + | Organization | [facility] | | | [...] [place] | | | | | [address] | | + + + + + | Arin Ulloa | ECON | Unknown | | + + + + + Care Team Providers + +------+ + | Care Window Sash Installer Name | Role | Phone | + +------+ + PCP | Unavailable | + +------+ + Encounter Details +--------+ + + + + | Date | Type | Department | Care Team | Description | +--------+ + + + + | 04/07/ | Hospital | [facility] | Conversion | Diagnosis unknown | | 2018 | Encounter | [address]VERSION [address] | Transaction, | | | | | [address] | Provider Unknown | | | | | [place], [place] | [phone] | | | | | [address] | | | | | | [phone] | | | +--------+ + + + [...] | | | | | [place], [place] | | | | | | [address] | | | | | | | [...]
--- OUTSIDE RECORDS SUMMARY | ~2020-04-22 | XMS | Encounter Summary ---
Demographics + + + | Address | [address] | | | [place] [address] | + + + | Home Phone | | + + + | Preferred Language | Unknown | + + + | Marital Status | | + + + | Oriental Orthodox Affiliation | 1077 | + + + | Race | Unknown | + + + | Ethnic Group | Unknown | + + + Author + + + | Author | [facility] | | | and [place] | + + + | Organization | [facility] | | | [...] [place] | | | | | [address] | | + + + + + | Arin Ulloa | ECON | Unknown | | + + + + + Care Team Providers + +------+ + | Care Distribution Spec Name | Role | Phone | + +------+ + PCP | Unavailable | + +------+ + Encounter Details +--------+ + + + + | Date | Type | Department | Care Team | Description | +--------+ + + + + | 08/09/ | Hospital | [facility] | Derrek Darnell | | | 1998 | Encounter | DEBRA GENERIC | MD [address]ack [address] | | | | | CONVERSION | [address] | | | | | [address] | [place] [address] | | | | | Alan [place]thorne | [phone] | | | | | [place], [place] | | | | | | [address] | | | | | | [phone] | | | +--------+ + + + [...] [place] | | | | | | [address] | | | | | | | | +--------+---------+ + + + documented as of this encounter Visit Diagnoses Not on filedocumented in this encounter"
--- OUTSIDE RECORDS SUMMARY | ~2020-04-22 | XMS | Encounter Summary ---
Demographics + + + | Address | [address] | | | [place] [address] | + + + | Home Phone | | + + + | Preferred Language | Unknown | + + + | Marital Status | | + + + | Adventist Affiliation | 1077 | + + + | Race | Unknown | + + + | Ethnic Group | Unknown | + + + Author + + + | Author | [facility] | | | and [place] | + + + | Organization | [facility] | | | [...] [place] | | | | | [address] | | + + + + + | Arin Ulloa | ECON | Unknown | | + + + + + Care Team Providers + +------+ + | Care Conservation Engineer Name | Role | Phone | + +------+ + PCP | Unavailable | + +------+ + Encounter Details +--------+ + + + + | Date | Type | Department | Care Team | Description | +--------+ + + + + | 07/17/ | Hospital | [facility] | Abram Templeton MD | | | 1999 | Encounter | FAMILY INTRA OP | [address] | | | | | [address] | [place], [place] | | | | | [place], [place] | [phone] | | | | | [address] | | | | | | [phone] | | | +--------+ + + + [...] | | | | | [place] | | | | | | [address] | | | | | | | | +--------+---------+ + + + documented as of this encounter Visit Diagnoses Not on filedocumented in this encounter"
--- OUTSIDE RECORDS SUMMARY | ~2020-04-22 | XMS | Encounter Summary ---
Demographics + + + | Address | [address] | | | [place] [address] | + + + | Home Phone [...] [place] | | | | | [address] | | + + + + + | Arin Ulloa | ECON | Unknown | | + + + + + Care Team Providers + +------+ + | Care Milk And Cream Grader Name | Role | Phone | + +------+ + PCP | Unavailable | + +------+ + Encounter Details +--------+ + + + + | Date | Type | Department | Care Team | Description | +--------+ + + + + | 04/16/ | Hospital | [facility] | Sathish Appiah S | | | 1999 | Encounter | HEART MED [facility] | MD | | | | | ULTRASOUND [address] | | | | | | [address] [place] | | | | | | [address] | | | | | | [phone] | | | +--------+ + + + [...] 08/23/ | Office | Cardiology | Andrade Hbobs, | | | 2019 | Visit | | MD Curtis ESPARZA | | | | | | [place] | | | | | | [address] | | | | | | | | +--------+---------+ + + + documented as of this encounter Visit Diagnoses Not on filedocumented in this encounter"
--- OUTSIDE RECORDS SUMMARY | ~2020-04-22 | XMS | Encounter Summary ---
Demographics + + + | Address | [address] | | | [place] [address] | + + + | Home Phone | | + + + | Preferred Language | Unknown | + + + | Marital Status | | + + + | Tenriism Affiliation | 1077 | + + + | Race | Unknown | + + + | Ethnic Group | Unknown | + + + Author + + + | Author | [facility] | | | and [place] | + + + | Organization | [facility] | | | [...] [place] | | | | | [address] | | + + + + + | Arin Ulloa | ECON | Unknown | | + + + + + Care Team Providers + +------+ + | Care Regional Geodetic Advisor Name | Role | Phone | + +------+ + | Fabricio Bah | PCP | | | MD | | | + +------+ + Encounter Details +--------+ + + + + | Date | Type | Department | Care Team | Description | +--------+ + + + + | 08/06/ | Hospital | [facility] | Esequiel Spencer | | | 2019 | Encounter | MED CTR OR INTRA OP | MD [address] | | | | | [address] | [place] | | | | | [place] | [place] [address] | | | | | [address] | [phone] | | | | | [phone] | | | +--------+ + + + [...] symptoms, immediately call your eye doctor or [facility] at (dial "9" after hours [...] signed by: Esequiel Spencer MD, 08/06/2019 13:14 [facility] documented in t his encounter Miscellaneous Notes Op Note - Esequiel Spencer MD - 08/06/2019 3:26 PM PSTPre-op Diagnosis: Displaced/lo ose intraocular lens, right eye Secondary corneal edema, right eye Post-op Diagnosis: same Procedure: Lens exchange with vitrectomy, right eye Implant: Hayder [id number] 21.0, SN [id number] Surgeon: Esequiel Spencer MD Anesthesia: General anesthesia Technique/Procedure Description: After the patient's eye prepped and draped in the usual st erile ophthalmic manner, a lid speculum was placed [...] [place] | | | | | | [id number] | | | | | | | [...] One week or | | | longer, wjsawf-vij-tekcc use of | | | at least [...] One week or longer, | | | dgeqgu-wjf-zubro use of at least | | | [...] Intravenous, PRN, Shivering, | | | Starting Fri08/06/19 at 1502, For | | | 2 [...] ONCE | | | PRN, Nausea, Starting 08/06/19 | | | at 1502, For 1 [...]
--- OUTSIDE RECORDS SUMMARY | ~2020-04-22 | XMS | Encounter Summary ---
Demographics + + + | Address | [address] | | | [place] [address] | + + + | Home Phone | | + + + | Preferred Language | Unknown | + + + | Marital Status | | + + + | Taoism Affiliation | 1077 | + + + | Race | Unknown | + + + | Ethnic Group | Unknown | + + + Author + + + | Author | [facility] | | | and [place] | + + + | Organization | [facility] | | | [...] [place] | | | | | [address] | | + + + + + | Arin Ulloa | ECON | Unknown | | + + + + + Care Team Providers + +------+ + | Care Aircraft Painter Apprentice Name | Role | Phone | + +------+ + PCP | Unavailable | + +------+ + Encounter Details +--------+ + + + + | Date | Type | Department | Care Team | Description | +--------+ + + + + | 04/24/ | Hospital | [facility] | Derrek Darnell | | | 2000 | Encounter | DEBRA GENERIC | MD [address] | | | | | CONVERSION | [address] | | | | | [address]PART[address] | [place] [address] | | | | | Alan [place]thorne | [phone] | | | | | [place], [place] | | | | | | [address] | | | | | | [phone] | | | +--------+ + + + [...] [place] | | | | | | [address] | | | | | | | | +--------+---------+ + + + documented as of this encounter Visit Diagnoses Not on filedocumented in this encounter"
--- OUTSIDE RECORDS SUMMARY | ~2020-04-22 | XMS | Encounter Summary ---
Demographics + + + | Address | [address] | | | [place] [address] | + + + | Home Phone [...] [place] | | | | | [address] | | + + + + + | Arin Ulloa | ECON | Unknown | | + + + + + Care Team Providers + +------+ + | Care Security Alarm Installer Name | Role | Phone | + +------+ + PCP | Unavailable | + +------+ + Encounter Details +--------+ + + + + | Date | Type | Department | Care Team | Description | +--------+ + + + + | 09/26/ | Hospital | [facility] | Derrek Darnell | | | 1997 | Encounter | DEBRA MEEK | MD [address] | | | | | [address] | [address] | | | | | [place] | [place] [address] | | | | | [address] | [phone] | | | | | [phone] | | | +--------+ + + + [...] [place] | | | | | | [address] | | | | | | | | +--------+---------+ + + + documented as of this encounter Visit Diagnoses Not on filedocumented in this encounter"
--- OUTSIDE RECORDS SUMMARY | ~2020-04-22 | XMS | Encounter Summary ---
Demographics + + + | Address | [address] | | | [place] [address] | + + + | Home Phone [...] [place] | | | | | [address] | | + + + + + | Arin Ulloa | ECON | Unknown | | + + + + + Care Team Providers + +------+ + | Care Nursing Admin Name | Role | Phone | + +------+ + | Fabricio Bah | PCP | | | MD | | | + +------+ + Reason for Visit + +--------+ + | Reason | Onset | Comments | | | Date | | + +--------+ + | Medication Refill | 07/26/ | Metoprolol | | | 2018 | | + +--------+ + Encounter Details +--------+--------+ + + + | Date | Type | Department | Care Team | Description | +--------+--------+ + + + | 07/26/ | Refill | [facility] | Addi Nix, | Medication Refill | | 2018 | | [facility] [place] | Court Interpreter | (Metoprolol) | | | | [address] | | | | | | [place] | | | | | | [address] | | | | | | [phone] | | | +--------+--------+ + + + [...] [place] | | | | | | [address] | | | | | | | | +--------+---------+ + + + documented as of this encounter Visit Diagnoses Not on filedocumented in this encounter"
--- OUTSIDE RECORDS SUMMARY | ~2020-04-22 | XMS | Encounter Summary ---
Demographics + + + | Address | [address] | | | [place] [address] | + + + | Home Phone [...] [place] | | | | | [address] | | + + + + + | Arin Ulloa | ECON | Unknown | | + + + + + Care Team Providers + +------+ + | Care Payroll Bookkeeper Name | Role | Phone | + +------+ + PCP | Unavailable | + +------+ + Encounter Details +--------+ + + + + | Date | Type | Department | Care Team | Description | +--------+ + + + + | 12/09/ | Hospital | [facility] | Derrek Darnell | | | 1999 | Encounter | DEBRA GENERIC | MD [address] | | | | | CONVERSION | [address] | | | | | [address] | [place] [address] | | | | | Alan [place] | [phone] | | | | | [place], [place] | | | | | | [address] | | | | | | [phone] | | | +--------+ + + + [...] [place] | | | | | | [address] | | | | | | | | +--------+---------+ + + + documented as of this encounter Visit Diagnoses Not on filedocumented in this encounter"
--- OUTSIDE RECORDS SUMMARY | ~2020-04-22 | XMS | Encounter Summary ---
Demographics + + + | Address | [address] | | | [place] [address] | + + + | Home Phone [...] [place] | | | | | [address] | | + + + + + | Arin Ulloa | ECON | Unknown | | + + + + + Care Team Providers + +------+ + | Care Jewel Hole Gauger Name | Role | Phone | + +------+ + | Fabricio Bah | PCP | | | MD | | | + +------+ + Encounter Details +--------+ + + + + | Date | Type | Department | Care Team | Description | +--------+ + + + + | 07/26/ | Documentati | [facility] | Andrade Hobbs, | | | 2019 | on | CARDIOLOGY [place] | [address] | | | | | [address] | [place], [place] | | | | | [place], [place] | [address] | | | | | [address] | | | | | | [phone] | | | +--------+ + + + [...] [place] | | | | | | [address] | | | | | | | | +--------+---------+ + + + documented as of this encounter Visit Diagnoses Not on filedocumented in this encounter"
--- OUTSIDE RECORDS SUMMARY | ~2020-04-22 | XMS | Encounter Summary ---
Demographics + + + | Address | [address] | | | [place] [address] | + + + | Home Phone | | + + + | Preferred Language | Unknown | + + + | Marital Status | | + + + | Islam Affiliation | 1077 | + + + | Race | Unknown | + + + | Ethnic Group | Unknown | + + + Author + + + | Author | [facility] | | | and [place] | + + + | Organization | [facility] | | | [...] [place] | | | | | [address] | | + + + + + | Arin Ulloa | ECON | Unknown | | + + + + + Care Team Providers + +------+ + | Care Revenue Field Agent Name | Role | Phone | + +------+ + PCP | Unavailable | + +------+ + Encounter Details +--------+ + + + + | Date | Type | Department | Care Team | Description | +--------+ + + + + | 07/17/ | Hospital | [facility] | Brad Cooper | | | 1998 | Encounter | [facility] | [place] [address] | | | | | LAB[address] | [address] | | | [address] [place], [place] | [place] [address] | | | | | [address] | [phone] | | | | | [phone] | | | +--------+ + + + [...] [place] | | | | | | [address] | | | | | | | | +--------+---------+ + + + documented as of this encounter Visit Diagnoses Not on filedocumented in this encounter"
--- OUTSIDE RECORDS SUMMARY | ~2020-04-22 | XMS | Encounter Summary ---
Demographics + + + | Address | [address] | | | [place] [address] | + + + | Home Phone | | + + + | Preferred Language | Unknown | + + + | Marital Status | | + + + | Evangelical Affiliation | 1077 | + + + | Race | Unknown | + + + | Ethnic Group | Unknown | + + + Author + + + | Author | [facility] | | | and [place] | + + + | Organization | [facility] | | [...] [place] | | | | | [address] | | + + + + + | Arin Ulloa | ECON | Unknown | | + + + + + Care Team Providers + +------+ + | Care Plant And Equipment Worker Name | Role | Phone | + +------+ + PCP | Unavailable | + +------+ + Encounter Details +--------+ + + + + | Date | Type | Department | Care Team | Description | +--------+ + + + + | 06/09/ | Hospital | [facility] | Anthony Taylor, | | | 1999 | Encounter | DEBRA MEEK | [address] | | | | | [address] | [place], [place] | | | | | [place], [place] | [id number] | | | | | [address] | | | | | | [phone] | | | +--------+ + + + [...] [place] | | | | | | [address] | | | | | | | | +--------+---------+ + + + documented as of this encounter Visit Diagnoses Not on filedocumented in this encounter"
--- OUTSIDE RECORDS SUMMARY | ~2020-04-22 | XMS | Encounter Summary ---
Demographics + + + | Address | [address] | | | [place] [address] | + + + | Home Phone [...] [place] | | | | | [address] | | + + + + + | Arin Ulloa | ECON | Unknown | | + + + + + Care Team Providers + +------+ + | Care Glaze Wiper Name | Role | Phone | + +------+ + PCP | Unavailable | + +------+ + Encounter Details +--------+ + + + + | Date | Type | Department | Care Team | Description | +--------+ + + + + | 10/15/ | Orders Only | [facility] | RyneghazalAndrade, | | | 2019 | | CARDIOLOGY [place] | [address] | | | | | [address] | [place], [place] | | | | | [place], [place] | [address] | | | | | [address] | | | | | | [phone] | | | +--------+ + + + [...] | | | | | [place] | | | | | | [address] | | | | | | | [...] + + + + | Non- | 4.65 | 4.3 - 5.7 10 | EXTERNAL | | | Red Blood [...]
--- OUTSIDE RECORDS SUMMARY | ~2020-04-22 | XMS | Encounter Summary ---
Demographics + + + | Address | [address] | | | [place] [address] | + + + | Home Phone | | + + + | Preferred Language | Unknown | + + + | Marital Status | | + + + | Sabianist Affiliation | 1077 | + + + | Race | Unknown | + + + | Ethnic Group | Unknown | + + + Author + + + | Author | [facility] | | | and [place] | + + + | Organization | [facility] | | [...] [place] | | | | | [address] | | + + + + + | Arin Ulloa | ECON | Unknown | | + + + + + Care Team Providers + +------+ + | Care Video Specialist Name | Role | Phone | [...] [address] | | | | | [place], [place] | [address] | | | | | [address] | [place] [address] | | | | | [phone] | [phone] | | | | | | | [...] [place] | | | | | | [address] | | | | | | | [...] + + + + | Non- | 4.73 | 4.20 - 5.70 | EXTERNAL | | | Red Blood | | 10*6/uL | LAB | | | Cells | [...]
--- OUTSIDE RECORDS SUMMARY | ~2020-04-22 | XMS | Encounter Summary ---
Demographics + + + | Address | [address] | | | [place] [address] | + + + | Home Phone | | + + + | Preferred Language | Unknown | + + + | Marital Status | | + + + | Protestant Affiliation | Unknown | + + + | Race | White | + + + | Ethnic Group | Not or | + + + Author + + + | Author | [facility] | + + + | Organization | [facility] | + + + | Address | Unknown | + + + | Phone | Unavailable | + + + Care Team Providers + +------+ + | Care Oncology Physician Name | Role | Phone | + [...] [id number] | | | | | | [facility] | | | | | | and Healing, | | | | | | Building [address], [address]th | | | | | | Floor [place], [place] | | | | | | [address] | | | | | | [phone] | | | +--------+ + + + [...] papular | | | | | | [id number] skin, | | | | | | [id number]. Thesurgical | | | | | | [...] skin, | | | | | | [id number]. The surgical | | | | | [...] | | | | | | papular [id number]-ric | | | | | | skin, [id number]. The | | | | | | [...] [facility] | [address] | [place] [address] | | | DERMATOPATHOLOGY | [address] [...]
--- OUTSIDE RECORDS SUMMARY | ~2020-04-22 | XMS | Clinical Summary ---
Demographics + + + | Address | [address] | | | [place] [address] | + + + | Home Phone | | + + + | Preferred Language | Unknown | + + + | Marital Status | | + + + | Tenriism Affiliation | Unknown | + + + | Race | White | + + + | Ethnic Group | Not or | + + + Author + + + | Author | [facility] | + + + | Organization | [facility] | + + + | Address | Unknown | + + + | Phone | Unavailable | + + + Care Team Providers + +------+ + | Care Roll Mechanic Name | Role | Phone | + +------+ + PCP | Unavailable | + +------+ + Source Comments [facility] is fully live on both [facility] and [facility] InPatient.[facility] Allergies Not on File Medications Not on [...] | | | | all | | [address] | | | | | | dates | | | | + +--------+ +--------+ + +--------+ | [place] | BLUE | [phone] | Effect | [phone] | [address] | PPO | | | CROSS | | bc | [address] | [address] | | | | [place] | | for | | [place], | | | | L | | all | | [place] [address] | | | | | | dates [...] | 1936 | [phone] | [place] [address] | | | sonny | | | 0 (Home) | | + +--------+ +--------+ + +"
--- OUTSIDE RECORDS SUMMARY | ~2020-04-22 | XMS | Encounter Summary ---
Demographics + + + | Address | [address] | | | [place] [address] | + + + | Home Phone [...] [place] | | | | | [address] | | + + + + + | Arin Ulloa | ECON | Unknown | | + + + + + Care Team Providers + +------+ + | Care Generation Engineering Technologist Name | Role | Phone | + [...] | | | | | [address] | [address] | | | | | [place], [place] | [place] [address] | | | | | [address] | [phone] | | | | | [phone] | | | +--------+ + + + [...] 08/06/19 1627 by | | eral | [id number]-[id number] catheter system; | Vira Carney, | Fabricio [...] + + documented as of this encounter OR Notes Anesthesia Postprocedure Evaluation - Manan Self MD - 08/06/2019 4:42 PM PSTFo rmatting of this note might be different from the original. ANESTHESIA POSTANESTHESIA EVALUATION Deep Ulloa 83 y.o. male 1935 [id number] Did well with LMA today for extensive eye surgery. No anesthesia complications. Procedure(s) RIGHT EYE LENS EXCHANGE W/ VITRECTOMY (Right Eye) Cooperates? Yes Mental Status Performs simple tasks. Respiratory Satisfactory - Airway patent (self maintained). Cardiovascular Satisfactory - Blood pressure and heart rate acceptable Temperature Satisfactory Pain Satisfactory N/V Control Satisfactory Hydration Satisfactory - No signs of dehydration Vitals Value Taken Time Temp 36 C (96.8 F) 08/06/2019 15:45 Pulse 53 08/06/2019 16:08 Resp 13 08/06/2019 15:47 BP 123/64 08/06/2019 16:02 Arterial Line BP Arterial Line BP 2 SpO2 95 % 08/06/2019 16:08 Vitals shown include unvalidated device data. Electronically signed by Manan Self MD 08/06/2019 16:42 [facility] signed by Manan Self MD a t 08/06/2019 4:43 PM PSTAnesthesia Procedure Notes - Manan Self MD - 08/06/2019 1:28 PM PSTAssociated Order(s): AirwayAnesthesia Airway Placement 08/06/2019 13:16 Preprocedure check: patient identified, oxygen, airway assessed, suction, airway equipment checked and patient reassessment prior to induction Mask ventilation: easy Attempts: 1 Airway type: laryngeal mask Size: 4 Cuffed: cuffed Route, reference point: center of mouth Tube secured with: adhesive tape Trauma: none Tube placement verification: bilateral chest rise, equal bilateral breath sounds and carbon dioxide detection Performing provider: Manan Self MD Comments: Atraumatic LMA placement with quality seat and seal. Please see intraoperative grid for any additional medication documentation. nesthesia Prep rocedure Evaluation - Manan Self MD - 08/06/2019 12:57 PM PST ANESTHESIA PREANESTHESIA EVALUATION Deep Ulloa 83 y.o. male 1935 [id number] Procedure(s): RIGHT EXTRACTION CATARACT W/ OR W/O LENS IMPLANT W/ VITRECTOMY (Right Eye) Medical,anesthesia, drug, allergy histories reviewed, NPO status verified. ECG reviewed. Labs reviewed. (+) perioperative beta-holly/statin given/taken. Review of Systems / Med History Anesthesia History Reports a "two hour eye surgery" that was "torture" while he was under MAC anesthesia. No anesthesia complications except where noted below. Family Anesthesia History Family Anesthesia Negative except where noted below. Cardiovascular Negative except where noted below. Exercise tolerance >4 METS (+) hypertension and essential (-) dysrhythmias: (+) coronary artery disease (NSTEMI 2018). (+) past myocardial infarction occured more than 28 days prior to admission. (+) CABG. (+) PVD: . Pulmonary (+) asthma.(-) tobacco use (uses smokeless tobacco). Gastrointestinal/Hepatic (+) hypercholesterolemia. Renal Negative except where noted below. Endocrine (+) corticosteroid therapy (daily prednisone). (-) obesity. Hematology/Other Lab Results Component Value Date WBC 8.66 08/02/2019 HGB 14.3 08/02/2019 HCT 41.9 08/02/2019 MCV 98.0 08/02/2019 LABPLAT 186 12/28/2018 PLT 167 08/02/2019 .(-) anemia. (+) coagulopathy (On plavix). Neuromuscular (+) arthritis (RA - on steroid). Physical Exam Airway MP II, TM >3 FB, Neck: full ROM, extends >30 degrees. Facial hair present: No Dental (+) age appropriate dentition. CV cardiovascular normal Rhythm regular. Rate normal. Pulm Clear to auscultation bilaterally. Neuro grossly normal. Other Finger amputations on left Anesthesia Plan ASA: 3 (CAD with h/o CABG, NSTEMI, and stents) Type: MAC. Induction: Local anesthesia and intravenous. Potential problems: None anticipated. Monitors: Standard ASA monitors. Postop Pain Management: Consent statement: Anesthetic plan, alternatives, risks and benefits discussed with patient and spouse. drug r eaction, heart problems, nausea, pain, perioperative CV events, respiratory events, delirium Consenting person understands and agrees to proceed. PARQ. Discussed MAC anesthesia with patient, including brief dose of IV medication administration with planned intra-op emergence as Dr. Spencer prefers to be interactive with patients intra -op. Patient acknowledges understanding of planned anesthetic technique. Plan for possible GA pending the time estimate from Dr. Spencer. Patient aware that MAC may be used but desires a GA if there is any risk of it going over 30 minutes. . Electronically Signed by: Manan Self MD ESig date/time: 08/06/2019 12:56 documented in t his encounter Miscellaneous Notes Anesthesia Post-op Handoff - Manan Self MD - 08/06/2019 3:27 PM PST ANESTHESIA HANDOFF NOTE Deep Ulloa 83 y.o. male 1935 [id number] RIGHT EYE LENS EXCHANGE W/ VITRECTOMY (Right Eye) HANDOFF NOTE Handoff Protocol Used: post-procedure handoff checklist completed The following were completed during the transfer of care: 1. Identification of patient 2. Identification of responsible practitioner (primary service) 3. Discussion of pertinent medical history 4. Discussion of the surgical/procedure course (procedure, reason for surgery, procedure pe rformed) 5. Intraoperative anesthetic management and issues/concerns 6. Expectations/plans for the early post-procedure period 7. Opportunity for questions and acknowledgement of understanding of report from receiving team Patient Location: Phase I Condition: sedated Airway/O2: no supplemental O2 Comments: Supplemental Oxygen used as necessary to maintain Oxygen Saturation at or above 9 2% The significant anesthesia concerns and VS in Epic were reviewed with the receiving team. Manan Self MD 08/06/2019 15:27 [facility] signed by Manan Self MD a t 08/06/2019 3:27 PM PSTdocumented in this encounter Plan of Treatment +--------+---------+ + + + | Date | Type | Specialty | Care Team | Description | +--------+---------+ + + + | 08/23/ | Office | Cardiology | Andrade Hobbs, | | | 2019 | Visit | | MD [address] | | | | | | [place] | | | | | | [address] | | | | | | | [...] 1:28 PM PST Anesthesia Airway | | [id number]/8/2019 13:16Preprocedure check: patient identified, oxygen, airway assessed, [...] | Intravenous, PRN, Starting Fri | | 1:14 | | | | | 08/06/19 [...]
--- OUTSIDE RECORDS SUMMARY | ~2020-04-22 | XMS | Encounter Summary ---
Demographics + + + | Address | [address] | | | [place] [address] | + + + | Home Phone [...] + + | Author | [facility] | | | and [place] | + + + | Organization | [facility] | | [...] [place] | | | | | [address] | | + + + + + | Arin Ulloa | ECON | Unknown | | + + + + + Care Team Providers + +------+ + | Care Photo Mask Inspector Name | Role | Phone | + +------+ + | Fabricio Bah | PCP | | | MD | | | + +------+ + Encounter Details +--------+ + + + + | Date | Type | Department | Care Team | Description | +--------+ + + + + | 10/14/ | Orders Only | [facility] | Andrade Hobbs, | | | 2019 | | CARDIOLOGY [place] | [address] | | | | | [address] | [place], [place] | | | | | [place], [place] | [address] | | | | | [address] | | | | | | [phone] | | | +--------+ + + + [...] [place] | | | | | | [address] | | | | | | | | +--------+---------+ + + + documented as of this encounter Visit Diagnoses Not on filedocumented in this encounter"
--- OUTSIDE RECORDS SUMMARY | ~2020-04-22 | XMS | Encounter Summary ---
Demographics + + + | Address | [address] | | | [place] [address] | + + + | Home Phone | | + + + | Preferred Language | Unknown | + + + | Marital Status | | + + + | Judaism Affiliation | 1077 | + + + | Race | Unknown | + + + | Ethnic Group | Unknown | + + + Author + + + | Author | [facility] | | | and [place] | + + + | Organization | [facility] | | [...] [place] | | | | | [address] | | + + + + + | Arin Ulloa | ECON | Unknown | | + + + + + Care Team Providers + +------+ + | Care Track Moving Machine Operator Name | Role | Phone | + +------+ + | Fabricio Bah | PCP | | | MD | | | + +------+ + Encounter Details +--------+ + + + + | Date | Type | Department | Care Team | Description | +--------+ + + + + | 01/09/ | Documentati | [facility] | Andrade Hobbs, | | | 2020 | on | CARDIOLOGY [place] | [address] | | | | | [address] | [place], [place] | | | | | [place], [place] | [address] | | | | | [address] | | | | | | [phone] | | | +--------+ + + + [...] [place] | | | | | | [address] | | | | | | | | +--------+---------+ + + + documented as of this encounter Visit Diagnoses Not on filedocumented in this encounter"
--- OUTSIDE RECORDS SUMMARY | ~2020-04-22 | XMS | Encounter Summary ---
Demographics + + + | Address | [address] | | | [place] [address] | + + + | Home Phone | | + + + | Preferred Language | Unknown | + + + | Marital Status | | + + + | Mormon Affiliation | 1077 | + + + | Race | Unknown | + + + | Ethnic Group | Unknown | + + + Author + + + | Author | [facility] | | | and [place] | + + + | Organization | [facility] | | [...] [place] | | | | | [address] | | + + + + + | Arin Ulloa | ECON | Unknown | | + + + + + Care Team Providers + +------+ + | Care Associate Material Handler Name | Role | Phone | + +------+ + | Fabricio Bah | PCP | | | MD | | | + +------+ + Encounter Details +--------+ + + + + | Date | Type | Department | Care Team | Description | +--------+ + + + + | 10/28/ | Orders Only | [facility] | Andrade Hobbs, | | | 2019 | | CARDIOLOGY [place] | [address] | | | | | [address] | [place], [place] | | | | | [place], [place] | [address] | | | | | [address] | | | | | | [phone] | | | +--------+ + + + [...] [place] | | | | | | [address] | | | | | | | | +--------+---------+ + + + documented as of this encounter Visit Diagnoses Not on filedocumented in this encounter"
--- OUTSIDE RECORDS SUMMARY | ~2020-04-22 | XMS | Encounter Summary ---
Demographics + + + | Address | [address] | | | [place] [address] | + + + | Home Phone | | + + + | Preferred Language | Unknown | + + + | Marital Status | | + + + | Yazidism Affiliation | 1077 | + + + [...] [place] | | | | | [address] | | + + + + + | Arin Ulloa | ECON | Unknown | | + + + + + Care Team Providers + +------+ + | Care Dam Operator Name | Role | Phone | + +------+ + | Fabricio Bah | PCP | | | MD | | | + +------+ + Reason for Visit + + + | Reason | Comments | + + + | Follow-up | Telephone visit | + + + | Rheumatoid Arthritis | | + + + Encounter Details +--------+ + + + + | Date | Type | Department | Care Team | Description | +--------+ + + + + | 03/20/ | Virtual | [facility] | Roxi, | Rheumatoid arthritis | | 2020 | Office | RHEUMATOLOGY [address] | Tiff Reina [facility] [address] | of multiple sites | | | Visit | [address] | [address] | with negative | | | | [place] | [place] [address] | rheumatoid factor | | | | [address] | [phone] | (HCC) (Primary Dx); | | | | [phone] | | Rheumatoid | | | | | | arthritis, involving | | | | | | unspecified site, | | | | | | unspecified | | | | | | rheumatoid factor | | | | | | presence (HCC); High | | | | | | risk medication use | +--------+ + + + + Social [...] + + documented as of this encounter Patient Instructions Patient Instructions Maki Mccloud, Store Hand - 03/20/2020 2:00 PM PDTWe hope that you have experienced exceptional care today and that you found our service to be courte ous and helpful. If you have any questions you can send us a message/request using invino or call our o ffice at [phone]. To reach Maki FABIAN type extension [phone]. If you are unable to reach a [...] can also look at your results on VERTILASt. If you are experiencing an emergency, please call 911 documented in this encounter Progress Notes Tiff Diane ARNP - 03/20/2020 2:00 PM PDTFormatting of this note might be diffe rent from the original. Subjective: Patient ID: Deep Ulloa is a 84 y.o. male. Reason for visit: Rheumatoid Arthritis Here for: telephone visit Rheumatological History Patient was Initially diagnosed with PMR in 2010. Developed symptoms of RA in 2012. Serology: Elevated CRP/ESR, Neg.GÓMEZ, Neg.RF, Neg.CCP antibody Imagin- hands- possible early RA changes, mild OA changes HPI Consent: Patient, Deep Ulloa has verbally and independently initiated the visit with Aleida VILLARREAL on 03/20/2020 and consents to receive care by Telephone Best phone number for contact and follow up [phone], initiated 1400, ended 1411 Is it okay to leave a message if are unable to reach you? Yes Last visit:--08/02/2019 Changes in overall health since last visit: Having a tooth pulled this afternoon, otherwise no changes since last visit Main Concern:RA--- doing well on current regimen Denies joint pain, swelling, AM stiffness > [...] dysuria and hematuria. Musculoskeletal: Positive for arthralgias (shoulder). Negative for joint swelling. Skin: Negative for rash. Neurological: Negative for numbness and headaches. Psychiatric/Behavioral: The patient is not nervous/anxious. Tiff Mistry, reviewed the above ROS, all other systems are reviewed and nega tive Objective: Physical Exam Pulmonary: Comments: No audible respiratory wheezing or distress noted Neurological: Mental Status: He is alert. Psychiatric: Behavior: Behavior is cooperative. Labs reviewed in Psychiatric ---08/02/2019 Reviewed chart notes, labs and imaging form other provider(s) since the last visit. Assessment and Plan: Visit Diagnoses and Associated Orders: I spent a total of 10 minutes of Low complexity counseling with patient and/or family. Rheumatoid arthritis of multiple sites with negative rheumatoid factor (HCC) (Primary) Assessment & Plan: No clinical evidence of active disease on today's exam. Responding well to current treatment plan. No change in treatment plan. Patient understands that treatment is senior care and if patient fails to continue regimen , the disease has propensity to flare. RTC 3-4 mos Orders: - sulfaSALAzine (AZULFIDINE) 500 mg tablet; take 1 tablet by mouth twice a day Dispens e: 180 tablet; Refill: 0 Rheumatoid arthritis, involving unspecified site, unspecified rheumatoid factor presence (H CC) Assessment & Plan: No clinical evidence of active disease on today's exam. Responding well to current treatment plan. No change in treatment plan. Patient understands that treatment is termination clerk and if patient fails to continue regimen , the disease has propensity to flare. RTC 3-4 mos Orders: - CBC with Differential; Standing - Comprehensive Metabolic Panel; Standing - C-Reactive Protein; Standing - Sedimentation Rate; Standing High risk medication use Assessment & Plan: Update labs next week- will fax to [facility] in [place], and continue to monitor clos keila while on DMARD and/or biologic medication. Counseled regarding medication compliance as well as potential toxicities with medications such as cytopenias, liver abnormalities and r isks for infection, and the need for routine blood work monitoring. Other orders - predniSONE (DELTASONE) 5 mg tablet; TAKE 1 TABLET DAILY WITH BREAKFAST Dispense: 9 0 tablet; Refill: 1 Risks and benefits of a treatment plan were explained to patient. Patient will follow up with their primary care physician in regards to non-rheumatological symptoms listed under review of systems. Patient was advised to contact our office if there are any change in their symptoms. This document has been prepared with Classical Connection voice recognition system. The possibility of "s ound alike" pants busheler errors, and additions, or deletions may occur. If there is any que stion with respect to clarity of the message being conveyed, please contact me directly for clarification. documented in this encounter Miscellaneous Notes Assessment & Plan Note - Tiff Diane ARNP - 03/20/2020 2:13 PM PDTAssociated Pr oblem(s): High risk medication useUpdate labs next week- [facility] [place], and continue to monitor closely while on DMARD and/or biologic medication. Counseled r egarding medication compliance as well as potential toxicities with medications such as cyto penias, liver abnormalities and risks for infection, and the need for routine blood work mon itoring. ssessment & Plan Note - Tiff Diane ARNP - 03/20/2020 8:35 AM PDTAssociated Problem(s): Rheu matoid arthritis (HCC)No clinical evidence of active disease on today's exam. Responding well to current treatment plan. No change in treatment plan. Patient understands that treatment is senior care and if patient fails to continue regimen , the disease has propensity to flare. RTC 3-4 mos documented in this encounter Plan of Treatment +--------+---------+ + + + | Date | Type | Specialty | Care Team | Description | +--------+---------+ + + + | 08/23/ | Office | Cardiology | Andrade Hobbs, | | | 2019 | Visit | | MD Curtis ESPARZA | | | | | | [facility] | | | | | | [address] | | | | | | | | +--------+---------+ + + + + +------+--------+ + + | Name | Type | Priori | Associated Diagnoses | Order Schedule | | | | ty | | | + +------+--------+ + + | CBC with | Lab | Today | Rheumatoid | 6 Occurrences | | Differential | | | arthritis, involving | starting 03/20/2020 | | | | | unspecified site, | until 09/19/2021 | | | | | unspecified | | | | | | rheumatoid factor | | | | | | presence (HCC) | | + +------+--------+ + + | Comprehensive | Lab | Today | Rheumatoid | 6 Occurrences | | Metabolic Panel | | | arthritis, involving | starting 03/20/2020 | | | | | unspecified site, | until 09/19/2021 | | | | | unspecified | | | | | | rheumatoid factor | | | | | | presence (HCC) | | + +------+--------+ + + | C-Reactive Protein | Lab | Today | Rheumatoid | 6 Occurrences | | | | | arthritis, involving | starting 03/20/2020 | | | | | unspecified site, | until 09/19/2021 | | | | | unspecified | | | | | | rheumatoid factor | | | | | | presence (HCC) | | + +------+--------+ + + | Sedimentation Rate | Lab | Today | Rheumatoid | 6 Occurrences | | | | | arthritis, involving | starting 03/20/2020 | | | | | unspecified site, | until 09/19/2021 | | | | | unspecified | | | | | | rheumatoid factor | | | | | | presence ([facility]) | | + +------+--------+ + + documented as of this encounter Visit Diagnoses + + | Diagnosis | + + | Rheumatoid arthritis of multiple sites with negative rheumatoid factor (HCC) - Primary | + + | Rheumatoid arthritis, involving unspecified site, unspecified rheumatoid factor | | presence (HCC) | + + | High risk medication use Encounter for long-term (current) use of other medications | + + documented in this encounter
--- OUTSIDE RECORDS SUMMARY | ~2020-04-22 | XMS | Encounter Summary ---
Demographics + + + | Address | [address] | | | [place] [address] | + + + | Home Phone | | + + + | Preferred Language | Unknown | + + + | Marital Status | | + + + | Christianity Affiliation | 1077 | + + + [...] [place] | | | | | [address] | | + + + + + | Arin Ulloa | ECON | Unknown | | + + + + + Care Team Providers + +------+ + | Care Vascular Surgeon Name | Role | Phone | + +------+ + PCP | Unavailable | + +------+ + Encounter Details +--------+ + + + + | Date | Type | Department | Care Team | Description | +--------+ + + + + | 10/03/ | Hospital | [facility] | Swapna Carrera MD | Unspecified | | 2009 | [facility] | | Tachycardia | | | | CLINICAL DECISION | | | | | | [address] | | | | | | [place], [place] | | | | | | [address] | | | | | | [phone] | | | +--------+ + + + [...] [place] | | | | | | [address] | | | | | | | [...] Performed At | + + + | [facility] | | | [facility] [address] | | | , | | | [id number]/CARDIOLOGY Patient Name: BAYRON ULLOA Date of : | | | 1935 Medical Record: [id number] Account: [id number] | | | GURJIT/CARIDAD [id number]/ Exam Date/Time: 10/03/2009 | | | 11:30 A Ordering Provider: SWAPNA CARERRA Order Detail: [id number] / | | | [...] the right groin with 1% lidocaine. A 6-Sami vascular | | | sheath was inserted [...] then exchanged over the wire to a 5-Sami | | | IM catheter which was [...] as well | | | as the [place] artery. 7. Two saphenous vein grafts to [...] 50 mL. | | | Read by SWAPNA CARRERA MD 10/04/2009 09:03 P Electronically Signed | | | by SWAPNA CARRERA MD 10/12/2009 09:12 P P | | | A /[id number]/ cc: MARIANNE SERRANO DO | | | DO SWAPNA HARDING MD | | + + + + + | Procedure Note | + + | Reginaldo Valencia - 05/23/2019 6:36 PM PDT | | [facility] | | [facility] [address] | | , | | | | [id number]/CARDIOLOGY | | | | Patient Name: BAYRON ULLOA | | Date of : 1935 | | Medical Record: [id number] | | Account: [id number] | | OPS/CDU [id number]/ | | | | | | Exam Date/Time: 10/03/2009 11:30 A | | Ordering Provider: SWAPNA CARRERA | | Order Detail: [id number] / / [...] groin | | with 1% lidocaine. A 6-Sami vascular sheath was inserted in the right [...] then exchanged over the wire to a 5-Sami IM | | catheter which was engaged selectively with the ostium of the RAM. | | Contrast was injected, multiple angiograms were obtained in different | | angles. The catheter was then exchanged over the wire to a pigtail | | catheter that was introduced into the left ventricular cavity. A left | | ventriculogram was obtained in the 30-degree OATSE projection using 36 mL | | of [...] graft as well | | as the [place] artery. | | 7. Two saphenous vein [...] patent. The LAD beyond the RAM anastomosis | | did not have any [...] | | | Read by | | SWAPNA CARRERA MD 10/04/2009 09:03 P | | Electronically Signed by | | SWAPNA CARRERA MD 10/12/2009 09:12 P | | | | P | | A | | /mary/[id number]/ | | cc: MARIANNE SERRANO DO | | NAYAN RUANO DO | | SWAPNA CARRERA MD | + + documented in this encounter Visit Diagnoses + + | Diagnosis | + + | Tachycardia, unspecified | + + documented in this encounter"
--- OUTSIDE RECORDS SUMMARY | ~2020-04-22 | XMS | Encounter Summary ---
Demographics + + + | Address | [address] | | | [place] [address] | + + + | Home Phone | | + + + | Preferred Language | Unknown | + + + | Marital Status | | + + + | Worship Affiliation | 1077 | + + + [...] [place] | | | | | [address] | | + + + + + | Arin Ulloa | ECON | Unknown | | + + + + + Care Team Providers + +------+ + | Care Landfill Attendant Name | Role | Phone | + +------+ + | Fabricio Bah | PCP | | | MD | | | + +------+ + Encounter Details +--------+ + + + + | Date | Type | Department | Care Team | Description | +--------+ + + + + | 08/02/ | Orders Only | [facility] | Tejinder Lau, | Other group home | | 2019 | | [address] | Shank Threader | (current) drug | | | | [place] | | therapy; Rheumatoid | | | | [address] | | arthritis of | | | | [phone] | | multiple sites | | | [...] [place] | | | | | | [address] | | | | | | | | +--------+---------+ + + + documented as of this encounter Procedures + +--------+ + + + | Procedure Name | Priori | Date/Time | Associated Diagnosis | Comments | | | ty | | | | + +--------+ + + + | SEDIMENTATION RATE | Routin | 08/02/2019 | Other child neurologist | Results for this | | | [...] WITH | Routin | 08/02/2019 | Other group home | Results for this | | DIFFERENTIAL [...] COMPREHENSIVE | Routin | 08/02/2019 | Other child neurologist | Results for this | | METABOLIC [...] | | | Absolute | performed at [facility];[address] | [address] | LAB | | | | [facility] | | [facility] | | | | [address];[place] [address] | | LABORATORY | | + + + + + + + + | Specimen | + + | Blood | + + + + + + + | Performing | Address | City/State/Zipcode | Phone Number | | Organization | | | | + + + + + | REFERENCE LAB | [address] | [place] | [phone] | | [facility] | [address] | [address] | | | LABORATORY | | | | + + + + + | REFERENCE LAB | [address] [place] [address] | [place] | | | [facility] | Bl[address] | [address] | | | LABORATORY | | | [...] | | | | | performed at [facility];[address] | | | | | | [facility] | | | | | | [facility];[place] [address] | | | | | | | | | | + + + + + + + + | Specimen | + + | Blood | + + + + + + + | Performing | Address | City/State/Zipcode | Phone Number | | Organization | | | | + + + + + | REFERENCE LAB | [address] [place] [address] | [place], [place] | [phone] | | [facility] | [address] | [address] | | | LABORATORY | | | | + + + + + | REFERENCE LAB | [address] [place] [address] | [place], [place] | | | [facility] | [address] | [address] | | | LABORATORY | | | [...] [facility] | | | | Blvd;[place] [address] | | LABORATORY | | + + + + + + + + | Specimen | + + | Blood | + + + + + + + | Performing | Address | City/State/Zipcode | Phone Number | | Organization | | | | + + + + + | REFERENCE LAB | [address] | [place] | [phone] | | [facility] | [address] | [address] | | | LABORATORY | | | | + + + + + | REFERENCE LAB | [address] | [place] | | | [facility] | [address] 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
--- OUTSIDE RECORDS SUMMARY | ~2020-04-22 | XMS | Encounter Summary ---
Demographics + + + | Address | [address] | | | [place] [address] | + + + | Home Phone | | + + + | Preferred Language | Unknown | + + + | Marital Status | | + + + | Restorationist Affiliation | 1077 | + + + [...] [place] | | | | | [address] | | + + + + + | Arin Ulloa | ECON | Unknown | | + + + + + Care Team Providers + +------+ + | Care Development Analyst Name | Role | Phone | [...] + + | 09/18/ | Refill | [facility] | Schiefelbein, | Medication Refill | | 2019 | | RHEUMATOLOGY [address] | Tiff Reina, [facility] [address] | | | | | [address] | [address] | | | | | [place], [place] | [place] [address] | | | | | [address] | [phone] | | | | | [phone] | | | +--------+--------+ + + + [...] Miscellaneous Notes Telephone Encounter - Maki Mccloud, Belt Loop Machine Operator - 09/20/2019 7:50 AM PSTMedicat ion requested:sulfasalazine By:alexandru morrison Last filled:06/28/2019 Last Labs:08/02/2019 Last visit:08/02/2019 Next visit: 01/31/2020 Eye exam:na No result notes Last chart note stated:No clinical evidence of active disease on today's exam. Responding well to current treatment plan. No change in treatment plan. Patient understands that treatment is alf and if patient fails to continue regimen [...] [place] | | | | | | [address] | | | | | | | | +--------+---------+ + + + documented as of this encounter Visit Diagnoses + + | Diagnosis | + + | Rheumatoid arthritis of multiple sites with negative rheumatoid factor (HCC) - Primary | + + documented in this encounter"
--- OUTSIDE RECORDS SUMMARY | ~2020-04-22 | XMS | Encounter Summary ---
Demographics + + + | Address | [address] | | | [place] [address] | + + + | Home Phone | | + + + | Preferred Language | Unknown | + + + | Marital Status | | + + + | Samaritan Affiliation | 1077 | + + + [...] [place] | | | | | [address] | | + + + + + | Arin Ulloa | ECON | Unknown | | + + + + + Care Team Providers + +------+ + | Care Assembler Type Bar And Segment Name | Role | Phone | + +------+ + | Fabricio Bah | PCP | | | MD | | | + +------+ + Encounter Details +--------+ + + + + | Date | Type | Department | Care Team | Description | +--------+ + + + + | 10/06/ | Orders Only | [facility] | Andrade Hobbs, | | | 2019 | | CARDIOLOGY [place] | [address] | | | | | [address] | [place], [place] | | | | | [place], [place] | [address] | | | | | [address] | | | | | | [phone] | | | +--------+ + + + [...] [place] | | | | | | [address] | | | | | | | | +--------+---------+ + + + documented as of this encounter Visit Diagnoses Not on filedocumented in this encounter"
--- OUTSIDE RECORDS SUMMARY | ~2020-04-22 | XMS | Encounter Summary ---
Demographics + + + | Address | [address] | | | [place] [address] | + + + | Home Phone | | + + + | Preferred Language | Unknown | + + + | Marital Status | | + + + | Yarsani Affiliation | 1077 | + + + | Race | Unknown | + + + | Ethnic Group | Unknown | + + + Author + + + | Author | [facility] [...] [place] | | | | | [address] | | + + + + + | Arin Ulloa | ECON | Unknown | | + + + + + Care Team Providers + +------+ + | Care Superintendent Seed Mill Name | Role | Phone | + +------+ + | Fabricio Bah | PCP | | | MD | | | + +------+ + Encounter Details +--------+ + + + + | Date | Type | Department | Care Team | Description | +--------+ + + + + | 03/29/ | Orders Only | [facility] | Philly Hanna | | | 2019 | | RHEUMATOLOGY [address] | MD Richie [address] | | | | | [address] | [address] | | | | | [place] | [place] [address] | | | | | [address] | [phone] | | | | | [phone] | | | +--------+ + + + [...] | | | | | [place] | | | | | | [address] | | | | | | | | +--------+---------+ + + + documented as of this encounter Visit Diagnoses Not on filedocumented in this encounter"
--- OUTSIDE RECORDS SUMMARY | ~2020-04-22 | XMS | Encounter Summary ---
Demographics + + + | Address | [address] | | | [place] [address] | + + + | Home Phone [...] [place] | | | | | [address] | | + + + + + | Arin Ulloa | ECON | Unknown | | + + + + + Care Team Providers + +------+ + | Care Naturopathic Physician Name | Role | Phone | [...] Description | +--------+--------+ + + + | 10/03/ | Refill | [facility] | Schiefelbein, | Medication Refill | | 2020 | | RHEUMATOLOGY [address] | Tiff Reina, [facility] [address] | | | | | [address] | [address] | | | | | [place], [place] | [place] [address] | | | | | [address] | [phone] | | | | | [phone] | | | +--------+--------+ + + + [...] this encounter Miscellaneous Notes Telephone Encounter - Deepa Newton Delinquency Prevention Officer - 10/04/2019 8:34 AM PSTForma tting of this note might be different from the original. Requested by: pharmacy Medication Requested: Requested Prescriptions Pending Prescriptions Disp Refills predniSONE (DELTASONE) 5 mg tablet [Pharmacy Med Name: PREDNISONE TAB 5MG] 90 tablet 1 Sig: TAKE 1 TABLET DAILY WITH BREAKFAST Last filled: 04/13/2019 Last seen: 08/02/2019 Most recent labs in chart: 08/02/2019 Any RCN: none Next Appt: 01/31/2020 Last Chart Note Stated: Last chart note stated:No clinical evidence of active disease on to day's exam. Responding well to current treatment plan. No change in treatment plan. Patient understands that treatment is usp and if patient fails to continue regimen , the disease has propensity to flare. Last Eye Exam: n/aElectronically signed by Deepa Newton Delinquency Prevention Officer at 020 8:38 AM PSTdocumented in this encounter Plan of Treatment +--------+---------+ + + + | Date | Type | Specialty | Care Team | Description | +--------+---------+ + + + | 08/23/ | Office | Cardiology | Andrade Hobbs, | | 2019 | Visit | | MD Curtis ESPARZA | | | | | | [place] | | | | | | [address] | | | | | | | | +--------+---------+ + + + documented as of this encounter Visit Diagnoses Not on filedocumented in this encounter"
--- OUTSIDE RECORDS SUMMARY | ~2020-04-22 | XMS | Encounter Summary ---
Demographics + + + | Address | [address] | | | [place] [address] | + + + | Home Phone | | + + + | Preferred Language | Unknown | + + + | Marital Status | | + + + | Jew Affiliation | 1077 | + + + | Race | Unknown | + + + | Ethnic Group | Unknown | + + + Author + + + | Author | [facility] | | | and [place] | + + + | Organization | [facility] | | | [...] [place] | | | | | [address] | | + + + + + | Arin Ulloa | ECON | Unknown | | + + + + + Care Team Providers + +------+ + | Care Middleware Developer Name | Role | Phone | + +------+ + | Fabricio Bah | PCP | | | MD | | | + +------+ + Encounter Details +--------+ + + + + | Date | Type | Department | Care Team | Description | +--------+ + + + + | 03/29/ | Telephone | [facility] | [facility] | | | [facility] | | RHEUMATOLOGY [address] | CHERELLE Morris [address] | | | | | [address] | [address] | | | | | [place], [place] | [place] [address] | | | | | [address] | [phone] | | | | | [phone] | | | +--------+ + + + [...] this encounter Miscellaneous Notes Telephone Encounter - Eliza Singh, Division Toll Wire Chief - 03/29/2020 10:16 AM PDTFaxed lab to [facility] Called patient spoke with she said he did some last week Will double check and will call pt back doc umented in this encounter Plan of Treatment +--------+---------+ + + + | Date | Type | Specialty | Care Team | Description | +--------+---------+ + + + | 08/23/ | Office | Cardiology | Andrade Hobbs, | | | 2019 | Visit | | MD Curtis ESPARZA | | | | | | [place] | | | | | | [id number] | | | | | | | | +--------+---------+ + + + documented as of this encounter Visit Diagnoses Not on filedocumented in this encounter"
--- OUTSIDE RECORDS SUMMARY | ~2020-04-22 | XMS | Encounter Summary ---
Demographics + + + | Address | [address] | | | [place] [address] | + + + | Home Phone [...] + + | Author | [facility] | | | and [place] | + + + | Organization | [facility] | | [...] [place] | | | | | [address] | | + + + + + | Arin Ulloa | ECON | Unknown | | + + + + + Care Team Providers + +------+ + | Care Insurance Verification Clerk Name | Role | Phone | + +------+ + | Fabricio Bah | PCP | | | MD | | | + +------+ + Encounter Details +--------+ + + + + | Date | Type | Department | Care Team | Description | +--------+ + + + + | 11/27/ | Orders Only | [facility] | Conversion | | | 2016 | | RHEUMATOLOGY [address] | Transaction, | | | | | [address] | Provider Unknown | | | | | [place] | | | | | | [address] | (Fax) | | | | | [phone] | | | +--------+ + + + [...] | | | | | [place] | | | | | | [address] | | | | | | | [...] | + +-------+ + + + | Non- | 4.65 | 10 | EXTERNAL | | | Red [...]
--- OUTSIDE RECORDS SUMMARY | ~2020-04-22 | XMS | Encounter Summary ---
Demographics + + + | Address | [address] | | | [place] [address] | + + + | Home Phone | | + + + | Preferred Language | Unknown | + + + | Marital Status | | + + + | Restoration Affiliation | 1077 | + + + | Race | Unknown | + + + | Ethnic Group | Unknown | + + + Author + + + | Author | [facility] | | | and [place] | + + + | Organization | [facility] | | [...] [place] | | | | | [address] | | + + + + + | Arin Ulloa | ECON | Unknown | | + + + + + Care Team Providers + +------+ + | Care Bindery Manager Name | Role | Phone | + +------+ + PCP | Unavailable | + +------+ + Encounter Details +--------+ + + + + | Date | Type | Department | Care Team | Description | +--------+ + + + + | 08/04/ | Hospital | [facility] | Derrek Darnell | | | 1997 | Encounter | DEBRA GENERIC | MD Zack [address] | | | | | CONVERSION | [address] | | | | | DEPART[address] | [place] [address] | | | | | [address] | [phone] | | | | | [place], [place] | | | | | | [address] | | | | | | [phone] | | | +--------+ + + + [...] [place] | | | | | | [address] | | | | | | | | +--------+---------+ + + + documented as of this encounter Visit Diagnoses Not on filedocumented in this encounter"
--- OUTSIDE RECORDS SUMMARY | ~2020-04-22 | XMS | Encounter Summary ---
Demographics + + + | Address | [address] | | | [place] [address] | + + + | Home Phone [...] [place] | | | | | [address] | | + + + + + | Arin Ulloa | ECON | Unknown | | + + + + + Care Team Providers + +------+ + | Care Hammer Driver Name | Role | Phone | + +------+ + | Fabricio Bah | PCP | | | MD | | | + +------+ + Encounter Details +--------+ + + + + | Date | Type | Department | Care Team | Description | +--------+ + + + + | 03/31/ | Orders Only | [facility] | Roxi, | | | 2018 | | RHEUMATOLOGY [address] | [address] | | | | | [address] | [address] | | | | | [place], [place] | [place] [address] | | | | | [address] | [phone] | | | | | [phone] | | | +--------+ + + + [...] [place] | | | | | | [address] | | | | | | | | +--------+---------+ + + + documented as of this encounter Visit Diagnoses Not on filedocumented in this encounter"
--- OUTSIDE RECORDS SUMMARY | ~2020-04-22 | XMS | Encounter Summary ---
Demographics + + + | Address | [address] | | | [place] [address] | + + + | Home Phone [...] [place] | | | | | [address] | | + + + + + | Arin Ulloa | ECON | Unknown | | + + + + + Care Team Providers + +------+ + | Care Special Assets Officer Name | Role | Phone | [...] + + | 06/26/ | Refill | [facility] | Philly Hanna | Medication Refill | | 2019 | | RHEUMATOLOGY [address] | MD Richie [address] | | | | | [address] | [address] | | | | | [place], [place] | [place] [address] | | | | | [address] | [phone] | | | | | [phone] | | | +--------+--------+ + + + [...] this encounter Miscellaneous Notes Telephone Encounter - Julio Quevedo, Drafter Electrical - 06/28/2019 8:13 AM [facility]:sulfasalazine By: Lidia Last filled:03/29/2019 Last Labs:12/28/2018 Last visit:12/28/2018 MS Next visit: 06/29/2019 MS Eye exam:n/a No result notes or see result note:n/a Last chart note stated: No clinical evidence of active disease on today's exam Stable on current regimen. Continue sulfasalazine 1 tab bid, and prednisone to 5 mg q day. He has been on this medicat ion for a number of years. Return to clinic in 6 months Please advise do cumented in this encounter Plan of Treatment +--------+---------+ + + + | Date | Type | Specialty | Care Team | Description | +--------+---------+ + + + | 08/23/ | Office | Cardiology | Andrade Hobbs, | | | 2019 | Visit | | MD Curtis ESPARZA | | | | | | [place] | | | | | | [address] | | | | | | | | +--------+---------+ + + + documented as of this encounter Visit Diagnoses Not on filedocumented in this encounter"
--- OUTSIDE RECORDS SUMMARY | ~2020-04-22 | XMS | Encounter Summary ---
Demographics + + + | Address | [address] | | | [place] [address] | + + + | Home Phone | | + + + | Preferred Language | Unknown | + + + | Marital Status | | + + + | Buddhism Affiliation | 1077 | + + + [...] [place] | | | | | [address] | | + + + + + | Arin Ulloa | ECON | Unknown | | + + + + + Care Team Providers + +------+ + | Care Ekg Monitor Name | Role | Phone | + +------+ + PCP | Unavailable | + +------+ + Encounter Details +--------+ + + + + | Date | Type | Department | Care Team | Description | +--------+ + + + + | 10/15/ | Hospital | [facility] | Divya Ochoa | | | 2001 | Encounter | [facility] | R | | | | | CONVERSION | | | | | | DEPARTMENT [address] | | | | | | [place] | | | | | | [place] | | | | | | [address] | | | | | | [phone] | | | +--------+ + + + [...] | | | | | [place] | | | | | | [address] | | | | | | | | +--------+---------+ + + + documented as of this encounter Visit Diagnoses Not on filedocumented in this encounter"
--- OUTSIDE RECORDS SUMMARY | ~2020-04-22 | XMS | Encounter Summary ---
Demographics + + + | Address | [address] | | | [place] [address] | + + + | Home Phone [...] [place] | | | | | [address] | | + + + + + | Arin Ulloa | ECON | Unknown | | + + + + + Care Team Providers + +------+ + | Care Package Dyer Name | Role | Phone | + [...] Description | +--------+---------+ + + + | 04/05/ | Office | [facility] | Andrade Garcia, | Chronic systolic | | 2020 | Visit | CARDIOLOGY [place] | [address] | heart failure (HCC) | | | | [address] | [place], [place] | (Primary Dx); | | | | WAY [facility] [address] | [id number] | Coronary artery | | | | [place] | | disease of bypass | | | | [address] | | graft of [place] | | | | [phone] | | heart with stable | | [...] encounter Progress Notes Andrade Garcia MD - 04/05/2020 1:15 PM PDTFormatting of this note might be different f rom the original. Date of visit: 04/05/2020 Primary Care Physician: Fabricio Bah MD CHIEF COMPLAINT: Chief Complaint Patient presents with Follow-up HISTORY OF PRESENT ILLNESS: Deep is 84 y.o. here for Complex past medical history. Previous coronary artery disease, CABG, and stable angina. Recurrent symptoms of chest pressure. On Isosorbide mononitrate 120 mg in am and 60 in pm. Continues to be on metoprolol succinate was decreased to 25 mg once daily. Weight has been stable. Limited activity level due to hip and lower back pain. Monitor his blood pressure at home and it has been controlled. Since prior encounter no further hospitalization. No further GI bleed. Restarted on benzodiazepine secondary to depression. Has been having increased fatigue lately. Last hospitalization in [facility] on 07 April 2018 secondary to non-ST elevation AL. L eft heart catheterization showed severe three-vessel [...] chart. Medications: Outpatient Encounter Medications as of 04/05/2020 Medication Sig Dispense Refill aspirin 81 MG tablet Take 81 mg by mouth daily. cholecalciferol (VITAMIN D-3) 25 mcg (1,000 units) tablet Take 25 mcg by mouth Daily. citalopram (CELEXA) 20 mg tablet Take 20 mg by mouth Daily. clopidogrel (PLAVIX) 75 mg tablet Take 1 tablet by mouth Daily. 90 tablet 3 isosorbide mononitrate 60 mg ER tablet Take 1.5 tablets by mouth Daily. Take 90 mg in a m and 30 mg in pm. 150 tablet 3 lisinopril (PRINIVIL, ZESTRIL) 10 mg tablet TAKE 1 TABLET DAILY 90 tablet 3 metoprolol succinate (TOPROL-XL) 25 mg 24 hr tablet Take 1 tablet by mouth Daily. 90 ta blet 3 nepafenac (ILEVRO) 0.3% ophthalmic suspension Place 1 drop into the right eye Daily. prednisoLONE (PRED FORTE) 1% ophthalmic suspension 1 [...] facility-administered encounter medications on file as of 04/05/2020. Allergies Allergies Allergen Reactions Adhesive & Tape [...] Genitourinary: Negative for dysuria or hematuria. Musculoskeletal: chronic arthritic pain, chronic back pain. Skin: Negative for rash. Neurological: Negative for dizziness. No numbness. No recent falls. No slurred speech. Hematological: No significant bruising. Psychiatric/Behavioral: No depression or anxiety. PHYSICAL EXAM Vital Signs: There were no vitals taken for this visit. GENERAL APPEARANCE: Alert, oriented, cooperative, no distress, [...] rash. Psych: Normal affect and mood. DATA 02/05/2020 WBC 7.9, hemoglobin 14.2, platelets 145. Sodium 136, potassium 3.8, chloride 101, bicarb 2 8, BUN 21, creatinine 1.08, GFR 65. AST 22, ALT 16, alk phos 73. Lab Results Component Value Date/Time NA 142 [...] GLUF 106 (A) 10/15/2018 TSH 0.725 04/08/2018 EC Ordered and reviewed by myself showed sinus bradycardia with long first-degree AV block, NH interval of almost 400 ms. Last Echo: 04/08/2018 1. This was a technically difficult study with suboptimal views. 2. Overall left ventricular systolic function is low-normal with, an EF between 50 - 55 %. 3. Wall motion abnormalities suggestive of CAD noted, posterior-lateral wall hypokinesis no andrae. Last Stress test: Last Cath: 04/08/2018 LM mild. LAD severe proximal 75-89%, 70% mid, 80% D1. Patent RAM to LAD Ramus 100% ostium. 99% distal SVG to Ramus with long segment of high clot burden extending to Ramus post anastomosis. 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 Severe 3 vessel Coronary artery disease with SATELLITE MANAGER of RCA. SATELLITE MANAGER of [place]. Patent RAM to LAD. Severe [...] total burden of 4.6%. Assessment: Patient is 84 y.o. with the following medical problems: 1. Severe coronary artery disease, as mentioned above. Stable anginal symptoms. 2. Chronic fatigue. 3. First degree AV block. 4. Hypertension. 5. History of GIB with no reoccurrence. 6. Dyslipidemia. 7. Mild ischemic cardiomyopathy. 8. Premature ventricular contractions with total burden of 4.6%. Plan: Symptoms have been controlled with isosorbide increased dose. Significant bradycardia and prolonged first degree AVB Low dose metoprolol succinate which will be stopped. Continue lisinopril 10 mg p.o. daily. Continue with isosorbide mononitrate increase to 120 mg in am and 90 mg pm. No evidence of volume overload. Tolerating antiplatelet therapy with clopidogrel, stop aspirin due to significant ecchymosi s. Follow-up in 3 to 4 months or [...] | +--------+---------+ + + + | 08/23/ Office | Cardiology | Andrade Garcia, | | | 2019 | Visit | | MD Curtis ESPARZA | | | | | | [place] | | | | | | [address] | | | | | | | [...] | | | | | graft of [place] | | | | | | heart with stable | | | | | | angina pectoris | | | | | | (HCC) Stable angina | | | | | | (HCC) Essential | | | | | | hypertension | | + +--------+ + + + documented in this encounter Results ECG 12 lead (04/05/2020 1:07 PM [...] OLGA | | | | | | ANDRADE SHETH ([id number]) on | | | | | | [...] Coronary artery disease of bypass graft of [place] heart with stable angina pectoris | | (HCC) | + + | Stable angina (HCC) Other and unspecified angina pectoris | + + | Essential hypertension Unspecified essential hypertension | + + documented in this encounter
--- OUTSIDE RECORDS SUMMARY | ~2020-04-22 | XMS | Encounter Summary ---
Demographics + + + | Address | [address] | | | [place] [address] | + + + | Home Phone [...] [place] | | | | | [address] | | + + + + + | Arin Ulloa | ECON | Unknown | | + + + + + Care Team Providers + +------+ + | Care Tube Builder Name | Role | Phone | + [...] Provider Unknown | | | | | [facility] [place] | [phone] | | | | | [address] | | | | | | [phone] | | | +--------+ + + + [...] | | | | | [place] | | | | | | [address] | | | | | | | | +--------+---------+ + + + documented as of this encounter Visit Diagnoses Not on filedocumented in this encounter"
--- OUTSIDE RECORDS SUMMARY | ~2020-04-22 | XMS | Encounter Summary ---
Demographics + + + | Address | [address] | | | [place] [address] | + + + | Home Phone | | + + + | Preferred Language | Unknown | + + + | Marital Status | | + + + | Temple Affiliation | 1077 | + + + [...] [place] | | | | | [address] | | + + + + + | Arin Ulloa | ECON | Unknown | | + + + + + Care Team Providers + +------+ + | Care Pharmacy Billing Adjudicator Name | Role | Phone | + +------+ + PCP | Unavailable | + +------+ + Encounter Details +--------+ + + + + | Date | Type | Department | Care Team | Description | +--------+ + + + + | 06/05/ | Hospital | [facility] | Anthony Juarez, | | | 1999 | Encounter | [facility] | MD [address] | | | | | LABORATORY [address] | [address] [place], | | | | | [address] [place], [place] | [place] [address] | | | | | [address] | [phone] | | | | | [phone] | | | +--------+ + + + [...] [place] | | | | | | [address] | | | | | | | | +--------+---------+ + + + documented as of this encounter Visit Diagnoses Not on filedocumented in this encounter"
--- OUTSIDE RECORDS SUMMARY | ~2020-04-22 | XMS | Encounter Summary ---
Demographics + + + | Address | [address] | | | [place] [address] | + + + | Home Phone | | + + + | Preferred Language | Unknown | + + + | Marital Status | | + + + | Latter Day Affiliation | Unknown | + + + | Race | White | + + + | Ethnic Group | Not or | + + + Author + + + | Author | [facility] | + + + | Organization | [facility] | + + + | Address | Unknown | + + + | Phone | Unavailable | + + + Care Team Providers + +------+ + | Care Wallpaper Hanger Name | Role | Phone | + +------+ + PCP | Unavailable | + +------+ + Encounter Details +--------+ + + + + | Date | Type | Department | Care Team | Description | +--------+ + + + + | 03/09/ | Documentati | UNKNOWN DEPARTMENT | Unknown . | | | 2018 | on | [address] [facility] | | | | | | Matthew [address]cc[address] | | | | | | [place], [place] | | | | | | [address] | | | +--------+ + + + [...]
--- OUTSIDE RECORDS SUMMARY | ~2020-04-22 | XMS | Encounter Summary ---
Demographics + + + | Address | [address] | | | [place] [address] | + + + | Home Phone | | + + + | Preferred Language | Unknown | + + + | Marital Status | | + + + | Episcopal Affiliation | 1077 | + + + | Race | Unknown | + + + | Ethnic Group | Unknown | + + + Author + + + | Author | [facility] | | | and [place] | + + + | Organization | [facility] | [...] [place] | | | | | [address] | | + + + + + | Arin Ulloa | ECON | Unknown | | + + + + + Care Team Providers + +------+ + | Care Java Portal Developer Name | Role | Phone | + +------+ + PCP | Unavailable | + +------+ + Encounter Details +--------+ + + + + | Date | Type | Department | Care Team | Description | +--------+ + + + + | 09/10/ | Hospital | [facility] | Aleida Marino, | | | 2005 | Encounter | FAMILY INTRA OP | MD [address] | | | | | [address] | [place] | | | | | [place] | [id number] | | | | | [address] | | | | | | [phone] | | | +--------+ + + + [...] | | | | | [place] | | | | | | [address] | | | | | | | [...] [id number] RECD: 09/10/2005 13:47 STATUS: SOUT | [facility] | | REQ NUM: | [facility] | | FARIHA: 09/10/2005 00:[address]: Aleida Marino ENTERED: | HOSPITAL | | 09/10/2005 13:48 SP TYPE: SURGICAL OT DR: TISSUES: | LABORATORY | | Rectum, [...] + + + | EMILIE CEBALLOS | [address] [facility] | [place] [address] | | | [facility] | | [...]
--- OUTSIDE RECORDS SUMMARY | ~2020-04-22 | XMS | Encounter Summary ---
Demographics + + + | Address | [address] | | | [place] [address] | + + + | Home Phone | | + + + | Preferred Language | Unknown | + + + | Marital Status | | + + + | Faith Affiliation | 1077 | + + + [...] [place] | | | | | [address] | | + + + + + | Arin Ulloa | ECON | Unknown | | + + + + + Care Team Providers + +------+ + | Care Vendor Representatives Name | Role | Phone | + +------+ + PCP | Unavailable | + +------+ + Encounter Details +--------+ + + + + | Date | Type | Department | Care Team | Description | +--------+ + + + + | 08/29/ | Hospital | [facility] | Derrek Darnell | | | 1999 | Encounter | DEBRA GENERIC | MD [address]ack [address] | | | | | CONVERSION | [address] | | | | | DEPARTMENT [address] | [place] [address] | | | | | [address] | [phone] | | | | | [place], [place] | | | | | | [address] | | | | | | [phone] | | | +--------+ + + + [...] | | | | | | [place] | | | | | | [address] | | | | | | | | +--------+---------+ + + + documented as of this encounter Visit Diagnoses Not on filedocumented in this encounter"
--- OUTSIDE RECORDS SUMMARY | ~2020-04-22 | XMS | Encounter Summary ---
Demographics + + + | Address | [address] | | | [place] [address] | + + + | Home Phone | | + + + | Preferred Language | Unknown | + + + | Marital Status | | + + + | Christian Affiliation | 1077 | + + + [...] [place] | | | | | [address] | | + + + + + | Arin Ulloa | ECON | Unknown | | + + + + + Care Team Providers + +------+ + | Care Sorter Laundry Articles Name | Role | Phone | + [...] Provider Unknown | | | | | [facility] [place] | [phone] | | | | | [address] | | | | | | [phone] | | | +--------+ + + + [...] | | | | | [place] | | | | | | [address] | | | | | | | | +--------+---------+ + + + documented as of this encounter Visit Diagnoses Not on filedocumented in this encounter"
--- OUTSIDE RECORDS SUMMARY | ~2020-04-22 | XMS | Encounter Summary ---
Demographics + + + | Address | [address] | | | [place] [address] | + + + | Home Phone [...] [place] | | | | | [address] | | + + + + + | Arin Ulloa | ECON | Unknown | | + + + + + Care Team Providers + +------+ + | Care Air Valve Repairer Name | Role | Phone | [...] | [facility] [place] | [phone] | | | | | [address] | | | | | | [phone] | | | +--------+ + + + [...] | | | | | [place] | | | | | | [address] | | | | | | | | +--------+---------+ + + + documented as of this encounter Visit Diagnoses Not on filedocumented in this encounter"
--- OUTSIDE RECORDS SUMMARY | ~2020-04-22 | XMS | Encounter Summary ---
Demographics + + + | Address | [address] | | | [place] [address] | + + + | Home Phone [...] [place] | | | | | [address] | | + + + + + | Arin Ulloa | ECON | Unknown | | + + + + + Care Team Providers + +------+ + | Care Environmental Analyst Name | Role | Phone | [...] + | 08/04/ | Office | [facility] | DevinAndrade, | Stable angina (HCC) | | 2019 | Visit | CARDIOLOGY [place] | MD Curtis ESPARZA | (Primary Dx); | | | | [address] | [place], [place] | Chronic systolic | | | | [address] | [address] | heart failure (HCC); | | | | [place] | | Essential | | | | [address] | | hypertension; | | | | [phone] | | Coronary artery | | | | | | disease of bypass | | | | | | graft of [place] | | | | | | heart [...] having increased fatigue lately. Last hospitalization in [facility] on 07 April 2018 secondary to non-ST elevation [place]. L eft heart catheterization showed severe three-vessel [...] 6.4 oz) | SpO2 96% | B MO 25.60 kg/m GENERAL APPEARANCE: Alert, oriented, cooperative, [...] sinus bradycardia with long first-degree AV block, ID interval of almost 400 ms. Last Echo: [...] Severe 3 vessel Coronary artery disease with STUDIO OPERATOR of RCA. STUDIO OPERATOR of RI. Patent RAM to LAD. Severe [...] [place] | | | | | | [address] | | | | | | | [...] Coronary artery disease of bypass graft of [place] heart with stable angina pectoris | | (HCC) | + + documented in this encounter
--- OUTSIDE RECORDS SUMMARY | ~2020-04-22 | XMS | Encounter Summary ---
Demographics + + + | Address | [address] | | | [place] [address] | + + + | Home Phone [...] [place] | | | | | [address] | | + + + + + | Arin Ulloa | ECON | Unknown | | + + + + + Care Team Providers + +------+ + | Care Relocation Associate Name | Role | Phone | + +------+ + | Fabricio Bah | PCP | | | MD | | | + +------+ + Reason for Visit +--------+--------+ + | Reason | Onset | Comments | | | Date | | +--------+--------+ + | LABS | 04/13/ | LAB ENTRY 02/05/2020, 03/21/2020 | | | 2020 | | +--------+--------+ + Encounter Details +--------+ + + + + | Date | Type | Department | Care Team | Description | +--------+ + + + + | 04/13/ | Telephone | [facility] | Andrade Hobbs, | LABS (LAB ENTRY | 2019 | | CARDIOLOGY [place] | [address] | 02/05/2020, 03/21/2020) | | | | [address] | [facility] [place] | | | | | [facility] [place] | [address] | | | | | [address] | | | | | | [phone] | | | +--------+ + + + [...] this encounter Miscellaneous Notes Telephone Encounter - Addi Nix Administrative Processor - 04/13/2020 8:56 AM PDTLAB: INT ERPATH COLLECTION DATE: 03/21/2020 COLLECTION TIME: 1300 ORDERING PROVIDER: HEBER CBC COMPONENT VALUE RANGE UNITS WBC 8.4 4.5-11.0 K/ul RBC 4.17 L 4.3-5.7 M/ul HEMOGLOBIN 13.8 13.5-18.0 G/dl HEMATOCRIT 41.9 41-50 % MCV 100.6 H 81-99 Fl RDW 14.1 10.5-15.0 % MCH 33 27-33 Pg MCHC 33 30-36 G/dL PLATELET COUNT 146 140-440 K/ul elep ирина Encounter - Addi Nix Administrative Processor - 04/13/2020 8:53 AM PDTLAB: INTERPATH COLLECTION DATE: 02/05/2020 COLLECTION TIME: 2130 ORDERING PROVIDER: LUCÍA COMPREHENSIVE METABOLIC PANEL COMPONENT VALUE RANGE UNITS SODIUM 136 132-143 Meq/L POTASSIUM 3.8 3.6-5.1 Meq/L CHLORIDE 101 95-112 Meq/L CARBON DIOXIDE 28 19-31 Meq/L ANION GAP 10.8 7-21 GLUCOSE 98 70-100 Mg/dL UREA NITROGEN 21 6-23 Mg/dL CREATININE, SRM 1.08 0.70-1.11 Mg/dL GFR ESTIMATE 65 Ml/min BUN/CREAT RTO 19.4 6.0-28.6 CALCIUM 9.0 8.6-10.3 Mg/dL AST (SGOT) 22 13-39 U/L ALT (SGPT) 16 7-62 U/L ALKALINE PHOS 73 31-130 U/L BILIRUBIN, TOTAL 0.8 0.0-1.2 Mg/dL PROTEIN 6.3 6.0-8.3 G/dL ALBUMIN 3.9 3.5-5.0 G/dL GLOBULIN 2.4 1.8-3.5 G/dL A/G RATIO 1.6 1.1-2.4 CBC COMPONENT VALUE RANGE UNITS WBC 7.9 4.5-11.0 K/ul RBC 4.49 4.3-5.7 M/ul HEMOGLOBIN 14.2 13.5-18.0 G/dl HEMATOCRIT 42.9 41-50 % MCV 95.5 81-99 Fl RDW 13.4 10.5-15.0 % MCH 32 27-33 Pg MCHC 33 30-36 G/dL PLATELET COUNT 145 140-440 K/ul docum ented in this encounter Plan of Treatment +--------+---------+ + + + | Date | Type | Specialty | Care Team | Description | +--------+---------+ + + + | 08/23/ | Office | Cardiology | Andrade Hobbs, | | 2019 | Visit | | MD Curtis ESPARZA | | | | | | [place] | | | | | | [id number] | | | | | | | | +--------+---------+ + + + documented as of this encounter Visit Diagnoses Not on filedocumented in this encounter"
--- OUTSIDE RECORDS SUMMARY | ~2020-04-22 | XMS | Encounter Summary ---
Demographics + + + | Address | [address] | | | [place] [address] | + + + | Home Phone [...] [place] | | | | | [address] | | + + + + + | Arin Ulloa | ECON | Unknown | | + + + + + Care Team Providers + +------+ + | Care Sealing And Canceling Machine Operator Name | Role | Phone | + +------+ + PCP | Unavailable | + +------+ + Encounter Details +--------+ + + + + | Date | Type | Department | Care Team | Description | +--------+ + + + + | 03/24/ | Hospital | [facility] | [facility] | | | 1999 | Encounter | [facility] | [address] [place] | | | | | GENERIC CONV DEPT | [address] [place], [place] | | | | | [address] | [address] | | | | | [place] | | | | | | [address] | | | | | | [phone] | | | +--------+ + + + [...] [place] | | | | | | [address] | | | | | | | | +--------+---------+ + + + documented as of this encounter Visit Diagnoses Not on filedocumented in this encounter"
--- OUTSIDE RECORDS SUMMARY | ~2020-04-22 | XMS | Encounter Summary ---
Demographics + + + | Address | [address] | | | [place] [address] | + + + | Home Phone [...] [place] | | | | | [address] | | + + + + + | Arin Ulloa | ECON | Unknown | | + + + + + Care Team Providers + +------+ + | Care Inspector Firearms Name | Role | Phone | + +------+ + | Fabricio Bah | PCP | | | MD | | | + +------+ + Reason for Visit + +--------+ + | Reason | Onset | Comments | | | Date | | + +--------+ + | Medication Refill | 07/20/ | | | | 2018 | | + +--------+ + Encounter Details +--------+--------+ + + + | Date | Type | Department | Care Team | Description | +--------+--------+ + + + | 07/20/ | Refill | [facility] | Andrade Hobbs, | Medication Refill | | 2018 | | CARDIOLOGY [place] | [address] | | | | | [address] | [facility] [place] | | | | | [place] | [address] | | | | | [address] | | | | | | [phone] | | | +--------+--------+ + + + [...] [place] | | | | | | [address] | | | | | | | | +--------+---------+ + + + documented as of this encounter Visit Diagnoses Not on filedocumented in this encounter"
--- OUTSIDE RECORDS SUMMARY | ~2020-04-22 | XMS | Encounter Summary ---
Demographics + + + | Address | [address] | | | [place] [address] | + + + | Home Phone [...] + + | Author | [facility] | | | and [place] | + + + | Organization | [facility] | | | [...] [place] | | | | | [address] | | + + + + + | Arin Ulloa | ECON | Unknown | | + + + + + Care Team Providers + +------+ + | Care Resource Teacher Name | Role | Phone | + +------+ + | Fabricio Bah | PCP | | | MD | | | + +------+ + Encounter Details +--------+ + + + + | Date | Type | Department | Care Team | Description | +--------+ + + + + | 03/25/ | Orders Only | [facility] | [place], | | | 2016 | | RHEUMATOLOGY [address] | [address] | | | | | [address] | [address] | | | | | [place], [place] | [place] [address] | | | | | [address] | [phone] | | | | | [phone] | | | +--------+ + + + [...] [place] | | | | | | [address] | | | | | | | [...] + + + + | Non- | 4.63 | 4.20 - 5.70 | [...]
[~2020-04-22 09:10] MED LIST changes: +ISOSORBIDE MONO60 MG PO; +MECLIZINE HCL12.5 MG PO; +METOPROLOL SUCC25 MG PO
--- NOTE | 2020-04-22 22:13 | EKG ---
[facility] [address] [facility] [place] [address] Signed Sinus rhythm with 1st degree AV block with frequent premature ventricular complexes in a pattern of bigeminy Septal infarct (cited on or before 07-APR-2018) Abnormal ECG When compared with ECG of 05-FEB-2020 21:30, Sinus rhythm has replaced Junctional rhythm Confirmed by BARBARA POMPA MD ([id number]) on 04/22/2020 10:13:26 PM Electronically Signed By: BARBARA POMPA MD 04/22/20 2213 PATIENT NAME: BAYRON ELLER Electrocardiogram DATE OF : 31 PHYSICIAN: BARBARA POMPA MD REPORT #: [id number] REPORT IS CONFIDENTIAL AND NOT TO BE RELEASED WITHOUT AUTHORIZATION
== END 2020-04-22 10:46 | disposition home or self-care (01) ==
LOC: ED 09:10
DX: S40.012A Contusion of left shoulder, initial encounter (principal); R00.8 Other abnormalities of heart beat; I10 Essential (primary) hypertension; Z79.899 Other long term (current) drug therapy; Z79.01 Long term (current) use of anticoagulants; W19.XXXA Unspecified fall, initial encounter
CPT/HCPCS: 71045; 73030; 93005; 93010; 99283-25

== ENCOUNTER 2020-09-25 10:44 | Emergency (ER) | payer MEDICARE, BC ==
[~2020-09-25] VITALS: Ht 177.8 cm; Wt 76.7 kg
[2020-09-25] MEDS ORDERED: CITALOPRAM HBR10 MG PO (11:43)
[2020-09-25] MEDS ORDERED: VITAMIN D3100 MCG PO (11:45)
--- NOTE | 2020-09-26 10:40 | NUR ---
CHW CONTACTED PATIENT - ISIDRO- [phone]. PER MESSAGE REQUESTED INFORMATION IN REGARDS TO PALLIATIVE CARE PROGRAM AND HOSPICE AT THE HOSPITAL. CHW CONTACTED GEOFF- STATED THE HOSPITAL DOES NOT PROVIDE THE SERVICES LISTED BUT WE HELP THOSE GET CONNECTED TO LOCAL RESOURCES. FIRST STEP WOULD BE TO CONTACT PCP- DR HARPER TO DISCUSS OPTIONS AVAILABLE. GEOFF STATED HER HAS AN APT TOMORROW WITH DR HARPER AND WILL DISCUSS OPTIONS. NO FURTHER FOLLOW UP NEEEDED.
== END 2020-09-25 17:15 | disposition left against medical advice (07) ==
LOC: ED 10:44
DX: K86.89 Other specified diseases of pancreas (principal); E80.6 Other disorders of bilirubin metabolism; R74.01 Elevation of levels of liver transaminase levels; I10 Essential (primary) hypertension; I25.2 Old myocardial infarction; Z79.899 Other long term (current) drug therapy; Z79.52 Long term (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 steroids; Z85.038 Personal history of other malignant neoplasm of large intestine
CPT/HCPCS: 36415; 71045; 74177; 80048; 80076; 81001; 82977; 83615; 83690; 85025; 99284-25

== ENCOUNTER 2020-10-16 14:00 | Inpatient (IN) | payer MEDICARE, BC ==
[~2020-10-16] VITALS: Ht 177.8 cm; Wt 73.1 kg
[~2020-10-16 14:00] MED LIST changes: +CITALOPRAM HBR10 MG PO; +VITAMIN D375 MCG PO
--- OUTSIDE RECORDS SUMMARY | 2020-10-16 14:02 | XMS ---
PreManage Notification: BAYRON ELLER Security Inpatient Services Rn Events No recent Security Events currently on file CRITERIA MET - [facility] - 2 Visits in 30 Days CARE PROVIDERS STANISLAW HARPER [facility] 09/26/2020-Current PHONE: [phone] Duane has no Care Guidelines for this patient. Ayse VISIT COUNT (12 MO.) [facility] and [address] TOTAL 5 NOTE: Visits indicate total known visits. ED/UCC VISIT TRACKING (12 MO.) 10/16/2020 14:01 [facility] TYPE: Emergency COMPLAINT: - WEAKNESS 10/03/2020 08:06 [facility] TYPE: Emergency DIAGNOSES: 26755. WEAKNESS, JAUNDICE, PANCREATIC MASS CONCERN . Other disorders of bilirubin metabolism . Other specified diseases of pancreas . Elevation of levels of liver transaminase levels 09/25/2020 10:45 [facility] TYPE: Emergency COMPLAINT: - WEAKNESS, ABD PAIN, POSSIBLE MEDICATION REACTION DIAGNOSES: - supervisor intermediates (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 steroids - Old myocardial infarction - Elevation of levels of liver transaminase levels - Other specified diseases of pancreas - Localized swelling, mass and lump, head - Essential (primary) hypertension - Personal history of other malignant neoplasm of large intestine - Other specified diseases of pancreas - Other disorders of bilirubin metabolism - Other watermelon inspector (current) drug therapy 04/22/2020 09:11 [facility] TYPE: Emergency COMPLAINT: - FALL, ARM PAIN DIAGNOSES: - Other abnormalities of heart beat - supervisor intermediates (current) use of anticoagulants - Essential (primary) hypertension - Unspecified fall, initial encounter - Contusion of left shoulder, initial encounter - Other watermelon inspector (current) drug therapy - Pain in left shoulder 02/05/2020 21:24 [facility] TYPE: Emergency COMPLAINT: - WEAKNESS DIAGNOSES: - Vestibular neuronitis, unspecified ear - Essential (primary) hypertension - Other fci (current) drug therapy - Weakness INPATIENT VISIT TRACKING (12 MO.) 10/03/2020 08:06 [facility] TYPE: General Medicine DIAGNOSES: . Other specified diseases of pancreas . Other disorders of bilirubin metabolism . Elevation of levels of liver transaminase levels . Unspecified jaundice [email or web address]
[2020-10-16] MEDS ORDERED: PANTOPRAZOLE SO20 MG PO (14:28)
[2020-10-16] MEDS ORDERED: TRAZODONE HCL50 MG PO (14:28)
--- NOTE | 2020-10-16 18:59 | NUR ---
PT TO MEDSUR VIA STRETCHER ASSISTED TO BED ORIENTED TO ROOM. FRESH H20 PROVIDED CALL LIGHT IN LAP. HERE FOR A SHORT TIME THEN LEAVES.
--- NOTE | 2020-10-16 19:05 | NUR ---
REPORT [facility]. PT COMPLAINED OF ROOM BEING COLD, TEMP 74, OFFERED WARM BLANKET. STATED RELIEF.
--- NOTE | 2020-10-16 19:30 | NUR ---
PT LYING IN BED. SHIFT REPORT RECIEVED BY RN. WHITE BOARD CLEARED. NO NEEDS AT THIS TIME. BED ALARM ON. CALL LIGHT IN REACH.
--- NOTE | 2020-10-16 20:30 | NUR ---
PT LYING IN BED. SCHEDULED MEDS GIVEN. VS STABLE. REPOSITIONED BPT IN BED. EDUCATION GIVEN ON THE USE OF CALL LIGHT. PT VERBALIZED UNDERSTANDING. CALL LIGHT IN REACH. BED ALARM. NO FURTHER NEEDS.
--- NOTE | 2020-10-16 22:20 | NUR ---
PT LYING IN BED. ASSESSMENT COMPLETE. GENERALIZED JAUNDICE. SOME REDNESS AND BLANCHABLE ON COCCYX. ALLEVYN INTACT. REPOSITIONED PT ON RIGHT SIDE. DENIES SOB. CALL LIGHT IN REACH.
--- NOTE | 2020-10-16 23:30 | NUR ---
PT LYING IN BED. 1P STANDBY TO THE BATHROOM WITH FWW. TOLERATED WELL. DENIES SOB. STOOL SAMPLE GIVEN TO LAB. LAB DID NOT TEST DUE TO IT BEING FORMED AND NOT LIQUID. REPOSITIONED PT ON THE LEFT SIDE. CALL LIGHT IN REACH. NO CHANGES ON GENERALIZED JAUNDICE.
--- NOTE | 2020-10-17 02:32 | NUR ---
PT LYING IN BED. EYES CLOSED. AWOKE TO VOICE. REPOSITIONED PT IN BED. RR WNL WITH UNLABORED BREATHING. VS STABLE. PT DENIES PAIN. SCHEDULED MEDS GIVEN. NO CHANGES ON GENERALIZED JAUNDICE. CALL LIGHT IN REACH. NO FURTHER NEEDS. BED ALARM ON.
--- NOTE | 2020-10-17 05:31 | NUR ---
1P STANDBY/FWW TO THE BATHROOM. TOLERATED WELL. NO SOB. SMALL BM NOTED SOFT AND NOT LIQUID. PT DENIES PAIN. NO CHANGES ON GENERALIZED JAUNDICE. ALLEYVN INTACT ON COCCYX. SMALL SCAB ON LEFT ELBOW. ALLEYVN INTACT. REPOSITIONED PT IN BED. LYING ON THE RIGHT SIDE. ASSESSMENT COMPLETE, SCHEDULED MEDS ADMINISTERED. I AND O'S DONE. CALL LIGHT IN REACH. NO FURTHER NEEDS.
--- NOTE | 2020-10-17 07:15 | NUR ---
BEDSIDE HANDOFF REPORT RECEIVED FROM ADOLESCENT PSYCHIATRIST RN. PT SLEEPING, LEFT UNDISTURBED.
--- NOTE | 2020-10-17 07:25 | EKG ---
[facility] [address] [place] [address] Signed Accelerated Junctional rhythm with retrograde conduction Low voltage QRS Nonspecific T wave abnormality Prolonged QT Abnormal ECG When compared with ECG of 22-APR-2020 09:24, Significant changes have occurred Confirmed by GIANLUCA WEBSTER MD ([id number]) on 10/17/2020 7:25:33 AM Electronically Signed By: GIANLUCA WEBSTER MD 10/17/20 0725 PATIENT NAME: MARY ELLERSabra GREENE Electrocardiogram DATE OF : 31 PHYSICIAN: GIANLUCA WEBSTER MD REPORT #: [id number] REPORT IS CONFIDENTIAL AND NOT TO BE RELEASED WITHOUT AUTHORIZATION
[2020-10-17] MEDS ORDERED: NITROGLYCERIN0.4 MG SL (08:15)
[2020-10-17] MEDS ORDERED: ZENPEP DR 25,01 EAC1 PO (08:16)
[2020-10-17] MEDS ORDERED: HYDROXYZINE HCL25 MG PO (08:17)
[2020-10-17] MEDS ORDERED: ISOSORBIDE MON120 MG PO (08:17)
[2020-10-17] MEDS ORDERED: ZOLPIDEM TARTRA10 MG PO (08:18)
[2020-10-17] MEDS ORDERED: CITALOPRAM HBR20 MG PO (08:18)
[2020-10-17] MEDS ORDERED: AZULFIDINE500 MG PO (08:18)
--- NOTE | 2020-10-17 08:40 | NUR ---
PT ASSISTED TO CHAIR, 1PA, WEAK BUT STEADY. PT ON 2L NC, 100% WEANED TO 1L, LUNG SOUNDS CLEAR. BOWEL TONES ACTIVE, DENIES NAUSEA, DENIES ABD PAIN. PT SKIN JUANDICED. BLE WITH 2+ EDEMA, 1+ EDEMA IN BILATERAL THIGHS AND GENERALIZED ASCITES IN ABD. D5 1/2 NS INFUSING AT 75ML/HR. MORNING MEDICATIONS ADMINISTERED BY FOUNDER & CEO WITH SUPERVISION. TELE # 9, SR, HR IN 80'S. PT DENIES OTHER NEEDS AT THIS TIME.
--- NOTE | 2020-10-17 10:00 | NUR ---
Pt lives with in a 1 story home. Daughters live in town and assist. Pt is very jaundiced. Points to his wrists and lets me know he doesn't want "anything" done and is a DNR. Pt does not plan on seeking treatment if his mass is cancerous. Discussed comfort care and daughter asked for info on [facility] and in home care. Pt states is not in very good shape. Pamphlets for [facility], [facility], and [facility] given. Plan is for pt to discharge to home with . Daughters will assist as needed. Pt does not want to consider an assisted living at this time.
--- NOTE | 2020-10-17 10:03 | NUR ---
CIVIL CELEBRANT helped Pt. washed face and hands. Got up to bathroom, then to chair. Pt. worked with PT. Bed linens changed. v/s and I&Os done and recorded. no other needs at this time. call light with in reach
--- NOTE | 2020-10-17 10:50 | NUR ---
PT SITTING IN CHAIR. PT REQUESTING TO BRUSH TEETH, O.T. TO ASSIST AND EVALUATE PT. PT PROVIDED WITH CLEAR ENSURE. PT DENIES OTHER NEEDS AT THIS TIME.
--- NOTE | 2020-10-17 10:59 | NUR ---
PT ALERT, ORIENTED AND SITTING IN CHAIR FACING WINDOW. HAD PLEASANT VISIT WITH PT, FEELS CARED FOR ALL QUESTIONS ANSWERED. PT REQUESTED PRAYER, WARM BLANKET AND LEFT G.POST WITH PT. WILL FOLLOW NEEDED
[2020-10-17] MEDS ORDERED: TYLENOL325 MG PO (11:04)
[2020-10-17] MEDS ORDERED: VENTOLIN HFA18 GM INH (11:05)
[2020-10-17] MEDS ORDERED: VITAMIN C500 M1 PO (11:06)
[2020-10-17] MEDS ORDERED: CULTURELLE1 EAC1 PO (11:07)
--- NOTE | 2020-10-17 11:12 | NUR ---
MED REC COMPLETE
--- NOTE | 2020-10-17 14:20 | NUR ---
Pt. in bed sleeping. v/s and I&Os done and recorded. no other needs at this time. call light with in reach
--- NOTE | 2020-10-17 14:30 | NUR ---
PT ON ROOM AIR, LUNG SOUNDS CLEAR. PT FATIGUED ATER MORNING ACTIVITIES. BOWEL TONES ACTIVE, DENIES NAUSEA, AND DENIES PAIN AFTER EATING CLEAR LIQUID LUNCH. EDEMA IN BLE 3+ AROUND ANKLES AND 2+ IN SHINS, 1+ IN THIGHS, CONTINUES TO HAVE ASCITES IN ABD. IV ZOSYN INFUSING. DAUGHTER AT BEDSIDE. PT DENIES OTHER NEEDS AT THIS TIME.
--- NOTE | 2020-10-17 15:43 | NUR ---
PT ASSISTED TO BATHROOM, VOIDED AND HAD SMALL SOFT BM, PT WITH BLOOD PER RECTUM, DR. WEBSTER NOTIFIED. DAUGHTER UPDATED ON PLAN OF CARE. PT DENIES OTHER NEEDS AT THIS TIME.
--- NOTE | 2020-10-17 17:39 | NUR ---
PT ASSISTED TO SIT UP IN CHAIR FOR DINNER, GIVEN CREON PER ORDER. PT DENIES OTHER NEEDS AT THIS TIME.
--- NOTE | 2020-10-17 18:17 | NUR ---
PT WEANED TO ROOM AIR, LUNG SOUNDS CLEAR. PT DENIES PAIN. PT RECEIVED ZOSYN AND NS AT 75ML/HR. PT WALKED IN DOAN WITH P.T., SBA WITH FWW. PT CLEARED FROM O.T. PT ADVANCED TO CLEAR LIQUID DIET, TOLERATING WELL, ENCOURAGE CLEAR ENSURE. PT WITH EDEMA TO BLE 3+ AROUND ANKLES, JASE HOSE IN PLACE. PT VOIDING QS, HAD 2 SMALL BM TODAY.
--- NOTE | 2020-10-17 19:00 | NUR ---
PT LYING IN BED. SHIFT REPORT RECIEVED BY RN. PT UP IN CHAIR. CALL LIGHT IN REACH. NO NEEDS AT THIS TIME
--- NOTE | 2020-10-17 19:29 | NUR ---
PT UP IN CHAIR. SHIFT REPORT RECIEVED BY RN. CALL LIGHT IN REACH. NO NEEDS AT THIS TIME.
--- NOTE | 2020-10-17 20:00 | NUR ---
ASSISTED PT FROM CHAIR TO THE BATHROOM. STANDBY/FWW. PT DENIES PAIN AND SOB. SOME REDNESS ON UPPER BACK. GENERALIZED JAUNDICE NOTED. +1 EDEMA ON BLE. +2 ON FEET. REPOSITIONED PT IN BED. LYING ON THE RIGHT SIDE. ASSESSMENT COMPLETE. I AND O'S DONE. VS STABLE. CALL LIGHT IN REAC. NO FURTHER NEEDS.
--- NOTE | 2020-10-17 23:03 | NUR ---
BED ALARM SOUNDING. PT STOOD AT SIDE OF BED WITH SBA TO VOID 75 ML CONCENTRATED URINE. PT BACK TO BED, CABRERA WELL. INCREASED RESPIRATIONS WITH ACTIVITY BUT PT RECOVERS AFTER REST. PT REQUESTING SOMETHING FOR SLEEP. CALLED. BED ALARM FOR SAFETY. CALL LIGHT IN REACH.
--- NOTE | 2020-10-17 23:09 | NUR ---
PT REQUESTED SLEEP MED. MD NOTIED AND TELEPHONE ORDER DONE FOR SLEEP MED, READ BACK METHOD COMPLETE.
--- NOTE | 2020-10-17 23:14 | NUR ---
[facility] SLEEP MED ADMINISTERED PER REQUEST. REPOSITIONED PT SUPINE. EDUCATED PT ON PREVENTION OF SKIN TEARS. PT VERBALIZED UNDERSTANDING. CALL LIGHT IN REACH.
--- NOTE | 2020-10-18 02:13 | NUR ---
PT LYING IN BED. RR WNL WITH UNLABORED BREATHING. SCHEDULED MEDS GIVEN. CALL LIGHT IN REACH. NO FURTHER NEEDS.
--- NOTE | 2020-10-18 03:52 | NUR ---
PT LYING IN BED. EYES CLOSED. RR WNL WITH UNLABORED BREATHING. CALL LIGHT IN REACH.
--- NOTE | 2020-10-18 04:35 | NUR ---
PT LYING IN BED. 1P/FWW TO THE BATHROOM. SMALL BM NOTED. PT HAS SOME REDNESS ON BUTTOCKS. BLANCHABLE. EDUCATION ON REPOSITIONING TO PREVENT ULCERS. PT VERBALIZED UNDERSTANDING. ALLEYVN INTACT ON COCCYX. CALL LIGHT IN REACH. NO FURTHER NEEDS.
--- NOTE | 2020-10-18 06:40 | NUR ---
PT LYING IN BED. STATED THAT HE WAS A LITTLE UPSET AND CONFUSED OF WHAT THE PLAN WAS TODAY. THERAPEUTIC COMMUNICATION GIVEN THAT FOR TODAY PT WILL BE SEEN BY THE DOCTOR, ANTIBIOTICS WILL BE GIVEN FOR INCREASED WBC AND HAVE A NUTRITIONAL CONSULT. PT VERBALIZED UNDERSTANDING. CALL LIGHT IN REACH. NO FURTHER CONCERNS.
--- NOTE | 2020-10-18 07:00 | NUR ---
BEDSIDE HANDOFF REPORT RECEIVED FROM SWIMMING COACH OR INSTRUCTOR RN. PT RESTING IN BED. PT DENIES NEEDS AT THIS TIME.
--- NOTE | 2020-10-18 08:15 | NUR ---
PT RESTING IN BED. PT ON ROOM AIR, LUNG SOUNDS COARSE WITH A FEW FINE CRACKLES IN THE LEFT LOWER LOBE, PT DENIES SOB. BOWEL TONES ACTIVE, DENIES NAUSEA OR ABD PAIN. PT WITH EDEMA, ASCITES/GENERALIZED IN ABD, 1-2+ IN BILAT THIGHS, 2+ IN BILAT SHINS AND 3+ IN BILAT ANKLES. PT CONTINUES TO APPEAR JAUNDICED, UNCHANGD FROM YESTERDAY. PT ASSISTED TO CHIAR FOR CLEAR LIQUID BREAKFAT. PT ALERT AND ORIENTED BUT DISCRIBED AN EVENT THIS MORNING THAT DID NOT OCCCURE, ANSWERS ALL ORIENTION QUESTIONS ACCURATELY. MORNING MEDICATIONS ADMINISTERED BY FINE PATCHER WITH SUPERVISION FROM THIS RN. PT DENIES OTHER NEEDS AT THIS TIME.
--- NOTE | 2020-10-18 10:30 | NUR ---
In to visit with patient and his spouse regarding his care in this facility, along with questions or concerns at this time. Pt states that he is very happy with his care, stating "It has been wonderful." adds, "We spent two weeks in [place] in a hospital, it was frightening. So nice to be here where he is getting good care." Patient feels like his pain is well controlled, his call light is being answered in a timely manner, and his complimented the staff on how clean his room was, and how "clean the nurses are keeping him."
--- NOTE | 2020-10-18 11:06 | NUR ---
v/s and I&Os done and recorded. BALLISTICS TESTER assisted pt. to bathroom and back to chair. no other needs at that time. call light within reach
--- NOTE | 2020-10-18 11:26 | NUR ---
DR. WEBSTER TO BEDSIDE, PLAN TO ADVANCE DIET, CONTNIUE IV ABX AND IV FLUIDS, DC TELE. FIELD START TO LEFT AC DISCONTINUED.
--- NOTE | 2020-10-18 13:24 | NUR ---
PT NOT ALERT YESTERDAY. SITTING UP IN BED, JEREL PRESENT AND VERY ATTENTIVE.PT SOMEWHAT SLOWER TO RESPOND, BUT ON POINT. IV ALARM GOING OFF, PT REQUESTED PRAYER. GAVE BOTH ENCOURAGEMENT,SERGEY RODRIGUES IN TO CARE FOR PT. WILL FOLLOW NEEDED
--- NOTE | 2020-10-18 14:43 | NUR ---
PT RESTING IN BED. PT ASSISTED TO BATHROOM, VOIDED. LUNG SOUNDS CLEAR, DENIES SOB. TOLERATED SOFT/BITE SIZED LUNCH. PT EDEMA SLIGHTLY WORSENING, 3+ IN LOWER LEGS JUST ABOVE ANKLES, 2+ IN SHINS. IV ZOSYN INFUSING PER ORDER. PT DENIES OTHER NEED AT THIS TIME.
--- NOTE | 2020-10-18 15:45 | NUR ---
PT ASSISTED TO CHAIR, ASSISTED TO ORDER DINNER AND BREAKFAST. PT DENIES OTHER NEEDS AT THIS TIME.
--- NOTE | 2020-10-18 17:53 | NUR ---
v/s and I&Os done and recorded. no other needs at this time. call light within reach
--- NOTE | 2020-10-18 21:00 | NUR ---
IN TO GET PT UP TO VOID, THEN BACK TO BED, VITALS TAKEN AT THIS TIME, NO FURTHER NEEDS
--- NOTE | 2020-10-18 21:06 | NUR ---
Awakes easily, On room air, coop with assessment, lunbgs dim at bases, abd distended, ascitic. edema more prominent on R side, Jaundiced, bruising of arms, healing. coop. Up to br with 1PA, voided and had smear of bm, no c/o pain, coop, Back to bed, tolerated well. sl LW patent, Follows instructions Hearing aids in place, tolerating liquids well, uses call light, edema of le, elevated. Coxxyx area Allevyn dressing intact
--- NOTE | 2020-10-18 22:46 | NUR ---
PT AWOKEN AT THE SIDE OF THE BED, CONFUSION ABOUT LOCATION, ABLE TO REDIRICT PT, PT STATES THIS HAPPENS TO HIS POST SURGERY BEFORE, BOOSTED IN BED, NO FURTHER NEEDS AT THIS TIME, BED ALARM RESET
--- NOTE | 2020-10-18 22:49 | NUR ---
IN pt ROOM TO ASSIST WITH REPOSITIONING pt. pt ABLE TO MOVE SELF HIGHER IN BED INDEPENDTLY INSTRUCTED. PILLOWS POSITIONED FOR COMFORT. CALL LIGHT IN REACH.
--- NOTE | 2020-10-18 23:08 | NUR ---
PT TURNED LIGHT, SLIGHTLY CONFESED TO WHERE HE WAS, REORIENTED. WENT BACK TO SLEEP, BED ALARM ON.
--- NOTE | 2020-10-19 02:23 | NUR ---
tURNED AND REPOSIONED WITH HELP IN BED, DISORIENTED TO PLACE, COOP, REORIENTED, CABRERA SIPS OF FLUIDS. USES CALL LIGHT
--- NOTE | 2020-10-19 03:19 | NUR ---
Used call light, up to br,1PA voiding orange-yellow urine. QS, back to bed, slight sob on return noted. Very jaundiced skin, ascitin abd and R flank. tolerating sips of fluids, no emesis, no c/o pain. Allevyn to buttocks area and Left elbow. present. coop. HOB elevated to comfort
--- NOTE | 2020-10-19 04:57 | NUR ---
HAS SLEPT MOST OF THIS SHIFT. ONROOM AIR. JAUNDICED SKIN, ASCITIC ABD, R FLANK AND LE. VOIDING QS, SL LW IN PLACE. NO ADVERSE REACTIO TO ABX. NO C/O PAIN. ALLEVYN DRESSING TO BUTTOCKS AND L ELBOW, TOLERATING SIPS OF FLUIDS. USES CALL LIGHT
--- NOTE | 2020-10-19 06:20 | NUR ---
IN TO GET VITALS, NO FURTHER NEEDS AT THIS TIME
--- NOTE | 2020-10-19 06:32 | NUR ---
awakes easily, on room air, sl intact, cooperative, confused to place, easily reoriented, bed alarm on
--- NOTE | 2020-10-19 07:04 | NUR ---
IN TO ASST PT UP TO VOID, SBA FWW TO TOILET, THEN BACK TO BED, NO FURTHER NEEDS AT THIS TIME, BED ALARM IS SET
--- NOTE | 2020-10-19 07:47 | NUR ---
0717; Report received from Delmy RINCON. Pt sleeping, bed alarm remains on.
--- NOTE | 2020-10-19 07:49 | NUR ---
DR WEBSTER AWARE OF WBC.
--- NOTE | 2020-10-19 08:34 | NUR ---
MD AWARE OF LAB VALUES. PT RESTING IN HIS BED AND DENIES PAIN OR NEEDS AT THIS TIME. CALL SERRANO WITHIN REACH. PT DRINING AN ENSURE AT THIS TIME AND DECLINES TO GET UP TO THE CHAIR. WILL CONTINUE TO MONITOR.
--- NOTE | 2020-10-19 09:10 | NUR ---
Assisted pt to the bathroom with use a his walker. He needs cueing. Rn notified he is on the toilet with his calllight.
--- NOTE | 2020-10-19 09:39 | NUR ---
PATIENT UP IN RECLINER. STATES HE DOES NOT FEEL WELL. DOES NOT FEEL LIKE EATING BREAKFAST. TOOK A COUPLE SIPS OF ENSURE CLEAR BUT DOES NOT WANT FOOD. HE ATE DINNER LAST NIGHT ON A SOFT DIET. CURRENT DIET IS SOFT AND BITE SIZED. NO SODIUM OR FAT RESTRICTION IN PLACE AT THIS TIME WITH HOPES OF OPTIMIZING PO INTAKE. NA+ STILL REMAINS LOW, T. BILI IMPROVING. ENCOURAGED PATIENT TO TRY TO EAT SOLID FOOD TODAY IF HE FEELS LIKE HE CAN. IT WILL TAKE SOME TIME FOR HIS APPETITE TO RETURN. CONTINUE ENSURES OR ENSURE CLEARS TO DRINK THROUGHOUT THE DAY. WILL CONTINUE TO MONITOR.
--- NOTE | 2020-10-19 10:30 | NUR ---
Returned to room and spoke with pts . Discussed I had spoken with her daughter and they thought it best if eDep return home on discharge. does not feel that will be possible. She does not feel she will be able to care for him at home. We discussed SNFs in [facility] and surrounding area. She is not interested in [facility] and thinks they would prefer [place]. Brochures given for [facility] in [place], [facility], [facility] and [facility] in [place]. I will send the chart to [facility] as this seems to be her preferred choice, it is difficult to tell.
--- NOTE | 2020-10-19 11:23 | NUR ---
PATIENT UP IN CHAIR AND RESTING QUIETLY. APPEARS ASLEEP. CALL LIGHT WITHIN REACH. NOTE COMPLETED BY [facility] STUDENT NURSE.
--- NOTE | 2020-10-19 11:25 | NUR ---
PT'S JEREL CME OUT KOF RM, FEELING THAT PT WAS IS SOME DISTRESS. I COULD TELL BY THE LOOK ON HER DREW OF HER CONCERN. GAVE COMFORT AND HAD DOWELING MACHINE OPERATOR YVETTE IN TO VISIT WITH HER AND CARE FOR PT. WILL CONTINUE TO FOLLOW
--- NOTE | 2020-10-19 12:32 | NUR ---
PATIENT SITTING UP IN HIS CHAIR. CHANGED BED LINENS.
--- NOTE | 2020-10-19 12:43 | NUR ---
PT SLEEPING, AWAKES TO VOICE, ANSWERS QUESTIONS AND FALLS RIGHT BACK TO SLEEP. PT DENIES ANY PROBLEMS OR NEEDS AT THIS TIME, CALL SERRANO WITHIN REACH. SEE ASSESSMENT.
--- NOTE | 2020-10-19 14:24 | NUR ---
NEW ANTIBIOTIC BAG HUNG. PATIENT RESTING QUIETLY IN CHAIR. CALL LIGHT WITHIN REACH. STATES NO NEEDS AT THIS TIME. NOTE COMPLETED BY FOSTER ALDANA [facility] STUDENT NURSE.
--- NOTE | 2020-10-19 14:31 | NUR ---
Pt repositioned in his chair at this time.
--- NOTE | 2020-10-19 15:38 | NUR ---
Pt resting in his chair and is visiting with his . Deep denies any pain or needs at this time.
--- NOTE | 2020-10-19 15:59 | NUR ---
WHILE PHYSICAL THERAPY WAS WALKING WITH PATIENT I WAS FOLLOWING BEHIND WITH A WHEELCHAIR. PATIENT DID TWO LAPS AROUND MED SURG. ORDERED HIS DINNER AND BREAKFAST.
--- NOTE | 2020-10-19 17:04 | NUR ---
PT REPOSITIONED AND BARRIER CREAM APPLIED TO HIS JOSH-AREA. PT DENIES ANY PROBLEMS AT THIS TIME. PT WAS FOUND BY THE PRODUCT STEWARD UP IN HIS ROOM WITHOUT HELP AND WITHOUT HIS WALKER. PT NOW HAS A BED ALARM TURN ON. PT STILL ORIENTED TO PERSON, PLACE AND TIME BUT IS FORGETFUL.
--- NOTE | 2020-10-19 17:10 | NUR ---
PT EATING DINNER AT THIS TIME WITH HELP FROM THE SUPERVISOR MAINTENANCE AND CUSTODIANS.
--- NOTE | 2020-10-19 17:26 | NUR ---
URINE SENT TO THE LAB ORDERED AT THIS TIME.
--- NOTE | 2020-10-19 18:13 | NUR ---
PT RESTING IN HIS BED AND HE STATES HE IS COMFORTABLE AND DENIES ANY NEEDS AT THIS TIME. CALL SERRANO WITHIN REACH AND BED ALARM IS ON.
--- NOTE | 2020-10-19 20:09 | NUR ---
ASSISTED PT TO RESTROOM SBA WITH FWW AND BACK TO BED. HE DENIES FURTHER NEEDS AT THIS TIME. CALL LIGHT IS CLOSE AND BED ALARM IS ON.
--- NOTE | 2020-10-19 20:39 | NUR ---
pt awake, no c/o pain. coop with assessment, on room air. sl diana LW. fragile dry, scaly, jaundiced skin. abd large ascitic, more towards right flank than left. voiding qs. Tolerating diet and fluids well, protein shakes encourages. turns self in bed. dry scaly skin. allevyn dressings to l elbow and coccyx area. legs elevate.
--- NOTE | 2020-10-19 22:10 | NUR ---
Dr Day notified of pts iv leaking and unable to restart second IV at this time and pt on Zosyn abx. "Pt needs his IV abx, keep trying and if unable to restart than please do a PICC line nurse consult for pt to be seen in am"
--- NOTE | 2020-10-19 22:55 | NUR ---
Able to restart IV R wrist after 3-4 tries and 3 different RN's. Zosyn infusing at this time. Procedure explained, cooperative, drowsy. jaindiced skin and sclera. coop.
--- NOTE | 2020-10-19 23:14 | NUR ---
IN TO ASST PT UP TO THE TOILET FOR VOID, PT GETTING UP WITHOUT CALLING, NOW BACK IN BED AT THIS TIME, BED ALARM IS SET
--- NOTE | 2020-10-20 03:13 | NUR ---
PT UP TO BR, VOIDED LARGE AMOUNT OF YELLOW URINE, HAD SMALL AMOUNT OF BM HARD, ROUND, BROWN, WITH SMALL AMOUNT OF PINK-RED FIBERS LIKE AT END, PT HAS RECTAL HEMORRHOIDS. NO FURTHER NOTED. SLEARA AND SKIN JAUNDICED, ASCITIC ABD. EDEMA W/O CHANGES. MUCH IMPROVED JAINDECED SKIN. MUCH IMPROVED GAIT. BACK TO BED
--- NOTE | 2020-10-20 04:02 | NUR ---
RESATING, NO DISTRESS, CALL LIGHT AT HANDS REACH.NO RESP DISTRESS
--- NOTE | 2020-10-20 04:51 | NUR ---
Pt has slept, uses call light, on room air, no distress 1pa/ to br. voiding QS. had smear of bm. jaundiced sclera and all over skin, much improved facial and frontal upper chest. ABD very ascitis, edema R flank, thights and feet. Coop. [place], pleasant and coop. Tolerating fluids well, no c/o pain
--- NOTE | 2020-10-20 05:42 | NUR ---
IN TO GET VITALS, PT UP TO VOID, LAB IN TO DRAW, NO FURTHER NEEDS
--- NOTE | 2020-10-20 05:46 | NUR ---
Up to br, voided, back to bed, 1PA, coop with labs
--- NOTE | 2020-10-20 07:35 | NUR ---
0709: Report received from Delmy RINCON. Pt receiving his echo at this time per lieutenant shift supervisor.
--- NOTE | 2020-10-20 08:16 | NUR ---
PT SLEEPING, AWAKES TO VOICE AND ANSWERS QUESTIONS, DENIES ANY PROBLEMS AND FELL RIGHT BACK TO SLEEP. PER REPORT HE SLEPT WELL LAST NIGHT. CALL SERRANO WITHIN REACH AND BED ALARM IS TURNED ON.
--- NOTE | 2020-10-20 09:45 | NUR ---
Pt resting with eye closed. Not awakened. Remains jaundiced.
--- NOTE | 2020-10-20 09:55 | NUR ---
PT ATE ALL OF HIS OATMEAL FOR BREAKFAST THIS MORNING ALONG WITH A FEW SIPS OF CHOCOLATE ENSURE. PT WOULD PREFER A DIFFERENT FLAVOR OF ENSURE. HIS SAID THAT PT MAY DO BETTER WITH A STRAWBERRY MILKSHAKE. WILL HAVE BEND UP BRING A STRAWBERRY ENSURE MILKSHAKE FOR LUNCH FOR PT TO TRY. CURRENT DIET IS A SOFT & BITE SIZE TEXTURE. WILL CONTINUE TO ENCOURAGE INTAKE.
--- NOTE | 2020-10-20 09:56 | NUR ---
VO: FROM DR POMPA TO STOP THE ZOSYN THAT WAS INFUSING AND TO START THE ORDERED CEFEPIME. THIS WAS DONE AT THIS TIME. PT RESTING IN HIS BED AND IS VISITING WITH HIS .
--- NOTE | 2020-10-20 10:15 | NUR ---
1 VILE OF URINE IN DOUBLE BAG/LABEL SENT TO LAB, PER SERGEY SAMUELS.
--- NOTE | 2020-10-20 10:53 | NUR ---
Lab called and confirmed that they received the urine that was sent at 1010.
--- NOTE | 2020-10-20 11:45 | NUR ---
PT RECEIVING HIS ORDERED CHEST X-RAY AT THIS TIME. LAB JUST YENY ORDERED PT.
--- NOTE | 2020-10-20 13:02 | NUR ---
Picc line ordered, Picc RN aware.
--- NOTE | 2020-10-20 13:10 | NUR ---
PT ATE ABOUT 60% OF HIS LUNCH AND 100% OF HIS BREAKFAST TODAY. HE DENIES ANY PROBLEMS AND STATES THAT HE IS FEELING BETTER AND GETTING STRONGER, IT "IS EASIER TO GET UP TO GO TO THE BATHROOM". ASSESSMENT COMPLETED WITH NO NEW PROBLEMS NOTED AT THIS TIME. PT IS AWAITING HIS PICC LINE PLACEMENT AT THIS TIME.
--- NOTE | 2020-10-20 14:24 | NUR ---
Pt just finished working with physical therapy and is now receiving a mid-line in his room.
--- NOTE | 2020-10-20 16:50 | NUR ---
MIDLINE PLACEMENT NOTE THE PT WAS EXAMINED BY BOTH TAZ PRICE RN AND MYSELF DURING THE ENTIRE PROCESS. WAS ASKED TO PLACE A MIDLINE FOR APPROXIMATELY 2 WEEKS OF IV ABX AND THE PT HAS LIMITED VEINS. THE LEFT ARM WAS EXAMINED FIRST BY TAZ PRICE RN. SHE ATTEMPTED TO ACCESS THE BASILIC VEIN WITHOUT SUCCESS. THIS RN THEN ATTEMPTED TO ACCESS THE LEFT BRACHIAL VEIN WITHOUT SUCCESS. WE STOPPED AT THIS POINT AND TOOK DOWN THE STERILE DRAP AND CLEARED OUR STERILE FIELD TO GIVE THE PT A BREAK. UPON RETURNING TAZ PRICE RN EXAMINED HIS RIGHT ARM WITH THIS RN AT THE BEDSIDE. TAZ PRICE RN ATTEMPTED TO ACCESS THE BASILIC VEIN ON THIS ARM WITHOUT SUCCESS. THIS RN WAS ABLE TO ACCESS THE BRACHIAL VEIN ON THE RIGHT ARM. THE GUIDEWIRE, INTRODUCER, AND MIDLINE ALL ADVANCED EASILY UP THE VEIN. RED, NONPULSITILE BLOOD RETURNED ON THE IV ACCESS AND ONCE THE INTRODUCER WAS PLACED. THE MIDLINE DRAWS BLOOD AND FLUSHES EASILY. PT REPORTS NO PAIN AT THE INSERTION SITE OR WHEN FLUSHING. ARVIND KWAN RN GIVEN REPORT. THE PT IS SITTING UP IN BED WITH THE BED RAILS UP X2. CALL LIGHT PROVIDED.
--- NOTE | 2020-10-20 17:13 | NUR ---
Pt eating dinner at this time, call redd within reach and bed alarm is on. Pt denies any pain or problems.
--- NOTE | 2020-10-20 18:37 | NUR ---
PT SLEEPING, CALL SERRANO WITHIN REACH AND BED ALARM IS ON.
--- NOTE | 2020-10-20 19:47 | NUR ---
PATIENT RESTING QUIETLY IN BED, BUT AWAKE. PATIENT INFORMED THIS NURSE HE IS READY FOR HIS EVENING MEDS AND TO GO TO SLEEP. WILL BE BACK WITH MEDS SHORTLY AND CALL LIGHT IS IN REACH.
--- NOTE | 2020-10-20 20:29 | NUR ---
PT CALLED FOR ASSISTANCE TO RESTROOM. SBA WITH FWW TO RESTROOM AND BACK TO BED. PT DENIES FURTHER NEEDS AT THIS TIME. CALL LIGHT IS CLOSE.
--- NOTE | 2020-10-20 21:00 | NUR ---
PATIENT DENIES ANY PAIN, ICE WATER REFILLED, PATIENT HAS EXTRA COVERS, READY TO GO TO BED, EVENING MEDS GIVEN, PATIENT HAVING NO DIFFICULTY BREATHING, IN SEMI-FOWLERS POSITION, CALL LIGHT IN REACH.
--- NOTE | 2020-10-20 22:51 | NUR ---
in to asst pt up to void, then back to bed, no further needs at this time
--- NOTE | 2020-10-20 23:34 | NUR ---
PATIENT RESTING QUIETLY, EYES CLOSED, RESPIRATIONS REGULAR AND EVEN, CALL LIGHT IN REACH, BED ALARM ON.
--- NOTE | 2020-10-21 01:12 | NUR ---
PATIENT RESTING QUIETLY, EYES CLOSED, RESPIRATIONS REGULAR AND EVEN, IN SEMI-FOWLERS POSITION, CALL LIGHT IN REACH.
--- NOTE | 2020-10-21 02:42 | NUR ---
IN TO ASST PT UP TO THE TOILET, THEN BACK TO BED, NO FURTHER NEEDS AT THIS TIME
--- NOTE | 2020-10-21 03:46 | NUR ---
PATIENT RESTING QUIETLY, EYES CLOSED, RESPIRATIONS REGULAR AND EVEN, BED ALARM ON, CALL LIGHT IN REACH.
--- NOTE | 2020-10-21 05:49 | NUR ---
IN TO ASST PT TO TOILET, SBA FWW, PT VOIDED AND HAD SM BM, DAILY WEIGHT TAKEN, VITALS TAKEN, ICE ADDED TO WATER, NO FURTHER NEEDS AT THIS TIME
--- NOTE | 2020-10-21 06:27 | NUR ---
PATIENT HAS SLEPT WELL DURING THE NIGHT EXCEPT HAVING TO GO TO THE BATHROOM. URINE OUTPUT HAS BEEN GREAT, PATIENT DOWN OVER 3KG FROM YESTERDAYS WEIGHT. PATIENT RESTING IN BED AT THIS TIME WITH NO CURRENT NEEDS.
--- NOTE | 2020-10-21 07:20 | NUR ---
REPORT RECEIVED FROM SERGEY PAGAN. PT RESTING IN BED. PT REPORTS DISCOMFORT IN LEFT GOMEZ STATING "THEY NEVER TAKE OFF THOSE COMPRESSION THINGS." COMPRESSION STOCKINGS REMOVED FOR A BRIEF BREAK. PT UNABLE TO RATE PAIN, STATES "IT'S NOT VERY MUCH." PT REPORTS IMPROVEMENT WITH COMPRESSION STOCKING REMOVAL. BREAKFAST ORDER PLACED. NO ADDITIONAL REQUESTS OR COMPLAINTS AT THIS TIME. CALL LIGHT WITHIN REACH. BED RAILS UP.
--- NOTE | 2020-10-21 07:35 | NUR ---
MORNING ASSESSMENT AND MEDICATION DUE. THIS RN TO BEDSIDE. PT RESTING WITH EYES CLOSED. MILD SNORING NOTED. PT AWAKENS TO VOICE AND MOVEMENT IN ROOM. PT DENIES PAIN AND NAUSEA STATING "THAT PAIN IN MY LEG IS ALL GONE. i JUST NEEDED A BREAK FROM THOSE STOCKING THINGS." PT ALLOWED CONTINUED BREAK FROM COMPRESSION STOCKINGS. PT REQUESTS A SHOWER AFTER BREAKFAST, WILL REAPPLY COMPRESSION STOCKINGS AFTER SHOWER. STAND BY ASSIST UP TO CHAIR. PT ABLE TO SIT HIMSELF UP TO THE EDGE OF THE BED INDEPENDANTLY. ASSESSMENT DONE: PT ORIENTED TO ALL. GENERALIZED WEAKNESS NOTED. PT STATES "I DON'T KNOW IF I'M STRONG ENOUGH TO SHOWER. PT ASSURED THAT A SHOWER CHAIR AND ASSISTANCE WILL BE PROVIDED. 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 UNABLE TO IDENTIFY TOE THAT IS TOUCHED. JAUNDICE NOTED THROUGHOUT SKIN, PALMS OF HANDS AND WHITES OF EYES. PEERLA NOTED. FINE CRACKELS NOTED IN BASES OF BILATERAL LUNG LOBES. I.S. USE DEMONSTRATED REACHING 800ML. O2 95%ON ROOM AIR. PT REPORTS MINIMAL APPITITE WITH BREAKFAST. ALLEVYN TO LEFT ELBOW LOOSE, REMOVED. SKIN TEAR NOTED UNDER ALLEVYN MEASURING 2CM X1CM, SCAB NOTED. MINIMAL RED DRAINAGE ON OLD DRESSING. NO SWELLING NOTED. SKIN AROUND WOUND BRUISED AND REDDENED. NEW ALLEVYN APPLIED. PT RESTING IN CHAIR, POSITIONED TO BE ABLE TO SEE OUTSIDE PER REQUEST. CHAIR ALARM ON. CALL LIGHT WITHIN REACH. NO ADDIITONAL REQUESTS OR COMPLAINTS AT THIS TIME.
--- NOTE | 2020-10-21 10:34 | NUR ---
PATIENT AND IN ROOM, PATIENT UN IN CHAIR FACING WINDOW. DAUGHER ON HILLSIDE OUTSIDE PATIENTS WINDOW FOR CONVERSATION. DAUGHTER AND PATIENT EMOTIONAL, DAUGHTER HAS BEEN IN [place]OWN FOR 3 WEEKS AND HAS ONLY SEEN PATIENT 1 TIME. THIS INTEGRATED LOGISTICS PROGRAMS DIRECTOR OFFERED PERSONAL IPHONE FOR A FACETIME CONVERSATION, PATIENT DECLINED. CALL LIGHT IN REACH, NO OTHER NEEDS AT THIS TIME
--- NOTE | 2020-10-21 10:47 | NUR ---
NEW MEDICATIONS ORDERED. PT REMAINS UP TO CHAIR, VISITING WITH . PT REPORTS HE WAS ABLE TO TALK TO HIS DAUGHTER ON THE PHONE. PT DENIES PAIN AND NAUSEA AT THIS TIME. IV STARTED FOR ALBUMIN ADMINISTRATION IV ABX WILL BE ANOTHER FEW HOURS. PT VERBALIZES UNDERSTANDING OF PROCEDURE AND STATES HE IS OK WITH IV START. SEE MAR FOR MEDICATIONS GIVEN. PT DENIES ADDITIONAL REQUESTS OR COMPLAINTS STATING HE WOULD LIKE TO SHOWER SOON. CODING QUALITY ANALYST NOTIFIED. CALL LIGHT WITHIN REACH. AT BEDSIDE, CHAIR ALARM ON.
--- NOTE | 2020-10-21 11:00 | NUR ---
ASSISTED PHYSICAL THERAPY TO GET PT UP TO BSC. SKIN ASSESS COMPLETED. ALLEVYN TO COCCYX UNCHAGED AND INTACT. MID-BACK ALLEVYN REMOVED. WOUND SCABBING OVER AND REDDENED.
--- NOTE | 2020-10-21 12:30 | NUR ---
THIS RN TO ROOM TO CHECK ON PT. MEDICATION DUE. PT REPORTS "I DON'T REALLY NEED THOSE PILLS BECAUSE I'M NOT GOING TO EAT LUNCH." PT HAS MINIMAL APPITITE. PT AGREES TO DRINK VANILLA ENSURE. ENSURE PROVIDED. MEDICATION GIVEN (SEE MAR). PT EDUCATION DONE REGARDING REASON FOR MEDICATION, PT AND VERBALIZE UNDERSTANDING. IV ABX INFUSION COMPLETE, LINE FLUSHED AND HEPARIN LOCKED PER PROTOCOL. ALCOHOL CAP APPLIED. IV TO LEFT UPPER ARM SALINE LOCKED WELL, ALCOHOL CAP APPLIED. PT UP WITH INDUSTRY SEGMENT SPECIALIST FOR SHOWER. JANUDCE CONTINUES TO BE EVIDENT. PT DENIES PAIN AND NASUEA BUT REPORTS "MY STOMACH REALLY BOTHERS ME, I FEEL SO BLOATED." PT REPORTS ABDOMINAL DISTENTION HAS BEEN WORSENING SINCE DISCHARGE FROM [facility]. NO ADDITIONAL REQUESTS OR COMPLAINTS AT THIS TIME. INDUSTRY SEGMENT SPECIALIST WORKING WITH PT FOR SHOWER. CALL BENJAMIN NIXON.
--- NOTE | 2020-10-21 13:20 | NUR ---
ASSISTED PATIENT INTO SHOWER. PATIENT WAS ABLE TO HELP WITH SHOWER TASKS. THIS METAL CASKET MAKER SHAVED PATIENTS FACE. PATIENT BACK TO BED, WARM BLANKET PROVIDED. VITALS AND I&OS CHARTED. ENSURE AND HEARING AIDS AT BEDSIDE. CALL LIGHT ON PATIENTS LAP. OUT OF ROOM WHILE PATIENT NAPS.
--- NOTE | 2020-10-21 13:46 | NUR ---
AFTERNOON ASSESSMENT DUE. PT BACK TO BED AFTER SHOWER. RESTING WITH EYES CLOSED AND HEAD OF BED ELEVATED TO 35 DEGREES. PERIODS OF APNEA AND LOUD SNORING NOTED. PT NOTED TO AWAKEN TO BREATH AT TIMES AFTER WHICH THE APNEA AND SNORING CYCLE REPEATS. PT AWAKENS TO VOICE AND LIGHT TOUCH. PT DENIES HISTORY OF SLEEP APNEA. ASSESSMENT DONE: PT DENIES PAIN AND NAUSEA BUT STATES HIS ABDOMEN CONTINUES TO "FEEL TOO FULL." PT ORIENTED TO ALL BUT OCCATIONALLY FORGETFUL. PT REPORTS BASELINE NEUROPATHY IN FEET. MINIMAL FINE CRACKELS CONTINUE IN BASES OF LUNGS. I.S. USE DEMONSTRATES REACHING 750ML. +2 PITTING EDEMA NOTED TO BILATERAL LOWER EXTREMITIES AND FEET. COMPRESSION STOCKINGS SUGGESTED TO PT AND PT STATES "THE DOCTOR SAID I DON'T NEED THEM." STOCKINGS REMAIN OFF AT THIS TIME. LEGS ELEVATED IN BED. ABDOMINAL ACITIES CONTINUES. JAUNDICE OF SKIN, HANDS AND EYES CONTINUES UNCHANGED. ALLEVYN TO LEFT ELBOW AND COCCYX REMAIN C/D/I. NO ADDITIONAL SKIN CONCENRS NOTED. PT ASSISTED WITH DRINKING VANILLA ENSURE. NO ADDITIONAL REQEUSTS AT THIS TIME. CALL LIGHT IN HAND. BED ALARM ON. BED RAILS UP.
--- NOTE | 2020-10-21 15:06 | NUR ---
THIS RN TO ROOM TO CHECK ON PT. PT RESTING IN BED WITH EYES CLOSED. PERIODS OF APNEA FOLLOWED BY ABRUPT SNORING NOTED. O2 SATURATION 94% ON ROOM AIR. HEAD OF BED ELEVATED TO 35 DEGREES. BED RAILSUP. BED ALARM ON. CALL LIGHT IN PTS RIGHT HAND.
--- NOTE | 2020-10-21 17:04 | NUR ---
MEDICATION DUE. THIS RN TO ROOM TO CHECK ON PT. PT RESTING IN BED WITH EYES CLOSED, RESPIRATIONS EVEN AND UNLABORED WITH EHAD OF BED AT 45 DEGREES. PT AWAKENS TO VOICE. PT DENIES PAIN AND NAUSEA AND STATES "GOOD MORNING! i'M FEELING BETTER." WHEN ASKED PT STATES HIS ABDOMEN IS FEELING BETTER. PT HAS FINISHED A FULL BOTTLE OF ENSURE. PT DECLINES DINNER, ADDIITONAL ENSURE PROVIDED. MEDICATION GIVEN (SEE MAR). PT TELLS STORIES ABOUT HIS CHILDREN AND GRANDCHILDREN STATING "YOU KNOW YOURE OLD WHEN YOUR CHILDREN ARE ALL RETIRED." PT DENIES ADDIITONAL REQUESTS OR COMPLAINTS. CALL LIGHT WITHIN REACH. BED ALARM ON. BED RAILS UP.
--- NOTE | 2020-10-21 18:04 | NUR ---
THIS RN TO ROOM TO CHECK ON PT. PT DENIES PAIN AND NAUSEA. PT DECLINES DINNER. ENSURE PROVIDED. PT TAKES A FEW SIPS. VITALS SIGNS STABLE. PT VOIDING QUANTITY SUFFICIENT. NO ADDITIONAL REQUESTS OR COMPLAINTS. CALL LIGHT WITHIN REACH. BED RAILS UP. BED ALARM ON.
--- NOTE | 2020-10-21 18:06 | NUR ---
PT HERE FOR WEAKNESS AND SEPSIS. PT UP TO CHAIR THIS SHIFT WITH 1 PERSON ASSIST AND FRONT WHEEL WALKER. PT TOLERATING SOFT DIET WITH VERY MINIMAL APPITTIE, ENSURE PROVIDED WITH GOOD RESULTS. FLUID RESTRICITON DC'D. FINE CRACKELS NOTED IN LOWER LOBES, I.S. USE ENSURED. JAUNDICE CONTINUES IN SKIN, HANDS AND WHITES OF EYES. PT TAKING PROTEASE/LIPASE WITH MEALS/ENSURE. MONITORING KIDNEY AND LIVER FUNCTION LABS CLOSELY. IV ALBUMIN GIVEN THIS SHIFT. MID LINE TO RIGHT UPPER ARM WNL, HEPARIN LOCKED. ALLEVYN TO COCCYX AND LEFT ELBOW CHANGED, C/D/I, HEALING APPROPRIATLY. DAILY WEIGHT ORDERS. PT IS VOIDING QUANTITY SUFFICIENT. PT USES CALL LIGHT APPROPRIATLY.
--- NOTE | 2020-10-21 19:00 | NUR ---
RECEIVED REPORT FROM SERGEY VASQUEZ. pt RESTING IN BED WITH EYES CLOSED, RESPIRATIONS NOTED. CALL LIGHT WITHIN REACH.
--- NOTE | 2020-10-21 20:19 | NUR ---
CALL LIGHT ON. pt UP SBA FWW TO VOID AND BACK TO BED. PM CARES DONE. ASSESSMENT DONE. pt DENIES PAIN AND SOB. MEDICATION GIVEN (SEE MAR). VITALS AND I&O RECORDED. pt REPORTED HE FELT "BLOATED" BUT OVERALL IS FEELING "BETTER. PROVIDED FRESH WATER. NO FURTHER REQUESTS AT THIS TIME. CALL LIGHT WITHIN REACH.
--- NOTE | 2020-10-21 22:00 | NUR ---
CALL LIGHT ON. pt UP TO VOID SBA FWW, BACK TO BED. CALL LIGHT WITHIN REACH.
--- NOTE | 2020-10-22 02:13 | NUR ---
CALL LIGHT ON. pt UP TO VOID, SBA FWW. REPORTED "THAT WAS THE LONGEST NIGHT." DENIES BEING ABLE TO SLEEP. UNABLE TO THINK OF ANYTHING THAT WILL HELP WITH SLEEP. ASSESSMENT DONE. UNCHANGED FROM PRIOR ASSESSMENT. SETTLED IN BED. CALL LIGHT WITHIN REACH.
--- NOTE | 2020-10-22 03:56 | NUR ---
CALL LIGHT ON. pt REPORTED "I FEEL LIKE MY BLOOD SUGAR MIGHT BE LOW." IN IMMEDIATELY TO ASSESS pt REPORTED FEELING "SWEATY" BLOOD SUGAR LOW, PROVIDED ORANGE JUICE AND CRACKERS WILL RECHECK PER PROTOCOL. CALL LIGHT WITHIN REACH.
--- NOTE | 2020-10-22 06:09 | NUR ---
LAB IN TO DRAW. pt RESTING IN BED. REPORTED "I DIDN'T SLEEP AT ALL" pt UP TO VOID. STANDING WEIGHT TAKEN. DISCUSSED WEIGHT LOSS. pt BACK TO BED SBA FWW. VITALS RECORDED. NO REQUESTS AT THIS TIME. CALL LIGHT WITHIN REACH.
--- NOTE | 2020-10-22 08:02 | NUR ---
REPORT RECIEVED FROM SERGEY SANDOVAL. PT RESTING WITH EYES CLOSED. REPORTEDLY DID NOT SLEEP AT ALL LAST NIGHT.
--- NOTE | 2020-10-22 08:38 | NUR ---
PT SITTING UP IN CHAIR WITH BREAKFAST IN FRONT OF HIM. STATES THAT HE DOESN'T HAVE AN APPETITE IN FACT THE SMELL IS MAKING HIM NAUSEOUS. DID NOT SLEEP LAST AND IS TIRED THIS MORNING. MIDLINE FLUSHES WELL AND HOOKED TO CEFEPIME.
--- NOTE | 2020-10-22 11:04 | NUR ---
PT WALKED IN DOAN WITH GUARD RANGE. STATES SHE TIRED HIM OUT. IN ROOM. FIXED BEEPING PUMP. PT RESTING IN CHAIR WITH EYES CLOSED.
--- NOTE | 2020-10-22 13:10 | NUR ---
PT ABLE TO EAT A SMALL PORTION OF HIS SANDWHICH. HE STATED IT ATLEAST TASTED GOOD. GIVEN SCHEDULED MEDS. PT'S PLATE PREPARER CAME IN AND PRAYED WITH HIM AND HIS . PT BACK TO BED FOR HOPEFULLY A NAP. DENIES CONCERNS.
--- NOTE | 2020-10-22 13:29 | NUR ---
AB FINISHED. HL THE MIDLINE.
--- NOTE | 2020-10-22 14:00 | NUR ---
THIS NURSE TAKING OVER CARES. REPROT RECEIVED. PT IN BED NAPPING. RESPIRATIONS EQUAL AND NONLABORED. CALL LIGHT IN REACH
--- NOTE | 2020-10-22 17:44 | NUR ---
PT UP TO CHAIR FOR DINNER. MEDICAITIONS GIVEN. DENEIS NEEDS.
--- NOTE | 2020-10-22 19:00 | NUR ---
RECEIVED REPORT FROM SERGEY MOTT. pt RESTING IN BED WITH EYES CLOSED, RESPIRATIONS NOTED. CALL LIGHT WITHIN REACH.
--- NOTE | 2020-10-22 21:59 | NUR ---
V/S AND I&O DONE. PATIENT GOT UP TO USE THE BATHROOM. SBA USING WALKER. PATIENT IS BACK IN BED. PRIMARY RN WAS WITH PATIENT.
--- NOTE | 2020-10-22 22:00 | NUR ---
IN TO DO ASSESSMENT AND MEDICATIONS. pt WOKE TO VOICE. UP TO VOID SBA FWW. BACK TO BED. ASSESSMENT DONE. pt REPORTED "MY STOMACH FEELS A LOT BETTER TODAY." DENIES PAIN AT THIS TIME. MIDLINE WNL, NO BLOOD RETURN NOTED. VITALS AND I&O RECORDED. MEDICATIONS GIVEN (SEE MAR). LIGHTS OFF PER REQUEST. CALL LIGHT WITHIN REACH.
--- NOTE | 2020-10-23 03:43 | NUR ---
CALL LIGHT ANSWERED. PATIENT WAS UP TO THE BATHROOM. SBA USING WALKER. PATIENT IS BACK IN BED. WARM BLANKETS PROVIDED. CALL LIGHT IN REACH. NO OTHER NEEDS AT THIS TIME.
--- NOTE | 2020-10-23 03:44 | NUR ---
pt UP TO VOID SBA, BACK TO BED. pt REPORTED "I GOT SOME SLEEP, I'D LIKE TO GET SOME MORE" ASSESSMENT DONE. NO CHANGES. PROVIDED WARM BLANKETS. CALL LIGHT WITHIN REACH.
--- NOTE | 2020-10-23 06:26 | NUR ---
LAB DRAW COMPLETED BY HUMAN SERVICES CASE MANAGER. pt UP TO VOID SBA FWW. WEIGHT DONE. BACK TO BED. MEDICATIONS GIVEN (SEE MAR). NO FURTHER REQUESTS AT THIS TIME. CALL LIGHT WITHIN REACH.
--- NOTE | 2020-10-23 08:04 | NUR ---
PT SLEEPING AT TIME OF SHIFT EXCHANGE. AWAKE NOW BREAKFAST ORDERED. PT DENIES DISCOMFORTS OR NEEDS.
--- NOTE | 2020-10-23 09:03 | NUR ---
PATIENT TO BATHROOM AND THEN TO CHAIR WITH RN, 1PA. LINENS CHNAGED. PATIENT REFUSED WASH CLOTH THIS MORNING. VITALS AND I&O'S CHARTED. PT IN TO WORK WITH PATIENT. CALL LIGHT IN REACH. NO FURTHER NEEDS AT THIS TIME.
--- NOTE | 2020-10-23 10:32 | NUR ---
During my patient rounding today I was able to meet with Mr. Ulloa and his daughter. Mr. Ulloa states that he is "very happy" with his care, stating "I couldn't ask for better care." His daughter is an agreement with his assessent of his care while here in the hospital. He states that he has "no complaints" and compliments the staff on the care he has received, the cleanliness of his room, along with his personal care. Daughter also expresses no concerns at this time.
--- NOTE | 2020-10-23 10:39 | NUR ---
DAUGHTER PRESENT IN THE ROOM DR POMPA IN TO SEE PT. ALL QUESTIONS ANSWERED AND PLAN GOING FORWARD DISCUSSED. PT UP WITH P/T LEDA, WELL TOLERATED. UP IN THE CHAIR AT THIS TIME ENCOURAGED TO DRINK ENSURE. OBSERVED COCCYX UNDER ALLEVYN NO REDNESS OR TROUBLE AREAS OBSERVED. ALLEYVN TO LEFT ELBOW CHANGED DRY SCAB IN THAT AREA LESS THAN 1 CM ROUND.
--- NOTE | 2020-10-23 11:20 | NUR ---
Spoke with pt and daughter. Pt states, feeling depressed and wished everything would just get over. Asked if there is anything we can do to help. Daughter requests I check if pt is still taking his antidepressant and he is. Pt declines coloring books, crossword puzzles, or word searches. Asked if a wc ride to look out the windows might help. Pt perks up to this and states he'll sneak out if he gets near the front of the hospital. Pt is better spirits and laughing. Spoke with RN and she is agreeable to assist pt to go on wc ride. Daughter concerned as she felt mom was upset when I discussed a SNF with her. I updated I sent 4 brochures with her as she had stated she does not feel she can take Deep home and care for him. Daughter states she thinks they will take him home. I requested they let me know their plan when they decide and I will be happy to assist.
--- NOTE | 2020-10-23 12:21 | NUR ---
PT TOLERATES 1/4 SANDWICH FOR NOON MEAL, WORKING ON AN ENSURE. DAUGHTER LEAVES FOR A TIME. PT RESTING EYES CLOSED.
--- NOTE | 2020-10-23 12:52 | NUR ---
PT SITTING IN CHAIR, VISITING WITH DAUGHTER. PT PLEASANT, HAS HABIT OF TALKING WITH EYES CLOSED. PT IS CHILLED, GOT WARM BLANKET. PT REQUESTED PRAYER, WILL FOLLOW
--- NOTE | 2020-10-23 13:57 | NUR ---
PT CONTINUES UP IN THE CHAIR AT THIS TIME. USES CALL LIGHT APPROPRIATELY FOR TOILEING AND REQUESTS.
--- NOTE | 2020-10-23 14:07 | NUR ---
PATIENT UP TO BATHROOM AND BACK TO BED, SBA FWW. VITALS AND I&O'S CHARTED. CALL LIGHT IN REACH. NO FURTHER NEEDS AT THIS TIME.
--- NOTE | 2020-10-23 15:48 | NUR ---
Called and spoke with Sadia Avalos as I have not heard from them about the chart I faxed on Friday. Spoke with Ariane and she was unable to find the chart, chart refaxed.
--- NOTE | 2020-10-23 16:39 | NUR ---
pt continues up in the chair, daughter has gone home. no c/o pain or nausea this entire shift. pt has managed 2 ensures and 2 small meals. he is talkative and appears upbeat.
--- NOTE | 2020-10-23 17:44 | NUR ---
PATIENT UP TO BATHROOM THEN TO BED, SBA FWW. PATIENT DID ORAL CARE AT SINK. WARM BLANKETS GIVEN. VITALS AND I&O'S CHARTED. CALL LIGHT IN REACH. NO FURTHER NEEDS AT THIS TIME.
--- NOTE | 2020-10-23 19:00 | NUR ---
RECEIVED REPORT FROM SERGEY BLANCHARD.
--- NOTE | 2020-10-23 19:50 | NUR ---
SBA FROM BATHROOM BACK TO BED. V/S AND I&O DONE AND CHARTED. WARM BLANKETS PROVIDED.
--- NOTE | 2020-10-23 19:51 | NUR ---
CHARGE REPORT RECEIVED FROM [facility]. NO NEEDS AT THIS TIME.
--- NOTE | 2020-10-23 20:00 | NUR ---
ROUNDED ON pt. RESTING IN BED AWAKE. pt UP TO VOID, SBA FWW. BACK TO BED. ASSESSMENT DONE. PROVIDED WARM BLANKETS. pt MORE TALKATIVE THAN EARLIER IN WEEK. MADE A COUPLE JOKES. FINISHED ENSURE. MEDICATIONS GIVEN (SEE MAR). CALL LIGHT IN HAND. LIGHTS OUT PER REQUEST.
--- NOTE | 2020-10-24 01:06 | NUR ---
CALL LIGHT ANSWERED. SBA TO THE BATHROOM AND BACK TO BED. NO OTHER NEEDS AT THIS TIME.
--- NOTE | 2020-10-24 05:40 | NUR ---
CALL LIGHT ON. pt REQUESTED TO GET UP TO VOID. SBA FWW. DAILY WEIGHT, VITALS, AND I&O RECORDED TO [facility]. pt REPORTED "I DID NOT SLEEP AT ALL LAST NIGHT." pt DID NOT KNOW WHY HE WASN'T SLEEPING OR WHAT COULD BE DONE TO HELP HIM. WARM BLANKETS PROVIDED. ASSESSMENT UNCHANGED. MORNING MEDICATIONS GIVEN (SEE MAR). LAB COMPLETED DRAW. CALL LIGHT IN HAND.
--- NOTE | 2020-10-24 07:15 | NUR ---
REPORT RECEIVED FROM SERGEY SANDOVAL. PT RESTING IN BED WITH HEAD OF BED ELEVATED TO 30 DEGREES. PT AWAKE AND DENIES PAIN AND NAUSEA AT THIS TIME. PT STATES HE HAS NO REQUESTS OR COMPLAINTS AT THIS TIME. BED RAILS UP. CALL BENJAMIN NIXON.
--- NOTE | 2020-10-24 08:19 | NUR ---
Pt. resting in bed. Face and hands washed. no other needs at this time. call light with in reach
--- NOTE | 2020-10-24 09:13 | NUR ---
MORNING ASSESSMENT AND MEDICATIONS DUE. PT UP IN ROOM WITH PASSENGER BARGE MASTER TO RESTROOM. STAND BY ASSIST WITH FRON WHEEL WALKER. PASSENGER BARGE MASTER REPORTS PT HAD SMALL BOWEL MOVMENT. JOSH CARE DONE. NO REDNESS NOTED ON COCCYX. SKIN INTACT. ALLEVYN REAPPLIED PER PT REQUEST FOR PADDING. MID LINE ASSESSED, WNL, FLUSHES EASILY. NO PAIN, REDNESS OR SWELLING NOTED. CORNER OF DRESSING STARTING TO COME LOOSE. WILL DO DRESSING CHANGE AFTER PT FINISHED BREAKFAST. IV ABX STARTED (SEE NOV). JAUNDICE CONTINUES THROUGHOUT SKIN, PLAMS OF HANDS AND WHITES OF EYES, APPEARS IMPROVED SINCE THIS RN'S LAST ASSESSMENT. +2 PITTING EDEMA CONTINUES TO BILATARAL LOWER EXTREMITIES UP TO MID CALF. MILD ACITIES NOTED, IMPROVING. PT REPORTS IMPROVING APPITITE TODAY, ABLE TO EAT 90% OF HIS CREAM OF WHEAT WITH CRAZINS. PT ALSO DRINKING ENSURE, NEAR 100% COMPLETE. PT STATES "I'M PROUD OF MYSELF FOR EATING" AND STATES "FOOD ACTUALLY TASTES GOOD TODAY." 2CM X1CM SKIN TEAR TO LEFT EBLOW REMAINS WELL INTACT, SCAB NOTED, AND HEALING. NO DRESSING IN PLACE A THIS TIME. PT DEMONSTRATES USE OF I.S. REACHING 800ML. NO ADDITIONAL REQUESTS OR COMPLAINTS. CALL LIGHT WITHIN REACH. CHAIR ALARM ON.
--- NOTE | 2020-10-24 09:40 | NUR ---
Spoke with Deep. He remains in better humor today. States he tried to get his daughter to help him escape yesterday, but they were caught. Again stating he really wants to go home. we discussed he just needs to finish his IV antibiotics. He states understanding, he has been hospitalized 19 out of 21 days with a 1 days stay at home. He denies needs.
--- NOTE | 2020-10-24 09:50 | NUR ---
THIS RN TO ROOM TO CHECK ON PT. PT UP TO AMBULATE WITH PHYSICAL THERAPY. PT DENIES PAIN AND NAUSEA. PTS ARRIVED, UPDATED AND VERBALIZES UNDERSTANDING OF PLAN OF CARE. NO ADDIITONAL REQUESTS OR COMPLAINTS.
--- NOTE | 2020-10-24 10:58 | NUR ---
THIS RN TO ROOM WITH MD FOR ROUNDS. PT DENIES PAIN AND NAUSEA AT THIS TIME. PT FINISHED WITH FIRST BOTTLE OF ENSURE THIS SHIFT. ADDITIONAL BOTTLE PROVIDED. MD UPDATED ON PTS WHITE TONGUE, STATES THIS IS COATING FROM THE ENSURE, NO THROAT PAIN OR DISCOLORATION NOTED. PT DENIES ADDITIONAL REQUESTS OR COMPLAINTS AT THIS TIME. CALL LIGHT WITHIN REACH. CHAIR ALARM ON. AT BEDSIDE.
--- NOTE | 2020-10-24 12:18 | NUR ---
THIS NURSE TO BEDSIDE TO ADMINSTER MEDICATIONS. PT UP IN CHAIR. ATE 50% OF LUNCH. NOW FINISHING ENSURE. AT BEDSIDE. CALL LIGHT IN REACH.
--- NOTE | 2020-10-24 12:56 | NUR ---
THIS RN TO ROOM TO CHECK ON PT. PT RESTING WITH EYES CLOSED. PT WAS ABLE TO EAT 50% OF LUNCH. ENSURE REMAINS AT BEDSIDE. PT ALLOWED TO REST. WILL WAKE PT SHORTLY SO HE DOES NOT SLEEP ALL DAY (PER MD VERBAL ORDER). CALL LIGHT WITHIN REACH. PT EASILY VEIWED FROM NURSES STATION. CHAIR ALARM ON.
--- NOTE | 2020-10-24 13:24 | NUR ---
WAS IN PATIENT'S ROOM AFTER HE WORKED WITH PT THIS MORNING AROUND 10:00. HE ATE MOST OF HIS CREAM OF WHEAT WITH A FEW RAISINS. HE IS DRINKING VANILLA HIGH PROTEIN ENSURE (DOES NOT LIKE CHOCOLATE). EACH HP ENSURE HAS 160 CALORIES, 2 GM FAT, AND 16 GM OF PROTEIN. HE IS ON A LOW-FAT DIET DUE TO PANCREATITIS. HIS APPETITE HAS IMPROVED YESTERDAY AND TODAY, THOUGH HE IS NOT EATING QUITE ENOUGH CALORIES TO MEET HIS NEEDS. USING HIS UBW OF 154 LBS (70 KG), HIS ESTIMATED CALORIE NEEDS ARE: [id number] (25-30 STEFAN/KG) ESTIMATED PROTEIN NEEDS ARE: 70-84 GM (1.0-1.2 GM/KG) ANTICIPATE IMPROVED CALORIE/PROTEIN INTAKE OVER THE NEXT [address] CAL[address] COUNT IN PLACE. WILL CONTINUE TO WORK WITH PATIENT TO ASSIST WITH FOOD CHOICES ON LOW-FAT DIET.
--- NOTE | 2020-10-24 13:47 | NUR ---
PT SITTING UP IN CHAIR. ABX COMPLETED. MIDLINE HEP LOCKED.
--- NOTE | 2020-10-24 14:28 | NUR ---
PT ALERT, ORIENTED AND SITTING IN CHAIR, FINISHING AN ENSURE. PT MORE VIBRANT TODAY, PLEASANT TIME OF VISITING. NO COMPLAINTS OR NEEDS. PT REQUESTED PRAYER WILL FOLLOW
--- NOTE | 2020-10-24 14:54 | NUR ---
Pt. has called appropriately to use the rest room a couple times today. Has been on a couple walks with PT. pt. up in chair. is in room with him. no other needs at this time. call light is with in reach
--- NOTE | 2020-10-24 14:57 | NUR ---
AFTERNOON ASSESSMENT DUE. PT UP TO CHAIR RESTING AFTER 2ND PHYSICAL THERAPY TIME. KENA, FROM PHYSICAL THERAPY STATES PT IS STEADY ON FEET WITH CANE AND IS WELCOME TO BEGIN USING CANE FOR AMBULATION AT THIS TIME. PT DENIES PAIN AND NAUSEA AND STATES HE IS FEELING "BETTER" TODAY AND "I'M GOING TO GO HOME!" PT EXCITED ABOUT THE PROGRESS HE IS MAKING TODAY INCLUDING "I AM EATING AND WALKING BETTER." ASSESSMENT DONE: LUNG SOUNDS CLEAR. +2 PITTING EDEMA NOTED TO BILATERAL LOWER EXTREMITIES AND FEET. EDEMA GOES ONLY TO MID THIGH AT THIS TIME. ABDOMINA SOFT, ACITIES CONTINUES BUT IMPROVIED. PT REPORTS HIS ABDOMEN FEELS LESS SWOLLEN. PT REPORTS FEELING CONSTIPATED STATING "I TRIED TO GO TWICE AND IT IS JUST STUCK." WILL CONSULT MD REGARDING POSSIBLE MEDICATIONS RELATED TO PTS RECENT STOMACH ISSUES. FOOD BEVERAGE SUPERVISOR REPORTS BOWEL MOVEMENT THIS MORNING WAS "ONLY A SMALL PEBBLE." JAUNDICE CONTINUES, MOST NOTABLE NOW IN CHEST AND ABDOMEN SKIN, AND PALSM OF HANDS. COLORING MUCH IMPROVED IN FACE, EYES AND ARMS. SKIN TEAR TO LEFT ELBOW OPEN TO AIR, SCAB NOTED, HEALING WELL. ALLEVYN REMAINS OVER COCCYX PER PT REQUEST. PTS TO BEDSIDE. DINNER ORDER PLACED. NO ADDIITONAL REQUESTS OR COMPLAINTS AT THIS TIME. CALL LIGHT WITHIN REACH. CHAIR ALARM ON. AT BEDSIDE.
--- NOTE | 2020-10-24 16:33 | NUR ---
THIS RN TO ROOM TO CHECK ON PT. MEDICAITON DUE. PT VISITING WITH EXPRESSING HOW GREATFUL HE IS FOR THE CARE HE HAS RECEIVED. PT DENIES PAIN AND NAUSEA. MEDICAITONS GIVEN (SEE MAR). PT DENIES ADDITIONAL REQUESTS OR COMPLAINTS. CALL LIGHT WITHIN REACH. PTS GOING HOME FOR THE NIGHT. CHAIR ALARM ON. PT EASILY VIEWED FROM THE NURSES STATION.
--- NOTE | 2020-10-24 17:26 | NUR ---
PT HERE FRO SEPISI RELATED TO CHOLANGITIS. 1PA WITH FRONT WHEEL WALKER UP TO WALK WITH PHYSICAL THERAPY X2 THIS SHIFT. PT CLEARED FOR WALKING WITH HIS CANE ONLY. PT REPORTS FEELING MORE STEADY ON HIS FEET TODAY. APPITITE MUCH IMPROVED THIS SHIFT. PT EATING 90% OF MEALS AND ENSURE X4 THIS SHIFT. PT HAS DENIED PAIN AND NAUSEA THROUGHOUT SHIFT. PT REMAINS ON CALORIE COUNT. PT REPORTING CONSTIPATION THIS SHIFT, NEW MEDICATIONS ORDERED. IV ABX CONTINUE. LUNG SOUNDS NOW CLEAR. JAUNDICE IMPROVING. PITTING EDEMA TO LOWER EXTREMITIES CONTINUES. COCCYX EXAMINED, NO REDDNES NOTED BUT ALLEVYN REMAINS IN PLACE PER PT REQUEST. WOUND TO LEFT ELBOW HEALING, SCAB IN PLACE, OPEN TO AIR AT THIS TIME. PT VOIDING QUANTITY SUFFICIENT. PT USES CALL LIGHT APPROPRIATLY.
--- NOTE | 2020-10-24 17:33 | NUR ---
CALLED AND UPDATED ON PTS REPORTS OF CONSTIPATION. STATES OK TO ORDER NIO MIRALAX AND SENNA. ORDERS PLACED.
--- NOTE | 2020-10-24 18:02 | NUR ---
PT CALL LIGHT ON. PT REQUESTS WARM BLANKETS, PROVIDED REQUESTED. PT CONTINEUS TO SIP ON ENSURE MILKSHAKE. PT DENIES ADDITONAL REQUESTS OR COMPLAINTS. CALL LIGHT IN PTS HAND. PT REMAINS UP TO CHAIR. PT EASILY VIEWED FROM NURSES STATION.
--- NOTE | 2020-10-24 19:03 | NUR ---
CHARGE NURSE REPORT RECEIVED FROM [facility]. PT WITH NO NEEDS AT THIS TIME.
--- NOTE | 2020-10-24 19:09 | NUR ---
RECEIVE REPORT FROM SERGEY VASQUEZ. pt RESTING IN BED WITH EYES CLOSED, RESPIRATIONS REGULAR AND UNLABORED. WHITEBOARD UPDATED.
--- NOTE | 2020-10-24 21:00 | NUR ---
IN TO DO MEDS AND ASSESSMENT. pt RESTING IN BED AWAKE. DISCUSSED DAY AND CHANGES IN MEDICATIONS. ASSESSMENT DONE. pt DENIED PAIN AT THIS TIME. VITALS DONE. pt WILL CALL WHEN READY TO VOID. DRANK A WHOLE CUP OF APPLE JUICE WITH MIRALAX. NO NAUSEA. CALL LIGHT IN HAND.
--- NOTE | 2020-10-24 21:56 | NUR ---
ROUNDED ON pt. RESTING IN BED, SNORNING. CALL LIGHT WITHIN REACH.
--- NOTE | 2020-10-25 03:27 | NUR ---
CALL LIGHT ON. pt REPORTED "I SLEPT REALLY WELL." UP TO VOID SBA WITH CANE. BACK TO BED. NO CHANGES ON ASSESSMENT. WARM BLANKETS PROVIDED. CALL LIGHT WITHIN REACH.
--- NOTE | 2020-10-25 06:09 | NUR ---
LAB COMPLETED DRAW. pt AWAKE IN BED. STATED "I DIDN'T SLEEP AT ALL AFTER I GOT UP AT 3AM." UP TO VOID, SBA WITH CANE. WEIGHT DONE. BACK TO BED. VITALS AND I&O RECORDED. MORNING MEDS GIVEN (SEE MAR). CHATTED FOR A BIT. NO REQUESTS AT THIS TIME. CALL LIGHT WITHIN REACH.
--- NOTE | 2020-10-25 07:11 | NUR ---
REPORT RECEIVED FROM SERGEY SANDOVAL. PT RESTING IN BED. PT REPORTS HE SLEPT WELL LAST NIGHT. PT DENIES PAIN AND NAUSEA AND IS ANTICIPATING BREAKFAST. NO ADDITIONAL REQUESTS OR COMPLAINTS AT THIS TIME. CALL LIGHT WITHIN REACH.
--- NOTE | 2020-10-25 08:31 | NUR ---
MORNING ASSESSMENT AND MEDICATION DUE. PT SITTING IN BED FINISHING BREAKFAST. HEAD OF BED ELEVATED TO 35 DEGREES. PT DENIES PAIN AND NAUSEA. PT ABLE TO EAT 90% OF BREAKFAST, CONTINUES TO REPORT APPITITE HAS IMPROVED. PT REQUESTS ASSISTANCE UP TO RESTROOM. STAND BY ASSIST WITH CANE UP TO RESTROOM. PT VOIDS 300ML CONCENTRATED YELLOW URINE WITHOUT ISSUE. PT CONTINUES TO REPORT THAT HE "JUST CAN'T GET IT OUT" REFERING TO HIS BOWEL MOVEMENTS. SMALL GOLF BALL SIZE SOFT STOOL NOTED TO BE STUCK IN ANAL SPHINTER. REMOVED WITH GLOVES, JOSH CARE DONE. STAND BY ASSIST UP TO CHAIR. PT ASSURED THAT HE WILL RECEIVE MEDICATIN FOR CONSTIPATION (SEE MAR FOR MEDICAITON GIVEN). ASSESSMENT DONE: MID LINE ASSESSED, WNL, BLOOD RETURN NOTED WITH ARM IN RAISED POSITION. IV ABX STARTED THROUGH MID LINE (SEE MAR). IV TO LEFT UPPER ARM, WNL, SALINE LOCKED. +2 PITTING EDEMA CONTINUES TO BILATERAL LOWER LEGS, EDMA CONTINUES TO MID CALF. GENERAZLIED EDEMA NOTED IN HANDS AND ABDOMEN, IMPROVING. PT CONTINUES TO REPORT NEUROPATHY PER BASELINE, UNCHANGED. MINIMAL CRACKELS NOTED IN LOWER LOWBS OF LUNGS, DO NOT CLEAR WITH COUGH. JAUNDICE IMPROVING, LESS NOTICIABLE IN FACE, ARMS AND PALMS OF HANDS CONTINUES IN LEGS ABDOMEN AND WHITES OF EYES. 2CM BY 1CM OLD SKIN TEAR TO LEFT ELBOW HEALING WELL, SCAP IN PLACE, NO DRESSING IN PLACE AT THIS TIME. PT DEMONSTRATES USE OF I.S. REACHING 750ML. WARM BLANKET PROVIDED. PT REMAINS UP TO CHAIR. NO ADDITIONAL REQUESTS OR COMPLAINTS. CALL LIGHT WITHIN REACH.
--- NOTE | 2020-10-25 09:16 | NUR ---
PATIENT AWAKE IN CHAIR, LEGS ELEVATED. VITALS AND I&OS CHARTED. LINENS CHANGED, CALL LIGHT IN REACH
--- NOTE | 2020-10-25 10:27 | NUR ---
THIS RN TO ROOM TO CHECK ON PT. PT UP TO CHAIR AND STATES HE IS READY TO WORK WITH PHYSICAL THERAPY. PT DENIES PAIN AND NAUSEA. PTS HAS BROUGHT SOUP AND MANDARIN ORANGES FOR PT FOR LUNCH. PT CONTINUES TO REPORT HE IS "FEELING BETTER" TODAY. NO ADDITIONAL REQUSTS OR COMPLAINTS. PT REMAINS UP TO CHAIR. CALL LIGHT WITHIN REACH. PTS AT BEDSIDE.
--- NOTE | 2020-10-25 11:36 | NUR ---
MEDICAITON DUE. PT RETURNED FROM WORKING WITH PHYSICAL THERAPY. PT REPORTS PHYSICAL THERAPY "WENT WELL." PT DENIES PAIN AND NAUSEA. MEDICATION GIVEN (SEE MAR). IV ABX CONTINUES TO INFUSE. PT BROUGHT PT SOUP AND MANDARINE ORANGES FROM HOME FOR LUNCH. WILL CONSULT DIETARY TO ESTIMATE CALORIE COUNT. PT FINISHED WITH FIRST ENSURE OF THE DAY. 2ND ENSURE PROVIDED. PT DENIES ADDITONAL REQUETS OR COMPLAINTS AT THIS TIME. CALL LIGHT WITHIN REACH. PTS AT BEDSIDE. WARM BLANKET PROVIDED.
--- NOTE | 2020-10-25 11:40 | NUR ---
PATIENT CALLED TO USE BATHROOM. 1PA WITH FWW TO BATHROOM. PATIENT CALLED WHEN FINISHED AND ASSISTED BACK TO BED. FRESH CHUCKS APPLIED TO BED. DENIES ANY FUTHER NEEDS AT THIS TIME. CALL LIGHT IN REACH.
--- NOTE | 2020-10-25 13:40 | NUR ---
AFTERNOON ASSESSMENT DUE. PT UP TO CHAIR, FINISHED WITH LUNCH. PT REPORTS MINIMAL APPITITE FOR LUNCH. ABLE TO EAT ~50% OF SOUP AND ORANGES. ENSURE AT BEDSIDE. PT DENIES PAIN AND NAUSEA. IV ABX INFUSION COMPLETE. MID LINE FLUSHED AND HEPARIN LOCKED PER PROCOTOL, BLOOD RETURN NOTED WITH ARM ELEVATED. ALCOHOL CAP APPLIED. LUNG SOUNDS NOW CLEAR. I.S. USE DEMONSTRATED REACHING 1000ML. +2 PITTING EDEMA CONTINUES TO BILATERAL LOWER LEGS. GENERALIZED SWELLING NOTED TO LEFT HAND. RIGHT HAND, WNL. GENERALIZED SWELLING ALSO NOTED TO ABDOMEN. JANUNDICE CONTINUES TO IMPROVE, MINMAL IN FACE, ARMS, AND HANDS. CONTINUES IN LEGS, ABDOMEN. IMPROVING JANDICE TO EYES. ALLVYN REMAINS OVER COCCYX FOR PADDING. SKIN TEAR TO LEFT ELBOW HEALING, SCAB IN PLACE. PT CONTINUES RESTING IN CHAIR, VISITING WITH . NO ADDITIONAL REQUESTS OR COMPLAINTS. CALL LIGHT WITHIN REACH.
--- NOTE | 2020-10-25 13:41 | NUR ---
CALORIE COUNT TOTAL FROM YESTERDAY 10/24/20: ~1395 CALORIES. PT CONSUMED 4 HP VANILLA ENSURES YESTERDAY. PT SEEMS TO BE DOING BETTER AND INCREASING ENERGY INTAKE. WILL CONTINUE TO MONITOR.
--- NOTE | 2020-10-25 13:42 | NUR ---
PT UP ANBULATING IN HALLWAY WITH Abhishek NORMAN AND PT'S JEREL IN TOW. PT ALERT, SEEMS TO BE ENJOYING BEING UP AND WALKING. PT SEEMED TO APPRRECIATE ENCOURAGEMENT FROM STAFF HE WALKED BY THEM. WILL FOLLOW NEEDED
--- NOTE | 2020-10-25 15:12 | NUR ---
SUPPOSITORY DUE. THIS RN TO ROOM. STAND BY ASSIST WITH CAN BACK TO BED. SUPPISITORY GIVEN. PT RESTING IN BED ON LEFT SIDE. PT DENIES ADDITIONAL REQUESTS OR COMPLAINTS AT THIS TIME. BED RAILS UP. CALL LIGHT IN PTS HAND.
--- NOTE | 2020-10-25 16:03 | NUR ---
PT HERE FOR SEPSIS RELATED TO CHOLANGITIS. PT UP WITH STAND BY ASSIST TO AMBULATE IN DOAN AND UP TO CHAIR AND RESTROOM THIS SHIFT. PHYSICAL THERAPY INVOLVED. PT TOELRATING SOFT DIET WITH MODERATE APPITITE. CONSUMING LESS THAN YESTERDAY BUT STILL ACTIVLY ATTEMPTING TO EAT. CALORIE COUNT CONTINUES. PT DENIES PAIN AND NAUSEA THIS SHIFT. ENSURE PROVIDED FOR SNACKS AND WITH MEALS. PT REPORTING CONSTIPATION, SUPPOSITORY GIVEN IN ADDITIONAL TO BOWEL REGMINE MEDICATIONS. CRACKELS IN BASES OF LUNGS THIS MORNING. I.S. USE ENSURED. IV ABX GIVEN THROUG MIDLINE, NOW HEPARIN LOCKED. ALLEVYN REMAINS ON COCCYX, VISULAIZED THIS SHIFT WITH NO REDNESS OR SKIN BREAKDOWN NOTED OVER COCCYX. SKIN TEAR TO LEFT ELBOW SCABED OVER, HEALING WELL. JAUNDICE IMPROVING, NOW MOST NOTABLE IN LEGS, ABDOMEN, AND ARMS. PTS AT BEDSIDE FOR MOST OF SHIFT. PT VOIDING QUANTITY SUFFICIENT. SUFFICIENT. PT USES CALL LIGHT APPROPRIATLY.
--- NOTE | 2020-10-25 16:37 | NUR ---
THIS RN TO ROOM TO CHECK ON PT. MEDICATION DUE. PT RESTING IN BED. PT ENCOURAGED TO GET UP TO AMBULATE. PT WALKS ONE LAP WITH STAND BY ASSIST FROM THIS RN. PT STEADY ON FEET WITH CANE USE. BACK TO ROOM AND UP TO RESTROOM. PT HAS SMALL SOFT BOWEL MOVEMENT. JOSH CARE DONE. BARRIER CREAM APPLIED. PT UP TO CHAIR FOR DINNER. MEDICATIO GIVEN. (SEE MAR). PT DEMONSTRATES USE OF I.S. REACHING 750ML. PT POSITIONED TO SEE OUTSIDE OF WINDOW. WARM BLANKETS PROVIDED. NO ADDITIONAL REQUESTS OR COMPLAINTS. CALL LIGHT WITHIN REACH.
--- NOTE | 2020-10-25 17:15 | NUR ---
DINNER ARRIVED. PT ASSISTED WITH CUTTING UP SANDWICH. ENSURE PROVIDED. PT DENIES ADDITIONAL REQUESTS OR COMPLAINTS. CALL LIGHT WITHIN REACH.
--- NOTE | 2020-10-25 18:30 | NUR ---
THIS RN TO ROOM TO CHECK ON PT. PT RESTING IN BED WITH EYES CLOSED. RESPIRATIONS EVEN AND UNLABORED, HEAD OF BED ELEVATED TO 30 DEGREES. BED RAILS UP. CALL LIGHT WITHIN REACH.
--- NOTE | 2020-10-25 18:36 | NUR ---
Patient resting in bed, vitals and i&os charted.
--- NOTE | 2020-10-25 19:51 | NUR ---
PATIENT IN BED TALKING ON HIS PHONE, NO NEEDS RIGHT NOW, CALL LIGHT IN REACH.
--- NOTE | 2020-10-25 21:40 | NUR ---
IN ROOM TO ASSIST RN WITH VITALS AND I&O. 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 PATIENT DENIES HAVING TO USE THE BATHROOM AFTER BEING OFFERED. CALL LIGHT IN REACH. RN LATASHA IN ROOM. PATIENT DENIES ANY FUTHER NEEDS AT THIS TIME.
--- NOTE | 2020-10-26 00:03 | NUR ---
PATIENT RESTING QUITLY IN BED, EYES CLOSED, RESPIRATIONS RREGULAR AND EVEN, CALL LIGHT IN REACH.
--- NOTE | 2020-10-26 02:17 | NUR ---
PATIENT RESTING QUIETLY AT THIS TIME, CALL LIGHT IN REACH, RESPIRATIONS REGUALR AND EVEN, EYES CLOSED.
--- NOTE | 2020-10-26 02:28 | NUR ---
PATIENT CALLED AND HE SAID HE IS HAVING 4/10 ABD PAIN. 2.5MG PO OXCODONE GIVEN. CALL LIGHT IN REACH AND NO OTHER NEEDS AT THIS TIME.
--- NOTE | 2020-10-26 04:23 | NUR ---
PT CALLED FOR ASSISTANCE TO THE RESTROOM. 1PA WITH CANE WITH RESTROOM AND BACK TO BED. HE DENIES FURTHER NEEDS AT THIS TIME. CALL LIGHT IS CLOSE.
--- NOTE | 2020-10-26 06:15 | NUR ---
PATIENT SLEPT UNTIL ABOUT 0238, PATIENT WAS GIVEN 2.5MG OF OXYCODONE FOR 4/10 ABD ACHE. THIS DID NOT HELP. PATIENT HAD HIS AM MYLICON AND ZOFRAN, AWAITING TO SEE IF THESE HELP AT ALL. PATIENT'S VS HAVE REMAINED FINE. PATIENT HAS HAD GOO URINE OUTPUT AND HAD 2BMS THIS SHIFT. PATIENT IS CURRENTLY RESTING QUIETLY, CALL LIGHT IN REACH.
--- NOTE | 2020-10-26 07:25 | NUR ---
0705: Report received from Izaiah RINCON. Pt sleeping, call redd within reach.
--- NOTE | 2020-10-26 08:25 | NUR ---
PT RESTING IN HIS BED AND USING HIS IS INSTRUCTED. HE COMPLAINS OF ABD PAIN RATED AT AN 8/10 BUT DENIES ANY OTHER PROBLEMS. THE PT STATES HE IS GETTING STRONGER AND IS NOW EATING BREAKFAST. SEE EMAR REGARDING HIS PAIN LEVEL. BED ALARM IS ON AT THIS TIME. ASSESSMENT COMPLETED.
--- NOTE | 2020-10-26 10:22 | NUR ---
Pt working with physical therapy at this time.
--- NOTE | 2020-10-26 10:58 | NUR ---
Pt resting in his chair with his legs elevated and he states he is doing well. He states he did well with physical therapy and feels that he is getting stronger. He denies any problems or needs at this time and is visiting with his daughter who is present in the room.
--- NOTE | 2020-10-26 11:00 | NUR ---
No change in plan for dc to home beginning of next week.
--- NOTE | 2020-10-26 13:03 | NUR ---
PT RESTING IN HIS CHAIR VISITING WITH HIS DAUGHTER, HE DENIES ANY PAIN AT THIS TIME. HE CONTINUES TO EAT POORLY BUT IS TAKING ENSURE AT THIS TIME. CALL LIGHT WITHIN REACH AND CHAIR ALARM IS ON. WILL CONTINUE TO MONITOR, ASSESSMENT COMPLETED.
--- NOTE | 2020-10-26 13:18 | NUR ---
CALORIE COUNT RESULTS FROM YESTERDAY 10/25/20: ~1,072 CALORIES WAS CONSUMED. PATIENT STATES HE ASKED FOR THE ROAST BEEF FOR A SANDWICH TO COME MINCED BUT IT CAME CHOPPED AND HE DID NOT EAT MUCH OF IT FOR DINNER LAST NIGHT. HIS STOMACH WAS BOTHERING HIM THIS MORNING. HE DID ORDER A SMALL LUNCH THOUGH. HE CONTINUES TO DRINK VANILLA ENSURE - EITHER THE HIGH PROTEIN (2 GM OF FAT) OR THE ENLIVE (11 GM OF FAT) DEPENDING ON WHAT THE FAT CONTENT OF HIS MEAL IS. FOOD PREFERENCES: PREFERS MINCED & MOIST MEAT. LIKES EGGS BUT THEY ARE TOO DRY. LIKES PB BUT IT STICKS TO HIS MOUTH. NOT A MILK DRINKER. NOT A CHICKEN FAN. LIKES CREAM OF WHEAT. LIKES SHERBET. DID NOT ASK ABOUT SALMON. LIKES SHERBET.
--- NOTE | 2020-10-26 13:33 | NUR ---
PT UP AMBULATING IN DOAN WITH Abhishek NORMAN AND DAUGHTER LEAH IN TOW. WHEN I INQUIRED ABOUT PT'S DAY, HE GRUMBLED AND LEAH STATED "IT IS NOT ONE OF HIS BETTER DAYS". GAVE ENCOURAGEMENT, WILL FOLLOW
--- NOTE | 2020-10-26 14:49 | NUR ---
PT DENIES ANY PROBLEMS OR NEEDS AND IS DRINKING AN ENSURE AT THIS TIME. CALL SERRANO IN REACH AND CHAIR ALARM IS TURNED ON.
--- NOTE | 2020-10-26 16:18 | NUR ---
Pt sleeping, call redd within reach.
--- NOTE | 2020-10-26 18:27 | NUR ---
Checked on pt. Pt had small scratch on the middle of his left ear. Cleaned with NS syringe and gauze.
--- NOTE | 2020-10-26 19:15 | NUR ---
REPORT RECEIVED FROM ARVIND RINCON. PT RESTING IN BED, STATES HE IS COMFORTABLE. A+O. CALL LIGHT IN REACH. NO FURTHER REQUESTS AT THIS TIME.
--- NOTE | 2020-10-26 20:35 | NUR ---
MEDICATIONS ADMINISTERED. PT AMBULATED TO BR TO VOID WITH 1PA AND CANE, STEADY GAIT. 1 SMALL, SOFT BM AND VOID. PT REPORTS NO PAIN. MIDLINE HEP LOCKED, 28 CM, WNL. APPLE JUICE PROVIDED. VITALS TAKEN, I/O'S COMPLETE. WARM BLANKETS PROVIDED, CALL LIGHT IN REACH.
--- NOTE | 2020-10-26 23:02 | NUR ---
PT RESTING IN BED WITH EYES CLOSED, BREATHING EVEN AND UNLABORED. NO APPARENT NEEDS, CALL LIGHT IN REACH.
--- NOTE | 2020-10-27 01:00 | NUR ---
PT CALLING, SBA WITH CANE TO THE BATHROOM, PT NOW BACK TO BED, NO FURTHER NEEDS AT THIS TIME
--- NOTE | 2020-10-27 02:05 | NUR ---
ROUNDED ON PATIENT, IN BED WITH EYES CLOSED. EVEN BREATHING. NO APPARENT NEEDS. CALL LIGHT IN REACH.
--- NOTE | 2020-10-27 03:52 | NUR ---
CALL LIGHT ANSWERED, PT REQUESTS PAIN MEDICATION FOR 5/10 ABDOMINAL PAIN. SEE MAR. PT REPORTS CONSTANT, ACHING PAIN UNRELIEVED BY POSITIONING OR REST. ASSESSMENT OTHERWISE UNCHANGED. WILL CONTINUE TO MONITOR
--- NOTE | 2020-10-27 05:00 | NUR ---
CALL LIGHT ANSWERED, PT SBA WITH CANE TO BR TO VOID. VITALS AND I/O'S COMPLETED. WARM BLANKETS PROVIDED. NO FURTHER REQUESTS. CALL LIGHT IN REACH
--- NOTE | 2020-10-27 09:55 | NUR ---
Pt left for x-ray at approx 0942 and returned and was assisted into bed at 0955 by myself and [employer] [facility].
--- NOTE | 2020-10-27 10:41 | NUR ---
UA sent to the lab as ordered. Pt walking in the halls with physical therapy at this time.
--- NOTE | 2020-10-27 11:28 | NUR ---
SN INSTRUSTOR SAMI INFORMED ME THAT SHE HAS SPENT TIME WITH PT WELL SN AND FELT A FOLLOW UP BY ME WOULD BE HELPFUL. CHECKED ON PT- JEREL IN RM READING TO PT. HAD PLEASANT VSIT, INQUIRED ABOUT PT EATING BREAKFAST. HE ' SAID HE ATE IT ALL AND ALSO SOME ENSURE. PT JOKED WITH ME ABOUT GETTING A STICKER-PT REQUESTED PRAYER. WILL FOLLOW
--- NOTE | 2020-10-27 12:01 | NUR ---
Pt eating his lunch at this time and is visiting with his .
--- NOTE | 2020-10-27 12:08 | NUR ---
During midline dressing change, Pt coughed up a fair amount of lightly green tinged sputum. There was no measurement of the amount of sputum. We discussed working on incentive spirometer and coughing more frequently after he ate lunch. Call light was in reach.
--- NOTE | 2020-10-27 13:38 | NUR ---
PT RESTING IN HIS BED AND IS DROWSY AT THIS TIME AND FELL TO SLEEP DURRING ASSESSMENT. NO CHANGES IN HIS CONDITION NOTED, SEE ASSESSMENT.
--- NOTE | 2020-10-27 13:38 | NUR ---
ON 10/26/2020, PT CONSUMED 1256 CALORIES. DIET CHANGED FROM LOW FAT TO REGULAR DIET TODAY, WHICH WILL HELP PT INCREASE CALORIC INTAKE. PT'S BROUGHT FOOD FROM HOME; RD ASSISTED WITH CALCULATING CALORIES OF MEAL.
--- NOTE | 2020-10-27 17:16 | NUR ---
PT AMBULATED TO THE BR WITH ASSIST FROM THE PIT SHOVELER AND HE NOW SITTING IN HIS CHAIR EATING HIS DINNER. HE DENIES ANY PROBLEMS AT THIS TIME. CALL SERRANO WITHIN REACH AND CHAIR ALARM IS ON.
--- NOTE | 2020-10-27 17:47 | NUR ---
PT ATE 75% OF HIS DINNER AND CONTINUES TO DENY ANY PROBLEMS AFTER EATING. CHAIR ALARM REMAINS TURNED ON AND CALL SERRANO WITHIN REACH.
--- NOTE | 2020-10-27 19:05 | NUR ---
REPORT RECEIVED FROM ARVIND RINCON. PATIENT RESTING IN BED, NO NEEDS AT THIS TIME. CALL LIGHT IN REACH.
--- NOTE | 2020-10-27 19:20 | NUR ---
IN TO ASST PT UP TO THE TOILET, SBA WITH CANE, PT NOW BACK IN BED, NO FURTHER NEEDS AT THIS TIME
--- NOTE | 2020-10-27 21:05 | NUR ---
SCHEDULED MEDICATIONS ADMINISTERED, ASSESSMENT COMPLETE. VITALS AND I/O'S COMPLETE. PT RESTING IN BED, STATES IS COMFORTABLE WITH NO NEEDS. HEP LOCKED MIDLINE, 26CM IN DIAMETER. BLOOD RETURN NOTED. SLIGHT COARSENESS NOTED IN LUNGS, ABD MILDLY DISTENDED, BOWEL TONES ACTIVE. 3+ EDEMA IN BLE. PT STATES CHRONIC N/T IN BLE. STATES NO PAIN AT THIS TIME. CALL LIGHT IN REACH.
--- NOTE | 2020-10-27 22:30 | NUR ---
ROUNDED ON PATIENT, RESTING IN BED WITH EYES CLOSED. BREATHING EVEN AND REGULAR. NO APPARENT NEEDS AT THIS TIME. CALL LIGHT IN REACH.
--- NOTE | 2020-10-28 00:09 | NUR ---
ROUNDED ON PATIENT, LAYING IN BED WITH EYES CLOSED. BREATHING EVEN AND REGULAR. NO APPARENT NEEDS AT THIS TIME. CALL LIGHT IN REACH, BED ALARM ON.
--- NOTE | 2020-10-28 02:46 | NUR ---
Checked in on patient, resting in bed with eyes closed, breathing regularly. Call light in reach, bed alarm on at this time for safety.
--- NOTE | 2020-10-28 03:04 | NUR ---
Call light answered, pt states having stomach ache. Mylicon chew administered. Pt states no other needs, call light in reach.
--- NOTE | 2020-10-28 05:10 | NUR ---
CHECKED ON PATIENT, IN BED WITH EYES CLOSED, BREATHING EVEN AND REGULAR. NO APPARENT NEEDS.
--- NOTE | 2020-10-28 06:13 | NUR ---
IN TO GET PT VITALS, WEIGHT DONE, PT UP TO THE TOILET, SBA WITH CANE, NO FURTHER NEEDS AT THIS TIME
--- NOTE | 2020-10-28 06:37 | NUR ---
Sat down with patient this morning and chatted about how he is feeling. Pt states wanting to go home with his family, reminisced on some past fishing trips, and ultimately decides he needs to take a nap. Pt appears slightly drowsy and is slow to respond at times. Reports mild abdominal discomfort, denies need for pain medication at this time but states he knows it is available if needed. Follow up from pastoral care would likely be appreciated by patient.
--- NOTE | 2020-10-28 07:28 | NUR ---
0718: Report received from Elaina RINCON. Pt sleeping at this time with his call redd within reach.
--- NOTE | 2020-10-28 08:13 | NUR ---
PT DENIES ANY PAIN OR NEW PROBLEMS. HE IS EATING HIS BREAKFAST AT THIS TIME, CALL SERRANO IS WITHIN REACH. ASSESSMENT COMPLETED.
--- NOTE | 2020-10-28 10:24 | NUR ---
Pt resting in his chair visiting with his . He denies any needs or pain or problems at this time. Call redd within reach.
--- NOTE | 2020-10-28 11:44 | NUR ---
PT RESTING IN HIS CHAIR AWAITING HIS LUNCH AT THIS TIME. HE REQUESTED A WARM BLANKET AND DENIES ANY OTHER NEEDS. CALL SERRANO IN REACH AND HIS IS PRESENT IN THE ROOM.
--- NOTE | 2020-10-28 13:15 | NUR ---
PT DENIES ANY PAIN OR NEW PROBLEMS. CALL SERRANO WITHIN REACH. ASSESSMENT COMPLETED.
--- NOTE | 2020-10-28 16:25 | NUR ---
PATIENT TOOK A SHOWER TODAY. PATIENT IS SITTING UP IN HIS CHAIR IN ROOM.
--- NOTE | 2020-10-28 16:39 | NUR ---
Pt ambulated in the halls with his cane and a sba. Pt tolerated the walk well and was steady on his feet. Pt now back in his chair with his call redd within reach.
--- NOTE | 2020-10-28 19:10 | NUR ---
PT LYING IN BED. EYES CLOSE. RR WNL WITH UNLABORED BREATHING. SHIFT REPORT RECIEVED BY RN. CALL LIGHT IN REACH.
--- NOTE | 2020-10-28 19:15 | NUR ---
AFTER I GOT THE VITALS DONE PATIENT HAD TO USE THE BATHROOM. AFTER HE WAS DONE HE WANTED TO GO TO BED. BED ALARM IS ON. CALL LIGHT ON HIS TUMMY.
--- NOTE | 2020-10-28 21:56 | NUR ---
PT LYING IN BED. VS STABLE. ASSESSMENT COMPLETE. I AND O'S DONE. PT DENIES PAIN AND SOB. SOME GENERALIZED JAUNDICE NOTED. +2 EDEMA BLE. HEP LOCK COMPLETE NO BLOOD RETURN NOTED FROM SALINE FLUSH. STANDBY WITH CANE TO THE BATHROOM. TOLERATED WELL. ALLEYVN INTACT ON COCCYX. NO ABRASIONS OR REDNESS NOTED. PT HAD 150ML OF ENSURE. TOLERATED WELL. REPOSITIONED PT IN BED. CALL LIGHT IN REACH. NO FURTHER NEEDS.
--- NOTE | 2020-10-28 22:43 | NUR ---
PT LYING IN BED. EYES CLOSED. RR WNL WITH UNLABORED BREATHING. CALL LIGHT IN REACH.
--- NOTE | 2020-10-29 01:15 | NUR ---
PT LYING IN BED. EYES CLOSED. RR WNL WITH UNLABORED BREATHING. CALL LIGHT IN REACH.
--- NOTE | 2020-10-29 03:13 | NUR ---
PT LYING IN BED. EYES CLOSED. RR WNL WITH UNLABORED BREATHING. CALL LIGHT IN REACH. BED ALARM ON.
--- NOTE | 2020-10-29 03:44 | NUR ---
PT LYING IN BED. STANDBY ASSIST TO THE BATHROOM WITH A CANE. TOLERATED WELL. PT REPOSITIONED IN BED. DENIES SOB AND PAIN. ASSESSMENT COMPLETE. DECREASED JAUNDICE NOTED ON SKIN. SOME CRACKLES NOTED ON BILATERAL LOWER LOBES. CALL LIGHT IN REACH. BED ALARM ON.
--- NOTE | 2020-10-29 03:44 | NUR ---
IN TO CHECK PT's BED ALARM, TOPPED OFF ICE WATER, NO FURTHER NEEDS AT THIS TIME
--- NOTE | 2020-10-29 05:10 | NUR ---
PT STANDBY WITH A CANE AT BASELINE TO THE BATHROOM. DECREASED JAUNDICE NOTED ON SKIN. +2 PITTING EDEMA ON BLE. ELEVATED LEGS. HAD SOME ENSURE THROUGHOUT THE NIGHT. pT SLEPT THROUGHOUT THE NIGHT. CALLED APPROPRIATLY. BED ALARM ON.
--- NOTE | 2020-10-29 06:01 | NUR ---
IN TO GET PT VITALS, PT UP TO VOID, SBA WITH CANE, WEIGHT TAKEN, WARM BLANKET AND WATER REFILLED, NO FURTHER NEEDS AT THIS TIME
--- NOTE | 2020-10-29 07:10 | NUR ---
BEDSIDE HANDOFF REPORT RECEIVED FROM LINK TRAINER RN. PT SLEEPING, LEFT UNDSITURBED.
--- NOTE | 2020-10-29 08:27 | NUR ---
PT ASSISTED TO CHAIR FOR BREAKFAST. PT ON ROOM AIR, LUNG SOUNDS CLEAR WITH FINE CRACKLES IN BASES, DENIES SOB. PT REPORT OF MILD UPPER ABD PAIN, BOWEL TONES ACTIVE, DENIES NAUSEA. PT JAUNDICED BUT IMPROVED FROM ADMISSION. PT WITH EDEMA TO BLE 3+ AROUND ANKLES, LEGS ELEVATED. IV CEFEPIME INFUSING TO RIGHT MIDLINE. PT DENIES OTHER NEEDS AT THIS TIME.
--- NOTE | 2020-10-29 09:05 | NUR ---
PT COMPLAINT OF UPPER ABD PAIN, PT STATES PAIN IS 5/10 AND THE SMAE PAIN HE HAS BEEN HAVING. GIVEN 2.5MG OXYCODONE. PT DENIES OTHER NEEDS AT THIS TIME.
--- NOTE | 2020-10-29 15:00 | NUR ---
PT SITTING IN CHAIR, PT DENIES NEEDS AT THIS TIME.
--- NOTE | 2020-10-29 16:15 | NUR ---
SPOKE WITH RN AND CONCERNED THAT PT APPEARS "HIGH" AFTER OXYCODONE THIS AM, REQUESTING THAT PT NOT RECEIVE OXYCODONE IF ABLE TO AVOID IT, STATES THAT PT WAS DEPENDENT ON PAIN MEDICATION BEFORE AND IS WORRIED ABOUT DEPENDENCE AGAIN.
--- NOTE | 2020-10-29 17:01 | NUR ---
PATIENT ATE 190 CALORIES OF MINESTRONI SOUP VIA HIS
--- NOTE | 2020-10-29 18:15 | NUR ---
PT WITH COMPLAINT OF PAIN THIS AM, GIVEN OXYCODONE, PAIN RESOLVED. PT UP WITH SBA WITH CANE, WALKED IN DOAN WITH PT. PT TOLERATING DIET, SMALL APPETITE, CALORIE COUNT IN PLACE. MIDLINE IV HEP LOCKED. PT WITH EDEMA TO BLE, ELEVATED LEGS. VOIDING QS, HAD BM TODAY.
--- NOTE | 2020-10-29 19:30 | NUR ---
SBA. PATIENT FROM CHAIR TO BATHROOM TO BED USING CANE. PATIENT FORGOT TO PULL DOWN HIS PULL UPS AND VOIDED ON. PATIENT HAD A SMALL BOWEL MOVEMENT. WARM BLANKETS PROVIDED. CALL LIGHT ON HIS HAND.
--- NOTE | 2020-10-29 19:37 | NUR ---
PT LYING IN BED. SHIFT REPORT RECIEVED BY RN. CALL LIGHT IN REACH.
--- NOTE | 2020-10-29 21:45 | NUR ---
PT LYING IN BED. DENIES PAIN. NO SOB. ASSESSMENT COMPLETE. I AND O'S DONE. VS STABLE. DRESSING INTACT ON COCCYX. NO REDNESS NOTED. PT HAS +3 PITTING EDEMA ON BILATERAL ANKLES. MIDLINE PICC FLUSHED WITH HEPARIN. NO BLOOD RETURN. CONSUMED SOME ENSURE. TOLERATED WELL. CALL LIGHT IN REACH. NO FURTHER NEEDS.
--- NOTE | 2020-10-30 00:29 | NUR ---
SBA PATIENT FROM BATHROOM TO BED USING CANE. CALL LIGHT ON HIS HAND. NO OTHER NEEDS AT THIS TIME.
--- NOTE | 2020-10-30 01:15 | NUR ---
PT LYING IN BED. EYES CLOSED. RR WNL WITH UNLABORED BREATHING. CALL LIGHT IN REACH. BED ALARM ON.
--- NOTE | 2020-10-30 02:18 | NUR ---
PT STANDBY TO THE BATHROOM. NUT STEAMER AND THIS NURSE REPOSITIONED PT IN BED. ASSESSMENT COMPLETE. DENIES PAIN AND SOB. CALL LIGHT IN REACH.
--- NOTE | 2020-10-30 02:19 | NUR ---
SBA TO THE BATHROOM USING CANE AND BACK TO BED. WARM BLANKETS PROVIDED. NO OTHER NEEDS AT THIS TIME.
--- NOTE | 2020-10-30 05:29 | NUR ---
CALL LIGHT ANSWERED. SBA. PATIENT USED THE BATHROOM USING CANE. DAILY WEIGHT, V/S AND I&O'S DONE AND RECORDED. PRIMARY RN WAS WITH PATIENT.
--- NOTE | 2020-10-30 05:30 | NUR ---
ASSISTED PT TO THE BATHROOM. TOLERATED WELL. GENERALIZED JAUNDICE NOTED. PT DENIES PAIN. VS STABLE. I AND O'S DONE. REPOSITIONED PT IN BED. CALL LIGHT IN REACH.
--- NOTE | 2020-10-30 08:01 | NUR ---
PATIENT WAS IN BED, PATIENT USED WARM WASHCLOTH FOR HIS FACE AND WAS WAITING PATIENTLY FOR HIS BREAKFAST, PATIENT SAID AFTER BREAKFAST HE WOULD LIKE TO BRUSH HIS TEETH.
--- NOTE | 2020-10-30 08:05 | NUR ---
REPORT RECIEVED FROM PLANT AND INSTRUMENT ENGINEER. PT IN BED LYING ASLEEP WITH EYES CLOSE. NO COMPLICATIONS AT THIS TIME. CALL LIGHT WITHIN REACH.
--- NOTE | 2020-10-30 08:12 | NUR ---
ASSISTED PT SBAND BY WITH CANE TO BATHROOM THEN UP TO CHAIR. PT INDEPENDENT AT USING BATHROOM AND WALKING. CALL LIGHT INREACH. WATER REFRESHED. ATE ALL OF CREAM O WHEAT. ENURE AT SIDE.
--- NOTE | 2020-10-30 10:00 | NUR ---
PT SITTING IN CHAIR WITH LEGS ELEVATED. ASSESSMENT DONE. ALERT AND ORIENTED. ENSURE AND WATER NEXT TO CHAIR. DOES NOT REPORT ANY NEEDS OR CONCERNS AT THIS TIME. CALL LIGHT WITHIN REACH.
--- NOTE | 2020-10-30 10:15 | NUR ---
patient up in chair, visiting with pastorial care, patient only ate about 80 calories for brekfast, states he doesnt much care for the food here.
--- NOTE | 2020-10-30 11:19 | NUR ---
PT ALERT, SITTING IN CHAIR, VISITING WITH HIS JEREL. PT WELCOMED ME IN, HAD PLEASANT VISIT. JEREL CONCERNED ABOUT DECISIONS THAT NEED TO BE MADE FOR PT'S FURTHER CARE. SHE ASKED FOR WISDOM, AND BELIEVES STRONGLY IN PRAYER. PT THANKED ME FOR PRAYING,MISSES FEELING THE WIND BLOW AND HEARING IT RUSTLE THE TREES. GAVE ENCOURAGEMENT, WILL FOLLOW NEEDED
--- NOTE | 2020-10-30 12:07 | NUR ---
PT TRIED TO EAT SOME SOUP BROUGHT BUT HAD NAUSEA AND WAS UNABLE TO EAT IT. ZOFRAN GIVEN FOR NAUSEA.
--- NOTE | 2020-10-30 12:23 | NUR ---
PT REPORTS NAUSEA AND SMALL AMOUNTS OF EMESIS AFTER SOUP BROUGHT IN FROM . CHARGE NURSE IN TO EVALUATE AND ADMINISTER ZOFRAN. ORAL MEDICATION PRN. ANTIBIOTIC INFUSING. PT SITTING UP IN CHAIR WITH LEGS UP EYES CLOSED. CALL LIGHT WITHIN REACH.
--- NOTE | 2020-10-30 14:00 | NUR ---
CALLED PATIENTS GEOFF [phone]. DISCUSSED WITH HER THE CALL FROM [facility]. SHE STATES SHE DID CALL THEM. SHE STATES SHE WANTED TO ASK AGAIN ABOUT VISITING. SHE STATES THEY ANSWERED HER QUESTIONS. SHE STATES PATIENT WANTS TO COME HOME, BUT SHE STATES SHE IS UNSURE SHE CAN HELP HIM, ESPECIALLY IF HE NEEDS IV ANTIBIOTICS. SHE STATES IF HE CONTINUES TO NEED A LOT OF HELP WITH ADL'S HE MAY NEED TO GO FOR NOW AND THAT WOULD BE THEIR FIRST CHOICE. I ANSWERED HER QUESTIONS. WE DISCUSSED HOW INSURANCE WORKS, LABS, MEDICATIONS. AGREED THAT I WILL MAKE SURE [facility] HAS THE CHART REFERRAL FOR CONSIDERATION.
--- NOTE | 2020-10-30 14:23 | NUR ---
PATIENT IS IN CHAIR, PATIENT ATE A BANANA, PATIENT'S VITAL SIGNS DONE, INTAKE AND OUTPUT RECORDED, PATIENT NEEDED NO OTHER ASSISTANCE. THIS LAY OUT CARPENTER BROUGHT AN ENSURE FOR THE PATIENT TO SIP ON
--- NOTE | 2020-10-30 14:25 | NUR ---
PT SITTING IN CHAIR WITH LOWER EXTREMEITIES ELEVATED. ASSISTED PT TO RESTROOM. COCCYX ALLEVYN DRY AND INTACT. PAIN WITHIN LIMITS. NAUSEA SUBSIDED. ASSISTED PT BACK TO CHAIR. WARM BLANKET. WATER REFILLED. NO CONCERNS. CALL LIGHT WITHIN REACH.
--- NOTE | 2020-10-30 14:28 | NUR ---
RECEIVED PHONE CALL FROM TISH GILLESPIE AT [facility] WITH MESSAGE LEFT AT [phone] STATING SHE RECEIVED A CALL FROM PATIENTS AND SHE WOULD LIKE PATIENT TO COME THERE AT DISCHARGE. SHE ASKS FOR CHART REFERRAL TO BE SENT TO [phone]. CALLED HER BACK AT [phone] AND LEFT MESSAGE ASKING IF THEY GOT ANY OF THE CHART FAXED LAST WEEK.
--- NOTE | 2020-10-30 15:54 | NUR ---
PT RESTING IN CHAIR WITH LEGS ELEVATED ORIENTED TO TIME AND PLACE. AT BEDSIDE. NO CONCERNS. CALL LIGHT WITHIN REACH.
--- NOTE | 2020-10-30 15:54 | NUR ---
PATIENT WAS UP AND USED THE RESTROOM, ONE PERSON STANDBY WITH HIS CANE, PATIENT WENT BACK TO THE CHAIR AFTER THE RESTROOM, AND IS CURRENTLY RESTING.
--- NOTE | 2020-10-30 17:01 | NUR ---
SPOKE WITH PATIENT AND . DISCUSSED WITH PATIENT THAT HE IS GETTING CLOSER TO BEING DONE WITH ACUTE CARE. WE DISCUSSED HE MAY NEED IV ANTIBIOTICS FOR A LONGER PERIOD AND CONTINUED PT. WE DISCUSSED HE IS STILL WEAK AND HIS IS NOT ABLE TO HELP HIM PHYSICALLY AT HOME UNLESS HE IS A LITTLE STRONGER. SHE ALSO AGREES WITH THIS. DISCUSSED THAT FOR A SECOND OPTION WE ARE LOOKING AT POSSIBLE REHAB STAY AND HIS FAMILY IS INTERESTED IN [facility] [place]. TELLS HIM SHE TALKED WITH THEM AND THEY FEEL IT IS THE BEST OPTION FOR HIM IN THE AREA. HE STATES "I WISH I DIDN'T NEED IT, BUT IF I DO, I GUESS I DO". WE DICUSSED THAT CHART WAS SENT THERE FOR REFERRAL AND WE WILL LOOK AT THINGS AGAIN IN THE MORNING AND THE DOCTOR WILL BE THE ONE MAKING THE DECISION ON HOW MUCH LONGER HE MEETS ACUTE CARE NEED VS. DETENTION NEED AND WHEN THAT HAPPENS WE CAN MAKE A DECISION. HE AGREES WITH THIS. QUESTIONS ANSWERED.
--- NOTE | 2020-10-30 18:14 | NUR ---
PT SITTING IN CHAIR WITH LEGS ELEVATED. EATING DINNER. SCHEDULED MEDICATION ADMINISTERED. ORDERED A COOKIE. PT REFUSED DINNER REPORTED NO APPETITE. ENSURE AT BEDSIDE. NO CONCERNS. CALL LIGHT WITHIN REACH.
--- NOTE | 2020-10-30 19:23 | NUR ---
REPORT RECEIVED FROM DAY SHIFT RN. PT SITTING IN RECLINER WITH FEET ELEVATED. ALERT AND ORIENTED. DENIES NEEDS AT THIS TIME. WHITE BOARD UPDATED. CALL LIGHT IN REACH.
--- NOTE | 2020-10-30 19:30 | NUR ---
PATIENT CALLED TO USE THE BATHROOM. SBA USING CANE. PATIENT IS NOW BACK IN BED. WARM BLANKETS PROVIDED. CALL LIGHT WITHIN REACH.
--- NOTE | 2020-10-30 21:00 | NUR ---
EVENING ASSESSMENT COMPLETE. SCHEDULED MEDS ADMINISTERED PER EMAR. PT DENIES PAIN OR NAUSEA. GENERALIZED JAUNDICE NOTED. EDEMA NOTED IN BLE. ALLEVYN TO COCCYX CDI. PT CONTINUES TO CONSUME ENSURE AT BEDSIDE. DENIES QUESTIONS OR CONCERNS AT THIS TIME. BED ALARM FOR SAFETY. CALL LIGHT IN REACH.
--- NOTE | 2020-10-30 23:39 | NUR ---
CALL LIGHT ANSWERED. PT UP TO BR WITH SBA AND CANE TO VOID. GAIT STEADY. BACK TO BED, CABRERA WELL. WARM BLANKET PROVIDED. DENIES FURTHER NEEDS. BED ALARM FOR SAFETY. CALL LIGHT IN REACH.
--- NOTE | 2020-10-31 01:47 | NUR ---
PT RESTING IN BED WITH EYES CLOSED, NAD. CALL LIGHT IN REACH. BED ALARM FOR SAFETY.
--- NOTE | 2020-10-31 03:05 | NUR ---
PT RESTING IN BED WITH EYES CLOSED, NAD.
--- NOTE | 2020-10-31 05:28 | NUR ---
CALL LIGHT ANSWERED. PT UP TO BR WITH MINIMAL SBA AND CANE TO VOID AND HAVE SMALL BOWEL MOVEMENT. STAFF ASSIST WITH [facility]. DAILY WEIGHT OBTAINED. BACK TO BED. GAIT STEADY. ENSURE AND FRESH ICE WATER PROVIDED. VS AND I&O COMPLETE. PT DENIES PAIN OR NAUSEA. BED ALARM FOR SAFETY. CALL LIGHT IN HAND.
--- NOTE | 2020-10-31 07:10 | NUR ---
BEDSIDE REPORT FROM DOC RINCON. PT RESTING NO APPARENT DISTRESS.
--- NOTE | 2020-10-31 07:15 | NUR ---
RECIEVED REPORT. PT UP IN CHAIR.PT REQUESTED INFORMATION ON LYRICA AND WATER PILL. STUDENT NURSE HELPED PT ORDER BREAKFAST. CALL LIGHT WITHIN REACH.
--- NOTE | 2020-10-31 08:25 | NUR ---
Call from Ariane at 0825 from [facility]. They will accept this patient when he his discharged. Will discuss with family today and how they would like to transport.
--- NOTE | 2020-10-31 08:30 | NUR ---
pt up in with acute care certified nursing assistant assisting pt with meal. denies needs.
--- NOTE | 2020-10-31 08:45 | NUR ---
ASSESSMENT DONE. SCHEDULED MEDS GIVEN. PT REPORTS PAINS 10/10 PT STATES "LEG IS ON FIRE AND FEELIS LIKE BEING STABBED WITH PINS AND NEEDLES. 2+EDEMA IN LEFT EXTREMITY. TRACE AMOUNTS OF EDEMA IN THE RT EXTREMIY. STUDENT NURSE ASSISSTED PT TO RESTROOM THEN BACK TO BED WITH 1 PERSON STAND BY ASIST. LLE RED IN COLOR, HOT TO TOUCH. PT LAYING IN BED. CALL LIGHT WITHIN REACH.
--- NOTE | 2020-10-31 09:06 | NUR ---
PATIENT IN CHAIR RESTING AT THIS TIME. FOUNDATION DIRECTOR CHANGED LINENS. WARM WASHCLOTH OFFERED. PT IN ROOM TO WORK WITH PATIENT. FRESH WATER GIVEN. CALL LIGHT IN REACH. NO FURTHER NEEDS AT THIS TIME.
--- NOTE | 2020-10-31 10:00 | NUR ---
SPOKE WITH PATIENT AND IN ROOM. WENT OVER ACCEPTANCE AT [facility]. QUESTIONS ANSWERED. DOES NOT THINK SHE CAN TRANSPORT PATIENT. WE DISCUSSED OPTIONS. SHE STATES SHE WILL USE [facility] AND UNDERSTANDS THEY ARE RESPONSIBLE FOR COST, THAT THEY ACCEPT CREDIT CARDS AND THAT WE WILL LET HER KNOW WHEN THEY CAN DO THIS. SHE WILL BRING CLOTHES AND SOME BELONGINGS LATER TODAY FOR PATIENT TO TAKE WITH HIM. WE DISCUSSED THAT INSURANCE SHOULD BE PAYING FIRST 30 DAYS OF STAY, BUT THEY MAY HAVE COPAYS AFTER THAT AND THEY SHOULD TALK WITH FACILITY ABOUT THIS. PATIENT FEELS HE IS DOING BETTER AND HE STATES "I AM GONNA WORK HARD TO GET HOME SOON".
--- NOTE | 2020-10-31 10:30 | NUR ---
PT VISITING WITH SN AND DENIES NEEDS. ENC. FOOD AND DRINK - PT LIKES PADDY GARIBAY. AM CARE DONE WITH SN.
--- NOTE | 2020-10-31 12:11 | NUR ---
VERIFY DOSE OF CREON WITH DR. IT IS DIFFRENT THAN THE MED HE TAKES 3 OF AT HOME. EDUCATED PT AND .
--- NOTE | 2020-10-31 13:58 | NUR ---
DIVINITY TEACHER IN TO DO VITALS. PATIENT SITTING IN CHAIR. CALL LIGHT IN REACH. NO FURTHER NEEDS AT THIS TIME.
[2020-10-31] MEDS ORDERED: OXYCODONE HCL5 MG PO (14:37)
[2020-10-31] MEDS ORDERED: ISOSORBIDE MONO30 MG PO (14:37)
[2020-10-31] MEDS ORDERED: TRAZODONE HCL50 MG PO (14:38)
[2020-10-31] MEDS ORDERED: CREON DR 6,0001 EACH PO (14:39)
[2020-10-31] MEDS ORDERED: SODIUM CHLORID IV (14:39)
--- NOTE | 2020-10-31 14:47 | NUR ---
SPOKE WITH BALWINDER FROM [facility] REGARDING ADMIT TOMORROW. SHE STATES ORDERS CAN BE FAXED TO THEM [phone] WHEN READY. SHE STATES HE CAN COME ANYTIME AFTER 9:30AM TOMORROW. THEY JUST ASK THAT A CALL BE MADE WHEN WE KNOW WHAT TIME THE TRANSPORT CAN TAKE HIM TOMORROW.
--- NOTE | 2020-10-31 15:00 | NUR ---
CALLED AND SPOKE WITH ABOUT DISCHARGE TOMORROW. SHE STATES SHE WILL BE HERE BY 9AM WITH CLOTHES. DISCUSSED WITH HER THAT WE WILL ARRANGE TRANSPORT. ASKED IF SHE THINKS HE NEEDS A W/C VAN STAFF TODAY STATES THEY DON'T THINK HE DOES HE NEVER USES ONE HERE AND THEY THINK HE CAN GET IN/OUT OF A CAR. SHE STATES SHE ONLY THOUGHT HE HAD TO GO THAT WAY FROM A CONVERSATION WITH A DOCTOR LAST WEEK. SHE DOES NOT THINK SHE CAN DRIVE HIM THOUGH. SHE DOES NOT DRIVE DISTANCES ON HER OWN AND SHE HAS NO ONE TO GO WITH HER TOMORROW. SHE TRUSTS US TO MAKE THAT DECISION. QUESTIONS ANSWERED. STAFF UPDATED. JUMPBASTING ARMHOLE BASTER IS WORKING ON ARRANGING TRANSPORTATION.
--- NOTE | 2020-10-31 15:22 | NUR ---
PT UP AMB IN DOAN WITH PT STANDBY WITH FWW. TOLLERATING WELL - DENIES NEEDS AT THIS TIME - PLAN FOR DC TO FACILITY TOMORROW AFTER ABX.
--- NOTE | 2020-10-31 15:31 | NUR ---
FAXED TO [facility] [phone] ORDERS, RX AND PASSR. FAX CONFIRMATION RECEIVED 324PM. SPOKE WITH PRESIDENT [employer], SHE WILL ORDER NEW COVID SCREEN THIS HAS TO BE DONE 24 HOURS OR CLOSER BEFORE DISCHARGE TO SNF.
--- NOTE | 2020-10-31 15:42 | NUR ---
PT UP IN CHAIR. JASON STARTED IN RT FOREARM. IN ROOM WITH CARE MANAGEMENT. PAIN 07/08. PT STATES "FOOT FEELS LIKE IT IS ON FIRE." PRN PAIN MEDICATION ADMINISTERED. CALL LIGHT WITHIN REACH.
--- NOTE | 2020-10-31 15:42 | NUR ---
CHART PACK WITH CLINICALS, ORDERS, RX AND PASSR CLOSED AND PLACED IN PATIENTS CHART TO GO WITH PATIENT TOMORROW. COPIES TO CHART. STAFF UPDATED.
--- NOTE | 2020-10-31 16:24 | NUR ---
SWABBED BOTH NARES FOR RAPID COVID TEST
--- NOTE | 2020-10-31 16:30 | NUR ---
THIS RN DISCUSSED KCL LEVEL WITH DR. MONTSERRAT ESTEBAN FOR IV FLUID.
--- NOTE | 2020-10-31 17:54 | NUR ---
PATIENT IN CHAIR DRINKING ON ENSURE. FRESH WATER GIVEN. VITALS AND I&O'S CHARTED. CALL LIGHT IN REACH. NO FURTHER NEEDS AT THIS TIME.
--- NOTE | 2020-10-31 18:19 | NUR ---
ASKED BY NURSING PATIENT SUPPORT SPECIALIST TO COME TO NURSES STATION. SHE AND SHADY ZHU PATIENT BULK MATERIALS HANDLING PLANT OPERATOR AND CHARGE NURSE DISCUSSING THAT PATIENT SUPPORT SPECIALIST WAS CALLED BY PATIENTS DAUGHTER AND AND THEY HAVE CONCERNS AND ARE REFUSING HIS DISCHARGE TOMORROW TO REHAB. WE MET IN CLOSED PRIVATE ROOM AND THEY WERE CALLED BACK AND SPEAKER PHONE WAS USED TO ADDRESS THEIR CONCERNS. DAUGHTER STATES SHE FEELS IT IS NOT SAFE FOR HIM TO DISCHARGE HOME BECAUSE HE WILL "DECOMPENSATE". SHE STATES HER MOTHER WAS PUSHED INTO DISCHARGING TO REHAB. RUBEN FEELS THEY WERE PUSHED INTO REHAB. SHE STATES THEY WANT OPTIONS OF GOING HOME. I SPOKE WITH THEM, GEOFF WAS ALSO ON THE SPEAKER. DISCUSSED THAT OF COURSE IF SHE HAS CHANGED HER MIND THAT THEY CAN CANCEL HIS REHAB STAY. WE DISCUSSED THAT THE RISK OF THIS IS LOOSING THE ROOM THERE IF THEY DECIDE LATER HE NEEDS IT. WE DISCUSSED THAT HE IS STABLE AND CAN BE DISCHARGED TO SNF ALL THAT IS LEFT FOR HIS NEED IS A FEW DAYS ANTIBIOTICS THAT CAN BE GIVEN BY SNF NURSES AND CONTINUE THERAPY FOR STRENGTHENING TO BE SAFE AT HOME. DISCUSSED THAT WAS THE ONE WHO CALLED FACILITY AND REQUESTED A STAY THERE AND THAT IS WHY CHART ETC. WAS SENT AND WE WORKED WITH HER AND PATIENT THIS WAS THEIR DECISION. EXPLAINED THAT THERE IS NOT RIGHT AND WRONG AND IT IS THEIR DECISION. WE ARE JUST HERE TO HELP THEM WITH THE INFORMATION AND OPTIONS AVAILABLE AND SUPPORT FOR WHAT THEY DECIDE. DAUGHTER WANTS TO WAIT UNTIL ANTIBIOTIC IS DONE IN TWO DAYS TO SEE IF HE NEEDS REHAB OR WHAT CAN BE ARRANGED AT HOME. EXPLAINED THAT WE NEED A PLAN BEFORE TO START PROCESS OF WHAT IS NEEDED WHEN DISCHARGE HAPPENS. DR WEBSTER STATES THAT WE CAN FINISH ANTIBIOTIC HERE IF THEY ARE GOING HOME. BUT THAT AT THAT POINT HE CAN BE DISCHARGED HE HAS BEEN MEDICALLY STABLE OTHERWISE. DAUGHTER STATES THEY WANT TO HIRE HELPING HANDS. I EXPRESSED THAT THEY CALL THEM [facility] IF THIS IS THE CASE, IT TAKES A FEW DAYS TO SET THIS UP. DISCUSSED WITH THAT SHE FELT AND EXPRESSED SHE CANNOT CARE FOR PATIENT ALONE AND OTHER FAMILY MEMBERS WORK AND CANNOT BE THERE AROUND THE CLOCK AND HER CONCERNS OF THIS. GEOFF AGREED THIS WAS TRUE. SHE IS VERY SCARED THAT PATIENT WILL BE ALONE AND SHE CANNOT VISIT AND HE COULD HAVE PROBLEMS. WE EXPRESSED TO HER THAT ALL FAMILIES ARE HAVING PROBLEMS WITH THIS DUE TO COVID VISITING RESTRICTIONS AT FACILITIES. SHE ASKED IF HE WENT THERE IF HE COULD LEAVE. EXPLAINED HE IS NOT HELD THERE, HE CAN DECIDE TO LEAVE ANYTIME. ALSO DISCUSSED THAT IF THEY DO CHOOSE TO TAKE HIM HOME, THEY HAVE 30 DAYS TO CHANGE THEIR MINDS IF HE FAILS AT HOME THAT MEDICARE STATES THEY WILL COVER SNF BASED ON RECENT STAY. DID EXPLAIN THAT AT THAT TIME HOSPITAL CANNOT ARRANGE THE ADMIT THAT THEY WILL HAVE TO GO THROUGH PCP OFFICE. ALSO EXPLAINED THAT THERE IS NOT A QUARANTEE THERE WILL BE ROOM AVAILABLE AT FIRST CHOICE OF SNF BY THEN. DR WEBSTER DID SPEAK WITH THEM THAT DOING THERAPY AT HOME IS NOT INTENSE REHAB CENTER. THAT HE COULD WEAKEN IF NOT CONTINUING MORE ACTIVE THERAPY. I DISCUSSED HOME HEALTH THERAPY IS 1-3 DAYS A WEEK FOR AN HOUR COMPARED WITH DAILY THERAPY AT SNF. AND DAUGHTER ASKED QUESTIONS WHICH WERE ANSWERED. THEY ASKED IF THEY CAN DECIDE IN AM. I EXPLAINED OF COURSE, BUT THAT HE WAS SCHEDULED TO LEAVE EARLY, AND IF WE CALL AND CANCEL HE MIGHT LOOSE ROOM. CALL WAS ENDED AFTER ANSWERING ALL THEIR QUESTIONS. THEY STATE THEY WANT TO DISCUSS WITH ANOTHER SIBLING ROBERT AND THEY WILL CALL NURSES STATION BY TOMORROW MORNING.
--- NOTE | 2020-10-31 19:00 | NUR ---
DAUGHTER DARCY AND CALLED BACK TO FLOOR TO REPORT THEY HAVE DECIDED TO STILL DISSCHARGE PT TO [facility] PREVIOUSLY PLANNED. THAT THE FAMILY TOGETHER CAME UP WITH THIS DECISION. DAUGHTER AND WITH NO QUESTIONS. ; REPROTS SHE WILL BE HER IN THE MORNING BEFORE DISCHARGE AND DAUGHTERS WILL FOLLOW PT OVER WITH AUGUSTINE ALMEIDA
--- NOTE | 2020-10-31 19:47 | NUR ---
REPORT RECEIVED FROM DAY SHIFT RN. PT RESTING IN BED WITH EYES. RESPIRATIONS EVEN AND UNLABORED. NOT DISTURBED AT THIS TIME. IVF INFUSING. BED ALARM FOR SAFETY. WHITE BOARD UPDATED. CALL LIGHT IN REACH.
--- NOTE | 2020-10-31 20:41 | NUR ---
CALL LIGHT ANSWERED. PT UP TO BR WITH MINIMAL SBA TO VOID. GAIT STEADY. BACK TO BED, CABRERA WELL. ASSESSMENT COMPLETE. JAUNDICE NOTED. EDEMA IN BLE NOTED. BLE ELEVATED. PT DENIES PAIN OR NAUSEA. SCHEDULED MEDS ADMINISTERED PER EMAR. WARM BLANKETS PROVIDED. BED ALARM FOR SAFETY. CALL LIGHT IN HAND.
--- NOTE | 2020-10-31 23:49 | NUR ---
PT RESTING IN BED WITH EYES CLOSED, NAD. IVF INFUSING PER ORDER.
--- NOTE | 2020-11-01 00:50 | NUR ---
IVF COMPLETE. PT RESTING WITH EYES CLOSED. RESPIRATIONS EVEN AND UNLABORED. BED ALARM FOR SAFETY. CALL LIGHT IN REACH.
--- NOTE | 2020-11-01 03:36 | NUR ---
PT RESTING IN BED WITH EYES CLOSED, NAD.
--- NOTE | 2020-11-01 05:55 | NUR ---
CALL LIGHT ANSWERED. PT UP TO BR WITH MINIMAL SBA TO VOID. GAIT STEADY. DAILY WEIGHT OBTAINED. BACK TO BED, CABRERA WELL. ASSESSMENT COMPLETE. PT DENIES PAIN OR NAUSEA. FRESH WATER PROVIDED. BED ALARM ON. CALL LIGHT IN HAND.
--- NOTE | 2020-11-01 07:33 | NUR ---
this rn received report from edgar willett. pt appears to be resting at this time with respirations noted
--- NOTE | 2020-11-01 09:34 | NUR ---
PT IS SITTING UP IN CAIR. MORNING CARE IS DONE. CREAM OF WEAT UPSET STOMACHE SO ENSURE WAS GIVEN. IS IN ROOM. LINENS WERE CNANGED. CALL LIGHT IS IN REACH. NO FURTHER NEEDS AT THIS TIME.
--- NOTE | 2020-11-01 10:56 | NUR ---
THIS RN CALLED REPORT TO FRANCY VO TO CHARGE NURSE NATA. ALL QUESTIONS ANSWERED TO THE BEST OF THIS RNS ABILITY
--- NOTE | 2020-11-01 11:00 | NUR ---
PT ALERT, ORIENTED AND SITTING IN CHAIR WITH GEOFF AT HIS SIDE. PT IS PREPARING TO GO TO SNF THIS AM. GAVE ENCOURAGEMENT-GEOFF EXPRESSE CONCERN THAT SHE WILL NOT BE ABLE TO VISIT PT IN PERSON. ACKNOWLEDGED HER CONCERN AND GAVE OPTIONS FOR VISITING. THIS HAS BEEN A DIFFICULT DECISION FOR THE FAMILY HAD PRAYER WITH BOTH AND GAVE BLESSING. WILL FOLLOW
== END 2020-11-01 10:20 | DRG 871 ==
LOC: ED 14:00 → MS 17:46
PROVIDERS: ADMIT Internal Medicine; ATTEND Internal Medicine
PROC: 05H733Z Insertion of Infusion Device into Right Axillary Vein, Percutaneous Approach (ICD-10-PCS; principal; 2020-10-20 16:00)
DX: A41.52 Sepsis due to Pseudomonas (principal); K85.80 Other acute pancreatitis without necrosis or infection; I50.23 Acute on chronic systolic (congestive) heart failure; K83.1 Obstruction of bile duct; K83.09 Other cholangitis; Z16.35 Resistance to multiple antimicrobial drugs; K86.1 Other chronic pancreatitis; I13.0 Hypertensive heart and chronic kidney disease with heart failure and stage 1 through stage 4 chronic kidney disease, or unspecified chronic kidney disease; E87.1 Hypo-osmolality and hyponatremia; N17.9 Acute kidney failure, unspecified; E46 Unspecified protein-calorie malnutrition; Z20.822 Contact with and (suspected) exposure to COVID-19; R65.20 Severe sepsis without septic shock; N18.2 Chronic kidney disease, stage 2 (mild); I25.118 Atherosclerotic heart disease of native coronary artery with other forms of angina pectoris; R62.7 Adult failure to thrive; R26.89 Other abnormalities of gait and mobility; T36.0X5A Adverse effect of penicillins, initial encounter; K86.89 Other specified diseases of pancreas; F39 Unspecified mood [affective] disorder; M06.9 Rheumatoid arthritis, unspecified; D64.9 Anemia, unspecified; K21.00 Gastro-esophageal reflux disease with esophagitis, without bleeding; Z66 Do not resuscitate; I25.2 Old myocardial infarction; Z85.038 Personal history of other malignant neoplasm of large intestine; Z88.8 Allergy status to other drugs, medicaments and biological substances; Z95.1 Presence of aortocoronary bypass graft; Z79.899 Other long term (current) drug therapy; Z79.02 Long term (current) use of antithrombotics/antiplatelets; Z79.52 Long term (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 steroids; Z68.25 Body mass index [BMI] 25.0-25.9, adult
CPT/HCPCS: 36415; 36569; 71045; 71046; 74176; 80048; 80053; 80069; 80076; 81001; 82565; 82570; 82977; 83605; 83615; 83690; 83735; 83880; 83930; 83935; 84300; 84484; 84520; 84540; 85025; 85610; 87040; 87077; 87186; 89051; 93005; 93010; 93306; 94760; 96374; 97110; 97112; 97116; 97163; 97165; 99285-25; C9113; C9803; J0692; J1650; J1720; J1940; J2405; J2543; J3475; J3480; J7030; J7042; J7060; J7512; P9047; U0003

== ENCOUNTER 2020-12-17 17:52 | Emergency (ER) | payer MEDICARE, BC ==
[~2020-12-17] VITALS: Ht 177.8 cm; Wt 73.0 kg
[~2020-12-17 17:52] MED LIST changes: +AZULFIDINE500 MG PO; +CREON DR 6,0001 EACH PO; +CULTURELLE1 EAC1 PO; +HYDROXYZINE HCL25 MG PO; +ISOSORBIDE MON120 MG PO; +ISOSORBIDE MONO30 MG PO; +NITROGLYCERIN0.4 MG SL; +OXYCODONE HCL5 MG PO; +PANTOPRAZOLE SO20 MG PO; +SODIUM CHLORID IV; +TRAZODONE HCL50 MG PO; +TYLENOL325 MG PO; +VENTOLIN HFA18 GM INH; +VITAMIN C500 M1 PO; +ZENPEP DR 25,01 EAC1 PO; +ZOLPIDEM TARTRA10 MG PO
--- OUTSIDE RECORDS SUMMARY | 2020-12-17 17:54 | XMS ---
PreManage Notification: BAYRON ELLER Security Winder Operator Events No recent Security Events currently on file CRITERIA MET - History of Sepsis Dx CARE PROVIDERS ALEX Jasso [facility] Current PHONE: [phone] STANISLAW HARPER Family Medicine 09/26/2020-Current PHONE: [phone] Mara BAIRD Nurse Practitioner: Family Current PHONE: [phone] Duane has no Care Guidelines for this patient. E.D. VISIT COUNT (12 MO.) 1 [facility] [address] [facility] TOTAL 6 NOTE: Visits indicate total known visits. ED/UCC VISIT TRACKING (12 MO.) 12/17/2020 17:53 [facility] TYPE: Emergency COMPLAINT: - WEAKNESS, CONFUSION 10/16/2020 14:01 [facility] [place] TYPE: Emergency COMPLAINT: - WEAKNESS 10/03/2020 08:06 [facility] TYPE: Emergency DIAGNOSES: 39567. WEAKNESS, JAUNDICE, PANCREATIC MASS CONCERN 32508. Other disorders of bilirubin metabolism . Other specified diseases of pancreas . Elevation of levels of liver transaminase levels 09/25/2020 10:45 [facility] TYPE: Emergency COMPLAINT: - WEAKNESS, ABD PAIN, POSSIBLE MEDICATION REACTION DIAGNOSES: - MCC (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 steroids - Old myocardial infarction - Elevation of levels of liver transaminase levels - Other specified diseases of pancreas - Elevation of levels of liver transaminase levels - Localized swelling, mass and lump, head - Essential (primary) hypertension - Personal history of other malignant neoplasm of large intestine - Other specified diseases of pancreas - Other disorders of bilirubin metabolism - Other manager long term care (current) drug therapy 04/22/2020 09:11 [facility] TYPE: Emergency COMPLAINT: - FALL, ARM PAIN DIAGNOSES: - Other abnormalities of heart beat - MCC (current) use of anticoagulants - Essential (primary) hypertension - Unspecified fall, initial encounter - Contusion of left shoulder, initial encounter - Other manager long term care (current) drug therapy - Pain in left shoulder 02/05/2020 21:24 [facility] TYPE: Emergency COMPLAINT: - WEAKNESS DIAGNOSES: - Vestibular neuronitis, unspecified ear - Essential (primary) hypertension - Other group home (current) drug therapy - Weakness INPATIENT VISIT TRACKING (12 MO.) 10/16/2020 17:46 [facility] TYPE: Medical Surgical COMPLAINT: - WEAKNESS DIAGNOSES: - Other manager long term care (current) drug therapy - MCC (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 steroids - Other abnormalities of gait and mobility - Do not resuscitate - Acute kidney failure, unspecified - Adverse effect of penicillins, initial encounter - Other specified diseases of pancreas - Other specified diseases of pancreas - Chronic kidney disease, stage 2 (mild) - Resistance to multiple antimicrobial drugs - Other cholangitis - Severe sepsis without septic shock - Adult failure to thrive - Gastro-esophageal reflux disease with esophagitis, without bleeding - Atherosclerotic heart disease of [place] coronary artery with other forms of angina pectoris - MCC (current) use of antithrombotics/antiplatelets - Unspecified protein-calorie malnutrition - Hypo-osmolality and hyponatremia - Chronic kidney disease, stage 2 (mild) - Other abnormalities of gait and mobility - Other group home (current) drug therapy - Resistance to multiple antimicrobial drugs - Personal history of other malignant neoplasm of large intestine - Adverse effect of penicillins, initial encounter - Hypertensive heart and chronic kidney disease with heart failure and stage 1 through stage 4 chronic kidney disease, or unspecified chronic kidney disease - Hypertensive heart and chronic kidney disease with heart failure and stage 1 through stage 4 chronic kidney disease, or unspecified chronic kidney disease - Hypo-osmolality and hyponatremia - Other acute pancreatitis without necrosis or infection - Obstruction of bile duct - Allergy status to other drugs, medicaments and biological substances - termite treater (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 steroids - Other cholangitis - Do not resuscitate - Unspecified protein-calorie malnutrition - Other acute pancreatitis without necrosis or infection - Other chronic pancreatitis - Allergy status to other drugs, medicaments and biological substances - Anemia, unspecified - MCC (current) use of antithrombotics/antiplatelets - Personal history of other malignant neoplasm of large intestine - Acute kidney failure, unspecified - Body mass index [BMI] 25.0-25.9, adult - Unspecified mood [affective] disorder - Old myocardial infarction - Unspecified mood [affective] disorder - Obstruction of bile duct - Rheumatoid arthritis, unspecified - Anemia, unspecified - Old myocardial infarction - Acute on chronic systolic (congestive) heart failure - Presence of aortocoronary bypass graft - Acute on chronic systolic (congestive) heart failure - Presence of aortocoronary bypass graft - Adult failure to thrive - Gastro-esophageal reflux disease with esophagitis, without bleeding - Sepsis due to Pseudomonas - Acute pancreatitis without necrosis or infection, unspecified - Other chronic pancreatitis - Atherosclerotic heart disease of [place] coronary artery with other forms of angina pectoris - Sepsis due to Pseudomonas - Rheumatoid arthritis, unspecified - Severe sepsis without septic shock - Body mass index [BMI] 25.0-25.9, adult 10/03/2020 08:06 [facility] TYPE: General Medicine DIAGNOSES: 16544. Other specified diseases of pancreas . Other disorders of bilirubin metabolism 10252. Elevation of levels of liver transaminase levels 93276. Unspecified jaundice [email or web address]
== END 2020-12-17 20:55 | disposition home or self-care (01) ==
LOC: ED 17:52
DX: R41.0 Disorientation, unspecified (principal); I10 Essential (primary) hypertension; I25.2 Old myocardial infarction; Z88.8 Allergy status to other drugs, medicaments and biological substances; Z79.899 Other long term (current) drug therapy
CPT/HCPCS: 71045; 80053; 81001; 82607; 82746; 83690; 84443; 85025; 99285-25; J7030

== ENCOUNTER 2021-01-24 07:16 | Inpatient (IN) | payer MEDICARE, BC ==
[~2021-01-24] VITALS: Ht 177.8 cm; Wt 73.0 kg
--- OUTSIDE RECORDS SUMMARY | 2021-01-24 07:20 | XMS ---
PreManage Notification: BAYRON ELLER Security Associate Team Physician Events No recent Security Events currently on file CRITERIA MET - History of Sepsis Dx CARE PROVIDERS ALEX Jasso [facility] Current PHONE: [phone] STANISLAW HARPER Family Medicine 09/26/2020-Current PHONE: [phone] Mara BAIRD Nurse Practitioner: Family Current PHONE: [phone] Duane has no Care Guidelines for this patient. E.D. VISIT COUNT (12 MO.) 1 [facility] [address] [facility] TOTAL 7 NOTE: Visits indicate total known visits. ED/UCC VISIT TRACKING (12 MO.) 01/24/2021 07:16 [facility] TYPE: Emergency COMPLAINT: - FEVER 12/17/2020 17:53 [facility] TYPE: Emergency COMPLAINT: - WEAKNESS, CONFUSION DIAGNOSES: - Allergy status to other drugs, medicaments and biological substances - Essential (primary) hypertension - Other superintendent terminal (current) drug therapy - Disorientation, unspecified - Old myocardial infarction 10/16/2020 14:01 [facility] TYPE: Emergency COMPLAINT: - WEAKNESS 10/03/2020 08:06 [facility] TYPE: Emergency DIAGNOSES: 97959. WEAKNESS, JAUNDICE, PANCREATIC MASS CONCERN 27789. Other disorders of bilirubin metabolism 81195. Other specified diseases of pancreas 83552. Elevation of levels of liver transaminase levels 09/25/2020 10:45 [facility] TYPE: Emergency COMPLAINT: - WEAKNESS, ABD PAIN, POSSIBLE MEDICATION REACTION DIAGNOSES: - watermaster (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 steroids - Old [...] Other disorders of bilirubin metabolism - Other shelter (current) drug therapy 04/22/2020 09:11 [facility] TYPE: Emergency COMPLAINT: - FALL, ARM PAIN DIAGNOSES: - Other abnormalities of heart beat - penitentiary (current) use of anticoagulants - Essential (primary) hypertension - Unspecified fall, initial encounter - Contusion of left shoulder, initial encounter - Other shelter (current) drug therapy - Pain in left shoulder 02/05/2020 21:24 [facility] TYPE: Emergency COMPLAINT: - WEAKNESS DIAGNOSES: - Vestibular neuronitis, unspecified ear - Essential (primary) hypertension - Other shelter (current) drug therapy - Weakness INPATIENT VISIT TRACKING (12 MO.) 10/16/2020 17:46 [facility] TYPE: Medical Surgical COMPLAINT: - WEAKNESS DIAGNOSES: - Other superintendent terminal (current) drug therapy - penitentiary (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 steroids - Other [...] without bleeding - Atherosclerotic heart disease of [place] coronary artery with other forms of angina pectoris - penitentiary (current) use of antithrombotics/antiplatelets - Unspecified protein-calorie malnutrition - Hypo-osmolality and hyponatremia - Chronic kidney disease, stage 2 (mild) - Other abnormalities of gait and mobility - Other superintendent terminal (current) drug therapy - Resistance to multiple [...] other drugs, medicaments and biological substances - penitentiary (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 steroids - Other cholangitis - Do not resuscitate - Unspecified protein-calorie malnutrition - Other acute pancreatitis without necrosis or infection - Other chronic pancreatitis - Allergy status to other drugs, medicaments and biological substances - Anemia, unspecified - penitentiary (current) use of antithrombotics/antiplatelets - Personal history [...] chronic pancreatitis - Atherosclerotic heart disease of [place] coronary artery with other forms of angina pectoris - Sepsis due to Pseudomonas - Rheumatoid arthritis, unspecified - Severe sepsis without septic shock - Body mass index [BMI] 25.0-25.9, adult 10/03/2020 08:06 [facility] TYPE: General Medicine DIAGNOSES: . Other specified diseases of pancreas . Other disorders of bilirubin metabolism . Elevation of levels of liver transaminase levels . Unspecified jaundice [email or web address]
[2021-01-24] MEDS ORDERED: ONDANSETRON HCL4 MG PO (08:01)
[2021-01-24] MEDS ORDERED: AZITHROMYCIN500 MG PO (08:01)
[2021-01-24] MEDS ORDERED: PANTOPRAZOLE SO20 MG PO (08:02)
[2021-01-24] MEDS ORDERED: ISOSORBIDE MONO60 MG PO (08:03)
[2021-01-24] MEDS ORDERED: CEFUROXIME500 MG PO (11:52)
[2021-01-24] MEDS ORDERED: CREON DR 6,0001 EACH PO (11:55)
[2021-01-24] MEDS ORDERED: MEGESTROL ACETA40 MG PO (11:56)
--- NOTE | 2021-01-24 12:00 | NUR ---
PT ARRIVED TO CCU UNIT VIA JULIO Terry/ CARMELLA BUSINESS SYSTEMS ANALYST. PT ON 2 L NC SATING 100%. LUNG SOUNDS ARE CLEAR, DIMINISHED IN BASES. RR 16, PT DENIES SOB. A SHALLOW BREATHER AT TIMES. PT DENIES PAIN OR NAUSEA AT THIS TIME. GRACY IN ROOM. PT IS NOT A GOOD HISTORIAN FOR INFORMATION REGARDING HEALTHCARE, GRACY PRESENT AT BEDSIDE AND IS KNOWLEDGABLE IN PT HX AND CARE. PT IS ALERT AND ORIENTED X4. APPEARS THIN AND MALNOURISHED, HAS THICK CUSHION UNDER COCCYX TO PREVENT PRESSURE INJURY. NO REDNESS OR SKIN BREAKDOWN NOTED. PT HAS BEEN UNABLE TO VOID SINCE ARRIVAL. DENIES FEELING NEED TO URINATE. PT HAS BRUISING BUE AND VERY DRY SKIN, REPORTS RELATED TO PREDNISONE. SCHEDULED MEDICATIONS GIVEN. PT TAKES PILLS ONE AT A TIME. STATES HE NEEDS SUPERVISION WHILE EATING, "OTHERWISE HE CHOKES ON IT." PT IS TOLERATING ENSURE WELL AND IS NOW EATING YOGURT. LR INFUSING INTO LAC 20 G IV @ 125 MLS/HR. CALL LIGHT IN REACH. NO OTHER NEEDS AT THIS TIME.
--- NOTE | 2021-01-24 13:37 | NUR ---
Patient amb to restroom with walker. 02 sats 94% on RA after amb. Patient 95% RA currently.
--- NOTE | 2021-01-24 15:00 | NUR ---
RT IN TO SEE PT. GIVEN EDUCATION ON INCENTIVE SPIROMETER. PT SATING 100% 1 L NC, TITRATED TO ROOM AIR.
--- NOTE | 2021-01-24 15:26 | EKG ---
[facility] [address] [place] [address] Signed Normal sinus rhythm with 1st degree AV block Septal infarct , age undetermined Abnormal ECG When compared with ECG of 16-OCT-2020 14:28, QRS duration has decreased Septal infarct is now present Nonspecific T wave abnormality, improved in Inferior leads Nonspecific T wave abnormality no longer evident in Lateral leads QT has shortened Confirmed by BARBARA POMPA MD ([id number]) on 01/24/2021 3:26:32 PM Electronically Signed By: BARBARA POMPA MD 01/24/21 1526 PATIENT NAME: BAYRON ELLER Electrocardiogram DATE OF : 31 PHYSICIAN: BARBARA POMPA MD REPORT #: [id number] REPORT IS CONFIDENTIAL AND NOT TO BE RELEASED WITHOUT AUTHORIZATION
--- NOTE | 2021-01-24 15:47 | NUR ---
Update from RN. Will see pt in the am.
--- NOTE | 2021-01-24 17:00 | NUR ---
PT HAD EPISODE OF NAUSEA AFTER DINNER TRAY ARRIVAL. COMPLAINING THAT SMELL OF FOOD IS "TOO MUCH" AND UNABLE TO EAT. AND PT STATE "THAT'S WHY WE ONLY DO THE ENSURES AND YOGURT, IT'S THE ONLY THINGS THAT DON'T MAKE HIM NAUSEOUS". TRAY TAKEN OUT OF ROOM AND ENSURE OFFERED BUT PT REQUESTING TO DRINK ENSURE "LATER, WHEN I'M NOT NAUSEOUS".
--- NOTE | 2021-01-24 17:30 | NUR ---
PT STILL NAUSEOUS AND VOMITED 100 MLS BILE COLORED EMESIS, STATES "I CAN'T GET THAT SMELL OUT OF MY NOSE." 4 MG IV ZOFRAN GIVEN. EMESIS HAS SUBSIDED. REMAINS AT BEDSIDE.
--- NOTE | 2021-01-24 21:42 | NUR ---
2100 PATIENT'S ORAL TEMP ELEVATED. REPORTED TO . ORDERS FOR REPEAT BLOOD CULTURES RECEIVED. LAB CONTACTED. PATIENT IS AAOX4. REPORTS 4/10 GENERAL PAIN AND REQUEST A TYLENOL. DENIES FEELING FEVERISH. SKIN IS WARM TO THE TOUCH AND SLIGHTLY DIAPHORETIC. EXTRA BLANKETS REMOVED. PATIENT ON 2L NC FOR SLEEP. LUNG SOUNDS ARE CLEAR IN THE UPPER LOBES MARCUS. WITH COARSE IN RLL AND CRACKLES IN LLL. PATIENT USES IS X5. NEW IV START DONE AND ONE SET BC DRAWN. LAB IN FOR SECOND SET. PATIENT TOLERATED WELL. IV FLUIDS AND ABX INFUSING IN NEW SITE. PRN TYLENOL GIVEN WITH HS MEDS. PATIENT WAS ABLE TO SWALLOW BUT COUGHED SLIGHTLY AFTER EACH SWALLOW. ASSISTED PATIENT TO REPOSITION. COCCYX PILLOW IN PLACE, PATIENT HAS MOVED IT TO HALF UNDER HIS BUTT AND HALF UNDER HIS TIGHS AND WANTS TO KEEP IT THERE. HOB ELEVATED TO 45 DEGREES. PATIENT ASSISTED WITH PM CARES. DENIES NEED TO VOID. DEMONTRATED ABILITY TO USE CALL LIGHT. LIGHTS DIMMED.
--- NOTE | 2021-01-24 23:32 | NUR ---
PATIENT ATTEMPTED TO EXIT THE BED WITHOUT CALLING. BED ALARM ALERTED STAFF. PATIENT UP TO THE BATHROOM WITH SBA AND FWW. PATIENT IS STEADY BUT DOES NOT USE WALKER APPROPRIATELY. PATIENT VOIDED LARGE AMOUNT. LINENS ON BED AND GOWN CHANGED. PATIENT HAS BEEN DIAPHORETIC. ORAL TEMP WNL. IV FLUIDS AND ABX INFUSING PER ORDER, SITE WNL. PATIENT RETURNED TO BED. COCCYX PILLOW IN PLACE PER PATIENT PREFERENCE. HOB ELEAVTED. DISCUSSED CALL LIGHT WITH PATIENT, SEEMS HE FORGOT TO CALL OR COULDN'T FIND THE CALL LIGHT. PLACED IN PATIENT'S HAND AND SHOWED PATIENT THE SIDE RAIL CALL LIGHT. PATIENT AGREES TO CALL NEXT TIME. BED ALARM ACTIVE FOR SAFETY.
--- NOTE | 2021-01-25 05:10 | NUR ---
LAB IN FOR MORNING DRAW. PATIENT WAKES EASILY. IS PLESANT AND DENIES ANY CONCERNS. VS STABLE. PATIENT'S LUNG SOUNDS ARE CLEAR IN THE UPPER LOBES, DIM IN THE BASES. IV FLUIDS PER ORDER, SITE WNL. PATIENT AGREES TO HAVE CREAM OF WHEAT FOR BREAKFAST BUT IS NOT READY FOR IT YET. DENIES BATHROOM NEEDS OR ANYTHING TO DRINK. REMINDED PATIENT TO USE CALL LIGHT.
--- NOTE | 2021-01-25 06:18 | NUR ---
PATIENT ATTEMPT TO EXIT BED WITHOUT USING CALL LIGHT. BED ALARM SOUNDS. PATIENT IS SMILING WHEN RN ENTERS THE ROOM AND STATES "I KNEW I WAS IN TROUBLE WHEN I HEARD THAT". PATIENT ADMITS HE FORGOT ABOUT THE CALL LIGHT AGAIN. ASSISTED PATIENT OUT OF BED. PATIENT AMBULATED INDEPENDENTLY WITH FWW TO THE BATHROOM. VOIDED 800MLS URINE. PATIENT ADMIRING THE WINDOW VIEW. CHAIR ALERT PLACED IN RECLINER AND CHAIR TURNED TO LOOK OUT THE WINDOW. PATIENT'S COCCYS PILLOW IN PLACE. PATIENT REPORTS BEING COMFORTABLE. CALL LIGHT ON LAP. IV FLUIDS PER ORDER, SITE WNL.
--- NOTE | 2021-01-25 07:30 | NUR ---
PATIENT SHIFT REPORT RECIEVED FROM WEAVING INSPECTOR RN. PATIENT RESTING IN THE CHAIR WITH CHAIR ALARM ON. JARED STUDENT NURSE WILL BE TAKING CARE OF PATIENT WITH THIS RN. CALL LIGHT IN REACH. WILL CONTINUE TO CLOSELY MONITOR.
--- NOTE | 2021-01-25 07:32 | NUR ---
RECIEVED REPORT FROM TUNNEL ELASTIC OPERATOR LOCKSTITCH. PT SITTINF IN CHAIR FACING THE WINDOW. NO CONCERNS AT THIS TIME. CALL LIGHT WITH IN REACH. LEGS ELEVATED. WILL MONITOR CLOSELY.
--- NOTE | 2021-01-25 09:03 | NUR ---
PT SITTING IN CHAIR FACING THE WINDOW WITH AT HIS SIDE. MEDICATIONS ADMINISTERED. ASSESSMENT COMPLETE. SPEECH THERAPIST WORKING WITH PATIENT TO TEST SWALLOWING ABILITIES. ENSURE AND YOGURT GIVEN WITH MEDS. O2 IN UPPER 90S ON ROOM AIR WITHOUT COMPLICATION. MOIST COUGH NONPRODUCTIVE.AWAKE ORIENTED AND ALERT. NO OTHER CONCERNS. CALL LIGHT WITHIN REACH. WILL MONITOR CLOSELY FOR CHANGES.
--- NOTE | 2021-01-25 11:30 | NUR ---
ANSWERED CALL LIGHT PPT REQUESTED WARM BLANKET. TEMPERATURE IN ROOM ADJUSTED TO 72. PT REPORTED NO OTHER CONCERNS AT THIS TIME. PT SITTING IN CHAIR FACING THE WINDOW. AT SIDE. WILL CONTINUE TO MONITOR CLOSELY. CALL LIGHT WITHIN REACH,
--- NOTE | 2021-01-25 12:26 | NUR ---
PT ASSESSMENT COMPLETE. PT TRASFERRED TO A HOUSE CONVIENENCE. PT SITTING IN CHAIR FACING WINDOW WITH RIGHT NEXT TO HIM. AWAKE AND ORIENTED. LUNG SOUNDS CLEAR IN UPPER LOBES AND DIMINISHED IN UPPER. MEDICATIONS GIVEN PER NOV. IV ANTIBIOTIC FINISHED AND NOW RUNNING ONLY ON FLUIDS. REMOVED COBAN ON LEFT ARM AND WRIST FROM PREVIOUS BLOOD DRAWS. PT DISTENDED IN ABD AND PT REPORTS "THIS IS NORMAL" NO OTHER CONCERNS AT THIS TIME. CALL LIGHT WITHIN REACH. WILL CONTINUE TO MONITOR FOR CHANGES.
--- NOTE | 2021-01-25 12:30 | NUR ---
Spoke with as pt is sleeping. Pt does awaken mid conversation. Pt lives in [place] with his in a 1 story home. He uses a walk er or a cane, raised toilet seat, and bedrail. Per , pts does well walking in the home without device. denies financial issues. Plan is for dc to home when pt is medically cleared.
--- NOTE | 2021-01-25 14:10 | NUR ---
PT SITTING IN CHAIR, LOOKING OUT WINDOW. GEOFF BY HIS SIDE. PT IS PLEASANT, ALERT AND SEEMS TO ENJOY CONVERSATION. GEOFF APPEARS VERY TIRED, TRYING TO STAY POSITIVE. GAVE ENCOURAGEMENT, BOTH REQUESTED PRAYER THAT I CONTACT ONE OF THEIR PASTORS. WILL MAKE CONTACT. LEFT G.POST WILL FOLLOW
--- NOTE | 2021-01-25 14:41 | NUR ---
PT ASLEEP IN CHAIR FACING THE WINDOW. LEG ELEVATED. BLANKETS ON PT. LAYING ON COUCH WITH EYES CLOSED. CALL LIGHT WITHIN REACH. WILL CONTINUE TO MONITOR.
--- NOTE | 2021-01-25 14:50 | NUR ---
IMAGING IN CONTACT WITH SPEECH THERAPY AND PATIENT WILL HAVE SWALLOW STUDY DONE TOMORROW AT 2PM.
--- NOTE | 2021-01-25 16:27 | NUR ---
PT SITTING IN CHAIR. BY SIDE. ASSISTED PT TO THE RESTROOM. TOLERATED WELL. CLEAR UPPER QUADRANT LUNG SOUNDS. DIMINISHED LOWER LOBES. NORMAL BOWEL TONES. ASSISTED PT BACK TO CHAIR SBA WITH FWW. ASSITED PT WITH ORAL CARE.CALL LIGHT WITHIN REACH.WILL CONTINUE TO MONITOR CLOSELY. PT REQUESTED A HEATED BLANKET.
--- NOTE | 2021-01-25 17:45 | NUR ---
PATIENT BROUGHT OVER FROM CCU AT THIS TIME + ASSESSMENT pt "Deep" brought over from CCU at this time by Adelia LOBO and Sandra RN. pt alert and oriented to all but exact date (knows month and year). pt assessment complete at this time, lower lobes diminished, pt o2sats 98% on RA. pt denies pain and nausea at this time. pts at bedside and is adament about pt cares: I.S. hourly, cushion for his bottom, and making sure he drinks his Ensures and doesn't order from the kitchen. pt denies further needs at this time. table and call light in reach, at chair side.
--- NOTE | 2021-01-25 17:50 | NUR ---
PT TRANSFERRED TO MED/SURG IN CHAIR. GAVE FULL REPORT TO NURSE SEJAL. RELAYED CONCERNS OF TO RN SEJAL. PT TOLERATED WELL. STILL AT SIDE WITH PT AND NURSE. CHAIR BY THE WINDOW AND RN BY PT. CHAIR ALARM ON. CALL LIGHT WITHIN REACH. NO FURTHER QUESTIONS REPORTED FROM RN AND PT AT THIS TIME.
--- NOTE | 2021-01-25 19:29 | NUR ---
Pt back to bed from chair, bed and chair alarm on. coop. On room air, IVF infusing. no c/o pain, tolerated well 1PA/FWW
--- NOTE | 2021-01-25 20:43 | NUR ---
Pt awakens easily, no c/o pain. on room air, lungs clear, dim at bases, SL LAC field start, IVF infusing RFA, no c/o adverse reactin to IV abx, took meds ell, hob elevated, helps with reposions, urinal at bedside. call light and fluids at hands reach. pleasant and coop.
--- NOTE | 2021-01-25 22:40 | NUR ---
RESTING, EYES CLOSED, HOB ELEVATED TO HIS COMOFRT. BD ALARM ON. CALL LIGHT AT HANDS REACH. FALL AND HIGH RISK FALL PRECAUTIONS IN PLACE
--- NOTE | 2021-01-26 00:41 | NUR ---
Used call light, Up to br, voided, had bm, unable to see as he flushed it right away. Back to bed, tolerated well. 1PA/FWW. no c/opain. took sips of fluids, bed alarm on. hob and leg elevated
--- NOTE | 2021-01-26 02:58 | NUR ---
RESTING, EYES CLOSED, NO DISTRESS. CALL LIGHT AT HNADS REACH, BED ALARM ON. ASPIRATION AND FALL PRECAUTIONS IN PLACE
--- NOTE | 2021-01-26 05:07 | NUR ---
PT HAS SLEPT, SPENT TIME INCHAIR, UP W 1PA/FWW, TOLERATED WELL. FORGETFUL, PLEASANT AND EASILY REORIENTED. VOIDED QS AND HAD BM. IVF INFUSING W/O PROBLEMS. TOLERATING LIQUIDS WELL. PT SCHEDULED FOR MODIFIED BA SWALLOW TEST TODAY. ASPIRATION AND FALL PRECAUTIONS IN PLACE. BED ALARM ON
--- NOTE | 2021-01-26 07:43 | NUR ---
SHIFT REPORT FROM DELMY RINCON INCLUDED: pt overestimates self and attempts to get up alone, bed and chair alarms used. pt calm and cooperative with cares. pt had one BM last night. pts VSS, and had an otherwise uneventful evening. pt currently up to toilet with SBA and FWW, Delmy RN with pt at this time.
--- NOTE | 2021-01-26 08:35 | NUR ---
ASSESSMENT + MED PASS pt assessment complete, VSS. pt reports "feeling better" and that his pain is minimal and only when coughing. pt denies pain and nausea otherwise. pt able to take all morning meds with little difficulty, took 1-2 at a time, many sips of water, reminding him to tuck his chin to prevent aspiration. pt having his breakfast Ensure to drink and fresh water given at this time. pt is alert and oriented to all but the exact date. pt up to chair at this time, with FWW and SBA, pts personal seat cushion on chair, chair alarm on, beside him on couch. pt denies needs at this time, table and call light in reach.
--- NOTE | 2021-01-26 09:30 | NUR ---
PATIENT HAS HAD NO OUTPUT ON THIS SHIFT, HAS NO URGE TO GO, RN NOTIFIED.
--- NOTE | 2021-01-26 10:00 | NUR ---
ROUNDING pt sitting in chair, visiting with at this time. pt denies pain and nausea at this time. pt able to demonstrate proper use of the I.S. to 500 x8 at this time. pt denies needs at this time, table and call light within reach.
--- NOTE | 2021-01-26 11:50 | NUR ---
RESPONDING TO CALL LIGHT pts reports that pt continues to cough without relief. Noa MOORE and Vivian RN to bedside to assist pt. pts cough sounds like he has thick mucous build up that he cannot expectorate on his own. suction used to assist pt with removing the scant amounts that he was able to expectorate. pt states, "this is just awful. I can't go on doing this." pt encouraged using therapeutic communication. pt given acapella and instucted on its use. pt able to demonstrate proper use of the acapella x6. pt coughed up another scant amount and mucous was suctioned from his mouth. pt encouraged to call us if his coughing returns. pts encouraged to call as well. pt in chair, no longer coughing at this time, table and call light within reach. chair alarm on.
--- NOTE | 2021-01-26 11:58 | NUR ---
ANSWERED CALL LIGHT, PATIENT HAVING A COUGHING SPELL, BUT UNPRODUCTIVE. SERGEY POST IN ROOM TO SUCTION PATIENT.
--- NOTE | 2021-01-26 12:11 | NUR ---
PT SLEEPING, HAD A ROUGH NIGHT. GEOFF IN , HAD HER COME OUT TO VISIT. FILM PROCESS OPERATOR EXPRESSED CONCERN TO HOW THIS SEASON OF PT'S HEALTH HAS TAKEN A TOLL ON HER. ENCOURAGED HER TO GO HOME AND REST-WE NEED HER HEALTHY TO HELP CARE FOR PT. SHE ADMITTED HER FAMILY HAD VOICED SIMILIAR CONCERNS. GEOFF FEELS GUILTY WHEN SHE IS NOT HERE AND FEELS THINGS ARE OUT OF HER CONTROL. SHE IS USED TO BEING ABLE TO SET THE TONE AND CAN'T NOW. HAD PRAYER WITH HER AND WILL FOLLOW NEEDED
--- NOTE | 2021-01-26 13:00 | NUR ---
ROUNDING pt and his are still working to finish his Ensure shake at this time. pt denies needs at this time. table and call light within reach.
--- NOTE | 2021-01-26 14:00 | NUR ---
SWALLOW STUDY REFUSED BY PATIENT AND + MD TO BEDSIDE pts shared concerns with ranch hand supervisor Faviola RINCON about the pt going to imaging for a swallow study. she reports that the pt is "too tired right now to go somewhere and do this study", the pt was informed of the procedure and reasons for it, and the pt was unsure. This RN to bedside with mammography technologist to educated pt on the process of this study and the benefits of knowing its results. the pt expressed "I know you are all trying to tell me to do this so it will help get me better, but I am just so tired and I don't know that it"ll make much difference with my age and weakness and everything." the pt and his both verbalized refusal of this swallow study. Dr Day to bedside to consult pt and his on the study. pt and his agree to the study. 1415: pts leaves the room to find this RN, explaining that the pt "just told me to tell you he didn't want to do the swallow test. he doesn't see the point and is too tired." pt in room with , in chair, table and call light in reach.
--- NOTE | 2021-01-26 14:40 | NUR ---
PATIENT DUE TO VOID, ASKED TO TRY URINATING AT THIS TIME pt encouraged to get up to the bathroom at this time. pt has not voided since 0600. pt usually holds his urine for hours and then voids in large amounts, but we need to ensure he is making and voiding urine. pt up to bathroom with FWW at this time. pt denies dizziness with standing and has steady gait to the bathroom. pt able to void 250mls at this time, clear yellow urine. pt back to chair, positioned to comfort. pt in chair, table and call light within reach, chair alarm on.
--- NOTE | 2021-01-26 15:26 | NUR ---
NO CHANGE IN PLAN FOR DISCHARGE.
--- NOTE | 2021-01-26 15:45 | NUR ---
PATIENT WALKING THE HALLS WITH PHYSICAL THERAPIST KENA AT THIS TIME.
--- NOTE | 2021-01-26 16:30 | NUR ---
MED PASS + URINE OUTPUT RELAYED TO MD culver able to take meds as ordered, without difficulty. pt denies pain and nausea at this time. pt encouraged up to bathroom, able to void 100mls clear yellow urine. pt back to chair, repositioned to comfort. pts concerned about his "little urine amount" for the day so far. pts insists that we let the MD know about urine output. MD Day told verbally at this time. No new orders. table and call light in reach.
--- NOTE | 2021-01-26 17:50 | NUR ---
MED PASS + SPEECH THERAPY CONSULT pt working with speech therapy at this time. pt given his creon capsules for the meal they were working through therapy/assessment to eat. pt able to take med without difficulty. pt in chair, with speech therapist Alma. table and call light within reach.
--- NOTE | 2021-01-26 18:33 | NUR ---
PATIENT SITTING UP IN CHAIR, IN ROOM. DINNER ITEMS FROM ON SIDE TABLE. VITALS AND IS&OS CHARTED, CALL LIGHT IN REACH
--- NOTE | 2021-01-26 19:20 | NUR ---
SHIFT REPORT RECEIVED FROM SEJAL RINCON. PT RESTING IN BED. NO NEEDS AT THIS TIME. BED ALARM ON, RAILS UP. CALL LIGHT IN REACH.
--- NOTE | 2021-01-26 20:36 | NUR ---
ASSESSMNET COMPLETEDD. GCS 15, ALERT AND ORIENTED TO PERSON, PLACE AND EVENT. SCHEDULED MEDS PROVIDED. LUNGS CLEAR IN UPPER LOBES, FINE CRACKLES IN LOWER LOBES. ABD SOFT, NONTENDER, PT STATES NORMAL, BOWEL TONES ACTIVE. SCATTERED BRUISING AND ABRASIONS NOTED. LEFT HAND FINGER AMPUTATIONS NOTED TO ALL BUT THUMB, HEALED INJURY. IV WNL, CDI, FLUSHED WELL. CMS INTACT. BLE TRACE EDEMA. EDUCATION PROVIDED CONCERNING I.S., ACCAPELLA, INCREASED FLUID INTAKE, ASPIRATION AND SAFETY. NO OTHER NEEDS AT THIS TIME. CALL LIGHT IN REACH, RAILS UP, BED ALARM ON.
--- NOTE | 2021-01-26 21:14 | NUR ---
PT'S IV ABX WAS COMPLETE. IV IS NOW SL. PT DENIES NEEDS AND CALL LIGHT IS CLOSE. BED ALARM IS ON.
--- NOTE | 2021-01-26 22:59 | NUR ---
BED ALARM SET OFF, PT NEEDED TO GET UP TO THE TOILET, SBA WITH FWW, PT BACK TO BED, ALARM RESET AT THIS TIME, NO FURTHER NEEDS
--- NOTE | 2021-01-27 | NUR ---
PT RESTING IN BED, EYES CLOSED. RR EVEN, UNLABORED. CALL LIGHT IN REACH, RAILS UP, BED ALARM ON.
--- NOTE | 2021-01-27 03:07 | NUR ---
PT'S IV ABX ARE COMPLETE. IV IS NOW SL. PT IS RESTING WITH EYES CLOSED, RR IS EVEN AND NONLABORED. CALL LIGHT IS CLOSE.
--- NOTE | 2021-01-27 04:42 | NUR ---
ASSESSMENT, VS AND I&O COMPLETED. GCS 15, A & O TO PERSON, PLACE, EVENT. LUNGS CLEAR IN UPPER LOBES, CRACKLES IN LOWER LOBES. HEART TONES REGULAR. ABD SOFT, NONTERNDER, BOWEL TONES ACTIVE. CMS INTACT. IV WNL, SL. EDUCATION PROVIDED ON ACAPELLA AND I.S., PT DEMONSTRATED. HEARING AIDES AT BEDSIDE. PT ENCOURAGED TO DRINK FLUIDS. NO OTHER NEEDS AT THIS TIME. CALL LIGHT IN REACH, BED ALARM ON, RAILS UP.
--- NOTE | 2021-01-27 06:10 | NUR ---
IN TO CHECK ON PT AND SEE IF HE NEEDED TO PEE YET, PT DECLINED AT THIS TIME AND WOULD LIKE TO WAIT, OFFERED AND PROVIDED FRESH ICE WATER, NO FURTHER NEEDS
--- NOTE | 2021-01-27 06:44 | NUR ---
PT UP TO BR AND SITTING IN CHAIR. NO NEEDS AT THIS TIME. CHAIR ALARM ON.
--- NOTE | 2021-01-27 07:05 | NUR ---
SHIFT REPORT FROM SHADY RINCON INCLUDED: pt had held his urine most of the evening, then early this morning was able to void and become quantity sufficient, which is normal for him. pt was alert and pleasant with cares through the evening. pt had no more coughing/hacking episodes. pt had an uneventful evening. pt currently in chair, alert and oriented x3 (sans date), calm and breathing even and unlabored. pt denies needs at this time. pt demonstrates proper use of the I.S. at this time of his own volition. pt in chair, table and call light in reach, chair alarm on.
--- NOTE | 2021-01-27 08:45 | NUR ---
MED PASS + ASSESSMENT pt up to chair at this time. pt assessment complete, VSS. pt denies pain and nausea. pt and request "ondansetron" to be given before his medicines this morning, since he "takes it before breakfast and dinner when he's at home". pt had vomitted after yesterdays morning meds, so PRN zofran given this morning before meds as requested. pt able to take all meds without difficulty. pt able to have his breakfast shake and his yogurt. pt getting IV ABX as ordered. pt up to bathroom at this time. pt back to chair, chair alarm on, positioned to comfort on seat cushion, table and call light within reach.
--- NOTE | 2021-01-27 09:00 | NUR ---
PATIENT UP WALKING WITH PHYSICAL THERAPY AT THIS TIME.
--- NOTE | 2021-01-27 10:40 | NUR ---
ROUNDING + MD TO BEDSIDE entered room to MD Shay nguyen at bedside with pt and . pt and educated on pt cares. pt up for DC at this time, but requested to have pt stay another night. MD agreed, and pt is to stay tonight. pt in chair, table and call light within reach.
[2021-01-27] MEDS ORDERED: AUGMENTIN 875-1 EACH PO (10:41)
[2021-01-27] MEDS ORDERED: ISOSORBIDE MONO60 MG PO (10:42)
[2021-01-27] MEDS ORDERED: PROBIOTIC1 EAC2 PO (10:43)
--- NOTE | 2021-01-27 11:56 | NUR ---
1PA PATIENT IN SHOWER. SHAVED FACE, PATIENT HELPED WITH MOST OF SHOWER. BACK IN CHAIR. IN ROOM. CALL LIGHT IN REACH, WARM BLANKET PROVIDED
--- NOTE | 2021-01-27 12:09 | NUR ---
ATTEMPTED MED PASS in room for Creon med pass with pts lunch. pt refused meds at this time due to fatigue after his shower this morning. pt requests to wait to take his creon until around 1300 when he anticipates being ready to have lunch. pt denies pain, nausea, and SOB at this time. table and call light within reach. chair alarm on.
--- NOTE | 2021-01-27 13:09 | NUR ---
MED PASS in room for med pass at this time. pt is now awake and ready for his creon with lunch. pt in chair having lunch, chair alarm on, table and call light within reach. at chair side.
--- NOTE | 2021-01-27 14:00 | NUR ---
ROUNDING pt resting in chair, eyes closed, breathing even and unlabored. table and call light in reach.
--- NOTE | 2021-01-27 15:00 | NUR ---
ROUNDING pt up to bathroom with PHYSICIST SOLID EARTH at this time. call light in reach.
--- NOTE | 2021-01-27 16:59 | NUR ---
MED PASS pt given his 1700 meds at this time. pt able to take meds with minimal, normal difficulty. at side to assist with feeding. pt denies pain and nausea at this time, table and call light within reach.
--- NOTE | 2021-01-27 17:30 | NUR ---
PATIENT SITTING UP IN CHAIR, IN ROOM. PATIENT DRANK BOTTLE OF ENSURE FOR DINNER. ENCOURAGED TO DRINK WATER ON BEDSIDE TABLE. VITALS AND I&OS CHARTED, NO OTHER NEEDS AT THIS TIME
--- NOTE | 2021-01-27 18:01 | NUR ---
ROUNDING pt and finishing dinner shake at this time. pt denies pain, nausea, and SOB. table and call light in reach, chair alarm on.
--- NOTE | 2021-01-27 19:31 | NUR ---
SHIFT REPORT RECEIVED FROM SEJAL RINCON. PT RESTING IN BED, EYES CLOSED. RR EVEN, UNLABORED. CALL LIGHT IN REACH.
--- NOTE | 2021-01-27 21:16 | NUR ---
IN TO GET VITALS, ICE WATER REFRESHED, PT DENIES NEED TO VOID AT THIS TIME, NO FURTHER NEEDS, WILL ROUND WITH PT LATER TO CHECK IF PT NEEDS TO VOID
--- NOTE | 2021-01-27 21:50 | NUR ---
ASSESSMENT COMPLETED. GCS 15, A&O TO PERSON AND PLACE. LUNGS CLEAR, HEART TONES REGULAR. ABD FOST, NONTENDER, PT STATES NORMAL, BOWEL TONES ACTIVE. CMS INTACT. BLE HAVE TRACE EDEMA. IV WNL, FUSHED WELL. SCHEDULED MED PROVIDED. NO OTHER NEEDS AT THIS TIME. CALL LIGHT IN REACH.
--- NOTE | 2021-01-28 00:14 | NUR ---
PT RESTING IN BED, EYES CLOSED. RR EVEN, UNLABORED. CALL LIGHT IN REACH.
--- NOTE | 2021-01-28 00:45 | NUR ---
IN TO GET PT UP TO THE TOILET, PT VOIDING 500mls, NO FURTHER NEEDS
--- NOTE | 2021-01-28 01:36 | NUR ---
PT RESTING IN BED, EYES CLOSED. RR EVEN, UNLABORED. CALL LIGHT IN REACH. BED ALARM ON.
--- NOTE | 2021-01-28 03:34 | NUR ---
PT RESTING IN BED, EYES CLOSED. RR EVEN, UNLABORED. CALL LIGHT IN REACH, RAILS UP, BED ALARM ON.
--- NOTE | 2021-01-28 04:22 | NUR ---
ASSESSMENT COMPLETED. GCS 15, A&O TO PERSON AND PLACE. LUNGS CLEAR, HEART TONES REGULAR. ABD SOFT, NONTENDER, PT STATES NORMAL, BOWEL TONES ACTIVE. CMS INTACT. BLE TRACE EDEMA. SCATTERED BRUISING NOTED. IV WNL. NO OTHER NEEDS. CALL LIGHT IN REACH, RAILS UP, BED ALARM ON.
--- NOTE | 2021-01-28 06:38 | NUR ---
PT UP TO BR, SBA FWW. PT UP IN CHAIR. NO OTHER NEEDS. CALL LIGHT IN REACH.
--- NOTE | 2021-01-28 07:10 | NUR ---
SHIFT REPORT FROM SHADY RINCON INCLUDED: pt had an uneventful evening. pt VSS and able to rest soundly most of the night. pt currently up to chair, resting with eyes closed, breathing even and unlabored, table and call light in reach.
--- NOTE | 2021-01-28 08:30 | NUR ---
MED PASS + ASSESSMENT pt assessment complete, VSS. pt anticipating nausea with morning meds due to having so many. pt given PRN zofran before med pass. pt able to take all meds with some difficulty, some coughing with a few of the tablets. pt drinking his morning nutrient shake and having yogurt with it. pt anticipating physical therapy around 0930 this morning. pt up to chair, denies pain and nausea at this time. table and call light within reach. at chair side. chair alarm on.
--- NOTE | 2021-01-28 09:01 | NUR ---
PATIENT SITTING UP IN CHAIR. ASSISTING PATIENT WITH BREAKFAST. VITALS AND I&OS CHARTED
--- NOTE | 2021-01-28 09:30 | NUR ---
PATIENT WORKING WITH PHYSICAL THERAPY AT THIS TIME IN HALLS.
--- NOTE | 2021-01-28 10:30 | NUR ---
PATIENT DC INSTRUCTIONS + VITALS + IV DC pt and verbalized understanding of DC instructions, medications, and follow up care plans. pt and were educated about meds by Dr East, Bisi RINCON, and Nancy from pharmacy. all questions answered.
== END 2021-01-28 10:30 | disposition home health service (06) | DRG 177 ==
LOC: ED 07:16 → CCU 10:50 → MS 01-25 17:35
PROVIDERS: ADMIT Internal Medicine; ATTEND Internal Medicine
DX: J69.0 Pneumonitis due to inhalation of food and vomit (principal); J96.01 Acute respiratory failure with hypoxia; E22.2 Syndrome of inappropriate secretion of antidiuretic hormone; J15.6 Pneumonia due to other Gram-negative bacteria; Z20.822 Contact with and (suspected) exposure to COVID-19; I25.10 Atherosclerotic heart disease of native coronary artery without angina pectoris; K21.9 Gastro-esophageal reflux disease without esophagitis; M06.9 Rheumatoid arthritis, unspecified; F39 Unspecified mood [affective] disorder; R13.12 Dysphagia, oropharyngeal phase; Z66 Do not resuscitate; Z88.8 Allergy status to other drugs, medicaments and biological substances; Z79.899 Other long term (current) drug therapy; Z79.02 Long term (current) use of antithrombotics/antiplatelets; Z79.52 Long term (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 steroids
CPT/HCPCS: 36415; 36600; 71045; 80048; 80053; 82803; 83605; 83735; 84484; 85007; 85025; 85032; 92526; 92610; 93005; 93010; 96374; 97110; 97116; 97162; 99285-25; C9803; J0295; J0692; J0696; J1650; J2405; J7121; J7512; U0003

== ENCOUNTER 2021-02-11 10:14 | Emergency (ER) | payer MEDICARE, BC ==
[~2021-02-11] VITALS: Ht 177.8 cm; Wt 63.5 kg
[~2021-02-11 10:14] MED LIST changes: +AUGMENTIN 875-1 EACH PO; +AZITHROMYCIN500 MG PO; +CEFUROXIME500 MG PO; +MEGESTROL ACETA40 MG PO; +ONDANSETRON HCL4 MG PO; +PROBIOTIC1 EAC2 PO
== END 2021-02-11 13:10 | disposition home or self-care (01) ==
LOC: ED 10:14
DX: R19.7 Diarrhea, unspecified (principal); I10 Essential (primary) hypertension; I25.2 Old myocardial infarction; Z85.038 Personal history of other malignant neoplasm of large intestine; Z88.8 Allergy status to other drugs, medicaments and biological substances; Z79.899 Other long term (current) drug therapy
CPT/HCPCS: 80053; 85025; 87493; 99284

== ENCOUNTER 2021-07-10 08:11 | Inpatient (IN) | payer MEDICARE, BC ==
[~2021-07-10] VITALS: Ht 177.8 cm; Wt 61.8 kg
--- NOTE | 2021-07-10 15:46 | NUR ---
PT ADMITTED TO MED-SURG AT 1400 TUCKED INTO BED ORIENTED TO ROOM AND CALL LIGHT. REMAINS IN THE ROOM MAKING ARRANGEMENTS FOR PARTICULAR MEALS, QUESTIONING MEDS, GIVING INSTRUCTIONS FOR CARE. 1.5 HOURS SPENT ADDRESSING CONCERNS AND ACCOMODATING NEEDS FOR PT. PT UP TO TOILET AMBULATES WELL WITH FWW, POOR BALANCE BUT STRONG. REPORTS EVENING CONFUSION ASSURED BED ALARM WILL BE USED.
[2021-07-10] MEDS ORDERED: PAROXETINE HCL40 MG PO (15:47)
--- NOTE | 2021-07-10 16:15 | NUR ---
pharmacy meeting with pt and to confirm meds and doses needed
[2021-07-10] MEDS ORDERED: CITALOPRAM HBR40 MG PO (16:18)
[2021-07-10] MEDS ORDERED: CREON DR 6,0001 EACH PO (16:23)
--- NOTE | 2021-07-10 16:25 | NUR ---
Medications reconciled with pharmacy records and patient & interview. Important consideration regarding Creon dose and meals. 1 Creon usually sufficient with breakfast, 2 with average lunch & dinner. Additional may be needed for snacks depending on composition
--- NOTE | 2021-07-10 19:00 | NUR ---
REPORT RECEIVED FROM SERGEY BLANCHARD. pt RESTING IN BED WITH EYES CLOSED, BREATHING UNLABORED. BED ALARM ON.
--- NOTE | 2021-07-10 19:19 | EKG ---
[facility] [address] [place] [address] Signed Atrial flutter with variable AV block Abnormal ECG When compared with ECG of 24-JAN-2021 08:02, Atrial flutter has replaced Sinus rhythm Criteria for Septal infarct are no longer present Nonspecific T wave abnormality now evident in Lateral leads Confirmed by CONSTANTIN CRUZ DO ([id number]) on 07/10/2021 7:18:44 PM Electronically Signed By: CONSTANTIN CRUZ DO 07/10/21 1919 PATIENT NAME: BAYRON ELLER JC Electrocardiogram DATE OF : 31 PHYSICIAN: CONSTANTIN CRUZ DO REPORT #: [id number] REPORT IS CONFIDENTIAL AND NOT TO BE RELEASED WITHOUT AUTHORIZATION
--- NOTE | 2021-07-10 21:45 | NUR ---
pt AWAKE RESTING IN BED. VSS. SCHEDULED MEDICATIONS ADMINISTERED. pt ALERT, ORIENTED TO ALL EXCEPT EXACT DATE AND EVENT. IV SITE FLUSHED WNL, pt C/O DISCOMFORT, D/C'D PER REQUEST. NEW IV PLACED LEFT UPPER ARM, BRISK BLOOD RETURN. DENIES TOILETING NEEDS. ASSESSMENT COMPLETE, FINE CRACKLES THROUGHOUT LUNG LOBES, pt DENIES SOB, HR IRREGULAR, RATE CONTROLLED. SPO2 93% ON RA. CALL LIGHT IN REACH.
--- NOTE | 2021-07-10 23:50 | NUR ---
CHECKED ON pt. RESTING IN BED AWAKE. STATES "I'M FINE I DON'T NEED ANYTHING". LIGHTS OFF IN ROOM. BED ALARM ON. pt DENIES TOILETING NEEDS.
--- NOTE | 2021-07-11 02:33 | NUR ---
pt AWAKENS TO VOICE RNS ENTER ROOM FOR VS. 1PA TO BSC WITH FWW, pt C/O LIGHTHEADEDNESS WITH STANDING, ANXIOUS TO WALK TO RESTROOM, BSC AT SIDE OF BED. ASSISTED BACK TO BED AFTER VOID. ALLOTTED ICE WATER PROVIDED. VSS. ASSESSMENT COMPLETE. CRACKLES AUSCULTATED BILATERALLY IN BASES OF LUNGS. HR IRREGULAR, RATE CONTROLLED. SPO2 WNL ON RA, pt DENIES SOB. CALL LIGHT IN REACH. BED ALARM ON.
--- NOTE | 2021-07-11 04:51 | NUR ---
pt RESTING IN BED. NO DISTRESS NOTED, LIGHTS OFF IN ROOM. BED ALARM IN PLACE.
--- NOTE | 2021-07-11 07:15 | NUR ---
this rn received report from susana willett. pt awake declan collazo in bed. pt states that he thinks he needs to pee- susana willett stated she could get him up
--- NOTE | 2021-07-11 08:00 | NUR ---
PT AWAKE IN ROOM AND SBA TRANSFER TO CHAIR FOR BREAKFAST. PT WANTS TO WAIT UNTIL LATER TODAY TO PLAN FOR A SHOWER. CALL LIGHT WITHIN REACH. NO FURTHER NEEDS AT THIS TIME.
--- NOTE | 2021-07-11 08:15 | NUR ---
THIS RN CONFIRMED WITH BRENTON FROM PHARMACY THAT PT TAKING PLAVIX AND ENOXAPARIN WAS NOT A CONCERN- PTS PLTS WNL
--- NOTE | 2021-07-11 08:30 | NUR ---
THIS RN IN PTS ROOM TO GIVE PT HIS MORNING MEDS. PT SITTING UP TO CHAIR AT THIS TIME. PT PLEASANTLY CONFUSED- PT STATES THAT HE HASN'T SEEN HIS FOR DAYS AND STATES THAT HE DID NOT KNOW THAT HE WAS A DIABETIC. PT OTHERWISE IN GOOD SPIRITS. PT HAS NO CONCERNS THIS AM- JUST ASKING QUESTIONS TO REORINET HIM TO PLACE AND TIME AND EVENT
--- NOTE | 2021-07-11 09:29 | NUR ---
112/48 B/P. 65 MAP. Patient's BP is a little low so I retook it after waiting a little while before trying again on the same arm, which was his right side. His left arm currently has an IV in. RN was notified.
--- NOTE | 2021-07-11 09:58 | NUR ---
pt up and walking halls with physical therapy at this time
--- NOTE | 2021-07-11 12:28 | NUR ---
PT WAS RESTING IN BED WITH HIS GEOFF AT . PT RECOGNIZED ME FROM PREVIOUS VISIT, FRIENDLY, SEEMS RATHER FRAIL. PT SOMEWHAT CONFEDERATED [place], BUT ABLE TO KEEP CONVERSATION GOING. GAVE ENCOURAGEMENT, PT REQUESTED PRAYER FOR WISDOM FOR DR AND STAFF. GAVE BLESSING, WILL FOLLOW NEEDED
--- NOTE | 2021-07-11 14:34 | NUR ---
Patient requested a warm blanket and laurita recieve one. is in room encouraging patient to drink ensure. Call light is in reach.
--- NOTE | 2021-07-11 15:00 | NUR ---
Spoke with patient and his . Pt resides at home with . He uses a wc, walker, toilet riser, rails. He states he consistently uses a walker. stating concern as pt has high blood sugar and has not had this in the past. Pt states he recently had bilat hip injection with steroids for hip pain. and pt deny need for discharge to home they have all equipment needed. drives, pt no longer drives.
--- NOTE | 2021-07-11 15:44 | NUR ---
PT AND PTS BOTH APPEAR TO BE RESTING COMFORTBALY AT THIS TIME.
--- NOTE | 2021-07-11 15:46 | NUR ---
Certified Heart Failure Nurse Note: Chart reviewed no current new recommendations. Patient had completed and actively participated in cardiac rehab at [facility]. Attempted to see patient today was busy with P.T. and is now napping. Plan to call patient post discharge.
--- NOTE | 2021-07-11 18:52 | NUR ---
Call light is in reach. Vitals, I&Os are complete. Patient is now resting.
--- NOTE | 2021-07-11 19:53 | NUR ---
REPORT RECEIVED FROM SERGEY DEVINE. pt RESTING IN BED WITH EYES CLOSED. BREATHING UNLABORED. BED ALARM ON.
--- NOTE | 2021-07-11 21:26 | NUR ---
pt AWAKE RESTING IN BED. UP TO CHAIR SBA. REQUESTING TO SIT IN CHAIR. FORGETFUL. ORIENTED TO SELF, LOCATION. ASSESSMENT COMPLETE. CRACKLES BILATERALLY LOWER LOBES. HR IRREGULAR, RATE CONTROLLED. AFLUTTER ON TELE. CALL LIGHT IN REACH. pt DEMONSTRATES USE OF CALL LIGHT.
--- NOTE | 2021-07-11 21:38 | NUR ---
pt GETTING OUT OF CHAIR INDEPENDENTLY. ASSISTED INTO BED. BED ALARM SET. WARM BLANKET PROVIDED. CALL LIGHT IN REACH.
--- NOTE | 2021-07-11 23:19 | NUR ---
CHECKED ON pt. RESTING IN BED WITH EYES CLOSED. BREATHING UNLABORED. BED ALARM ON.
--- NOTE | 2021-07-12 01:20 | NUR ---
CHECKED ON pt. RESTING IN BED ON LEFT SIDE, HOB ELEVATED. BREATHING UNLABORED. LIGHTS OFF IN ROOM, BED ALARM ON.
--- NOTE | 2021-07-12 04:31 | NUR ---
CHECKED ON pt. RESTING IN BED WITH EYES CLOSED, BREATHING UNLABORED. HR 58-60 A FLUTTER RHYTHM ON TELE 8. BED ALARM ON.
--- NOTE | 2021-07-12 05:55 | NUR ---
pt AWAKE IN BED AFTER LAB DRAW. ASSESSMENT COMPLETE. pt DROWSY, REQUESTING TO REST, DENIES TOILETING NEEDS. ICE WATER REFILLED AND IN REACH. VSS. ASSISTED TO REPOSITION IN BED. CALL LIGHT IN REACH.
--- NOTE | 2021-07-12 08:00 | NUR ---
REPORT RECEIVED FROM NIGHT RN AND PT. CARE RESUMED. PT. IS ALERT AND ORIENTED. AMBULATED TO THE BATHROOM WITH 1PA AND FWW. TOLERATED WELL. UP IN THE CHAIR AND ON RA. PT. STATES POOR APPETITE AND DID NOT WANT BREAKFAST. NO EDEMA PRESENT. IV SITE WNL AND FLUSHES WELL. HE HAD NO DIFFICULTY SWALLOWING PO MEDS. DISCUSSED POC AND PT. LEFT RESTING WITH CALL LIGHT IN REACH, CURTAIN OPEN.
--- NOTE | 2021-07-12 11:30 | NUR ---
PT.'S IS CONCERNED ABOUT HIS POOR APPETITE. GIVEN CLEAR ENSURE AND PATIENT DRANK ALL OF IT.
--- NOTE | 2021-07-12 12:10 | NUR ---
PT RESTING IN BED, RATHER LISTLESS. GEOFF IN ROOM-EVER VIGILANT. SHE WENT HOME LAST NIGHT-SAID SHE NEEDS THAT TIME TO CARE FOR HERSELF. GAVE BLESSING AND ENCOURAGEMENT-WILL FOLLOW
--- NOTE | 2021-07-12 13:02 | NUR ---
Patient via bathroom, FWW, 1PA. is in room. Patient is in bed with a cushion under his bottom. Patient had a little blood in his stool. RN was notified. Stool was a large size. He also urinated but missed the hat to measure it properly.
--- NOTE | 2021-07-12 13:30 | NUR ---
THIS NURSE EDUCATED PT.'S ON METFORMIN ADDED TO EMAR . HE REMAINS ON ROOM AIR AND DENIES PAIN. CUSHION FROM HOME IN PLACE UNDER BOTTOM. PT. LEFT RESTING WITH CALL LIGHT IN REACH.
--- NOTE | 2021-07-12 15:56 | NUR ---
No change in plan for dc.
--- NOTE | 2021-07-12 17:35 | NUR ---
PT'S REPORTS HE IS REFUSING TO EAT. PT. OFFERED CLEAR ENSURE AND DRINKING WELL. ORDERED LIBYAN YOGURT FOR THE PT. HE DENIES PAIN OR NAUSEA. LEFT RESTING WITH CALL LIGHT IN REACH.
--- NOTE | 2021-07-12 19:05 | NUR ---
IN ROOM FOR REPORT, PT IS AWAKE IN BED. HE DENIES NEEDS AT THIS TIME. CALL LIGHT IS CLOSE.
--- NOTE | 2021-07-12 22:15 | NUR ---
IN ROOM TO ASSESS PT AND ADMINISTER MEDICATIONS. PT DENIES PAIN AND SOB. PT ALSO DENIES COUGH AND STATES HE FEELS BACK TO HIS NORMAL SELF AND WANTS TO GO HOME. ADVISED PT THE DR WILL REVIEW HIS TELE AND LABS AND WE WILL HAVE TO GO FROM THERE. PT IS AGREEABLE AND PLEASANT. PT DENIES FURTHER NEEDS AT THIS TIME. CALL LIGHT IS CLOSE AND BED ALARM IS ON.
--- NOTE | 2021-07-12 23:17 | NUR ---
PT IS RESTING WITH EYES CLOSED, RR IS EVEN AND NONLABORED CALL LIGHT IS CLOSE AND BED ALARM IS ON.
--- NOTE | 2021-07-13 01:05 | NUR ---
PT IS RESTING WITH EYES CLOSED, RR IS EVEN AND NONLABORED. TELE SHOWS PT IN A FIB AT 55-65 HR. CALL LIGHT IS CLOSE.
--- NOTE | 2021-07-13 02:34 | NUR ---
PT IS RESTING WITH EYES CLOSED, RR IS EVEN AND NONLABORED. CALL LIGHT IS CLOSE AND BED ALARM IS ON.
--- NOTE | 2021-07-13 04:26 | NUR ---
PT IS RESTING WITH EYES CLOSED, RR IS EVEN AND NONLABORED. CALL LIGHT IS CLOSE AND BED ALARM IS ON.
--- NOTE | 2021-07-13 06:15 | NUR ---
PT WAS AWAKE IN BED, 1PA W/FWW TO RESTROOM. URINE IS SANDY, PT VOIDED 500MLS FOR THE NIGHT. PT DENIES PAIN, STATES HE ONLY HAD SOB WITH TAKING DEEP BREATHS WHILE BEING AUSCULTATED. PT DENIES FURTHER NEEDS AT THIS TIME. CALL LIGHT IS CLOSE AND FRESH ICEWATER PROVIDED. PT DID NOT DRINK ALL HIS FLUIDS FOR THE 24 HR PERIOD.
--- NOTE | 2021-07-13 08:00 | NUR ---
REPORT RECEIVED FROM NIGHT RN AND PT. CARE RESUMED. PT IS ALERT AND ORIENTED TO SELF AND PLACE. HE DENIES PAIN. PT. STILL REPORTS POOR APPETITE, BUT IS DRINKING CLEAR ENSURE. LUNGS DIM. IN THE RLL AND CRACKLES IN THE RUL. PT. ON RA AND O2 SAT REMAINS 95% OR GREATER. NO EDEMA PRESENT. IV SITE WNL AND FLUSHES WELL. DISCUSSED POC AND MEDS. LEFT RESTING WITH CALL LIGHT IN REACH.
--- NOTE | 2021-07-13 10:15 | NUR ---
Spoke with Deep, he is trying to decide what to eat as he does not have an appetite and nothing sounds good. Wwsalima discussed if cold food tastes better and he agrees. He does not like chicken for turkey and no cold meats. He likes jello, popsickles, potatoe soup, clam chowder, and cheese. He states he is on a 2gm salt diet. Spoke with Dr. East and she will change to Reg diet as pts intake is so poor, she will let him eat whatever. Pt denies other needs.
--- NOTE | 2021-07-13 10:55 | NUR ---
Stopped in to provide more education on nutrition for diabetes for home. Patient's , Stanley, is in the room. She was thinking he needed less than 20 grams of carbs per meal. I said that is very low and he won't meet his nutritional needs with that low of carb count. I suggested each meal contain 30-60 grams of carbs, this way he can have some fruit and/or potatoes or even a thin slice of bread which he does eat at home with either minced meat with lopez and relish or peanut butter. He can swallow the thin slice bread ok. I also suggested he try Boost Glucose Control drink instead of the regular Boost vanilla drink that he was drinking before. Boost Glucose Control only has 16 grams of total carb and 4 grams of added sugar which is much lower than the regular Boost. I provided a list of lower sodium, diabetes friendly snacks that Stanley can take home. I provided a handout from the Nutrition Care Manual on "Carb Counting for Diabetes" which explains what the portion size is for 15 grams of carbs for carb-containing foods. Stanley seemed more at ease with knowing she doesn't have to restrict his carbs to less than 20 grams per meal. They love canned fruit from [employer] and I suggested that they drain the light syrup and just keep it to 1/2 cup of fruit and he will be fine. I helped him order his lunch and dinner. Will continue to monitor and assist with dietary issues as needed.
--- NOTE | 2021-07-13 12:04 | NUR ---
PT SITTING IN CHAIR RESTING LOOKIMNG OUT THE WINDOW-HIS GEOFF AT HIS SIDE. HAD PLEASANT VISIT, GAVE ENCOURAGEMENT AND HAD PRAYER WITH BOTH.
--- NOTE | 2021-07-13 12:17 | NUR ---
PT. SITTING UPRIGHT IN THE CHAIR AND ADMIN P.O. CREON. PT. APPEARED TO ASPIRATE. HE BEGAN COUGHING AND VOMITING A SMALL AMOUNT. CREON CAPSULE IN EMESIS. PT. GIVEN EMESIS BAG AND ASSISTED WITH WIPING FACE. WILL CONTINUE TO MONITOR.
--- NOTE | 2021-07-13 13:00 | NUR ---
ROUNDING ON PT. HE REPORTS THAT NAUSEA HAS RESOLVED AND IS TIRED. PT DENIES FURTHER NEEDS. LEFT RESTING WITH AT BEDSIDE.
--- NOTE | 2021-07-13 15:11 | NUR ---
Update from Dr. East, pt will dc tomorrow. She has discussed all with pt and and denies case management needs.
--- NOTE | 2021-07-13 17:48 | NUR ---
PT.'S REPORTS HIS JOSH AREA IS REDDENED AND REQUESTS SOMETHING BESIDES BARRIER CREAM. JOSH AREA IS REDDENED AND BLANCHABLE. APPLIED A&D OINTMENT AND ASSISTED PT. WITH REPOSITIONING ON CUSHION.
--- NOTE | 2021-07-13 18:54 | NUR ---
THIS RN TO ROOM TO ASSIST PTS PRIMARY RN, CARTER, WITH MED PASS. INSULINE GIVEN PT DECLINING FOOD AND CARTER STATES TO HOLD LIPASE/PROTEASE. PT DOES AGREE TO EAT A GRAHM CRACKER WITH POTASSIUM ADMINISTRATION. PT IN HIGH CAMARENA POSITION TO SWALLOW FLUID AND CRACKERS. PT STATES "TUCK THAT CHIN" VERBALIZING UNDERSTANDING OF SWALLOWING PRECAUTIONS. PT BACK TO RESTING IN BED, HEAD OF BED NOW AT 30 DEGREES. NO ADDITIONAL REQUESTS OR COMPLAINTS. CALL LIGHT WITHIN REACH. BED RAILS UP.
--- NOTE | 2021-07-13 19:40 | NUR ---
SHIFT REPORT RECEIVED FROM SERGEY MACHADO. PATIENT RESTING QUIETLY IN BED IN SEMI-FOWLERS POSITION, EYES CLOSED, RESPIRATIONS REGULAR AND EVEN, AND HR=75 ON TELE#8 IN ATRIAL FLUTTER. PATIENT HAS NO CURRENT CARE NEEDS AND CALL LIGHT IS IN REACH.
[2021-07-13] MEDS ORDERED: METFORMIN HCL500 MG PO (20:22)
[2021-07-13] MEDS ORDERED: METOPROLOL TART25 MG PO (20:22)
--- NOTE | 2021-07-13 20:30 | NUR ---
PATIENT TOOK A MELATONIN FOR SLEEP AND HAD NO OTHER CARE NEEDS AT THIS TIME. PM ASSESSMENT COMPLETE AND PM MEDS GIVEN. IV FLUSHED AND WNL. PATIENT HAS FRESH ICE WATER AND IS WARM ENOUGH. LIGHTS TURNED DOWN AT PATIENT'S REQUEST AND CALL LIGHT IS IN REACH AND BED ALARM IS ON.
--- NOTE | 2021-07-13 22:42 | NUR ---
PATIENT RESTING QUIETLY IN SEMI-FOWLERS POSITION, EYES CLOSED, RESPIRATIONS ARE REGULAR AND EVEN, AND CALL LIGHT IS IN REACH.
--- NOTE | 2021-07-13 23:55 | NUR ---
PATIENT HAS TURNED TO HIS RIGHT SIDE AND SET OFF HIS BED ALARM. PATIENT SAYS,"I'M DOING ALRIGHT", AND HAD NO CURRENT CARE NEEDS. CALL LIGHT IN REACH AND BED ALARM RESET.
--- NOTE | 2021-07-14 01:32 | NUR ---
CHECKED ON PATIENT AND HE HAS TURNED TO HIS BACK IN SEMI-FOWLERS POSITION AND IS RESTING QUIETLY. PATIENT VOICES,"I'M DOING OK", AND HAS NO CARE NEEDS AT THIS TIME. CALL LIGHT IN REACH AND BED ALARM IS ON.
--- NOTE | 2021-07-14 02:56 | NUR ---
PATIENT STILL RESTING QUIETLY IN SEMI-FOWLERS POSITION, RESPIRATIONS ARE REGULAR AND EVEN, EYES ARE CLOSED, AND CALL LIGHT IS IN REACH.
--- NOTE | 2021-07-14 05:05 | NUR ---
PATIENT CONTINUES TO REST QUIETLY IN SEMI-FOWLERS POSITION MORE TO HIS LEFT SIDE NOW, EYES ARE CLOSED, RESPIRATIONS REGUALR AND EVEN, AND CALL LIGHT IS IN REACH, BED ALARM IS ON.
--- NOTE | 2021-07-14 06:00 | NUR ---
PATIENT UP TO THE BATHROOM 1PSBA AND FWW AND BACK TO BED AFTER STANDING DAILY WT. PATIENT'S VS STABLE. PATIENT DENIES PAIN AND ICE WATER IS REFILLED. PATIENT HAS NO OTHER NEEDS AT THIS TIME. CALL LIGHT IN REACH AND BED ALARM ON. PATIENT LOOKING FORWARD TO GOING HOME TODAY.
--- NOTE | 2021-07-14 07:05 | NUR ---
Report received from Izaiah RINCON. Pt resting in bed, awakens to voice and is alert and oriented. No needs at this time, will continue plan of care.
--- NOTE | 2021-07-14 07:12 | NUR ---
PATIENT RESTING QUIETLY IN BED. SHIFT REPORT GIVEN TO SERGEY SEGURA AT BEDSIDE. PATIENT DENIES ANY CARE NEEDS AT THIS TIME. CALL LIGHT IN REACH AND BED ALARM ON.
--- NOTE | 2021-07-14 08:30 | NUR ---
Scheduled medications administered, assessment complete. Pt alert and oriented, VSS, states no pain or needs.
--- NOTE | 2021-07-14 10:08 | NUR ---
PATIENT IN CHAIR FOR BREAKFAST, SBA FWW. PATIENT IN CHAIR AT THIS TIME RESTING WITH EYES CLOSED. VITALS AND I&O'S CHARTED. CALL LIGHT IN REACH. NO FURTHER NEEDS AT THIS TIME.
--- NOTE | 2021-07-14 12:06 | NUR ---
Discharge teaching provided to patient who verbalizes understanding and has no questions. IV removed WNL, VSS, pt alert and oriented. Flu shot administered and consent signed.
--- NOTE | 2021-07-16 15:29 | NUR ---
Heart Failure Follow Up Call Called [facility] Bridges[facility] and spoke to Stanley. She said he is not great. Sleeps between meals and medication administration times. He seems exhausted. Not eating much. She is adapting to diabetic diet cooking and looking for low carb sweet potatoes to grow. Report his SPO2 levels are normal and BP is close to his normal. He is still coughing. Has appointment with new PCP Harjit this . She stated the medication changes and has no concerns about them. Welcomed them to call this service if needed.
== END 2021-07-14 12:15 | disposition home or self-care (01) | DRG 291 ==
LOC: ED 08:11 → MS 13:25
PROVIDERS: ADMIT Student in an Organized Health Care Education/Training Program; ATTEND Student in an Organized Health Care Education/Training Program
DX: I11.0 Hypertensive heart disease with heart failure (principal); I50.33 Acute on chronic diastolic (congestive) heart failure; I48.92 Unspecified atrial flutter; K86.1 Other chronic pancreatitis; E11.65 Type 2 diabetes mellitus with hyperglycemia; M06.9 Rheumatoid arthritis, unspecified; Z20.822 Contact with and (suspected) exposure to COVID-19; I25.10 Atherosclerotic heart disease of native coronary artery without angina pectoris; R13.12 Dysphagia, oropharyngeal phase; K75.9 Inflammatory liver disease, unspecified; K21.9 Gastro-esophageal reflux disease without esophagitis; Z66 Do not resuscitate; Z88.8 Allergy status to other drugs, medicaments and biological substances; Z95.1 Presence of aortocoronary bypass graft; Z85.038 Personal history of other malignant neoplasm of large intestine; I25.2 Old myocardial infarction; Z90.49 Acquired absence of other specified parts of digestive tract; Z98.890 Other specified postprocedural states; Z79.02 Long term (current) use of antithrombotics/antiplatelets; Z79.899 Other long term (current) drug therapy
CPT/HCPCS: 71045; 71260; 74018; 80053; 81001; 82977; 83036; 83735; 83880; 84484; 85025; 90694; 92526; 92610; 93005; 93010; 97161; 97165; 99285-25; C9803; J1650; J1815; J1940; J3475; J7512; Q9967; U0003

== ENCOUNTER 2021-07-26 05:09 | Inpatient (IN) | payer MEDICARE, BC ==
[~2021-07-26] VITALS: Ht 177.8 cm; Wt 62.0 kg
[~2021-07-26 05:09] MED LIST changes: +CITALOPRAM HBR40 MG PO; +METFORMIN HCL500 MG PO; +METOPROLOL TART25 MG PO; +PAROXETINE HCL40 MG PO
--- NOTE | 2021-07-26 11:56 | NUR ---
REPORT RECEIVED FROM SERGEY BROWER. AWAITING PTS ARRIVAL TO UNIT.
[2021-07-26] MEDS ORDERED: LANTUS SOL100 UNIT/1 SUB-Q (12:19)
--- NOTE | 2021-07-26 12:38 | NUR ---
PT ARRIVED FROM ER. TRANSFERED TO BED WITH 3 PERSON SLIDE ASSIST. PT ABLE TO FOLLOW COMMANDS. PT NOTED TO BE SOILED WITH SOFT YELLOW BM. JOSH CARE DONE. DEPENDS CHANGED. BLANCHABLE REDNESS 8CM X8CM NOTED ARROUND COCCYXGUERLINE APPLIED. FAMILY STATES "HE GETS RED THERE" AND NOTES THAT THIS HAS BEEN PRESENT "FOR A WHILE." PT DENIES PAIN AND NAUSEA. BED SIDE SWALLOW EVALUATION COMPLETED. PT UNABLE TO SWALLOW WITHOUT COUGH, CHOAK, AND THROAT CLEARING EVEN WITH 1ST STEP OF ONE SPOON OF WATER. MD UPDATED. PT ORIENTED TO SELF, FAMILY, TOWN AND IS ABLE TO FOLLOW DIRECTIONS. PT DISORINTED TO DATE, YEAR, EVENTS, AND SITUATION. FAMILY REPORTS PT HAS BEEN ABLE TO GET UP OUT OF BED UNTIL TODAY. PT SLID TO GROUND AFTER EMESIS EPISODE THIS MORNING. PT WEAK AT THIS TIME AND UNABLE TO LIFT LEGS FULLY OFF THE BED. PT IS ABLE TO ASSIST WITH SIDE TO SIDE ROLL. LUNG SOUNDS COURSE BUT FOR LEFT UPPER LOBE. PT REMAINS ON 15L O2 BY NRB WITH OXGYEN SATURATIONS IN THE LOW 90'S. PT USING ABDOMINAL MUSCLES TO BREATH. FAMILY REPORTS OCCATIONAL PRODUCTIVE COUGH WITH WHITE SPUTUM. FAMILY ALSO CONFIRMS THAT PT IS FREQUENTLY COUGHING WITH PO INTAKE. PT REPORTS RECENT EMESIS AND NAUSEA BUT DENIES NAUSEA AT THIS TIME. PRABHAKAR CATHETER REMAINS IN PLACE. CLOUDY YELLOW URINE NOTED. PT POSITIONED IN BED WITH HEAD OF BED ELEVATED TO 40 DEGREES, ASPIRATION PRECAUTIONS IN PLACE. PT REMAINS NPO AT THIS TIME. FAMILY UPDATED ON PLAN OF CARE. CALL LIGHT WITHIN REACH. BED RAILS UP.
--- NOTE | 2021-07-26 13:20 | NUR ---
THIS RN REMAINS AT BEDSIDE WITH PT. PT REPORTS NEED TO HAVE BOWEL MOVEMENT. PT REPORTS HE WOULD LIKE TO GET UP TO BEDSIDE COMODE. PT UP TO SITTING POSITION ON EDGE OF BED WITH 2 PERSON ASSIST AND EYES BEGIN TO ROLL BACK IN HEAD. PT BACK TO BED AND PLACED ON BED DEL RIO. PT UNABLE TO HAVE BOWEL MOVEMENT AT THIS TIME. PT RESTING IN BED, FAMILY AT BEDSIDE. NO ADDITOINAL REQUESTS OR COMPLAINTS. CALL LIGHT WITHIN REACH.
--- NOTE | 2021-07-26 13:45 | NUR ---
MEDICATIONS DUE. THIS RN TO ROOM. PT REPORTS FEELING COLD. ADDITIONAL WARM BLANKETS PROVIDED. PT REMAINS ON 15L O2 BY NRB WITH OXGYEN SATURATIONS 89-92%. MEDICAITONS GIVEN. MD STATES TO KEEP PT NPO AT THIS TIME DUE TO FAILED SWALLOW EVALUATION. FAMILY UPDATED AND VERBALIZES UNDERSTANDING. NO ADDITIONAL REQUESTS OR COMPLAINTS. CALL LIGHT WITHIN REACH. BED RAILS UP. FAMILY AT BEDSIDE. BED ALARM ON.
--- NOTE | 2021-07-26 14:24 | NUR ---
PT RESTING IN BED, O2 MASK IN USE. PT SEEMS MORE COMFORTABLE. GEOFF AND DAUGHTER IN RM. OTHER FAMILY IN ROUTE FROM OUT OF TOWN. FAMILY UNDERSTAND PTS CONDITION. ORGANS ARE BEGINNING TO SHUT DOWN, THEY ARE PREPARING. GAVE COMFORT PRAYER AND HAD PRAYER WITH PT. HE RESPONDED TO MY VOICE. GOD BLESS HIM
--- NOTE | 2021-07-26 14:30 | NUR ---
DR. CRUZ CALLED REGARDING PTS FEBRIAL AND NPO STATUS TO REQUEST NON ORAL MEDICATION. NEW ORDERS GIVE FOR OK TYELNOL. PT UPDATED AND AGREES TO RECTAL TYLENOL. MEDICAITON GIVEN. PT REPOSIONED WITH HOME PILLOW UNDER BOTTOM AND SUPPORTED COCCYX. PT NOTED TO BE COUGHING AND CLEARING THROAT. HEAD OF BED ELEVATED TO 40 DEGREES. PT REPORTS FEELING COMFORTABLE. PTS FAMILY AT BEDSIDE. CALL LIGHT WITHIN REACH. BED RAILS UP.
--- NOTE | 2021-07-26 14:33 | NUR ---
ARVIND from Dr. Yan for tylenol 650mg suppository Q6 hours PRN for fever.
--- NOTE | 2021-07-26 14:49 | NUR ---
IN TO CHECK ON PT. PT IV BEEPING. LEFT AC IV SALINE LOCKED. BED RAILS UP CALL LIGHT IN REACH PT DENIES PAIN. AT THE BEDSIDE.
--- NOTE | 2021-07-26 16:11 | NUR ---
THIS RN TO ROOM TO CHECK ON PT. PT REPORTS FEELING "HOT." SOME BLANKETS REMOVED. TEMPERATURE REASSESSED, NOW 98.0. PT DENIES PAIN. PT DOES NOT ANSWER QUESTIONS ABOUT NAUSEA. FREQUENTLY DROWSY. AWAKENS AT TIMES TO ANSWER QUESTIONS BUT QUICKLY FALLS BACK TO SLEEP. PT REMAINS ORIENTED ONLY TO SELF, TOWN, AND FAMILY. UNABLE TO CLARIFY WHERE HE IS, EVENTS/SITUATION, OR DATE. FOLLOWS DIRECTIONS INCONSISTANTLY. PT UNABLE TO LIFT LEGS OFF THE BED AT THIS TIME. PT ENCORUAGED TO REPOSION BUT DECLINES AND BECOMES TEARFUL WITH SUGGESTION. PT ALLOWED TO CONTINUE RESTING ON BACK WITH HEAD OF BED ELEVATED TO 45 DEGREES. PT CONTINUES SITTING ON PILLOW FROM HOME. LUNG SOUNDS CORSE IN LOWER LOBES, CLEAR IN UPPER LOBES. OXGYEN SATURATION 94% ON 15L O2 BY NRB. PT CONTINUES CLEARING THROAT WITH OCCATIONAL COUGH NOTED. TACHYCARDIA RESOLVED. PRABHAKAR CATHETER NOTED TO HAVE ONLY 15ML URINE SINCE ADMISSION. FAMILY REMAINS AT BEDSIDE. NO ADDITIONAL REQUESTS OR COMPLAINTS. CALL LIGHT WITHIN REACH. BED RAILS UP.
--- NOTE | 2021-07-26 17:00 | NUR ---
MD CONSULTED REGARDING BLOOD PRESSURE, LOW URINE OUTPUT AND PTS ALTERED MENTAL STATUS. NEW ORDERS GIVEN FOR 500ML LR BOLUS. STARTED PER MD ORDER. PT REQUESTS TO USE BED DEL RIO. 2 PERSON ASSIST TO ROLL AND PLACE BED DEL RIO. PT CONTINUES TO BE CONFUSED AND DISORIENTED STATING "I'M SORRY THE WOLVES ARE IN THE LIVESTOCK." PT REORIENTED TO PLACE TIME AND EVENTS. PTS FAMILY UPDATED ON PLAN OF CARE AND CONTINUES TO AGREE TO CARES THAT ARE BEING GIVEN. FAMILY DECLINES TRANSFER AT THIS TIME STATING THEY WANT TO CONTINUE WITH THE CARES THAT ARE CURRENTLY PLANNED. PT HAS SMALL SOFT BOWEL MOVEMENT, JOSH CARE DONE, DEPENDS CHANGED. PT REPOSITIONED TO RIGHT SIDE. SUPPORTED WITH PILLOWS. NO ADDITIONAL REQUESTS OR COMPLAINTS AT THIS TIME. CALL LIGHT WIHTIN REACH. BED RAILS UP. FAMILY AT BEDSIDE.
--- NOTE | 2021-07-26 18:23 | NUR ---
PUMP ALARMING, IV FLUID BOLUS COMPLETE. IV FLUSHED AND SALINE LOCKED PER PROTCOL. ALCOHOL CAP APPLIED. PT REPORTS FEELING HOT, EXTRA BLANKETS REMOVED. PT OTHERWISE STATES HE IS COMFORTABLE. FAMILY AT BEDSIDE. CALL LIGHT WITHIN REACH. BED RAILS UP.
--- NOTE | 2021-07-26 18:31 | NUR ---
PT ADMITTED THIS SHIFT FOR ASPIRATION PNEUMONIA, SEPSIS, GENERALIZED WEAKNESS, AND PE. PT REMAINS ON BED REST THIS SHIFT, UNABLE TO GET UP TO EDGE OF BED SAFELY, Q2 TURNS FOR REPOSITIONING. PT FAILED BEDSIDE SWALLOW EVALUATION WITH COUGHING, CHOAKING AND THROAT CLEARNING AND REMAINS NPO THIS SHIFT. IV FLUIDS INFUSING. BLOOD PRESSURE LOW. URINE OUTPUT INSUFFICIENT, MD AWARE, IV FLUID BOLUSES GIVEN. PRABHAKAR CATHETER IN PLACE. PT REMAINS ON 15L O2 BY NON REBREATHER MASK, ASPIRATION PRECAUTIONS IN PLACE AT ALL TIMES. PT FEBRIAL THIS SHIFT, OH TYLENOL GIVEN WITH GOOD EFFECT. ALLEVYN PLACED FOR BLANCHABLE REDNESS TO COCCYX. FAMILY AT BEDSIDE AT ALL TIMES. PT ORIENTED ONLY TO SELF, FAMILY AND TOWN. PT DROWSY AND OCCATIONALLY RESPONDING INAPPROPRATLY. PT DOES NOT USE CALL LIGHT.
--- NOTE | 2021-07-26 19:01 | NUR ---
DR. CRUZ CALLED AND UPDATED REGARDING PTS VITAL SIGNS. DR. CRUZ STATES TO GIVE PT AN ADDITIONAL 500ML LR BOLUS ORDER ENTERED. NO ADDITIONAL NEW ORDERS AT THIS TIME. ORDER ENTERED.
--- NOTE | 2021-07-26 19:45 | NUR ---
IN TO ASSIST RN WITH BEDPAN PLACEMENT, CALL LIGHT IN REACH, WILL CHECK ON PT WELL
--- NOTE | 2021-07-26 19:45 | NUR ---
SHIFT REPORT RECEIVED FROM HUMA DELGADO AT BEDSIDE. pt AWAKE ADN RESTING IN BED, RECENTLY PLACED ON BEDPAN WITH HELP FROM TERESA RICHMOND, NO BM NOTED. pt BOOSTED IN BED WITH HOB ELEVATED AND ASPIRATION PRECAUTIONS IN PLACE. PILLOWS UNDER BILATERAL ARMS FOR COMFORT. PRABHAKAR PATENT WITH SCANT UO IN TUBING, MD AWARE PER SHIFT REPORT. DAUGHTER DARCY IN ROOM WITH pt AT THIS TIME. MAYDA ALSO IN ROOM AND SWITCHED pt FROM 15L NONREBREATHER TO 6LNC, CPOX IN PLACE, SPO2 IN LOW 90'S. SERGEY VASQUEZ STARTED ORDER FOR 500ML BOLUS, INFUSING DIRECTED AND IV SITE WNL. CALL LIGHT IN REACH.
--- NOTE | 2021-07-26 19:56 | NUR ---
IV FLUIDS BOLUS STARTED (SEE MAR). REPORT GIVEN TO SERGEY TALLEY. PT RESTING IN BED ON BACK WITH HEAD OF BED ELEVATED TO 40 DEGREES. RT TO BEDSIDE AND WEANS PT TO 6L O2 BY NC. CPOX IN PLACE FOR MONITORING. FAMILY AT BEDSIDE. CALL LIGHT WITHIN REACH. BED RAILS UP.
--- NOTE | 2021-07-26 20:23 | EKG ---
[facility] [address] [place] [address] Signed Atrial flutter with variable AV block Septal infarct , age undetermined Abnormal ECG When compared with ECG of 10-JUL-2021 09:14, Septal infarct is now present Non-specific change in ST segment in Inferior leads ST now depressed in Lateral leads Inverted T waves have replaced nonspecific T wave abnormality in Inferior leads QT has lengthened Confirmed by CONSTANTIN CRUZ DO ([id number]) on 07/26/2021 8:23:04 PM Electronically Signed By: CONSTANTIN CRUZ DO 07/26/212022 PATIENT NAME: BAYRON ELLER Electrocardiogram DATE OF : 31 PHYSICIAN: CONSTANTIN CRUZ DO REPORT #: [id number] REPORT IS CONFIDENTIAL AND NOT TO BE RELEASED WITHOUT AUTHORIZATION
--- NOTE | 2021-07-26 20:30 | NUR ---
IN TO GET VITALS, I&Os, PRABHAKAR CARE COMPLETE AT THIS TIME, NO FURTHER NEEDS AT THIS TIME, PT RESTING COMFORTABLY AT THIS TIME, DAUTHER AT BEDSIDE
--- NOTE | 2021-07-26 21:29 | NUR ---
IN ROOM TO START IV AZITHROMYCIN. PT STATES HE HAD A BM, WILL RETURN WITH ASSISTANCE IN CLEANING HIM UP. FAMILY MEMBER IN ROOM AND CALL LIGHT IS CLOSE.
--- NOTE | 2021-07-26 21:30 | NUR ---
ASSESSMENT COMPLETE, SCHEDULED MEDS GIVEN (SEE EMAR). IV SITE WNL AND INFUSING FLUIDS DIRECTED. IV SITE SALINE LOCKED TO LEFT AC, SITE WNL. pt AWAKENS TO VOICE, A/O TO SELF AND ATTEMPTS TO FOLLOW COMMANDS TO BEST OF ABILITY. REPOSITIONED IN BED, HOB ELEVATED WITH ASPIRATION PRECAUTIONS IN PLACE. DR CRUZ AWARE OF LAST SET OF VS, SBP IN 70'S. NANCY IN ROOM AND DISCUSSING PROGNOSIS WITH DAUGHTER, QUESTIONS ANSWERED. NO ADDITIONAL NEEDS, CALL LIGHT IN REACH.
--- NOTE | 2021-07-26 21:47 | NUR ---
CHANGED PT'S ATTENDS WITH HELP OF TERESA RICHMOND, HE HAS A SMALL BM. CLEAN ATTENDS ARE IN PLACE AND ALLYVN IS INTACT ON COCCYX WITH PT'S FOAM PILLOW UNDER HIS HIPS. PT DENIES FURTHER NEEDS, CALL LIGHT IS CLOSE AND FAMILY MEMBER IS IN THE ROOM.
--- NOTE | 2021-07-26 22:50 | NUR ---
DR CRUZ ON PHONE AND PROVIDED WITH pt UPDATE, INFORMED OF RECENT BP RESULT OF 76/45, MAP OF 52. ALSO INFORMED BY RT MAYDA THAT DAUGHTER CALLED RT INTO ROOM FOR SPO2 CHECK, SPO2 UPPER 90'S ON 10L HIGHFLOW NC. PER RT, CRACKLES NOTED IN LUNG BASES. NANCY MADE AWARE. DR CRUZ ALSO AWARE OF ACCUCHECK RESULT OF 95 WITH EVENING MED PASS. TELEPHONE ORDERS READ BACK TO DECREASE LR FROM 100MLS/HR TO 50MLS/HR AND TO REPEAT BP AT APPROX 0100. IF SBP CONTINUES TO TREND INTO 60'S OR IF MAP TRENDS DOWN INTO 40'S, HAVE DAUGHTER CALL AND OTHER FAMILY MEMBERS TO COME IN AND VISIT pt. pt IS DNR/DNI, NOT COMFORT MEASURES AT THIS TIME FAMILY IS DEBATING POC OPTIONS. IF FAMILY WISHES THEN TO SPEAK TO MD CALL MD AND NOTIFY HIM. ALSO GIVEN TELEPHONE ORDERS READ BACK TO CHECK BLOOD SUGAR AT APPROX 0100 AND IF RESULT IS <90, SWITCH pt TO D5LR @75MLS/HR. DAUGHTER UPDATED WITH DISCUSSION WITH MD AND POC FOR SHIFT. QUESTIONS ANSWERED. WEIGH BOX TENDERSERGEY PALACIO UPDATED.
--- NOTE | 2021-07-26 23:06 | NUR ---
IN TO CLEAN UP PT, PT HAS SMALL BM, SOFT, NO FURTHER NEEDS AT THIS TIME, PILLOWS UNDER ARMS FOR PTs COMFORT, DAUHTER AT BEDSIDE,
--- NOTE | 2021-07-26 23:26 | NUR ---
IN ROOM TO ADMINISTER IV ABX, AND DECREASE LR TO 50MLS PER HOUR. PT IS RESTING WITH EYES CLOSED, RR RATE EVEN AND NONLABORED. BOTH IV'S ARE INFUSING FINE. FAMILY DENIES NEEDS AT THIS TIME. CALL LIGHT IS CLOSE.
--- NOTE | 2021-07-27 00:21 | NUR ---
CALL LIGHT ANSWERED, IV ABX COMPLETE TO LEFT AC, SITE WNL AND FLUSHES EASILY. IV FLUIDS INFUSING AT 50MLS/HR, SITE WNL. CHAPSTICK APPLIED TO LIPDS, NO ADDITIONAL NEEDS, CALL LIGHT IN REACH.
--- NOTE | 2021-07-27 00:48 | NUR ---
IN TO GET QUICK BP AND SPO2 CHECK FOR RN, I&Os CHECKED
--- NOTE | 2021-07-27 01:18 | NUR ---
vs taken by robert etienne, sbp remains in 70's, no significant change from previous vs, will continue to monitor. accucheck result of 153, will monitor. daughter анна in room and provided with update, poc, and information regarding comfort care. all questions answered, call light in reach.
--- NOTE | 2021-07-27 02:00 | NUR ---
IN TO REPOSITION PT WITH PILLOW TO LEFT HIP, PT OFF REAR CUSHION RECENTLY, PILLOWS UNDER ARMS PER PTs COMFORT, NO FURTHER NEED
--- NOTE | 2021-07-27 02:30 | NUR ---
scheduled 0200 meds given, see emar. pt incont of small/smear bm. gabriel care done and pt repositioned in bed with help from robert etienne. iv site wnl, fluids infusing as directed. pt states, "my chest is filling up" after turning pt in bed. pt in bed with hob elevated, hob raised to approx 45-50 degrees. crackles noted in lower lobes, diminished/clear in upper lobes. pt reports feeling resolved after hob raised and repositioned, will monitor. pt remains on 10l [place] nc, oral care done. no additional needs. call light in reach and daughter анна in room.
--- NOTE | 2021-07-27 02:41 | NUR ---
scheduled iv steriod given, see emar. iv site wnl. new bag iv fluids hung and infusing -lr @50mls/hr. call light in reach. daughter анна christensenbrittney with pt.
--- NOTE | 2021-07-27 03:00 | NUR ---
IN TO CLEAN UP PT POST BM, NEW DRAWSHEET AND CHUX, NEW ATTENDS, PILLOW UNDER LEFT HIP, UNDER ARMS, NO FURTHER NEEDS
--- NOTE | 2021-07-27 05:24 | NUR ---
IN ROOM TO ROUND ON pt, pt AWAKE AND RESTING IN BED. RECENTLY BOOSTED AND REPOSITIONED IN BED BY INTERNET TECHNOLOGY MANAGERSERGEY PALACIO AND TERESA RICHMOND, JARAD NOW ON TOP OF PERSONAL DONUT. 10L HIGHFLOW NC IN PLACE, VSS. DAUGHTER COMPLETED ORAL CARE. BED ALARM ON FOR SAFETY.
--- NOTE | 2021-07-27 06:50 | NUR ---
SCHEDULED IV ABX X2 INFUSING DIRECTED. IV SITES X2 WNL AND FLUSHES EASILY. ASPIRATION PRECAUTIONS IN PLACE, HOB ELEVATED TO 45 DEGREES. NO ADDITIONAL NEEDS, CALL LIGHT IN REACH.
--- NOTE | 2021-07-27 07:24 | NUR ---
REPORT RECEIVED FROM SERGEY TALLEY. PT RESTING IN BED WITH HEAD OF BED ELEVATED TO 50 DEGREES. PT REPORTS MILD PAIN "IN THE MIDDLE OF MY BACK." PT REPOSITIONED IN BED, BOOSTED AND REPORTS "THAT FEELS MUCH BETTER." WARM BLANKETS PROVIDED. PT DENIES ADDITIONAL REQUESTS OR COMPLAINTS AT THIS TIME. PT CONVERSING THIS MORNING AND RECOGNIZES THIS RN. PT REMAINS DISORIENTED TO PLACE. NO ADDIITONAL REQUESTS OR COMPLAINTS. CALL LIGHT WITHIN REACH. BED RAILS UP.
--- NOTE | 2021-07-27 07:42 | NUR ---
pt SLEPT OFF AND ON THIS SHIFT, PAIN CONTROLLED WITH REPOSITIONING, TURN Q2H. ASPIRATION PRECAUTIONS REMAINED IN PLACE WITH HOB ELEVATED TO >45 DEGREES. IV FLUIDS INFUSING, pt ON VARIOUS IV ABX. NPO, ORAL CARE PRN. SMALL SMEAR BM'S NOTED, PRABHAKAR CATHETER IN PLACE. INADAQUETE MD KLARISSA AWARE. LOW SBP'S, MD ALSO AWARE. FAMILY REMAINS AT BEDSIDE.
--- NOTE | 2021-07-27 08:00 | NUR ---
Spoke with pt and son, pt cont. to live at home with his . He is now deteriorated and unable to care for himself, is unable to provide care. Family are wanting to cont. care. Will fu and speak with .
--- NOTE | 2021-07-27 08:06 | NUR ---
MORNING ASSESSMENT AND MEDICAITON DUE. THIS RN TO ROOM. PT RESTING IN BED WITH HEAD OF BED ELEVATED TO 50 DEGREES. PT DENIES PAIN AND NAUSEA. PT ORIENTED TO SELF, PLACE, FAMILY AND PT DOES FOLLOW DIRECTIONS. PT MORE ACTIVE AND TALKATIVE THIS MORNING. PT ABLE TO CARRY ON CONVERSATION APPROPRIATLY. PT REMAINS DISORIENTED TO EVENTS, SITUATION AND TIME/DATE. PT REMAINS NPO, THROUGH ORAL CARE DONE WITH SUCTION IN PLACE. MOUTH MOISTURIZER APPLIED. PT STONGER THIS MORNING AND IS ABLE TO LIFT LEGS OFF THE BED. JAUNDICE NOTED TO SCLERA OF EYES AND TO SKIN OF LEGS. PEERLA PRESENT. UPPER LOBES OF LUNGS CLEAR, CRACKELS NOTED IN LOWER LOBES. OCCATIONAL COUGH NOTED. ASPIARTION PRECAUTIONS REMAIN IN PLACE. PT CONTINUES USING ABDOMINAL MUSCLES WITH BREATHING. PT RMEAINS ON 10L O2 BY NC, OXYGEN SATURATION 95%. PT REMAINS TACHYCARDIC, BLOOD PRESSURE IMPROVED SINCE YESTERDAY. PRABHAKAR CATHETER IN PLACE. URINE OUTPUT IMPROVED SINCE YESTERDAY. DEPENDS SOILED WITH SOFT STOOL. JOSH CARE DONE. FRESH DEPENDS AND ALLEVYN PLACED TO COCCYX. [facility] FAMILY AT BEDSIDE. BED RAILS UP. CALL LIGHT WITHIN REACH.
--- NOTE | 2021-07-27 10:07 | NUR ---
OTILIA DUE. THIS RN TO ROOM. NEW IV STARTED PER PROTOCOL TO RIGHT FORARM, BRISK BLOOD RETURN NOTED WITH IV START. VANCO STARTED IN RIGHT FORARM IV. S/S OF INFILTRATION REVIEWED WITH PT AND FAMILY WHO VERBALIZE UNDERSTANDING OF WHEN TO CONTACT THE NURSING STAFF. PT REPORTS FEELING UNCOMFORTABLE. PT REPOSITIONED TO BACK WITH HEAD OF BED ELEVATED TO 50 DEGREES. PTS HOME PILLOWS PLACED UNDER BUTTOCKS/COCCYX PER PT REQUEST. PT REQUESTS ADDIIONAL ORAL CARE STATING "I'M JUST SO DRY." ORAL CARE PERFORMED WITH SUCION IN PLACE, MOUTH MOSTURIZER USED. PTS ARRIVED AND UPDATED ON PLAN OF CARE. NO ADDITONAL RQEUSTS OR COMPLAINTS AT THSI TIME. CALL LIGHT WITHIN REACH. BED RAILS UP. FAMILY AT BEDSIDE.
--- NOTE | 2021-07-27 10:33 | NUR ---
PT CALL LIGHT ON. PT REPORTS HIS GLUTEAL PILLOW IS NOT CORRECTLY PLACED. PT REPOSIOINED, AND PILLOW ADJUSTED. IV ASSESSED, WNL, NO S/S OF PHLEBITIS NOTED. PT DENIES PAIN AND NAUSEA. CALL LIGHT WITHIN REACH. BED RAILS UP. FAMILY AT BEDSIDE.
--- NOTE | 2021-07-27 10:46 | NUR ---
IN TO CHECK ON PT, AT BEDSIE. EXPRESSED CONCERN OVER PT LIPS QIVERING. SERGEY DUEÑAS EXPLAINED TO SPOUSE IT IS LIKLY R/T BEING OVER STIMULATED AND FURTHER EXPLAINED DIMNESS OVER LIGHTES TO AIDE IN DECREASING THIS FOIR THE PT. SPOUSE SHOOK HER HEAD YES IN DEMONSTARION OF HER UNDERSTANDING. NO OTHER CONCERNS OR REQUESTS ATT HIS TIME. BED RAILS UP. CALL LIGHT IN REACH.
--- NOTE | 2021-07-27 11:00 | NUR ---
REPORT GIVEN TO SERGEY NJ, WHO IS ASSUMING CARE OF PT WITH ASSISTANCE FROM SAVANAH RN AND JOHNIE RINCON.
--- NOTE | 2021-07-27 11:17 | NUR ---
PUMP ALARMING INFUSION AND FLUSH COMPLETE. IV ASSESSED, WNL. BRISK BLOOD RETURN NOTED. IV FLUSHED AND LOCKED PER PROTOCOL. ALCOHOL CAP APPLIED. PATIENT WAS READJUSTED IN BED TO THE LEFT SIDE SUPPORTED WITH PILLOWS. DR. CRUZ TO BEDSIDE TO REVIEW PLAN OF CARE WITH PT AND FAMILY. FAMILY AND PT VERBALIZE UNDERSTANDING OF PLAN OF CARE. CALL LIGHT IS WITHIN REACH. BEDRAILS ARE UP. FAMILY AT BEDSIDE.
--- NOTE | 2021-07-27 11:18 | NUR ---
PT SITTING UP IN BED, O2 NC IN USE. PT MORE ALERT SAW ME AND CALLED ME BY NAME. JEROME TELLEZ AT . PT REQUESTED PRAYER, WILL FOLLOW
--- NOTE | 2021-07-27 12:15 | NUR ---
Stopped by room, pt sleeping. No family members present.
--- NOTE | 2021-07-27 12:39 | NUR ---
IN TO CHECK ON PT, PT O2 84 ON MONITOR. ON ENTERING ROOM PT SITTING UPRIGHT IN BED TALKING ON PHONE. NO DISTRESS NOTED. DENIES PIAN AND DISCOMFORT. PT REPORTS " MY SISTER BROUGHT IN A BACK PACK FOR ME AND LEFT IT AT SECURITY." PT SEEMED CONCERNED ABOUT HIS BELONGINGS. THIS NURSE REASSURED HIM THAT WE WOULD GET THEM FOR HIM. IS PERFORMED X 3 TOERATED O2 O2 INCREASED TO 91, BUT THEN DECREASED BACK TO 84 ON THERMO AT 35LPM AND 65 fiO2. THERMO INCREASED TO 40LPM AND FiO2 40 WITH PT SIDE LYING TO THE RIGHT. PT 02 INCREASED TO 90-92% PT DENIES NAUSEA AND VOMITING, REPORTS DIARHHEA X 3 DAYS. PT CURRENTLY LYING TO THE RIGHT SIDE. PT JOKING WITH THIS NURSE. PT VERBALIZING UNDERSTANDING WITH EDUCATION REGADRING REST AND ROTATING POSITIONS. PT REPORTS "AFTER THIS SHOW I WILL LAY ON MY STOMACH." BED RAILS X 2 UP. CALL LIGHT IN REACH.
--- NOTE | 2021-07-27 13:59 | NUR ---
IN TO CHECK ON PT. PT SIDE LYING TO THE LEFT, GUN CLUB MANAGER AND AT THE BEDSIDE. PT WITH EYES OPEN, CLEAR SPEECH. PT ALERT. FOWLERS POSISTION. NO SOB NOTED. SKIN WARM AND COLOR WNL FOR PT. NO CONCERNS OR REQUESTS AT THIS TIME. BED RAILS UP, CALL LIGHT IN REACH.
--- NOTE | 2021-07-27 14:45 | NUR ---
THIS RN TO ROOM TO CHECK ON PT. PT TEARFUL AND MILDY AGITATED. PTS REPORTS THEY JUST FINISHED TALING WITH CASE MANAGMENT AND HAD A DIFFICULT CONVERSATION THAT UPSET THE PT. VITAL SIGNS STABLE. PT DENIES PAIN AND NAUSEA. PT ENCORUAGED TO REST. WARM BLANKET PROVIDED. IV ASSESSED, WNL. IV ABX STARTED. PT DENIES ADDITIONAL REQUESTS OR COMPLAINTS. CALL LIGHT WIHTIN REACH. BED RAILS UP. FAMILY AT BESIDE.
--- NOTE | 2021-07-27 15:00 | NUR ---
Spoke with pt and his . Attempted to discuss plan of their wishes to proceed. We discussed understanding of their discussion with Dr. Yan on admission yesterday. understood they could admit as OBS and stay until pt passes. Lengthy discussion concerning critical access and pt need to receive treatment and medical need to be admitted as IP. Pt is OBS and would need to be admitted as an IP. Discussed Dr. East is the incoming DrPillo and I will discuss with her if she feels pt qualifies for IP admission. cont. to want to seek treatment, but also considering hospice. States she does not have care givers and family is unable to care for pt. She also states they cannot afford caregivers, but then states they may be able to. I will get a [employer] brochure for to check for hiring a cg.
--- NOTE | 2021-07-27 15:07 | NUR ---
IN TO CHECK ON PT, AT BEDSIDE. PT WITH HOB UP NEAR HIGH FOWLERS POSITION. HEART REG, LUNGS CLEAR WEITH CRAKLES IN BILATERAL BASES. ABS SOFT NOPN-TENDER, HYPOACTIVE BT X 4. DENIES NAUSEA AND VOMITING. DENIES NUM,MAGDALENA AND TINGLING. PUPILS ROUND ADN REACTIVE. PT SLEEPY. NO AGITATION NOTED. URINE OUTPUT POOR. VS STABLE, PT A LITTLE TACHY THIS AFTERNOON. RR 24, ALL OTHER VS WNL. NO SOB NOTED. O2 92 ON 10L NC, TOLERATING WELL. PT HAS HAD MANY VISITORS TODAY, INCREASED FATIGU THIS AFTERNOON. PT REMIANS WEAK AT THIS TIME. EXPRESSED CONCERN WITH WHAT FAMILY IS GOING TO DO THEY ARE AWARE OF PT WISHES. IS CONCERNED HOW THEY WILL BE ABLE TO GET OXYGEN OUTSDIDE OF THE HOSPITAL. SHE STATES " WE ARE WAITING TO TALK WITH DR. WEBSTER REGARDING THEIR OPTIONS AT THIS TIME. PT REPOSITIONED TO THE RIGHT SIDE. NO OTHER CONCERS OR REQUESTS AT THIS TIME. BED RAILS UP. CALL LIGHT IN REACH.
--- NOTE | 2021-07-27 15:30 | NUR ---
Spoke with Dr. East incoming Hospitalist. She was able to review chart and feels pt would qualify for status change due to pts dx of PE and need for anticoagulation. She would like to discuss with family. I will call pts daughter to be with mom when plan is discussed.
--- NOTE | 2021-07-27 16:20 | NUR ---
Daughter arrived, Dr East, and myself to empty room to discuss plan. Dr East discussed options with daughter and and would like pt admitted and treatment for PE to be started. She and daughter have called hospices in area and recieved they same info I have, neither is available untill mid or end of next week. [facility] to hold a place for next week. Family will discuss plan. Dr East was very clear, pt will not recover, but treatment could buy some time. stating they have been able to extend his life for the last year and she is wanting to continue to do so.
--- NOTE | 2021-07-27 16:22 | NUR ---
IN TO SEE PT IN RESPONSE TO CALL LIGHT. REPORTS THAT PT IS C/O NAUSEA, PRN ZOFRAN GIVEN PER ORDER. TOLERAED WELL. DAUGHTER JOSHUA ARRIVED AT THIS TIME. CONTINUES TO BE ATT BEDSIDE. NO OTHER CONCERS OR REQUEST AT THIS TIME. BED RAILS UP CALL LIGHT IN REACH.
--- NOTE | 2021-07-27 16:45 | NUR ---
Called [facility] and spoke with Mavis carey. She will place pt on their list and let us know Friday when they will be available.
--- NOTE | 2021-07-27 17:44 | NUR ---
IN TO CHECK ON PT. ORAL CARE PROVIDED. PT REPORTS NAUSEA HAS RESOLVED. PT DENIES PAIN AT THIS TIME. IV TO R AC FLUSHED, NOP S/SX OF PHELIBITIS OR INFILTRATION NOTED. IV FLUIDS RESTARTED. PT REPORTS TO THIS NURSE I AM COMFORTABLE." RIGHT AREM PROPPED UP ON ANOTHER PILLOW. BS WITHIN RANGE, NO HUMALOG GIVEN PER ORDER. NO OTHER CONCERNS OER REQUESTS AT THIS TIME. BED RAILS UP. CALL IGHT IN REACH.
--- NOTE | 2021-07-27 18:23 | NUR ---
PT O2 VS STABLE DURING SHIFT, A LITTLE TACHY WITH ELEVATED RR 24-28. FAMILY AT THE BEDSIDE MUCH OF THE DAY. PT WOTH C/O NAUSEA, PRN ZOFRAN GIVEN THIS AFTERNOON. PT REPORTS ZOFRAN AFFECTIVE, NAUSEA RESOLVED AT THIS TIME. LAST BS 104, NO SSI HUMALOG NOT GIVEN PER ORDER. HOSPICE CONSULT IN PLACE AT THIS TIME. IV FLUIDS INCREASED TO 75ML/HR. PT MORE ALERT THIS AM, AFEBRILE DURING SHIFT. INCREASED FATIGUE THIS AFTERNOON.
--- NOTE | 2021-07-27 18:58 | NUR ---
MURSE TO ROOM STATING PT HAD A ALOT OF SPUTUM IN HIS MOUTH. SUCTION PERFORMED PT TOLERATED WELL. THIS NURSE PT MOUTH WITH MOIST TOOTHETTE. PT TOLERATED SUCTION WELL. NO SOB OR OTHER S/SX OF RESPIRTORY DISTRESS N OTED. NO OTHER CONERNS OR REQUEST AT THIS ITME. DAUGHHTER AT BEDSIDE. BED RTAILS UP CALL LIGHT IN REACH.
--- NOTE | 2021-07-27 19:05 | NUR ---
SHIFT REPORT RECEIVED FROM HUMA VASQUEZ AT BEDSIDE. pt AWAKE AND RESTING IN BED, HOB ELEVATED WITH ASPIRATION PRECAUTIONS IN PLACE, SUCTION CONNECTED AND AVAILABLE AT BEDSIDE. IV FLUIDS INFUSING DIRECTED, SITE WNL. pt LOOKS RELAXED AND COMFORTABLE AT THIS TIME, DAUGHTER JOSHUA IN ROOM. CALL LIGHT IN REACH.
--- NOTE | 2021-07-27 19:43 | NUR ---
NEW BAG IV FLUIDS HUNG AND INFUSING DIRECTED, IV SITE WNL. NO ADDITIONAL NEEDS VERBALIZED. CALL LIGHT IN REACH.
--- NOTE | 2021-07-27 20:30 | NUR ---
IN TO GET VITALS, I&Os, CATH CARE COMPLETE, WILL BE BACK IN TO BOOST PT IN BED WITH MORE ASSISTANCE, NO FURTHER NEEDS AT THIS TIME
--- NOTE | 2021-07-27 21:00 | NUR ---
IN TO ASSIST RN WITH BOOSTING AND TURNING PT, PILLOWS UNDER BOTH HIPS, PT HAS HOME CUSHION UNDER REAR AND PILOW UNDER RIGHT ARM FOR PTs COMFORT, TRASH EMPTIED, NO FURTHER NEEDS AT THIS TIME
--- NOTE | 2021-07-27 21:15 | NUR ---
EVENING ASSESSMENT COMPLETE, SCHEDULED MEDS GIVEN (SEE EMAR). IV SITES X2 WNL AND FLUSHES EASILY. pt NPO, HOB RAISED WITH ASPIRATION PRECAUTIOSN IN PLACE. BOOSTED IN BED, PILLOWS UNDER BILATERAL HIPS WITH PERSONLA PILLOW IN PLACE. VSS, pt DENIES PAIN. REPORTS NAUSEA, PRN ZOFRAN GIVEN, SEE EMAR. BOWEL TONES HYPOACTIVE. PRABHAKAR PATENT, CATH CARE RECENTLY DONE BY TERESA RICHMOND. SKIN BRUSIED AND OVERALL VERY FRAGILE. ALLEVYN TO BUTTOCKS, WILL MONITOR. NO ADDITIONAL NEEDS, CALL LIGHT IN REACH. DAUGHTER JOSHUA REMAINS IN ROOM.
--- NOTE | 2021-07-27 21:33 | NUR ---
PT'S FAMILY SAID PT IS FEELING NAUSEOUS. SOFÍA LUNDBERG AND PRIMARY RN GERRI ALREADY IN ROOM, SHE WILL ADMINISTER IT WITH PT'S OTHER EVENING MEDICATIONS.
--- NOTE | 2021-07-27 22:22 | NUR ---
IN TO CHANGE PT DUE INCONT BM, NEW CHUX AND DRAW SHEET IN PLACE, PT REMAINS FLOATED AT BOTH HIPS, PILLOW UNDER ARM, NO FURTHER NEEDS
--- NOTE | 2021-07-27 22:40 | NUR ---
SCHEDULED FLAGYL INFUSING DIRECTED, IV SITE WNL. HOB ELEVATED AND ASPIRATION PRECAUTIONS IN PLACE. BOTH pt AND DAUGHTER JOSHUA DENY NEEDS, CALL LIGHT IN REACH.
--- NOTE | 2021-07-27 23:25 | NUR ---
IN ROOM FOR IV BEEPING, IV ABX COMPLETE. IV SITE REMAINS WNL. HOB REMAINS ELEVATED TO 50-60 DEGREES, BILATERAL HIPS REMAIN FLOATED. pt DECLINED REPOSITIONING, EDUCATION PROVIDED. pt ALSO DECLINES ORAL CARE, EDUCATION PROVIDED, AGREES TO CHAPSTICK. DAUGHTER JOSHUA REMAINS IN ROOM, CALL LIGHT IN REACH.
--- NOTE | 2021-07-27 23:36 | NUR ---
VALENTÍN BECKFORD AT RN STATION AND TO TAKE OVER FOR VALENTÍN LEWIS. UPDATE PROVIDED ON pt AND POC FOR SHIFT. QUESTIONS ANSWERED, VALENTÍN BECKFORD STATES, "WE'RE GONNA TAKE HIM HOME ON HOSPICE AND DR WEBSTER IS LEADING THAT PROCESS". NO NEEDS AT THIS TIME.
--- NOTE | 2021-07-27 23:44 | NUR ---
in with rn to reposition pt per pt request, pillow removed from right hip, pillow back under lower legs, pillow under arms, no further needs at this time
--- NOTE | 2021-07-28 00:33 | NUR ---
CALL LIGHT ANSWERED, IV PUMP BEEPING. ISSUE RESOLVED. IV SITE WNL. DAUGHTER ANALY IN ROOM AND VERABLIZES THAT pt LOOKS MORE "RESTLESS" TONIGHT. EDUCATION PROVIDED AND QUESTIONS ANSWERED. HOB REMAINS ELEVATED TO 50-60 DEGREES. NO ADDITIONAL NEEDS VERBALIZED, CALL LIGHT IN REACH.
--- NOTE | 2021-07-28 02:05 | NUR ---
ASSISTED PRIMARY RN GERRI TO REPOSITION PT, PILLOW UNDER R HIP AND BOOSTED. GERRI RN REMAINS IN ROOM WITH PT AT THIS TIME. FAMILY DENIES NEEDS.
--- NOTE | 2021-07-28 02:30 | NUR ---
SCHEDULED MEDICATION GIVEN, SEE EMAR. pt AWAKE AND HAS SLEPT VERY LITTLE THIS SHIFT. APPEARS MORE FLAT AND RESERVED THIS SHIFT. INITIALLY REFUSED ORAL CARE BUT THEN AGREED. HOB REMAINS ELEVATED WITH ASPIRATION PRECAUTIONS IN PLACE. IV SITES X2 WNL AND FLUSH EASILY. VSS, RR 24, USE OF ACCESSORY MUSCLES NOTED, BUT NO DISTRESS. THERAPEUTIC COMMUNICATION PROVIDED AND pt ENCOURAGED TO REST. NO FURTHER NEEDS, CALL LIGHT IN REACH. DAUGHTER ANALY REMAINS IN ROOM.
--- NOTE | 2021-07-28 03:42 | NUR ---
DAUGHTER ANALY CAME TO RN STATION AND STATES pt LOOKS TO BE IN PAIN AND IS GRUNTING WITH BREATHING. THIS RN AND INTEGRATED CIRCUIT LAYOUT DESIGNER PIA IN ROOM TO ASSESS. HOB REMAINS ELEVATED AT 50-60 DEGREES. pt REPEATEDLY STATES "OW", WHEN ASKED BY DAUGHTER ANALY IF pt IS HAVING CHEST PAIN, pt STATES, "YES". WHEN ASKED IF pt IS HAVING BACK PAIN BY THIS RN, pt STATES, "YES". WHEN ASKED WHERE pt IS HAVING PAIN, pt DOES NOT SPECIFY LOCATION. VSS, RR 24-26 AND SOMEWHAT LABORED WITH USE OF ACCESORY MUSCLES. BP WNL, HR 108. DIFFICULT TO DETERMINE IF pt IS BEING LED REGARDING PAIN LOCATION. ON PHONE WITH DR WEBSTER AND MADE AWARE OF ALL INFORMATION ABOVE. TELEPHONE ORDERS READ BACK FOR 1-2MG MORPHINE IV Q2H PRN FOR PAIN.
--- NOTE | 2021-07-28 03:52 | NUR ---
IN TO ASSIST RT, PLACING PILLOW DOWN UNDER SHOULDERS PER PTs COMFORT, DAUHTER AT BEDSIDE
--- NOTE | 2021-07-28 04:15 | NUR ---
1MG IV MORPHINE DILUTED GIVEN OVER 5 MINUTES, IV SITE WNL AND FLUSHES EASILY. DAUGHTER DARCY IN ROOM, UPDATED ON pt STATUS. QUESTIONS ANSWERED. NO FURTHER NEEDS, CALL LIGHT IN REACH.
--- NOTE | 2021-07-28 06:15 | NUR ---
IN TO GET VITALS, PT NOTICABLE UNCOMFORTABLE VIA DAUGTHER AND THIS SCOREKEEPER, PRABHAKAR EMPTIED, VSS OTHER THEN RR INCREASED, RN INFORMED, IN TO CHECK ON PT, WILL BE BACK IN TO ASSIST WITH REPOSITIONING, NO FURTHER NEEDS
--- NOTE | 2021-07-28 06:41 | NUR ---
uo since 0200 20mls via catheter, dr banuelos made aware, no new orders received at this time. dr banuelos also aware of pt's minimal to no sleep this shift.
--- NOTE | 2021-07-28 06:50 | NUR ---
SCHEDULED IV ABX INFUSING DIRECTED ALONG WITH IV MAINTENANCE FLUIDS, IV SITES X2 WNL. 1MG IV MORPHINE ALSO GIVEN FOR GENERALIZED PAIN, DAUGHTER DARCY IN ROOM. RR RECENTLY 27, NOW APPROX 24, LABORED RESPIRATIONS SOMEWHAT IMPROVING. pt A/O TO SELF, ONLY ANSWERING YES OR NO QUESTIONS AND HAS A VERY FLAT AFFECT. DR WEBSTER AT RN STATION AND UPDATED, NO NEW ORDERS. pt REPOSITIONED IN BED AND BOOSTED, PILLOW UNDER LEFT HIP WITH HELP FROM SERGEY VASQUEZ. NO BM IN DEPENDS NOTED. CALL LIGHT IN REACH. HOB REMAIN ELEVATED TO APPROX 50-60 DEGREES.
--- NOTE | 2021-07-28 07:30 | NUR ---
REPORT RECEIVED FROM SERGEY TALLEY. SERGEY NJ ASSUMING CARE OF PT WITH ASSISTANCE FROM THIS RN. PT DENIES PAIN. PT ANSWERING QUESTIONS INTERMITTANTLY WITH ONLY 1 WORD ANSWERS MOSTLY "YES" AND "NO." LABORD BREATHING NOTED WITH ACCESSORY MUSCLE USE AND AND ABDOMINAL MUSCLE USE NOTED. <10ML URINE NOTED IN PRABHAKAR CATHETER. EYES GLASSY AND PT IS STARING OFF INTO SPACE, BLINKS OCCATIONALLY, FOLLOWING MINIMAL DIRECTIONS. FRIGHTENED WITH MOVEMENT DURING REPOSITIONING. PT REPOSITIONED TO RIGHT SIDE LYING, SUPPORTED WITH PILLOWS. HEAD OF BED REMAINS ELEVATED AT 50 DEGREES. PT UNABLE TO TOLERATE LOWERING OF THE HEAD OF BED EVEN TO 30 DEGREES. PTS DAUGHTER LAEH AT BEDSIDE, UPDATED ON PTS STATUS. DR. WEBSTER UPDATED ON PT DECLINING STATUS, NO NEW ORDERS AT THIS TIME. CALL LIGHT WITHIN REACH. BED RAILS UP. WARM BLANKETS PROVIDED.
--- NOTE | 2021-07-28 07:33 | NUR ---
IN TO CHECK ON PT WITH SERGEY FALL MA. PT IN BED WITH HOB ELEVATED GREATER THAN 60 DEGREES. DAUGHTER LEAH IN ROOM AT BEDSIDE. PT ABLE TO ANSWER YES AND NO QUESTIONS. DENIED PAIN WHEN ASKED. SPEECH AND VERBAL RESPONSE SLOW. EYES GLASSY IN APPEARANCE. PT BREATHING EFFORT WITH USE OF ACCESSORY MUSLCES AND ABDOMINAL MUSCLES. PT REPOSITIONED TO THE LEFT. WARM BLANKETS PROVIDED. HOB ELEVATED GREATER THAN 60 DEGREES. NO OTHER CONCERNS OR REQUEST AT THIS TIME. BED RAILS UP. CALL LIGHT IN REACH.
--- NOTE | 2021-07-28 08:20 | NUR ---
MORNING ASSESSMENT AND MEDICAITON DUE. THIS RN AT BEDSIDE WITH SERGEY NJ DURING ASSESSMENT AND MEDICAITON ADMINISTRATION. PT MUCH MORE LETHARGIC THAN DURING YESTERDAY'S ASSESSMENT. PT GRUNTS AT TIMES, AND OCCATIONALLY ANSWERS YES OR NO. PT OTHERWISE UNRESPONSIVE. EYES OPEN AND STARYING INTO SPACE, GLASSY EYE APPEARNCE CONTINUES. PT DOES NOT FOLLOW DIRECTIONS. DOES NOT CIVIL ENGINEERING TEACHER THIS RN'S HANDS OR MOVE TOES/FEET WHEN ASKED. PT DOES PULL AWAY FROM PAINFUL STIMULI. LUNG SOUNDS CLEAR IN UPPER LOBES BUT DEMINISHED IN BASES WITH CRACKELS NOTED ON RLQ. PT REMAINS ON 10L O2 BY HUMIDIFED NC. OXGYEN SAUTRATION 90-92%. PT CONTINUES TO BE TACHYCARDIC WITH HEART RATE 100-110'S. PTS BOTTOM LIP TREMBELING WITH RESPIRATIONS. YELLOW SKIN TONE NOTED WITH JAUNDICE NOTED TO SCLERA OF EYES. PTS FAMILY UPDATED ON PLAN OF CARE, MULTIPLE FAMILY MEMBERS AT BEDSIDE INCLUDING PTS , LEAH, AND PTS SON. PT REMAINS POSITIONED ON RIGHT SIDE. MEDICATIONS GIVEN BY SERGEY NJ. PTS FAMILY ENCORUAGED TO CALL FOR PT AT ANY TIME. >10ML URINE OUTPUT IN PRABHAKAR CATHETER. NO ADDITIONAL REQUESTS OR CONCERNS FROM FAMILY MEMBERS AT THIS TIME. BED RAILS UP. CALL LIGHT WITHIN REACH.
--- NOTE | 2021-07-28 08:20 | NUR ---
IN TO SEE PT ASSESSMENT AND MEDICATIONS DUE. MULTIPLE FAMILY MEMBERS PRESENT AT BEDSIDE. EYES CONTINUE TO HAVE GLASSY APPEARANCE. PUPILS ROUND AND REACTIVE. PT WITH SLOW RESPONSE VERBAL RESPONSES WHEN HE IS ABLE. PT WITH FLAT AFFECT. PT CONTINUES TO BE BED BOUND AND NPO AND THIS TIME. HEART REG RATE AND RHYTHM. LUNGS WITH CRACKLES IN BASES AND DIMINSHED UN UPPER LOBES BILATERALLY. NO SOB NOTED. BRETHING EFFORT WITH CONTINUED USE OF ACCESSORY MUSCLES AND ABD. CONTINUES TO HAVE MINIMAL RESPONES TO QUESTIONS, AT TIMES USES "YES" AND "NO". PT CONTINUES TO HAVE WEAKNESS TO EXTREMEITES, BUT TRIES TO ASSIT WITH LIFTING UPPER EXTREMITES. PT HAVING DIFFICULTY FOLLWING VERBAL DIRECTIONS AT TIMES, LIKEY DUE DECREASED PROSCCING TIMES AND CHANGE MENTAL STATUS. STRONG BILATER RADIAL PULSES, WEAK THREADY BILATERL PEDAL PULSES. SKIN REMIAN PALE, FRAGIL, DRY WITH AREAS OF BRUISING. PT CONTINUES TO HAVE HYPOACTIVE BT, ABD SOFT, NO MASSESS ON PALPATION, NON-TENDER. PT UO SIGNIFICANTLY DECREASED FROM YESTERDAY. WARM BLACKETS PROVIDED. NO OTHER CONCERNS OR REQUESTS AT THIS ITME. BED RAILS UP, CALL LIGHT IN REACH.
--- NOTE | 2021-07-28 09:06 | NUR ---
PT REPOSITIONED WITH SERGEY VILCHIS. FAMILY IN THE ROOM. ASKED FOR EYE DROPS FOR PT. SERGEY VILCHIS NOTIFIED OF THIS. PRABHAKAR EMPTIED. NO FURTHER NEEDS AT THIS TIME.
--- NOTE | 2021-07-28 10:10 | NUR ---
IN TO CHECK ON PT. PT CONTINUES TO BE SURROUNDED BY MULTIPLE FAMILY MEMBERS ATT HTE BED SIDE. PT ASSESED FOR PAIN. FAMILY REPORTS PT HAS BEEN MOANING INTERMITTENTLY. FLACC SCALE 2/10. 1 MG IV MS GIVEN OVER 5 MINUTES DILUTED WITH NS. PT TOLERATED WELL, NO NAUSEA OR EMESIS ATT THIS TIME. THIS NURSE ASSISTED BY SERGEY MORGAN AND SERGEY DUEÑAS TO REPOSITION PT IN BED IN SUPIN POSITION ON PERSONAL COCCYX PILLOW, COCCYX DRESSING C/D/I, CHANGED BY SERGEY DUEÑAS. LINENS CHANGED. PT HAD SMALL BM. AT THS TIME, CONFIRMATION WITH DR. WEBSTER BY SERGEY DUEÑAS TO HOLD VANCOMYCIN THIS AM R/T WORSENING KIDNEY FUNCTION AND DECREASED URINE OUTPUT AT THIS TIME. PT EDUCATION PROVIDED TO FMAILY BY SERGEY DUEÑAS REGARDING CURRENT METAL STATE AND FUNCTION EXPLAINING THAT PT CAN STILL HEAR US WHEN WE ARE TALKING WITH HIM AND ENCOURAGED FAMILY TO CONTINUE DOING SO. IV TO RIGHT AC AND RFA REMIAN PATENT AT THIS TIME NO S/SX OF INFILRTION OR PHELIBITIS. WARM BLANKETS PROVIDED ATT HIS TIME. SERGEY UDEÑAS INFORMED FAMILY THAT DR. WEBSTER HAS ORDERED SOME EYE DROPS FOR PT PER FAMILY REQUEST AND PT COMFORT. COTTON BAG SEWER CHLOE IN TO DO ORAL CARE. PT CONTINUES TO HAVE GOOD OXYGEN SATURATION IN THE 90'S ON 10LNC. NO OTHER CONCERNS, REQUESTS AT THIS ITME. BED RAILS UP, CALL LIGHT IN REACH.
--- NOTE | 2021-07-28 10:23 | NUR ---
THIS RN TO ROOM TO CHECK ON PT WITH CLEM RINCON. PT RESTING IN BED WITH HEAD OF BED ELEVATED TO 50 DEGREES. PT CONFIRMS PAIN WITH A NOD OF THE HEAD. OCCATIONAL SOUNDS BUT PT CONTINUES TO BE LARGLY UNRESPONSIVE, DOES WITHDRAWL FROM PAIN. FLACC SCORE OF 2 NOTED. PT TENDER TO ABDOMINAL PALPITATION. FAMILY REQUESTS PT HAVE PAIN MEDICATION. MEDICATION ADMINISTERED BY SERGEY NJ. PTS FAMILY REQUESTS EYE DROPS FOR PT. DR. WEBSTER CONSULTED, ORDER GIVEN AND PLACED WITH REPEAT BACK. AWATING EYE DROPS TO ARRIVE FROM [facility]. NEW IV FLUID BAG HUNG. PT REPOSITIONED TO BACK WITH HOME PILLOW UNDER COCCYX PLACED PER FAMILY REQUEST. ALLEVYN TO COCCYX CHANGED. HEAD OF BED REMAINS ELEVATED. CALL LIGHT WITHIN REACH. BED RAILS UP. FAMILY AT BEDSIDE.
--- NOTE | 2021-07-28 11:20 | NUR ---
EYE DROPS ARRIVED FROM [facility]. GIVEN ORDERED. FLACC SCORE OF 2/10. FAMILY REPORTS PT "SEEMS MORE COMFORTABLE NOW." PT RESTING ON BACK, EYES REMAIN OPEN WITH MINIMAL BLINKING. ABDOMINAL MUSCLE USE WITH BREATHING CONTINUES. FAMILY REPORTS NO ADDITIONAL NEW REQUESTS OR CONCERNS AT THIS TIME. BED RAILS UP. CALL LIGHT WITHIN REACH. MULTIPLE FAMILY MEMBERS AT BEDSIDE.
--- NOTE | 2021-07-28 12:08 | NUR ---
PT AWAKE IN BED. PT REPOSITIONED ON PILLOW FROM HOME. FAMLILY IN ROOM. BED BATH GIVEN. WARM BLANKETS, FRESH LINEN, CATHETER CARE DONE. FIXTURE REPAIRER FABRICATORAbelino BOSSI IN ROOM TO HELP. NO FURTHER NEEDS
--- NOTE | 2021-07-28 12:09 | NUR ---
THIS RN TO ROOM TO CHECK ON PT. SABINA AND TERESA CORDOBA'Fede, AT BEDSIDE GIVING PT A BED BATH. CATHETER CARE DONE BY ORVILLE CORDOBA. PT NOTED TO BE FISH MOUTH BREATHING, RR = 24. PT REMAINS ON 10L O2 BY HIGH FLOW HUMIDIFIED NC. OXGYEN SATURATION OF 96% WITH HEART RATE 106. BLOOD SUGAR TAKEN, SLIDING SCALE INSULIN GIVEN (SEE MAR). PT REPOSITIONED TO RIGTH SIDE PER WIFES PREFERENCE. SUPPORTED WITH PILLOWS. WARM BLANKETS PROVIDED. UPDATED ON PTS STATUS. NO NEW ORDERS AT THIS TIME. BED RAILS UP. CALL LIGHT WITHIN REACH. PTS AT BEDSIDE.
--- NOTE | 2021-07-28 12:21 | NUR ---
PASTORAL CARELILO, CALLED AND UPDATED. STATES HE WILL BE IN TO VISIT WITH FAMILY.
--- NOTE | 2021-07-28 13:30 | NUR ---
THIS RN TO ROOM TO CHECK ON PT. PT RESTING ON BACK WITH HEAD OF BED ELEVATED TO 50 DEGREES. DAUGHTER WINDY AT BEDSIDE SITTING WITH PT. "O" SIGN, FISH MOUTH BREATHING, CONTINUE. PT MAKES OCATIONAL NOISES BUT IS OTHERWISE NONVERBAL. PTS LEAVING TO TAKE A WALK. FAMILY REPORTS PT DOES NOT APPEAR TO BE IN ANY PAIN AT THIS TIME. FLACC SCORE UNCHANGED, 2/10. CALL LIGHT WITHIN REACH. BED RAILS UP.
--- NOTE | 2021-07-28 13:47 | NUR ---
PT AWAKE IN BED WITH FAMILY AT BEDSIDE. NO FURTHER NEEDS AT THIS TIME
--- NOTE | 2021-07-28 14:18 | NUR ---
IN TO CHECK ON PT MEDICATIONS AND ASSESSMENT DUE. DAUGHTER AND AT BEDSIDE. HERAT REGULAR. LUNGS CLEAR ON TH LEFT. CONTINUES TO HAVE HYPOACTIVE BOWEL TONES. PT LAYIN BED GREATER THAN 60 DEGREES WITH HOLDING HIS HAND AT THE BEDSIDE. EYE REMAIN GLASSY IN APPEARS. PUPILS REMIAN REACTIVE. PT IS NON-RESPONSIVE AT THIS TIME. PT UNABLE TO FOLLOW VERBAL DIRECTIONS. STRNGTH REMAINS WEAK. IV FLUSHING WELL. NO S/SX OF PHELIBITIS. THIS NURSE INFORMED FAMILY ABOUT MEDICATION CHANGES FOR FLAGY AND HYDROCORTISONE IV WOULD BE DECREASING FROM 2 X A DAY TO 1 TIME A DAY STARTING IN THE AM R/T CONTINUED DECLINE IN KIDNEY FUNCTION. AND DAUHGHTER REPORTED THEY ARE AWARE OF THE DECLINE IN PT KIDNEY FUNCTION. PUPILS SLUGGISH AND PT UNABLE TO FOLLOW LIGHT. PT LYING STILL NOT ABLE TO MOVE INDEPENDNETLY AT THIS TIME. PT BELLY BREATHING AND USE OF ACCESSORY MUSCLES AT THIS TIME. O2 95% ON 10 LNC. NO SOB NOTED. CRACKLES NOTED BILATERAL IN LUNGS. PT REMAINS TACHCARDIC ATT HIS TIME PULSE 110 VIA MONITOR. NO EDEMA NOTED. NO CHANGE IN RADIAL AND PEDAL PULSES AT THIS TIME. CONTINUES TO HAVE DECERASED URINARY OUTPUT. MD AWARE CHANGE IN PT CONDITION. PRN EYE DROPS GIVEN PER FAMILY REQUEST. POSTION CHANGE TO THE LEFT SIDE. NO OTHER CONCERNS OR REQUESTS At THIS TIME. BED RAILS UP. CALL LIGHT IN REACH. SERGEY DUEÑAS PROVIDED FUTHER EXPLANATION TO FAMILY THE NEED TO CONTINUE WITH INSULIN R/T CURRENT INFECTION.
--- NOTE | 2021-07-28 15:17 | NUR ---
Per pastor Gallego, family requesting to use [facility].
--- NOTE | 2021-07-28 16:10 | NUR ---
SERGEY VASQUEZ CALLED AND REQUESTED I VISIT WITH PT AND FAMILY. PT SITTING UPRIGHT IN BED, IV IN USE AND O2 NC. PT'S EYES GLASSY, BREATHES THRU MOUTH AND IS UNRESPONSIVE. DAUGHTER JOSHUA IS HERE WITH HER MOTHER GEOFF. FAMILY KNOWS TIME IS CLOSE. MADE DECISION TO USE [facility]. THEIR CHAIR HAS BEEN BY FOR VISIT-THIS WAS GOOD FOR THEM AND FAMILY EARLIER TODAY. HAD PRAYER TOGETHER, WILL CONTINUE TO BE HERE IF/WHEN NEEDED.
--- NOTE | 2021-07-28 16:30 | NUR ---
IN TO CHECK ON PT. AT BEDSIDE HOLD PT HAND. DAUGHTER JOSHUA ALSO PRESENT IN ROOM AT THIS ITME. FAMILY REPORTS PT "DOESNT SEEM TO BE HAVING AN PAIN, HE HAS NOT BEEN MOANING OR ANYTHING." PT PT REPOSITIONED WITH ASSISTANCE OF JEWEL SUPERVISOR TO BACK HOB ELEVATED ~ 65 DEGREES. NO OTHER CONCERNS OR REQUESTS AT THIS TIME. BED RAILS UP. CALL LIGHT IN REACH.
--- NOTE | 2021-07-28 16:48 | NUR ---
THIS RN TO ROOM TO CHECK ON PT. PT RESTING ON BACK, SUPPORTED WITH PILLOWS, HEAD OF BED REMAINS ELEVATED TO 50 DEGREES. BLOOD SUGAR WITHIN RANGE, NO INSULIN NEEDED. PTS FAMILY AT BEDSIDE. FLACC SCORE OF 1/10. FAMILY CONFIRMS THAT PT IS COMFORTABLE AT THIS TIME. CALL LIGHT WITHIN REACH. BED RAILS UP. NO ADDITIONAL REQUESTS OR CONERNS AT THIS TIME.
--- NOTE | 2021-07-28 17:45 | NUR ---
family reports p[t having pain. pt pain 3/10 on tthe flacc scale. pt given 1 mg ms prn per order. no vomiting r/t administration, toerated administration well at this time. family continues to be at bed side. no further concerns or requts at this time. bed rails up call light in reach.
--- NOTE | 2021-07-28 18:06 | NUR ---
pt condition continues to decline. family at bedside all shift. patient pain 2-3, prn ms 1mg given x 2. ms effective in managing pain. no sob noted. pt continues to use accessory muscle for breathing effort. breaths continue to be shallow. eyes cotinue to glassy in appearance. pt remians tachcardic with RR 24-28, md aware r/t change in condition. bed bath and oral care completed. urine output continues to be inadequate. tete held this am, per md order. new order for artificial tears 1-2 drops Q 1 started this shift. tete troph and bmp to be drawn in the am. flagyl and cefepime orders changed to QD starting tomorrow. pt not responsive mostly, with intermittent groans and upper extremtity movement.
--- NOTE | 2021-07-28 18:28 | NUR ---
in to reposition pt. rrepositioned to the right side. daughter inroom at bedside. urine output 60mLs, concentrated. daughter reports MS effective. pain now 11/08. no other concerns or requests at this time. bed rails up. vs obtained. call light in reach.
--- NOTE | 2021-07-28 18:31 | NUR ---
PT TEMP 100.3 ORALLY, PRN APAP SUPPOSITIRY GIVEN PER ORDER. PT PULLED UP IN BED. DAUGHTER REMAINS AT BED SIDE. NO OTHER CONCERNS OR REQUESTS ATTHIS TIME. BED RAILS UP, CALL LIGHT IN REACH.
--- NOTE | 2021-07-28 21:13 | NUR ---
IN TO REPOSITION PT, PILLOWS TO THE RIGHT SIDE, UNDER LEFT ARM, UNDER LEGS, NO FURTHER NEEDS AT THIS TIME, PT DOES NOT SEEM TO BE IN ANY DISTRESS OR DISCOMFORT AT THIS TIME
--- NOTE | 2021-07-29 00:15 | NUR ---
PT TO TURN PT, PILLOW UNDER LEFT SIDE, NO FURTHER NEEDS, PT RESTING AT THIS TIME
--- NOTE | 2021-07-29 00:46 | NUR ---
turned, hob elevated, o2 10L high flow, aspiration precautions, no sob noted f/c patent. legs elevated,family at bedside.
--- NOTE | 2021-07-29 02:10 | NUR ---
TURNED AND REPOSITIONED, HOB ELEVATED, ASPIRATION AND FALL PRECAUTIONS IN PLACE, DOES NOT OPEN EYES, NON VERBAL, ALL PROCEDURES EXPLAINED, COOP, F/C PATENT. O2 10L HIGH FLOW IN PLACE. FAMILY AT BEDSIDE
--- NOTE | 2021-07-29 04:26 | NUR ---
MEDICATED WITH MORPHINE 1MG IV
--- NOTE | 2021-07-29 05:10 | NUR ---
IN TO GET VITALS, PRABHAKAR EMPTIED, BOOSTED PT AND TURNED WITH PILLOWS UNDER THE RIGHT SIDE, NO FURTHER NEEDS AT THIS TIME
--- NOTE | 2021-07-29 05:12 | NUR ---
TURNED, COOP WITH ASSESSMENT AND ORAL CARE. F/C PATENT, DRAINBING SMALL AMOUNTS 60CC URINE, WILL NOTIFY MAD
--- NOTE | 2021-07-29 06:54 | NUR ---
TALKED TO DR SHEPARD RELATED TO ADMIT ASSESSMENT AND UNABLE TO COMPLE CXR, AND WEAK L WRSIT AND FEET, MUCH BETTER EYE TRACKING, MORE VERBAL BUT VERY WEAK EXTREMITIES., "OK ORDER 2V CXR AT 0800"
--- NOTE | 2021-07-29 07:04 | NUR ---
DR HAYDEN NOTIFIED OF PTS LOW UO FOR THIS SHIFT, NO NEW ORDERS.
--- NOTE | 2021-07-29 07:07 | NUR ---
REPORT RECEIVED FROM SERGEY ARRIAGA. PT RESTING IN BED WITH EYES CLOSED. ACCESSORY MUSCLE USE WITH BREATHING AND "O" SIGN STILL PRESENT, MD AWARE. FAMILY STATES PT "WAS A LITTLE AGITATED BUT HAS CALMED DOWN" SINCE THE MORPHINE WAS GIVEN. FLACC SCORE OF 1/10 AT THIS TIME. HEAD OF BED ELEVATED TO 45 DEGREES. FAMILY STATES PT APPEARS COMFORTABLE AT THIS TIME, PT ALLOWED TO REST. BED RAILS UP. CALL LIGHT WITHIN REACH.
--- NOTE | 2021-07-29 07:40 | NUR ---
MORNING ASSESSMENT AND MEDICATION DUE. PT RESTING IN BED, EYES CLOSED, BUT OPEN TO VOICE AND TOUCH. PT MOANS AND MAKES NOISES AT TIMES, NO INTELLIGABLE WORDS NOTED. PT DOES NOT ANSWER ANY OF THIS RN'S QUESTIONS. FLACC SCORE OF 1/10, MOANING ONLY NOTED WITH CARES AND REPOSITIONING. PT DOES NOT FOLLOW DIRECTIONS, MAKES NO EFFORT TO SQUEEZE THIS RN'S HAND. PT REPOSITIONED TO [facility] WITH HEAD OF BED ELEVATED TO 45 DEGREES, PTS HOME BUTTOCKS PILLOW PLACED. DEPENDS DRY, NO BOWEL MOVEMENT NOTED. PT CALMS AFTER REPOSITIONING, WARM BLANKETS PROVIDED. PUPILS WNL. PT DOES NOT TRACK FINGER OR MAKE EYE CONTACT, GLASSY EYES CONTINUE. EYES ARE NOTED TO ROAM AT TIMES AND MOVE ABOUT THE ROOM. PT CLOSING EYE LIDS TODAY. EYE DROPS APPLIED. FACE WASHED. UPPER LUNG SOUNDS CLEAR. CRACKELS NOTED IN BASES, DEMINISED LUNG SOUNDS IN BASES. PT USING ABDOMINAL MUSCLES TO BREATH, VERY SHALLOW BREATHS. OCCATIONAL COUGH NOTED, ESPICIALLY IF HEAD OF BED IS LOWERED. PT UNABLE TO MAINTAIN OXGYEN SATURATIONS ABOVE 90% ON 10L O2 BY HIGH FLOW NC. OXGYEN INCREASED WITH NO EFFECT. PT SWITCHED TO OXYMAKS ON 10L AND OXYGEN SATURATIONS CLIMB TO 94%. OXYMASK LEFT IN PLACE. TACHYCARDIA CONTINUES WITH HEART RATE OF 100-110'S. PT WITHDRAWLS FROM PAINFUL STIMULI. 46ML CLEAR CONCENTRATED YELLOW URINE REMOVED FROM AKI FOSTER MD AWARE OF INADEQUATE URINE OUTPUT. ALLEVYN TO COCCYX REMAINS C/D/I. PT RESTING WITH EYES CLOSED. FAMILY AT BEDSIDE. CALL LIGHT WIHTIN REACH. BED RAILS UP.
--- NOTE | 2021-07-29 09:30 | NUR ---
DR. WEBSTER TO BEDSIDE TO TALK WITH PT AND FAMILY. PT AND FAMILY VERBALIZE UNDERSTANDING OF PLAN OF CARE AND COMFORT MEASURES. FAMILY GIVEN TIME WITH PT. NO ADDITIONAL REQUESTS OR COMPLAINTS AT THIS TIME.
--- NOTE | 2021-07-29 10:40 | NUR ---
THIS RN TO ROOM TO CHECK ON PT. PT RESTING IN BED WITH EYES CLOSED. REPIRASTIONS NOTED, SHALLOW WITH ACCESSORY MUSCLE USE. FAMILY VERBALIZES UNDERSTANDING OF PLAN OF CARE. BOTH IV'S SALINE LOCKED. DEPEND REMAINS DRY. FAMILY REPORTS PT APPEARS COMFORTABLE AT THIS TIME, REQUESTS NO REPOSITIONING AT THIS TIME. WARM BLANKETS PROVIDED. BED RAILS UP. CALL LIGHT WITHIN REACH.
--- NOTE | 2021-07-29 11:58 | NUR ---
THIS RN TO ROOM TO CHECK ON PT. PT APPEARS COMFORTABLE, NO S/S OF DISTRESS NOTED. "O" SIGN CONTINUES WITH LABORED BREATHING, ACCESSORY MUSLCE USE NOTED. PT BOOSTED IN BED. FAMILY DECLINES REPOSITIONING STATING "HE IS REALLY COMFORTABLE LIKE THIS, WITH HIS PILLOW UNDER HIM." DIETARY CALLED FOR COMFORT TRAY REFILL, NO ADDITIONAL REQUESTS OR COMPLAINTS. CALL LIGHT WITHIN REACH. FAMILY AT BEDSIDE. BED RAILS UP.
--- NOTE | 2021-07-29 13:40 | NUR ---
THIS RN TO ROOM TO CHECK ON PT. PT RESTING IN BED ON RIGHT SIDE WITH HEAD OF BED ELEVATED TO 35 DEGREES. PT RECENTLY REPOSITIONED BY SANITIZER. FAMILY REQUESTS EYE DROPS FOR PT. APPLIED (SEE MAR). RR = 16, ABDOMINAL MUSCLE AND ACCESSORY MUSCLE USE NOTED, LESS FORCFULL. POSITIVE "O" SIGN CONTINUES. VITALS SIGNS AND ASSESSMENT HELD RELATED TO COMFORT CARE PARAMETERS. NO ADDITIONAL REQUESTS OR CONCERNS AT THIS TIME. CALL LIGHT WITHIN REACH. BED RAILS UP. FAMILY AT BEDSIDE.
--- NOTE | 2021-07-29 15:08 | NUR ---
THIS RN TO ROOM TO CHECK ON PT. PT CONTINUES RESTING ON RIGHT SIDE, SUPPORTED WITH PILLOWS. FAMILY REPLACED BLANKETS OVER PT STATING HE COOLED OFF. PT IS COOLER TO TOUCH AT THIS TIME. RR = 12, EVEN BUT LABORED, OCCATIONAL RATTEL WITH BREATHS NOTED. ORAL CARE PERFORMED, SUCTION ATTACHED DURING ORAL CARE. FAMILY REPORTS PT IS COMFORTABLE AT THIS TIME. BED RAILS UP. CALL LIGHT WIHTIN REACH.
--- NOTE | 2021-07-29 15:31 | NUR ---
PT HERE FOR ASPIRATION PNEUMONIA AND RIGHT SIDED P.E.s. PT TRANSITIONED TO COMFORT CARE THIS SHIFT RELATED TO WORSENING CONDITION. POLST FORM COMPLETED BY MD WITH FAMILY. PT REMAINS IN BED, REPOSITIONED Q2, WHEN TOELRATING AND PER FAMILY REQUEST. PRN MORPINE FOR PAIN OR AIR HUNGER. PT REMAINS UNRESPONSIVE BUT TO PAIN AND HARSH STIMULI. EYES DO NOT TRACK, OFTEN ROLLED TO BACK OF HEAD. LABORED BREATHING NOTED, OCCATIONAL RATTELING BREATHS NOTED. PRABHAKAR CATHETER IN PLACE WITH VERY MINIMAL OUTPUT. DEPENDS IN PLACE WITH FREQUENT CHECKS PERFORMED. IV'S BOTH SALINE LOCKED AT THIS TIME. PT TRANSITION TO 10L O2 BY OXYMASK THIS MORNING. VITAL ONLY TAKEN UPON FAMILY REQUEST. PRN MORPHINE FOR DISCOMFORT OR AIR HUNGER. EYE DROPS APPLIED, ORAL CARE COMPLETED. FAMILY AT BEDSIDE THROUGHOUT SHIFT.
--- NOTE | 2021-07-29 16:25 | NUR ---
FAMILY TO NURSES STATION STATING PTS CONDITION HAS CHANGED. THIS RN TO ROOM. PTS RESPIRATION SLOWED TO 10BPM, 3-4 BREATHS FOLLOWED BY 30 SECOND PERIODS OF APNEA. PTS SKIN TONES PALE. HEART TONES SLOWED TO 50-60BPM. EDUCATION DONE WITH FAMILY AND FAMILY ENCOURAGED TO CALL ANY OTHER MEMBERS THAT WOULD LIKE TO BE WITH [place]. CALLS MADE. THIS RN OFFERS TO CALL CORPORATE ACCOUNTANT, FAMILY STATES THIS IS NOT NECESSARY. ADDITONAL FAMILY MEMBERS ARRIVE. CHAIRS PROVIDED. PT DOES NOT APPEAR TO BE IN ANY DISTRESS, FAMILY DECLINES ADDITIONAL MEDICATION.
--- NOTE | 2021-07-29 16:45 | NUR ---
FAMILY REPORTS PT HAS STOPPED BREATHING. THIS RN TO ROOM. NO RESPIRATIONS OR HEART TONES HEARD. PUPILS DILATED AND NON REACTIVE. MD UPDATED AND TO BEDSIDE, TIME OF DECLARED AT 1645. MULTIPLE FAMILY MEMBERS AT BEDSIDE, FAMILY GIVEN QUIET TIME WITH PT. RUBBER GASKET INSPECTOR TRIMMER NOTIFIED, SHEETFED PRESS OPERATOR LILO CALLED.
--- NOTE | 2021-07-29 17:19 | NUR ---
FAMILY LEFT BEDSIDE. THIS RN TO ROOM. IV'S AND PRABHAKAR CATHETER REMOVED.
--- NOTE | 2021-07-29 17:31 | NUR ---
PASTOR NAGY ARRIVED TO BEDSIDE. STATES HE WILL CALL FAMILY TO FOLLOW UP. PAPERWORK COMPLETED. HOME NOTIFIED. PT POSITIONED FLAT. CLEAN DEPENDS IN PLACE. PT COVERED WITH SHEET.
--- NOTE | 2021-07-29 18:42 | NUR ---
I WAS NOTIFIED BY SERGEY VASQUEZ THAT PT HAD PASSED. FAMILY IN RM WITH PT. WHEN I ARRIVED, FAMILY HAD LEFT. DECISIONS HAD BEEN MADE PREVIOUS TO USE [facility]. I NOTIFIED THEM MET AT [facility]. RN'S COLTON VASQUEZ AND TERESA MUHAMMAD ASSISTED [facility]. ESCORTED PT DOWN TO LOADING DOCK WITH PT'S PERSONAL PILLOW AND PAPER WORK. FAMILY INFORMED BY TADEO MILAN TO CONTACT HOME FRIDAY.
== END 2021-07-29 18:20 | DRG 919 ==
LOC: ED 05:09 → MS 05:10
PROVIDERS: ADMIT Student in an Organized Health Care Education/Training Program; ATTEND Student in an Organized Health Care Education/Training Program
PROC: 5A0945A Assistance with Respiratory Ventilation, 24-96 Consecutive Hours, High Flow/Velocity Cannula (ICD-10-PCS; principal; 2021-07-27)
DX: T85.79XA Infection and inflammatory reaction due to other internal prosthetic devices, implants and grafts, initial encounter (principal); A41.9 Sepsis, unspecified organism; R65.20 Severe sepsis without septic shock; J96.01 Acute respiratory failure with hypoxia; K83.1 Obstruction of bile duct; I26.94 Multiple subsegmental thrombotic pulmonary emboli without acute cor pulmonale; J69.0 Pneumonitis due to inhalation of food and vomit; N17.9 Acute kidney failure, unspecified; K83.09 Other cholangitis; K86.1 Other chronic pancreatitis; I50.32 Chronic diastolic (congestive) heart failure; Z51.5 Encounter for palliative care; Z20.822 Contact with and (suspected) exposure to COVID-19; Z66 Do not resuscitate; Y83.8 Other surgical procedures as the cause of abnormal reaction of the patient, or of later complication, without mention of misadventure at the time of the procedure; I25.10 Atherosclerotic heart disease of native coronary artery without angina pectoris; K21.9 Gastro-esophageal reflux disease without esophagitis; M06.9 Rheumatoid arthritis, unspecified; R13.12 Dysphagia, oropharyngeal phase; F39 Unspecified mood [affective] disorder; T85.590A Other mechanical complication of bile duct prosthesis, initial encounter; M19.90 Unspecified osteoarthritis, unspecified site; E11.9 Type 2 diabetes mellitus without complications; I11.0 Hypertensive heart disease with heart failure; I25.2 Old myocardial infarction; Z95.1 Presence of aortocoronary bypass graft; Z85.038 Personal history of other malignant neoplasm of large intestine; Z98.890 Other specified postprocedural states; Z90.49 Acquired absence of other specified parts of digestive tract; Z85.828 Personal history of other malignant neoplasm of skin; Z88.8 Allergy status to other drugs, medicaments and biological substances; Z79.02 Long term (current) use of antithrombotics/antiplatelets; Z79.899 Other long term (current) drug therapy; Z79.4 Long term (current) use of insulin; Z79.52 Long term (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 steroids
CPT/HCPCS: 51702; 71045; 71260; 74177; 80048; 80053; 80202; 81001; 83605; 83690; 83880; 84484; 85007; 85025; 85379; 87040; 87088; 93005; 93010; 94760; 96367; 96372; 96375; 96376; 99285-25; C9113; C9803; G0378; J0456; J0692; J1650; J1720; J1815; J1956; J2270; J2405; J2550; J3370; J7060; J7121; Q9967; U0003